=== PATIENT | female | born 2005 | race Caucasian/White ===

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

== ENCOUNTER → 2023-01-04 | Outpatient (CLI) | payer OTHER, SELFPAY | END | disposition home or self-care (01) | LOC: LAB 16:28 | PROVIDERS: Referring Provider Nurse Practitioner Women's Health; Visit Provider Nurse Practitioner Women's Health | DX: R10.2 Pelvic and perineal pain (principal) | CPT/HCPCS: 87070; 87077; 87086; 87088; 87205 ==

== ENCOUNTER → 2023-07-08 | Outpatient (CLI) | payer OTHER, SELFPAY ==
[2023-07-12 21:06] LABS: Chlamydia By Nucleic Acid AMP Negative (Negative); Gonococcus By Nucleic Acid AMP Negative (Negative)
== END | disposition home or self-care (01) ==
LOC: LABSPEC 11:17
PROVIDERS: Referring Provider Registered Nurse; Visit Provider Registered Nurse
DX: Z34.90 Encounter for supervision of normal pregnancy, unspecified, unspecified trimester (principal)
CPT/HCPCS: 87086; 87088; 87491; 87591

== ENCOUNTER 2023-07-19 08:00 | Outpatient (RCR) | payer OTHER, SELFPAY ==
--- NOTE | 2023-07-19 09:00 | BH.COMM_ITS ---
Communication Note Communication with Client Communication Note: Met with pt to complete paperwork. Completed [facility] which noted low risk. Consulted Dr. Goodman with plan to admits to [facility] level of care with dx. F33.2
--- NOTE | 2023-07-19 09:02 | BH.SGPN.GN ---
Behaviors/Verbalizations/Mental Status: [] Pt alert and oriented, casually dressed and groomed. Eye contact good. Motor activity appropriate. Speech within normal limits. Affect congruent, mood depressed and anxious. Thoughts linear, logical, no signs of hallucinations or delusions. Reviewed pt?s symptom tracker, no risk for suicidal ideation, plan, or intent 07/19/23 Client Response/Progress/Benefit: []Pt first day in IOP tx, she responded well to session, participating in processing with group and providing supportive feedback throughout. Pt reports feeling hopeful this morning, as she is optimistic the IOP program will help in better managing her mental health sx. Pt reports struggling with a healthy work-life balance, especially since her daughter was born about 6-7 months ago. Pt reports that she and her fiance have been struggling for the past year and that pt specifically struggles with managing irritability when around him. Reports this has resulted in them deciding to continue to live together but take a break romantically. Pt reports that work is the only place I feel like myself and that she was recently given a promotion which is stressful but exciting for her. Pt shared wanting to work on emotion regulation, conflict resolution, and healthy boundaries while in IOP tx. Pt appeared to benefit from group support. Pt will continue IOP tx to promote mood stability, increase distress tolerance skills, and improve daily functioning. Narrative Note: []
--- NOTE | 2023-07-19 10:10 | BH.SGPN.GN ---
Behaviors/Verbalizations/Mental Status: []Pt alert and oriented, casually dressed and groomed. Eye contact good. Motor activity appropriate. Speech within normal limits. Affect congruent, mood euthymic and anxious. Thoughts linear, logical, no signs of hallucinations or delusions. Client Response/Progress/Benefit: []Pt was an active participant in activity and taking notes during group discussion. Attentive during psychoeducation on coping skills, why people use unhealthy coping skills, and how to replace unhealthy coping skills. Group came up with list of negative coping skills including not asking for help, avoidance, isolating, and sleeping. Group discussed the effects of how negative coping skills can impact mental health in a negative way. Benefited from increased understanding of unhealthy coping skills and the need for developing healthy internal and external coping skills. Pt will continue IOP tx to promote use of healthy coping skills, challenge distorted thoughts, and prevent decompensation.
--- NOTE | 2023-07-19 11:10 | BH.SGPN.GN ---
Behaviors/Verbalizations/Mental Status: []Pt alert and oriented, casually dressed and groomed. Eye contact good. Motor activity appropriate. Speech within normal limits. Affect congruent, mood euthymic and positive. Thoughts linear, logical, no signs of hallucinations or delusions Client Response/Progress/Benefit: []Pt responded well to session, taking notes and contributing. Group discussed the different categories of coping skills which included distraction, emotional release, grounding, self-love, and thought challenging.? Pt participated in creating a coping skills ?menu? from the five categories of coping skills. Pt's coping skill menu included: reading, writing, deep breathing, wins journal, and opposite action. Appeared to benefit from increasing repertoire of healthy coping skills. Will continue IOP tx to continue use of healthy coping skills, challenge distortions, and prevent decompensation.
--- NOTE | 2023-07-20 09:10 | BH.NA ---
Physical Data Vital Signs Pulse Rate: 77 Blood Pressure: 116/69 Height/Weight Height: 1.65 m Weight:: 87.543 kg Weight in Pounds: 193.0 lbs Current Medication Compliance Medication Compliance Do you take your medication as prescribed?: No (client states she is forgetful about taking iron and vitamin) Nutritional History Appetite Nutritional Instructions: Describe your appetite:: Good Additional nutritional information:: Client states she is 7 months PP and hasn't really lost any weight since the end of her . Client states her appetite is good, and denies decreased intake due to morning sickness with this . Functional Assessment Sleep Pattern Describe any problems with sleeping: Client states her sleep varies, sometimes 4 hours per night but usually more. Client does have a 7 month old baby. Sensory/Communication Assess Communication Problems Do you have difficulty understanding what people are saying?: No Medical Problems/History Cardiac Conditions Cardiovascular: Other (See comments) (client states she had some heart palpitations during her first with some tachycardia. Client states she did have a holter monitor test and was supposed to get an echocardiogram but did not. Client denies palpitations now.) Respiratory Conditions Respiratory: Asthma Metabolic Conditions Metabolic: Other (See comments) (history of gestational diabetes with first and was on insulin. States she will be getting a glucose tolerance test early this (currently 12 weeks )) Pain Assessment Do you have acute or chronic pain?: No Family History Family History Grandmother Cervical cancer, Onset Age: 40 maternal Family history of recurrent miscarriage maternal- 2 miscarriages Grandfather Myocardial infarction Father Heart disease Mother Family history of recurrent miscarriage 2 miscarriages Aunt Family history of recurrent miscarriage Maternal- 2 miscarriages Additional History Additional comments:: depression and anxiety after of first child Surgical History Surgical History Have you had any surgeries? If so, list type and date:: No Substance Abuse Substance Abuse Please describe substance abuse in the last 30 days:: Client denies alcohol use. Client states she did vape nicotine some in high school, but denies use now. Client denies substance use. Client states she occasionally has coffee, but has minimal caffeine use while . Mental Status Summary Mental Status Significant Findings/Observations on Appearance and Mood:: Client is alert and oriented x 4. Client is casually groomed. Client is cooperative with assessment. Client makes good eye contact. Client's voice has normal rate and volume. Client has appropriate affect. Client makes logical associations and has normal processing. Client denies delusions/hallucinations. Client denies SI. Suicide Assessment Suicidal Ideation Are you currently or have you been suicidal in the past?: No Suicidal Intentional Rating Scale (SIRS): No suicidal thoughts (past or present) Physician Notification Past Psychiatric History MH Treatment Hx Past Psychiatric Medications:: Zoloft (off and on since age 13), Lexapro Age of first mental health symptoms: Client states she was first on medication for depression symptoms at age 13. Describe (age, circumstance, etc) any past hospitalizations: None. Current providers for mental health treatment (counselor, psychiatrist, pillowcase folder, etc.): [facility] for counseling. Fall Risk Assessment Age Age: Less than 60 Mental Status Mental Status: Willing & able to ask for assistance when needed Physical Status Physical Status: No problems Impairments Impairments: None Elimination Elimination: Continent AND independent Gait or Balance Gait or Balance: Walks independently Hx of Falls History of falls in the past 6 months: No known history Medications/Substances Medications/substances used within the past 24 hours or ordered to administer: None of the medications/substances list above Total Score Total Points:: 0 RN Summary of Impressions Impressions Recommendations Impressions: Psychiatric Issues: 1. Bipolar 2 disorder 2. Generalized anxiety disorder 3. Panic disorder 4. History of PTSD Level of Care How do the client's current symptoms and functional deficits support need for this level of care?: Client comes to IOP at this time stating she wants to work on coping skills. Client states her biggest stressors are issues with her relationship with her significant other and erratic moods and mood swings. Client has a 7 month old baby and is 12 weeks . Client reports some guilt, stating she fears she is not a good mother. Client reports feeling depressed the last several months, but denies SI. IOP will promote gains and prevent further decompensation while providing social support and skills training.
[2023-07-20 09:38] VITALS: BP 116/69; PULSE 77
--- NOTE | 2023-07-20 10:05 | BH.SGPN.GN ---
Behaviors/Verbalizations/Mental Status: []Pt alert and oriented, casually dressed and groomed. Eye contact good. Motor activity appropriate. Speech within normal limits. Affect congruent, mood calm. Thoughts linear, logical, no signs of hallucinations or delusions. Client Response/Progress/Benefit: []Pt was an active participant during interactive group discussions. Attentive during psychoeducation on the six types of boundaries. Pt along with peers contributed to interactive discussion on defining what a boundary is and group identified challenges to setting boundaries. Pt discussed personal barriers of not wanting to hurt people?s feelings and fear of losing relationships. Group reviewed the 6 types of boundaries. Pt stated she does well with physical and sexual boundaries, but feels she needs to improve upon emotional, intellectual, material, and time. Pt benefited from increased awareness and insight on the importance/benefit to setting healthy boundaries. Will continue IOP tx to increase distress tolerance skills, improve daily functioning, and reduce interpersonal conflict. Narrative Note: []
--- NOTE | 2023-07-20 11:15 | BH.SGPN.GN ---
Behaviors/Verbalizations/Mental Status: []Pt alert and oriented, casually dressed and groomed. Eye contact good. Motor activity appropriate. Speech within normal limits. Affect congruent, mood dysthymic, agitated. Thoughts linear, logical, no signs of hallucinations or delusions. Client Response/Progress/Benefit: []Pt responded well to session AEB listening attentively to peers and providing input throughout. Pt attentive during psychoeducation on the different boundary styles. Pt identified she was previously rigid with her partner and feels she is now porous, noting both styles have created much conflict within the relationship. Pt was given a handout on strategies for healthy boundary setting. Identified wanting to practice self-reflection and reducing use of over-apologizing to improve her own boundaries. Appeared to benefit from increasing insight to boundary setting and the impacts on mental health. Seemed to benefit from increased awareness of boundary styles and strategies to improve setting boundaries. Will continue IOP tx to improve emotion regulation, promote use of healthy coping skills, and prevent decompensation. Narrative Note: []
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
--- NOTE | 2023-07-20 12:38 | BH.DR.ITP ---
Initial Treatment Plan Patient Information Visit Information: ADMISSION DATE: EXPECTED LOS: 4-6 weeks Problems/Symptoms Problem #1:: Mood instability Symptom:: Depression, sadness, irritability, anger outburst, anhedonia, hopelessness, worthlessness, biological disruption of sleep, low energy, guilt. Problem #2:: Worry, rumination, panic attacks, avoidance
--- NOTE | 2023-07-22 09:01 | BH.SGPN.GN ---
Behaviors/Verbalizations/Mental Status: [] Pt alert and oriented, Casually dressed and groomed. Eye contact good. Motor activity appropriate. Speech within normal limits. Affect congruent, mood anxious. Thoughts linear, logical, no signs of hallucinations or delusions. Reviewed pt?s symptom tracker, no risk for suicidal ideation, plan, or intent. Client Response/Progress/Benefit: []Client responded well to session as evidenced by listening attentively to others and sharing with others. Per symptom tracker client reported a 1/5, with 5 being severe, for depressed mood and a 1/5 for anxiety. Client reported mental health positive was getting up early this morning to do her makeup and get ready before IOP. Client stated a stressor was lashing out this morning at her fiance, but she noted improvement with being able to recover quicker and apologize. Client stated additional mental health positive as starting to have increased self-awareness of when she is getting upset so she can take a break before reacting negatively. Seemed to benefit from support from peers. Client to continue IOP to improve distress tolerance, increase healthy coping skills, and prevent decompensation.
--- NOTE | 2023-07-22 10:10 | BH.SGPN.GN ---
Behaviors/Verbalizations/Mental Status: [] Client alert and oriented, casually dressed and groomed. Eye contact good. Motor activity appropriate. Speech within normal limits. Affect congruent, mood anxious. Thoughts linear, logical, no signs of hallucinations or delusions. Client Response/Progress/Benefit: [] Client was an active participant, AEB taking notes and providing input in group discussions and activities. Attentive during psychoeducation. Client engaged during interactive discussion in which the group defined self-care and discussed its benefits. Group discussed barriers to engaging in self-care as well as benefits which included; decreased irritability, decreased stress/anxiety, improved physical health, increased productivity, etc. Client participated in small group where they worked to identify common self-care ?myths? (self-care is selfish, self-care is self-indulgent, self-care is just personal hygiene, self-care should be fun, self-care is too time consuming, I don?t deserve it, self-care means I?m not being productive).Benefited from increased awareness of self-care, its benefits, and the consequences of not utilizing self-care strategies. Will continue IOP tx to prevent decompensation, increase healthy coping skills, and to improve functioning. Narrative Note: []
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
--- NOTE | 2023-07-22 15:02 | BH.MTP_ITS ---
Master Treatment Plan Patient Information Program Physician:: Dr. Goodman Primary Therapist:: Antoinette Hamilton [facility] Psychiatric Diagnoses Psychiatric Diagnoses:: Diagnosis #1:: Bipolar 2 disorder Diagnosis #2:: Generalized anxiety disorder Diagnosis #3:: Panic disorder Diagnosis #4:: History of PTSD Diagnosis Code(s):: F31.81 Estimated LOS Estimated LOS (in weeks):: 6 Problem/Goal #1 Problem/Goal #1 Stated Goal:: Client will decrease mood instability, depressive symptoms, and agitation due to Bipolar II through Intensive Outpatient Program. Description of Barriers: Potential barriers to treatment is negative self-talk, interpersonal relationship stress, anxious thoughts, agitation, and low motivation. Functional Impact: The patient is a 18-year-old engaged female with a long history of depression with recent depression, anxiety and erratic mood who is 7 months and currently 12 weeks with a second . She was referred by a friend. She complains of erratic mood and irritability. She endorses being irritable and having anger outburst at times that her fianc?. She endorses sadness, hopelessness, worthlessness, guilt and anhedonia which is lessening lately. Objectives Objective #1: Stated Objective: Client will learn and utilize 2-3 healthy coping strategies to manage depressive symptoms. Interventions: Therapist and group therapy will utilize CBT techniques to assist client with understanding the connection between thoughts, feelings and behaviors. Education will be provided on behavioral activation. Therapist will assist client in learning internal coping strategies to manage depressive symptoms, along with helping client identify triggers. Target Date: 08/30/23 Review Date: 08/16/23 Objective #2: Stated Objective: Client will identify 5 physical warning signs of anger and 5 ways to calm and manage anger. Interventions: Through individual therapy and group work will help client explore warning signs to anger and ager management strategies. Discharge Criteria: Client will have met this goal after being able to identify anger triggers, warning signs, and effective ways to cope or manage anger. Target Date: 08/30/23 Review Date: 08/16/23 Problem/Goal #2 Problem/Goal #2 Stated Goal:: Stabilize anxiety level while increasing ability to function and decreasing ruminative thoughts on a daily basis through Intensive Outpatient Program. Description of Barriers: Potential barriers to treatment is negative self-talk, interpersonal relationship stress, anxious thoughts, agitation, and low motivation. Functional Impact: The patient is a 18-year-old engaged female with a long history of depression with recent depression, anxiety and erratic mood who is 7 months and currently 12 weeks with a second . She was referred by a friend. She complains of erratic mood and irritability. She endorses being irritable and having anger outburst at times that her fianc?. She endorses sadness, hopelessness, worthlessness, guilt and anhedonia which is lessening lately. Objectives Objective #1: Stated Objective: Client will learn and implement 2-3 calming skills to reduce overall anxiety and manage anxiety symptoms. Interventions: Therapist and group sessions will help client identify physiological warning signs of anxiety, increase awareness of thoughts that increase anxiety, and identify behaviors that reinforce anxious symptoms. Group and individual counseling will teach client calming skills to help manage anxious symptoms. Discharge Criteria: Client will have achieved this goal when can verbalize at least 2 calming skills and reports skills successfully help reduce anxious symptoms. Target Date: 08/30/23 Review Date: 08/16/23 Objective #2: Stated Objective: Pt will decrease anxious symptoms AEB pt?s score on the DSM 5 cross-cutting measure improve pt?s daily functioning. Interventions: Through groups and individual therapy, pt will be provided education about anxiety?s impact on body and common physiological reaction to anxiety. Therapist will teach pt appropriate breathing techniques and build healthy coping skills to manage daily anxieties. Discharge Criteria: Pt will have met this goal when pt?s score on the DSM 5 cross cutting measure for anxiety has been decreased and per pt?s report daily functioning has improved. Target Date: 08/30/23 Review Date: 08/16/23
--- NOTE | 2023-07-22 16:02 | BH.MDN_ITS ---
Multi-Disciplinary Note Note 30-min Individual: Time Started:: 12:10 Date: 07/22/23 Purpose of session/treatment goals addressed:: Purpose of session was to assess current symptoms and stressors, gather background information, and prevent decompensation. Eye Contact:: Good Motor Activity:: Restless Appearance:: Casual Speech:: Appropriate Mood:: Anxious and Depressed Affect:: Constricted Thoughts:: Linear, Logical and No evidence of hallucinations/delusions noted Staff Interventions:: CBT techniques, rapport building, strengths perspective and treatment planning Client Response:: Client reported she is seeking treatment due to erratic mood and irritability. Client is 7 months post and is currently 12 weeks . Her symptoms worsened after her 0-ydgfn-xmmb-old daughter was born although she was also depressed during the . She feels guilt that she is not a good enough mother often. She endorses being irritable and having anger outburst at times towards her fianc?. She endorses sadness, hopelessness, worthlessness, guilt and anhedonia. She states that about every other month she feels she gets in moods where she is happy, talks fast, thinks fast, and engages in impulsive spending. She stated this has not happened in the past 3 months but before she said she used to get it about every other month. She is a worrier by nature and had panic attacks but none since 4 months ago. Client reported she has daily conflict and arguments with her fianc?. 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 Client stated their relationship status changes and currently they are living together, but not together. Client reported she has been newly diagnosed as having Bipolar II. Client stated when manic she is constantly irritable , has short bursts of anger, racing thoughts, sleeps for 3 hours and has plenty of energy. She stated this state lasts 1-5 days. Client reported while in IOP she wants to learn how to manage her anger, improve coping skills, increase independence, and stabilize moods. Risks/Concerns:: Denies suicidal/homicidal ideation, plan, or intention to date. future oriented. Progress Toward Goals/Plan:: No progress observed given first day in program. Client is struggling with daily irritability that impacts personal relationships. Client struggles with low motivation which impacts ability to get things done around the house. Client recently diagnosed with Bipolar 2 disorder and is struggling with erratic moods. Client wants to learn how to better manage her anger, irritability, and gain healthy coping skills. Client is to continue IOP to improve mood stability, increase healthy coping, improve daily functioning, and prevent decompensation. Time Stopped:: 13:40
--- NOTE | 2023-07-27 09:05 | BH.SGPN.GN ---
Behaviors/Verbalizations/Mental Status: [] Eye contact is good. Motor activity is appropriate. Appearance is casual. Speech is Appropriate. Mood is anxious. Affect is congruent. Thoughts are linear and logical. No evidence of psychosis. Reviewed daily check in sheet and no reports of suicidal ideations or intent. Client Response/Progress/Benefit: [] Pt participated at times during the group discussion. Attentive. Daily symptom tracker notes 5 for anxiety and 2/5 for depression/anxiety. Mental health wins was I started a win journal . Shared the structure of the journal which includes writing daily wins and goals for the week. She completes this prior to bed and has found it very helpful in improving her mood before bed as well as when she wakes up in the AM. She has also scheduled upcoming self-care and times away from her young child. Elaborated on how this will be beneficial for her mental health. Progress noted per pt report. Benefited from group support, encouragment, and feedback. Will continue in IOP to prevent decompensation, stabilize mood, and increase healthy coping. Narrative Note: []
--- NOTE | 2023-07-27 10:10 | BH.SGPN.GN ---
Behaviors/Verbalizations/Mental Status: [] Client alert and oriented, casually dressed and groomed. Eye contact good. Motor activity appropriate. Speech within normal limits. Affect congruent, mood euthymic. Thoughts linear, logical, no signs of hallucinations or delusions. Client Response/Progress/Benefit: [] Client responded well to session AEB sharing and listening attentively to others. Group provided examples of benefits of having social support, including: feeling like you matter, security, and motivation. Client shared personal benefit of ability to fully express emotions. Client also participated in group discussion regarding the barriers to accessing support including personal examples like: not reaching out, lack of communication, and over using certain supports. Client participated in experiential activity illustrating the impact communication, boundaries, and patience play in creating healthy support systems. Client appeared to benefit from increased knowledge of the benefits of social support and greater self-awareness. Will continue IOP tx to prevent decompensation, increase self worth, and improve overall functioning. Narrative Note: []
--- NOTE | 2023-07-27 11:10 | BH.SGPN.GN ---
Behaviors/Verbalizations/Mental Status: [] Client alert and oriented, casually dressed and groomed. Eye contact good. Motor activity appropriate. Speech within normal limits. Affect congruent, mood euthymic. Thoughts linear, logical, no signs of hallucinations or delusions. Client Response/Progress/Benefit: [] Client was an active participant throughout AEB contributing to discussion, providing personal examples, and taking notes. Client processed emotions felt in the activity and how they coped in the moment. Client provided input during discussion on the types of support our supports can provide. Client able to identify current support system and barriers that get in the way of using supports by drawing out their own support net. Client reported after identifying what type of supports they receive; they gained awareness that they could benefit from more emotional supports. Client identified steps to achieve this by joining new groups, getting therapy, and use new skills to find relationships. Client shared increasing this support will help them by feeling more validated. Client seemed to benefit from identifying the type of support client needs to work on improving. Client recommended to continue IOP tx to prevent decompensation, challenge thinking patters, and increase emotional regulation skills. Narrative Note: []
--- NOTE | 2023-08-03 09:05 | BH.SGPN.GN ---
Behaviors/Verbalizations/Mental Status: [Patient was alert and oriented, appropriately dressed and groomed. Eye contact was good, motor activity normal, speech within normal limits. Affect congruent, mood content. Thoughts linear, logical, no signs of hallucinations or delusions. Reviewed Patients symptom tracker and the patient reports moderate/severe in anxiety/panic attacks, moderate in agitation/irritability/anger, and low/moderate in depressed mood. Patient does not report symptoms in self-harm urges or thoughts/risk of suicide. ] Client Response/Progress/Benefit: [Patient was engaged and open to the discussion. Patient reported her mood to be ?hurt?. Patients first and second win was that she and her daughter have been very sick but she managed to get 6 loads of laundry and some other chores done and also has been able to comfort her daughter although she is not doing well. Patients stressor is that her in-laws have some terminal illnesses and having to support her fianc? as well as help take care of them has been hard on her mental health. Patient was interactive and respectful with other group members about their mental wins and stressors. Patient benefited from the discussion by listening to feedback and giving input on her peer?s stressors and mental health wins. Patient will continue with IOP treatment to help develop healthy skills, promote mood stability, and improve distress tolerance. ] Narrative Note: []
--- NOTE | 2023-08-03 11:15 | BH.SGPN.GN ---
Behaviors/Verbalizations/Mental Status: []Pt alert and oriented, casually dressed and groomed. Eye contact good. Motor activity appropriate. Speech within normal limits. Affect congruent, mood tired. Thoughts linear, logical, no signs of hallucinations or delusions. Client Response/Progress/Benefit: [] Pt responded well to session AEB taking notes and contributing to discussion throughout. Pt engaged as group continued discussion on acceptance and the mental health benefits of practicing acceptance. Pt and peers identified what makes acceptance challenging and pt completed a self-reflection exercise on what is hard to accept in pt's life. Pt identified struggling to accept being a young mother?. Group identified strategies to increase acceptance and pt shared wanting to focus on continuing to move forward with difficult transitions and giving herself compassion. Pt appeared to benefit from gaining insight and learning strategies to increase acceptance. Pt will continue IOP tx to reduce negative thinking patterns, increase self-care practices, and improve emotional regulation skills. Narrative Note: []
--- NOTE | 2023-08-03 12:08 | PCM.BH.PN_ITS ---
Progress Note Progress Note: History of Present Illness/Interim History: The patient is a 18-year-old female with a long history of depression with recent depression, anxiety and erratic moods resulting in a diagnosis of bipolar 2 disorder. I last saw the patient 2 weeks ago and she is seen in follow-up today at the [facility] behavioral health IOP. The patient had started Latuda 2 weeks ago and she feels that she may be slightly improved in the past few days with her irritability. She denies any side effects on Latuda but she states that recently she had the flu for 2 days and missed her dose and did notice that she was more irritable and angry during the days off Latuda and then when she was taking it. She is making progress according to the staff and is engaged in the program when she attends. The patient states that she has had less anger outbursts in the past week while taking Latuda and less sadness. She has much less hopelessness now than before but still endorses guilt and mild anhedonia. She is sleeping okay now overall but sometimes she has to get up with her 7-month-old daughter who sometimes has sleep issues. She has somewhat low energy but is about 14 weeks . She denies passive thoughts of , suicidal ideation, homicidal ideation, plan for suicide, hallucinations or delusions. She described a history of what sounded like occasional hypomanic episodes at the initial visit. Current Psychiatric Medications: [] Latuda 20 mg p.o. daily with food (x 2 weeks) Mental Status Examination: [] The patient is a 18-year-old female who appears normal for stated age and is casually dressed and groomed with good hygiene. She has no psychomotor agitation or retardation and is ambulatory with a normal gait. She is cooperative and pleasant during the interview. Speech is normal rate and rhythm and fluent with no pressure and eye contact is good. Mood is somewhat irritable and down still. Affect is full and normal. Thought process is goal-directed and organized. Thought content: There is evidence still of some irritability and 1 anger outburst. There is no evidence of passive thoughts of , suicidal ideation, homicidal ideation, plan for suicide, hallucinations, delusions or symptoms of marilou. Reality testing is intact. Intelligence is above average. Judgment is intact. Insight improving and fair. Impulsivity moderate. Diagnoses: [] 1. Bipolar 2 disorder 2. Generalized anxiety disorder 3. Panic disorder 4. History of PTSD 5. 14-week intrauterine 6. Primary support issues Plan: [] The patient will continue the IOP in behavioral health at [facility] as the structure, support, education and group therapy will hopefully prevent worsening of the patient's symptoms which could require hospitalization. She felt safe during the interview and if it anytime she does not feel safe she will let us know or go to the emergency room. The risk, options, possible complications and side effects of the medications were discussed with the patient again and she understands and accepts these. She agrees to increase her Latuda to 40 mg daily with food in 2 days. Prescription is sent in for this. She understands she has to take it with food or it will not be absorbed. She will continue to follow-up with her outpatient providers medical and psychiatric and I will see the patient in follow-up in 2 weeks.
--- NOTE | 2023-08-04 09:05 | BH.SGPN.GN ---
Behaviors/Verbalizations/Mental Status: [] Eye contact is good. Motor activity is appropriate. Appearance is casual. Speech is Appropriate. Mood is depressed. Affect is congruent. Thoughts are linear and logical. No evidence of psychosis. Reviewed daily check in sheet and no reports of suicidal ideations or intent. Client Response/Progress/Benefit: [] Pt was an active participant in group discussion. Attentive. Daily symptom tracker notes 4/5 for depression and 3/5 for anxiety/irritability. Shared that she had been struggling since over the weekend. Trigger was getting sick which led to missed 2 days of psych medications. Increased anxiety, stress, and depression related to psychosocial stressors. She used the group to vent frustrations and triggers to anxiety. Group was able to refeame thoughts, provide support, and offer feedback which was helpful. Able to identify mental health wins which included helping out support and managing through a very stressful and overwhelming event which increase her confidence in her ability to manage her emotions as well as use skills. Limited progress noted. Has been medication compliant. Will continue in IOP to prevent decompensation, stablize mood, increase healthy coping, and improve functioning. Narrative Note: []
--- NOTE | 2023-08-04 10:15 | BH.SGPN.GN ---
Behaviors/Verbalizations/Mental Status: []Client alert and oriented, casually dressed and groomed. Eye contact good. Motor activity appropriate. Speech within normal limits. Affect congruent, mood depressed. Thoughts linear, logical, no signs of hallucinations or delusions. Client Response/Progress/Benefit: []Pt engaged in session AEB listening attentively to others and providing insight to group discussion. Pt engaged in activity, able to connect how it can be uncomfortable and difficult to accept when things are out of one?s own control. Pt worked with group to identify what things in life can be hard to accept. Group identified things hard to accept as: , body image, loss of relationship, mental health diagnosis, other?s behaviors, and past decisions. Pt worked on identifying what personal things are hard to accept for themself, sharing her parent's health, caregiving responsibilities, current , and finances are some things pt struggles with accepting. Pt seemed to benefit from increased awareness of importance of acceptance. Pt to continue IOP to improve mood stability, increase application of distress tolerance and behavior activation skills, and prevent decompensation. Narrative Note: []
--- NOTE | 2023-08-04 10:20 | BH.SGPN.GN ---
Behaviors/Verbalizations/Mental Status: []Pt alert and oriented, casually dressed and groomed. Eye contact good. Motor activity appropriate. Speech within normal limits. Affect congruent, mood tired but engaged. Thoughts linear, logical, no signs of hallucinations or delusions. Client Response/Progress/Benefit: [] Client connected with topic of Anxiety and participated throughout, providing input and taking notes. Participated throughout interactive discussion defining anxiety and identifying cognitive and physiological symptoms of anxiety. Group discussed how anxiety can prevent them from trying new things. Common physical and cognitive symptoms identified by group included: ?what if thoughts?, ?fear of failure?, negative self-talk, increased heart rate, restlessness, and getting sick more frequently. Client identified avoidance and reassurance seeking as their safety behaviors. Benefited from increased awareness and insight on anxiety and its impact. Pt will continue IOP tx to promote mood stability, increase self-compassion, and reduce irritability. ? Narrative Note: []
--- NOTE | 2023-08-04 11:15 | BH.SGPN.GN ---
Behaviors/Verbalizations/Mental Status: []Pt alert and oriented, causal appearance. Eye contact good. Motor activity appropriate. Speech within normal limits. Affect congruent, mood euthymic. Thoughts linear, logical, no signs of hallucinations or delusions. Client Response/Progress/Benefit: [] Pt was an active participant AEB pt providing input and listening attentively to peers. Attentive during psychoeducation on mindfulness coping skills and their impact on reducing anxiety and improving overall mental health wellness. Group was able to identify self-soothing and mind-based coping skills which included: 5-senses, meditation, deep breathing, journaling, and progressive muscle relaxation. Pt also participated with peers in practicing mindfulness skills in session. Pt would like to work on belly breathing, progressive muscle relaxation, and stretching. Appeared to benefit from increasing repertoire of anxiety reduction skills. Pt will continue in IOP tx to increase healthy coping skills, challenge distortions, and prevent decompensation.
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
--- NOTE | 2023-08-09 09:05 | BH.SGPN.GN ---
Behaviors/Verbalizations/Mental Status: [] Eye contact is good. Motor activity is appropriate. Appearance is casual. Speech is Appropriate. Mood is depressed. Affect is congruent. Thoughts are linear and logical. No evidence of psychosis. Reviewed daily check in sheet and no reports of suicidal ideations or intent. Client Response/Progress/Benefit: [] Pt was an active participant in group discussion. Attentive. Daily symptom tracker notes 2/5 for depression, anxiety, and irritability. Able to identify mental health wins which include getting back on my skincare routine , purchasing educational books on Bipolar, and utilizing opposite action. Emotion for today is unmotivated . Share an incident at work where she felt she has to choose between work and her child which resulted in conflict and frustration. Elaborated on how this impacted her mental health. Continue to report struggles with low energy, motivation, and depression which impacts her functioning. I just have a couple things to do but its a struggle . Benefited from group support, encouragement, and feedback. Progress noted per pt report. Will continue in IOP to prevent decompensation, stabilize mood, and increase healthy coping. Narrative Note: []
--- NOTE | 2023-08-09 10:15 | BH.SGPN.GN ---
Behaviors/Verbalizations/Mental Status: []Eye contact is good. Motor activity is appropriate. Appearance is casual. Speech is Appropriate. Mood is euthymic. Affect is congruent. Thoughts are linear and logical. No evidence of psychosis. Client Response/Progress/Benefit: [] Pt was an active participant in group discussions. Attentive during psychoeducation on the communication styles and the obstacles to effective communication. Contributed during interactive discussion on the benefits of communicating effectively which included; having one's needs met, decreases stress and uncertainty, improves relationships, increases trust, and increases understanding of others. Worked well in small group in which pt and peers identified the benefits and disadvantages to the different communication styles. Benefited from increased understanding of communication styles and how these can impact effective communication. Pt reports identifying most with passive-aggressive and aggressive communication. Pt states this impacts her relationship with her fianc?. Will continue in IOP to promote mood stability, increase distress tolerance, and improve self-compassion. ? Narrative Note: []
--- NOTE | 2023-08-09 11:15 | BH.SGPN.GN ---
Behaviors/Verbalizations/Mental Status: []Pt alert and oriented, causally dressed and groomed. Eye contact good. Motor activity appropriate. Speech within normal limits. Affect congruent, mood euthymic. Thoughts linear, logical, no signs of hallucinations or delusions. Client Response/Progress/Benefit: [] Pt responded well to session AEB Pt listening attentively to others and providing input during group discussion on the pay offs and costs of the different communication styles. Pt able to connect how current communication style impacts mental health. Connected with peers comments about importance of using assertive communication. Pt reported she wants to work on being more direct and learning to say no to others so she doesn't overwhelm herself. Pt seemed to benefit from increasing awareness of healthy strategies to improve communication. Will continue IOP tx to continue use of healthy coping skills, build confidence, and prevent decompensation.
--- NOTE | 2023-08-10 10:15 | BH.SGPN.GN ---
Behaviors/Verbalizations/Mental Status: []Patient was alert and oriented, casually dressed and groomed. Eye contact was good, motor activity normal, speech within normal limits. Affect congruent, mood content. Thoughts linear, logical, no signs of hallucinations or delusion Client Response/Progress/Benefit: [] Pt was an active participant in the group discussions AEB providing input and taking notes. Attentive during psychoeducation Goal Setting. Participated during the discussion on common barriers lack of motivation, making excuses, not feeling good enough, and lack of support. Group also identified benefits sense of purpose, improved self-confidence, more motivation for other goals, and improved mental health. Pt reports struggling specifically with barriers of making excuses and lack of motivation. Benefited from increased awareness of mental health benefits of goals as well as psychoeducation on SMART goal criteria. Will continue in IOP to promote mood stability, increase daily functioning, and further improve emotional regulation skills. Narrative Note: []
--- NOTE | 2023-08-10 11:15 | BH.SGPN.GN ---
Behaviors/Verbalizations/Mental Status: []Pt alert and oriented, neatly dressed and groomed. Eye contact good. Motor activity appropriate. Speech within normal limits. Affect congruent, mood euthymic. Thoughts linear, logical, no signs of hallucinations or delusions Client Response/Progress/Benefit: [] Pt was engaged during discussion and willing to complete the worksheet challenging them to develop a personal SMART goal. Pt chose the goal of finishing cleaning and putting away the box of clothes she has left to unpack. Pt stated this will ?take a weight off my shoulders? if pt can accomplish this goal. Pt identified making excuses, lack of motivation, and time management barriers. Identified solutions such as creating brain breaks, asking for support, and using opposite action. Pt receptive to identifying solutions for these barriers and willing to begin working on this goal. Benefited from this group by developing a short-term SMART goal related to mental health. Will continue IOP tx to promote mood stability, reduce negative thinking patterns, and increase emotional regulation skills. Narrative Note: []
--- NOTE | 2023-08-10 14:44 | BH.TPR ---
Treatment Plan Review Demographics Date of Admission:: 07/19/23 Date of Treatment Plan Review:: 08/10/23 Admitting Diagnoses:: 1. Bipolar 2 disorder F31.81 2. Generalized anxiety disorder 3. Panic disorder 4. History of PTSD Current Diagnoses:: 1. Bipolar 2 disorder F31.81 2. Generalized anxiety disorder 3. Panic disorder 4. 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 When pt attends she appears engaged AEB taking notes and providing input at times during group discussions. Pt does an overall good job of applying skills/strategies discussed in individual counseling to her daily life. Status of Current Problems and Symptoms: Ongoing problems. Pt is continuing to report moderate anxiety and depressed symptoms. Pt stated when her child is sick her anxiety and agitation tend to increase significantly. Pt reported when her agitation is higher it often leads to large blow ups between her and her fianc?. Pt reports variable motivation levels, low energy, anxious thoughts, and mild to moderate anxiety. Per pt's DSM 5 cross cutting measure at review her overall mental health symptoms have decreased by 43%. Progress Problem #1: Problem Name:: Mood Instability Status of Goals:: Obj 1 - met, ongoing work encouraged. Pt is able to identify healthy coping skills like opposite action, taking a break, exercise, and thought challenge. Client does struggle with consistent use of skills at times. Obj 2 -not met. Pt is able to identify triggers to anger and strategies that can help her in the moment calm down. However, pt reports continued struggle with managing her emotions when having an argument with her fiance. Per pt's DSM 5 cross cutting measure her anger/agitation has decreased by 50%. Team Recommendations:: Team recommends pt continue current goals and objectives to reinforce consistent use of healthy coping skills, and help build calming skills for agitation and anxiety. Problem #2: Problem Name:: Anxiety Status of Goals:: Obj 1 - not met. Pt is able to identify calming skills like belly breathing, grounding, and mindfulness. Patient is starting to utilize the skills but struggles with consistency. Objective 2 - not met. Per DSM-V cross-cutting measures at review anxiety has reduced by 12%. Team Recommendations:: Team recommends pt continue current goals and objectives to reinforce consistent use of healthy coping skills, and help build calming skills for agitation and anxiety.
--- NOTE | 2023-08-11 09:05 | BH.SGPN.GN ---
Behaviors/Verbalizations/Mental Status: []Eye contact is good. Motor activity is appropriate. Appearance is casual. Speech is Appropriate. Mood is euthymic. Affect is congruent. Thoughts are linear and logical. No evidence of psychosis. Reviewed daily check in sheet and no reports of suicidal ideations or intent. Client Response/Progress/Benefit: []Pt responded well to session, attentive and providing input to peers. Pt reports feeling joyful this morning as pt feels she is utilizing healthy coping skills and it is working out well for pt. Pt shared that she has been working on conflict resolution skills by using a code word with her fiance when things get too heated and they were able to de-escalate a big argument last night using this technique. Pt stated that because she is managing her emotions better, she is less emotional reactive to other stressors like this morning when her baby had a blow out right when I was walking out the door. Pt also gave herself credit for getting up early today and practicing some self-care by putting on makeup. Pt's stressor today is her job and feeling like she is burnout. Pt receptive to feedback from group of writing a pros and cons list of leaving or staying at her job. Pt appeared to benefit from reflecting on her application of healthy coping skills. Pt will continue IOP tx to promote mood stability, reinforce healthy coping skills, and improve daily functioning. Narrative Note: []
--- NOTE | 2023-08-11 10:15 | BH.SGPN.GN ---
Behaviors/Verbalizations/Mental Status: []Pt alert and oriented, casually dressed and groomed. Eye contact good. Motor activity appropriate. Speech within normal limits. Affect congruent, mood euthymic. Thoughts linear, logical, no signs of hallucinations or delusions. Client Response/Progress/Benefit: []Pt was an active participant in group discussion and activity. Attentive during psychoeducation. Along with peers, pt was able to identify barriers to taking action in their life. Identified several symptoms and stressors that she feels are holding her back from progress such as negative self-talk, self-doubt, low motivation, and codependency. Stated these things have kept pt from making healthy changes, stepping out of her comfort zone, setting and maintaining healthy boundaries, and reinforced self-sabotage. Pt shared that she wants to begin addressing the impact negative perspective and relying on other's opinions has had on her ability to take action. Benefited from increased self-awareness of obstacles. Will continue IOP tx to improve mood management, promote consistent skill application, and further promote healthy conflict resolution and communication. Narrative Note: []
== END 2023-08-17 23:59 ==
LOC: BHIOP 08:00
PROVIDERS: Referring Provider Psychiatry & Neurology Psychiatry; Visit Provider Psychiatry & Neurology Psychiatry
DX: O99.341 Other mental disorders complicating pregnancy, first trimester (principal); F31.81 Bipolar II disorder; F41.1 Generalized anxiety disorder; F41.0 Panic disorder [episodic paroxysmal anxiety]; Z3A.12 12 weeks gestation of pregnancy
CPT/HCPCS: S9480; 90832; 90834; 90853

== ENCOUNTER → 2023-08-04 | Outpatient (CLI) | payer OTHER, SELFPAY ==
[2023-08-04 13:36] LABS: Basophil# 0.02 X10^3/uL; Basophil% 0.3 % (0-1); Eosinophil# 0.13 X10^3/uL; Eosinophils% 1.7 % (0-5); Hematocrit 38.9 % (37-47); Hemoglobin 13.5 g/dL (12.0-15.0); Lymphocyte % 25.2 % (19-41); Mean Corp Hgb Conc 34.7 g/dL (32-36); Mean Corpuscular Volume 86.4 fL (81-99); Mean Platelet Vol. 10.8 fl (6.2-12.0); Monocyte# 0.46 X10^3/uL; Monocyte% 6.1 % (0-10); NRBC Flagged by Analyzer 0 % (0-5); Neutrophil # 4.99 X10^3/uL (2.7-7.7); Neutrophil % 66.3 % (47-70); Platelet Count 274 K/mm3 (150-450); RBC Distribution Width SD 41.1 fl (35.1-43.9); White Blood Count 7.5 K/mm3 (4.4-11.0)
--- OUTSIDE RECORDS SUMMARY | 2023-08-04 13:36 | XMS RPT_ITS | CCD ---
Author Name Unknown Address [address] [place] [address] Organization [facility] Care Team Providers Care Long Term Care Administrator Name Role Phone Playl Aden YOUNGER Primary Care Provider Aamir Mckeon DO Primary Care Provider [phone] AAMIR MCKEON Primary Care Unavailable Medications Current Medications Medication Drug Class(es) Dates Sig (Normalized) Sig (Original) amoxicillin 875 mg / clavulanate 125 mg oral tablet (1 source) Penicillin-class Antibacterial Start: 05-25-2023 End: 06-01-2023 take 1 tablet by mouth twice daily amoxicillin-clav ulanate potassium (AUGMENTIN) 875-125 mg per tablet Take 1 tablet by mouth two times a day for 7 days. 14 tablet 0 05/25/2023 06/01/2023 Active Completed/Discontinued Medications Medication Drug Class(es) Dates Sig (Normalized) Sig (Original) [id number] 200 actuat albuterol 0.09 mg/actuat metered dose inhaler (3 sources) beta2-Adrenergic Agonist Start: 08-27-2021 take 2 puff(s) by inhalation every six hours as needed for wheezing albuterol HFA (PROVENTIL HFA, VENTOLIN HFA) 90 mcg/actuation inhaler Inhale 2 Puffs as instructed every 6 hours as needed for wheezing/shortnes s of breath. Administer using a spacer. 1 Inhaler 2 08/27/2021 Active Problems Active Problems Problem Classification Problem Date Documented Date Episodic/Chronic Anxiety disorders (3 sources) Generalized anxiety disorder; Translations: [Generalized anxiety disorder] Onset: 08-04-2021 08-04-2021 Chronic Asthma (3 sources) Uncomplicated mild persistent asthma; Translations: [Mild persistent asthma, uncomplicated] Onset: 09-27-2016 08-27-2021 Chronic Mood disorders (3 sources) Depressive disorder; Translations: [Depression] Onset: 08-04-2021 08-04-2021 Chronic Other connective tissue disease (1 source) Swelling of hand; Translations: [Other specified soft tissue disorders] Episodic Other upper respiratory infections (1 source) Bacterial sinusitis; Translations: [Chronic sinusitis, unspecified] 05-25-2023 Chronic Past or Other Problems Problem Classification Problem Date Documented Da te Episodic/Chronic Acquired foot deformities (3 sources) Talipes planus; Translations: [Flat foot [pes planus] (acquired), unspecified foot] Onset: 07-20-2017 07-20-2017 Episodic Other skin disorders (3 sources) Acne vulgaris; Translations: [Acne vulgaris] Onset: 08-18-2015 08-18-2015 Episodic Residual codes; unclassified (3 sources) Influenza vaccination declined; Translations: [Immunization not carried out because of patient refusal] Onset: 07-20-2017 07-20-2017 Episodic Results Test Name Value Interpretation Reference Range Facil ity Vital Signs Date Time Vital Sign Value Performing Clinician Mary [email or web address] 05-25-2023 10:28-0500 Body temperature 98.01 [degF] Becca Athy PA-C Work Phone: [facility] 05-25-2023 10:28-0500 Body weight 89.9 kg Becca Athy PA-C Work Phone: [facility] 05-25-2023 10:28-0500 Diastolic blood pressure 72 mm[Hg] Becca Athy PA-C Work Phone: [facility] 05-25-2023 10:28-0500 Heart rate 90 /min Becca Athy PA-C Work Phone: [facility] 05-25-2023 10:28-0500 Respiratory rate 18 /min Becca Athy PA-C Work Phone: [facility] 05-25-2023 10:28-0500 SaO2% (BldA) [Mass fraction] 98 % Becca Athy PA-C Work Phone: [facility] 05-25-2023 10:28-0500 Systolic blood pressure 110 mm[Hg] Becca Athy PA-C Work Phone: [facility] 11-05-2021 12:07-0400 Body temperature 98.1 [degF] Becca Sty PA-C Work Phone: [facility] 11-05-2021 12:07-0400 Body weight 77.66 kg Becca Sty PA-C Work Phone: [facility] 11-05-2021 12:07-0400 Diastolic blood pressure 72 mm[Hg] Becca Sty PA-C Work Phone: [facility] 11-05-2021 12:07-0400 Heart rate 66 /min Becca Sty PA-C Work Phone: [facility] 11-05-2021 12:07-0400 Respiratory rate 16 /min Becca Sty PA-C Work Phone: [facility] 11-05-2021 12:07-0400 SaO2% (BldA) [Mass fraction] 100 % Becca Stearns PA-C Work Phone: [facility] 11-05-2021 12:07-0400 Systolic blood pressure 124 mm[Hg] Becca Sty PA-C Work Phone: [facility] Encounters Encounter Date Encounter Type Care Provider Facility Start: 05-25-2023 End: 05-25-2023 ambulatory AAMIR MCKEON Facility:[facility] Start: 05-25-2023 End: 05-25-2023 Patient encounter procedure Beccaangelito Stearns PA-C Work Phone: [facility] Procedures Date Procedure Procedure Detail Performing Clinician Start: 08-27-2021 Adult depression screening assessment Becca Stearns PA-C Work Phone: Plan of Treatment Date Care Activity Detail Author Start: 11-03-2032 Urine microalbumin profile DTa P,Tdap,Td Vaccine (8 - Td or Tdap) [facility] Start: 02-05-2026 Urine microalbumin profile DTA P,TDAP,TD (7 - Td or Tdap) [facility] Start: 08-27-2023 ASTHMA ACTION PLAN ASTHMA ACTION JADYN N [facility] Start: 03-18-2023 Influenza vaccination Influenza Vacc ine (#1) [facility] Start: 11-16-2022 CHLAMYDIA SCREENING (18-24) CHLAMYDIA SCREENING (18-24) [facility] Start: 11-16-2022 GC (GONORRHEA) SCREE SHEYLA (18-24) GC (GONORRHEA) SCREENING (18-24) [facility] Start: 08-27-2022 Adult depression scr eening assessment DEPRESSION SCREENING [facility] Start: 08-27-2022 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 GONZALO DISEASE VISIT ANNUAL PCP TEAM CHRONIC DISEASE VISIT [facility] Start: 08-27-2022 ASTHMA CONTROL TEST ASTHMA CONTROL T EST [facility] Start: 03-18-2022 Influenza vaccination INFLUENZA (Sea son Ended) [facility] Start: 2021 CHLAMYDIA SCREENING (18-24) CHLAMYDIA SCREENING (18-24) [facility] Start: 2021 GC (GONORRHEA) SCREE SHEYLA (18-24) GC (GONORRHEA) SCREENING (18-24) [facility] Start: 2021 HEPATITIS C SCREENING HEPATITIS C SC REENING [facility] Start: 2021 HIV SCREENING HIV SCREENING [facility] Start: 2021 SPIROMETRY SPIROMETRY [facility] Start: 2019 Meningococcal B Vacc ine: Consider Based On Risk (1 of 2 - Patient Seeks Protection) Meningococcal B Vaccine: Consider Based On Risk (1 of 2 - Patient Seeks Protection) [facility] Start: 2019 MENINGOCOCCAL CONJUG ATE (2 - 2-dose series) MENINGOCOCCAL CONJUGATE (2 - 2-dose series) [facility] Start: 2017 PEDS TO ADULT TRANSI TION ANNUAL ASSESSMENT PEDS TO ADULT TRANSITION ANNUAL ASSESSMENT [facility] Start: 2015 PEDS TO ADULT TRANSI TION INITIAL DISCUSSION PEDS TO ADULT TRANSITION INITIAL DISCUSSION [facility] Start: 2013 MENINGOCOCCAL B: Con fur glazer based on risk (1 of 2 - Risk Bexsero 2-dose series) MENINGOCOCCAL B: Consider based on risk (1 of 2 - Risk Bexsero 2-dose series) [facility] Start: 2009 Pneumococcal vaccination Pneum ococcal Vaccine (1 - PCV) [facility] Start: 2008 COVID-19 VACCINE (1) COVID-19 VACCIN E (1) [facility] Start: 2003 Covid-19 Vaccine (#1) Cov[facility] Vacci ne [facility] Immun[facility] Immunization Date Immunization Notes Care Provider Fa florencia 07-20-2017 Human Papillomavirus 9-valent vaccine Becca Stearns PA-C Work Phone: [facility] Work Phone: 07-20-2017 influenza virus vacc ine, unspecified formulation Becca RODRIGUEZMobile[employer] Work Phone: [facility] 02-06-2016 Human Papillomavirus 9-valent vaccine Becca MARINAOddcast Work Phone: [facility] Work Phone: 02-06-2016 meningococcal polysaccharide (groups A, C, Y and W-135) diphtheria toxoid conjugate vaccine (MCV4P) Becca [employer]RIGUE[employer]Mobile[employer] Work Phone: [facility] Work Phone: 02-06-2016 tetanus toxoid, redu joesph diphtheria toxoid, and acellular pertussis vaccine, adsorbed Becca [employer] Work Phone: [facility] Work Phone: 02-06-2016 varicella virus vaccine Becca Stearns PA-C Work Phone: [facility] Work Phone: 05-12-2009 influenza virus vacc ine, live, attenuated, for intranasal use Becca [employer] Work Phone: [facility] Work Phone: 02-11-2009 diphtheria, tetanus toxoids and acellular pertussis vaccine Becca Stearns PA-C Work Phone: [facility] Work Phone: 02-11-2009 measles, mumps and rubella virus vaccine Becca Stearns PA-C Work Phone: [facility] Work Phone: 02-11-2009 poliovirus vaccine, inactivated Becca Athy PA-C Work Phone: [facility] Work Phone: 01-05-2005 diphtheria, tetanus toxoids and acellular pertussis vaccine Becca Athy PA-C Work Phone: [facility] 01-05-2005 haemophilus influenz ae type b vaccine, HbOC conjugate Becca Athy PA-C Work Phone: [facility] 01-05-2005 pneumococcal conjuga te vaccine, 7 valent Becca Athy PA-C Work Phone: [facility] 09-02-2004 measles, mumps and rubella virus vaccine Becca Athy PA-C Work Phone: [facility] 09-02-2004 varicella virus vaccine Becca Athy PA-C Work Phone: [facility] 04-22-2004 pneumococcal conjuga te vaccine, 7 valent Becca Athy PA-C Work Phone: [facility] 01-22-2004 diphtheria, tetanus toxoids and acellular pertussis vaccine Becca Athy PA-C Work Phone: [facility] 01-22-2004 haemophilus influenz ae type b vaccine, HbOC conjugate Becca Athy PA-C Work Phone: [facility] 01-22-2004 hepatitis B vaccine, pediatric or pediatric/adolescent dosage Becca Athy PA-C Work Phone: [facility] 01-22-2004 poliovirus vaccine, inactivated Becca Athy PA-C Work Phone: [facility] 2003 diphtheria, tetanus toxoids and acellular pertussis vaccine Becca Athy PA-C Work Phone: [facility] 2003 haemophilus influenz ae type b vaccine, HbOC conjugate Becca Athy PA-C Work Phone: [facility] 2003 pneumococcal conjuga te vaccine, 7 valent Becca Athy PA-C Work Phone: [facility] 2003 poliovirus vaccine, inactivated Becca Athy VENTURA Work Phone: [facility] 2003 diphtheria, tetanus toxoids and acellular pertussis vaccine Becca Stearns JENNIFER-Angeline Work Phone: [facility] 2003 haemophilus influenz ae type b vaccine, HbOC conjugate Becca Stmalaika RODRIGUEZ-C Work Phone: [facility] 2003 pneumococcal conjuga te vaccine, 7 valent Beccaangelito Stmalaika RODRIGUEZ-C Work Phone: [facility] 2003 poliovirus vaccine, inactivated Becca Stmalaika RODRIGUEZ-C Work Phone: [facility] 2003 hepatitis B vaccine, pediatric or pediatric/adolescent dosage Becca Stmalaika RODRIGUEZ-Angeline Work Phone: [facility] 2003 hepatitis B vaccine, pediatric or pediatric/adolescent dosage Becca Stmalaika RODRIGUEZ-C Work Phone: [facility] Payers Date Payer Category Payer Private Health Insurance [employer] A ETNA CHOICE POS II [id number] 2011-Present [phone] [address] [place] [address] POS [id number] Social History Date Type Detail Facility Start: 05-25-2023 Tobacco smoking stat [facility] Never smoked tobacco [facility] Start: 11-05-2021 End: 05-25-2023 Alcohol intake Lifetime non-drinker (finding) [facility] Start: 11-05-2021 History SDOH Alcohol Frequency 1 [facility] Start: 2003 Sex Assigned At Not on file [facility] Start: 10-26-2021 End: 11-16-2021 Exposure to SARS-CoV-2 (event) Not sure [facility] Start: 05-25-2023 Tobacco use and exposure Smoke less tobacco non-user [facility] Start: 11-23-2022 End: 05-25-2023 History of Social function [facility] Start: 11-23-2022 End: 05-25-2023 Tobacco use panel [facility] National Score (1-10 0), lower number is lower risk 90 [facility] Progress note 05-25-2023 Note Date & Type Note Facility 05-25-2023 Note HNO ID: [id number] Author: Becca Stearns PA-C Service: ? Author Type: Physician Rn Night Type: Progress Notes Filed: 05/25/2023 11:27 AM Note Text: This note was created using AppSheetriter. Subjective Shawanda Staley is a 17 year old female. HPI Patient presents with the chief complaint of sinus pressure and congestion for 2 weeks. She has also had a cough. She denies a fever. No vomiting or diarrhea. Her daughter had been sick with bronchiolitis recently. She is not currently breast-feeding but does think she is . Last menstrual cycle was April 23 and she took 2 home test which were positive. No OTC meds used. Review of Systems Constitutional: Negative. HENT: Positive for congestion, rhinorrhea, sinus pressure and sinus pain. Negative for ear pain. Respiratory: Positive for cough. Negative for shortness of breath and wheezing. Cardiovascular: Negative. Gastrointestinal: Negative. Genitourinary: Negative. Musculoskeletal: Negative. All other systems reviewed and are negative. PAST MEDICAL HISTORY Diagnosis Date Acne vulgaris 08/18/2015 Cough variant asthma 09/27/2016 PMH - PAST MEDICAL HISTORY OF vascular rose left ankle Current Outpatient Medications Medication Sig Dispense Refill amoxicillin-clavulanate potassium (AUGMENTIN) 875-125 mg per tablet Take 1 tablet by mouth two times a day for 7 days. 14 tablet 0 sertraline (ZOLOFT) 50 mg tablet Take 1 tablet by mouth once daily. (Patient not taking: Reported on 05/25/2023) 30 tablet 1 albuterol HFA (PROVENTIL HFA, VENTOLIN HFA) 90 mcg/actuation inhaler Inhale 2 Puffs as instructed every 6 hours as needed for wheezing/shortness of breath. Administer using a spacer. (Patient not taking: Reported on 11/05/2021 ) 1 Inhaler 2 fluticasone (FLOVENT HFA) 110 mcg/actuation inhaler Inhale 2 Puffs as instructed twice daily. (Patient not taking: Reported on 05/25/2023) 1 Inhaler 5 GIANVI, 28, 3-0.02 mg per tablet (Patient not taking: Reported on 05/25/2023) No current facility-administered medications for this visit. PAST SURGICAL HISTORY Procedure Laterality Date NONE FAMILY HISTORY Problem Relation Age of Onset Cancer Other PATERNAL AND MATERNAL SIDES Diabetes Other PATERNAL AND MATERNAL SIDES other (CLOTTING DISORDER) Other PATERNAL SIDE - FACTOR 5 DISORDER Paternal great aunt other (AL) Maternal Grandfather 49 Social History Tobacco Use Smoking status: Never Smokeless tobacco: Never Substance Use Topics Alcohol use: Never Drug use: Never Objective BP 110/72 Pulse 90 Temp 36.7 ?C (98 ?F) (Tympanic) Resp 18 Wt 89.9 kg (198 lb 3.2 oz) LMP 11/04/2021 SpO2 98% Physical Exam Vitals reviewed. Constitutional: Appearance: Normal appearance. HENT: Head: Normocephalic and atraumatic. Right Ear: Tympanic membrane, ear canal and external ear normal. Left Ear: Tympanic membrane, ear canal and external ear normal. Nose: Congestion present. Right Sinus: Maxillary sinus tenderness present. Left Sinus: Maxillary sinus tenderness present. Mouth/Throat: Mouth: Mucous membranes are moist. Pharynx: Oropharynx is clear. Cardiovascular: Rate and Rhythm: Normal rate and regular rhythm. Heart sounds: Normal heart sounds. Pulmonary: Effort: Pulmonary effort is normal. Breath sounds: Normal breath sounds. Musculoskeletal: Cervical back: Neck supple. Skin: General: Skin is warm and dry. Neurological: Mental Status: She is alert. Assessment and Plan ASSESSMENT/PLAN: 1. Bacterial sinusitis - ICD9: 473.9, 041.9, ICD10: J32.9, B96.89 - Will begin treatment with Augmentin 875 mg PO BID for 7 days - Supportive care with plenty of fluids, rest, and analgesia prn. - Follow up in 3-5 days if symptoms persist or worsen. Becca Stearns PA-C [facility] History of Present illness Narrative 05-25-2023 Becca Stearns PA-C - 05/25/2023 11:23 AM EST Note Date & Type Note Facility 05-25-2023 History of Presen t illness Narrative This note was created using NoteWriter. Subjective Shawanda Staley is a 17 year old female. HPI Patient presents with the chief complaint of sinus pressure and congestion for 2 weeks. She has also had a cough. She denies a fever. No vomiting or diarrhea. Her daughter had been sick with bronchiolitis recently. She is not currently breast-feeding but does think she is . Last menstrual cycle was April 23 and she took 2 home test which were positive. No OTC meds used. Review of Systems Constitutional: Negative. HENT: Positive for congestion, rhinorrhea, sinus pressure and sinus pain. Negative for ear pain. Respiratory: Positive for cough. Negative for shortness of breath and wheezing. Cardiovascular: Negative. Gastrointestinal: Negative. Genitourinary: Negative. Musculoskeletal: Negative. All other systems reviewed and are negative. PAST MEDICAL HISTORY Diagnosis Date Acne vulgaris 08/18/2015 Cough variant asthma 09/27/2016 PMH - PAST MEDICAL HISTORY OF vascular rose left ankle Current Outpatient Medications Medication Sig Dispense Refill amoxicillin-clavulanate potassium (AUGMENTIN) 875-125 mg per tablet Take 1 tablet by mouth two times a day for 7 days. 14 tablet 0 sertraline (ZOLOFT) 50 mg tablet Take 1 tablet by mouth once daily. (Patient not taking: Reported on 05/25/2023) 30 tablet 1 albuterol HFA (PROVENTIL HFA, VENTOLIN HFA) 90 mcg/actuation inhaler Inhale 2 Puffs as instructed every 6 hours as needed for wheezing/shortness of breath. Administer using a spacer. (Patient not taking: Reported on 11/05/2021 ) 1 Inhaler 2 fluticasone (FLOVENT HFA) 110 mcg/actuation inhaler Inhale 2 Puffs as instructed twice daily. (Patient not taking: Reported on 05/25/2023) 1 Inhaler 5 GIANVI, 28, 3-0.02 mg per tablet (Patient not taking: Reported on 05/25/2023) No current facility-administered medications for this visit. PAST SURGICAL HISTORY Procedure Laterality Date NONE FAMILY HISTORY Problem Relation Age of Onset Cancer Other PATERNAL & MATERNAL SIDES Diabetes Other PATERNAL & MATERNAL SIDES other (CLOTTING DISORDER) Other PATERNAL SIDE - FACTOR 5 DISORDER Paternal great aunt other (AL) Maternal Grandfather 49 Social History Tobacco Use Smoking status: Never Smokeless tobacco: Never Substance Use Topics Alcohol use: Never Drug use: Never Objective BP 110/72 Pulse 90 Temp 36.7 C (98 F) (Tympanic) Resp 18 Wt 89.9 kg (198 lb 3.2 oz) LMP 11/04/2021 SpO2 98% Physical Exam Vitals reviewed. Constitutional: Appearance: Normal appearance. HENT: Head: Normocephalic and atraumatic. Right Ear: Tympanic membrane, ear canal and external ear normal. Left Ear: Tympanic membrane, ear canal and external ear normal. Nose: Congestion present. Right Sinus: Maxillary sinus tenderness present. Left Sinus: Maxillary sinus tenderness present. Mouth/Throat: Mouth: Mucous membranes are moist. Pharynx: Oropharynx is clear. Cardiovascular: Rate and Rhythm: Normal rate and regular rhythm. Heart sounds: Normal heart sounds. Pulmonary: Effort: Pulmonary effort is normal. Breath sounds: Normal breath sounds. Musculoskeletal: Cervical back: Neck supple. Skin: General: Skin is warm and dry. Neurological: Mental Status: She is alert. Assessment and Plan ASSESSMENT/PLAN: 1. Bacterial sinusitis - ICD9: 473.9, 041.9, ICD10: J32.9, B96.89 - Will begin treatment with Augmentin 875 mg PO BID for 7 days - Supportive care with plenty of fluids, rest, and analgesia prn. - Follow up in 3-5 days if symptoms persist or worsen. Becca Stearns PA-C documented in this encounter [facility] Note 11-17-2021 Telephone Encounter - Divya Echols APRN.SUSANA - 11/17/2021 8:08 AM EDT Note Date & Type Note Facility 11-17-2021 Miscellaneous Notes Attempted to call patient left message to return call. Patient is positive for BV prescribed flagyl bid for 7 days. Negative for GC, chlamydia, yeast, and trich. If patient calls back tell her about antibiotics prescribed and to follow up if the symptoms do not get better with treatment or anything changes. Thank you. talked with patient okay with this care plan. documented in this encounter [facility] History of Present illness Narrative 11-05-2021 Becca Stearns PA-C - 11/05/2021 12:58 PM EDT Note Date & Type Note Facility 11-05-2021 History of Presen t illness Narrative This note was created using AppSheetriter. Subjective Shawanda Staley is a 16 year old female. HPI Presents with a swollen left hand. She had donated plasma yesterday and gradually throughout the day noticed her hand was a little more swollen than on the right. She did have an IV in the left AC. Denies any pain in her AC area. No fever or chills. She has not donated blood previously. No chest pain or shortness of breath. Review of Systems Musculoskeletal: Left hand swelling All other systems reviewed and are negative. PAST MEDICAL HISTORY Diagnosis Date Acne vulgaris 08/18/2015 Cough variant asthma 09/27/2016 PMH - PAST MEDICAL HISTORY OF vascular rose left ankle Current Outpatient Medications Medication Sig Dispense Refill sertraline (ZOLOFT) 50 mg tablet Take 1 tablet by mouth once daily. 30 tablet 1 fluticasone (FLOVENT HFA) 110 mcg/actuation inhaler Inhale 2 Puffs as instructed twice daily. 1 Inhaler 5 GIANVI, 28, 3-0.02 mg per tablet albuterol HFA (PROVENTIL HFA, VENTOLIN HFA) 90 mcg/actuation inhaler Inhale 2 Puffs as instructed every 6 hours as needed for wheezing/shortness of breath. Administer using a spacer. (Patient not taking: Reported on 11/05/2021 ) 1 Inhaler 2 No current facility-administered medications for this visit. PAST SURGICAL HISTORY Procedure Laterality Date NONE FAMILY HISTORY Problem Relation Age of Onset Cancer Other PATERNAL & MATERNAL SIDES Diabetes Other PATERNAL & MATERNAL SIDES other (CLOTTING DISORDER) Other PATERNAL SIDE - FACTOR 5 DISORDER Paternal great aunt other (AL) Maternal Grandfather 49 Social History Tobacco Use Smoking status: Never Smoker Smokeless tobacco: Never Used Substance Use Topics Alcohol use: Never Drug use: Never Objective BP 124/72 Pulse 66 Temp 36.7 C (98.1 F) Resp 16 Wt 77.7 kg (171 lb 3.2 oz) LMP 11/04/2021 SpO2 100% Physical Exam Vitals reviewed. Constitutional: Appearance: Normal appearance. HENT: Head: Normocephalic and atraumatic. Musculoskeletal: Comments: Patient has mild swelling in her fingers of the left hand. Cap refill brisk less than 2 seconds. Radial pulse 2+. Normal distal sensation. The IV site in the left AC shows a small puncture wound with no redness around it. No palpable cord or sign of phlebitis. Skin: General: Skin is warm and dry. Neurological: Mental Status: She is alert. Assessment and Plan ASSESSMENT/PLAN: 1. Swelling of left hand - ICD9: 729.81, ICD10: M79.89 Likely related to recent venipuncture and dependent edema from holding her arm down. No sign of phlebitis. Recommended elevating the hand. Follow up with pcp for worsening or new complaints. Becca Stearns PA-C documented in this encounter [facility] Instructions 11-05-2021 Patient Instructions Note Date & Type Note Facility 11-05-2021 Instructions Becca Stearns PA-C - 11/05/2021 12:26 PM EDT Keep hand elevated, the swelling should resolve in the next few days. If getting significantly worse, or you develop other symptoms be seen again. documented in this encounter [facility] Evaluation note Note Date & Type Note Facility documented in this encounter [facility] Evaluation note Note Date & Type Note Facility documented in this encounter [facility] Summary Purpose Family History No Family History Records Found Advance Directives No Advanced Directives Records Found Additional Source Comments Source Comments (unrecognize d section and content) In the event this informatio n is protected by the Federal Confidentiality of Alcohol and Drug Abuse Patient Records regulations: The Federal rules restrict any use of the information to criminally investigate or prosecute any alcohol or drug abuse patient[facility] the event this information is protected by the Federal Confidentiality of Alcohol and Drug Abuse Patient Records regulations: The Federal rules restrict any use of the information to criminally investigate or prosecute any alcohol or drug abuse patient.[facility] HospitalIn the event this information is protected by the Federal Confidentiality of Alcohol and Drug Abuse Patient Records regulations: The Federal rules restrict any use of the information to criminally investigate or prosecute any alcohol or drug abuse patient.[facility] Reason for Visit (unrecogniz ed section and content) Reason Comments Results Reason Comments sinus and congestion Sinus and congestio n, left ear feels clogged x 2 weeks Care Teams (unrecognized sec tion and content) Long Term Care Administrator Relationship Specialty Start Date End Date Aden Dallas MD [address] [place], [place] [id number] PCP - General Pediatrics 05/08/10 Long Term Care Administrator Relationship Specialty Start Date End Date Aamir Mckeon DO [address] [place], [place] [id number] PCP - General Family Medicine 05/25/23 INFORMATION SOURCE (unrecogn ized section and content) FOR RECORDS PERTAINING TO PATIENTS WHO ARE OR HAVE BEEN ENROLLED IN A CHEMICAL DEPENDENCY/SUBSTANCEABUSE PROGRAM, SOME INFORMATION MAY BE OMITTED. This clinical summary was aggregated from multiple sources. Caution should be exercised in using it in the provision of clinical care. This summary normalizes information from multiple sources, and as a consequence, information in this document may materially change the coding, format and clinical context of patient data. In addition, data may be omitted in some cases. CLINICAL DECISIONS SHOULD BE BASED ON THE PRIMARY CLINICAL RECORDS. [facility] Keep [employer] Certified [facility]. provides no warranty or guarantee of the accuracy or completeness of information in this document.
[2023-08-04 14:34] LABS: HIV - WCH Non-Reactive (Nonreactive); Hepatitis B Surface Antigen Non-Reactive (Nonreactive); Hepatitis C Antibody Non-Reactive (Nonreactive); Rubella IgG Reactive (Nonreactive); Syphilis Antibodies Non-reactive
== END | disposition home or self-care (01) ==
LOC: LAB 13:09
PROVIDERS: Advanced Practice Midwife; Referring Provider Registered Nurse; Visit Provider Registered Nurse
DX: Z34.90 Encounter for supervision of normal pregnancy, unspecified, unspecified trimester (principal)
CPT/HCPCS: 36415; 83036; 85025; 86703; 86762; 86780; 86803; 86850; 86900; 86901; 87340

== ENCOUNTER 2023-08-18 07:49 | Outpatient (RCR) | payer OTHER, SELFPAY ==
[2023-08-18 00:32] VITALS: BP 116/69; PULSE 77
--- NOTE | 2023-08-23 09:05 | BH.SGPN.GN ---
Behaviors/Verbalizations/Mental Status: [] Eye contact is good. Motor activity is appropriate. Appearance is casual. Speech is Appropriate. Mood is anxious. Affect is congruent. Thoughts are linear and logical. No evidence of psychosis. Reviewed daily check in sheet and no reports of suicidal ideations or intent. Client Response/Progress/Benefit: [] Pt was an active participant in group discussion. Attentive. Shared with the group that she missed last week due to illness however is feeling better. Pt reports that her fiance also was ill so they spent a great deal of time together. Overall this proved to be beneficial and they worked on assertive communication and their relationship overall. Communicating more effectively and getting along better . Utilized positive reinforcement. Overall her mood has improved which has also helped her relationship. Reports that her medication has been effective for her erratic mood however her anxiety has increased. She gave example of obsessive thoughts and hermelinda related to belief that she left a window open. Fearful someone was going to break-in however too scared to go downstairs to lock the window. She requests to speak with psychiatry tomorrow. Progress noted per pt report. Will continue in IOP to prevent decompensation, stabilize mood, and improve functioning. Narrative Note: []
--- NOTE | 2023-08-23 11:10 | BH.SGPN.GN ---
Behaviors/Verbalizations/Mental Status: []Pt alert and oriented, neatly dressed and groomed. Eye contact good. Motor activity appropriate. Speech within normal limits. Affect congruent, mood euthymic. Thoughts linear, logical, no signs of hallucinations or delusions. Client Response/Progress/Benefit: [] Pt responded well to session, contributing to discussion, and engaged during the activity. Attentive during discussion on the quote. Group identified the benefits of change and worked with the group to identify barriers. Pt?s barriers to change included: fear of failure and fear of repercussions. Pt participated along with group in activity where they identified and discussed the emotions related to change. Pt provided examples of how pt has benefitted from change even though pt is not fond of change. Benefited from increased awareness and understanding of emotions, benefits, and barriers related to change. Pt will continue IOP tx to promote mood stability, increase emotional regulation skills, and improve self-compassion. Narrative Note: []
--- NOTE | 2023-08-23 11:15 | BH.SGPN.GN ---
Behaviors/Verbalizations/Mental Status: [] Eye contact is good. Motor activity is disheveled. Appearance is casual. Speech is Appropriate. Mood is anxious. Affect is congruent. Thoughts are linear and logical. No evidence of psychosis. Client Response/Progress/Benefit: [] Pt responded well to session, attentive. Did well to engage in and process activity. Pt worked with group to relate the strategies used to overcome barriers in the activity to managing change in own life. Pt identified wanting to work on having more motivation to get stuff down . Pt identified that she is currently between preparation and action phase. Benefited from increased awareness of changes desired and current stage of change. Will continue in IOP to prevent decompensation, stablize mood, and increase healthy coping skills. Narrative Note: []
--- NOTE | 2023-08-24 09:05 | BH.SGPN.GN ---
Behaviors/Verbalizations/Mental Status: [Patient was alert and oriented, appropriately dressed and groomed. Eye contact was good, motor activity normal, speech within normal limits. Affect congruent, mood content. Thoughts linear, logical, no signs of hallucinations or delusions. Reviewed Patients symptom tracker and the patient reports depressed mood, anxiety/panic attacks, agitation/irritability/anger, self-harm urges, and thoughts/risk of suicide within normal limits.] Client Response/Progress/Benefit: [Patient was engaged and open to the discussion. Patient reported her mood to be ?Cheerful?. Patients first win is that her feabbw-jw-apw called her this morning and told her that her fianc? was talking positively about the changes the patient has made to her and wanted to let the patient know. Patient stated that her second win and stressor are related to each other. 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 Patient is excited for the opportunity but is nervous of how well she?ll do. Patient was interactive and respectful with other group members about their mental wins and stressors. Patient benefited from the discussion by listening to feedback and giving input on her peer?s stressors and mental health wins. Patient will continue with IOP treatment to help develop healthy skills, promote mood stability, and improve distress tolerance. ] Narrative Note: []
--- NOTE | 2023-08-24 10:10 | BH.SGPN.GN ---
Behaviors/Verbalizations/Mental Status: []Pt alert and oriented, neatly dressed and groomed. Eye contact good. Motor activity appropriate. Speech within normal limits. Affect congruent, mood euthymic. Thoughts linear, logical, no signs of hallucinations or delusions. Client Response/Progress/Benefit: [] Pt was an active?participant in small group discussion. Pt?s group worked together to identify benefits of healthy relationships which included insight, accountability, and guidance. Group identified factors that lead to unhealthy relationships. Pt?s personal factors included trauma, lack of resources, and not seeing healthy relationships in her upbringing. Actively participated in group experiential activity and expressed ideas to group. Benefited from increased insight and awareness of benefits of healthy relationships and factors that contribute to unhealthy relationships. Will continue IOP tx to promote mood stability, increase self-compassion, and further improve emotional regulation skills. ?? Narrative Note: []
--- NOTE | 2023-08-24 12:06 | PCM.BH.PN ---
Progress Note Progress Note: History of Present Illness/Interim History: The patient is a 18-year-old female who is seen in follow-up at the [facility] behavioral health IOP. She has a history of depression, anxiety and was last seen 3 weeks ago and at that time her Latuda was increased. The patient feels that the increased dose is working well for her and she is tolerating the medication well. She noticed that she has much less anger and irritability now and less symptoms of hypomania. She feels however that she wrist remains significantly anxious. She feels she is learning valuable skills in the IOP and is trying to learn to use them in her daily life. She is now sleeping 8 hours a night. She has some low energy but believes that she is more motivated now since increasing the dose of the medication. She remains tired during the day. She had COVID-19 last week but has pretty much recovered from this now. Current Psychiatric Medications: [] Latuda 40 mg p.o. daily with food Mental Status Examination: [] Patient is a 18-year-old female who appears normal for stated age and is casually dressed and groomed with good hygiene. She has no psychomotor agitation or retardation. Eye contact is good and speech is normal rate and rhythm and fluent with no pressure. Mood is anxious. Affect is full and normal. Thought process is goal-directed and organized. Thought content: There is no evidence of passive thoughts of , suicidal ideation, homicidal ideation, plan for suicide, hallucinations or delusions. Reality testing is intact. Judgment is intact. Insight is fair but improving. Impulsivity is moderate. Diagnoses: [] 1. Bipolar 2 disorder 2. Generalized anxiety disorder 3. Panic disorder 4. History of PTSD 5. Primary support issues Plan: [] The patient will continue the IOP in behavioral health at [facility] as the structure, support, education and group therapy will hopefully prevent worsening of the patient's symptoms which could require hospitalization. She felt safe during the interview and if it anytime she does not feel safe she will let us know or go to the emergency room. Prescription is sent in for the Latuda 60 mg p.o. daily with food. The patient will continue to follow-up with her outpatient providers and I will see the patient in follow-up in 2 weeks.
--- NOTE | 2023-08-24 15:20 | BH.MDN_ITS ---
Multi-Disciplinary Note Note 45-min Individual: Time Started:: 11:05 Date: 08/24/23 Purpose of session/treatment goals addressed:: Purpose of session was to address goals 1 and 2 from MTP. Eye Contact:: Good Motor Activity:: Appropriate Appearance:: Neat Speech:: Appropriate Affect:: Full Thoughts:: Linear, Logical and No evidence of hallucinations/delusions noted Staff Interventions:: CBT techniques, mindfulness skills (grounding), strengths perspective, goal setting, taught coping skills (affirmations) and other (maintenance) Client Response:: Client reported the last 2 weeks have been very good because she has noticed improved mood and improved relationship. Client shared she had difficult conversations with her fianc? about her expectations and understanding his expectations better. Client verbalized the expectation of him being more helpful around the house instead of her being responsible for everything plus working. Client stated her fianc? was receptive to making changes and being more helpful. Client stated she has been doing better with getting chores done during the weekdays and he is starting to be more helpful over the weekends. Client stated she thinks being home the last 2 weeks because of having COVID has been in a way helpful for her and her fianc?. Client reported in the last 2-1/2 weeks her and her fianc?e have not had any big blowups together which is the first time in a long time. Client stated typically in the past they were able to get along for 2 to 3 days before blow up and this has been the longest they have gone in a while without fighting. Client reported she did express her concerns about him becoming aggressive towards objects during their fights and does not want to expose their daughter to that. Client stated they have their safe word that they can use when one of them gets escalated during an argument but as of today they have not had to use it yet. Client shared having a break from intensifying has shown her how and significantly their conflict can impact her stress level because she she realizes currently her stress is very mild compared to when they are having constant conflict that gets escalated and intense. Client worked with therapist to identify strategies that she can utilize to help maintain the current progress she is noticing which includes breaking down tasks throughout the week around the house, not napping every time her daughter naps so that she can get more done, and taking time each week to sit down and communicate with her fianc? about expectations for the week. Client stated she would like to work on improving her ability to be independent. Client explains she feels like it is a challenge to go to the grocery stores or other places in public without having somebody with her due to her anxiety. Client states she also has a hard time going to the grocery store or other places when she has her daughter because she has a lot of intrusive thoughts and has a constant need to [place] due to her anxiety. Therapist provided psychoeducation about anxiety reduction skills in the moment and the importance of not avoiding doing the anxious thing. Client agreeable in the next week to take her daughter to the grocery store with her and while she is there utilize her breathing techniques to help her get through the wave of anxiety. Risks/Concerns:: Denies suicidal ideation, plan, or intention. Future oriented. Progress Toward Goals/Plan:: Progress noted with client reporting improved mood and decreased conflict with her fianc? in the last 2 weeks. Client is doing a good job with applying the skills discussed in individual and group sessions like talking to her fianc? about expectations around the house and setting boundaries with him. Client does report improved mood and improved f unctioning with getting things done around the house the last 2 weeks. Client does note her anxiety is hindering her ability to function when she goes to grocery stores due to her severe anxiety about worry somebody is going to hurt her daughter. Plan is for client to start to slowly work on exposing self to anxiety provoking situations while using calming skills in the moment. Client to continue IOP to promote use of healthy coping skills, challenge distortions, and prevent decompensation. Time Stopped:: 11:45
--- NOTE | 2023-08-25 09:05 | BH.SGPN.GN ---
Behaviors/Verbalizations/Mental Status: [] Eye contact is good. Motor activity is appropriate. Appearance is disheveled. Speech is Appropriate. Mood is anxious. Affect is congruent. Thoughts are linear and logical. No evidence of psychosis. Reviewed daily check in sheet and no reports of suicidal ideations or intent. Client Response/Progress/Benefit: [] Pt was an active participant in group discussion. Attentive. Daily symptom tracker notes 08/22 for anxiety. Mental health win was I got everything done yesterday . Increased anxiety in the past week which resulted in panic attack and intrusive thoughts yesterday. Its not fun my anxiety got a hold of me . Reports distress however did utilize skills which helped minimize the impact of the anxiety. I realized that I can do it Emotion for today is hopeful . Benefited from group support, encouragement, and feedback. Will continue in IOP to prevent decompensation, increase healthy skills, and stabilize mood. Narrative Note: []
--- NOTE | 2023-08-25 11:15 | BH.SGPN.GN ---
Behaviors/Verbalizations/Mental Status: []Pt alert and oriented, casually dressed and groomed. Eye contact good. Motor activity appropriate. Speech within normal limits. Affect congruent, mood anxious and euthymic. Thoughts linear, logical, no signs of hallucinations or delusions. Client Response/Progress/Benefit: [] Pt receptive to session AEB contributing to small group discussion, as well as listening attentively to others, and taking notes. Worked with group to brainstorm the positive and negative aspects of stress on physical and mental health. Group did well to identify the benefits of stress as well as the impact of distress on performance, relationships, and mental health. Pt identified their personal top stressors as: finances/debt, cleaning and keeping up with her housework, and her relationship with her fianc?. Pt seemed to benefit from increased awareness of current stressors and impact stress has on mental health. Recommended to continue IOP tx to promote use of healthy coping skills, improve daily functioning, and increase distress tolerance skills. Narrative Note: []
--- NOTE | 2023-08-26 11:10 | BH.SGPN.GN ---
Behaviors/Verbalizations/Mental Status: []Eye contact is fair. Motor activity is appropriate. Appearance is casual. Speech is Appropriate. Mood is euthymic. Affect is congruent. Thoughts are linear and logical. No evidence of psychosis. Client Response/Progress/Benefit: []Pt was an engaged articipant in group discussions and experiential activity. Attentive during psychoeducation on the 4 A's (Avoid, adapt, alter, accept) of coping with stress. Shared that she would benefit most from working on altering her daily routine and altering her response. Was able to identify the connection between the experiential activity and utilization of stress management skills. Benefited from increased awareness of stress management strategies. Will continue in IOP to continue working on distress tolerance, continue working on boundaries, and prevent decompensation.
--- NOTE | 2023-08-30 10:10 | BH.SGPN.GN ---
Behaviors/Verbalizations/Mental Status: []Pt alert and oriented, neatly dressed and groomed. Eye contact good. Motor activity appropriate. Speech within normal limits. Affect congruent, mood content. Thoughts linear, logical, no signs of hallucinations or delusions. Client Response/Progress/Benefit: [] Pt active participant AEB pt providing input throughout group discussion. Pt attentive during psychoeducation about defense mechanisms. Showed engagement during small group discussions and helped group identify which defense mechanisms were maladaptive, adaptive, or ?somewhere in the gabriel.? Pt started to work with group on identifying how each defense mechanism can impact mental health and gave examples. Pt gave personal example of using rationalization and projection recently and how this can keep pt stuck. Seemed to benefit from gaining awareness about the different defense mechanisms. Pt to continue IOP tx to promote mood stability, increase emotional regulation skills, and further improve daily functioning. Narrative Note: []
--- NOTE | 2023-08-30 10:10 | BH.SGPN.GN ---
Behaviors/Verbalizations/Mental Status: []Pt alert and oriented, neatly dressed and groomed. Eye contact good. Motor activity appropriate. Speech within normal limits. Affect congruent, mood euthymic. Thoughts linear, logical, no signs of hallucinations or delusions. Client Response/Progress/Benefit: [] Pt active participant AEB pt providing input throughout group discussion. Pt attentive during psychoeducation about defense mechanisms. Showed engagement during small group discussions and helped group identify which defense mechanisms were maladaptive, adaptive, or ?somewhere in the gabriel.? Pt started to work with group on identifying how each defense mechanism can impact mental health and gave examples. Pt gave personal examples of how using projection and rationalization can keep pt stuck in unhealthy cycles. ?Seemed to benefit from gaining awareness about the different defense mechanisms. Pt to continue IOP tx to improve mood stability, increase emotional regulation skills, and further improve daily functioning. ? Narrative Note: []
--- NOTE | 2023-08-30 10:29 | BH.MDN ---
Multi-Disciplinary Note Note 30-min Individual: Time Started:: 09:14 Date: 08/30/23 Purpose of session/treatment goals addressed:: Purpose of session was to address goals 1 and 2 from MTP. Eye Contact:: Good Motor Activity:: Appropriate Appearance:: Casual Speech:: Appropriate Mood:: Euthymic and Other (Tired) Affect:: Congruent Thoughts:: Linear, Logical and No evidence of hallucinations/delusions noted Staff Interventions:: CBT techniques, mindfulness skills, strengths perspective, goal setting and taught coping skills Client Response:: Client stated she has been very busy over the last week which she stated has been okay but she has not had a lot of time to focus on herself. Client reported her and her fianc? still are doing better with communication and they have not had a blow out conflict in 3 weeks. Client stated her biggest struggle right now is feeling low energy and tired even when she gets good sleep. Client stated she is trying to give herself some compassion because she recognizes being can impact her energy level. Client stated she just is being observant about her mood because last during this trimester she experiences severe depressed episode. Client stated at that time though she was lying in bed for 16 hours and could not get anything accomplished where currently she is feeling low energy but is able to do more around the house and be more productive. Client stated her mood is continuing to improve with decreased agitation and not feeling depressed. Client stated her anxiety is still there but she is noticing the last week ability to move on from her anxious thoughts quicker than she could previously. Client stated she did go to the grocery store last week with her daughter and found herself to be less stressed when she used her breathing techniques. Client stated she still feels a sense of urgency to get in and out of stores quickly because she will have intrusive thoughts like what if somebody cannot process . Therapist encouraged client next time she has an intrusive thought to use the technique if that is a thought not affect. Therapist also encouraged client next grocery store to go on a day in which she does not have anything to do afterwards so that she can purposely make her self take her time by using breathing and mindfulness tools in the moment. Client stated her motivation level is okay stated having low energy has slightly impacted her ability to feel motivated. Therapist and client discussed strategies to help decrease some the stressors that she is experiencing like putting too much on her plate for 1 day and discussed strategies on how to make grocery shopping and meal planning easier throughout her week. Risks/Concerns:: Denies suicide ideation, intention, and plan. Future oriented. Progress Toward Goals/Plan:: Progress noted with client continuing to report improved mood, decreased conflict with her fianc?, and improved communication with supports. Client continues to note anxious symptoms that impacts her when she has to go grocery shopping. Client starting to work on exposing herself to some anxiety provoking situations to help her decrease avoidance. Client was provided with referral to individual counseling provider in the area and her homework is to contact and schedule this week. Client has scheduled an appointment with Dr. Rausch for psychiatry with her appointment being in October. Client has contacted [facility] to get established with primary care doctor. Plan is for client to continue IOP to complete discharge and aftercare plans, decrease avoidance of anxious symptoms, and prevent decompensation. Time Stopped:: 09:50
--- NOTE | 2023-08-30 11:10 | BH.SGPN.GN ---
Behaviors/Verbalizations/Mental Status: []Pt alert and oriented, casually dressed and groomed. Eye contact good. Motor activity appropriate. Speech within normal limits. Affect congruent, mood content. Thoughts linear, logical, no signs of hallucinations or delusions. Client Response/Progress/Benefit: [] Pt responded well to session, participating in activity and small group discussion. Group reviewed the rest of the defense mechanisms and discussed how these are adaptive, maladaptive, or somewhere in the gabriel. Pt participated in the experiential activity which encouraged pts to draw a castle that portrayed their different defense mechanisms. Pt's defense mechanisms included self-discipline, suppression, rationalization, humor, and projection. Pt shared she has reduced her use of humor as a defense mechanism as this has caused a lot more issues in pt?s life. Pt reports wanting to work on reducing how much she rationalizes. Pt appeared to benefit from gaining insight to the different defense mechanisms and learning coping skills. Pt will continue IOP tx to promote mood stability, increase use of emotional regulation skills, and improve self-compassion. Narrative Note: []
--- NOTE | 2023-09-01 09:05 | BH.SGPN.GN ---
Behaviors/Verbalizations/Mental Status: [] Eye contact is good. Motor activity is appropriate. Appearance is casual. Speech is Appropriate. Mood is anxious. Affect is congruent. Thoughts are linear and logical. No evidence of psychosis. Reviewed daily check in sheet and no reports of suicidal ideations or intent. Client Response/Progress/Benefit: [] Pt was an active participant in group discussions. Attentive. Provided appropriate feedback. Daily symptom tracker notes 07/22 for anxiety. Emotion for today is confident . Continues to struggle with anxiety mainly related to the health and safety of her child. Notes ups and downs as certain triggers can exacerbate her anxiety and lead to panic. Insight that she is improving her skills which has decreased the impact anxiety has had on her daily functioning. Vented recent stressors and their impact on her mental health. Overall progress noted per pt report. Believes her anxiety has decreased from last week and that her medications have been effective. She shared her struggles with Bipolar and mood swings in the recent past and overall feeling more optimistic about her future. Progress noted. Benefited from group support, encouragement, and feedback. Will continue in IOP to maintain gains, prevent decompensation, increase healthy coping, and stabilize mood. Narrative Note: []
--- NOTE | 2023-09-01 10:05 | BH.SGPN.GN ---
Behaviors/Verbalizations/Mental Status: []Pt alert and oriented, neatly dressed and groomed. Eye contact good. Motor activity appropriate. Speech within normal limits. Affect congruent, mood euthymic. Thoughts linear, logical, no signs of hallucinations or delusions. Client Response/Progress/Benefit: [] Pt was engaged and open to the discussion and appeared to respond well to the group. Pt used active listening and gave feedback during group discussion. Group discussed what contributes to a person?s perspective and how perspective can positively or negative impact mental health treatment. Pt shared their perspective today is hopeful and realistic which pt shared is giving her motivation to accomplish things at home and be more focused. Pt appeared to benefit from increasing awareness of different perspectives and how they can affect mental health. Pt will continue IOP treatment to promote mood stability, increase self-care, and further improve emotional regulation skills. ??? Narrative Note: []
--- NOTE | 2023-09-01 11:15 | BH.SGPN.GN ---
Behaviors/Verbalizations/Mental Status: []Pt alert and oriented, casually dressed and groomed. Eye contact good. Motor activity appropriate. Speech within normal limits. Affect congruent, mood euthymic. Thoughts linear, logical, no signs of hallucinations or delusions. Client Response/Progress/Benefit: []Pt was attentive and contributed to group discussion. Pt worked with group to identify strategies that can help with challenging negative perspective. Pt completed strengths exploration worksheet, identifying curiosity, love, humor, adventurousness, and empathy as personal strengths. Pt able to acknowledge how these strengths are helping pt and can continue to help pt in mental health journey. Pt identified wanting to work on reminding herself that A thought is a thought, not a fact as a means of perspective challenging. Benefited from identifying personal strengths and strategies for enhancing use of identified strengths. Pt will continue IOP tx to promote mood stability, increase consistent application of healthy coping skills, and prevent decompensation. Narrative Note: []
--- NOTE | 2023-09-06 09:00 | BH.SGPN.GN ---
Behaviors/Verbalizations/Mental Status: [] Pt alert and oriented, neatly dressed and groomed. Eye contact good. Motor activity appropriate. Speech within normal limits. Affect congruent, mood euthymic. Thoughts linear, logical, no signs of hallucinations or delusions. Reviewed pt?s symptom tracker, no risk for suicidal ideation, plan, or intent 09/06/23 Client Response/Progress/Benefit: []Pt responded well to session, attentive and engaged. Pt reports feeling pleasant this morning as it is pt's last week and pt acknowledged that she has made a lot of progress. Pt shared she now looks forward to work instead of dreading work, she is consistently using opposite action, and she has been much better with regulating her anger and other emotions. Pt's stressor today is that there is a house check by her landlord this week, but pt is trying to use positive self-talk to combat anxious thinking. Pt appeared to benefit from gaining group support and processing her stressors. Pt will continue IOP tx to promote gains, establish aftercare, and further increase self-confidence. Narrative Note: []
--- NOTE | 2023-09-07 09:05 | BH.SGPN.GN ---
Behaviors/Verbalizations/Mental Status: [Patient was alert and oriented, appropriately dressed and groomed. Eye contact was good, motor activity normal, speech within normal limits. Affect congruent, mood content. Thoughts linear, logical, no signs of hallucinations or delusions. Reviewed Patients symptom tracker and the patient reports depressed mood, anxiety/panic attacks, agitation/irritability/anger, self-harm urges, and thoughts/risk of suicide within normal limits.] Client Response/Progress/Benefit: [ Patient was engaged and open to the discussion. Patient reported her mood to be ?Blissful?. Patient first win is that she has gotten her entire house clean because she stated that every year her landlords inspect the houses. She stated that she went as far as getting on her hands and knees and scrubbing the corners. Patients second win is that she believes her motivation is better and she is using her skills. She shared that using opposite action has been the most helpful. Patients stressor is money and that the landlords are coming because she stated they are very picky and ?clean freaks?. Patient was interactive and respectful with other group members about their mental wins and stressors. Patient benefited from the discussion by listening to feedback and giving input on her peer?s stressors and mental health wins. Patient will continue with IOP treatment to help develop healthy skills, promote mood stability, and improve distress tolerance. ] Narrative Note: []
--- NOTE | 2023-09-07 11:10 | BH.SGPN.GN ---
Behaviors/Verbalizations/Mental Status: []Pt alert and oriented, neatly dressed and groomed. Eye contact good. Motor activity appropriate. Speech within normal limits. Affect congruent, mood euthymic. Thoughts linear, logical, no signs of hallucinations or delusions. Client Response/Progress/Benefit: [] ?Pt responded well to session, engaged in the experiential activity and attentive throughout group processing. Pt reported fear of failure has kept Pt from standing up for herself and being the mom she wants to be. Pt completed fear of failure worksheet and was able to identify thoughts and behaviors that reinforce personal fear of failure including self-doubt, past failures, and negative/distorted thought patterns. Pt participated in group discussion regarding strategies to overcome fear of failure. Identified wanting to work on engaging in exposure therapy ?at my own pace.? Appeared to benefit from increased knowledge of strategies to combat fear of failure and gaining self-awareness. Pt will continue IOP tx to promote mood stability, establish aftercare, and improve self-compassion. Narrative Note: []
--- NOTE | 2023-09-07 11:28 | PCM.BH.PN ---
Progress Note Progress Note: History of Present Illness/Interim History: The patient is a 18-year-old female with a history of bipolar 2 disorder, anxiety and panic attacks who is seen in follow-up at the [facility]. I last saw the patient 2 weeks ago and at that time her Latuda was increased to 60 mg p.o. daily. The patient states that she never increased the dose because she started feeling better and she was afraid she would get side effects for few days after increasing the dose like she did the first time she increased her dose. She states that she is doing well overall and feels she is much better. She has been keeping better regular sleep-wake hours and this has improved her sleep and feeling of restfulness the next day. She has much less anger and irritability now and denies any depression or hypomanic symptoms. She still has some anxiety but is much less than before. She feels she is learning valuable skills in the IOP. Her motivation is improving but at times she still has trouble motivating herself. She is looking forward to going back to work and feels doing the IOP has also helped her relationship with her fianc?. She denies any passive thoughts of , suicidal ideation, plan for suicide, thoughts of self-harm, homicidal ideation, hallucinations, delusions. Current Psychiatric Medications: [] Latuda 40 mg p.o. daily with food Mental Status Examination: [] The patient is a 18-year-old female who appears normal for stated age and is casually dressed and groomed with good hygiene. She is ambulatory with a normal gait and has no psychomotor agitation or retardation. She is cooperative and pleasant during the interview. Eye contact is good and speech is normal rate and rhythm and fluent with no pressure. Mood is euthymic. Affect is full and normal. Thought process is goal-directed and organized. Thought content: Patient is looking forward to returning to work. There is no evidence of passive thoughts of , suicidal ideation, homicidal ideation, hallucinations or delusions. Reality testing is intact. Judgment is intact. Insight is good. Impulsivity is low. Diagnoses: [] 1. Bipolar 2 disorder 2. Generalized anxiety disorder 3. Panic disorder 4. History of PTSD 5. Primary support issues Plan: [] The patient will discharge soon from the IOP program as she has vastly improved. She felt safe during the interview and if it anytime she does not feel safe she will let us know or go to the emergency room. No medication changes were made today and a refill was sent in for her Latuda 40 mg p.o. daily with food; #30 with 1 refill. She will continue to follow-up with her outpatient providers and I will see her in follow-up while she is in the IOP.
--- NOTE | 2023-09-09 09:00 | BH.SGPN.GN ---
Behaviors/Verbalizations/Mental Status: [Patient was alert and oriented, appropriately dressed and groomed. Eye contact was good, motor activity normal, speech within normal limits. Affect congruent, mood content. Thoughts linear, logical, no signs of hallucinations or delusions. Reviewed Patients symptom tracker and the patient reports depressed mood, anxiety/panic attacks, agitation/irritability/anger, self-harm urges, and thoughts/risk of suicide within normal limits.] Client Response/Progress/Benefit: [ Patient was engaged and open to the discussion. Patient reported her mood to be ?excited and nervous?. Patients last day in the program is today and stated this could be considered a win for her. Patient shared that she is feeling confident but is still a little nervous about it. Patient was interactive and respectful with other group members about their mental wins and stressors. Patient benefited from the discussion by listening to feedback and giving input on her peer?s stressors and mental health wins. Patient will graduate IOP treatment because she has successfully built on developing healthy skills, increased mood stability, and improved distress tolerance.] Narrative Note: []
--- NOTE | 2023-09-09 10:10 | BH.SGPN.GN ---
Behaviors/Verbalizations/Mental Status: []Client alert and oriented, casually dressed and groomed. Eye contact good. Motor activity appropriate. Speech within normal limits. Affect congruent, mood euthymic. Thoughts linear, logical, no signs of hallucinations or delusions. Client Response/Progress/Benefit: []Client receptive to session AEB providing input throughout, listening attentively to others, and taking notes. Attentive throughout psychoeducation on the cognitive triangle and maintenance cycles. Engaged in group discussion reviewing the impact of daily activities and behaviors in either reinforcing unhealthy maintenance cycles and depression or assisting in reducing symptoms (?down? vs ?up? activities). Client identified common ?down? activities they engage in as: laying on the couch, napping, and listening to sad music. Common ?Up? activities client identified included: dancing with daughter, reading, and doing makeup/hair. Appeared to benefit from increased awareness of current behaviors and impact these have on mental health. Recommended to continue IOP tx to increase heatlhy coping, challenge distortions, and prevent decompensation.
--- NOTE | 2023-09-09 11:15 | BH.SGPN.GN ---
Behaviors/Verbalizations/Mental Status: [] Eye contact is good. Motor activity is appropriate. Appearance is casual. Speech is Appropriate. Mood is euthymic. Affect is congruent. Thoughts are linear and logical. No evidence of psychosis. Client Response/Progress/Benefit: [] Pt responded well to session, attentive and engaged in group discussions and activity. Group discussed values and the benefits that knowing one's values can have on one's mental health. Pt explored own values and identified personal top values. Pt stated a personally important value is family relationships. Client set a goal to improve engagement in this value. Goal identified as scheduling regular quality time together throughout the week. Pt appeared to benefit from exploring values and creating a weekly goal. Will continue in IOP to reinforce healthy coping skills, improve confidence, and prevent decompensation. Narrative Note: []
--- NOTE | 2023-09-09 14:00 | BH.DS ---
Discharge Summary Demographics Date of Admission:: 07/19/23 Discharge Date: 09/09/23 Presenting Problems at Admission:: The patient is a 18-year-old engaged female with a long history of depression with recent depression, anxiety and erratic mood who is 7 months and currently 12 weeks with a second . She was referred by a friend. She complains of erratic mood and irritability. She endorses being irritable and having anger outburst at times that her fianc?. She endorses sadness, hopelessness, worthlessness, guilt and anhedonia which is lessening lately. Discharge Diagnoses:: 1. Bipolar 2 disorder F31.81 2. Generalized anxiety disorder 3. Panic disorder 4. History of PTSD Reason for Discharge:: Pt has made significant treatment progress since starting IOP, reports improved daily functioning, and no longer meets criteria for IOP level of care. Treatment Progress During Treatment & Response: Progress noted AEB DSM 5 cross-cutting measure Discharge Handout
== END 2023-09-09 12:00 | disposition home or self-care (01) ==
LOC: BHIOP 07:49
PROVIDERS: Referring Provider Psychiatry & Neurology Psychiatry; Visit Provider Psychiatry & Neurology Psychiatry
DX: F31.81 Bipolar II disorder (principal); F41.1 Generalized anxiety disorder; F41.0 Panic disorder [episodic paroxysmal anxiety]; F43.10 Post-traumatic stress disorder, unspecified; Z79.899 Other long term (current) drug therapy
CPT/HCPCS: S9480; 90832; 90834; 90853

== ENCOUNTER → 2023-11-07 | Outpatient (CLI) | payer OTHER, SELFPAY ==
[2023-11-07 16:26] LABS: Absolute Lymphocyte Count 1.46 X10^3/uL (0.83-4.51); Absolute Neutrophil Count 6.9 X10^3/uL (2.0-7.7); Basophil# 0.04 X10^3/uL; Basophil% 0.4 % (0-1); Eosinophils% 1.1 % (0-5); Hematocrit 33.9 % (37-47); Hemoglobin 10.9 g/dL (12.0-15.0); Lymphocyte # 1.46 X10^3/ul (0.83-4.51); Lymphocyte % 16.3 % (19-41); Mean Corp Hgb Conc 32.2 g/dL (32-36); Mean Corpuscular Hgb 27.9 pg (27.0-32.0); Mean Corpuscular Volume 86.7 fL (81-99); Mean Platelet Vol. 10.8 fl (6.2-12.0); Monocyte# 0.43 X10^3/uL; Monocyte% 4.8 % (0-10); NRBC Flagged by Analyzer 0 % (0-5); Neutrophil # 6.85 X10^3/uL (2.7-7.7); Neutrophil % 76.6 % (47-70); Platelet Count 234 K/mm3 (150-450); RBC Distribution Width CV 13.9 % (11.6-14.6); RBC Distribution Width SD 43.8 fl (35.1-43.9); Red Blood Count 3.91 M/mm3 (4.2-5.4)
[2023-11-07 16:51] LABS: Glucose Challenge Gest 1H 50g 155 mg/dL (70-140)
[2023-11-07 18:49] LABS: HIV - WCH Non-Reactive (Nonreactive); Syphilis Antibodies Non-reactive
== END | disposition home or self-care (01) ==
LOC: LAB 16:10
PROVIDERS: Referring Provider Registered Nurse; Visit Provider Registered Nurse
DX: Z34.90 Encounter for supervision of normal pregnancy, unspecified, unspecified trimester (principal)
CPT/HCPCS: 36415; 82950; 85025; 86703; 86780; 86850; 86900; 86901

== ENCOUNTER → 2023-11-23 | Outpatient (CLI) | payer OTHER, SELFPAY ==
[2023-11-23 11:20] LABS: Glucose GTT-Gestation. Fasting 84 mg/dL (<105)
[2023-11-23 12:37] LABS: Glucose GTT-Gestational 1 Hr 154 mg/dL (<190)
[2023-11-23 13:49] LABS: Glucose GTT-Gestational 2 Hr 133 mg/dL (<165)
[2023-11-23 13:59] LABS: Glucose GTT-Gestational 3 Hr 116 L (<145)
== END | disposition home or self-care (01) ==
LOC: LAB 09:45
PROVIDERS: Referring Provider Nurse Practitioner Women's Health; Visit Provider Nurse Practitioner Women's Health
DX: Z13.1 Encounter for screening for diabetes mellitus (principal)
CPT/HCPCS: 36415; 82951; 82952

== ENCOUNTER → 2023-12-20 | Outpatient (CLI) | payer OTHER, SELFPAY | END | disposition home or self-care (01) | LOC: LABSPEC 16:55 | PROVIDERS: Referring Provider Nurse Practitioner Women's Health; Visit Provider Nurse Practitioner Women's Health | DX: N89.8 Other specified noninflammatory disorders of vagina (principal) | CPT/HCPCS: 87070; 87205 ==

== ENCOUNTER → 2024-01-05 | Outpatient (CLI) | payer OTHER, SELFPAY | END | disposition home or self-care (01) | LOC: LABSPEC 17:02 | PROVIDERS: Referring Provider Obstetrics & Gynecology; Visit Provider Obstetrics & Gynecology | DX: O09.93 Supervision of high risk pregnancy, unspecified, third trimester (principal); Z3A.00 Weeks of gestation of pregnancy not specified | CPT/HCPCS: 87081 ==

== ENCOUNTER 2024-01-18 22:50 | Outpatient (CLI) | payer OTHER, SELFPAY ==
[2024-01-18 22:58] VITALS: BMI 38.5
[2024-01-18 23:42] LABS: Hematocrit 34.4 % (37-47); Hemoglobin 11.1 g/dL (12.0-15.0); Mean Corp Hgb Conc 32.3 g/dL (32-36); Mean Corpuscular Hgb 26.9 pg (27.0-32.0); Mean Corpuscular Volume 83.3 fL (81-99); Mean Platelet Vol. 12.1 fl (6.2-12.0); Platelet Count 177 K/mm3 (150-450); RBC Distribution Width CV 14.7 % (11.6-14.6); RBC Distribution Width SD 44.4 fl (35.1-43.9); Red Blood Count 4.13 M/mm3 (4.2-5.4); White Blood Count 8.5 K/mm3 (4.4-11.0)
[2024-01-18 23:45] VITALS: BP 137/83; PULSE 86; O2SAT 98
[2024-01-18 23:50] VITALS: PULSE 91; O2SAT 98
[2024-01-18 23:55] VITALS: PULSE 93; RESP 18; TEMP 37.3; O2SAT 99
[2024-01-18 23:55] LABS: AST(SGOT) 13 U/L (15-37); Alanine Aminotransfer ALT/SGPT 13 U/L (13-56); Creatinine, Serum 0.78 mg/dL (0.55-1.02); EST Glomerular Filtration Rate 99 mL/min (>60); Est Glom Filt Rate - Afr Amer 120 mL/min (>60); Estimated Creatinine Clearance 138.47 ml/min; Uric Acid 3.6 mg/dL (2.6-6.0)
[2024-01-19] VITALS (13 sets, daily range): BP systolic 129–146; BP diastolic 73–92; PULSE 66–93; O2SAT 97–99
[2024-01-19 00:07] LABS: Protein, Urine (Random) 25.8 mg/dL (<11.9); Protein:Creat Ratio 143 mg/g CRE (0-200)
[2024-01-19] MEDS: 0.9% Saline Lock 10 ML Syringe IV (00:58)
--- NOTE | 2024-01-19 01:35 | OB.TRI.PN_ITS ---
Progress Notes Date of Service: 01/18/24 Progress Note: Patient presents for triage evaluation secondary to elevated bp and headache at home FHT: 135 Moderate variability reactive no decelerations category I tracing [place]: irregular Contractions Assessment and plan: Vaginal exam unchanged from office exam, bedside US to confirm position,pre e labs, normal Reactive NST, reassuring maternal and status patient discharged to home to follow-up in office. Labor precautions given See problem list details for additional plan information. Laboratory Studies: Laboratory Tests 01/18/24 01/18/24 Range/Units 23:45 23:15 WBC 8.5 (4.4-11.0) K/mm3 RBC 4.13 L (4.2-5.4) M/mm3 Hgb 11.1 L (12.0-15.0) g/dL Hct 34.4 L (37-47) % MCV 83.3 (81-99) fL MCH 26.9 L (27.0-32.0) pg MCHC 32.3 (32-36) g/dL RDW Std Deviation 44.4 H (35.1-43.9) fl RDW Coeff of Symone 14.7 H (11.6-14.6) % Plt Count 177 (150-450) K/mm3 MPV 12.1 H (6.2-12.0) fl Creatinine 0.78 (0.55-1.02) mg/dL Estim Creat Clear Calc 138.47 ml/min Est GFR (MDRD) Af Amer 120 (>60) mL/min Est GFR (MDRD) Non-Af 99 (>60) mL/min Uric Acid 3.6 (2.6-6.0) mg/dL AST 13 L (15-37) U/L ALT 13 (13-56) U/L U Random Total Protein 25.8 H (<11.9) mg/dL Urine Creatinine 181.00 (NO RANGE EST.) mg/dL Protein/Creatinin Ratio 143 (0-200) mg/g CRE Charges/Coding Multi Select Codes Visit Charges Office Visit/Consults: 25896 OV L2 Est 10min Urinary/Genital Urinary/Genital CPT Codes: 97829-99 non-stress test Interp Assessment & Plan (1) Abnormal glucose affecting : COMMENT: Normal 3hr GTT (2) Anemia affecting : QUALIFIERS: Trimester: third trimester Qualified Code(s): O99.013 - Anemia complicating , third trimester COMMENT: start FE. Rpt labs 4 weeks (3) Short interval between pregnancies affecting , antepartum: (4) Former smoker: COMMENT: quit vaping 03/2022 (5) Anxiety: COMMENT: stable (6) Hx of gestational diabetes in prior , currently : COMMENT: A1C with NOB nl (7) Supervision of high-risk : QUALIFIERS: Trimester: third trimester Qualified Code(s): O09.93 - Supervision of high risk , unspecified, third trimester COMMENT: [id number], JOSEPH 01/28/24, Yaritza Kay (8) : QUALIFIERS: Weeks of gestation: 38 weeks Qualified Code(s): Z3 A.38 - 38 weeks gestation of COMMENT: gbs neg. normal anatomy, discussed genetic & carrier testing (9) Depression: QUALIFIERS: Depression Type: unspecified Qualified Code(s): F32.A - Depression, unspecified COMMENT: did not tolerate zoloft or lexapro. d/c'd. currently on latuda, limited human safety in . stable (10) Asthma: COMMENT: controlled no regular inhaler use (11) Headache in , antepartum: COMMENT: normal bps and pre e labs
== END 2024-01-19 01:44 | disposition home or self-care (01) ==
LOC: WPOUT 22:54 → WP 22:55
PROVIDERS: Visit Provider Advanced Practice Midwife
DX: O99.891 Other specified diseases and conditions complicating pregnancy (principal); R03.0 Elevated blood-pressure reading, without diagnosis of hypertension; R51.9 Headache, unspecified; O99.013 Anemia complicating pregnancy, third trimester; Z87.891 Personal history of nicotine dependence; O99.343 Other mental disorders complicating pregnancy, third trimester; F32.A Depression, unspecified; Z79.899 Other long term (current) drug therapy; O99.513 Diseases of the respiratory system complicating pregnancy, third trimester; J45.909 Unspecified asthma, uncomplicated; O09.93 Supervision of high risk pregnancy, unspecified, third trimester; Z3A.38 38 weeks gestation of pregnancy; D64.9 Anemia, unspecified
CPT/HCPCS: 36415; 59025; 59050; 76815; 82565; 82570; 84156; 84450; 84460; 84550; 85027; 99221; A4216; G0378

== ENCOUNTER 2024-01-30 00:52 | Inpatient (IN) | payer OTHER, SELFPAY ==
[2024-01-30] VITALS (60 sets, daily range): BP systolic 118–175; BP diastolic 71–109; PULSE 88–173; RESP 16–18; TEMP 36.5–37.2; O2SAT 80–99; BMI 39.6
[2024-01-30] MEDS: Lactated Ringers 1,000 ML 999 ML IV (01:00)
--- NOTE | 2024-01-30 01:24 | HP.PCM.OB_ITS ---
HPI - General General Date of Admission: 01/30/24 Date of Service: 01/30/24 HPI Narrative SISSY BRINK, is a 18 F 40.2 who presents to unit in active labor. Admission orders given Maternal Data Information JOSEPH Calculator Estimated Delivery Date Method Current WG Current Estimate 01/28/24 LMP (Certain) 40w 2d Final JOSEPH: 01/28/24 Final JOSEPH Source: US >20 weeks Gestational age: 40.2 PFSH PFSH Medical History Panic disorder Generalized anxiety disorder Bipolar 2 disorder Seasonal allergies Contraception management Vaginal delivery Anemia due to blood loss, acute hemorrhage macrosomia GBS (group B Streptococcus carrier), +RV culture, currently Gestational diabetes Anxiety Palpitations Supervision of high risk , antepartum Asthma Depression Allergy/AdvReac Type Severity Reaction Status Date / Time No Known Allergies Allergy Verified 01/30/24 01:08 Family History Grandmother Cervical cancer, Onset Age: 40 maternal Family history of recurrent miscarriage maternal- 2 miscarriages Grandfather Myocardial infarction Father Heart disease Mother Family history of recurrent miscarriage 2 miscarriages Aunt Family history of recurrent miscarriage Maternal- 2 miscarriages Social History adopted: No household members: significant other and children housing: house number of children: 1 current occupational status: employed current occupation: Will be starting at [employer] current occupational exposures/hazards: No pets and animals: No (not managing litterbox while ) history of recent travel: No ([place]) sexually active: Yes Smoking Status: Former smoker how long ago did patient quit smoking: Quit 04/08 alcohol intake: never substance use type: does not use well-balanced diet: daily or most days caffeine: No (ocassional) eating out: 1-3 times/week during the past year weight has: increased > 10 lbs what type of physical activity do you participate in: none jose/latter day: Amish seatbelt use: always do you feel safe at home: Yes additional social history: [employer] History 2 Elective abortions Hx Para 1 Spontaneous abortions Hx # Term Pregnancies Ectopic pregnancies Hx # Pregnancies Multiple births # of living children 1 Past Pregnancies Del. Date Name GA/Weeks Outcome Route Bth Weight Gen Labor Lgth Anesthesia Del Locatn Provider FOB 12/15/22 Oksana 39 live - full term vacuum 8lbs 8oz Female [facility] Dr. Mendes Joseph Delivery Date: 12/15/22 Last Updated by: Jany Calderon Gestational diabetes Visit Details Expected Delivery Route/Plan Labor Preferences- CB/BF classes: no labor support person: Joseph labor intervention preferences: [] pain management options preferred: epidural cut cord/dad catch: yes : yes PP control planned: discussed discussed possible routes of delivery and associated risks: [] special requests: [] Plans Covid status: [] Flu vaccine: [] Tdap vaccine: [] Rhogam: NA LARC form signed: yes Problem list reviewed and updated with the most current plan of care details and appropriate orders placed. Relevant counseling for the gestational age provided. Continue routine care and follow up unless otherwise noted in visit notes/problem list details OB Flowsheet Initial Weight: Not Recorded Date -?-?-?-?-?-?-?-?-?-?-?-?- EGA Weight BP Urine Prot -?-?-?-?-?-?-?-?-?-?-?-?- Glucose FHR FuHt Pres Dilation -?-?-?-?-?-?-?-?-?-?-?-?- Effaced St Visit Note 07/08/23 -?-?-?-?-?-?-?-?-?-?-?-?- 10w 6d 193 lb 6 oz 122/79 -?-?-?-?-?-?-?-?-?-?-?-?- 157 -?-?-?-?-?-?-?-?-?-?-?-?- KW-CRL cons with dates. doing well today. discussed NIPT and will consider. 08/05/23 -?-?-?-?-?-?-?-?-?-?-?-?- 14w 6d 194 lb 2 oz 117/76 Nega tive -?-?-?-?-?-?-?-?-?-?-?-?- Negative 155 -?-?-?-?-?-?-?-?-?-?-?-?- JV- no cramping or bleeding. no complaints today. on latuda. limited human data.declines nipt 09/16/23 -?-?-?-?-?-?-?-?-?-?-?-?- 20w 6d 200 lb 122/75 Negative -?-?-?-?-?-?-?-?-?-?-?--?- Negative 145 -?-?-?-?-?-?-?-?-?-?-?-?- JV- anatomy scan scheduled for 09/21. no cramping or spotting. 10/10/23 -?-?-?-?-?-?-?-?-?-?-?-?- 24w 2d 208 lb 8 oz 105/64 Nega tive -?-?-?-?-?-?-?-?-?-?-?-?- Negative 148 -?-?-?-?-?-?-?-?-?-?-?-?- LC- no vb/crampi ng. normal anatomy scan. 28 week labs ordered. LC- no vb/cramping. normal a natomy scan. 28 week labs ordered. larc signed. 11/08/23 -?-?-?-?-?-?-?-?-?-?-?-?- 28w 3d 213 lb 8 oz 116/72 Nega tive -?-?-?-?-?-?-?-?-?-?-?-?- Negative 137 -?-?-?-?-?-?-?-?-?-?-?-?- MH-No VB, LOF. G ood FM. Denies concerns MH-No VB, LOF. Good FM. Shadi es concerns. Start OTC FE daily for anemia. 3hr GTT ordered. 11/24/23 -?-?-?-?-?-?-?-?-?-?-?-?- 30w 5d 218 lb 129/85 Negative -?-?-?-?-?-?-?-?-?-?-?-?- Negative 140 31 -?-?-?-?-?-?-?-?-?-?-?-?- SM- no vb lof go od fm nor egular ctx 12/06/23 -?-?-?-?-?-?-?-?-?-?-?-?- 32w 3d 217 lb 104/68 -?-?-?-?-?-?-?-?-?-?-?-?- 145 32 -?-?-?-?-?-?-?-?-?-?-?-?- KW- no vb/lof/ct x. good fm. passed 3 hour gct 12/20/23 -?-?-?-?-?-?-?-?-?-?-?-?- 34w 3d 220 lb 6 oz 118/70 Nega tive -?-?-?-?-?-?-?-?-?-?-?-?- Negative 158 34 0 -?-?-?-?-?-?-?-?-?-?-?-?- MH-No VB but hav ing more increased yellow discharge. Good FM. No itching. Some irritation. Comp Vag culture collected. Good FM. 01/05/24 -?-?-?-?-?-?-?-?-?-?-?-?- 36w 5d 223 lb 8 oz 111/74 Nega tive -?-?-?-?-?-?-?-?-?-?-?-?- Negative 156 37 Cephalic 1 -?-?-?-?-?-?-?-?-?-?-?-?- 50 -3 JV- GBS co llected, no lof, vaginal bleeding, or dec fm. 01/11/24 -?-?-?-?-?-?-?-?-?-?-?-?- 37w 4d 226 lb 113/80 -?-?-?-?-?-?-?-?-?-?-?-?- 155 37 Cephalic 1 -?-?-?-?-?-?-?-?-?-?-?-?- SM- no vb lof go od fm no regular ctx 01/18/24 -?-?-?-?-?-?-?-?-?-?-?-?- 38w 4d 229 lb 139/86 Negative -?-?-?-?-?-?-?-?-?-?-?-?- Negative 135 38 Cephalic 4 -?-?-?-?-?-?-?-?-?-?-?-?- 70 -3 KW- no vb/ lof/reg ctx. good fm. labor precautions. would like membrane sweep next week 01/25/24 -?-?-?-?-?-?-?-?-?-?-?-?- 39w 4d 226 lb 8 oz 120/74 Nega tive -?-?-?-?-?-?-?-?-?-?-?-?- Negative 151 40 Cephalic -?-?-?-?-?-?-?-?-?-?-?-?- MH-NO VB, LOF or reg CTX. Declines pelvic exam today. US confirms cephalic. NST FHR Rate Baby A Baseline: 145 Variability:: Moderate Accelerations:: 15 x 15 Decelerations:: None NST Reactive:: Yes FHR Category:: Category I Uterine Activity:: 4-5 minutes ROS Constitutional Constitutional: Denies change in weight, fatigue, fever(s), headache(s), poor appetite or weakness Eyes Eyes: Denies blurry vision, change in vision, floaters, seeing flashes or spots in vision ENT HEENT: Denies dizziness, headache(s), loss taste/smell or sore throat Cardiovascular Cardiovascular: Denies chest pain, dizziness, dyspnea, irregular heart rhythm, lightheadedness, palpitations or rapid heart rate Respiratory/Chest Respiratory/Chest: Denies change in mental status, chest tightness, cough, dyspnea or breast pain Gastrointestinal Gastrointestinal: Denies anorexia, chewing difficulty, constipation, diarrhea or weight changes Genitourinary Genitourinary: Denies difficulty urinating, dysuria, flank pain, genital pain, urinary frequency or urinary urgency Musculoskeletal Musculoskeletal: Denies back pain, difficulty walking, extremity pain, joint pain, muscle cramps or muscle weakness Integumentary Integumentary: Denies lesions or unusual bruising Neurologic Neurologic: Denies abnormal movements, abnormal speech, dizziness, numbness, seizure-like activity, syncope or weakness Psychiatric Psychiatric: Denies behavioral changes, change in appetite, confusion, depression, homicidal ideation, suicidal ideation or suicidal thoughts Endocrine Endocrinology: Denies excessive sweating, polydipsia or polyuria Hematologic/Lymphatic Hematologic/Lymphatic: Denies anemia Allergic/Immunologic Allergic/Immunologic: Denies itchy eyes, lip swelling, throat swelling, tongue swelling or wheezing Vital Signs Vital Signs Vital Signs: 01/30/24 00:57 01/30/24 00:57 01/30/24 01:20 Pulse Rate 95 Blood Pressure 175/109 H 159/105 H BP Systolic 175 159 BP Diastolic 109 105 01/30/24 01:20 Pulse Rate 88 Blood Pressure BP Systolic BP Diastolic Weight Weight: 231 lb Body Mass Index (BMI) 39.6 Physical Exam Const alert, oriented x3 and no apparent distress General Appearance: cooperative Orientation / Consciousness: awake HEENT normocephalic Neck full ROM Lymph Lymphatic: no lymphadenopathy noted Chest inspection of chest normal Resp normal respiratory effort and normal air movement Effort and Inspection: able to speak in complete sentences and symmetric chest movement GI soft to palpation and non-tender Inspection: gravid Palpation: soft; Negative for tender external exam normal Back/Spine normal to inspection Extremity normal to inspection and full ROM Skin no rashes or lesions noted Psych mental status grossly normal Appearance: grossly normal Speech: normal speech Labs Labs Labs: Blood Type O POSITIVE Antibody Screen NEGATIVE Hct 34.4 % (37-47) L Hgb 11.1 g/dL (12.0-15.0) L Obstetrics Ultrasound Syphilis Total Ab Non-reactive Rubella IgG Antibody Reactive (Nonreactive) Hep Bs Antigen Non-Reactive (Nonreactive) Hepatitis C Antibody Non-Reactive (Nonreactive) Chlamydia DNA (REYNALDO) Negative (Negative) N.gonorrhoeae DNA (REYNALDO) Negative (Negative) HIV 1&2 Antibody Non-Reactive (Nonreactive) Glucose 1 Hr 50 gm 155 mg/dL (70-140) H Gest Glucose Tolerance MG/DL Assessment & Plan (1) Headache in , antepartum: COMMENT: normal bps and pre e labs; resolved (2) Anemia affecting : QUALIFIERS: Trimester: third trimester Qualified Code(s): O99.013 - Anemia complicating , third trimester COMMENT: start FE. Rpt labs 4 weeks (3) Short interval between pregnancies affecting , antepartum: (4) Former smoker: COMMENT: quit vaping 03/2022 (5) Anxiety: COMMENT: stable (6) Hx of gestational diabetes in prior , currently : COMMENT: A1C with NOB nl (7) Supervision of high-risk : QUALIFIERS: Trimester: third trimester Qualified Code(s): O09.93 - Supervision of high risk , unspecified, third trimester COMMENT: [id number], JOSEPH 01/28/24, Yaritza Kay (8) : QUALIFIERS: Weeks of gestation: 39 weeks Qualified Code(s): Z3A.39 - 39 weeks gestation of COMMENT: gbs neg. normal anatomy, discussed genetic & carrier testing (9) Depression: QUALIFIERS: Depression Type: unspecified Qualified Code(s): F32.A - Depression, unspecified COMMENT: did not tolerate zoloft or lexapro. d/c'd. currently on latuda, limited human safety in . stable (10) Asthma: COMMENT: controlled no regular inhaler use (11) Active labor: PLAN: Patient presents IAL, plan expectant management for , pitocin/AROM PRN if needed. Pain management: plans epidural. GBS negative. Management of any complications: none I have reviewed the [facility] and made any clinically relevant updates. Dr Banuelos aware of assessment, plan and admission and agrees with above. Charges/Coding Multi Select Codes Urinary/Genital Urinary/Genital CPT Codes: No Charge
[2024-01-30 01:50] LABS: Absolute Lymphocyte Count 1.86 X10^3/uL (0.83-4.51); Basophil# 0.04 X10^3/uL; Basophil% 0.4 % (0-1); Eosinophil# 0.06 X10^3/uL; Eosinophils% 0.6 % (0-5); Hemoglobin 11.4 g/dL (12.0-15.0); Lymphocyte # 1.86 X10^3/ul (0.83-4.51); Lymphocyte % 17.3 % (19-41); Mean Corp Hgb Conc 31.7 g/dL (32-36); Mean Corpuscular Hgb 26.1 pg (27.0-32.0); Mean Corpuscular Volume 82.6 fL (81-99); Monocyte# 0.72 X10^3/uL; Monocyte% 6.7 % (0-10); NRBC Flagged by Analyzer 0 % (0-5); Neutrophil # 8.02 X10^3/uL (2.7-7.7); Neutrophil % 74.4 % (47-70); Platelet Count 188 K/mm3 (150-450); RBC Distribution Width CV 15.4 % (11.6-14.6); RBC Distribution Width SD 45.9 fl (35.1-43.9); Red Blood Count 4.36 M/mm3 (4.2-5.4); White Blood Count 10.8 K/mm3 (4.4-11.0)
[2024-01-30] MEDS: Lactated Ringers 1,000 ML 50 ML IV (02:05)
[2024-01-30] MEDS: fentaNYL-bupivacaine (epidural) 100 ML BAG EPIDURAL (02:11)
--- NOTE | 2024-01-30 02:33 | PCM.PN.BLA ---
Progress Note comfortable with epidural current tracing: FHT: 140 Moderate variability reactive no decelerations category I tracing [place]: 3-4 minute Contractions Membranes:ruptured meconium SVE:7/90/-2 A/P: Continue with position changes Titrate pitocin per protocol Epidural per anesthesia GBS neg Anticipate Dr Banuelos aware of above assessment and agrees with plan of care Assessment & Plan Assessment/Plan (1) Active labor: (2) Headache in , antepartum: (3) Anemia affecting : QUALIFIERS: Trimester: third trimester Qualified Code(s): O99.013 - Anemia complicating , third trimester (4) Short interval between pregnancies affecting , antepartum: (5) Former smoker: (6) Anxiety: (7) Hx of gestational diabetes in prior , currently : (8) Supervision of high-risk : QUALIFIERS: Trimester: third trimester Qualified Code(s): O09.93 - Supervision of high risk , unspecified, third trimester (9) : QUALIFIERS: Weeks of gestation: 39 weeks Qualified Code(s): Z3A.39 - 39 weeks gestation of (10) Depression: QUALIFIERS: Depression Type: unspecified Qualified Code(s): F32.A - Depression, unspecified (11) Asthma: Multi Select Codes Urinary/Genital Urinary/Genital CPT Codes: No Charge
[2024-01-30 02:35] LABS: Syphilis Antibodies Non-reactive
[2024-01-30] MEDS: Oxytocin 15 Units/NS 250ml 15 UNITS/250 ML IV.SOLN 334 UNITS IV (06:35)
[2024-01-30] MEDS: Oxytocin 10 UNITS/ML Vial IM (06:41)
--- NOTE | 2024-01-30 06:58 | EX.PCM.OBRPT ---
Assessment & Plan (1) Vaginal delivery: COMMENT: SALLY DENNISON boy 40.2 Maternal Data Information JOSEPH Calculator Estimated Delivery Date Method Current WG Current Estimate 01/28/24 LMP (Certain) 40w 2d Final JOSEPH: 01/28/24 Final JOSEPH Source: US >20 weeks Gestational age: 40.2 Vaginal Delivery Maternal Presentation Maternal Presentation: Active Labor Maternal Presentation: Progressed well to 10cm dilated and made steady progress with effective maternal pushing. Delivered the head in OSCAR presentation. The head was delivered atraumatically and no nuchal cord was identified. The anterior and posterior shoulders delivered without complication followed by the rest of the infant and the infant was placed on the maternal abdomen. Delayed cord clamping was employed for approximately 3 minutes. Cord was clamped and cut and gentle traction was applied to the cord and the placenta delivered spontaneously. Immediately following, it was noted to be intact with a 3 vessel cord. Moderate amount of bleeding noted, hx of PPH with last infant. IM pitocin and IV pitocin given. Internal sweep of uterus done and 2 clots removed. Bleeding stable. The perineum and vagina were inspected and noted to have a first degree laceration which was repaired with 3-0 Vicryl in the usual fashion. EBL was 600cc. Patient and infant tolerated delivery well. Apgars 8/9. Dr Becker notified of vaginal delivery and orders reviewed. Physician agrees with current plan of care. 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: Lu Mcclain Type of Anesthesia: Epidural Estimated Blood Loss: 600 Time of Delivery: 06:23 Findings Presentation: Vertex Amniotic Membrane Rupture Type: Artificial Amniotic Fluid Description: Lightly stained meconium Placental Delivery Description: Spontaneous Placenta Disposition: [facility] Cord Vessel Description: 3 Vessels Cord Entanglement: None A Gender: Male (1 minute): 8 (5 minute): 9 Delayed Cord Clamping: Yes Post Vaginal Delivery Medications Given After Delivery: IV Pitocin and IM Pitocin Episiotomy Description: None Laceration: 1st degree Complication Complications: None Multi Select Codes Urinary/Genital Urinary/Genital CPT Codes: 28121 Vaginal Delivery [facility]
--- NOTE | 2024-01-30 07:03 | DCINST_ITS ---
Discharge Instructions Diet Discharge Diet: No restrictions Activity Discharge Activity: Return to Normal Activity May resume sexual activity in: 6-8 weeks Dressing / Incision Call your doctor if you observe: Fever of 101 or Higher, Coldness, Increased Pain, Numbness or Tingling, Change in Color, Inability to urinate, Inability to have a bowel movement, Using more than 1 pad per hour, Shortness of breath, Dizziness, Fainting spells, Swelling in the ankles, Chest pain, Increased palpitations (irregular heartbeat), Calf discomfort and Uncontrolled pain Follow Up Care Please Follow Up With: Lu Mcclain CNM When: Please call the office to schedule your follow up appointment in 6 weeks. If you had high blood pressure please call to schedule an appointment in 2 weeks. Test Results: Test results from this visit will be discussed in further detail at your follow- up appointment, if applicable. Discharge Plan Admission Admit Date/Time: 01/30/24 00:52 Attending Provider: Lu Mcclain Primary Care Provider: Care Physician,No Primary Discharge Orders/Prescriptions Referrals / Follow Up: Care Physician,No Primary [Primary Care Provider] -
[2024-01-30] MEDS: Oxytocin 15 Units/NS 250ml 15 UNITS/250 ML IV.SOLN 83 UNITS IV (07:10)
[2024-01-30] MEDS: Ibuprofen 600 MG Tablet PO ×3 (09:05→22:21)
[2024-01-30] MEDS: 0.9% Saline Lock 10 ML Syringe IV (16:35)
[2024-01-30] MEDS: Acetaminophen 500 MG Tablet 1000 MG PO (20:13)
[2024-01-30] MEDS: Benzocaine/Lanolin/Aloe Vera 1 SPRAY EACH TOPICAL (22:16)
[2024-01-31 00:10] VITALS: BP 106/66; PULSE 104; RESP 14; TEMP 36.5; O2SAT 98
[2024-01-31 04:45] VITALS: BP 123/91; PULSE 78; RESP 18; TEMP 36.4; O2SAT 98
[2024-01-31 05:14] LABS: Absolute Lymphocyte Count 1.89 X10^3/uL (0.83-4.51); Absolute Neutrophil Count 7.3 X10^3/uL (2.0-7.7); Basophil# 0.03 X10^3/uL; Basophil% 0.3 % (0-1); Eosinophil# 0.15 X10^3/uL; Eosinophils% 1.5 % (0-5); Hematocrit 30.7 % (37-47); Hemoglobin 9.3 g/dL (12.0-15.0); Lymphocyte # 1.89 X10^3/ul (0.83-4.51); Lymphocyte % 18.9 % (19-41); Mean Corp Hgb Conc 30.3 g/dL (32-36); Mean Corpuscular Hgb 26.5 pg (27.0-32.0); Mean Corpuscular Volume 87.5 fL (81-99); Mean Platelet Vol. 11.8 fl (6.2-12.0); NRBC Flagged by Analyzer 0 % (0-5); Neutrophil # 7.33 X10^3/uL (2.7-7.7); Neutrophil % 73.5 % (47-70); Platelet Count 130 K/mm3 (150-450); RBC Distribution Width CV 15.8 % (11.6-14.6); RBC Distribution Width SD 49.5 fl (35.1-43.9); Red Blood Count 3.51 M/mm3 (4.2-5.4)
[2024-01-31 07:30] VITALS: BP 127/76; PULSE 67; RESP 16; TEMP 36.7; O2SAT 99
[2024-01-31] MEDS: Ibuprofen 600 MG Tablet PO (07:36)
--- NOTE | 2024-01-31 08:01 | PCM.PN.OB ---
Subjective Subjective Patient doing well without complaints. Tolerating PO. Ambulating and voiding without difficulty. Feeding well. Denies chest pain, shortness of breath, calf pain/swelling, fevers, chills, lightheadedness. Objective Data Objective Data Vital Signs: Vital Signs Temp Pulse Resp BP Pulse Ox O2 Del Method 97.5 F L 78 18 123/91 H 98 Room Air 01/31/24 04:45 01/31/24 04:45 01/31/24 04:45 01/31/24 04:45 01/31/24 04:45 01/31/24 04:45 Oxygen Delivery Method Room Air Weight: 231 lb Body Mass Index (BMI) 39.6 Intake & Output: Intake and Output for Last 24 Hours 01/29/24 01/30/24 01/31/24 23:59 23:59 23:59 Intake Total 2532.33 / 2532.33 Output Total 1680 / 1680 Balance 852.33 / 852.33 Lab / Micro Data 01/31/24 05:00 Labs: Laboratory Results - last 24 hr 01/31/24 05:00: WBC 10.0, RBC 3.51 L, Hgb 9.3 L, Hct 30.7 L, MCV 87.5 D, MCH 26.5 L, MCHC 30.3 L, RDW Std Deviation 49.5 H, RDW Coeff of Symone 15.8 H, Plt Count 130 L, MPV 11.8, Immature Gran % (Auto) 0.800, Neut % (Auto) 73.5 H, Lymph % (Auto) 18.9 L, [place] % (Auto) 5.0, Eos % (Auto) 1.5, Baso % (Auto) 0.3, Absolute Neuts (auto) 7.3, Absolute Lymphs (auto) 1.89, Nucleated RBC % 0 Physical Exam Const alert and oriented x3 HEENT normocephalic Eyes PERRL Neck full ROM Resp normal respiratory effort GI soft to palpation GI Narrative: FF below U Assessment & Plan (1) Vaginal delivery: COMMENT: KW IAL boy Joseph III. 40.2 PLAN: Plan s/p PPD # 1 1. routine post delivery care 2. breast feeding- support given 3. rh positive 4. rubella immune 5. home today
--- NOTE | 2024-01-31 12:16 | CASEMGMT ---
Social Work Assessment Labor and Delivery Unit Patient Address: [address] [place] [address] Phone number: [phone] Date of Referral: 01/30/24 Time of Referral:? 805 Referred By: Lu Mcclain Date of Intervention: ??01/31/24 Time of Intervention:? 929 Reason for Referral:? hx of bipolar, anxiety, depression and depression Sw completed chart review and acknowledges social work consult due to maternal mental health history. Sw presented to bedside and introduced self to mother of baby (MOB- Shawanda) and father of baby (FOB- Joseph). Sw explained reason for sw involvement and completed psychosocial assessment. History obtained from: medical records, MOB and FOB Household composition: Currently residing in the home is JOSE MIGUEL, CATHY, their older daughter- Oksana (12/15/22), and baby when ready for discharge. Parents deny any issues or concerns with current housing. Patient's parent/guardian status:?Parents report that they have been together for 2 years after being introduced to each other by a mutual friend. MOB met with MOB privately towards end of assessment, and at that time MOB denies any issues or concerns of domestic violence or intimate partner violence. ? Medical History: ?JOSE MIGUEL is 18 year old female who is 2, para 1- now 2 following labor and delivery. JOSE MIGUEL received routine care during with [facility]. JOSE MIGUEL presented to hospital and delivered baby at 40 weeks gestation via vaginal delivery on 01/30/24. Baby boy, named Joseph Patricia, was born weighing 9lb 5oz with apgars of 8 and 9 at one and five minutes of life, respectfully. JOSE MIGUEL is breast feeding and states that baby will be followed by Dr. Martin for pediatrics. Educational Status:? Both parents graduated from high school, JOSE MIGUEL states that she is currently taking time off of nursing school due to having a baby. No issues with reading, learning or comprehension. 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 Supplies:?? Parents report that they have obtained all necessary baby supplies, including: car seat, safe sleep space, clothes, diapers and wipes. Childcare/Caregiver(s):? MOB will be the primary caregiver to baby along with CATHY when he is not at work. When both parents are working CATHY's sister will help provide childcare. Transportation:?? Both parents have their drivers license and reliable means of transportation, no barriers at this time. Programs/Agencies Involved: ???JOSE MIGUEL is connected to [facility], but denies any linkage to any other community resources at this time. Children Services/Legal Issues:???No history of children services involvement, no issues or concerns warranting referral to be made at this time. Behavioral Health Issues: ??Mental Health History:??FOB states that he has been diagnosed with ADHD. JOSE MIGUEL states that she has been diagnosed with depression, bipolar, anxiety and a panic disorder. JOSE MIGUEL was previously prescribed lorazedone to help manage her mental health symptoms, but she discontinued use during . JOSE MIGUEL states that she is going to be talking to her OBGYN to restart her medication to assist her during this period. JOSE MIGUEL completed [place] Depression Scale, her score was a 10. Sw provided education and support. Sw encouraged JOSE MIGUEL to get connected to a mental health professional to help her manager restaurant her mental health during this period. ?JOSE MIGUEL states that she did experience depression following her last delivery in 2022. JOSE MIGUEL states that she did not recognize that she was struggling until it was pointed out to her from FOB and her other family members. FOB reports that JOSE MIGUEL started to not respond to baby crying and was inactive and did not want to do anything. JOSE MIGUEL reports that at this time she feels more prepared to parent and what to expect with her mental health during this period. JOSE MIGUEL was previously connected to [facility] for mental health services and states that she is open to seeing her counselor regularly during this time. JOSE MIGUEL states that although her medication was discontinued during her she will be talking to her OBGYN to start it again which she feels will also help her. Substance Use History: JOSE MIGUEL denies any substance use prior to and during .?? Family History:?Both parents report family history of substance use, outside of their parents. MOB and FOB state that they know how to utilize healthy coping skills opposed to comfort from drugs or alcohol.? Drug Screens: ??No urine screen observed in chart review, screen done in 2021 was negative for all substances. Family/Social Stressors:? Parents deny any issues or concerns at this time. Support Systems: Parents report that maternal grandparents and paternal aunt are their greatest supports at this time. Depression/Shaken Baby/Safe Sleeping:?Tawanna educated parents on signs and symptoms of baby blues and mood and anxiety disorders to be on the lookout for during this period. Both parents acknowledge that they are aware of what to be on the lookout for. MOB states that she is open to getting connected to a mental health professional to help her manage her symptoms during this time. FOB states that he is aware of changes that MOB presents when she is struggling, and he knows how to help and support her. Sw educated parents on shaken baby prevention and ABCs of safe sleep. Parents express understanding. ASSESSMENT:? MOB and baby are admitted following labor and delivery. MOB with mental health history positive for: anxiety, depression, bipolar and panic disorder. JOSE MIGUEL has sought mental health support and services in the past and states at this time that she is receptive to getting reconnected at this time. JOSE MIGUEL was previously seeing a counselor at [facility]. JOSE MIGUEL has obtained all necessary baby supplies, and has natural supports in place. PLAN:? MOB and baby to be discharged when medically ready. ?No other services requested or indicated. Meliza Nesbitt, MATERIALS COORDINATOR, ASSISTANT TEACHING PROFESSOR
[2024-01-31] MEDS: Acetaminophen 500 MG Tablet 1000 MG PO (13:40)
[2024-01-31 15:00] VITALS: BP 135/93; PULSE 82; RESP 16; TEMP 36.6; O2SAT 99
== END 2024-01-31 15:35 | disposition home or self-care (01) | DRG 806 ==
LOC: WPOUT 00:58 → WP 00:58
PROVIDERS: Admitting Provider Advanced Practice Midwife; Visit Provider Advanced Practice Midwife
DX: O99.344 Other mental disorders complicating childbirth (principal); Z37.0 Single live birth; O72.1 Other immediate postpartum hemorrhage; F32.A Depression, unspecified; O70.0 First degree perineal laceration during delivery; O77.0 Labor and delivery complicated by meconium in amniotic fluid; O99.02 Anemia complicating childbirth; Z3A.39 39 weeks gestation of pregnancy; Z87.891 Personal history of nicotine dependence; Z86.32 Personal history of gestational diabetes
CPT/HCPCS: 59025; 59050; 85025; 86780; 86850; 86900; 86901; 99221; J7120; A4216; G0378

== ENCOUNTER 2024-02-07 09:33 | Emergency (ER) | payer OTHER, SELFPAY ==
[2024-02-07] VITALS (9 sets, daily range): BP systolic 122–139; BP diastolic 74–91; PULSE 66–77; RESP 13–21; TEMP 36.7; O2SAT 97–100; BMI 35.8
--- NOTE | 2024-02-07 09:42 | EKG12_ITS ---
Test Reason : DIZZY Blood Pressure : / mmHG Vent. Rate : 085 BPM Atrial Rate : 085 BPM P-R Int : 130 ms QRS Dur : 076 ms QT Int : 382 ms P-R-T Axes : 050 025 038 degrees QTc Int : 454 ms Normal sinus rhythm with sinus arrhythmia Normal ECG Confirmed by ROGER YOUNGER, ISAAC ([id number]), material expeditor PEDRO DURHAM ([id number]) on 02/08/2024 10:17:45 AM Referred By: Confirmed By:ISAAC DURAN MD
--- NOTE | 2024-02-07 09:42 | EDS_ITS ---
HPI History of Present Illness Chief Complaint: Dizziness Detail of Chief Complaint: Near syncope today. Informant: patient Onset/Context/Timing Onset: Today and Hours Context: Gradual Onset Timing: Continuous Current Severity: Mild Maximum Severity: Mild Narrative Narrative: 18-year-old female who gave on January 29. Vaginal delivery no complications. She has a history of anemia. Today she had a near syncopal episode. Prior history of similar events but she is never actually passed out and she did not pass out today. This occurred about 2 hours ago. She denies any recent illness. She denies any leg pain or swelling. No chest pain or shortness of breath. States she has been eating and drinking well. No fever. She still having vaginal bleeding but no pelvic pain or fever. No discharge. No dysuria. Prior similar symptoms: Yes Recent Illness/Hospitalization: No PFSH PFS Medical History Former smoker Hx of gestational diabetes in prior , currently Vaginal delivery hemorrhage depression Gestational diabetes Panic disorder Generalized anxiety disorder Bipolar 2 disorder Seasonal allergies Contraception management Anemia due to blood loss, acute hemorrhage macrosomia GBS (group B Streptococcus carrier), +RV culture, currently Gestational diabetes Anxiety Palpitations Supervision of high risk , antepartum Asthma Depression Home Medications ?Medication ?Instructions ?Recorded ?Last Taken ?Type citalopram 20 mg tablet 20 mg PO DAILY #30 tabs 02/06/24 Unknown Rx Allergy/AdvReac Type Severity Reaction Status Date / Time No Known Allergies Allergy Verified 02/07/24 09:33 Family History Grandmother Cervical cancer, Onset Age: 40 maternal Family history of recurrent miscarriage maternal- 2 miscarriages Grandfather Myocardial infarction Father Heart disease Mother Family history of recurrent miscarriage 2 miscarriages Aunt Family history of recurrent miscarriage Maternal- 2 miscarriages Social History adopted: No household members: significant other and children housing: house number of children: 1 current occupational status: employed current occupation: Will be starting at [employer] current occupational exposures/hazards: No pets and animals: No (not managing litterbox while ) history of recent travel: No ([place]) sexually active: Yes Smoking Status: Former smoker how long ago did patient quit smoking: Quit 04/08 alcohol intake: never substance use type: does not use well-balanced diet: daily or most days caffeine: No (ocassional) eating out: 1-3 times/week during the past year weight has: increased > 10 lbs what type of physical activity do you participate in: none jose/lutheran: Mormon seatbelt use: always do you feel safe at home: Yes additional social history: Aura Valderr[employer] ROS ROS ED ROS Narrative Denies recent illness. Review of Systems ROS Unobtainable: Denies due to encephalopathy Constitutional Constitutional ED: Denies chills or fever(s) Eyes Eyes: Denies blurry vision ENT ENT ED: Denies ear pain Cardiovascular Cardiovascular: Denies chest pain Respiratory/Chest Respiratory/Chest: Denies cough or dyspnea Gastrointestinal Gastrointestinal: Denies abdominal pain, diarrhea, nausea or vomiting Genitourinary Genitourinary ED: Denies dysuria or hematuria Musculoskeletal Musculoskeletal: Denies arthralgias Integumentary Denies abscess Neurologic Neurologic: Denies paresthesias or weakness Psychiatric Psychiatric: Denies anxiety Endocrine Endocrinology: Denies cold intolerance Hematologic/Lymphatic Hematologic/Lymphatic: Reports anemia Allergic/Immunologic Allergic/Immunologic ED: Denies mouth swelling, tongue swelling or urticaria EXAM Physical Exam Narrative Exam Narrative: Well-appearing 18-year-old female. Vital signs are stable afebrile. She does not look septic toxic or in distress. Pulse ox 100% on room air no hypoxia. H EENT exam unremarkable. Pupils round reactive light. Moist weeks membranes. Neck nontender. Lungs clear to auscultation bilaterally. Heart regular rate and rhythm rate about 70 no murmur. Chest wall and ribs nontender. Abdomen soft nontender. No suprapubic tenderness. Moving all 4 extremities. 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 Dorsi plantarflexion intact. Normal range of motion. Nontender. No edema or cords. Neurologically she is awake and alert no focal motor deficits. Answering questions and following commands. Very benign normal exam. Const Vital Signs: 02/07/24 09:33 02/07/24 09:36 02/07/24 09:42 Temperature 98.1 F Temperature Source Oral Pulse Rate 73 Respiratory Rate 15 Respiratory Effort Normal Non-Labored Blood Pressure 139/91 H Blood Pressure Mean 107 Pulse Ox 100 Oxygen Delivery Method Room Air Room Air 02/07/24 10:37 02/07/24 11:00 Temperature Temperature Source Pulse Rate 66 67 Respiratory Rate 21 H 18 Respiratory Effort Blood Pressure 123/87 H 133/86 H Blood Pressure Mean 99 101 Pulse Ox 97 97 Oxygen Delivery Method Room Air Room Air Positive well nourished and well developed; Negative for cachectic, contractures or unkempt General Appearance ED: well developed and NAD; Negative for unkempt, cachectic, contractures, cyanotic, diaphoretic or pallor Nutritional Appearance: Negative for cachectic HEENT Reports moist mucous membranes; Denies dry mucous membranes Negative for trauma or tenderness Mouth ED: No dry mucous membranes Mouth: No dry mucous membranes Eyes PERRL and EOMs intact bilaterally General Eye ED: Negative for pale conjunctiva or scleral icterus Neck no lymphadenopathy, supple and no JVD General: Negative for tenderness Lymph Lymphatic: Negative for other Chest Wall inspection of chest normal and palpation of chest normal Chest: Negative for other Resp normal respiratory effort and clear to auscultation bilaterally Effort and Inspection: Negative for retractions Auscultation: Negative for rales, rhonchi, wheezes or diminished lung sounds Cardio regular rate, regular rhythm, S1 normal heart sound, S2 normal heart sound and no murmurs Palpation: Negative for palpable S3 or palpable S4 Rate: Negative for bradycardia or tachycardic Rhythm: Negative for abnormal rhythm GI normal to inspection, nondistended, normoactive bowel sounds, non-tender, non- distended and no masses Inspection: Negative for abdominal distention Auscultation: normoactive bowel sounds Palpation: soft; Negative for tender, guarding or rebound tenderness present Back/Spine no CVA tenderness General Back: Negative for CVA tenderness Cervical Spine: Negative for cervical spine tenderness Thoracic Spine / Upper Back: Negative for thoracic spinal tenderness or paraspinal muscle tenderness Lumbar Spine / Lower Back: Negative for lumbar spinal tenderness Extremity normal to inspection General Extremety ED: Negative for edema or tenderness General Extremity: Negative for edema Neuro oriented x3 and CN's II-XII intact bilaterally Sensorium / Orientation: alert; Negative for orientation impaired, lethargic or stuporous Motor Exam: strength 5/5 throughout; Negative for general weakness or strength abnormal Psych mental status grossly normal Appearance: Negative for unkempt Attitude: No agitated Mood & Affect: Negative for depressed, anxious or tearful Skin no rashes or lesions noted, no wounds and skin turgor normal General Skin Exam: elasticity normal; Negative for jaundice or pallor Lesions: No lesion noted Rashes: No rashes noted Trauma: Negative for abrasion Wounds: Negative for wounds noted MDM MDM MDM Narrative Medical decision making narrative: 18-year-old female near syncopal episode. History of anemia. Exam benign. Screening labs and EKG have been obtained. Repeat exam patient is doing well and 11:33 AM. She will be discharged to home. Exam is normal and unchanged. I do not have a specific cause for her near syncope. Her exam and all of her labs and tests are unremarkable. History & Record Review Discussion w/independent historian: Patient Lab Data Attestation: I reviewed the patient's lab results. Lab results narrative: CBC normal. White count 7. H&H 12 and 38. Platelets 375. Electrolytes unremarkable gap 8. Normal BUN and creatinine. Glucose 94. Labs: Laboratory Results - last 24 hr 02/07/24 10:07 WBC 7.4 RBC 4.54 Hgb 12.1 Hct 38.1 MCV 83.9 MCH 26.7 L MCHC 31.8 L RDW Std Deviation 46.2 H RDW Coeff of Symone 15.2 H Plt Count 375 MPV 9.8 Immature Gran % (Auto) 0.500 Neut % (Auto) 71.4 H Lymph % (Auto) 18.0 L [place] % (Auto) 4.6 Eos % (Auto) 5.0 Baso % (Auto) 0.5 Absolute Neuts (auto) 5.3 Absolute Lymphs (auto) 1.34 Nucleated RBC % 0 Sodium 138 Potassium 4.0 Chloride 106 Carbon Dioxide 24.0 Anion Gap 8 BUN 11 Creatinine 0.98 Estim Creat Clear Calc 102.52 Est GFR (MDRD) Af Amer 93 Est GFR (MDRD) Non-Af 77 BUN/Creatinine Ratio 11.2 Glucose 94 Calcium 9.2 Discharge Plan Triage Chief Complaint: Dizziness Other Complaint: Palpitations ED Provider: Miguelangel Joshua Dx/Rx/DC Orders Prescriptions: No Action citalopram 20 mg tablet 20 mg PO DAILY Qty: 30 1RF Primary Care Provider: Care Physician,No Primary Referrals: Care Physician,No Primary [Primary Care Provider] - Print Language: Slovak
[2024-02-07 10:19] LABS: Absolute Lymphocyte Count 1.34 X10^3/uL (0.83-4.51); Absolute Neutrophil Count 5.3 X10^3/uL (2.0-7.7); Basophil# 0.04 X10^3/uL; Basophil% 0.5 % (0-1); Eosinophil# 0.37 X10^3/uL; Hematocrit 38.1 % (37-47); Hemoglobin 12.1 g/dL (12.0-15.0); Lymphocyte # 1.34 X10^3/ul (0.83-4.51); Mean Corp Hgb Conc 31.8 g/dL (32-36); Mean Corpuscular Hgb 26.7 pg (27.0-32.0); Mean Corpuscular Volume 83.9 fL (81-99); Mean Platelet Vol. 9.8 fl (6.2-12.0); Monocyte# 0.34 X10^3/uL; Monocyte% 4.6 % (0-10); NRBC Flagged by Analyzer 0 % (0-5); Neutrophil % 71.4 % (47-70); Platelet Count 375 K/mm3 (150-450); RBC Distribution Width CV 15.2 % (11.6-14.6); RBC Distribution Width SD 46.2 fl (35.1-43.9); Red Blood Count 4.54 M/mm3 (4.2-5.4); White Blood Count 7.4 K/mm3 (4.4-11.0)
[2024-02-07 10:30] LABS: Anion Gap 8 (5-15); BUN 11 mg/dL (7-18); BUN/Creat Ratio 11.2 RATIO (10-20); Calcium,Total 9.2 mg/dL (8.5-10.1); Chloride 106 mmol/L (98-107); Creatinine, Serum 0.98 mg/dL (0.55-1.02); EST Glomerular Filtration Rate 77 mL/min (>60); Est Glom Filt Rate - Afr Amer 93 mL/min (>60); Estimated Creatinine Clearance 102.52 ml/min; Glucose 94 mg/dL (74-106); Sodium Level 138 mmol/L (136-145)
== END 2024-02-07 12:03 | disposition home or self-care (01) ==
PROVIDERS: Emergency Provider Emergency Medicine; Visit Provider Emergency Medicine
DX: R55 Syncope and collapse (principal); Z87.891 Personal history of nicotine dependence
CPT/HCPCS: 80048; 85025; 93005; 99285; A4216

== ENCOUNTER → 2024-11-09 | Outpatient (CLI) | payer OTHER, SELFPAY | END | disposition home or self-care (01) | LOC: LABSPEC 16:30 | PROVIDERS: PCP Nurse Practitioner Primary Care; Referring Provider Advanced Practice Midwife; Visit Provider Advanced Practice Midwife | DX: R10.2 Pelvic and perineal pain (principal) | CPT/HCPCS: 87070; 87205 ==

== ENCOUNTER 2025-02-08 13:27 | Emergency (ER) | payer OTHER, SELFPAY ==
[2025-02-08 13:27] VITALS: BP 133/96; PULSE 90; RESP 18; TEMP 37; O2SAT 99; BMI 28.3
[2025-02-08 14:27] VITALS: BP 128/90; PULSE 80; RESP 16; O2SAT 98
[2025-02-08 15:27] VITALS: BP 129/93; PULSE 81; RESP 16; O2SAT 98
[2025-02-08 15:50] VITALS: BP 127/86; BP 129/92; BP 137/98; PULSE 100; PULSE 104; PULSE 82
[2025-02-08 15:54] LABS: Hematocrit 40.9 % (37-47); Hemoglobin 14.0 g/dL (12.0-15.0); Immature Granulocytes Count 0.020 X10^3/uL (0.0-0.0); Mean Corp Hgb Conc 34.2 g/dL (32-36); Mean Corpuscular Volume 84.5 fL (81-99); Mean Platelet Vol. 10.7 fl (6.2-12.0); NRBC Flagged by Analyzer 0 % (0-5); Platelet Count 216 K/mm3 (150-450); RBC Distribution Width CV 12.2 % (11.6-14.6); RBC Distribution Width SD 36.9 fl (35.1-43.9); Red Blood Count 4.84 M/mm3 (4.2-5.4); White Blood Count 9.2 K/mm3 (4.4-11.0)
--- NOTE | 2025-02-08 15:57 | EDS_ITS ---
HPI History of Present Illness Chief Complaint: Dizziness Informant: patient Narrative Narrative: 19-year-old female states she been having episodes of dizziness for maybe a month or more. Tends to occur when she stands but also when she changes positions in some ways especially bending over and standing back up. Feels like movement a feeling of off balance, some fuzziness in her head. Yesterday she had an earache and went to urgent care was told she had a lot of cerumen in her ear, they flushed out looked at her eardrum which was red so they put her on an antibiotic she has had 2 doses so far. Her ears improved after all of that yesterday. She has had some minor headaches but nothing major. No fevers or chills. She is describing having a significant episode this morning that felt like lightheadedness, she agrees that she felt like she might pass out but also it felt like movement and she got little nauseated. She denies any focal neurologic symptoms other than those. [facility] Medical History Former smoker Hx of gestational diabetes in prior , currently Vaginal delivery hemorrhage depression Gestational diabetes Panic disorder Generalized anxiety disorder Bipolar 2 disorder Seasonal allergies Contraception management Anemia due to blood loss, acute hemorrhage macrosomia GBS (group B Streptococcus carrier), +RV culture, currently Gestational diabetes Anxiety Palpitations Supervision of high risk , antepartum Asthma Depression Home Medications Medication Instructions Recorded Last Taken Type amitriptyline 10 mg tablet 10 mg PO QHS 02/08/25 Unkno wn History amoxicillin 875 mg-potassium 1 tab PO BID 02/08/25 Unk nown History clavulanate 125 mg tablet fluticasone propionate 50 1 spray intranasal BID #16 g anyi 02/08/25 Unknown Rx mcg/actuation nasal spray,suspension meclizine 25 mg tablet 25 mg PO TID PRN dizziness # 20 tabs 02/08/25 Unknown Rx Allergy/AdvReac Type Severity Reaction Status Date / Time No Known Allergies Allergy Verified 02/08/25 13:29 Family History Grandmother Cervical cancer, Onset Age: 40 maternal Family history of recurrent miscarriage maternal- 2 miscarriages Grandfather Myocardial infarction Father Heart disease Mother Family history of recurrent miscarriage 2 miscarriages Aunt Family history of recurrent miscarriage Maternal- 2 miscarriages Social History adopted: No household members: significant other and children housing: house number of children: 1 current occupational status: employed current occupation: Will be starting at [employer] current occupational exposures/hazards: No pets and animals: No (not managing litterbox while ) history of recent travel: [place] ([place]) sexually active: Yes Smoking Status: Former smoker how long ago did patient quit smoking: Quit 04/08 alcohol intake: never substance use type: does not use well-balanced diet: daily or most days caffeine: No (ocassional) eating out: 1-3 times/week during the past year weight has: increased > 10 lbs what type of physical activity do you participate in: none jose/voodoo: [employer] seatbelt use: always do you feel safe at home: Yes additional social history: [employer] ROS ROS ED Constitutional Constitutional ED: Denies chills or fever(s) Eyes Eyes: Denies blurry vision, change in vision or diplopia ENT ENT ED: Reports as per HPI, disequillibrium, dizziness and ear pain right (Better now/today); Denies rhinorrhea or sore throat Cardiovascular Cardiovascular: Denies chest pain or palpitations Respiratory/Chest Respiratory/Chest: Denies cough or dyspnea Gastrointestinal Gastrointestinal: Reports nausea; Denies abdominal pain, diarrhea or vomiting Genitourinary Genitourinary ED: Denies dysuria or hematuria Musculoskeletal Musculoskeletal: Denies back pain or neck pain Integumentary Denies abscess or rash Neurologic Neurologic: Reports headache(s); Denies paresthesias or weakness Psychiatric Psychiatric: Denies suicidal thoughts EXAM Physical Exam Const Vital Signs: 02/08/25 13:27 02/08/25 14:06 02/08/25 14:27 Temperature 98.6 F Temperature Source Oral Pulse Rate 90 80 Pulse Rate [Lying] Pulse Rate [Sitting (for 1 minute prior to obtaining)] Pulse Rate [Standing (for 1 minute prior to obtaining)] Respiratory Rate 18 16 Respiratory Pattern Normal Blood Pressure 133/96 H 128/90 H Blood Pressure [Lying] Blood Pressure [Sitting (for 1 minute prior to obtaining)] Blood Pressure [Standing (for 1 minute prior to obtaining)] Blood Pressure Mean 108 102 Blood Pressure Mean [Lying] Blood Pressure Mean [Sitting (for 1 minute prior to obtaining)] Blood Pressure Mean [Standing (for 1 minute prior to obtaining)] Pulse Ox 99 98 Oxygen Delivery Method Room Air 02/08/25 15:27 02/08/25 15:50 02/08/25 16:00 Temperature 99.7 F H Temperature Source Temporal Pulse Rate 81 106 H Pulse Rate [Lying] 82 Pulse Rate [Sitting (for 1 minute prior to obtaining)] 100 Pulse Rate [Standing (for 1 minute prior to obtaining)] 104 H Respiratory Rate 16 16 Respiratory Pattern Blood Pressure 129/93 H 117/85 H Blood Pressure [Lying] 127/86 H Blood Pressure [Sitting (for 1 minute prior to obtaining)] 137/98 H Blood Pressure [Standing (for 1 minute prior to obtaining)] 129/92 H Blood Pressure Mean 105 95 Blood Pressure Mean [Lying] 99 Blood Pressure Mean [Sitting (for 1 minute prior to obtaining)] 111 Blood Pressure Mean [Standing (for 1 minute prior to obtaining)] 104 Pulse Ox 98 98 Oxygen Delivery Method Room Air Room Air Positive well nourished and well developed General Appearance ED: well developed and NAD HEENT Reports TM's clear and moist mucous membranes normocephalic and atraumatic Tympanic Membrane ED: Yes TM's clear Eyes PERRL and EOMs intact bilaterally Eyes Narrative: No pathologic nystagmus. No vertical rotatory nystagmus or direction changing horizontal nystagmus. Skew test is negative. Jolt test is negative but patient although she agreed she had dizziness at the time, stated that it was very mild. Neck full ROM, no lymphadenopathy and supple Resp normal respiratory effort and clear to auscultation bilaterally Cardio regular rate, regular rhythm and no murmurs GI non-tender and non-distended Auscultation: normoactive bowel sounds Palpation: soft Back/Spine no CVA tenderness General Back: other FROM Extremity normal to inspection General Extremety ED: Negative for edema, pulses abnormal or tenderness General Extremity: Negative for edema or pulses abnormal Neuro oriented x3, CN's II-XII intact bilaterally and no sensory deficits noted Neuro Narrative: No dysmetria. Normal hwiqva-by-naxa and uike-sl-honw. Sensorium / Orientation: awake and alert Motor Exam: strength 5/5 throughout Psych mental status grossly normal Skin no rashes or lesions noted and no wounds MDM MDM MDM Narrative Medical decision making narrative: Labs were obtained and unremarkable, I had the patient undergo orthostatics. They are negative but when the patient change position turning her head, she had recurrent dizziness despite this, and I think this is all vertiginous rather than presyncope. Her ears are normal-appearing now, leading me to suspect that she did not actually have an otitis media, that her eardrum was erythematous due to the irritation from the cerumen, the irrigation, or both at the time because I do not think 2 doses of antibiotics would have fixed an otitis media overnight. She states that she had an MRI maybe 2 weeks ago of her head and it was normal. She states that she was told on 1 or other of these outpatient imaging which I do not have access to that she was told she has some small amount of fluid/opacification of her mastoid air cells. Given all of this and the fact she is on an antibiotic, I would recommend adding Flonase, as we did discuss that she is having some postnasal drip symptoms and some seasonal allergic rhinitis symptoms, meclizine as needed which I gave her here in addition some Tylenol at her request, and follow-up with ENT as an outpatient. Do not think this is central vertigo. Lab Data Attestation: I reviewed the patient's lab results. Labs: Laboratory Results - last 24 hr 02/08/25 15:46 WBC 9.2 RBC 4.84 Hgb 14.0 Hct 40.9 MCV 84.5 MCH 28.9 MCHC 34.2 RDW Std Deviation 36.9 RDW Coeff of Symone 12.2 Plt Count 216 MPV 10.7 Immature Gran % (Auto) 0.200 Neut % (Auto) 87.4 H Lymph % (Auto) 7.2 L [place] % (Auto) 4.5 Eos % (Auto) 0.5 Baso % (Auto) 0.2 Absolute Neuts (auto) 8.0 H Absolute Lymphs (auto) 0.66 L Nucleated RBC % 0 Sodium 136 Potassium 4.0 Chloride 101 Carbon Dioxide 21.7 Anion Gap 13 BUN 10 Creatinine 0.71 Estim Creat Clear Calc 124.18 Est GFR (MDRD) Non-Af 123 BUN/Creatinine Ratio 13.5 Glucose 115 H Calcium 9.8 Discharge Plan Triage Chief Complaint: Dizziness ED Provider: Yaneth,Av Dx/Rx/DC Orders Clinical Impression: Episodic peripheral vertigo, Dizziness, Allergic rhinitis Instructions: ED Vertigo, Unspecified Prescriptions: New meclizine 25 mg tablet 25 mg PO TID PRN (Reason: dizziness) Qty: 20 0RF fluticasone propionate 50 mcg/actuation spray,suspension 1 spray intranasal BID Qty: 16 0RF Rx Instructions: administer 1 spray into each nostril No Action amitriptyline 10 mg tablet 10 mg PO QHS amoxicillin-pot clavulanate 875-125 mg tablet 1 tab PO BID Primary Care Provider: Veronica Muse NP Referrals: Bharat Vicente MD [Med Staff - Active Staff] - Print Language: Portuguese Disposition Disposition: Home, Self Care
[2025-02-08 16:00] VITALS: BP 117/85; PULSE 106; RESP 16; TEMP 37.6; O2SAT 98
[2025-02-08 16:20] LABS: Anion Gap 13 (5-15); BUN 10 mg/dL (4-19); BUN/Creat Ratio 13.5 RATIO (10-20); Calcium,Total 9.8 mg/dL (7.6-11.0); Carbon Dioxide 21.7 mmol/L (21.0-32.0); Chloride 101 mmol/L (98-108); Estimated Creatinine Clearance 124.18 ml/min (50-250); Glucose 115 mg/dL (70-99); Potassium 4.0 mmol/L (3.3-5.1)
[2025-02-08 17:08] VITALS: BP 126/83; PULSE 103; RESP 16; TEMP 37.6; O2SAT 98
== END 2025-02-08 17:16 | disposition home or self-care (01) ==
PROVIDERS: Emergency Provider Emergency Medicine; PCP Nurse Practitioner Primary Care; Visit Provider Emergency Medicine
DX: H81.399 Other peripheral vertigo, unspecified ear (principal); J30.9 Allergic rhinitis, unspecified; Z87.891 Personal history of nicotine dependence
CPT/HCPCS: 80048; 85025; 99284

== ENCOUNTER → 2025-03-21 | Outpatient (CLI) | payer OTHER, SELFPAY | END | disposition home or self-care (01) | LOC: LABSPEC 15:06 | PROVIDERS: PCP Nurse Practitioner Primary Care; Visit Provider Advanced Practice Midwife | DX: Z12.4 Encounter for screening for malignant neoplasm of cervix (principal) | CPT/HCPCS: 88175; G0145 ==

== ENCOUNTER 2025-03-28 11:09 | Emergency (ER) | payer OTHER, SELFPAY ==
[2025-03-28 11:10] VITALS: BP 128/97; PULSE 79; RESP 15; TEMP 36.8; O2SAT 100; BMI 27.3
--- NOTE | 2025-03-28 11:56 | EDS_ITS ---
HPI History of Present Illness Chief Complaint: Shortness of Breath Informant: patient Onset/Context/Timing Onset: Days (5) Context: gradual Timing: Continuous Worsened by: - (Eating) Relieved by: Nothing Associated Symptoms cough, rhinorrhea, post nasal drip, ear pain, subjective and chills; Negative for fever, sore throat, sweats, clear sputum, white sputum, yellow sputum or green sputum Narrative Narrative: Patient presents with shortness of breath that has been getting worse over the l ast 5 days. Patient states she also has some dizziness where she feels like everything is spinning. Patient also noted some pain and swelling behind her right knee. Patient states she went to the urgent care and then was referred to the emergency department. Patient denies any fevers but admits to some subjective chills. Patient admits to cough but denies any sputum production. Patient admits to bilateral ear pain and pressure. Patient admits to rhinorrhea and postnasal drainage. [facility] Medical History Former smoker Hx of gestational diabetes in prior , currently Vaginal delivery hemorrhage depression Gestational diabetes Panic disorder Generalized anxiety disorder Bipolar 2 disorder Seasonal allergies Contraception management Anemia due to blood loss, acute hemorrhage macrosomia GBS (group B Streptococcus carrier), +RV culture, currently Gestational diabetes Anxiety Palpitations Supervision of high risk , antepartum Asthma Depression Home Medications ?Medication ?Instructions ?Recorded ?Last Taken ?Type amitriptyline 10 mg tablet 10 mg PO QHS 02/08/25 Unkno wn History fluticasone propionate 50 1 spray intranasal BID #16 g anyi 02/08/25 Unknown Rx mcg/actuation nasal spray,suspension meclizine 25 mg tablet 25 mg PO TID PRN dizziness # 20 tabs 02/08/25 Unknown Rx Allergy/AdvReac Type Severity Reaction Status Date / Time No Known Allergies Allergy Verified 03/28/25 11:13 Family History Grandmother Cervical cancer, Onset Age: 40 maternal Family history of recurrent miscarriage maternal- 2 miscarriages Grandfather Myocardial infarction Father Heart disease Mother Family history of recurrent miscarriage 2 miscarriages Aunt Family history of recurrent miscarriage Maternal- 2 miscarriages Social History (Updated 03/28/25 @ 11:[address] John Schwiger, DO) adopted: No household members: significant other and children housing: house number of children: 1 current occupational status: employed current occupation: Will be starting at [employer] current occupational exposures/hazards: No pets and animals: No (not managing litterbox while ) history of recent travel: No ([place]) sexually active: Yes Smoking Status: Former smoker Electronic Cigarette Use: with nicotine how long ago did patient quit smoking: Quit 04/08 alcohol intake: never substance use type: does not use well-balanced diet: daily or most days caffeine: No (ocassional) eating out: 1-3 times/week during the past year weight has: increased > 10 lbs what type of physical activity do you participate in: none jose/advent: Protestant seatbelt use: always do you feel safe at home: Yes additional social history: [employer]ura [employer]ra[employer] ROS ROS ED Constitutional Constitutional ED: Reports chills; Denies fever(s) Eyes Eyes: Denies blurry vision or change in vision ENT ENT ED: Reports ear pain and rhinorrhea; Denies sore throat Cardiovascular Cardiovascular: Reports chest pain; Denies palpitations Respiratory/Chest Respiratory/Chest: Reports cough and dyspnea Gastrointestinal Gastrointestinal: Denies nausea or vomiting Genitourinary Genitourinary ED: Denies dysuria or hematuria Musculoskeletal Musculoskeletal: Reports neck pain; Denies back pain Integumentary Denies abscess or rash Neurologic Neurologic: Denies headache(s) or weakness Allergic/Immunologic Allergic/Immunologic ED: Denies mouth swelling or urticaria EXAM Physical Exam Const Vital Signs: 03/28/25 11:10 03/28/25 11:30 03/28/25 12:18 Temperature 98.2 F Temperature Source Oral Pulse Rate 79 79 Respiratory Rate 15 16 Respiratory Effort Short of Breath Respiratory Depth Normal Respiratory Pattern Normal Blood Pressure 128/97 H Blood Pressure Mean 107 Pulse Ox 100 Oxygen Delivery Method Room Air Room Air 03/28/25 13:00 Temperature Temperature Source Pulse Rate 89 Respiratory Rate 16 Respiratory Effort Respiratory Depth Respiratory Pattern Blood Pressure 114/81 H Blood Pressure Mean 92 Pulse Ox 94 Oxygen Delivery Method Room Air Positive well nourished and well developed Constitutional Narrative: BMI is 27.4. General Appearance ED: well developed and NAD HEENT Reports moist mucous membranes atraumatic Neck supple and no JVD Resp normal respiratory effort and clear to auscultation bilaterally Cardio regular rate and regular rhythm GI non-tender and non-distended Palpation: soft Extremity Extremity Narrative: There is mild tenderness over the posterior aspect of the right knee near the popliteal fossa. There is no erythema or warmth noted. There are no palpable cords noted. Neuro oriented x3, CN's II-XII intact bilaterally and no sensory deficits noted Sensorium / Orientation: alert Speech: speech normal Motor Exam: strength 5/5 throughout Psych mental status grossly normal MDM MDM MDM Narrative Medical decision making narrative: Differential diagnosis includes DVT, pneumonia, bronchitis, electrolyte abnormality, viral upper respiratory infection, vertigo, and anxiety. Venous duplex of the right lower extremity will be obtained to assess for DVT. Chest x-ray will be obtained to assess for pneumonia and bronchitis. COVID-19, influenza, and RSV PCR will be obtained to assess for viral illness. CBC will be obtained to assess for leukocytosis and anemia. Basic metabolic profile will be obtained to assess for electrolyte abnormality renal function. Lab Data Attestation: I reviewed the patient's lab results. Lab results narrative: CBC was reviewed and was within normal limits. Basic metabolic profile was reviewed and was within normal limits. COVID-19 PCR was reviewed and was negative. Influenza PCR was reviewed and was negative for influenza A and influenza B. RSV PCR was reviewed and was negative. Labs: Laboratory Results - last 24 hr 03/28/25 12:14 WBC 4.4 RBC 4.83 Hgb 14.3 Hct 41.9 MCV 86.7 MCH 29.6 MCHC 34.1 RDW Std Deviation 40.1 RDW Coeff of Symone 12.7 Plt Count 215 MPV 10.4 Immature Gran % (Auto) 0.200 Neut % (Auto) 68.8 Lymph % (Auto) 20.3 Jay % (Auto) 7.7 Eos % (Auto) 2.5 Baso % (Auto) 0.5 Absolute Neuts (auto) 3.0 Absolute Lymphs (auto) 0.89 Nucleated RBC % 0 Sodium 141 Potassium 3.9 Chloride 105 Carbon Dioxide 24.4 Anion Gap 11 BUN 13 Creatinine 0.78 Estim Creat Clear Calc 111.30 Est GFR (MDRD) Non-Af 110 BUN/Creatinine Ratio 16.1 Glucose 89 Calcium 9.6 Radiography Chest X-Ray - ED: 2 View, Read by ED Physician, Read by Radiologist and No Acute Disease Diagnostic Testing: Clinical Impression(s) from Imaging Studies Chest X-Ray 03/28/25 12:35 IMPRESSION: Lungs appear clear throughout. No pleural effusion or pneumothorax is seen. The cardiomediastinal silhouette is within the normal range. No significant osseous abnormality is seen. Negative examination. Reading Location: [place] [id number] [place] and lateral chest x-ray was obtained. There are 2 views. On my independent interpretation, lung josé are clear. There is normal cardiac silhouette. Bony thorax is normal. There is no acute process noted. Radiologist also interpreted the x-ray and agrees. Venous duplex of the right lower extremity was obtained. There is no evidence of DVT. Treatment and Re-Evaluation :: Patient was given a DuoNeb aerosol here. Patient was feeling better on reevaluation. Patient was advised of her findings. Patient was instructed to drink plenty of fluids. Patient was instructed to take Tylenol or ibuprofen as needed for any pain or fevers. Patient was instructed to follow-up with her primary care physician in 5 to 7 days. Patient understood and was agreeable with the plan. All questions were answered. Discharge Plan Triage Chief Complaint: Shortness of Breath ED Provider: John Dash Dx/Rx/DC Orders Clinical Impression: Viral upper respiratory tract infection, Nicotine vapor product user, Right calf pain Instructions: ED URI, Viral, No Abx (Adult) Prescriptions: No Action meclizine 25 mg tablet 25 mg PO TID PRN (Reason: dizziness) Qty: 20 0RF fluticasone propionate 50 mcg/actuation spray,suspension 1 spray intranasal BID Qty: 16 0RF Rx Instructions: administer 1 spray into each nostril amitriptyline 10 mg tablet 10 mg PO QHS Primary Care Provider: Veronica Muse NP Referrals: Veronica Muse NP, CLIENT PROGRAM MANAGER-C [Primary Care Provider] - Print Language: Kinyarwanda
--- NOTE | 2025-03-28 12:01 | VDLE_ITS ---
Reason For Study Reason For Study: Pain RIGHT LEFT GSV is normal. CFV is compressible, spontaneous, phasic, competent, CFV is compressible, spontaneous, phasic, competent and demonstrates normal augmentation. and demonstrates normal augmentation. FV is compressible, spontaneous, phasic, competent and demonstrates normal augmentation. POP V is compressible, spontaneous, phasic, competent and demonstrates normal augmentation. T/P Trunk is compressible. PTV is compressible. RT PerV is compressible. Procedure This is a venous duplex using B-mode, color flow and spectral Doppler. Exam performed portable in ED. A preliminary report was called and/or faxed to AMANDA Medina RN. VL/Venous Duplex US, Unilateral Interpretation Summary Deep veins of the right lower extremity are patent and compressible segmentally . There is no evidence of right lower extremity deep vein thrombosis. The right great saphenous vein appears patent a nd compressible segmentally. Ordering Physician: John Dash Referring Physician: Veronica Muse NP Performed By: Jenni Navarrete RVT
[2025-03-28 12:18] VITALS: PULSE 79; RESP 16
[2025-03-28 12:24] LABS: Hematocrit 41.9 % (37-47); Hemoglobin 14.3 g/dL (12.0-15.0); Immature Granulocytes Count 0.010 X10^3/uL (0.0-0.0); Mean Corp Hgb Conc 34.1 g/dL (32-36); Mean Corpuscular Volume 86.7 fL (81-99); Mean Platelet Vol. 10.4 fl (6.2-12.0); NRBC Flagged by Analyzer 0 % (0-5); Platelet Count 215 K/mm3 (150-450); RBC Distribution Width CV 12.7 % (11.6-14.6); RBC Distribution Width SD 40.1 fl (35.1-43.9); Red Blood Count 4.83 M/mm3 (4.2-5.4); White Blood Count 4.4 K/mm3 (4.4-11.0)
--- NOTE | 2025-03-28 12:35 | RAD_ITS ---
PROCEDURE: CHEST PA AND LATERAL 03/28/2025 REASON FOR EXAM: COUGH TECHNIQUE: Procedure Code: RADCXR Modality: DX Procedure: CHEST PA AND LATERAL COMPARISON: None. RAD/Chest PA and Lateral IMPRESSION: Lungs appear clear throughout. No pleural effusion or pneumothorax is seen. The cardiomediastinal silhouette is within the normal range. No significant osseous abnormality is seen. Negative examination. Reading Location: [place] [id number]
[2025-03-28 12:46] LABS: Anion Gap 11 (5-15); BUN 13 mg/dL (4-19); BUN/Creat Ratio 16.1 RATIO (10-20); Calcium,Total 9.6 mg/dL (7.6-11.0); Carbon Dioxide 24.4 mmol/L (21.0-32.0); Chloride 105 mmol/L (98-108); Estimated Creatinine Clearance 111.30 ml/min (50-250); Glucose 89 mg/dL (70-99); Potassium 3.9 mmol/L (3.3-5.1)
[2025-03-28 13:00] VITALS: BP 114/81; PULSE 89; RESP 16; O2SAT 94
[2025-03-28 13:57] VITALS: BP 122/77; PULSE 82; RESP 16; TEMP 36.8; O2SAT 100
== END 2025-03-28 14:03 | disposition home or self-care (01) ==
PROVIDERS: Emergency Provider Emergency Medicine; PCP Nurse Practitioner Primary Care; Visit Provider Emergency Medicine
DX: J06.9 Acute upper respiratory infection, unspecified (principal); F31.81 Bipolar II disorder; M79.661 Pain in right lower leg; F41.1 Generalized anxiety disorder; J45.909 Unspecified asthma, uncomplicated; Z79.51 Long term (current) use of inhaled steroids; Z79.899 Other long term (current) drug therapy; F17.290 Nicotine dependence, other tobacco product, uncomplicated
CPT/HCPCS: 71046; 80048; 85025; 87631; 93971; 94640; 99283; A4216

== ENCOUNTER 2025-04-05 17:36 | Emergency (ER) | payer OTHER, SELFPAY ==
[2025-04-05 17:37] VITALS: BP 138/105; PULSE 133; RESP 16; TEMP 36.9; O2SAT 100; BMI 27.6
--- NOTE | 2025-04-05 17:54 | EKG12_ITS ---
Test Reason : PALP Blood Pressure : */* mmHG Vent. Rate : 82 BPM Atrial Rate : 82 BPM P-R Int : 128 ms QRS Dur : 78 ms QT Int : 362 ms P-R-T Axes : 59 33 49 degrees QTcB Int : 422 ms Normal sinus rhythm with sinus arrhythmia Normal ECG Confirmed by ROGER YOUNGER, ISAAC ([id number]), makeup editor PEDRO DURHAM ([id number]) on 04/08/2025 8:12:44 AM Referred By: CG/ER Confirmed By: ISAAC DURAN MD
[2025-04-05 18:02] LABS: Hematocrit 40.1 % (37-47); Hemoglobin 14.0 g/dL (12.0-15.0); Immature Granulocytes Count 0.020 X10^3/uL (0.0-0.0); Mean Corp Hgb Conc 34.9 g/dL (32-36); Mean Corpuscular Volume 85.0 fL (81-99); Mean Platelet Vol. 10.1 fl (6.2-12.0); NRBC Flagged by Analyzer 0 % (0-5); POSITIVE MORPHOLOGY YES; Platelet Count 213 K/mm3 (150-450); RBC Distribution Width CV 13.0 % (11.6-14.6); RBC Distribution Width SD 40.4 fl (35.1-43.9); Red Blood Count 4.72 M/mm3 (4.2-5.4); White Blood Count 6.7 K/mm3 (4.4-11.0)
[2025-04-05 18:07] LABS: Differential Indicated SCAN CRITERIA MET
[2025-04-05 18:56] LABS: Differential Comment SCANNED
[2025-04-05 19:26] VITALS: BP 143/93; PULSE 81; RESP 15; O2SAT 100
--- NOTE | 2025-04-05 19:30 | RAD_ITS ---
EXAM: XR Chest, 1 View CLINICAL INDICATION: PALPITATIONS TECHNIQUE: Frontal view of the chest. COMPARISON: No relevant prior studies available. FINDINGS: LUNGS AND PLEURAL SPACES: Unremarkable. No consolidation. No pneumothorax. HEART: Unremarkable. No cardiomegaly. MEDIASTINUM: Unremarkable. Normal mediastinal contour. BONES/JOINTS: Unremarkable. No acute fracture. RAD/Chest PA and Lateral IMPRESSION: No acute cardiopulmonary process. Reading Location: [id number]
[2025-04-05 19:34] LABS: Anion Gap 15 (5-15); BUN 9 mg/dL (4-19); BUN/Creat Ratio 13.2 RATIO (10-20); Calcium,Total 9.6 mg/dL (7.6-11.0); Carbon Dioxide 22.1 mmol/L (21.0-32.0); Chloride 101 mmol/L (98-108); Estimated Creatinine Clearance 126.30 ml/min (50-250); Glucose 95 mg/dL (70-99); Potassium 3.9 mmol/L (3.3-5.1)
[2025-04-05 19:46] LABS: D-Dimer Quantitative (DVT/PE) 0.46 FEU/ug/m (0.27-0.49)
[2025-04-05 20:00] VITALS: BP 137/92; PULSE 72; RESP 16; O2SAT 100
[2025-04-05 20:03] LABS: Magnesium 2.4 mg/dL (1.5-2.2)
--- OUTSIDE RECORDS SUMMARY | 2025-04-05 20:08 | XMS RPT_ITS | CCD ---
Author Organization [facility] Care Team Providers Care Sample Tester Grinder Name Role Phone Playl Aden YOUNGER Primary Care Provider Dr. Dennis Recinos Primary Care Provider Dr. Dennis Recinos Referring Provider Dr. Toshia Mendes Attending Provider [phone] Dr. Dennis Recinos Primary Care Provider Dr. Dennis Recinos Referring Provider Dr. Toshia Mendes Attending Provider Dr. Deborah Ochoa Attending Provider Chuy SANDING MACHINE BUFFER, SANDING MACHINE BUFFER-C Monisha Attending Provider [phone] Care Physician, No Primary Primary Care Provider Unavailable Care Physician, No Primary Referring Provider Un available Dr. Dennis Recinos Primary Care Provider Dr. Dennis Recinos Referring Provider Dr. Deborah Ochoa Attending Provider Chuy SANDING MACHINE BUFFER, SANDING MACHINE BUFFER-C Monisha Attending Provider Care Physician, No Primary Primary Care Provider Unavailable Care Physician, No Primary Referring Provider Un available Dr. Leslie Serrano Attending Provider Chuy SANDING MACHINE BUFFER, SANDING MACHINE BUFFER-C Monisha Referring Provider Dr. Dennis Recinos Referring Provider Dr. Deborah Ochoa Attending Provider Lu Dubois Attending Provider Unavailable Dr. Jordan Medellin Attending Provider Dr. Toshia Mendes Attending Provider Care Physician, No Primary Primary Care Provider Unavailable Care Physician, No Primary Referring Provider Un available Chuy SANDING MACHINE BUFFER, SANDING MACHINE BUFFER-Angeline Bearden Attending Provider [phone] Dr. Toshia Mendes Referring Provider [phone] Dr. Toshia Mendes Other Provider TIFFANIE Mcclain Attending Provider Dr. Alfredo Soler Attending Provider TIFFANIE Guy Attending Provider TIFFANIE Guy Admit Provider TIFFANIE Guy Other Provider Dr. Toshia Mendes Admit Provider Tulio MEJIA, JACKIE-Angeline Dela Cruz Attending Provider Aamir Mckeon DO Primary Care Provider Care Physician, No Primary Primary Care Provider Unavailable Care Physician, No Primary Referring Provider Un available TIFFANIE Guy Attending Provider [phone] TIFFANIE Mcclain Attending Provider [phone] NO PRIMARY CARE, MD Primary Care Unavailable TOSHIA SCOTT Referring Unavailab JENNIFER Arroyo Attending Unavailable Unavailable Primary Care Provider UnavailIssac Melgar MD Primary Care Provider Podlogar CERTIFIED DIETARY MANAGER.Veronica MEZA Unavailable [place] CERTIFIED DIETARY MANAGER.Marychuy MEZA Unavailable TRISHA TAN PA-C Attending Unavailable TRISHA TAN PA-C Primary Care Unavailable TRISHA TAN PA-C Primary Care Unavailable CAROL CERTIFIED DIETARY MANAGER-MARIELLE MEZA Attending Unavaila ble [place] CERTIFIED DIETARY MANAGER.Marychuy MEZA Unavailable [place] CERTIFIED DIETARY MANAGER.Marychuy MEZA Unavailable [place] CERTIFIED DIETARY MANAGER.Marychuy MEZA Unavailable ISSAC FERNÁNDEZ Primary Care Unavailab BHARAT Gomez Attending Unavailable ISSAC FERNÁNDEZ Referring Unavailab ISSAC Lock Primary Care Unavailab ISSAC Lock Referring Unavailab ISSAC Lock Primary Care Unavailab ISSAC Lock Primary Care Unavailab ROHAN Antunez Attending Unavailable ISSAC FERNÁNDEZ Referring Unavailab ISSAC Lock Primary Care Unavailab ICTLALI Alcantar Attending Unavailable ISSAC FERNÁNDEZ Primary Care Unavailab TOSHIA Gilliam Attending Unavailable ISSAC FERNÁNDEZ Primary Care Unavailab JAMAL Cain Attending Unavailable ISSAC FERNÁNDEZ Primary Care Unavailab ISSAC Lock Primary Care Unavailab JAMAL Cain Referring Unavailable ISSAC FERNÁNDEZ Primary Care Unavailab MAXINE Jones Attending Unavailable MAXINE ELLIS Referring Unavailable MAXINE ELLIS Referring Unavailable ISSAC FERNÁNDEZ Primary Care Unavailab MAXINE Jones Attending Unavailable ISSAC FERNÁNDEZ Primary Care Unavailab JAMAL Cain Attending Unavailable ISSAC FERNÁNDEZ Attending Unavailab ISSAC Lock Primary Care Unavailab le VERONICA MUSE Referring Unavailable ISSAC FERNÁNDEZ Primary Care Unavailab ISSAC Lock Referring Unavailab ISSAC Lock Primary Care Unavailab CITLALI Alcantar Attending Unavailable MAXINE ELLIS Referring Unavailable MAXINE ELLIS Attending Unavailable ISSAC FERNÁNDEZ Primary Care Unavailab ISSAC Lock Primary Care Unavailab ISSAC Lock Primary Care Unavailab SIERRA Weber Attending Unavailable VERONICA MUSE Referring Unavailable ISSAC FERNÁNDEZ Primary Care Unavailab ISSAC Lock Primary Care Unavailab ROHAN Antunez Attending Unavailable VERONICA MUSE Attending Unavailable ISSAC FERNÁNDEZ Primary Care Unavailab ISSAC Lock Referring Unavailab ISSAC Lock Primary Care Unavailab ISSAC Lock Primary Care Unavailab CITLALI Alcantar Referring Unavailable ISSAC FERNÁNDEZ Attending Unavailab ISSAC Lock Primary Care Unavailab ISSAC Lock Attending Unavailab ISSAC Lock Primary Care Unavailab ISSAC Lock Primary Care Unavailab cristina SANTOS SOLER Referring Unavailable ISSAC FERNÁNDEZ Primary Care Unavailab MAXINE Jones Attending Unavailable ISSAC FERNÁNDEZ Primary Care Unavailab MAXINE Jones Attending Unavailable MAXINE ELLIS Referring Unavailable ISSAC FERNÁNDEZ Primary Care Unavailab le CALEB, MAXINE Yung Referring Unavailable MAXINE ELLIS Attending Unavailable PODVERONICA DOTSON Attending Unavailable ISSAC FERNÁNDEZ Primary Care Unavailab Lu Milligan Attending Unavailable Podlogar SANDING MACHINE BUFFER, Veronica Primary Care Unavailable Lu Mcclain Attending Unavailable Lu Mcclain Referring Unavailable Podlogar SANDING MACHINE BUFFER, Veronica Primary Care Unavailable Av Wolfe Attending Unavailable Podlogar SANDING MACHINE BUFFER, Veronica Primary Care Unavailable Podlogar SANDING MACHINE BUFFER, Veronica Primary Care Unavailable John Dash Attending Unavailable Lu Mcclain Attending Unavailable Lu Mcclain Referring Unavailable Podlogar SANDING MACHINE BUFFER, Veronica Primary Care Unavailable Tulio SANDING MACHINE BUFFER, Lanie Attending Unavailable Care Physician, No Primary Referring Unava ilable Care Physician, No Primary Primary Care Unava ilable Lu Mcclain Attending Unavailable Care Physician, No Primary Primary Care Unava ilable Care Physician, No Primary Referring Unava ilable [place] SANDING MACHINE BUFFER, Lanie Attending Unavailable Care Physician, No Primary Referring Unava ilable Care Physician, No Primary Primary Care Unava ilable Podlogar SANDING MACHINE BUFFER, Veronica Referring Unavailable Podlogar SANDING MACHINE BUFFER, Veronica Primary Care Unavailable Chriss Dumont Attending Unavailable Lu Mcclain Attending Unavailable Care Physician, No Primary Referring Unava ilable Podlogar SANDING MACHINE BUFFER, Veronica Primary Care Unavailable Lu Mcclain Attending Unavailable Care Physician, No Primary Referring Unava ilable Care Physician, No Primary Primary Care Unava ilable Podlogar SANDING MACHINE BUFFER, Veronica Primary Care Unavailable John Zepeda Attending Unavailable Tulio SANDING MACHINE BUFFER, Lanie Attending Unavailable Care Physician, No Primary Referring Unava ilable Care Physician, No Primary Primary Care Unava ilable Podlogar SANDING MACHINE BUFFER, Veronica Primary Care Unavailable Lu Mcclain Referring Unavailable Lu Mcclain Attending Unavailable Allergies Allergy Classification Reported Allergen(s) Allergy Type Date of Onset Reaction(s) Facility (20 sources) Citalopram; Translations: [CITALOPRAM] Drug Allergy 4 Other: See Comments [facility] (20 sources) Escitalopram; Translations: [ESCITALOPRAM] Drug Allergy 4 Rash [facility] (1 source) Citalopram Drug Allergy 5 [facility] (1 source) Escitalopram Drug Allergy 5 [facility] Medications Current Medications Medication Drug Class(es) Dates Sig (Normalized) Sig (Original) amitriptyline hydrochloride 25 mg oral tablet (20 sources) Tricyclic Antidepressant Start: 03-21-2025 End: 05-20-2025 take 1 tablet by mouth once daily at bedtime amitriptyline (ELAVIL) 25 mg tablet Take 1 tablet by mouth daily at bedtime. 30 tablet 1 03/21/2025 05/20/2025 Active Start: 01-25-2025 End: 04-25-2025 take 1 tablet by mouth once daily at bedtime amitriptyline (ELAVIL) 10 mg tablet Take 1 tablet by mouth daily at bedtime. 30 tablet 2 01/25/2025 03/21/2025 Discontinued amoxicillin 500 mg oral capsule (5 sources) Penicillin-class Antibacterial Start: 02-10-2025 End: 02-20-2025 take 1 capsule by mouth twice daily amoxicillin (AMOXIL) 500 mg capsule Take 1 capsule by mouth two times a day for 10 days. 20 capsule 02/10/2025 02/20/2025 Active drospirenone / Ethinyl Estradiol (4 sources) Progestin, Estrogen Start: 06-25-2019 End: 01-21-2024 GIANVI, 28, 3-0.02 mg per tablet Start: 06-25-2019 GIANVI, 28, 3- 0.02 mg per tablet eletriptan 20 mg oral tablet (9 sources) Serotonin-1b and Serotonin-1d Receptor Agonist Start: 03-14-2025 eletriptan (RELPAX) 20 mg tablet Take 1 tablet by mouth as needed. at the onset of migraine headache. 10 tablet 2 03/14/2025 Active fluticasone propionate 0.05 mg/actuat metered dose nasal spray (20 sources) Corticosteroid Start: 02-08-2025 fluticasone (FLONASE) 50 mcg/actuation nasal spray 02/08/2025 Active Start: 08-27-2021 End: 01-21-2024 take 2 puff(s) by inhalation twice daily fluticasone (FLOVENT HFA) 110 mcg/actuation inhaler Inhale 2 Puffs as instructed twice daily. 1 Inhaler 5 08/27/2021 01/21/2024 Discontinued Comment on above: Inhale 2 Puffs as in structed twice daily. hydrOXYzine pamoate 50 mg oral capsule (6 sources) Antihistamine Start: 2 take 1 capsule by mouth twice daily Hydroxyzine Pamoate (Vistaril) 50 mg capsule Active 50 MG PO TWICE A DAY 60 May 13, 2022 12:00am Multivit 90-Olcm-Hllkqa 1-Dha (Pnv-Dha) 27 mg iron-1 mg -300 mg capsule (10 sources) Start: 2 take 1 capsule by mouth once daily Multivit 40-Anzh-Drpiky 1-Dha (Pnv-Dha) 27 mg iron-1 mg -300 mg capsule Active 1 CAP PO DAILY May 11, 2022 12:00am Start: 05-11-2022 take 1 capsule by mo [facility] once daily Multivit 15-Rteu-Ikddmc 1-Dha (Pnv-Dha) 27 mg iron-1 mg -300 mg capsule Active 1 CAP PO DAILY May 10, 2022 11:00pm Start: 05-11-2022 Multivit 47-Ir on-Folate 1-Dha (Pnv-Dha) 27 mg iron-1 mg -300 mg capsule Active CAP PO May 11, 2022 12:00am pantoprazole 20 mg delayed release oral tablet (14 sources) Proton Pump Inhibitor Start: 03-03-2025 End: 04-02-2025 take 1 tablet by mouth once daily pantoprazole DR (PROTONIX) 20 mg tablet Take 1 tablet by mouth once daily. 30 tablet 03/03/2025 Active polymyxin b [id number] unt/ml / trimethoprim 1 mg/ml ophthalmic solution (2 sources) Dihydrofolate Reductase Inhibitor Antibacterial, Polymyxin-class Antibacterial Start: 01-21-2024 End: 01-28-2024 take 2 drop(s) into the eye(s) every six hours trimethoprim-polymyx in (POLYTRIM) 10,000 unit- 1 mg/mL ophthalmic solution Indications: Acute conjunctivitis of both eyes, unspecified acute conjunctivitis type Use 2 Drops in both eyes every 6 hours for 7 days. 10 mL 0 01/21/2024 01/28/2024 Active sertraline 100 mg oral tablet (20 sources) Serotonin Reuptake Inhibitor Start: 08-14-2024 End: 10-13-2024 take 1 tablet by mouth once daily sertraline (ZOLOFT) 100 mg tablet Take 1 tablet by mouth once daily. 30 tablet 1 08/14/2024 10/13/2024 Active Start: 05-17-2024 End: 09-24-2024 take 1 tablet by mouth once daily sertraline (ZOLOFT) 50 mg tablet Take 1 tablet by mouth once daily. 30 tablet 1 07/26/2024 08/14/2024 Discontinued Start: 08-27-2021 End: 01-21-2024 take 1 tablet by mouth once daily sertraline (ZOLOFT) 50 mg tablet Take 1 tablet by mouth once daily. 30 tablet 1 08/27/2021 01/21/2024 Discontinued Comment on above: Take 1 tablet by celso once daily. Completed/Discontinued Medications Medication Drug Class(es) Dates Sig (Normalized) Sig (Original) [id number] 200 actuat albuterol 0.09 mg/actuat metered dose inhaler (20 sources) beta2-Adrenergic Agonist Start: 08-27-2021 End: 05-17-2024 take 2 puff(s) by inhalation every six hours as needed for wheezing albuterol HFA (PROVENTIL HFA, VENTOLIN HFA) 90 mcg/actuation inhaler Inhale 2 Puffs as instructed every 6 hours as needed for wheezing/shortness of breath. Administer using a spacer. 1 Inhaler 2 08/27/2021 05/17/2024 Discontinued (Discontinued by Patient) Start: 11-02-2017 Albuterol Sulf ate (Ventolin Hfa (Sp)) 1 INHALER inhaler Active 1 - 2 PUFF INHALATION EVERY 6 HOURS NEEDED November 01, 2017 11:00pm Start: 11-02-2017 Albuterol Sulf ate (Ventolin Hfa (Sp)) 1 INHALER inhaler Active 1 - 2 PUFF INHALATION EVERY 6 HOURS NEEDED November 02, 2017 12:00am Comment on above: Inhale 2 Puffs as in structed every 6 hours as needed for wheezing/shortness of breath. Administer using a spacer. amoxicillin 875 mg / clavulanate 125 mg oral tablet (5 sources) Penicillin-class Antibacterial Start: End: take 1 tablet by mouth twice daily amoxicillin-clavulana te potassium (AUGMENTIN) 875-125 mg per tablet Indications: Rhinosinusitis Take 1 tablet by mouth two times a day for 7 days. 14 tablet 02/07/2025 02/10/2025 Discontinued (Changing Therapy/Dosage Form) Start: 05-14-2024 End: 05-21-2024 take 1 tablet by mouth twice daily amoxicillin-clavulanate potassium (AUGMENTIN) 875-125 mg per tablet Indications: Sinobronchitis Take 1 tablet by mouth two times a day for 7 days. 14 tablet 05/14/2024 05/21/2024 Start: 05-25-2023 End: 06-01-2023 take 1 tablet by mouth twice daily amoxicillin-clavulanate potassium (AUGMENTIN) 875-125 mg per tablet Take 1 tablet by mouth two times a day for 7 days. 14 tablet 0 05/25/2023 06/01/2023 Active Comment on above: Take 1 tablet by celso th two times a day for 7 days. Blood-Glucose Meter (True Metrix Air Glucose Meter) [facility] [place] (10 sources) Start: 11-03-2022 End: 01-04-2023 Blood-Glucose Meter (True Metrix Air Glucose Meter) [facility] [place] Discontinued 0 .ROUTE .MEDSUPPLY November 03, 2022 9:46am January 04, 2023 2:31pm As directed- fasting and 2 hr post meals Start: 11-03-2022 End: 01-04-2023 Blood-Glucose Meter (True Me trix Air Glucose Meter) [facility] [place] Discontinued 0 .ROUTE .MEDSUPPLY November 03, 2022 10:46am January 04, 2023 3:31pm As directed- fasting and 2 hr post meals Start: 11-03-2022 Blood-Glucose Meter (True Metrix Air Glucose Meter) [facility] [place] Active 0 .ROUTE .MEDSUPPLY 1 November 03, 2022 10:46am As directed- fasting and 2 hr post meals Start: 11-03-2022 End: 11-03-2022 Blood-Glucose Meter (True Me trix Air Glucose Meter) [facility] [place] Discontinued 0 .ROUTE .MEDSUPPLY 1 November 02, 2022 11:00pm November 03, 2022 9:47am As directed Start: 11-03-2022 End: 11-03-2022 Blood-Glucose Meter (True Me trix Air Glucose Meter) [facility] [place] Discontinued 0 .ROUTE .MEDSUPPLY November 03, 2022 12:00am November 03, 2022 10:47am As directed escitalopram 10 mg oral tablet (2 sources) Serotonin Reuptake Inhibitor Start: 03-01-2023 End: 04-01-2023 take 1 tablet by mouth once daily Escitalopram Oxalate (Lexapro) 10 mg tablet Discontinued 10 MG PO DAILY March 01, 2023 10:13am April 01, 2023 2:22pm Start: 01-28-2023 End: 02-23-2023 take 1 tablet by mouth once daily Escitalopram Oxalate (Lexapro) 10 mg tablet Discontinued 10 MG PO DAILY January 27, 2023 11:00pm February 23, 2023 8:59am 21 day ethinyl estradiol 0.269137 mg/hr / etonogestrel 0.005 mg/hr vaginal system (1 source) Progestin, Estrogen Start: 02-23-2023 End: 04-01-2023 Etonogestrel-Ethinyl Estradiol (Nuvaring) 0.12-0.015 mg/24 hr ring Discontinued 1 VAG RING VAGINAL every 4 weeks February 22, 2023 11:00pm April 01, 2023 2:22pm leave in place for 3 weeks of a 4-week cycle Norethindrone Ac-Eth Estradiol (1 source) Estrogen Start: 03-23-2023 End: 04-01-2023 take 0.05 ug by mouth once daily Norethindrone Ac-Eth Estradiol (June08/06 (21)) 1-20 mg-mcg tablet Discontinued 1 TABLET PO DAILY March 22, 2023 11:00pm April 01, 2023 2:22pm ferrous sulfate 325 mg oral tablet (4 sources) Start: 01-28-2023 End: 03-21-2024 ferrous sulfate 325 mg (65 mg iron) tablet Take by mouth. 01/28/2023 03/21/2024 Discontinued (Course of therapy completed) FLUoxetine 20 mg oral capsule (20 sources) Serotonin Reuptake Inhibitor Start: 10-18-2024 End: 05-04-2025 take 1 capsule by mouth once daily FLUoxetine (PROZAC) 20 mg capsule Take 1 capsule by mouth once daily. 30 capsule 1 03/05/2025 03/21/2025 Discontinued (Discontinued by Patient) 3 ml insulin degludec 200 unt/ml pen injector (4 sources) Insulin Analog Start: 11-16-2022 End: 01-04-2023 Insulin Degludec (Tresiba Flextouch U-200) 200 unit/mL (3 mL) insulin pen Discontinued 40 UNIT SC DAILY November 15, 2022 11:00pm January 04, 2023 2:31pm meclizine hydrochloride 25 mg oral tablet (8 sources) Antiemetic Start: 02-08-2025 End: 03-05-2025 meclizine (ANTIVERT) 25 mg tab 02/08/2025 03/05/2025 Discontinued (Course of therapy completed) 1 ml medroxyPROGESTERone acetate 150 mg/ml injection (1 source) Progestin Start: 01-28-2023 End: 02-23-2023 inject 150 mg by intramuscular injection every three months Medroxyprogesterone (Depo-Provera) 150 mg/mL suspension Discontinued 150 MG IM every 3 months January 27, 2023 11:00pm February 23, 2023 8:59am metroNIDAZOLE 500 mg oral tablet (4 sources) Nitroimidazole Antimicrobial Start: 01-06-2023 End: 01-21-2023 take 500 mg by mouth twice daily Metronidazole Discontinued 500 MG PO TWICE A DAY 14 January 13, 2023 11:00pm January 20, 2023 11:03pm Start: 11-17-2021 End: 11-24-2021 take 1 tablet by mouth twice daily metroNIDAZOLE (FLAGYL) 500 mg tablet Take 1 tablet by mouth twice daily for 7 days. 14 tablet 0 11/17/2021 11/24/2021 Active Comment on above: Take 1 tablet by celso th twice daily for 7 days. nitrofurantoin, macrocrystals 25 mg / nitrofurantoin, monohydrate 75 mg oral capsule (2 sources) Nitrofuran Antibacterial Start: 2022 End: 2022 take 1 capsule by mouth twice daily at mealtime Nitrofurantoin Monohyd/M-Cryst (Macrobid) 100 mg capsule Discontinued 100 MG PO TWICE A DAY 14 7 January 03, 2023 11:00pm January 06, 2023 2:44pm must administer with a meal/food ondansetron 4 mg disintegrating oral tablet (16 sources) Serotonin-3 Receptor Antagonist Start: 2021 End: 2022 take 4 mg by mouth every eight hours Ondansetron Discontinued 4 MG PO Q8H October 19, 2022 2:13pm January 28, 2023 12:17pm prochlorperazine 10 mg oral tablet (9 sources) Phenothiazine Start: 2021 End: 2022 take 1 tablet by mouth every eight hours Prochlorperazine Maleate (Compazine) 10 mg tablet Discontinued 10 MG PO Q8H June 14, 2022 12:00am October 08, 2022 1:40pm propranolol hydrochloride 40 mg oral tablet (5 sources) beta-Adrenergic Nicole Start: 2024 End: 2024 take 1 tablet by mouth twice daily propranolol (INDERAL) 40 mg tablet Indications: Migraine with aura, intractable, without status migrainosus Take 1 tablet by mouth two times a day. 180 tablet 12/27/2024 01/25/2025 Discontinued (Course of therapy completed) SUMAtriptan 50 mg oral tablet (20 sources) Serotonin-1b and Serotonin-1d Receptor Agonist Start: 2024 End: 2024 take 1 tablet by mouth every two hours as needed for headache SUMAtriptan (IMITREX) 50 mg tablet Take 1 tablet by mouth as needed for migraine headache (see administration instructions). May repeat dose after 2 hours if needed. Maximum daily dose is 200 mg per day. 9 tablet 3 11/30/2024 03/14/2025 Discontinued zinc gluconate 100 mg oral tablet (10 sources) Start: 2022 End: 2023 Zinc Gluconate 100 mg tab Take by mouth. 01/28/2023 05/17/2024 Discontinued (Discontinued by Patient) Problems Active Problems Problem Classification Problem Date Documented Date Episodic/Chronic Acute posthemorrhagic anemia (5 sources) Acute posthemorrhagic anemia; Translations: [Acute posthemorrhagic anemia] 12-17-2022 Episodic Administrative/social admission (1 source) Stress; Translations: [Other specified problems related to psychosocial circumstances] 10-19-2024 Episodic Anxiety disorders (20 sources) Generalized anxiety disorder; Translations: [Generalized anxiety disorder] Onset: 08-04-2021 08-04-2021 Chronic Asthma (20 sources) Uncomplicated mild persistent asthma; Translations: [Mild persistent asthma, uncomplicated] Onset: 09-27-2016 08-27-2021 Chronic Blindness and vision defects (2 sources) Blurring of visual image; Translations: [Other visual disturbances] Onset: 01-25-2025 01-25-2025 Episodic Conditions associated with dizziness or vertigo (8 sources) Dizziness and giddiness; Translations: [Dizziness and giddiness] Onset: 10-08-2024 01-25-2025 Episodic Contraceptive and procreative management (3 sources) Patient encounter status; Translations: [Encounter for contraceptive management, unspecified] 06-17-2023 Episodic Diabetes or abnormal glucose tolerance complicating ; childbirth; or the puerperium (20 sources) Gestational diabetes mellitus; Translations: [Gestational diabetes mellitus in , unspecified control] Onset: 03-20-2025 11-03-2022 Episodic Esophageal disorders (2 sources) Gastroesophageal reflux disease; Translations: [Gastro-esophageal reflux disease without esophagitis] Onset: 03-05-2025 03-05-2025 Chronic Headache; including migraine (20 sources) Migraine with aura; Translations: [Migraine with aura, not intractable, without status migrainosus] Onset: 12-27-2024 11-13-2022 Chronic Hemorrhage during ; abruptio placenta; placenta previa (12 sources) Antepartum hemorrhage; Translations: [Hemorrhage in early , unspecified] 07-20-2022 Episodic Immunizations and screening for infectious disease (4 sources) Vaccination needed; Translations: [Encounter for immunization] Onset: 11-01-2024 10-24-2024 Episodic Inflammation; infection of eye (except that caused by tuberculosis or sexually transmitteddisease) (2 sources) Acute conjunctivitis of bilateral eyes; Translations: [Unspecified acute conjunctivitis, bilateral] 01-21-2024 Episodic Mood disorders (20 sources) Depressive disorder; Translations: [Depression] Onset: 08-04-2021 08-04-2021 Chronic Nonmalignant breast conditions (1 source) Mastodynia; Translations: [Mastodynia] Onset: 04-03-2025 Episodic Other aftercare (3 sources) Long-term current use of drug therapy; Translations: [Other sales stock associate (current) drug therapy] 08-14-2024 Episodic Other aftercare (1 source) Other sales stock associate (current) drug therapy; Translations: [Encounter for long-term (current) use of medications] Onset: 03-21-2025 Episodic Other circulatory disease (1 source) Low blood pressure; Translations: [Hypotension, unspecified] 03-22-2025 Episodic Other circulatory disease (1 source) Hypotension, unspecified; Translations: [Hypotension, unspecified hypotension type] Onset: 03-22-2025 Episodic Other complications of ; puerperium affecting management of mother (3 sources) hemorrhage; Translations: [Other immediate hemorrhage] 12-16-2022 Episodic Other complications of ; puerperium affecting management of mother (2 sources) Other immediate hemorrhage; Translations: [Other immediate hemorrhage, unspecified as to episode of care or not applicable] 12-17-2022 Episodic Other complications of ; puerperium affecting management of mother (1 source) Other disorders of ; Translations: [Engorgement of breasts associated with childbirth, condition or complication] 12-19-2022 Episodic Other complications of (11 sources) High risk ; Translations: [Supervision of high risk , unspecified, unspecified trimester] 07-20-2022 Episodic Other complications of (20 sources) Supervision of high risk , unspecified, unspecified trimester; Translations: [Supervision of unspecified high-risk ] Episodic Other complications of (4 sources) Group B Streptococcus carrier; Translations: [Streptococcus B carrier state complicating ] 12-06-2022 Episodic Other complications of (9 sources) Streptococcus B carrier state complicating ; Translations: [Supervision of other high-risk ] 12-07-2022 Episodic Other complications of (1 source) History of gestational diabetes mellitus; Translations: [Supervision of with other poor reproductive or obstetric history, unspecified trimester] 07-08-2023 Episodic Other complications of (1 source) Finding of pattern of ; Translations: [Supervision of other high risk pregnancies, unspecified trimester] 07-08-2023 Episodic Other complications of (1 source) Supervision of with other poor reproductive or obstetric history, unspecified trimester; Translations: [ with other poor obstetric history] 07-08-2023 Episodic Other complications of (1 source) Supervision of other high risk pregnancies, unspecified trimester; Translations: [Supervision of other high-risk ] 07-08-2023 Episodic Other complications of (5 sources) Other mental disorders complicating the puerperium; Translations: [Mental disorders of mother, condition or complication] Onset: 05-17-2024 05-23-2024 Episodic Other connective tissue disease (1 source) Swelling of hand; Translations: [Other specified soft tissue disorders] Episodic Other connective tissue disease (1 source) Pain in right lower limb; Translations: [Pain in right leg] 03-28-2025 Episodic Other connective tissue disease (1 source) Pain in right leg; Translations: [Right leg pain] Onset: 03-28-2025 Episodic Other ear and sense organ disorders (1 source) Impacted cerumen in right ear; Translations: [Impacted cerumen, right ear] 02-07-2025 Episodic Other ear and sense organ disorders (1 source) Impacted cerumen, right ear; Translations: [Impacted cerumen of right ear] Onset: 02-07-2025 Episodic Other female genital disorders (1 source) Other specified noninflammatory disorders of vagina; Translations: [Leukorrhea, not specified as infective] 01-04-2023 Episodic Other lower respiratory disease (1 source) Cough; Translations: [Acute cough] 05-14-2024 Episodic Other lower respiratory disease (1 source) Dyspnea; Translations: [Shortness of breath] 03-28-2025 Episodic Other lower respiratory disease (2 sources) Shortness of breath; Translations: [SOB (shortness of breath)] Onset: 03-28-2025 Episodic Other nervous system disorders (5 sources) Demyelinating disease of central nervous system; Translations: [Demyelinating disease of central nervous system, unspecified] 01-25-2025 Chronic Other nervous system disorders (1 source) Demyelinating disease of central nervous system, unspecified; Translations: [Demyelinating disease of central nervous system (HCC)] Onset: 01-31-2025 Chronic Other nervous system disorders (5 sources) Unsteady when standing; Translations: [Unsteadiness on feet] 01-25-2025 Episodic Other nervous system disorders (5 sources) Numbness and tingling sensation of skin; Translations: [Anesthesia of skin] 01-25-2025 Episodic Other nervous system disorders (1 source) Unsteadiness on feet; Translations: [Unsteadiness on feet] Onset: 01-31-2025 Episodic Other nervous system disorders (1 source) Anesthesia of skin; Translations: [Numbness and tingling] Onset: 01-31-2025 Episodic Other nervous system disorders (1 source) Paresthesia of skin; Translations: [Numbness and tingling] Onset: 01-31-2025 Episodic Other screening for suspected conditions (not mental disorders or infectious disease) (3 sources) Encounter for test, result unknown; Translations: [Encounter for screening for malignant neoplasm of cervix] Onset: 12-27-2024 Episodic Other upper respiratory disease (1 source) Nasal congestion; Translations: [Nasal congestion] 03-28-2025 Episodic Other upper respiratory disease (1 source) Nasal congestion; Translations: [Nasal congestion] Onset: 03-28-2025 Episodic Other upper respiratory infections (4 sources) Bacterial sinusitis; Translations: [Chronic sinusitis, unspecified] Onset: 02-07-2025 05-25-2023 Chronic Other upper respiratory infections (9 sources) Sore throat symptom; Translations: [Acute pharyngitis, unspecified] Onset: 02-10-2025 01-27-2024 Episodic Residual codes; unclassified (1 source) FH: Thyroid disorder; Translations: [Family history of other endocrine, nutritional and metabolic diseases] 02-18-2025 Episodic Residual codes; unclassified (1 source) Family history of other endocrine, nutritional and metabolic diseases; Translations: [Family history of thyroid disease] Onset: 02-18-2025 Episodic Screening and history of mental health and substance abuse codes (2 sources) Ex-smoker; Translations: [Personal history of nicotine dependence] 06-17-2023 Episodic Unclassified (3 sources) NO SHOW 06-28-2024 Unclassified (1 source) Long-term current use of drug therapy 03-25-2025 Varicose veins of lower extremity (2 sources) Varicose veins of lower extremity; Translations: [Asymptomatic varicose veins of right lower extremity] Onset: 03-22-2025 03-22-2025 Episodic Viral infection (1 source) Viral disease; Translations: [Viral infection, unspecified] 02-14-2025 Episodic Past or Other Problems Problem Classification Problem Date Documented Da te Episodic/Chronic Abdominal pain (2 sources) Pelvic and perineal pain; Translations: [Pelvic and perineal pain] Onset: 11-12-2024 Episodic Acquired foot deformities (20 sources) Talipes planus; Translations: [Flat foot [pes planus] (acquired), unspecified foot] Onset: 07-20-2017 07-20-2017 Episodic Cardiac dysrhythmias (20 sources) Palpitations; Translations: [Palpitations] Onset: 12-28-2024 09-22-2022 Episodic Genitourinary symptoms and ill-defined conditions (5 sources) Dysuria; Translations: [Dysuria] Onset: 11-06-2024 01-04-2023 Episodic Other and delivery including normal (20 sources) ; Translations: [Encounter for supervision of normal , unspecified, unspecified trimester] Onset: 11-30-2024 Episodic Other skin disorders (20 sources) Acne vulgaris; Translations: [Acne vulgaris] Onset: 08-18-2015 08-18-2015 Episodic Residual codes; unclassified (20 sources) Influenza vaccination declined; Translations: [Immunization not carried out because of patient refusal] Onset: 07-20-2017 07-20-2017 Episodic Spondylosis; intervertebral disc disorders; other back problems (2 sources) Lumbago with sciatica; Translations: [Lumbago with sciatica, unspecified side] Onset: 11-06-2024 11-06-2024 Episodic Results Test Name Value Interpretation Reference Range Facility Urgent Care Visit Reporton 0 04-03-2025 Urgent Care Visit Report [facility] [address], [address] [place] [address] OFFICE VISIT Date of Service: 04/03/25 MR#: [id number] Acct: [id number] Name: SHAWANDA BRINK Rep #: [id number] : 2005 Provider: JENNIFER Boateng Age/Sex: 19/F Location[place] [facility] Status: Signed Intake Vital Signs 03/28/25 11:10 04/03/25 10:15 Height 5 ft 4 in 5 ft 4 in Weight: 159 lb BMI 27.3 BP 110/66 Position Sitting Pulse 82 Temp 98.3 F Temp Source Oral Pulse Oximetry (%) 99 Oxygen Delivery Method room air Intake Visit Reasons: CONCERN FOR BELLY BUTTON INFECTION Chief Complaint: bellu button infection Accompanied by: Self Allergies citalopram (From Celexa) Allergy (Verified 04/03/25 10:12) Other escitalopram (From Lexapro) Allergy (Verified 04/03/25 10:12) Other Medications ???Medication ???Instructions ???Recorded ???Confirmed ???Type amitriptyline 10 mg tablet 10 mg PO QHS 02/08/25 04/03/25 His tory fluticasone propionate 50 1 spray intranasal BID #16 grams 0 02/08/25 03/21/25 Rx mcg/actuation nasal spray,suspension meclizine 25 mg tablet 25 mg PO TID PRN dizziness #20 tab s 02/08/25 03/28/25 Rx loratadine 10 mg tablet (Claritin) 10 mg PO QDAY 04/03/25 04/03/25 History magnesium gluconate 12.5 mg 240 mg PO ONCE 04/03/25 04/03/25 H istory magnesium (250 mg) tablet mecobalamin (vitamin B12) 1,000 1,000 mcg PO QDAY 04/03/25 5 History mcg chewable tablet mupirocin 2 % topical ointment 1 applic topical BID #22 grams 04/03/25 Rx riboflavin (vitamin B2) 400 mg 400 mg PO QDAY 04/03/25 04/03/25 H istory tablet Nurse's Note: Patient has concerned for belly infection. Patient states this has been going on since Aug. Patient states she has tried anti-fungal cream and she has kept it dry. Patient states that she had greenish wax come out of it. Patient also states that she has pus coming out of it and a bad odor and its sore when she touches it. Patient states she did have a lump on her belly button a couple of months ago but it has gone away. [facility] Medical History (Updated 04/03/25 @ 10:29 by Chriss Alston PA, PA) Navel cellulitis Former smoker Hx of gestational diabetes in prior , currently Vaginal delivery hemorrhage depression Gestational diabetes Panic disorder Generalized anxiety disorder Bipolar 2 disorder Seasonal allergies Contraception management Anemia due to blood loss, acute hemorrhage macrosomia GBS (group B Streptococcus carrier), +RV culture, currently Gestational diabetes Anxiety Palpitations Supervision of high risk , antepartum Asthma Depression Family History Grandmother Cervical cancer, Onset Age: 40 maternal Family history of recurrent miscarriage maternal- 2 miscarriages Grandfather Myocardial infarction Father Heart disease Mother Family history of recurrent miscarriage 2 miscarriages Aunt Family history of recurrent miscarriage Maternal- 2 miscarriages Social History (Updated 03/28/25 @ 11:[address] John Dash, DO) adopted: No household members: significant other and children housing: house number of children: 1 current occupational status: employed current occupation: Will be starting at [employer] current occupational exposures/hazards: No pets and animals: No (not managing litterbox while ) history of recent travel: No ([place]) sexually active: Yes Smoking Status: Former smoker Electronic Cigarette Use: with nicotine how long ago did patient quit smoking: Quit 04/08 alcohol intake: never substance use type: does not use well-balanced diet: daily or most days caffeine: No (ocassional) eating out: 1-3 times/week during the past year weight has: increased > 10 lbs what type of physical activity do you participate in: none jenni/rastafari: Ep[employer]opalian seatbelt use: always do you feel safe at home: Yes additional social history: [employer] HPI HPI Chief Complaint: bellu button infection Details: SHAWANDA BRINK, is a 19 F who presents to the office today for initial evaluation at the [facility] clinic for persistent erythema, swelling, tenderness to the umbilicus of unknown etiology for approximately 5 months, noting she has used antifungal cream topically twice a day for 6 weeks without improvement. No localized discharge from the same. PMH NC. No [id number]-ocd-[id number] oral medications taken to assist. No other associated symptoms and no other alleviating/aggravating factors. ROS Const Constitutional: No other (As above) Exam Const General: cooperative, healthy appearing and no acute distress Nutritional Appear (more content not included)... Normal [facility] CNOVon 04-02-2025 CNOV Office Visit (PSWSTR ) SHAWANDA BRINK ([id number]) 1 F Date Time Provider Department 04/02/25 8:00 AM MAXINE ELLIS PSWSTR During your visit today, we recorded the following information about you: Maxine Ellis, CERTIFIED DIETARY MANAGER.[facility] 04/02/2025 8:29 AM Signed Patient did not come in for her follow up appointment with the provider. Referring Provider: MAXINE ELLIS [[id number]] Allergies As of Date: 04/02/2025 Noted Allergy Reaction CELEXA (CITALOPRAM) 03/21/2024 14 - Other: See Comments Comments: Tunnel vision LEXAPRO (ESCITALOPRAM) 03/21/2024 2 - Rash Date Reviewed: 03/28/2025 Reviewed by: Jacqueline Michele MA - Fully Assessed Reason for Visit: No Show [1558] Primary Visit Diagnosis:NO SHOW Prescriptions as of 04/02/2025 - amitriptyline (ELAVIL) 25 mg tablet Take 1 tablet by mouth daily at bedtime. - eletriptan (RELPAX) 20 mg tablet Take 1 tablet by mouth as needed. at the onset of migraine headache. - pantoprazole DR (PROTONIX) 20 mg tablet Take 1 tablet by mouth once daily. - fluticasone (FLONASE) 50 mcg/actuation nasal spray Problem List As Of Date 04/02/2025 Noted Resolved Acne vulgaris [L70.0] 08/18/2015 Mild persistent asthma without complication [J4*09/27/2016 Flat foot [M21.40] 07/20/2017 Influenza vaccine refused [Z28.21] 07/20/2017 Depression [F32.A] 08/04/2021 Generalized anxiety disorder [F41.1] 08/04/2021 Encounter Status:Closed by MAXINE ELLIS on 04/02/25 Normal [facility] Basic Metabolic Profile (BMP )on 03-28-2025 BUN/CRE 16.1 RATIO Normal 10-20 [facility] Comment on above: Performed By: #### L 100.0100, L500.2500 #### [facility] [address] [place], [address] Calcium [Mass/Vol] 9.6 mg/dL Normal 7.6-11.0 [facility] Comment on above: Performed By: #### L 100.0100, L500.2500 #### [facility] [address] [place], [address] Chloride [Moles/Vol] 105 mmol/L Normal 98-108 [facility] Comment on above: Performed By: #### L 100.0100, L500.2500 #### [facility] [address] [place], [address] CO2 [Moles/Vol] 24.4 mmol/L Normal 21.0-32.0 [facility] Comment on above: Performed By: #### L 100.0100, L500.2500 #### [facility] [address] [place], [address] Creatinine [Mass/Vol] 0.78 mg/dL Normal 0.70-1.20 [facility] Comment on above: Performed By: #### L 100.0100, L500.2500 #### [facility] [address] [place], [address] ECRCL 111.30 ml/min Normal 50-250 [facility] Comment on above: Performed By: #### L 100.0100, L500.2500 #### [facility] [address] [place], [address] GAP 11 Normal 5-15 [facility] Comment on above: Performed By: #### L 100.0100, L500.2500 #### [facility] [address] [place], [address] GFR/1.73 sq M.predicted among non-blacks MDRD (S/P/Bld) [Vol rate/Area] 110 mL/min/{1.73_m2} Normal >60 [facility] Comment on above: Result Comment: mL/m in/1.73m2 CKD-EPI Creatinine Equation (2020) Performed By: #### L 100.0100, L500.2500 #### [facility] [address] [place], [address] Glucose [Mass/Vol] 89 mg/dL Normal 70-99 [facility] Comment on above: Performed By: #### L 100.0100, L500.2500 #### [facility] [address] [place], [address] Potassium [Moles/Vol] 3.9 mmol/L Normal 3.3-5.1 [facility] Comment on above: Performed By: #### L 100.0100, L500.2500 #### [facility] [address] [place], [address] Sodium [Moles/Vol] 141 mmol/L Normal 133-145 [facility] Comment on above: Performed By: #### L 100.0100, L500.2500 #### [facility] [address] [place], [address] Urea nitrogen [Mass/Vol] 13 mg/dL Normal 4-19 [facility] Comment on above: Performed By: #### L 100.0100, L500.2500 #### [facility] [address] [place], [address] CBC W/Diff, Automatedon 03-18-2024 Absolute Lymph 0.89 X10 3/uL Normal 0.83-4.51 [facility] Comment on above: Performed By: #### L 100.0100, L500.2500 #### [facility] [address] [place], [address] Absolute Neut 3.0 X10 3/uL Normal 2.0-7.7 [facility] Comment on above: Performed By: #### L 100.0100, L500.2500 #### [facility] [address] [place], [address] Basophils/100 WBC (Bld) 0.5 % Normal 0-1 [facility] Comment on above: Performed By: #### L 100.0100, L500.2500 #### [facility] [address] [place], [address] Eosinophils/100 WBC (Bld) 2.5 % Normal 0-5 [facility] Comment on above: Performed By: #### L 100.0100, L500.2500 #### [facility] [address] [place], [address] Erythrocyte distribution width (RBC) [Ratio] 12.7 % Normal 11.6-14.6 [facility] Comment on above: Performed By: #### L 100.0100, L500.2500 #### [facility] [address] [place], [address] Hematocrit (Bld) [Volume fraction] 41.9 % Normal 37-47 [facility] Comment on above: Performed By: #### L 100.0100, L500.2500 #### [facility] [address] [place], [address] Hemoglobin (Bld) [Mass/Vol] 14.3 g/dL Normal 12.0-15.0 [facility] Comment on above: Performed By: #### L 100.0100, L500.2500 #### [facility] [address] [place], [address] IG% 0.200 Normal 0.0-0.9 [facility] Comment on above: Result Comment: IG% - Immature Granulocytes (promyelocytes, myelocytes and metamyelocytes) > 1% indicates that a LEFT SHIFT is Present. Performed By: #### L 100.0100, L500.2500 #### [facility] [address] [place], [address] Lymphocytes/100 WBC (Bld) 20.3 % Normal 19-41 [facility] Comment on above: Performed By: #### L 100.0100, L500.2500 #### [facility] [address] [place], [address] MCH (RBC) [Entitic mass] 29.6 pg Normal 27.0-32.0 [facility] Comment on above: Performed By: #### L 100.0100, L500.2500 #### [facility] [address] [place], [address] MCHC (RBC) [Mass/Vol] 34.1 g/dL Normal 32-36 [facility] Comment on above: Performed By: #### L 100.0100, L500.2500 #### [facility] [address] [place], [address] MCV (RBC) [Entitic vol] 86.7 fL Normal 81-99 [facility] Comment on above: Performed By: #### L 100.0100, L500.2500 #### [facility] [address] [place], [address] Monocytes/100 WBC (Bld) 7.7 % Normal 0-10 [facility] Comment on above: Performed By: #### L 100.0100, L500.2500 #### [facility] [address] [place], [address] Neutrophils/100 WBC (Bld) 68.8 % Normal 47-70 [facility] Comment on above: Performed By: #### L 100.0100, L500.2500 #### [facility] [address] [place], [address] Nucleated RBC (Bld) [#/Vol] 0 10*3/uL Normal 0-5 [facility] Comment on above: Performed By: #### L 100.0100, L500.2500 #### [facility] [address] [place], [address] Platelet mean volume (Bld) [Entitic vol] 10.4 fL Normal 6.2-12.0 [facility] Comment on above: Performed By: #### L 100.0100, L500.2500 #### [facility] [address] [place], [address] Platelets (Bld) [#/Vol] 215 10*3/uL Normal 150-450 [facility] Comment on above: Performed By: #### L 100.0100, L500.2500 #### [facility] [address] [place], [address] RBC (Bld) [#/Vol] 4.83 10*6/uL Normal 4.2-5.4 [facility] Comment on above: Performed By: #### L 100.0100, L500.2500 #### [facility] [address] [place], [address] RDW SD 40.1 fl Normal 35.1-43.9 [facility] Comment on above: Performed By: #### L 100.0100, L500.2500 #### [facility] [address] [place], [place], [address] WBC (Bld) [#/Vol] 4.4 10*3/uL Normal 4.4-11.0 [facility] Comment on above: Performed By: #### L 100.0100, L500.2500 #### [facility] [address] [place], [address] CNOVon 03-28-2025 CNOV Office Visit (WOPRAVIN) SHAWANDA BRINK ([id number]) 1 F Date Time Provider Department 03/28/25 10:45 AM BHARAT MOSHER During your visit today, we recorded the following information about you: Temperature Pulse Respiration Blood pressure 98 degrees 75/minute 18/minute 122/96 Weight 72.4 kg Bharat Mosher MD 03/28/2025 11:10 AM Signed [facility] [place] is a 19 year old female. Patient presents with: Dizziness: Sob, nasal congestion, green mucus, sinus pressure x 5 days Patient presents to the urgent care primarily with concern for dizziness. He has been dealing with multiple symptoms for over a month including dizziness, shortness of breath, and right leg tightness. The last 5 days she has had significant worsening of all of her symptoms. She also has new onset of nasal congestion, rhinorrhea, sinus pressure, right ear pain, and scratchy throat. She has mild chest tightness or pressure. She has a mild dry cough. She had a headache 3 days ago. Denies vision change, numbness, weakness, fever, vomiting, diarrhea. She describes the dizziness as a combination of her prior near syncope and heart racing only worse as well as new continuous swaying feeling when she is sitting still; swaying is exacerbated by moving her head. Shortness of breath is increased the last 5 days; she feels dyspneic with conversations. She feels a lump in the back of her right leg which was felt to be a varicose vein when seen by her PCP last week. Her children have bjoe-oshs-thk-mouth disease. 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 She has taken Advil sinus for symptoms as well as routine Claritin. She has been prescribed amitriptyline but has not started it yet. No medication changes. Dizziness Associated symptoms include dizziness. Review of Systems Neurological: Positive for dizziness. Objective BP 122/96 Pulse 75 Temp 36.7 ?C (98 ?F) Resp 18 Wt 72.4 kg (159 lb 9.8 oz) LMP (LMP Unknown) SpO2 99% Yes BMI 27.45 kg/m? Physical Exam Constitutional: General: She is not in acute distress. HENT: Right Ear: Tympanic membrane and ear canal normal. Left Ear: Tympanic membrane and ear canal normal. Nose: Congestion present. Right Sinus: Frontal sinus tenderness present. No maxillary sinus tenderness. Left Sinus: Frontal sinus tenderness present. No maxillary sinus tenderness. Mouth/Throat: Mouth: Mucous membranes are moist. Pharynx: Posterior oropharyngeal erythema present. No oropharyngeal exudate. Eyes: Extraocular Movements: Extraocular movements intact. Conjunctiva/sclera: Conjunctivae normal. Pupils: Pupils are equal, round, and reactive to light. Cardiovascular: Rate and Rhythm: Normal rate and regular rhythm. Heart sounds: No murmur heard. Pulmonary: Effort: No respiratory distress. Breath sounds: No wheezing, rhonchi or rales. Musculoskeletal: Cervical back: Neck supple. Comments: No right popliteal erythema or edema. Medial posterior knee lump not palpable. Lymphadenopathy: Cervical: No cervical adenopathy. Neurological: Mental Status: She is alert. Cranial Nerves: Cranial nerves 2-12 are intact. Motor: No weakness or tremor. Coordination: Coordination normal. Gait: Gait normal. Deep Tendon Reflexes: Reflexes are normal and symmetric. Psychiatric: Mood and Affect: Mood normal. {ASSESSMENT/PLAN: 1. Dizziness - ICD9: 780.4, ICD10: R42 (primary diagnosis) 2. SOB (shortness of breath) - ICD9: 786.05, ICD10: R06.02 3. Nasal congestion - ICD9: 478.19, ICD10: R09.81 4. Right leg pain - ICD9: 729.5, ICD10: M79.604 Suspect 5 days of viral URI. She has had exacerbation and change in concerning symptoms of dizziness, shortness of breath, chest tightness. Considering presence of right leg pain she will go to the ER to have pulmonary embolism ruled out. Bharat Mosher MD Differential Diagnoses - viral URI - Rule out DVT/PE - autonomic dysfunction is more likely for the following reason(s): hypotensive episodes Disposition The patient was other (comment) (referred to [facility] ED). Procedures Allergies As of Date: 03/28/2025 Noted Allergy Reaction CELEXA (CITALOPRAM) 03/21/2024 14 - Other: See Comments Comments: Tunnel vision LEXAPRO (ESCITALOPRAM) 03/21/2024 2 - Rash Date Reviewed: 03/28/2025 Reviewed by: Jacqueline Michele MA - Fully Assessed Reason for Visit: Dizziness [36] Cmt: Sob, nasal congestion, green mucus, sinus pressure x 5 days Primary Visit Diagnosis:Dizziness [R42] Other Visit Diagnoses:SOB (shortness of breath) [R06.02] Nasal congestion [R09.81] Right leg pain [M79.604] Prescriptions as of 03/28/2025 - amitriptyline (ELAVIL) 25 mg tablet Take 1 tablet by mouth daily at bedtime. - eletriptan (RELPAX) 20 mg tablet Take 1 tablet by mouth as needed. at th (more content not included)... Normal [facility] Chest PA and Lateralon 03-28 Chest PA and Lateral [facility] Imaging Services [address] [place], [place] [id number] Chest PA and Lateral MR#: [id number] Acct: [id number] Name: SHAWANDA BRINK Rep #: [id number] : 2005 F 19 From: Kael Gibbs PCP: Veronica Muse, [employer] Status: REG ER Study: Chest PA and Lateral Date of Exam: 03/28/25 Exam# [id number] Ordering Dr: John Dash DO PROCEDURE: CHEST PA AND LATERAL 03/28/2025 REASON FOR EXAM: COUGH TECHNIQUE: Procedure Code: RADCXR Modality: DX Procedure: CHEST PA AND LATERAL COMPARISON: None. RAD/Chest PA and Lateral IMPRESSION: Lungs appear clear throughout. No pleural effusion or pneumothorax is seen. The cardiomediastinal silhouette is within the normal range. No significant osseous abnormality is seen. Negative examination. Reading Location: [place] [address] CC: SANDING MACHINE BUFFER-C Veronica Muse; Dr. John Dash DO Lifter/Driver: Signed Normal [facility] Emergency Department Summary on 03-28-2025 Emergency Department Summary [facility] Medical Records Department [address] [place] [address] Emergency Department Summary 03/28/25 MR#: [id number] Acct: [id number] Name: SHAWANDA BRINK Rep #: [id number] : 2005 19 From: John Dash DO PCP: ZOFIA Farr Status:DEP ER Location: ED HPI History of Present Illness Chief Complaint: Shortness of Breath Informant: patient Onset/Context/Timing Onset: Days (5) Context: gradual Timing: Continuous Worsened by: - (Eating) Relieved by: Nothing Associated Symptoms cough, rhinorrhea, post nasal drip, ear pain, subjective and chills; Negative for fever, sore throat, sweats, clear sputum, white sputum, yellow sputum or green sputum Narrative Narrative: Patient presents with shortness of breath that has been getting worse over the last 5 days. Patient states she also has some dizziness where she feels like everything is spinning. Patient also noted some pain and swelling behind her right knee. Patient states she went to the urgent care and then was referred to the emergency department. Patient denies any fevers but admits to some subjective chills. Patient admits to cough but denies any sputum production. Patient admits to bilateral ear pain and pressure. Patient admits to rhinorrhea and postnasal drainage. [facility] Medical History Former smoker Hx of gestational diabetes in prior , currently Vaginal delivery hemorrhage depression Gestational diabetes Panic disorder Generalized anxiety disorder Bipolar 2 disorder Seasonal allergies Contraception management Anemia due to blood loss, acute hemorrhage macrosomia GBS (group B Streptococcus carrier), +RV culture, currently Gestational diabetes Anxiety Palpitations Supervision of high risk , antepartum Asthma Depression Home Medications ???Medication ???Instructions ???Recorded ???Last Taken ???Type amitriptyline 10 mg tablet 10 mg PO QHS 02/08/25 Unknown Hist ory fluticasone propionate 50 1 spray intranasal BID #16 grams 0 02/08/25 Unknown Rx mcg/actuation nasal spray,suspension meclizine 25 mg tablet 25 mg PO TID PRN dizziness #20 tab s 02/08/25 Unknown Rx Allergy/AdvReac Type Severity Reaction Status Date / Time No Known Allergies Allergy Verified 03/28/25 11:13 Family History Grandmother Cervical cancer, Onset Age: 40 maternal Family history of recurrent miscarriage maternal- 2 miscarriages Grandfather Myocardial infarction Father Heart disease Mother Family history of recurrent miscarriage 2 miscarriages Aunt Family history of recurrent miscarriage Maternal- 2 miscarriages Social History (Updated 03/28/25 @ 11:[address] John Dash, DO) adopted: No household members: significant other and children housing: house number of children: 1 current occupational status: employed current occupation: Will be starting at [employer] current occupational exposures/hazards: No pets and animals: No (not managing litterbox while ) history of recent travel: No ([place]) sexually active: Yes Smoking Status: Former smoker Electronic Cigarette Use: with nicotine how long ago did patient quit smoking: Quit 04/08 alcohol intake: never substance use type: does not use well-balanced diet: daily or most days caffeine: No (ocassional) eating out: 1-3 times/week during the past year weight has: increased > 10 lbs what type of physical activity do you participate in: none jenni/rastafari: Episcopalian seatbelt use: always do you feel safe at home: Yes additional social history: Aura Valderrama Jr[employer] ROS ROS ED Constitutional Constitutional ED: Reports chills; Denies fever(s) Eyes Eyes: Denies blurry vision or change in vision ENT ENT ED: Reports ear pain and rhinorrhea; Denies sore throat Cardiovascular Cardiovascular: Reports chest pain; Denies palpitations Respiratory/Chest Respiratory/Chest: Reports cough and dyspnea Gastrointestinal Gastrointestinal: Denies nausea or vomiting Genitourinary Genitourinary ED: Denies dysuria or hematuria Musculoskeletal Musculoskeletal: Reports neck pain; Denies back pain Integumentary Denies abscess or rash Neurologic Neurologic: Denies headache(s) or weakness Allergic/Immunologic Allergic/Immunologic ED: Denies mouth swelling or urticaria EXAM Physical Exam Const Vital Signs: 03/28/25 11:10 03/28/25 11:30 03/28/25 12:18 Temperature 98.2 F Temperature Source Oral Pulse Rate 79 79 Respiratory Rate 15 16 Respiratory Effort Short of Breath Respiratory Depth Normal Respiratory Pattern Normal Blood Pressure 128 (more content not included)... Normal [facility] Folate SerPl-mCncon 03-28-20 25 Folate [Mass/Vol] ng/mL Normal >4.7 [facility] Comment on above: Order Comment: Speci men Type: BLOOD SPECIMENOrdering Facility: [facility] Address: [address] [place] [address] Result Comment: A re sult of > 20 ng/mL is not necessarily indicative of a pathologic or treatable condition: it reflects a limitation of the test methodology. Assay reference range: 4.8 to 24.2 ng/mL. Suitable for detection of folate deficiency. Reference: Folate III (Folate III) [package insert V 1.0 Maltese]. [facility], [place], [place]: May 2015. Performed By: #### 2 284-8, 3016-3, 2132-9 ####[facility] [id number] [place] [address] [place] M100.678on 03-28-2025 M100.678 COVID ERROR FLUA ERROR FLUB ERROR RSV ERROR SARS-CoV-2 (COVID 19) Negative INFLUENZA A Negative INFLUENZA B Negative RSV PCR Negative Normal [facility] Comment on above: Performed By: #### M 100.678 #### [facility] [address] [place], [place], [id number] TSH SerPl-aCncon 03-28-2025 TSH Qn 0.624 m[IU]/L Normal 0.270-4.200 [facility] Comment on above: Order Comment: Speci men Type: BLOOD SPECIMENOrdering Facility: [facility] Address: [address] [place] [address] Result Comment: If t he patient is , TSH reference range varies by gestational period: First Trimester (weeks 9-12): 0.180-2.990 mIU/L Second Trimester: 0.110-3.980 mIU/L Third Trimester: 0.480-4.710 mIU/L Khoa Hernandez et al. A Practical Approach for the Verifications and Determination of Site- and Trimester-Specific Reference Intervals for Thyroid Function tests in . Thyroid, 2019:29:3:412-420. Macario Choe, et al. 2017 Guidelines of the [place] Thy[employer] for the Diagnosis and Management of Thyroid Disease during and the . Thyroid, 2017:27:3:315-389. Performed By: #### 2 284-8, 3016-3, 2132-9 ####[facility] [id number] [place] [address] [place] Venous Duplex US, Unilateral on 03-28-2025 Venous Duplex US, Unilateral [facility] [address] [facility] [place] [address] Venous Duplex US, Unilateral 03/28/25 1244 MR#: [id number] Acct: [id number] Name: SHAWANDA BRINK Rep #: [id number] : 2005 19 From: John Zepeda MD Attending Dr: Status: DEP ER Ordering Dr: John Dash DO Date: 03/28/25 Location: ED Sex: F C Admitted: Reason For Study Reason For Study: Pain RIGHT LEFT GSV is normal. CFV is compressible, spontaneous, phasic, competent, CFV is compressible, spontaneous, phasic, competent and demonstrates normal augmentation. and demonstrates normal augmentation. FV is compressible, spontaneous, phasic, competent and demonstrates normal augmentation. POP V is compressible, spontaneous, phasic, competent and demonstrates normal augmentation. T/P Trunk is compressible. PTV is compressible. RT PerV is compressible. Procedure This is a venous duplex using B-mode, color flow and spectral Doppler. Exam performed portable in ED. A preliminary report was called and/or faxed to AMANDA Medina RN. VL/Venous Duplex US, Unilateral Interpretation Summary Deep veins of the right lower extremity are patent and compressible segmentally. There is no evidence of right lower extremity deep vein thrombosis. The right great saphenous vein appears patent and compressible segmentally. Ordering Physician: John Dash Referring Physician: Veronica Muse NP Performed By: Jenni Navarrete, YUNG 03/28/25 1453 Date John Zepeda MD CC: ZOFIA Muse; Dr. John Dash, Date Dictated: 03/28/25 1244 Date Transcribed: 03/28/25 145 Lifter/Driver: Signed Normal [facility] Vit B12 [facility] 025 Cobalamin (Vitamin B12) [Mass/Vol] 475 pg/mL Normal 232-1245 [facility] Comment on above: Order Comment: Speci men Type: BLOOD SPECIMENOrdering Facility: [facility] Address: [address] [place] [address] Performed By: #### 2 284-8, 3016-3, 2132-9 ####[facility] [id number] [place] [address] [place] CNPNon 03-27-2025 CNPN Telephone (PSYLME) SHAWANDA BRINK ([id number]) 1 F Date Time Provider Department 03/27/25 TOSHIA HESS During your visit today, we recorded the following information about you: Toshia Hess LPCC 03/27/2025 2:29 PM Signed Behavioral Health Social Work Progress Note Patient identified for [facility] from: PCP [facility] encounter type: Telephone Encounter Attempts to Outreach: 4 attempts Referral made: Psychology - Internal Psychology-Internal referral type: Therapy Final Disposition: Care established with Patient Discharged?: No therapist returned patient's call, left [facility] for patient to return call to scheduled therapy appointment. Toshia Hess LPC-S March 27, 2025 Allergies As of Date: 03/27/2025 Noted Allergy Reaction CELEXA (CITALOPRAM) 03/21/2024 14 - Other: See Comments Comments: Tunnel vision LEXAPRO (ESCITALOPRAM) 03/21/2024 2 - Rash Date Reviewed: 03/22/2025 Reviewed by: Nasima Martin MA - Fully Assessed Reason for Visit: consult [Other] Prescriptions as of 03/27/2025 - amitriptyline (ELAVIL) 25 mg tablet Take 1 tablet by mouth daily at bedtime. - eletriptan (RELPAX) 20 mg tablet Take 1 tablet by mouth as needed. at the onset of migraine headache. - pantoprazole DR (PROTONIX) 20 mg tablet Take 1 tablet by mouth once daily. - fluticasone (FLONASE) 50 mcg/actuation nasal spray Problem List As Of Date 03/27/2025 Noted Resolved Acne vulgaris [L70.0] 08/18/2015 Mild persistent asthma without complication [J4*09/27/2016 Flat foot [M21.40] 07/20/2017 Influenza vaccine refused [Z28.21] 07/20/2017 Depression [F32.A] 08/04/2021 Generalized anxiety disorder [F41.1] 08/04/2021 Encounter Status:Closed by KARINTOSHIA PEREZ on 03/27/25 Normal [facility] PAP I-G w/rfx hrHPV-Aptimaon 03-27-2025 ADEQ Comment Normal . [facility] Comment on above: Order Comment: Speci men Comment: [id number] Specimen Comment: No. of containers..01 ThinPrep Vial Result Comment: Sati sfactory for evaluation. Endocervical and/or squamous metaplastic cells (endocervical component) are present. Performed By: #### L 7400.0353 #### [facility] [address] [place], [place], [id number] COMM . Normal . [facility] Comment on above: Order Comment: Speci men Comment: [id number] Specimen Comment: No. of containers..01 ThinPrep Vial Performed By: #### L 7400.0353 #### [facility] [address] [place], [address] COMMENT Comment Normal . [facility] Comment on above: Order Comment: Speci men Comment: [id number] Specimen Comment: No. of containers..01 ThinPrep Vial Result Comment: This liquid based ThinPrep(R) pap test was screened with the use of an image guided system. Performed By: #### L 7400.0353 #### [facility] [address] [place], [address] DIAG Comment Normal . [facility] Comment on above: Order Comment: Speci men Comment: [id number] Specimen Comment: No. of containers..01 ThinPrep Vial Result Comment: NEGA TIVE FOR INTRAEPITHELIAL LESION OR MALIGNANCY. THIS SPECIMEN WAS RESCREENED PART OF OUR X RAY DEVELOPER PROGRAM. Performed By: #### L 7400.0353 #### [facility] [address] [place], [address] HPV RFLX Comment Normal . [facility] Comment on above: Order Comment: Speci men Comment: [id number] Specimen Comment: No. of containers..01 ThinPrep Vial Result Comment: The HPV DNA reflex criteria were not met with this specimen result therefore, no HPV testing was performed. Performed at: [address] [place] [id number] Underground Utility Locator: Ashley Barton MD, Phone: [phone] Performed By: #### L 7400.0353 #### [facility] [address] [place], [place], [address] PAPSMR Comment Normal . [facility] Comment on above: Order Comment: Speci men Comment: [id number] Specimen Comment: No. of containers..01 ThinPrep Vial Result Comment: The Pap smear is a screening test designed to aid in the detection of premalignant and malignant conditions of the uterine cervix. It is not a diagnostic procedure and should not be used as the sole means of detecting cervical cancer. Both false-positive and false-negative reports do occur. Performed By: #### L 7400.0353 #### [facility] [address] [place], [place], [id number] PERFORM Comment Normal . [facility] Comment on above: Order Comment: Speci men Comment: [id number] Specimen Comment: No. of containers..01 ThinPrep Vial Result Comment: Madelaine Luevano, Supervisory Yarn Sorter (ASCP) Performed By: #### L 7400.0353 #### [facility] [address] [place], [address] QC REV Comment Normal . [facility] Comment on above: Order Comment: Speci men Comment: [id number] Specimen Comment: No. of containers..01 ThinPrep Vial Result Comment: Naomi Dunn, Yarn Sorter (ASCP) Performed By: #### L 7400.0353 #### [facility] [address] [place], [address] [facility] 03-22-2025 [facility] Office Visit (FAMPWS ) SHAWANDA BRINK ([id number]) 1 F Date Time Provider Department 03/22/25 9:00 AM [facility] During your visit today, we recorded the following information about you: Pulse Blood pressure Weight Height 84/minute 116/84 71.2 kg 1.624 m Issac Fernández MD 03/22/2025 9:35 AM Signed Chief Complaint Patient presents with: Lump: Noticed lump on inner left backside of right knee X 2-3 ago. It's elongated in shape and has gotten bigger since first noticing. Denies pain, redness or warmth to touch. Complains of tightness around her right alcantara. Refers to feeling like someone is squeezing her leg. Shortness of Breath: Ongoing. Blood Pressure: Admits to low blood pressure. Was told to follow up after echo results. Recording using HALFPOPS software for draft documentation of the visit was discussed with the patient/authorized billing customer service representative; all questions welcomed and answered. Patient/authorized billing customer service representative agreed to proceed HPI Shawanda Brink is a 19 year old female who presents here today for Above Complaints. Lump on Knee: - Shawanda Brink noticed a lump on the knee 2-3 weeks ago. - Describes it as feeling like a rope or line rather than a circular lump. - Reports the lump is growing in size. - No associated redness, swelling, or pain. - Lump changes position when standing. - Occasionally feels weirdly cold after manipulation. - Shawanda has experienced tightness in the ankle area, initially thought to be related to migraine attacks by a neurologist. Hypotension: - Shawanda reports episodes of hypotension with readings as low as 94/65 mmHg and 81/60 mmHg. - Noted hypotension while walking around at work, about an hour after lunch. - Experiences dizziness and lightheadedness during these episodes. - Recent echocardiogram and Holter monitor were normal. - Tilt table test ordered by Citlali Tejada. Weight Loss: - Significant weight loss since January 25, dropping from 169 lbs to 157 lbs. - Recent history of strep infection. - Currently . - Recent thyroid function tests were normal. Past medical history, appointments, medications, allergies reviewed. Previous Medical History PAST MEDICAL HISTORY Diagnosis Date Acne vulgaris 08/18/2015 Anxiety Bipolar 2 disorder (HCC) Cough variant asthma (HCC) 09/27/2016 Depression Migraines PMH - PAST MEDICAL HISTORY OF vascular rose left ankle Previous Surgical History PAST SURGICAL HISTORY Procedure Laterality Date NONE Family History FAMILY HISTORY Problem Relation Age of Onset Ange Disease Mother other (pulmnary embolism) Father other (mass on liver) Father other (depression and anxiety) Maternal Grandmother Cervical Cancer Maternal Grandmother other ([place]) Maternal Grandfather 49 other (depression and anxiety) Paternal Grandmother Bipolar disorder Paternal Grandmother Anxiety disorder Paternal Grandfather Cancer Other PATERNAL AND MATERNAL SIDES Diabetes Other PATERNAL AND MATERNAL SIDES other (CLOTTING DISORDER) Other PATERNAL SIDE - FACTOR 5 DISORDER Paternal great aunt Patient Allergies ALLERGIES Allergen Reactions Celexa [Citalopram] Other: See Comments Tunnel vision Lexapro [Escitalopr* Rash Current Medications Current Outpatient Medications on File Prior to Visit Medication Sig amitriptyline (ELAVIL) 25 mg tablet Take 1 tablet by mouth daily at bedtime. eletriptan (RELPAX) 20 mg tablet Take 1 tablet by mouth as needed. at the onset of migraine headache. pantoprazole DR (PROTONIX) 20 mg tablet Take 1 tablet by mouth once daily. fluticasone (FLONASE) 50 mcg/actuation nasal spray No current facility-administered medications on file prior to visit. Social History SOCIAL HISTORY[1] Review of Symptoms REVIEW OF SYSTEMS See HPI EXAM: BP 116/84 Pulse 84 Ht 162.4 cm (5' 3.94) Wt 71.2 kg (157 lb) LMP (LMP Unknown) SpO2 99% BMI 27.00 kg/m? General Appearance: Well appearing, alert, in no acute distress, well-hydrated, well nourished.. Skin: Skin color, texture, turgor normal, no suspicious rashes or lesions. Lungs: Lungs clear to auscultation. No wheezing, rhonchi, rales.. Heart: RRR without murmur, gallop, or rubs. No ectopy. Extremities: 2-3 cm varicose vein behind right knee on medial aspect without TTP, erythema, induration. No edema or LE swelling noted. Health Maintenance List Meningococcal B Vaccine(1 of 2 - Standard) Never done Hepatitis C Screening Never done HIV Screening Never done GC (Gonorrhea) Screening (18-24) due on 11/16/2022 Chlamydia Screening (18-24) due on 11/16/2022 Cervical Cancer Screening Never done Influenza Vaccine(1) due on 03/18/2025 Annual PCP Team Chronic Disease Visit due on 03/22/2026 DTaP,Tdap,Td Vaccine(8 - Td or Tdap) due on 11/03/2032 Hepatitis (more content not included)... 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) Chief Complaint: Annual Color Blender Required: No Is patient in pain?: No Allergies No Known Allergies Allergy (Verified 03/21/25 13:37) Medications ???Medication ???Instructions ???Recorded ???Confirmed ???Type amitriptyline 10 mg tablet 10 mg PO QHS 02/08/25 03/21/25 His tory fluticasone propionate 50 1 spray intranasal BID #16 grams 0 02/08/25 03/21/25 Rx mcg/actuation nasal spray,suspension meclizine 25 mg tablet 25 mg PO TID PRN dizziness #20 tab s 02/08/25 03/21/25 Rx Is last menstrual period known: No Post menopausal: No Patient : No : Yes Control Method: NFP [facility] Medical History Former smoker Hx of gestational diabetes in prior , currently Vaginal delivery hemorrhage depression Gestational diabetes Panic disorder Generalized anxiety disorder Bipolar 2 disorder Seasonal allergies Contraception management Anemia due to blood loss, acute hemorrhage macrosomia GBS (group B Streptococcus carrier), +RV culture, currently Gestational diabetes Anxiety Palpitations Supervision of high risk , antepartum Asthma Depression Family History Grandmother Cervical cancer, Onset Age: 40 maternal Family history of recurrent miscarriage maternal- 2 miscarriages Grandfather Myocardial infarction Father Heart disease Mother Family history of recurrent miscarriage 2 miscarriages Aunt Family history of recurrent miscarriage Maternal- 2 miscarriages Social History adopted: No household members: significant other and children housing: house number of children: 1 current occupational status: employed current occupation: Will be starting at [employer] current occupational exposures/hazards: No pets and animals: No (not managing litterbox while ) history of recent travel: No ([place]) sexually active: Yes Smoking Status: Former smoker how long ago did patient quit smoking: Quit 04/08 alcohol intake: never substance use type: does not use well-balanced diet: daily or most days caffeine: No (ocassional) eating out: 1-3 times/week during the past year weight has: increased > 10 lbs what type of physical activity do you participate in: none jenni/rastafari: Episcopalian seatbelt use: always do you feel safe at home: Yes additional social history: Aura Valderrama [employer] History 2 Elective abortions Hx Para 1 Spontaneous abortions Hx # Term Pregnancies 2 Ectopic pregnancies Hx # Pregnancies Multiple births # of living children 2 Past Pregnancies Del. Date Name GA/Weeks Outcome Route Bth Weight Gen Labor Lgth Anesthesia Del Locatn Provider FOB 12/15/22 Oksana 39 live - full term vacuum 8lbs 8oz Female [facility] Dr Quynh Marie 01/30/24 Charlie 40 live - full term Male [facility] KW Delivery Date: 12/15/22 Last Updated by: Jany Calderon Gestational diabetes Delivery Date: 01/30/24 Last Updated by: Yohana Su [facility] Encounter for routine gynecological examination Details: SHAWANDA BRINK is a 19 year old who presents for annual exam. still and not having menses. does occasionally have left breast pain not associated with . Last PAP: Not done, due today History of abnormal PAP: [] Last mammogram: Due at 38yrs History of abnormal mammogram: [] Colon cancer screening: Due at 43yrs Other preventative health care screenings: PCP - Veronica Oliveros Constitutional: Reports system reviewed and no additional complaints, except as documented Cardio Card: Reports system reviewed and no additional complaints, except as documented Resp Resp: Reports system reviewed and no additional complaints, except as documented GI GI: Reports system reviewed and no additional complaints, except as documented : Reports system reviewed and no additional complaints, except as documented; Denies difficulty voiding, dysuria or urinary frequency Skin Skin/Breast: Reports system reviewed and no additional complaints, except as docu (more content not included)... Normal [facility] HbA1c (Bld)on 03-20-2025 Average glucose Estimated from glycated hemoglobin (Bld) [Mass/Vol] 100 mg/dL Normal [facility] Comment on above: Order Comment: Isaiah velasquez Type: BLOOD SPECIMENOrdering Facility: [facility] Address: [address] [place] [address] Result Comment: eAG: (Estimated average glucose) is a calculated value from HgbA1c and is billing customer service representative of the average blood glucose level in the last 2-3 month period. Performed By: #### 5 5454-3 ####[facility] [id number] [place] [address] [place] HbA1c (Bld) [Mass fraction] 5.1 % Normal 4.3-5.6 [facility] Comment on above: Order Comment: Isaiah velasquez Type: BLOOD SPECIMENOrdering Facility: [facility] Address: [address] [place] [address] Result Comment: [place] Diabetes Association guidelines indicate that patients with HgbA1c in the range 5.7-6.4% are at increased risk for development of diabetes, and intervention by lifestyle modification may be beneficial. HgbA1c greater or equal to 6.5% is considered diagnostic of diabetes. Performed By: #### [id number] ####[facility] LABCLIA [id number] [address] STATES OF [facility] ECHOon 03-19-2025 Echocardiography Echocardiography Report: Transthoracic Echo [facility] Date of service: 03/19/2025 3:32:13 PM Ordering physician: ISSAC FERNÁNDEZ Exam indication: Palpitations Technologist: Antoinette Vicente [facility] Interpreting physician: Priyank Curiel MD PATIENT: Name: MISS SHAWANDA BRINK : 2005 Age: 19 years Gender: F Primary rhythm: sinus. Height: 162.40 cm BSA: 1.82 m Weight: 73.15 kg BMI: 27.7 kg/m Heart rate 74 bpm Color Doppler was utilized to interrogate the cardiac valves assessed and spectral Doppler was utilized to determine the flow velocities and pressure gradients reported in this exam. Myocardial strain analysis was performed in this exam to aid in the assessment of cardiac function. MEASUREMENTS: Value Indexed Normal Max aortic dimension 2.8 cm Ao < 3.8 Left atrial volume 36 ml (biplane A-L) 20 ml/m Harpreet <= 34 LV ID (diastole) 4.8 cm (2D) 2.66 cm/m LV ID (systole) 3.0 cm (2D) 1.65 cm/m IVS, leaflet tips 0.7 cm (2D) Posterior wall thickness 0.7 cm (2D) Left ventricular mass 107 g (2D) 59 g/m Global peak long strain -17.7 % LV stroke volume 56 ml (2D biplane) LV end diastolic volume 96 ml (2D biplane) 52.7 ml/m 29<=EDVi<62 LV end systolic volume 40 ml (2D biplane) 22.0 ml/m Ejection Fraction 58 % (2D biplane) EF > 54 FINDINGS: LEFT VENTRICLE The left ventricle is normal in size. Left ventricular systolic function is normal. Global LV myocardial strain is normal. Normal left ventricular diastolic function. Mitral annular lateral E/e': 5.5. Mitral annular septal E/e': 9.4. Wall Motion: All scored segments are normal. RIGHT VENTRICLE The right ventricle is normal in size. Right ventricular systolic function is normal. RV systolic tissue Doppler velocity is 13.0 cm/s. Tricuspid annular displacement is 1.9 cm. Estimated right atrial pressure is 3 mmHg based on IVC assessment. LEFT ATRIUM The left atrial cavity is normal in size. Pulmonary Veins: The pulmonary venous pattern showed blunted systolic flow. RIGHT ATRIUM The right atrial cavity is normal in size (RA area = 10.1 cm ). Inferior Vena Cava: The inferior vena cava appears normal measuring 1.40 cm. The vessel decreases greater than 50 percent with inspiration. MITRAL VALVE The mitral valve leaflets are structurally normal. There is no mitral valve regurgitation. The pressure half time is 39 msec. The peak mitral E/A ratio is 1.50. The average mitral E/e' ratio is 7.5. The mitral flow deceleration time is 136 msec. TRICUSPID VALVE The tricuspid valve leaflets are structurally normal. There is no tricuspid valve regurgitation. AORTIC VALVE The aortic valve cusps are structurally normal. There is no aortic valve stenosis. There is no aortic valve regurgitation. Tricuspid aortic valve. The peak gradient is 6 mmHg (peak velocity = 125.9 cm/s). PULMONIC VALVE The pulmonic valve cusps are structurally normal. There is no pulmonic valve regurgitation. AORTA The visualized aorta is normal in size. Measurements - Mid ascending aorta 2.8 cm. INTERATRIAL SEPTUM There is no evidence of intracardiac shunting as detected by Doppler. PERICARDIUM There is no pericardial effusion. CONCLUSIONS: - Exam indication: Palpitations - The left ventricle is normal in size. Left ventricular systolic function is normal. EF = 58 5% (2D biplane). Normal left ventricular diastolic function. - The right ventricle is normal in size. Right ventricular systolic function is normal. - There are no significant valvular abnormalities. - The patient has not had a prior CC echocardiographic exam for comparison. * * * Final * * * [facility] [employer] Image : [id number] ISUID [facility] CNPNon 03-16-2025 [facility] CUBASHAWANDA Savannah ([id number]) 1 F Date Time Provider Department 03/16/25 ISSAC FERNÁNDEZ [facility] During your visit today, we recorded the following information about you: Bela Martinez RN 03/16/2025 10:41 AM Signed Patient Update: Pt calling in as advised to discuss her 03/15/25 message in more detail. Patient has no concerning symptoms at this time. Reports she continues with intermittent episodes of headaches and dizziness, along with palpitations and tachycardia at times. which PCP and specialists are aware of. Ongoing for just over a year. States she was told there may be a neurological component and pt saw Neurology on 03/14/25. Per Neuro note: tilt table test ordered, pt to take Replax for abortive migraine therapy and pt to start amitriptyline. Pt to follow up with Neuro in 3 months. -Pt to have telehealth visit with Psychiatry 03/21 due to experiencing side effects from prozac and was told to stop it. -Pt to have Echocardiogram 03/22. -Pt to have stress test 04/19. -Pt to see Dr. Fernández 04/29. Pt offered appt with PCP team, and pt feels this is not needed at this time. States she will plan to attend upcoming appts as scheduled and will call PCP office for any worsening sx's or questions. Pt reminded again to call 911 or proceed to ER for any red flag sx's as dicussed during call. SHERLY QuezadalogVeronica berger APRN.SUSANA 03/19/2025 7:14 AM Signed Reviewed. Veronica Muse APRN.MILL RECORDER Allergies As of Date: 03/16/2025 Noted Allergy Reaction CELEXA (CITALOPRAM) 03/21/2024 14 - Other: See Comments Comments: Tunnel vision LEXAPRO (ESCITALOPRAM) 03/21/2024 2 - Rash Date Reviewed: 03/14/2025 Reviewed by: Citlali Ceja PA-C - Fully Assessed Reason for Visit: Patient Update [1234] Prescriptions as of 03/19/2025 - eletriptan (RELPAX) 20 mg tablet Take 1 tablet by mouth as needed. at the onset of migraine headache. - FLUoxetine (PROZAC) 20 mg capsule Take 1 capsule by mouth once daily. - pantoprazole DR (PROTONIX) 20 mg tablet Take 1 tablet by mouth once daily. - fluticasone (FLONASE) 50 mcg/actuation nasal spray - amitriptyline (ELAVIL) 10 mg tablet Take 1 tablet by mouth daily at bedtime. Problem List As Of Date 03/16/2025 Noted Resolved Acne vulgaris [L70.0] 08/18/2015 Mild persistent asthma without complication [J4*09/27/2016 Flat foot [M21.40] 07/20/2017 Influenza vaccine refused [Z28.21] 07/20/2017 Depression [F32.A] 08/04/2021 Generalized anxiety disorder [F41.1] 08/04/2021 Encounter Status:Closed by BELA MARTINEZ on 03/19/25 [facility] ) SHAWANDA BRINK ([id number]) 1 F Date Time Provider Department 03/14/25 8:00 AM CITLALI CEJA [facility] During your visit today, we recorded the following information about you: Weight Height 73.1 kg 1.624 m Citlali Ceja PA-C 03/14/2025 9:13 AM Signed [facility] Outpatient [facility] Date: March 14, 2025 Patient Name: Shawanda Brink Referring physician: Issac Fernández [address] [facility] [id number] Consult requested for headache by Dr. Fernández. Recommendations will be communicated via shared medical record or US mail. Primary physician: Issac Fernández [address] [place] [address] Reason for Evaluation: Headaches Subjective HPI Shawanda Brink is a 19 year old female who presents for evaluation of headache. Dr. Fernández is the referring physician. Dr. Issac Fernández MD is the PCP. Chart review: Saw PCP on 01/25/25 for migraine. Headaches: - Onset in August, initially 1-2 times/week, increased to 3-5 times/week, now occurring almost daily. - Described as mild, strained headaches, located behind the eyes. - Alleviated by ibuprofen or Tylenol, but recur after 6-8 hours. - Denies current migraine headaches; previously experienced 8-10 severe headaches per month, lasting 3-5 days each. Having some dizziness and paresthesias as well. On imitrex, propranolol and prozac. Having bradycardia stopped BB, started elavil. Ordered MRI brain and was normal. Per patient: Patient presents for evaluation of headaches and dizziness. Ongoing for just over a year since she has had her son over a year ago, January 2024. Notes that she is getting palpitations and tachycardia especially when standing. Occasionally will happen when she is sitting. States that she gets very lightheaded when this happens. Worsens when she gets migraines and aura, notes that she is only gotten 4-5 auras in the last year but has never had aura before. With this she does get very lightheaded and feels as if she is going to pass out, no episodes of syncope. No viral illness that she is aware of around time of onset. Notes that she did have history of migraines before but not dizziness. Prior to having her son she was getting maybe 1 migraine a month, now she is getting 4-5 lasting up to 3 days each. Was given Imitrex but states that she had significant side effects with it so she did not take it. Was prescribed amitriptyline but states she did not start due to the side effects of previous antidepressants in the past. Regarding the dizziness, notes that it is never fully gone away but again worsens with certain position changes. Does get better when she lays down. Of note, has had anisocoria her whole life. Current Headache treatment Preventative: elavil and prozac Abortive: imitrex Medications effective? no # of doses of abortive medications per month: 0 Previous imaging: MRI brain 01/31/25 IMPRESSION: No evidence of an intracranial acute process. Unremarkable appearance of the cerebral white matter. Previous Medications: Propranolol Prozac Imitrex Elavil Headache Description Onset: 2023 Total headache days per month: 10 per month Total headache attacks per month: 4 per month Headache free days: Yes Duration of attacks: multiple days Severity of headaches? Onset to Peak: gradual Location: Right sided. Aura: 5-6 times Prodrome:fmp4vmb, kaleidsecope lasting 30-45 minuhtes . Accompanying symptoms: R eye weakness . Quality:throbbing. Worse with activity: Yes Cough/sneeze/valsalva as trigger: None Positional changes: No Risk Factors Tobacco Use: Yes, vaping Alcohol Use: No Other substances: No Fibromyalgia: No History of Motor Vehicle Accident: No History of Traumatic Brain Injury and/or Concussion: No History of severe infection: No History of Syncope: No Obesity: No, Body mass index is 27 - no Eye doc- just checked two months Family History Migraine or other headaches in the family: grandma and aunt with migraines ROS Review of Systems CONSTITUTIONAL: No reported fevers, chills, night sweats, or significant unintentional weight loss. EYES: No visual changes indicated. No eye pain or orbital swelling reported. HEENT: No hearing changes or vertiginous symptoms indicated. No history of nose bleeds reported. RESPIRATORY: No reported cough, wheezing and dyspnea. CARDIOVASCULAR: Negative for significant chest pain , and palpitations per report. GI: Negative for significant abdominal discomfort , blood in stools or black stools reported. No recent reported change in bowel habits. : No reported history of incontinence. No dark/cola colored urine reported. MUSCLOSKELETAL: No history of significant joint pain or swelling, or myalgias (more content not included)... Normal [facility] 03-08-2025 CNPN Telephone (FAMPWS) SHAWANDA BRINK ([id number]) 1 F Date Time Provider Department 03/08/25 VERONICA MUSE During your visit today, we recorded the following information about you: Mark Fan RN 03/08/2025 3:09 PM Signed Patient calls to ask if provider would order a HGBA1C as she was going to ask at appointment earlier today and forgot. She had gestational diabetes and would like to have it checked. She saw endocrinology previously but reports they would need an appointment before ordering blood work. Please review and advise, Mark Fan RN PodlogVeronica berger APRN.SUSANA 03/11/2025 7:50 AM Signed Orders for A1c placed. Please let patient know she can come and complete at her convenience. Veronica Muse APRN.Mark Mayen RN 03/11/2025 11:18 AM Signed Call placed to patient and notified of below with verbalized understanding. Mark Fan RN Allergies As of Date: 03/08/2025 Noted Allergy Reaction CELEXA (CITALOPRAM) 03/21/2024 14 - Other: See Comments Comments: Tunnel vision LEXAPRO (ESCITALOPRAM) 03/21/2024 2 - Rash Date Reviewed: 03/05/2025 Reviewed by: Yohana Bird LPN - Fully Assessed Reason for Visit: Patient Question [1477] Primary Visit Diagnosis:Hx of gestational diabetes mellitus, not currently [Z86.32] Order(s):HEMOGLOBIN A1C [RRSDP0N] Order #: [id number] FUTURE Prescriptions as of 03/11/2025 - FLUoxetine (PROZAC) 20 mg capsule Take 1 capsule by mouth once daily. - pantoprazole DR (PROTONIX) 20 mg tablet Take 1 tablet by mouth once daily. - fluticasone (FLONASE) 50 mcg/actuation nasal spray - amitriptyline (ELAVIL) 10 mg tablet Take 1 tablet by mouth daily at bedtime. - SUMAtriptan (IMITREX) 50 mg tablet Take 1 tablet by mouth as needed for migraine headache (see administration instructions). May repeat dose after 2 hours if needed. Maximum daily dose is 200 mg per day. Problem List As Of Date 03/08/2025 Noted Resolved Acne vulgaris [L70.0] 08/18/2015 Mild persistent asthma without complication [J4*09/27/2016 Flat foot [M21.40] 07/20/2017 Influenza vaccine refused [Z28.21] 07/20/2017 Depression [F32.A] 08/04/2021 Generalized anxiety disorder [F41.1] 08/04/2021 Encounter Status:Closed by MARK FAN on 03/11/25 [facility] SHAWANDA BRINK ([id number]) 1 F Date Time Provider Department 03/08/25 ISSAC FERNÁNDEZ [facility] During your visit today, we recorded the following information about you: Bela Martinez RN 03/08/2025 9:34 AM Signed Patient calling to give Maxine Ellis CNP an update and ask for advise. Pt had Teleheath visit with Maxine on 10/18/2024. Pt was on Zoloft at that time and not tolerating it well. Pt was in agreement to start Prozac instead, to address mood and anxiety sx's. Due to reasons, pt states she did not start the Prozac then. Pt decided to start the Prozac about 4 days ago. Takes it in the mornings. Reports yesterday, after her 3rd dose, she experienced more anxiety and last night she felt like I was crawling out of my skin. Did not sleep well last night. Pt states she has tried several other similar medications in past and have experienced similar side effects with those as well. Denies any rashes, breathing changes, N/V, SI/HI or any other sx's. No severe sx's. Pt has not taken this morning's dose. Will await provider's advise. SHERLY Quezada Nishi J, LAVELL.MILL RECORDER 03/08/2025 10:17 AM Signed Please tell the patient to stop taking the Prozac due the side effect. Schedule her for a sooner appointment with this provider. You can offer her a virtual visit on 03/21 at 11 am as she is a women's health patient. Queta Mccarty LPN 03/08/2025 10:54 AM Signed Call placed to pt, provider instructions given, pt voices understanding. Queta Mccarty LPN Allergies As of Date: 03/08/2025 Noted Allergy Reaction CELEXA (CITALOPRAM) 03/21/2024 14 - Other: See Comments Comments: Tunnel vision LEXAPRO (ESCITALOPRAM) 03/21/2024 2 - Rash Date Reviewed: 03/05/2025 Reviewed by: Yohana Bird LPN - Fully Assessed Reason for Visit: Patient Update [1234] Prescriptions as of 03/08/2025 - FLUoxetine (PROZAC) 20 mg capsule Take 1 capsule by mouth once daily. - pantoprazole DR (PROTONIX) 20 mg tablet Take 1 tablet by mouth once daily. - fluticasone (FLONASE) 50 mcg/actuation nasal spray - amitriptyline (ELAVIL) 10 mg tablet Take 1 tablet by mouth daily at bedtime. - SUMAtriptan (IMITREX) 50 mg tablet Take 1 tablet by mouth as needed for migraine headache (see administration instructions). May repeat dose after 2 hours if needed. Maximum daily dose is 200 mg per day. Problem List As Of Date 03/08/2025 Noted Resolved Acne vulgaris [L70.0] 08/18/2015 Mild persistent asthma without complication [J4*09/27/2016 Flat foot [M21.40] 07/20/2017 Influenza vaccine refused [Z28.21] 07/20/2017 Depression [F32.A] 08/04/2021 Generalized anxiety disorder [F41.1] 08/04/2021 Encounter Status:Closed by QUETA MCCARTY on 03/08/25 [facility] CNOVon 03-05-2025 CNOV Office Visit (FAMPWS ) SHAWANDA BRINK ([id number]) 1 F Date Time Provider Department 03/05/25 11:00 AM VERONICA MUSE During your visit today, we recorded the following information about you: Pulse Respiration Blood pressure Weight 82/minute 18/minute 106/74 74.4 kg Height 1.624 m Veronica Muse APRN.MILL RECORDER 03/05/2025 11:27 AM Signed 03/05/2025 Patient presents with: Physical Recording using HALFPOPS software for draft documentation of the visit was discussed with the patient/authorized billing customer service representative; all questions welcomed and answered. Patient/authorized billing customer service representative agreed to proceed SUBJECTIVE: This is a 19 year old that is here today for Above Complaints.. : - Currently ; attempting to stop. Anxiety: - Has not started prescribed Prozac; expresses nervousness about taking SSRIs. - Believes anxiety may contribute to symptoms. Migraines: - Taking sumatriptan PRN. - Recent MRI showed fluid in left mastoid air cell. - Referred to ENT for evaluation. Asthma: - History of sports-induced asthma; no inhaler use since high school. GERD: - Recently started on pantoprazole. - Reports worsening symptoms post-strep throat. PAST MEDICAL HISTORY Diagnosis Date Acne vulgaris 08/18/2015 Anxiety Bipolar 2 disorder (HCC) Cough variant asthma (HCC) 09/27/2016 Depression Migraines PMH - PAST MEDICAL HISTORY OF vascular rose left ankle ALLERGIES Celexa [Citalopram] and Lexapro [Escitalopram] MEDICATIONS Current Outpatient Medications Medication Sig pantoprazole DR (PROTONIX) 20 mg tablet Take 1 tablet by mouth once daily. fluticasone (FLONASE) 50 mcg/actuation nasal spray amitriptyline (ELAVIL) 10 mg tablet Take 1 tablet by mouth daily at bedtime. SUMAtriptan (IMITREX) 50 mg tablet Take 1 tablet by mouth as needed for migraine headache (see administration instructions). May repeat dose after 2 hours if needed. Maximum daily dose is 200 mg per day. FLUoxetine (PROZAC) 20 mg capsule Take 1 capsule by mouth once daily. (Patient not taking: Reported on 03/03/2025) No current facility-administered medications for this visit. Medications and allergies reviewed by this provider. SOCIAL HISTORY SOCIAL HISTORY[1] REVIEW OF SYSTEMS GENERAL: No weight loss, malaise or fevers HEENT: No changes in hearing or vision, no nose bleeds or other nasal problems NECK: Negative for lumps, goiter, and significant neck swelling RESPIRATORY: Negative for cough, hemoptysis, wheezing, COPD, dyspnea or shortness of breath CARDIOVASCULAR: Negative for chest pain, leg swelling, hypertension, CHF or palpitations GI: No nausea, vomiting, or diarrhea : No history of dysuria, frequency or incontinence CORPORATE PILOT: Negative for abnormal vaginal bleeding, abnormal vaginal discharge MUSCULOSKELETAL: Negative for joint pain or swelling, back pain or muscle pain SKIN: Negative for lesions, rash, and itching PSYCH: Negative for sleep disturbance, and recent psychosocial stressors, HEMATOLOGY/LYMPHOLOGY: Negative for prolonged bleeding, bruising easily or swollen nodes ENDOCRINE: Negative for cold or heat intolerance, polyuria, polydipsia and goiter NEURO: No history of syncope, paralysis, seizures or tremors All other reviewed and negative other than HPI. OBJECTIVE: BP 106/74 Pulse 82 Resp 18 Ht 162.4 cm (5' 3.94) Wt 74.4 kg (164 lb) LMP 11/04/2021 (Exact Date) SpO2 98% BMI 28.21 kg/m? . Vital signs reviewed by this provider. GENERAL: NAD, alert and oriented SKIN: unremarkable, no rash or skin lesions to exposed skin EYES: conjunctiva clear EARS: external ears normal, canals clear, TM's normal. NOSE/SINUSES: Nares normal. Septum midline. OROPHARYNX: lips, mucosa, and tongue normal, good dentition. No oral lesions noted. NECK: Supple, no lymphadenopathy, normal thyroid, no carotid bruits. LUNGS: Clear to auscultation bilaterally, no wheezes/rhonchi/rales. HEART: Regular rate and rhythm, no murmurs. No ectopy. EXTREMITIES: Normal, No deformities, No skin discoloration, No edema. NEURO: Awake, alert and oriented x3, cranial nerves II-XII grossly intact, normal gait, no involuntary motions FROM in all joints Latest Ref Rng 02/14/2025 02/18/2025 WBC 3.70 - 11.00 k/uL 5.98 RBC 3.90 - 5.20 m/uL 4.89 Hemoglobin 11.5 - 15.5 g/dL 14.3 Hematocrit 36.0 - 46.0 % 41.4 MCV 80.0 - 100.0 fL 84.7 MCH 26.0 - 34.0 pg 29.2 MCHC 30.5 - 36.0 g/dL 34.5 RDW-CV 11.5 - 15.0 % 12.0 Platelet Count 150 - 400 k/uL 304 MPV 9.0 - 12.7 fL 10.5 Neut% % 52.8 Abs Neut (ANC) 1.45 - 7.50 k/uL 3.15 Lymph% % 41.3 Abs Lymph 1.00 - 4.00 k/uL 2.47 Ingham% % 3.8 Abs Ingham <0.87 k/uL 0.23 Eosin% % 1.3 Abs Eosin <0.46 k/uL 0.08 Baso% % 0.5 Abs Baso <0.11 k/uL 0.03 Immature Gran % % 0.3 IMMATURE GRANS (ABS) <0.10 k/uL <0.03 NRBC /100 WBC 0.0 Absolut (more content not included)... Normal [facility] CNOVon 03-03-2025 CNOV Office Visit ([facility]) SHAWANDA BRINK ([id number]) 1 F Date Time Provider Department 03/03/25 2:30 PM ROHAN VILLALBA During your visit today, we recorded the following information about you: Temperature Pulse Respiration Blood pressure 97.6 degrees 76/minute 20/minute 120/78 Weight Last Period 74 kg 11/04/21 Rohan Villalba APRN.MILL RECORDER 03/03/2025 3:08 PM Signed [facility] Subjective Shawanda Brink is a 19 year old female. Patient presents with: Throat Problem: Pt states she has lump feeling in throat, aching hoarseness, x 3 weeks HPI Throat Discomfort and Hoarseness: - Sensation of a lump in the throat, x4 days prior to strep diagnosis. - Intermittent hoarseness. - No odynophagia. - Occasional aching and throbbing sensation when inhaling. - Symptoms are variable, with some days being worse than others. - History of acid reflux during ; denies current . Recent Strep Throat: - Diagnosed with strep throat on the . - Prescribed amoxicillin 500 mg; missed two doses. - Improvement in sore throat and dizziness, though mild dizziness persists. - Changed toothbrush, toothpaste, mouthwash, and chapsticks post-treatment. - Reports a weird taste in the mouth. - Initial symptoms included a stiff neck, which has worsened. Review of Systems Neck: (+) neck stiffness Ears/Nose/Mouth/Throat: (+) foreign body sensation in throat, (+) hoarseness, (+) throat pain with inspiration, (+) dysgeusia, (-) odynophagia Neurological: (+) dizziness Objective BP 120/78 Pulse 76 Temp 36.4 ?C (97.6 ?F) Resp 20 Wt 74 kg (163 lb 2.3 oz) LMP 11/04/2021 (Exact Date) SpO2 100% Yes BMI 27.28 kg/m? Physical Exam General: No acute distress. HEENT: Pharynx erythematous, no abscesses noted; tympanic membranes normal bilaterally. Resp: Lungs clear to auscultation bilaterally. { 1. Sore throat (J02.9) - Recent history of strep pharyngitis diagnosed on the ; treated with amoxicillin 500 mg, but course was not completed as prescribed. - Persistent symptoms include globus sensation, hoarseness, and intermittent throat discomfort; strep test today was negative. - Possible etiology of symptoms is acid reflux. - Start Protonix once daily. - ENT referral for further evaluation. - Patient agreeable to care plan. and Recording using HALFPOPS software for draft documentation of the visit was discussed with the patient/authorized billing customer service representative; all questions welcomed and answered. Patient/authorized billing customer service representative agreed to proceed MDM Procedures Allergies As of Date: 03/03/2025 Noted Allergy Reaction CELEXA (CITALOPRAM) 03/21/2024 14 - Other: See Comments Comments: Tunnel vision LEXAPRO (ESCITALOPRAM) 03/21/2024 2 - Rash Date Reviewed: 03/03/2025 Reviewed by: Jayne Cleveland LPN - Fully Assessed Reason for Visit: Throat Problem [109] Cmt: Pt states she has lump feeling in throat, aching hoarseness, x 3 weeks Primary Visit Diagnosis:Sore throat [J02.9] Order(s):STREP A MOLECULAR (POC) [1708253] Order #: [id number]. #:[id number] CONSULT TO ENT [9008] Order #: [id number]: [address] (PROTONIX) 20 mg tabletTake 1 tablet by mouth once daily.Disp: 30 tabletRfl: 0 Prescriptions as of 03/03/2025 - pantoprazole DR (PROTONIX) 20 mg tablet Take 1 tablet by mouth once daily. - meclizine (ANTIVERT) 25 mg tab - fluticasone (FLONASE) 50 mcg/actuation nasal spray - amitriptyline (ELAVIL) 10 mg tablet Take 1 tablet by mouth daily at bedtime. - SUMAtriptan (IMITREX) 50 mg tablet Take 1 tablet by mouth as needed for migraine headache (see administration instructions). May repeat dose after 2 hours if needed. Maximum daily dose is 200 mg per day. - FLUoxetine (PROZAC) 20 mg capsule Take 1 capsule by mouth once daily. Problem List As Of Date 03/03/2025 Noted Resolved Acne vulgaris [L70.0] 08/18/2015 Mild persistent asthma without complication [J4*09/27/2016 Flat foot [M21.40] 07/20/2017 Influenza vaccine refused [Z28.21] 07/20/2017 Depression [F32.A] 08/04/2021 Generalized anxiety disorder [F41.1] 08/04/2021 Prescriptions ordered this encounter Disp Refills Start End PANTOPRAZOLE 20 MG TABLET,DELAYED RE* 30 t* 0 03/03/2025 04/02/2025 Route: PO Sig: Take 1 tablet by mouth once daily. Encounter Status:Closed by ROHAN VILLALBA on 03/03/25 Normal [facility] STREP A MOLECULAR (POC)on Procedural Control Valid [facility] Strep A (POCT) Negative Negative [facility] CNPNon 02-22-2025 CNPN Telephone (NEMOWS) SHAWANDA BRINK ([id number]) 1 F Date Time Provider Department 02/22/25 CITLALI CEJA During your visit today, we recorded the following information about you: Tessy Chow LPN 02/22/2025 1:21 PM Signed Patient was unaware when they scheduled her appointment it was [place]. Patient was in [place] [facility] waiting area after being checked in for appointment by PSS. Assisted rescheduling patient for [place]. Tessy Chow LPN Allergies As of Date: 02/22/2025 Noted Allergy Reaction CELEXA (CITALOPRAM) 03/21/2024 14 - Other: See Comments Comments: Tunnel vision LEXAPRO (ESCITALOPRAM) 03/21/2024 2 - Rash Date Reviewed: 02/14/2025 Reviewed by: Jamal Cortez APRN.MILL RECORDER - Fully Assessed Reason for Visit: Appointment [186] Prescriptions as of 03/04/2025 - pantoprazole DR (PROTONIX) 20 mg tablet Take 1 tablet by mouth once daily. - meclizine (ANTIVERT) 25 mg tab - fluticasone (FLONASE) 50 mcg/actuation nasal spray - amitriptyline (ELAVIL) 10 mg tablet Take 1 tablet by mouth daily at bedtime. - SUMAtriptan (IMITREX) 50 mg tablet Take 1 tablet by mouth as needed for migraine headache (see administration instructions). May repeat dose after 2 hours if needed. Maximum daily dose is 200 mg per day. - FLUoxetine (PROZAC) 20 mg capsule Take 1 capsule by mouth once daily. Problem List As Of Date 02/22/2025 Noted Resolved Acne vulgaris [L70.0] 08/18/2015 Mild persistent asthma without complication [J4*09/27/2016 Flat foot [M21.40] 07/20/2017 Influenza vaccine refused [Z28.21] 07/20/2017 Depression [F32.A] 08/04/2021 Generalized anxiety disorder [F41.1] 08/04/2021 Encounter Status:Closed by TESSY CHOW on 03/04/25 [facility] 02-18-2025 [facility] Telephone (FAMWS) SHAWANDA BRINK ([id number]) 1 F Date Time Provider Department 02/18/25 [facility] During your visit today, we recorded the following information about you: Keli Myers RN 02/18/2025 10:58 AM Signed Nadz with [employer] called wanting the billing codes for the lab work Pt was getting done today. I gave her the diagnosis code Z83.49, and the lab names Thyroid Peroxidase Antibody, T4 Free/Free Thyroxine, and T3. Since I didn't know the billing code. Keli Myers RN Allergies As of Date: 02/18/2025 Noted Allergy Reaction CELEXA (CITALOPRAM) 03/21/2024 14 - Other: See Comments Comments: Tunnel vision LEXAPRO (ESCITALOPRAM) 03/21/2024 2 - Rash Date Reviewed: 02/14/2025 Reviewed by: Jamal Cortez APRN.MILL RECORDER - Fully Assessed Reason for Visit: Billing Codes for Lab Work [Other] Prescriptions as of 02/18/2025 - meclizine (ANTIVERT) 25 mg tab - fluticasone (FLONASE) 50 mcg/actuation nasal spray - amoxicillin (AMOXIL) 500 mg capsule Take 1 capsule by mouth two times a day for 10 days. - amitriptyline (ELAVIL) 10 mg tablet Take 1 tablet by mouth daily at bedtime. - SUMAtriptan (IMITREX) 50 mg tablet Take 1 tablet by mouth as needed for migraine headache (see administration instructions). May repeat dose after 2 hours if needed. Maximum daily dose is 200 mg per day. - FLUoxetine (PROZAC) 20 mg capsule Take 1 capsule by mouth once daily. Problem List As Of Date 02/18/2025 Noted Resolved Acne vulgaris [L70.0] 08/18/2015 Mild persistent asthma without complication [J4*09/27/2016 Flat foot [M21.40] 07/20/2017 Influenza vaccine refused [Z28.21] 07/20/2017 Depression [F32.A] 08/04/2021 Generalized anxiety disorder [F41.1] 08/04/2021 Encounter Status:Closed by KELI MYERS on 02/18/25 Normal [facility] T3 SerPl-mCncon 02-18-2025 T3 [Mass/Vol] 109 ng/dL Normal 79-165 [facility] Comment on above: Order Comment: Speci men Type: BLOOD SPECIMENOrdering Facility: [facility] Address: [address] [place] [address] Performed By: #### 3 053-6, 3024-7 ####[facility] LABCLIA [id number] [place] [address] [place] T4 Free SerPl-mCncon 025 Free T4 [Mass/Vol] 1.3 ng/dL Normal 0.9-1.7 [facility] Comment on above: Order Comment: Speci men Type: BLOOD SPECIMENOrdering Facility: [facility] Address: [address] [place] [address] Performed By: #### 3 053-6, 3024-7 ####[facility] LABCLIA [id number] [address] OF [facility] THYROID PEROXIDASE ANTIBODYo n 02-18-2025 TPO Ab Qn [IU]/mL Normal <5.6 [facility] Comment on above: Order Comment: Speci men Type: BLOOD SPECIMENOrdering Facility: [facility] Address: [address] [place] [address] Result Comment: Thyr oid Peroxidase Antibody test is used as an aid in diagnosis of autoimmune thyroid disease. Clinical correlation is required. Performed By: #### M ICRO ####[facility] LABCLIA [id number] [address] [place] CBC W Auto Differential pane l (Bld)on 02-14-2025 Basophils (Bld) [#/Vol] 0.03 10*3/uL [facility] Basophils/100 WBC (Bld) 0.5 % [facility] Differential cell count method Nom (Bld) Auto [facility] Eosinophils (Bld) [#/Vol] 0.08 10*3/uL [facility] Eosinophils/100 WBC (Bld) 1.3 % [facility] Erythrocyte distribution width (RBC) [Ratio] 12 % 11.5 - 15.0 % [facility] Hematocrit (Bld) [Volume fraction] 41.4 % 36.0 - 46.0 % [facility] Hemoglobin (Bld) [Mass/Vol] 14.3 g/dL 11.5 - 15.5 g/dL [facility] Immature granulocytes (Bld) [#/Vol] [facility] Immature granulocytes/100 WBC (Bld) 0.3 % [facility] Lymphocytes (Bld) [#/Vol] 2.47 10*3/uL [facility] Lymphocytes/100 WBC (Bld) 41.3 % [facility] MCH (RBC) [Entitic mass] 29.2 pg 26.0 - 34.0 pg [facility] MCHC (RBC) [Mass/Vol] 34.5 g/dL 30.5 - 36.0 g/dL [facility] MCV (RBC) [Entitic vol] 84.7 fL 80.0 - 100.0 fL [facility] Monocytes (Bld) [#/Vol] 0.23 10*3/uL [facility] Monocytes/100 WBC (Bld) 3.8 % [facility] Neutrophils (Bld) [#/Vol] 3.15 10*3/uL [facility] Neutrophils/100 WBC (Bld) 52.8 % [facility] Nucleated RBC (Bld) [#/Vol] NINF [facility] Nucleated RBC/100 WBC (Bld) [Ratio] 0 % /100 WBC [facility] Platelet mean volume (Bld) [Entitic vol] 10.5 fL 9.0 - 12.7 fL [facility] Platelets (Bld) [#/Vol] 304 10*3/uL [facility] RBC (Bld) [#/Vol] 4.89 10*6/uL 3.90 - 5.2 0 m/uL [facility] WBC (Bld) [#/Vol] 5.98 10*3/uL [facility] Basophils (Bld) [#/Vol] 0.03 10*3/uL Normal <0.11 [facility] Comment on above: Order Comment: Speci men Type: BLOOD SPECIMENOrdering Facility: [facility] Address: [address] [place] [address] Performed By: #### 5 7021-8 ####[facility] LABIA [id number] [place] [address] [place] Basophils/100 WBC (Bld) 0.5 % Normal [facility] Comment on above: Order Comment: Speci men Type: BLOOD SPECIMENOrdering Facility: [facility] Address: [address] [place] [address] Performed By: #### 5 7021-8 ####[facility] LABIA [id number] [place] [address] [place] Differential cell count method Nom (Bld) Auto Normal [facility] Comment on above: Order Comment: Speci men Type: BLOOD SPECIMENOrdering Facility: [facility] Address: [address] [place] [address] Performed By: #### 5 7021-8 ####[facility] LABCLIA [id number] [address], [place] [address] [place] Eosinophils (Bld) [#/Vol] 0.08 10*3/uL Normal <0.46 [facility] Comment on above: Order Comment: Speci men Type: BLOOD SPECIMENOrdering Facility: [facility] Address: [address] [place] [address] Performed By: #### 5 7021-8 ####[facility] LABCLIA [id number] [address], [place] [address] [place] Eosinophils/100 WBC (Bld) 1.3 % Normal [facility] Comment on above: Order Comment: Speci men Type: BLOOD SPECIMENOrdering Facility: [facility] Address: [address] [place] [address] Performed By: #### 5 7021-8 ####[facility] LABCLIA [id number] [address], [facility] [place] Erythrocyte distribution width (RBC) [Ratio] 12.0 % Normal 11.5-15.0 [facility] Comment on above: Order Comment: Speci men Type: BLOOD SPECIMENOrdering Facility: [facility] Address: [address] [place] [address] Performed By: #### 5 7021-8 ####[facility] LABCLIA [id number] [address] [place] [address] [place] Hematocrit (Bld) [Volume fraction] 41.4 % Normal 36.0-46.0 [facility] Comment on above: Order Comment: Speci men Type: BLOOD SPECIMENOrdering Facility: [facility] Address: [address] [place] [address] Performed By: #### 5 7021-8 ####[facility] LABCLIA [id number] [address] [place] [address] [place] Hemoglobin (Bld) [Mass/Vol] 14.3 g/dL Normal 11.5-15.5 [facility] Comment on above: Order Comment: Speci men Type: BLOOD SPECIMENOrdering Facility: [facility] Address: [address] [place] [address] Performed By: #### 5 7021-8 ####[facility] LABCLIA [id number] [facility] [place] [address] [place] Immature granulocytes (Bld) [#/Vol] 10*3/uL Normal <0.10 [facility] Comment on above: Order Comment: Speci men Type: BLOOD SPECIMENOrdering Facility: [facility] Address: [address] [place] [address] Performed By: #### 5 7021-8 ####[facility] LABCLIA [id number] [place] [address] [place] Immature granulocytes/100 WBC (Bld) 0.3 % Normal [facility] Comment on above: Order Comment: Speci men Type: BLOOD SPECIMENOrdering Facility: [facility] Address: [address] [place] [address] Performed By: #### 5 7021-8 ####[facility] LABCLIA [id number] [place] [address] [place] Lymphocytes (Bld) [#/Vol] 2.47 10*3/uL Normal 1.00-4.00 [facility] Comment on above: Order Comment: Speci men Type: BLOOD SPECIMENOrdering Facility: [facility] Address: [address] [place] [address] Performed By: #### 5 7021-8 ####[facility] LABCLIA [id number] [place] [address] [place] Lymphocytes/100 WBC (Bld) 41.3 % Normal [facility] Comment on above: Order Comment: Speci men Type: BLOOD SPECIMENOrdering Facility: [facility] Address: [address] [place] [address] Performed By: #### 5 7021-8 ####[facility] LABIA [id number] [place] [address] [place] MCH (RBC) [Entitic mass] 29.2 pg Normal 26.0-34.0 [facility] Comment on above: Order Comment: Speci men Type: BLOOD SPECIMENOrdering Facility: [facility] Address: [address] [place] [address] Performed By: #### 5 7021-8 ####[facility] LABIA [id number] [place] [address] [place] MCHC (RBC) [Mass/Vol] 34.5 g/dL Normal 30.5-36.0 [facility] Comment on above: Order Comment: Speci men Type: BLOOD SPECIMENOrdering Facility: [facility] Address: [address] [place] [address] Performed By: #### 5 7021-8 ####[facility] LABIA [id number] [place] [address] [place] MCV (RBC) [Entitic vol] 84.7 fL Normal 80.0-100.0 C [facility] Comment on above: Order Comment: Speci men Type: BLOOD SPECIMENOrdering Facility: [facility] Address: [address] [place] [address] Performed By: #### 5 7021-8 ####[facility] LABIA [id number] [place] [address] [place] Monocytes (Bld) [#/Vol] 0.23 10*3/uL Normal <0.87 [facility] Comment on above: Order Comment: Speci men Type: BLOOD SPECIMENOrdering Facility: [facility] Address: [address] [place] [address] Performed By: #### 5 7021-8 ####[facility] LABCLIA [id number] [place] [id number] [place] Monocytes/100 WBC (Bld) 3.8 % Normal [facility] Comment on above: Order Comment: Speci men Type: BLOOD SPECIMENOrdering Facility: [facility] Address: [address] [place] [address] Performed By: #### 5 7021-8 ####[facility] LABCLIA [id number] [place] [address] [place] Neutrophils (Bld) [#/Vol] 3.15 10*3/uL Normal 1.45-7.50 [facility] Comment on above: Order Comment: Speci men Type: BLOOD SPECIMENOrdering Facility: [facility] Address: [address] [place] [address] Performed By: #### 5 7021-8 ####[facility] LABIA [id number] [place] [address] [place] Neutrophils/100 WBC (Bld) 52.8 % Normal [facility] Comment on above: Order Comment: Speci men Type: BLOOD SPECIMENOrdering Facility: [facility] Address: [address] [place] [address] Performed By: #### 5 7021-8 ####[facility] LABIA [id number] [place] [address] [place] Nucleated RBC (Bld) [#/Vol] 10*3/uL Normal <0.01 [facility] Comment on above: Order Comment: Speci men Type: BLOOD SPECIMENOrdering Facility: [facility] Address: [address] [place] [address] Performed By: #### 5 7021-8 ####[facility] LABCLIA [id number] [place] [address] [place] Nucleated RBC/100 WBC (Bld) [Ratio] 0.0 /100 WBC Normal [facility] Comment on above: Order Comment: Speci men Type: BLOOD SPECIMENOrdering Facility: [facility] Address: [address] [place] [address] Performed By: #### 5 7021-8 ####[facility] LABIA [id number] [place] [address] [place] Platelet mean volume (Bld) [Entitic vol] 10.5 fL Normal 9.0-12.7 [facility] Comment on above: Order Comment: Speci men Type: BLOOD SPECIMENOrdering Facility: [facility] Address: [address] [place] [address] Performed By: #### 5 7021-8 ####[facility] LABIA [id number] [place] [address] [place] Platelets (Bld) [#/Vol] 304 10*3/uL Normal 150-400 [facility] Comment on above: Order Comment: Speci men Type: BLOOD SPECIMENOrdering Facility: [facility] Address: [address] [place] [address] Performed By: #### 5 7021-8 ####[facility] LABIA [id number] [place] [address] [place] RBC (Bld) [#/Vol] 4.89 10*6/uL Normal 3.90-5.[address] [facility] Comment on above: Order Comment: Speci men Type: BLOOD SPECIMENOrdering Facility: [facility] Address: [address] [place] [address] Performed By: #### 5 7021-8 ####[facility] LABIA [id number] [place] [address] [place] WBC (Bld) [#/Vol] 5.98 10*3/uL Normal 3.70-11.[address] [facility] Comment on above: Order Comment: Speci men Type: BLOOD SPECIMENOrdering Facility: [facility] Address: [address] [place] [address] Performed By: #### 5 7021-8 ####[facility] TALITA [id number] [address] STATES OF [facility] CNOVon 02-14-2025 CNOV Office Visit (WOU[facility]) SHAWANDA BRINK ([id number]) 1 F Date Time Provider Department 02/14/25 4:30 PM JAMAL CORTEZ During your visit today, we recorded the following information about you: Temperature Pulse Respiration Blood pressure 97.3 degrees 87/minute 18/minute 135/85 Weight 75.6 kg Jamal Cortez APRN.MILL RECORDER 02/14/2025 7:09 PM Signed [facility] Subjective Shawanda Savnanah Brink is a 19 year old female. Patient presents with: Sore Throat: Fever, AKERS, neck pain, pressure in ears and dizziness x8 days HPI Nontoxic-appearing female presents urgent care chief complaint not feeling well. States has had intermittent headaches neck pain ear pressure sore throat and fever. Was seen at urgent care initially and diagnosed with otitis media. Placed on Augmentin. Did take that for 2 days. Was seen in the ED the following day. Was told she did not have ear infection and can discontinue antibiotic. 2 days later she followed up at this urgent care. Diagnosed with strep throat. Had a fever 102 at that point. This is day 5 of amoxicillin. States she still has a sore throat and is not feeling well. Has some intermittent dizziness. States dizziness is not new for her has had this for quite some time is being evaluated by PCP for dizziness. Denies any chest pain shortness of breath productive cough pleuritic pain nausea vomiting abdominal pain. Denies chance of . Is currently breast-feeding 1-year-old. Denies any difficulty swallowing handle secretions decreased range of motion of neck or trismus. Past medical history prescription medications allergies reviewed Review of Systems Constitutional: Positive for fatigue and fever. Negative for chills and diaphoresis. HENT: Positive for sore throat. Negative for congestion, drooling, ear discharge, ear pain, rhinorrhea, sinus pressure, sinus pain, sneezing, trouble swallowing and voice change. Eyes: Negative for pain, discharge, redness, itching and visual disturbance. Respiratory: Negative for cough, chest tightness, shortness of breath and wheezing. Cardiovascular: Negative for chest pain. Gastrointestinal: Negative for abdominal distention, abdominal pain, blood in stool, constipation, diarrhea, nausea and vomiting. Genitourinary: Negative for difficulty urinating and dysuria. Musculoskeletal: Negative for arthralgias, joint swelling, neck pain and neck stiffness. Skin: Negative for rash. Neurological: Positive for dizziness and headaches. Negative for weakness and numbness. Objective BP 135/85 Pulse 87 Temp 36.3 ?C (97.3 ?F) Resp 18 Wt 75.6 kg (166 lb 10.7 oz) LMP 11/04/2021 SpO2 98% BMI 27.87 kg/m? Physical Exam Constitutional: Appearance: Normal appearance. HENT: Head: Normocephalic. Jaw: No trismus, tenderness, swelling or pain on movement. Right Ear: Tympanic membrane, ear canal and external ear normal. Left Ear: Tympanic membrane, ear canal and external ear normal. Nose: No congestion. Mouth/Throat: Mouth: Mucous membranes are moist. Pharynx: Oropharynx is clear. Uvula midline. No oropharyngeal exudate or posterior oropharyngeal erythema. Eyes: Conjunctiva/sclera: Conjunctivae normal. Cardiovascular: Rate and Rhythm: Normal rate. Pulmonary: Effort: Pulmonary effort is normal. Breath sounds: Normal breath sounds. No wheezing, rhonchi or rales. Abdominal: Palpations: Abdomen is soft. Tenderness: There is no abdominal tenderness. There is no guarding or rebound. Musculoskeletal: General: Normal range of motion. Cervical back: Normal range of motion and neck supple. No edema, erythema or rigidity. No pain with movement. Normal range of motion. Lymphadenopathy: Cervical: Cervical adenopathy present. Skin: General: Skin is warm. Findings: No rash. Neurological: General: No focal deficit present. Mental Status: She is alert and oriented to person, place, and time. Mental status is at baseline. {ASSESSMENT/PLAN: 1. Pharyngitis, unspecified etiology - ICD9: 462, ICD10: J02.9 (primary diagnosis) - MONOTEST, INFECTIOUS MONO - COMPLETE BLOOD COUNT AND DIFFERENTIAL - COMPREHENSIVE METABOLIC PANEL 2. Viral illness - ICD9: 079.99, ICD10: B34.9 Diagnosis pharyngitis. Will test for mono due to persistent sore throat and fevers. CBC and CMP was ordered as well due to persistent illness. New viral illness versus prolonged bacterial infection. At this time suspicious for new viral illness. Patient was encouraged to follow-up with PCP 2 to 3 days for reevaluation. Patient was educated on supportive therapies. Patient will follow up with primary care provider as needed. Patient was instructed to immediately proceed to emergency room for any new, worsening, or symptoms lasting longer than anticipated. The patient's clinical presentation is otherwise unremarkable at (more content not included)... Normal [facility] 02-14-2025 CNPN Telephone (Appboy) SHAWANDA BRINK ([id number]) 1 F Date Time Provider Department 02/14/25 [facility] During your visit today, we recorded the following information about you: Bela Martinez RN 02/14/2025 12:40 PM Signed Patient calling in. Reports continued sx's of low grade fever, sore throat, sores present on upper throat and tonsils, myalgias, neck discomfort. Initially was treated with a 7-day course of Augmentin; took 3 doses before stopping on advice from an ER doctor. Was seen in on 02/10 and ordered amoxicillin. Currently on day 4 of this and very little improvement, if at all. Voices concern. Appt advised. No appts available within time frame pt prefers. Pt states she will go to today for further evaluation. Bela Martinez RN Allergies As of Date: 02/14/2025 Noted Allergy Reaction CELEXA (CITALOPRAM) 03/21/2024 14 - Other: See Comments Comments: Tunnel vision LEXAPRO (ESCITALOPRAM) 03/21/2024 2 - Rash Date Reviewed: 02/10/2025 Reviewed by: Janett Pino MA - Fully Assessed Reason for Visit: Patient Update [1234] Prescriptions as of 02/14/2025 - meclizine (ANTIVERT) 25 mg tab - fluticasone (FLONASE) 50 mcg/actuation nasal spray - amoxicillin (AMOXIL) 500 mg capsule Take 1 capsule by mouth two times a day for 10 days. - amitriptyline (ELAVIL) 10 mg tablet Take 1 tablet by mouth daily at bedtime. - SUMAtriptan (IMITREX) 50 mg tablet Take 1 tablet by mouth as needed for migraine headache (see administration instructions). May repeat dose after 2 hours if needed. Maximum daily dose is 200 mg per day. - FLUoxetine (PROZAC) 20 mg capsule Take 1 capsule by mouth once daily. Problem List As Of Date 02/14/2025 Noted Resolved Acne vulgaris [L70.0] 08/18/2015 Mild persistent asthma without complication [J4*09/27/2016 Flat foot [M21.40] 07/20/2017 Influenza vaccine refused [Z28.21] 07/20/2017 Depression [F32.A] 08/04/2021 Generalized anxiety disorder [F41.1] 08/04/2021 Encounter Status:Closed by BELA MARTINEZ on 02/14/25 Normal [facility] Comprehensive metabolic 2000 panelon 02-14-2025 Albumin [Mass/Vol] 4.5 g/dL Normal 3.9-4.9 [facility] Comment on above: Order Comment: Speci men Type: BLOOD SPECIMENOrdering Facility: [facility] Address: [address] [place] [address] Performed By: #### 2 4323-8 ####[facility]CLIA [id number] [place] [address] [place] ALP [Catalytic activity/Vol] 90 U/L Normal 34-123 [facility] Comment on above: Order Comment: Speci men Type: BLOOD SPECIMENOrdering Facility: [facility] Address: [address] [id number] Performed By: #### 2 4323-8 ####[facility]CL[facility] [id number] [address] [address] [place] ALT [Catalytic activity/Vol] 14 U/L Normal 7-38 [facility] Comment on above: Order Comment: Speci men Type: BLOOD SPECIMENOrdering Facility: [facility] Address: [address] [place] [address] Performed By: #### 2 4323-8 ####[facility]CL[facility] [id number] [place] [id number] [place] Anion gap [Moles/Vol] 13 mmol/L Normal 8-15 [facility] Comment on above: Order Comment: Speci men Type: BLOOD SPECIMENOrdering Facility: [facility] Address: [address] [place] [address] Performed By: #### 2 4323-8 ####[facility]CL[facility] [id number] [place] [address] [place] AST [Catalytic activity/Vol] 15 U/L Normal 13-35 [facility] Comment on above: Order Comment: Speci men Type: BLOOD SPECIMENOrdering Facility: [facility] Address: [address] [place], [place] [id number] Performed By: #### 2 4323-8 ####[facility] [id number] [address] [address] [place] Bilirubin [Mass/Vol] 0.3 mg/dL Normal 0.2-1.3 [facility] Comment on above: Order Comment: Speci men Type: BLOOD SPECIMENOrdering Facility: [facility] Address: [address] [place], [place] [id number] Performed By: #### 2 4323-8 ####[facility] [id number] [address] [address] [place] Calcium [Mass/Vol] 9.6 mg/dL Normal 8.5-10.2 [facility] Comment on above: Order Comment: Speci men Type: BLOOD SPECIMENOrdering Facility: [facility] Address: [address] [place] [address] Performed By: #### 2 4323-8 ####[facility]CL[facility] [id number] [place] [id number] [place] Chloride [Moles/Vol] 101 mmol/L Normal 98-107 [facility] Comment on above: Order Comment: Speci men Type: BLOOD SPECIMENOrdering Facility: [facility] Address: [address] [place] [address] Performed By: #### 2 4323-8 ####[facility] [id number] [place] [address] [place] CO2 [Moles/Vol] 25 mmol/L Normal 22-30 [facility] Comment on above: Order Comment: Speci men Type: BLOOD SPECIMENOrdering Facility: [facility] Address: [address] [place] [address] Performed By: #### 2 4323-8 ####[facility] [id number] [place] [id number] [place] Creatinine [Mass/Vol] 0.71 mg/dL Normal 0.58-0.96 [facility] Comment on above: Order Comment: Speci men Type: BLOOD SPECIMENOrdering Facility: [facility] Address: [address] [place], [place] [id number] Performed By: #### 2 4323-8 ####[facility] [id number] [place] [id number] [place] eGFRcr SerPlBld CKD-EPI 2020 124 mL/min/1.73m??? Normal >=60 [facility] Comment on above: Order Comment: Speci men Type: BLOOD SPECIMENOrdering Facility: [facility] Address: [address] [place] [address] Result Comment: Lizzy mated Glomerular Filtration Rate (eGFR) is calculated using the 2020 CKD-EPI creatinine equation. This equation utilizes serum creatinine, sex, and age as parameters. The creatinine assay has traceable calibration to isotope dilution-mass spectrometry. Refer to KDIGO guidelines for clinical interpretation. In patients with unstable renal function, e.g. those with acute kidney injury, the eGFR may not accurately reflect actual GFR. Performed By: #### 2 4323-8 ####[facility]CLIA [id number] [place] [address] [place] Glucose [Mass/Vol] 72 mg/dL Low 74-99 [facility] Comment on above: Order Comment: Isaiah velasquez Type: BLOOD SPECIMENOrdering Facility: [facility] Address: [address] [place] [address] Result Comment: The [place] [employer] (ADA) provides guidance for cutoff values for fasting glucose and random glucose. The ADA defines fasting as no caloric intake for at least 8 hours. Fasting plasma glucose results between 100 to 125 mg/dL indicate increased risk for diabetes (prediabetes). Fasting plasma glucose results greater than or equal to 126 mg/dL meet the criteria for diagnosis of diabetes. In the absence of unequivocal hyperglycemia, results should be confirmed by repeat testing. In a patient with classic symptoms of hyperglycemia or hyperglycemic crisis, random plasma glucose results greater than or equal to 200 mg/dL meet the criteria for diagnosis of diabetes. Reference: Standards of Medical Care in Diabetes 2016, [place] [employer]. Diabetes Care. 2016.39(Suppl 1). Performed By: #### 2 4323-8 ####[facility] [id number] [place] [id number] [place] Potassium [Moles/Vol] 4.1 mmol/L Normal 3.7-5.1 [facility] Comment on above: Order Comment: Isaiah velasquez Type: BLOOD SPECIMENOrdering Facility: [facility] Address: [address] [place] [address] Performed By: #### 2 4323-8 ####[facility] LABIA [id number] [place] [address] [place] Protein [Mass/Vol] 7.5 g/dL Normal 6.3-8.0 [facility] Comment on above: Order Comment: Speci men Type: BLOOD SPECIMENOrdering Facility: [facility] Address: [address] [place] [address] Performed By: #### 2 4323-8 ####[facility] LABIA [id number] [place] [address] [place] Sodium [Moles/Vol] 139 mmol/L Normal 136-144 [facility] Comment on above: Order Comment: Speci men Type: BLOOD SPECIMENOrdering Facility: [facility] Address: [address] [place] [address] Performed By: #### 2 4323-8 ####[facility] LABIA [id number] [place] [address] [place] Urea nitrogen [Mass/Vol] 11 mg/dL Normal 7-21 [facility] Comment on above: Order Comment: Speci men Type: BLOOD SPECIMENOrdering Facility: [facility] Address: [address] [place] [address] Performed By: #### 2 4323-8 ####[facility] LABIA [id number] [place] [address] [place] Heteroph Ab Ser Ql LAon 07-3 Heterophile Ab LA Ql (S) Negative Normal Negative [facility] Comment on above: Order Comment: Speci men Type: BLOOD SPECIMENOrdering Facility: [facility] Address: [address] [place] [address] Result Comment: Infe ctious Mononucleosis rapid test is used as an aid in diagnosis of acute infection with Autumn-Almanzar virus (EBV). The antibody levels may occasionally remain elevated up to several months after a primary EBV infection. Final interpretation should be done in conjunction with EBV-specific serology and clinical correlation. False positive results may occasionally be seen with other infectious agents such as Cytomegalovirus, Toxoplasma, and HIV among others as well as non-infectious conditions such as lymphoma. Clinical correlation is required. Performed By: #### 5 213-4 ####[facility] LABCLIA [id number] [place] [address] [place] Heterophile Ab LA Ql (S)Orde red By: Yue Lemus on 02-14-2025 Interpretation and review of laboratory results Normal [facility] MONOTEST, INFECTIOUS MONOOrd ered By: Yue Lemus on 02-14-2025 Heterophile Ab LA Ql (S) Negative Negative [facility] Comment on above: Infectious Mononucle osis rapid test is used as an aid in diagnosis of acute infection with Autumn-Almanzar virus (EBV). The antibody levels may occasionally remain elevated up to several months after a primary EBV infection. Final interpretation should be done in conjunction with EBV-specific serology and clinical correlation. False positive results may occasionally be seen with other infectious agents such as Cytomegalovirus, Toxoplasma, and HIV among others as well as non-infectious conditions such as lymphoma. Clinical correlation is required. LEANDROOVon 02-10-2025 CNOV Office Visit ([facility]) SHAWANDA BRINK ([id number]) 1 F Date Time Provider Department 02/10/25 1:00 PM SIERRA ALTAMIRANO During your visit today, we recorded the following information about you: Temperature Pulse Respiration Blood pressure 98.2 degrees 89/minute 18/minute 121/87 Weight 75.7 kg Sierra Altamirano APRN.MILL RECORDER 02/10/2025 1:20 PM Signed Make sure to finish all of the antibiotic as prescribed. Do not stop early even if you are feeling better as the infection may not fully resolve and bacteria may start to grow again. Rest as much as possible, eat nutritiously and drink plenty of non caffeinated fluids. Change your toothbrush in 3 days after beginning the antibiotic. Tylenol or Motrin as needed for pain. Salt water gargles, Cepacol lozenges or Chloraseptic spray may also be helpful for pain. Sierra Altamirano APRN.MILL RECORDER 02/10/2025 2:31 PM Signed Subjective Shawanda Brink is a 19 year old female. The history is provided by the patient. No statue maker was used. HPI Shawanda Brink is a 19 year old female who presents today for CC of headache, sore throat and fever that started Endy evening and is worsening. She was seen Sore Throat: - Symptoms include sore throat, fever, headache, body aches, and a dry cough. - Reports nausea. - Initially prescribed a 7-day course of Augmentin; took 3 doses before stopping on advice from an ER doctor. - Son, 1 year old, also sick with cough and congestion, had a fever the first day now gone Review of Systems Constitutional: Positive for chills, fatigue and fever. HENT: Positive for sore throat. Negative for congestion, rhinorrhea, sinus pain and sneezing. Respiratory: Negative for cough, shortness of breath and wheezing. Cardiovascular: Negative for chest pain. Musculoskeletal: Positive for myalgias. Negative for arthralgias. Skin: Negative for color change and rash. Neurological: Negative for headaches. Objective BP 121/87 Pulse 89 Temp 36.8 ?C (98.2 ?F) Resp 18 Wt 75.7 kg (166 lb 14.2 oz) LMP 11/04/2021 SpO2 99% BMI 27.91 kg/m? Physical Exam Vitals and nursing note reviewed. Constitutional: General: She is not in acute distress. Appearance: She is not diaphoretic. HENT: Head: Normocephalic and atraumatic. Right Ear: Tympanic membrane, ear canal and external ear normal. No middle ear effusion. Tympanic membrane is not injected, erythematous, retracted or bulging. Left Ear: Tympanic membrane, ear canal and external ear normal. No middle ear effusion. Tympanic membrane is not injected, erythematous, retracted or bulging. Nose: Nose normal. Right Sinus: No maxillary sinus tenderness or frontal sinus tenderness. Left Sinus: No maxillary sinus tenderness or frontal sinus tenderness. Mouth/Throat: Pharynx: Uvula midline. Pharyngeal swelling (mild) and posterior oropharyngeal erythema present. Eyes: Conjunctiva/sclera: Conjunctivae normal. Pupils: Pupils are equal, round, and reactive to light. Cardiovascular: Rate and Rhythm: Normal rate and regular rhythm. Heart sounds: Normal heart sounds. Pulmonary: Effort: Pulmonary effort is normal. No respiratory distress. Breath sounds: Normal breath sounds. No wheezing or rales. Musculoskeletal: Cervical back: Normal range of motion and neck supple. Lymphadenopathy: Head: Right side of head: No submental, submandibular, tonsillar, preauricular or posterior auricular adenopathy. Left side of head: No submental, submandibular, tonsillar, preauricular or posterior auricular adenopathy. Skin: General: Skin is dry. Neurological: Mental Status: She is alert and oriented to person, place, and time. History and Record Review External record(s) reviewed: prior inpatient record. Findings from review of inpatient records[facility] Systemic symptoms present included: fever Differential Diagnoses - strep is more likely for the following reason(s): consistent with laboratory studies - viral pharyngitis is less likely for the following reason(s): laboratory studies not suggestive ASSESSMENT/PLAN: 1. Strep pharyngitis - ICD9: 034.0, ICD10: J02.0 (primary diagnosis) - suspect strep - Group A strep molecular testing positive - Amoxicillin for 10 days. - Discussed supportive care treatment with fluids, rest and analgesia. - The patient may also use warm salt water gargles, throat lozenges and/or OTC throat spray as needed. - Contagious dz precautions discussed- including considered contagious until on antibiotics for 24 hours - The patient should follow up in one week if symptoms persist or worsen - Call back if drooling, increased temperature, symptoms of dehydration and/or still sick in one week 2. Sore throat - ICD9: 462, ICD10: J02.9 - STREP A MOLECULAR (POC) Diagnosis and treatment plan were discussed and (more content not included)... Normal [facility] STREP A MOLECULAR (POC)on Interpretation and review of laboratory results Abnormal [facility] Procedural Control Valid [facility] Strep A (POCT) Positive Abnormal Negative [facility] Basic Metabolic Profile (BMP )on 02-08-2025 BUN/CRE 13.5 RATIO Normal 10-20 [facility] Comment on above: Performed By: #### L 500.2500, L100.0100 #### [facility] [address] [place], [address] Calcium [Mass/Vol] 9.8 mg/dL Normal 7.6-11.0 [facility] Comment on above: Performed By: #### L 500.2500, L100.0100 #### [facility] [address] [place], [address] Chloride [Moles/Vol] 101 mmol/L Normal 98-108 [facility] Comment on above: Performed By: #### L 500.2500, L100.0100 #### [facility] [address] [place], [address] CO2 [Moles/Vol] 21.7 mmol/L Normal 21.0-32.0 [facility] Comment on above: Performed By: #### L 500.2500, L100.0100 #### [facility] [address] [place], [address] Creatinine [Mass/Vol] 0.71 mg/dL Normal 0.70-1.20 [facility] Comment on above: Performed By: #### L 500.2500, L100.0100 #### [facility] [address] [place], [address] ECRCL 124.18 ml/min Normal 50-250 [facility] Comment on above: Performed By: #### L 500.2500, L100.0100 #### [facility] [address] [place], [address] GAP 13 Normal 5-15 [facility] Comment on above: Performed By: #### L 500.2500, L100.0100 #### [facility] [address] [place], [address] GFR/1.73 sq M.predicted among non-blacks MDRD (S/P/Bld) [Vol rate/Area] 123 mL/min/{1.73_m2} Normal >60 [facility] Comment on above: Result Comment: mL/m in/1.73m2 CKD-EPI Creatinine Equation (2020) Performed By: #### L 500.2500, L100.0100 #### [facility] [address] [place], [address] Glucose [Mass/Vol] 115 mg/dL High 70-99 [facility] Comment on above: Performed By: #### L 500.2500, L100.0100 #### [facility] [address] [place], [address] Potassium [Moles/Vol] 4.0 mmol/L Normal 3.3-5.1 [facility] Comment on above: Performed By: #### L 500.2500, L100.0100 #### [facility] [address] [place], [address] Sodium [Moles/Vol] 136 mmol/L Normal 133-145 [facility] Comment on above: Performed By: #### L 500.2500, L100.0100 #### [facility] [address] [place], [address] Urea nitrogen [Mass/Vol] 10 mg/dL Normal 4-19 [facility] Comment on above: Performed By: #### L 500.2500, L100.0100 #### [facility] [address] [place], [address] CBC W/Diff, Automatedon 07-2 Absolute Lymph 0.66 X10 3/uL Low 0.83-4.51 [facility] Comment on above: Performed By: #### L 500.2500, L100.0100 #### [facility] [address] [place], [address] Absolute Neut 8.0 X10 3/uL High 2.0-7.7 [facility] Comment on above: Performed By: #### L 500.2500, L100.0100 #### [facility] [address] [place], [address] Basophils/100 WBC (Bld) 0.2 % Normal 0-1 [facility] Comment on above: Performed By: #### L 500.2500, L100.0100 #### [facility] [address] [place], [address] Eosinophils/100 WBC (Bld) 0.5 % Normal 0-5 [facility] Comment on above: Performed By: #### L 500.2500, L100.0100 #### [facility] [address] [place], [address] Erythrocyte distribution width (RBC) [Ratio] 12.2 % Normal 11.6-14.6 [facility] Comment on above: Performed By: #### L 500.2500, L100.0100 #### [facility] [address] [place], [address] Hematocrit (Bld) [Volume fraction] 40.9 % Normal 37-47 [facility] Comment on above: Performed By: #### L 500.2500, L100.0100 #### [facility] [address] [place], [address] Hemoglobin (Bld) [Mass/Vol] 14.0 g/dL Normal 12.0-15.0 [facility] Comment on above: Performed By: #### L 500.2500, L100.0100 #### [facility] [address] [place], [address] IG% 0.200 Normal 0.0-0.9 [facility] Comment on above: Result Comment: IG% - Immature Granulocytes (promyelocytes, myelocytes and metamyelocytes) > 1% indicates that a LEFT SHIFT is Present. Performed By: #### L 500.2500, L100.0100 #### [facility] [address] [place], [address] Lymphocytes/100 WBC (Bld) 7.2 % Low 19-41 [facility] Comment on above: Performed By: #### L 500.2500, L100.0100 #### [facility] [address] [place], [address] MCH (RBC) [Entitic mass] 28.9 pg Normal 27.0-32.0 [facility] Comment on above: Performed By: #### L 500.2500, L100.0100 #### [facility] [address] [place], [address] MCHC (RBC) [Mass/Vol] 34.2 g/dL Normal 32-36 [facility] Comment on above: Performed By: #### L 500.2500, L100.0100 #### [facility] [address] [place], [address] MCV (RBC) [Entitic vol] 84.5 fL Normal 81-99 [facility] Comment on above: Performed By: #### L 500.2500, L100.0100 #### [facility] [address] [place], [address] Monocytes/100 WBC (Bld) 4.5 % Normal 0-10 [facility] Comment on above: Performed By: #### L 500.2500, L100.0100 #### [facility] [address] [place], [address] Neutrophils/100 WBC (Bld) 87.4 % High 47-70 [facility] Comment on above: Performed By: #### L 500.2500, L100.0100 #### [facility] [address] [place], [address] Nucleated RBC (Bld) [#/Vol] 0 10*3/uL Normal 0-5 [facility] Comment on above: Performed By: #### L 500.2500, L100.0100 #### [facility] [address] [place], [address] Platelet mean volume (Bld) [Entitic vol] 10.7 fL Normal 6.2-12.0 [facility] Comment on above: Performed By: #### L 500.2500, L100.0100 #### [facility] [address] [place], [address] Platelets (Bld) [#/Vol] 216 10*3/uL Normal 150-450 [facility] Comment on above: Performed By: #### L 500.2500, L100.0100 #### [facility] [address] [place], [address] RBC (Bld) [#/Vol] 4.84 10*6/uL Normal 4.2-5.4 [facility] Comment on above: Performed By: #### L 500.2500, L100.0100 #### [facility] [address] [place], [address] RDW SD 36.9 fl Normal 35.1-43.9 [facility] Comment on above: Performed By: #### L 500.2500, L100.0100 #### [facility] [address] [place], [address] WBC (Bld) [#/Vol] 9.2 10*3/uL Normal 4.4-11.0 [facility] Comment on above: Performed By: #### L 500.2500, L100.0100 #### [facility] [address] 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 Tends to occur when she stands but also when she changes positions in some ways especially bending over and standing back up. Feels like movement a feeling of off balance, some fuzziness in her head. Yesterday she had an earache and went to urgent care was told she had a lot of cerumen in her ear, they flushed out looked at her eardrum which was red so they put her on an antibiotic she has had 2 doses so far. Her ears improved after all of that yesterday. She has had some minor headaches but nothing major. No fevers or chills. She is describing having a significant episode this morning that felt like lightheadedness, she agrees that she felt like she might pass out but also it felt like movement and she got little nauseated. She denies any focal neurologic symptoms other than those. [facility] Medical History Former smoker Hx of gestational diabetes in prior , currently Vaginal delivery hemorrhage depression Gestational diabetes Panic disorder Generalized anxiety disorder Bipolar 2 disorder Seasonal allergies Contraception management Anemia due to blood loss, acute hemorrhage macrosomia GBS (group B Streptococcus carrier), +RV culture, currently Gestational diabetes Anxiety Palpitations Supervision of high risk , antepartum Asthma Depression Home Medications ???Medication ???Instructions ???Recorded ???Last Taken ???Type amitriptyline 10 mg tablet 10 mg PO QHS 02/08/25 Unknown Hist ory amoxicillin 875 mg-potassium 1 tab PO BID 02/08/25 Unknown Hist ory clavulanate 125 mg tablet fluticasone propionate 50 1 spray intranasal BID #16 grams 0 02/08/25 Unknown Rx mcg/actuation nasal spray,suspension meclizine 25 mg tablet 25 mg PO TID PRN dizziness #20 tab s 02/08/25 Unknown Rx Allergy/AdvReac Type Severity Reaction Status Date / Time No Known Allergies Allergy Verified 02/08/25 13:29 Family History Grandmother Cervical cancer, Onset Age: 40 maternal Family history of recurrent miscarriage maternal- 2 miscarriages Grandfather Myocardial infarction Father Heart disease Mother Family history of recurrent miscarriage 2 miscarriages Aunt Family history of recurrent miscarriage Maternal- 2 miscarriages Social History adopted: No household members: significant other and children housing: house number of children: 1 current occupational status: employed current occupation: Will be starting at [employer] current occupational exposures/hazards: No pets and animals: No (not managing litterbox while ) history of recent travel: No ([place]) sexually active: Yes Smoking Status: Former smoker how long ago did patient quit smoking: Quit 04/08 alcohol intake: never substance use type: does not use well-balanced diet: daily or most days caffeine: No (ocassional) eating out: 1-3 times/week during the past year weight has: increased > 10 lbs what type of physical activity do you participate in: none jenni/rastafari: [employer] seatbelt use: always do you feel safe at home: Yes additional social history: [employer]ura Valderr[employer] ROS ROS ED Constitutional Constitutional ED: Denies chills or fever(s) Eyes Eyes: Denies blurry vision, change in vision or diplopia ENT ENT ED: Reports as per HPI, disequillibrium, dizziness and ear pain right (Better now/today); Denies rhinorrhea or sore throat Cardiovascular Cardiovascular: Denies chest pain or palpitations Respiratory/Chest Respiratory/Chest: Denies cough or dyspnea Gastrointestinal Gastrointestinal: Reports nausea; Denies abdominal pain, diarrhea or vomiting Genitourinary Genitourinary ED: Denies dysuria or hematuria Musculoskeletal Musculoskeletal: Denies back pain or neck pain Integumentary Denies abscess or rash Neurologic Neurologic: Reports headache(s); Denies paresthesias or weakness Psychiatric Psychiatric: Denies suicidal thoughts EXAM Physical Exam Const Vital Signs: 02/08/25 13:27 02/08/25 14:06 02/08/25 14:27 Temperature 98.6 F Temperature Source Oral Pulse Rate 90 80 (more content not included)... Normal [facility] 02-07-2025 [facility] Office Visit (WOUCA) SHAWANDA BRINK ([id number]) 1 F Date Time Provider Department 02/07/25 10:30 AM ROHAN VILLALBA During your visit today, we recorded the following information about you: Temperature Pulse Respiration Blood pressure 97.7 degrees 81/minute 18/minute 126/83 Weight 77 kg Rohan Villalba APRN.[facility] 02/07/2025 11:42 AM Signed Subjective Patient ID: Shawanda is a 19 year old female who presents for Ear Problem (Bilateral ear pressure x4 days, head pressure x1 month). The history is provided by the patient. No statue maker was used. Patient presents to from home via personal vehicle with bilateral ear pain since Tuesday +no injury +pressure like pain No OTC meds PMH: migraines, asthma, depression, anxiety No daily meds PSH: none Allergic to lexapro and celexa LMP: x2y ago, +, No bc Former vape use, no ETOH and street drugs PAST MEDICAL HISTORY Diagnosis Date Acne vulgaris 08/18/2015 Anxiety Bipolar 2 disorder (HCC) Cough variant asthma (HCC) 09/27/2016 Depression Migraines PMH - PAST MEDICAL HISTORY OF vascular rose left ankle PAST SURGICAL HISTORY Procedure Laterality Date NONE ALLERGIES Celexa [Citalopram] and Lexapro [Escitalopram] MEDICATIONS amitriptyline (ELAVIL) 10 mg tablet Take 1 tablet by mouth daily at bedtime. SUMAtriptan (IMITREX) 50 mg tablet Take 1 tablet by mouth as needed for migraine headache (see administration instructions). May repeat dose after 2 hours if needed. Maximum daily dose is 200 mg per day. FLUoxetine (PROZAC) 20 mg capsule Take 1 capsule by mouth once daily. FAMILY HISTORY Problem Relation Age of Onset Ange Disease Mother other (pulmnary embolism) Father other (mass on liver) Father other (depression and anxiety) Maternal Grandmother Cervical Cancer Maternal Grandmother other ([place]) Maternal Grandfather 49 other (depression and anxiety) Paternal Grandmother Bipolar disorder Paternal Grandmother Anxiety disorder Paternal Grandfather Cancer Other PATERNAL AND MATERNAL SIDES Diabetes Other PATERNAL AND MATERNAL SIDES other (CLOTTING DISORDER) Other PATERNAL SIDE - FACTOR 5 DISORDER Paternal great aunt Social History Tobacco Use Smoking status: Never Smokeless tobacco: Never Vaping Use Vaping status: Never Used Substance Use Topics Alcohol use: Never Drug use: Never Objective BP 126/83 Pulse 81 Temp 36.5 ?C (97.7 ?F) Resp 18 Wt 77 kg (169 lb 12.1 oz) LMP 11/04/2021 SpO2 100% BMI 28.39 kg/m? Physical Exam Vitals and nursing note reviewed. Constitutional: General: She is awake. Appearance: Normal appearance. She is well-groomed. HENT: Head: Normocephalic. Right Ear: Tenderness present. There is impacted cerumen. Left Ear: Hearing, tympanic membrane and external ear normal. No tenderness. There is impacted cerumen. Nose: Right Sinus: Maxillary sinus tenderness and frontal sinus tenderness present. Left Sinus: Maxillary sinus tenderness and frontal sinus tenderness present. Mouth/Throat: Lips: [place]. No lesions. Mouth: Mucous membranes are moist. Dentition: No gum lesions. Pharynx: Oropharynx is clear. Tonsils: 1+ on the right. 1+ on the left. Eyes: General: Lids are normal. Extraocular Movements: Extraocular movements intact. Pupils: Pupils are equal, round, and reactive to light. Neck: Trachea: Trachea normal. Cardiovascular: Rate and Rhythm: Normal rate. Pulses: Normal pulses. Radial pulses are 2+ on the right side and 2+ on the left side. Heart sounds: Normal heart sounds. Pulmonary: Effort: Pulmonary effort is normal. Breath sounds: Normal breath sounds and air entry. Abdominal: General: Bowel sounds are normal. Palpations: Abdomen is soft. Tenderness: There is no abdominal tenderness. Musculoskeletal: General: Normal range of motion. Cervical back: Full passive range of motion without pain and normal range of motion. Lymphadenopathy: Cervical: No cervical adenopathy. Skin: General: Skin is warm and dry. Capillary Refill: Capillary refill takes less than 2 seconds. Neurological: General: No focal deficit present. Mental Status: She is alert and oriented to person, place, and time. GCS: GCS eye subscore is 4. GCS verbal subscore is 5. GCS motor subscore is 6. Gait: Gait is intact. Psychiatric: Mood and Affect: Mood normal. Behavior: Behavior normal. Behavior is cooperative. Thought Content: Thought content normal. Judgment: Judgment normal. Assessment AND Plan ASSESSMENT/PLAN: 1. Impacted cerumen of right ear - ICD9: 380.4, ICD10: H61.21 - REMOVAL OF IMPACTED CERUMEN - INSTRUMENTATION - ear lavage performed, patient tolerated well with significant amount of earwax removed 2. Rhinosinusitis - ICD9: 473.9, ICD10: J32.9 - AMOXICILLIN 875 MG-POTASSIUM CLAVULANATE (more content not included)... Normal [facility] MR Brain WO contraston 01-31 IMPRESSION: No evidence of an intracranial acute process. Unremarkable appearance of the cerebral white matter. Lifter/Driver: [facility] Transcribe Date/Time: Jan 31 2025 8:48A Dictated by : ISSAC GEIGER MD This examination was interpreted and the report reviewed and electronically signed by: ISSAC GEIGER MD on Jan 31 2025 8:52AM [facility] DIVISION OF RADIOLOGY * * *Final Report* * * DATE OF EXAM: Jan 31 2025 8:30AM [facility] 0294 - MRI BRAIN WO IVCON / PROCEDURE REASON: multiple diagnoses * * * * Physician Interpretation * * * * EXAMINATION: MRI BRAIN WO IVCON CLINICAL HISTORY: Migraine without status migrainosus, not intractable, unspecified migraine type . Unsteadiness on feet. Numbness and tingling TECHNIQUE: Routine noncontrast MRI protocol including diffusion images. MQ: MRBWO_2 COMPARISON: None. RESULT: Acute Change: There is no evidence of restricted diffusion to suggest an acute infarct. Hemorrhage: No evidence of prior parenchymal hemorrhage on the susceptibility weighted images. Mass Lesion/ Mass Effect: No evidence of an intracranial mass or extra-axial fluid collection. No significant mass effect. White matter: The white matter is within normal limits of signal intensity for age. Parenchyma: No significant volume loss for age. The brain parenchyma is otherwise within normal limits of signal intensity and morphology. Ventricles: Normal caliber and morphology. Skull Base: Hypothalamic and pituitary region are grossly normal. Craniocervical junction is normal. No significant marrow replacement process. Vasculature: Major intracranial arterial structures, and dural venous sinuses show typical flow void, suggesting patency by spin echo criteria. Other: Minimal paranasal sinus mucosal thickening. Trace fluid in the left mastoid air cells. The orbits and extracranial soft tissues are unremarkable. DIVISION OF RADIOLOGY Provider, [facility] - 01/31/2025 * * *Final Report* * * DATE OF EXAM: Jan 31 2025 8:30AM [facility] 0294 - MRI BRAIN WO IVCON / PROCEDURE REASON: multiple diagnoses * * * * Physician Interpretation * * * * EXAMINATION: MRI BRAIN WO IVCON CLINICAL HISTORY: Migraine without status migrainosus, not intractable, unspecified migraine type . Unsteadiness on feet. Numbness and tingling TECHNIQUE: Routine noncontrast MRI protocol including diffusion images. MQ: MRBWO_2 COMPARISON: None. RESULT: Acute Change: There is no evidence of restricted diffusion to suggest an acute infarct. Hemorrhage: No evidence of prior parenchymal hemorrhage on the susceptibility weighted images. Mass Lesion/ Mass Effect: No evidence of an intracranial mass or extra-axial fluid collection. No significant mass effect. White matter: The white matter is within normal limits of signal intensity for age. Parenchyma: No significant volume loss for age. The brain parenchyma is otherwise within normal limits of signal intensity and morphology. Ventricles: Normal caliber and morphology. Skull Base: Hypothalamic and pituitary region are grossly normal. Craniocervical junction is normal. No significant marrow replacement process. Vasculature: Major intracranial arterial structures, and dural venous sinuses show typical flow void, suggesting patency by spin echo criteria. Other: Minimal paranasal sinus mucosal thickening. Trace fluid in the left mastoid air cells. The orbits and extracranial soft tissues are unremarkable. IMPRESSION IMPRESSION: No evidence of an intracranial acute process. Unremarkable appearance of the cerebral white matter. Lifter/Driver: [facility] Transcribe Date/Time: Jan 31 2025 8:48A Dictated by : ISSAC GEIGER MD This examination was interpreted and the report reviewed and electronically signed by: ISSAC GEIGER MD on Jan 31 2025 8:52AM EST [facility] Radiology Study [facility] (narrative) [facility] Brain WO contrastOrdered By: [facility] Provider on 01-31-2025 [facility] MRI BRAIN WO IVCONon 025 MRI BRAIN WO IVCON * * *Final Report* * * DATE OF EXAM: Jan 31 2025 8:30AM [facility] 0294 - MRI BRAIN WO IVCON / PROCEDURE REASON: multiple diagnoses * * * * Physician Interpretation * * * * EXAMINATION: MRI BRAIN WO IVCON CLINICAL HISTORY: Migraine without status migrainosus, not intractable, unspecified migraine type . Unsteadiness on feet. Numbness and tingling TECHNIQUE: Routine noncontrast MRI protocol including diffusion images. MQ: MRBWO_2 COMPARISON: None. RESULT: Acute Change: There is no evidence of restricted diffusion to suggest an acute infarct. Hemorrhage: No evidence of prior parenchymal hemorrhage on the susceptibility weighted images. Mass Lesion/ Mass Effect: No evidence of an intracranial mass or extra-axial fluid collection. No significant mass effect. White matter: The white matter is within normal limits of signal intensity for age. Parenchyma: No significant volume loss for age. The brain parenchyma is otherwise within normal limits of signal intensity and morphology. Ventricles: Normal caliber and morphology. Skull Base: Hypothalamic and pituitary region are grossly normal. Craniocervical junction is normal. No significant marrow replacement process. Vasculature: Major intracranial arterial structures, and dural venous sinuses show typical flow void, suggesting patency by spin echo criteria. Other: Minimal paranasal sinus mucosal thickening. Trace fluid in the left mastoid air cells. The orbits and extracranial soft tissues are unremarkable. IMPRESSION: No evidence of an intracranial acute process. Unremarkable appearance of the cerebral white matter. Lifter/Driver: [facility] Transcribe Date/Time: Jan 31 2025 8:48A Dictated by : ISSAC GEIGER MD This examination was interpreted and the report reviewed and electronically signed by: ISSAC GEIGER MD on Jan 31 2025 8:52AM EST [id number] Normal [facility] CNOVon 01-25-2025 CNOV Office Visit (FAMPWS ) SHAWANDA BRINK ([id number]) 1 F Date Time Provider Department 01/25/25 10:00 AM ISSAC FERNÁNDEZ During your visit today, we recorded the following information about you: Pulse Blood pressure Weight Height 72/minute 120/86 76.8 kg 1.647 m Issac Fernández MD 01/25/2025 10:46 AM Signed Chief Complaint Patient presents with: Follow Up Recording using HAL[employer] software for draft documentation of the visit was discussed with the patient/authorized billing customer service representative; all questions welcomed and answered. Patient/authorized billing customer service representative agreed to proceed HPI Shawanda Brink is a 19 year old female who presents here today for multiple complaints. Palpitations: - Onset a few months ago. - Holter monitor for 2 weeks was normal. - Stopped taking propranolol 40 mg BID two days ago due to concerns about low heart rate (42-43 bpm at rest). Headaches: - Onset in August, initially 1-2 times/week, increased to 3-5 times/week, now occurring almost daily. - Described as mild, strained headaches, located behind the eyes. - Alleviated by ibuprofen or Tylenol, but recur after 6-8 hours. - Denies current migraine headaches; previously experienced 8-10 severe headaches per month, lasting 3-5 days each. Dizziness: - Onset in August, initially intermittent, now constant with only 2 hours/day without dizziness. - Described as feeling unsteady and foggy, not associated with room spinning or lightheadedness. - Worse when standing up or sitting down. Vision Changes: - Onset in August, described as off vision, progressively worsening. - Reports blurry vision, floaters, and flashing lights in peripheral vision. - No eye pain, redness, or drainage. - Denies black spots in vision. - Scheduled to see an eye doctor on February 09. Paresthesias: - Onset in 2022, initially in the left shoulder blade, now spreading to the left side of the spine and lower legs. - Described as pins and needles sensation, occurring randomly without a known trigger. - Denies slurred speech or facial droop. Muscle Weakness: - Describes limbs as feeling heavy and cemented, making it difficult to walk and perform daily activities. - Not severe enough to prevent lifting limbs. 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 Past medical history, appointments, medications, allergies reviewed. Previous Medical History PAST MEDICAL HISTORY Diagnosis Date Acne vulgaris 08/18/2015 Anxiety Bipolar 2 disorder (HCC) Cough variant asthma (HCC) 09/27/2016 Depression Migraines PMH - PAST MEDICAL HISTORY OF vascular rose left ankle Previous Surgical History PAST SURGICAL HISTORY Procedure Laterality Date NONE Family History FAMILY HISTORY Problem Relation Age of Onset Ange Disease Mother other (pulmnary embolism) Father other (mass on liver) Father other (depression and anxiety) Maternal Grandmother Cervical Cancer Maternal Grandmother other ([place]) Maternal Grandfather 49 other (depression and anxiety) Paternal Grandmother Bipolar disorder Paternal Grandmother Anxiety disorder Paternal Grandfather Cancer Other PATERNAL AND MATERNAL SIDES Diabetes Other PATERNAL AND MATERNAL SIDES other (CLOTTING DISORDER) Other PATERNAL SIDE - FACTOR 5 DISORDER Paternal great aunt Patient Allergies ALLERGIES Allergen Reactions Celexa [Citalopram] Other: See Comments Tunnel vision Lexapro [Escitalopr* Rash Current Medications Current Outpatient Medications on File Prior to Visit Medication Sig SUMAtriptan (IMITREX) 50 mg tablet Take 1 tablet by mouth as needed for migraine headache (see administration instructions). May repeat dose after 2 hours if needed. Maximum daily dose is 200 mg per day. propranolol (INDERAL) 40 mg tablet Take 1 tablet by mouth two times a day. (Patient not taking: Reported on 01/25/2025) FLUoxetine (PROZAC) 20 mg capsule Take 1 capsule by mouth once daily. No current facility-administered medications on file prior to visit. Social History Social History Tobacco Use Smoking status: Never Smokeless tobacco: Never Vaping Use Vaping status: Never Used Substance Use Topics Alcohol use: Never Drug use: Never Review of Symptoms REVIEW OF SYSTEMS See HPI EXAM: BP 120/86 Pulse 72 Ht 164.7 cm (5' 4.84) Wt 76.8 kg (169 lb 6.4 oz) LMP 11/04/2021 SpO2 98% Yes BMI 28.33 kg/m? VISION SCREEN: OD 20/30 OS 20/40 OU 20/30 General Appearance: Well appearing, alert, in no acute distress, well-hydrated, well nourished.. Skin: Skin color, texture, turgor normal, no suspicious rashes or lesions. Eyes: Anicteric sclera. Pupils are equally round and reactive to light. Extraocular movements are intact. Funduscopic exam normal without dila (more content not included)... Normal [facility] SHAWANDA BRINK ([id number]) 1 F Date Time Provider Department 01/11/25 ISSAC FERNÁNDEZ [facility] During your visit today, we recorded the following information about you: Keli Myers RN 01/11/2025 8:40 AM Signed Pt called in and reports she has an ECHO scheduled today at 330. She has the 14 day Holter monitor on and has only had it on 10 days. She wants to know if she should take that off early, or reschedule her ECHO. Please call and advise. SHERLY Gold Amanda, RN 01/11/2025 10:12 AM Signed Per provider Veronica Muse SANDING MACHINE BUFFER, See if they can reschedule the ECHO for next week. If it going to be weeks or months I guess I'd have her remove it early.. Called and let Pt know. Pt was put through to scheduling. Keli Myers RN Allergies As of Date: 01/11/2025 Noted Allergy Reaction CELEXA (CITALOPRAM) 03/21/2024 14 - Other: See Comments Comments: Tunnel vision LEXAPRO (ESCITALOPRAM) 03/21/2024 2 - Rash Date Reviewed: 12/27/2024 Reviewed by: Nasima Martin MA - Fully Assessed Reason for Visit: Patient Question [4757] Prescriptions as of 01/11/2025 - propranolol (INDERAL) 40 mg tablet Take 1 tablet by mouth two times a day. - SUMAtriptan (IMITREX) 50 mg tablet Take 1 tablet by mouth as needed for migraine headache (see administration instructions). May repeat dose after 2 hours if needed. Maximum daily dose is 200 mg per day. - FLUoxetine (PROZAC) 20 mg capsule Take 1 capsule by mouth once daily. Problem List As Of Date 01/11/2025 Noted Resolved Acne vulgaris [L70.0] 08/18/2015 Mild persistent asthma without complication [J4*09/27/2016 Flat foot [M21.40] 07/20/2017 Influenza vaccine refused [Z28.21] 07/20/2017 Depression [F32.A] 08/04/2021 Generalized anxiety disorder [F41.1] 08/04/2021 Encounter Status:Closed by KELI MYERS on 01/11/25 Normal [facility] CBC W Auto Differential pane l (Bld)on 12-28-2024 Basophils (Bld) [#/Vol] 0.04 10*3/uL Normal <0.11 [facility] Comment on above: Order Comment: Speci men Type: BLOOD SPECIMENOrdering Facility: [facility] Address: [address] [place] [address] Performed By: #### 5 7021-8 ####[facility] LABIA [id number] [place] [address] [place] Basophils/100 WBC (Bld) 0.5 % Normal [facility] Comment on above: Order Comment: Speci men Type: BLOOD SPECIMENOrdering Facility: [facility] Address: [address] [place] [address] Performed By: #### 5 7021-8 ####[facility] [id number] [place] [address] [place] Differential cell count method Nom (Bld) Auto Normal [facility] Comment on above: Order Comment: Speci men Type: BLOOD SPECIMENOrdering Facility: [facility] Address: [address] [place] [address] Performed By: #### 5 7021-8 ####[facility] LABCLIA [id number] [facility] [address], [place] [address] [place] Eosinophils (Bld) [#/Vol] 0.24 10*3/uL Normal <0.46 [facility] Comment on above: Order Comment: Speci men Type: BLOOD SPECIMENOrdering Facility: [facility] Address: [address] [place] [address] Performed By: #### 5 7021-8 ####[facility] LABCLIA [id number] [facility] [address], [place] [address] [place] Eosinophils/100 WBC (Bld) 3.1 % Normal [facility] Comment on above: Order Comment: Speci men Type: BLOOD SPECIMENOrdering Facility: [facility] Address: [address] [place] [address] Performed By: #### 5 7021-8 ####[facility] LABCLIA [id number] [address], [place] [address] [place] Erythrocyte distribution width (RBC) [Ratio] 12.8 % Normal 11.5-15.0 [facility] Comment on above: Order Comment: Speci men Type: BLOOD SPECIMENOrdering Facility: [facility] Address: [address] [place] [address] Performed By: #### 5 7021-8 ####[facility] LABCLIA [id number] [address], [place] [address] [place] Hematocrit (Bld) [Volume fraction] 42.9 % Normal 36.0-46.0 [facility] Comment on above: Order Comment: Speci men Type: BLOOD SPECIMENOrdering Facility: [facility] Address: [address] [place] [address] Performed By: #### 5 7021-8 ####[facility] LABCLIA [id number] [address], [facility] [place] Hemoglobin (Bld) [Mass/Vol] 14.0 g/dL Normal 11.5-15.5 [facility] Comment on above: Order Comment: Speci men Type: BLOOD SPECIMENOrdering Facility: [facility] Address: [address] [place] [address] Performed By: #### 5 7021-8 ####[facility] LABCLIA [id number] [facility] [address] [place] Immature granulocytes (Bld) [#/Vol] 10*3/uL Normal <0.10 [facility] Comment on above: Order Comment: Speci men Type: BLOOD SPECIMENOrdering Facility: [facility] Address: [address] [place] [address] Performed By: #### 5 7021-8 ####[facility] LABCLIA [id number] [place] [address] [place] Immature granulocytes/100 WBC (Bld) 0.3 % Normal [facility] Comment on above: Order Comment: Speci men Type: BLOOD SPECIMENOrdering Facility: [facility] Address: [address] [place] [address] Performed By: #### 5 7021-8 ####[facility] LABCLIA [id number] [place] [address] [place] Lymphocytes (Bld) [#/Vol] 2.32 10*3/uL Normal 1.00-4.00 [facility] Comment on above: Order Comment: Speci men Type: BLOOD SPECIMENOrdering Facility: [facility] Address: [address] [place] [address] Performed By: #### 5 7021-8 ####[facility] LABCLIA [id number] [facility] [place] [address] [place] Lymphocytes/100 WBC (Bld) 29.8 % Normal [facility] Comment on above: Order Comment: Speci men Type: BLOOD SPECIMENOrdering Facility: [facility] Address: [address] [place] [address] Performed By: #### 5 7021-8 ####[facility] [id number] [place] [address] [place] MCH (RBC) [Entitic mass] 29.1 pg Normal 26.0-34.0 [facility] Comment on above: Order Comment: Speci men Type: BLOOD SPECIMENOrdering Facility: [facility] Address: [address] [place] [address] Performed By: #### 5 7021-8 ####[facility] [id number] [place] [address] [place] MCHC (RBC) [Mass/Vol] 32.6 g/dL Normal 30.5-36.0 [facility] Comment on above: Order Comment: Speci men Type: BLOOD SPECIMENOrdering Facility: [facility] Address: [address] [place] [address] Performed By: #### 5 7021-8 ####[facility] [id number] [place] [address] [place] MCV (RBC) [Entitic vol] 89.2 fL Normal 80.0-100.0 C [facility] Comment on above: Order Comment: Speci men Type: BLOOD SPECIMENOrdering Facility: [facility] Address: [address] [place] [address] Performed By: #### 5 7021-8 ####[facility] [id number] [place] [address] [place] Monocytes (Bld) [#/Vol] 0.42 10*3/uL Normal <0.87 [facility] Comment on above: Order Comment: Speci men Type: BLOOD SPECIMENOrdering Facility: [facility] Address: [address] [place] [address] Performed By: #### 5 7021-8 ####[facility] [id number] [place] [id number] [place] Monocytes/100 WBC (Bld) 5.4 % Normal [facility] Comment on above: Order Comment: Speci men Type: BLOOD SPECIMENOrdering Facility: [facility] Address: [address] [place] [address] Performed By: #### 5 7021-8 ####[facility] LABCLIA [id number] [place] [address] [place] Neutrophils (Bld) [#/Vol] 4.75 10*3/uL Normal 1.45-7.50 [facility] Comment on above: Order Comment: Speci men Type: BLOOD SPECIMENOrdering Facility: [facility] Address: [address] [place] [address] Performed By: #### 5 7021-8 ####[facility] LABCLIA [id number] [place] [address] [place] Neutrophils/100 WBC (Bld) 60.9 % Normal [facility] Comment on above: Order Comment: Speci men Type: BLOOD SPECIMENOrdering Facility: [facility] Address: [address] [place] [address] Performed By: #### 5 7021-8 ####[facility] LABCLIA [id number] [place] [address] [place] Nucleated RBC (Bld) [#/Vol] 10*3/uL Normal <0.01 [facility] Comment on above: Order Comment: Speci men Type: BLOOD SPECIMENOrdering Facility: [facility] Address: [address] [place] [address] Performed By: #### 5 7021-8 ####[facility] LABCL[facility] [id number] [place] [address] [place] Nucleated RBC/100 WBC (Bld) [Ratio] 0.0 /100 WBC Normal [facility] Comment on above: Order Comment: Speci men Type: BLOOD SPECIMENOrdering Facility: [facility] Address: [address] [place] [address] Performed By: #### 5 7021-8 ####[facility] LABCL[facility] [id number] [place] [id number] [place] Platelet mean volume (Bld) [Entitic vol] 11.1 fL Normal 9.0-12.7 [facility] Comment on above: Order Comment: Speci men Type: BLOOD SPECIMENOrdering Facility: [facility] Address: [address] [place] [address] Performed By: #### 5 7021-8 ####[facility] LABCL[facility] [id number] [place] [address] [place] Platelets (Bld) [#/Vol] 341 10*3/uL Normal 150-400 [facility] Comment on above: Order Comment: Speci men Type: BLOOD SPECIMENOrdering Facility: [facility] Address: [address] [place] [address] Performed By: #### 5 7021-8 ####[facility] LABCLIA [id number] [place] [address] [place] RBC (Bld) [#/Vol] 4.81 10*6/uL Normal 3.90-5.[address] [facility] Comment on above: Order Comment: Speci men Type: BLOOD SPECIMENOrdering Facility: [facility] Address: [address] [place] [address] Performed By: #### 5 7021-8 ####[facility] LABCL[facility] [id number] [address] [address] [place] WBC (Bld) [#/Vol] 7.79 10*3/uL Normal 3.70-11.[address] [facility] Comment on above: Order Comment: Speci men Type: BLOOD SPECIMENOrdering Facility: [facility] Address: [address] [place] [address] Performed By: #### 5 7021-8 ####[facility] LABCLIA [id number] [address] [place] [address] [place] Comprehensive metabolic 2000 panelon 12-28-2024 Albumin [Mass/Vol] 4.3 g/dL Normal 3.9-4.9 [facility] Comment on above: Order Comment: Speci men Type: BLOOD SPECIMENOrdering Facility: [facility] Address: [address] [place] [address] Performed By: #### 3 016-3, , ####[facility] LABCL[facility] [id number] [address] [place] [address] [place] ALP [Catalytic activity/Vol] 108 U/L Normal 34-123 [facility] Comment on above: Order Comment: Speci men Type: BLOOD SPECIMENOrdering Facility: [facility] Address: [address] [place] [address] Performed By: #### 3 016-3, , ####[facility] [id number] [address] [address] [place] ALT [Catalytic activity/Vol] 13 U/L Normal 7-38 [facility] Comment on above: Order Comment: Speci men Type: BLOOD SPECIMENOrdering Facility: [facility] Address: [address] [place] [address] Performed By: #### 3 016-3, , ####[facility]CL[facility] [id number] [address] [place] [address] [place] Anion gap [Moles/Vol] 11 mmol/L Normal 8-15 [facility] Comment on above: Order Comment: Speci men Type: BLOOD SPECIMENOrdering Facility: [facility] Address: [address] [place] [address] Performed By: #### 3 016-3, , ####[facility] LABCL[facility] [id number] [place] [address] [place] AST [Catalytic activity/Vol] 13 U/L Normal 13-35 [facility] Comment on above: Order Comment: Speci men Type: BLOOD SPECIMENOrdering Facility: [facility] Address: [address] [place] [address] Performed By: #### 3 016-3, , ####[facility] LABCL[facility] [id number] [place] [address] [place] Bilirubin [Mass/Vol] 0.3 mg/dL Normal 0.2-1.3 [facility] Comment on above: Order Comment: Speci men Type: BLOOD SPECIMENOrdering Facility: [facility] Address: [address] [place] [address] Performed By: #### 3 016-3, , ####[facility] LABCL[facility] [id number] [place] [address] [place] Calcium [Mass/Vol] 9.7 mg/dL Normal 8.5-10.2 [facility] Comment on above: Order Comment: Speci men Type: BLOOD SPECIMENOrdering Facility: [facility] Address: [address] [place] [address] Performed By: #### 3 016-3, , ####[facility] LABCL[facility] [id number] [place] [address] [place] Chloride [Moles/Vol] 104 mmol/L Normal 98-107 [facility] Comment on above: Order Comment: Speci men Type: BLOOD SPECIMENOrdering Facility: [facility] Address: [address] [place] [address] Performed By: #### 3 016-3, , ####[facility]CL[facility] [id number] [place] [id number] [place] CO2 [Moles/Vol] 25 mmol/L Normal 22-30 [facility] Comment on above: Order Comment: Speci men Type: BLOOD SPECIMENOrdering Facility: [facility] Address: [address] [place] [address] Performed By: #### 3 016-3, , ####[facility]CL[facility] [id number] [place] [id number] [place] Creatinine [Mass/Vol] 0.70 mg/dL Normal 0.58-0.96 [facility] Comment on above: Order Comment: Speci men Type: BLOOD SPECIMENOrdering Facility: [facility] Address: [address] [place] [address] Performed By: #### 3 016-3, , ####[facility]CL[facility] [id number] [place] [address] [place] Creatinine and Glomerular filtration rate.predicted panel (S/P/Bld) 126 mL/min/1.73m??? Normal >=60 [facility] Comment on above: Order Comment: Speci men Type: BLOOD SPECIMENOrdering Facility: [facility] Address: [address] [place] [address] Result Comment: Lizzy mated Glomerular Filtration Rate (eGFR) is calculated using the 2020 CKD-EPI creatinine equation. This equation utilizes serum creatinine, sex, and age as parameters. The creatinine assay has traceable calibration to isotope dilution-mass spectrometry. Refer to KDIGO guidelines for clinical interpretation. In patients with unstable renal function, e.g. those with acute kidney injury, the eGFR may not accurately reflect actual GFR. Performed By: #### 3 016-3, , ####[facility]CL[facility] [id number] [place] [id number] [place] Glucose [Mass/Vol] 80 mg/dL Normal 74-99 [facility] Comment on above: Order Comment: Speci men Type: BLOOD SPECIMENOrdering Facility: [facility] Address: [address] [place], [place] [id number] Result Comment: The [place] [employer] (ADA) provides guidance for cutoff values for fasting glucose and random glucose. The ADA defines fasting as no caloric intake for at least 8 hours. Fasting plasma glucose results between 100 to 125 mg/dL indicate increased risk for diabetes (prediabetes). Fasting plasma glucose results greater than or equal to 126 mg/dL meet the criteria for diagnosis of diabetes. In the absence of unequivocal hyperglycemia, results should be confirmed by repeat testing. In a patient with classic symptoms of hyperglycemia or hyperglycemic crisis, random plasma glucose results greater than or equal to 200 mg/dL meet the criteria for diagnosis of diabetes. Reference: Standards of Medical Care in Diabetes 2016, [place] [employer]. Diabetes Care. 2016.39(Suppl 1). Performed By: #### 3 016-3, , ####[facility]CL[facility] [id number] [place] [address] [place] Potassium [Moles/Vol] 3.9 mmol/L Normal 3.7-5.1 [facility] Comment on above: Order Comment: Speci men Type: BLOOD SPECIMENOrdering Facility: [facility] Address: [address] [place], [place] [address] Performed By: #### 3 016-3, , ####[facility] [id number] [place] [address] [place] Protein [Mass/Vol] 7.5 g/dL Normal 6.3-8.0 [facility] Comment on above: Order Comment: Speci men Type: BLOOD SPECIMENOrdering Facility: [facility] Address: [address] [place] [id number] Performed By: #### 3 016-3, , ####[facility]CL[facility] [id number] [place] [id number] [place] Sodium [Moles/Vol] 140 mmol/L Normal 136-144 [facility] Comment on above: Order Comment: Speci men Type: BLOOD SPECIMENOrdering Facility: [facility] Address: [address] [place] [address] Performed By: #### 3 016-3, , ####[facility] [id number] [place] [id number] [place] Urea nitrogen [Mass/Vol] 14 mg/dL Normal 7-21 [facility] Comment on above: Order Comment: Speci men Type: BLOOD SPECIMENOrdering Facility: [facility] Address: [address] [place] [address] Performed By: #### 3 016-3, 30921-2, 12392-2 ####[facility] [id number] [place] [id number] [place] Magnesium SerPl-mCncon 12-28 Magnesium [Mass/Vol] 2.1 mg/dL Normal 1.7-2.3 [facility] Comment on above: Order Comment: Speci men Type: BLOOD SPECIMENOrdering Facility: [facility] Address: [address] [place] [address] Performed By: #### 3 016-3, , ####[facility] [id number] [place] [address] [place] TSH SerPl-aCncon 12-28-2024 TSH Qn 1.190 m[IU]/L Normal 0.270-4.200 [facility] Comment on above: Order Comment: Speci men Type: BLOOD SPECIMENOrdering Facility: [facility] Address: [address] [place] [address] Result Comment: If t he patient is , TSH reference range varies by gestational period: First Trimester (weeks 9-12): 0.180-2.990 mIU/L Second Trimester: 0.110-3.980 mIU/L Third Trimester: 0.480-4.710 mIU/L Khoa Hernandez et al. A Practical Approach for the Verifications and Determination of Site- and Trimester-Specific Reference Intervals for Thyroid Function tests in . Thyroid, 2019:29:3:412-420. Macario E, et al. 2017 Guidelines of the [place] Thy[employer] for the Diagnosis and Management of Thyroid Disease during and the . Thyroid, 2017:27:3:315-389. Performed By: #### 3 016-3, 72005-9, 25913-7 ####[facility] LABCL[facility] [id number] [address] OF [facility] CNOVon 12-27-2024 CNOV Office Visit (FAMPWS ) MANDO BRINKCIDaija Nuñez ([id number]) 1 F Date Time Provider Department 12/27/24 12:20 PM [facility] During your visit today, we recorded the following information about you: Pulse Blood pressure Weight Height 80/minute 104/84 78 kg 1.647 m Isasc Fernández MD 12/27/2024 1:15 PM Signed Chief Complaint Patient presents with: Migraine Tachycardia Recording using HALFPOPS software for draft documentation of the visit was discussed with the patient/authorized billing customer service representative; all questions welcomed and answered. Patient/authorized billing customer service representative agreed to proceed HPI Shawanda Brink is a 19 year old female who presents here today for Above Complaints. Migraines: - Chronic migraines worsening in frequency and severity. - Currently experiencing migraines 5 days per week. - Previously seen on 11/30 for migraines occurring 8-10 days per month since August, lasting 3-5 days each. - Associated symptoms: dizziness, nausea, feeling not herself. - Visual auras: flashing lights, underwater vision, loss of peripheral vision lasting a few minutes. - Sharp pain behind the eyes, initially on the right side, now also on the left side. - Prescribed Imitrex for acute attacks; reports it helps with headaches but causes jaw pain and nausea. - Attempted to identify triggers; noted stress at work as a potential trigger but also experiences migraines randomly. - OB suggested hormonal panel due to , but no labs ordered by their office. Tachycardia: - Episodes of tachycardia and lightheadedness since . - Heart rate recorded at 140 bpm while standing in the shower. - Episodes occur every other day, with heart rates between 120-140 bpm. - Symptoms include feeling like the wind's knocked out of me and difficulty breathing. - No recent episodes of syncope; one episode in 2023 required hospitalization. - Denies recent nausea, emesis, or diarrhea. - Resting heart rate usually in the 60s. - Monitoring heart rate with Apple Watch and pulse oximeter. - Denies current ; last period not yet resumed due to . - History of gestational diabetes. - Previous evaluation by [facility] in September or October 2022; no echo performed, only noted low potassium levels. Past medical history, appointments, medications, allergies reviewed. Previous Medical History PAST MEDICAL HISTORY Diagnosis Date Acne vulgaris 08/18/2015 Anxiety Bipolar 2 disorder (HCC) Cough variant asthma (HCC) 09/27/2016 Depression Migraines PMH - PAST MEDICAL HISTORY OF vascular rose left ankle Previous Surgical History PAST SURGICAL HISTORY Procedure Laterality Date NONE Family History FAMILY HISTORY Problem Relation Age of Onset Ange Disease Mother other (pulmnary embolism) Father other (mass on liver) Father other (depression and anxiety) Maternal Grandmother Cervical Cancer Maternal Grandmother other ([place]) Maternal Grandfather 49 other (depression and anxiety) Paternal Grandmother Bipolar disorder Paternal Grandmother Anxiety disorder Paternal Grandfather Cancer Other PATERNAL AND MATERNAL SIDES Diabetes Other PATERNAL AND MATERNAL SIDES other (CLOTTING DISORDER) Other PATERNAL SIDE - FACTOR 5 DISORDER Paternal great aunt Patient Allergies ALLERGIES Allergen Reactions Celexa [Citalopram] Other: See Comments Tunnel vision Lexapro [Escitalopr* Rash Current Medications Current Outpatient Medications on File Prior to Visit Medication Sig SUMAtriptan (IMITREX) 50 mg tablet Take 1 tablet by mouth as needed for migraine headache (see administration instructions). May repeat dose after 2 hours if needed. Maximum daily dose is 200 mg per day. FLUoxetine (PROZAC) 20 mg capsule Take 1 capsule by mouth once daily. No current facility-administered medications on file prior to visit. Social History Social History Tobacco Use Smoking status: Never Smokeless tobacco: Never Vaping Use Vaping status: Never Used Substance Use Topics Alcohol use: Never Drug use: Never Review of Symptoms REVIEW OF SYSTEMS See HPI EXAM: BP 104/84 Pulse 80 Ht 164.7 cm (5' 4.84) Wt 78 kg (171 lb 15.3 oz) LMP 11/04/2021 SpO2 98% BMI 28.76 kg/m? BP w/Orthostatic Vitals Date and Time Orthostatic BP Orthostatic Pulse BP Pulse BP Position BP Site BP Cuff Size 12/27/24 1251 125/91 92 -- -- Standing -- -- 12/27/24 1250 117/77 67 -- -- Supine -- -- 12/27/24 1200 -- -- 104/84 80 -- -- -- General Appearance: Well appearing, alert, in no acute distress, well-hydrated, well nourished.. Skin: Skin color, texture, turgor normal, no suspicious rashes or lesions. Lungs: Lungs clear to auscultation. No wheezing, rhonchi, rales.. Heart: RRR without murmur, gallop, or rubs. No ectopy. Abdomen: Normal (more content not included)... Normal [facility] ECG COMPLETEon 12-27-2024 ECG COMPLETE Ventricular Rate : 7 3 BPM Atrial Rate : 73 BPM P-R Interval : 136 ms QRS Duration : 82 ms Q-T Interval : 394 ms QTC Calculation(Bazett) : 434 ms Calculated P Scuddy : 41 degrees Calculated R Scuddy : 7 degrees Calculated T Scuddy : 34 degrees NORMAL SINUS RHYTHM WITH SINUS ARRHYTHMIA NORMAL ECG Confirmed by MD MCCALL QARAB ([id number]) on 12/31/2024 11:01:42 AM NAME : SHAWANDA BRINK PID : [id number] : 2005 Gender : Female Race : ORD : [id number] Procedure Date : Dec 27 2024 12:37:06 Edit Date : Dec 31 2024 11:01:47 Diagnosis: NORMAL SINUS RHYTHM WITH SINUS ARRHYTHMIA NORMAL ECG Confirmed by MD MCCALL QARAB ([id number]) on 12/31/2024 11:01:42 AM Test Reason : R00.2 Palpitations Location : 136 : [place] Overread By : MD MCCALL QARAB Edited By : MD MCCALL QARAB Referred By : , Acquired by : Geovanna CHRISTIANSON [facility] UA DIP,URINE HCG (POC)on Beta HCG ( test) Ql (U) Negative Negative [facility] Comment on above: Location:[facility], [address], [place], [address] Combination Operator (POCT) Internal QC [place] [facility] Location:[facility], [address], [place], [address] [facility] POINT OF CARE [facility] CNOVon 11-30-2024 CNOV Office Visit (FAMPWS ) SHAWANDA BRINK ([id number]) 1 F Date Time Provider Department 11/30/24 10:20 AM VERONICA MUSE During your visit today, we recorded the following information about you: Pulse Respiration Blood pressure Weight 66/minute 16/minute 108/86 78.2 kg Veronica Muse APRN.CNP 11/30/2024 10:59 AM Signed 11/30/2024 Patient presents with: Headache: Another that started this AM. Has been having one x8 days Recording using HALFPOPS software for draft documentation of the visit was discussed with the patient/authorized billing customer service representative; all questions welcomed and answered. Patient/authorized billing customer service representative agreed to proceed SUBJECTIVE: This is a 19 year old that is here today for Above Complaints.. Migraines: - Initial onset during teenage years; increased frequency during with daughter 2-3 years ago. - Significant worsening after the of her son, who is currently 10 months old. - Currently experiencing migraines 8-10 days per month since August. - Migraines typically last 3-5 days, with associated dizziness, nausea, and feeling not like myself. - Current episode began on and is ongoing. - Migraines often preceded by visual aura, including flashing lights, underwater vision, and loss of peripheral vision lasting 15-20 minutes. - Pain is usually sharp, progressing to aching, predominantly on the right side behind the eyes, occasionally on the left. - Associated photophobia, phonophobia, and nausea; denies emesis. - Pain described as severe, affecting speech. - Current treatment includes Tylenol, ibuprofen, and essential oils with minimal relief. - No previous prescription medication for migraines. - Currently ; plans to continue for 2 more months. PAST MEDICAL HISTORY Diagnosis Date Acne vulgaris 08/18/2015 Anxiety Bipolar 2 disorder ([facility]) Cough variant asthma ([facility]) 09/27/2016 Depression Migraines PMH - PAST MEDICAL HISTORY OF vascular rose left ankle ALLERGIES Celexa [Citalopram] and Lexapro [Escitalopram] MEDICATIONS Current Outpatient Medications Medication Sig SUMAtriptan (IMITREX) 50 mg tablet Take 1 tablet by mouth as needed for migraine headache (see administration instructions). May repeat dose after 2 hours if needed. Maximum daily dose is 200 mg per day. FLUoxetine (PROZAC) 20 mg capsule Take 1 capsule by mouth once daily. No current facility-administered medications for this visit. Medications and allergies reviewed by this provider. SOCIAL HISTORY Social History Tobacco Use Smoking status: Never Smokeless tobacco: Never Vaping Use Vaping status: Never Used Substance Use Topics Alcohol use: Never Drug use: Never REVIEW OF SYSTEMS All other reviewed and negative other than HPI. OBJECTIVE: BP 108/86 Pulse 66 Resp 16 Wt 78.2 kg (172 lb 6.4 oz) LMP 11/04/2021 SpO2 98% BMI 28.83 kg/m? . Vital signs reviewed by this provider. GENERAL: NAD, alert and oriented SKIN: unremarkable, no rash or skin lesions to exposed skin HEAD: normocephalic EYES: PERRLA, EOMI, conjunctiva clear EARS: external ears normal, canals clear, TM's normal. NOSE/SINUSES: Nares normal. Septum midline. OROPHARYNX: lips, mucosa, and tongue normal, good dentition. No oral lesions noted. NECK: Supple, no lymphadenopathy, normal thyroid, no carotid bruits. LUNGS: Clear to auscultation bilaterally, no wheezes/rhonchi/rales. HEART: Regular rate and rhythm, no murmurs. No ectopy. EXTREMITIES: Normal, No deformities, No skin discoloration, No edema. Neuro: Awake, alert and oriented x 3, Cranial nerves II-XII grossly intact, Reflexes symmetrical, Normal gait, No involuntary motions., and negative findings: speech normal, mental status intact, cranial nerves 2-12 intact, gait, including heel, toe, and tandem walking normal, Romberg negative, muscle tone normal, muscle strength normal, rapid alternating movements normal, finger to nose normal, reflexes normal and symmetric, plantar response downgoing bilaterally Meningococcal B Vaccine(1 of 2 - Standard) Never done Hepatitis C Screening Never done HIV Screening Never done Asthma Control Test due on 08/27/2022 GC (Gonorrhea) Screening (18-24) due on 11/16/2022 Chlamydia Screening (18-24) due on 11/16/2022 Asthma Action Plan due on 08/27/2023 Covid-19 Vaccine( season) Never done Cervical Cancer Screening Never done Influenza Vaccine(Season Ended) due on 03/18/2025 Annual PCP Team Chronic Disease Visit due on 11/30/2025 DTaP,Tdap,Td Vaccine(8 - Td or Tdap) due on 11/03/2032 Hepatitis B Vaccine Completed HPV Vaccine Completed ASSESSMENT/PLAN: 1. Migraine with aura, intractable, without status migrainosus - ICD9: 346.01, ICD10: G43.119 - no red flag symptoms or exam findings - red flag symptoms discussed, verbalizes un (more content not included)... Normal [facility] Gram Stainon 11-09-2024 Reason for Exam: Pel chandrika pain Gram Stain 4+ Gram positive rods No Gram negative diplococci Score = 0 Interpretation: 0-3 Normal, 4-6 Intermediate, 7-10 Positive BV Normal [facility] Comment on above: Performed By: #### M 100.1999 #### [facility] [address] [place], [address] Order Checker Office Visit Reporton 11-09-2024 Order Checker Office Visit Report [facility] [address], [address] [place] [address] OFFICE VISIT Date of Service: 11/09/24 MR#: [id number] Acct: [id number] Name: SHAWANDA BRINK Rep #: [id number] : 2005 Provider: TIFFANIE Topete ams Age/Sex: 19/F [place] [facility] [place] Status: Signed Intake Vital Signs 05/04/24 06:42 11/09/24 11:43 Height 5 ft 4.17 in 5 ft 4.17 in Weight: 174 lb 8 oz BMI 29.7 BP 128/86 H Intake Visit Reasons: Pelvic lower back pain (9mo pp) Chief Complaint: Pelvic and Lower back pain Color Blender Required: No Is patient in pain?: Yes (Pelvic and low back) Pain scale (1-10): 3 Allergies No Known Allergies Allergy (Verified 11/09/24 11:49) Medications ???Medication ???Instructions ???Recorded ???Confirmed ???Type NK 11/09/24 11/09/24 History Is last menstrual period known: No Post menopausal: No : Yes PFSH Medical History Former smoker Hx of gestational diabetes in prior , currently Vaginal delivery hemorrhage depression Gestational diabetes Panic disorder Generalized anxiety disorder Bipolar 2 disorder Seasonal allergies Contraception management Anemia due to blood loss, acute hemorrhage macrosomia GBS (group B Streptococcus carrier), +RV culture, currently Gestational diabetes Anxiety Palpitations Supervision of high risk , antepartum Asthma Depression Family History Grandmother Cervical cancer, Onset Age: 40 maternal Family history of recurrent miscarriage maternal- 2 miscarriages Grandfather Myocardial infarction Father Heart disease Mother Family history of recurrent miscarriage 2 miscarriages Aunt Family history of recurrent miscarriage Maternal- 2 miscarriages Social History adopted: No household members: significant other and children housing: house number of children: 1 current occupational status: employed current occupation: Will be starting at [employer] current occupational exposures/hazards: No pets and animals: No (not managing litterbox while ) history of recent travel: No ([place]) sexually active: Yes Smoking Status: Former smoker how long ago did patient quit smoking: Quit 04/08 alcohol intake: never substance use type: does not use well-balanced diet: daily or most days caffeine: No (ocassional) eating out: 1-3 times/week during the past year weight has: increased > 10 lbs what type of physical activity do you participate in: none jenni/rastafari: Episcopalian seatbelt use: always do you feel safe at home: Yes additional social history: Aura Valderr[employer] HPI Pelvic lower back pain (9mo pp) Details: SHAWANDA BRINK is a 19 year old who presents for pelvic pain. onset x 2 weeks ago that comes and goes. was seen in urgent care and test and urine dip negative. no menses yet because she is still . History 2 Elective abortions Hx Para 1 Spontaneous abortions Hx # Term Pregnancies 2 Ectopic pregnancies Hx # Pregnancies Multiple births # of living children 2 Past Pregnancies Del. Date Name GA/Weeks Outcome Route Bth Weight Infant Gen Labor Lgth Anesthesia Del Locatn Provider FOB 12/15/22 Lakelyn 39 live - full term vacuum 8lbs 8oz Female [facility] Dr Quynh Marie 01/30/24 Charlie 40 live - full term Male [facility] KW Delivery Date: 12/15/22 Last Updated by: Jany Calderon Gestational diabetes Delivery Date: 01/30/24 Last Updated by: Yohana Su IOL ROS Const Constitutional: Reports system reviewed and no additional complaints, except as documented Cardio Card: Reports system reviewed and no additional complaints, except as documented Resp Resp: Reports system reviewed and no additional complaints, except as documented GI GI: Reports system reviewed and no additional complaints, except as documented : Reports system reviewed and no additional complaints, except as documented; Denies difficulty voiding, dysuria or urinary frequency Skin Skin/Breast: Reports system reviewed and no additional complaints, except as documented Neuro Neuro: Reports system reviewed and no additional complaints, except as documented Psych Psych: Reports system reviewed and no additional complaints, except as documented; Denies anhedonia, anxiety or depression Exam Const General: cooperative, healthy appearing, comfortable and no acute distress Orientation: alert, awake and oriented x3 Resp Effort Inspection: normal respiratory effort, able to speak in complete senten (more content not included)... Normal [facility] BACTERIAL CULTURE, URINEOrde red By: Marie Becerra on 11-07-2024 Bacteria identified Cx Nom (U) 10,000 -<50,000 CFU/ml Normal urogenital johnathan [facility] Bacteria identified Cx Nom ( U)Ordered By: Marie Becerra on 11-07-2024 [facility] BACTERIAL VAGINOSIS NAATon 0 4-22-2025 Interpretation and review of laboratory results Normal [facility] Lactobacillus crispatus+gasseri+jense ed + Gardnerella vaginalis + Atopobium vaginae rRNA REYNALDO+probe Ql (Vag fld) Not detected Not detected [facility] Lactobacillus crispatus+gasseri+jense ed + Gardnerella vaginalis + Atopobium vaginae rRNA REYNALDO+probe Ql (Vag fld) Not detected Normal Not detected [facility] Comment on above: Order Comment: Speci men Type: SWABOrdering Facility: [facility] Address: [address] [place] [address] Performed By: #### B VAMP CVTV ####[facility] [id number] [place] [address] [place] Bacteria Ur Culton Bacteria identified Cx Nom (U) ORGANISM ID: 1 10,000 -<50,000 CFU/ml Normal urogenital johnathan Normal [facility] Comment on above: Performed By: #### 6 30-4 ####[facility] [id number] [place] [address] [place] CRISTEL/TRICHOMONAS NAATon 0 11-06-2024 C. glabrata RNA REYNALDO+probe Ql (Vag fld) Not detected Not detected [facility] Cristel sp DNA REYNALDO+probe Ql (Vag fld) Not detected Not detected [facility] Comment on above: The Cristel species group target includes C. albicans, C. tropicalis, C. parapsilosis, and C. dubliniensis. Interpretation and review of laboratory results Normal [facility] T. vaginalis DNA REYNALDO+probe Ql (Unsp spec) Not detected Not detected [facility] C. glabrata RNA REYNALDO+probe Ql (Vag fld) Not detected Normal Not detected [facility] Comment on above: Order Comment: Speci men Type: SWABOrdering Facility: [facility] Address: [address] [place] [address] Performed By: #### B VAMP, CVTV ####[facility] [id number] [place] [address] [place] Cristel sp DNA REYNALDO+probe Ql (Vag fld) Not detected Normal Not detected [facility] Comment on above: Order Comment: Speci men Type: SWABOrdering Facility: [facility] Address: [address] [place] [address] Result Comment: The Crsitel species group target includes C. albicans, C. tropicalis, C. parapsilosis, and C. dubliniensis. Performed By: #### B VAMP, CVTV ####[facility] [id number] [address] OF [place] T. vaginalis DNA REYNALDO+probe Ql (Unsp spec) Not detected Normal Not detected [facility] Comment on above: Order Comment: Speci men Type: SWABOrdering Facility: [facility] Address: [address] [place] [address] Performed By: #### B VAMP, CVTV ####[facility] [id number] [address] [place] CNOVon 11-06-2024 CNOV Office Visit (UCWSTR ) SHAWANDA BRINK ([id number]) 1 F Date Time Provider Department 11/06/24 8:45 AM JAMAL CORTEZ [facility] During your visit today, we recorded the following information about you: Temperature Pulse Respiration Blood pressure 98.1 degrees 72/minute 16/minute 120/76 Weight 79.2 kg Jamal Cortez APRN.MILL RECORDER 11/06/2024 9:31 AM Signed Subjective HPI Nontoxic-appearing 19-year-old female presents urgent care chief complaint of urinary frequency back pain dyspareunia. Duration of symptoms 1 week. Associated symptoms listed above. States has right sided flank pain that radiates down the back of her leg. Describes it as sharp. No relieving or exacerbating factors. OTC medications none. Denies any fever body aches chills nausea vomiting. No vaginal discharge itching. No concerns for STDs. Currently breast-feeding. .Patient presents with: Urinary Frequency: urgency and low back pain, requesting hcg- PAST MEDICAL HISTORY Diagnosis Date Acne vulgaris 08/18/2015 Anxiety Bipolar 2 disorder (HCC) Cough variant asthma (HCC) 09/27/2016 Depression PMH - PAST MEDICAL HISTORY OF vascular rose left ankle PAST SURGICAL HISTORY Procedure Laterality Date NONE ALLERGIES Celexa [Citalopram] and Lexapro [Escitalopram] MEDICATIONS FLUoxetine (PROZAC) 20 mg capsule Take 1 capsule by mouth once daily. FAMILY HISTORY Problem Relation Age of Onset Ange Disease Mother other (pulmnary embolism) Father other (mass on liver) Father other (depression and anxiety) Maternal Grandmother Cervical Cancer Maternal Grandmother other ([place]) Maternal Grandfather 49 other (depression and anxiety) Paternal Grandmother Bipolar disorder Paternal Grandmother Anxiety disorder Paternal Grandfather Cancer Other PATERNAL AND MATERNAL SIDES Diabetes Other PATERNAL AND MATERNAL SIDES other (CLOTTING DISORDER) Other PATERNAL SIDE - FACTOR 5 DISORDER Paternal great aunt Social History Tobacco Use Smoking status: Never Smokeless tobacco: Never Vaping Use Vaping status: Never Used Substance Use Topics Alcohol use: Never Drug use: Never BP 120/76 Pulse 72 Temp 36.7 ?C (98.1 ?F) Resp 16 Wt 79.2 kg (174 lb 9.7 oz) LMP 11/04/2021 SpO2 97% BMI 29.20 kg/m? Review of Systems Constitutional: Negative for chills, fever and malaise/fatigue. Cardiovascular: Negative for chest pain. Gastrointestinal: Negative for abdominal pain, constipation, diarrhea, nausea and vomiting. Genitourinary: Positive for flank pain and frequency. Negative for dysuria, hematuria and urgency. Musculoskeletal: Positive for back pain. Negative for myalgias. Objective Physical Exam Vitals and nursing note reviewed. Constitutional: General: She is not in acute distress. Appearance: She is not diaphoretic. HENT: Head: Jaw: No trismus. Right Ear: Hearing normal. No decreased hearing noted. No drainage, swelling or tenderness. Tympanic membrane is not perforated, erythematous or bulging. Left Ear: Hearing normal. No decreased hearing noted. No drainage, swelling or tenderness. Tympanic membrane is not perforated, erythematous or bulging. Mouth/Throat: Pharynx: Uvula midline. No uvula swelling. Tonsils: No tonsillar abscesses. Cardiovascular: Rate and Rhythm: Normal rate and regular rhythm. Pulses: Normal pulses. Pulmonary: Effort: Pulmonary effort is normal. No respiratory distress. Breath sounds: Normal breath sounds. Chest: Chest wall: No tenderness. Abdominal: General: Bowel sounds are normal. There is no distension. Palpations: Abdomen is soft. Abdomen is not rigid. Tenderness: There is abdominal tenderness in the suprapubic area. There is no right CVA tenderness, left CVA tenderness, guarding or rebound. Negative signs include Lopez's sign and McBurney's sign. Comments: mild Musculoskeletal: General: No tenderness. Back: Comments: Tenderness to palpation highlighted area. No spinal tenderness. Lymphadenopathy: Head: Right side of head: No submental, submandibular, tonsillar, preauricular, posterior auricular or occipital adenopathy. Left side of head: No submental, submandibular, tonsillar, preauricular, posterior auricular or occipital adenopathy. Cervical: Right cervical: No superficial or posterior cervical adenopathy. Left cervical: No superficial or posterior cervical adenopathy. Skin: General: Skin is warm and dry. Findings: No rash. Neurological: Mental Status: She is alert and oriented to person, place, and time. ASSESSMENT/PLAN: 1. Urinary frequency - ICD9: 788.41, ICD10: R35.0 (primary diagnosis) - UA DIP, URINE (POC) - HCG QUAL UR B/O - BACTERIAL CULTURE, URINE 2. Low back pain with sciatica, sciatica laterality unspecified, unspecified back pain laterality, unspecified chronicity - ICD9: 724.3, I (more content not included)... Normal [facility] UA DIP, URINE (POC)on 2024 BILIRUBIN UA (POCT) Negative Negative [facility] CLARITY UA (POCT) Clear [facility] COLOR UA (POCT) Yellow [facility] GLUCOSE UA (POCT) Negative Negative mg/dL [facility] Hemoglobin Ql (U) Negative Negative [facility] KETONE UA (POCT) Negative Negative mg/dL [facility] LEUKOCYTES UA (POCT) Negative [facility] NITRITE UA (POCT) Negative Negative [facility] PH UA (POCT) 6 4.5 - 8.0 [facility] Protein Ql (U) Negative Negative mg/dL [facility] SPECIFIC GRAVITY UA (POCT) 1.025 1.005 - 1.030 [facility] UROBILINOGEN UA (POCT) 0.2 Karin l E.U./dL [facility] Location:[address], [place], [place], [id number] [place] [address] POINT OF CARE [facility] UA DIP,URINE HCG (POC)on Beta HCG ( test) Ql (U) Negative Negative [facility] Comment on above: Location:[address], [place], [address] Combination Operator (POCT) Internal QC OK [facility] Location:[address] POINT OF CARE [facility] CNNURSEon 11-01-2024 [facility] Nurse Visit (FAMPWS) SHAWANDA BRINK ([id number]) 1 F Date Time Provider Department 11/01/24 8:45 AM [place] NURSE FAMPWS During your visit today, we recorded the following information about you: MEENAKSHI SPANGLER 11/01/2024 9:05 AM Signed Patient presents for Hepatitis B vaccine. Denies any problems at this time. Tolerated injection well. Meenakshi Spangler LPN Allergies As of Date: 11/01/2024 Noted Allergy Reaction CELEXA (CITALOPRAM) 03/21/2024 14 - Other: See Comments Comments: Tunnel vision LEXAPRO (ESCITALOPRAM) 03/21/2024 2 - Rash Date Reviewed: 09/12/2024 Reviewed by: Allyson Peters MA - Fully Assessed Reason for Visit: Imm/Inj [58] Primary Visit Diagnosis:Encounter for immunization [Z23] Prescriptions as of 11/01/2024 - FLUoxetine (PROZAC) 20 mg capsule Take 1 capsule by mouth once daily. Problem List As Of Date 11/01/2024 Noted Resolved Acne vulgaris [L70.0] 08/18/2015 Mild persistent asthma without complication [J4*09/27/2016 Flat foot [M21.40] 07/20/2017 Influenza vaccine refused [Z28.21] 07/20/2017 Depression [F32.A] 08/04/2021 Generalized anxiety disorder [F41.1] 08/04/2021 Encounter Status:Closed by MEENAKSHI SPANGLER on 11/01/24 [facility] 10-29-2024 [facility] Telephone (PSWSTR) SHAWANDA BRINK ([id number]) 1 F Date Time Provider Department 10/29/24 MAXINE ELLIS PSWSTR During your visit today, we recorded the following information about you: Queta Mccarty LPN 10/29/2024 2:19 PM Signed Labs scanned to chart for you to review. SHIRA Diaz Nishi J, CERTIFIED DIETARY MANAGER.[facility] 10/29/2024 4:07 PM Signed Reviewed lab results. No concerns noted at this time. Allergies As of Date: 10/29/2024 Noted Allergy Reaction CELEXA (CITALOPRAM) 03/21/2024 14 - Other: See Comments Comments: Tunnel vision LEXAPRO (ESCITALOPRAM) 03/21/2024 2 - Rash Date Reviewed: 09/12/2024 Reviewed by: Allyson Peters MA - Fully Assessed Prescriptions as of 10/30/2024 - FLUoxetine (PROZAC) 20 mg capsule Take 1 capsule by mouth once daily. Problem List As Of Date 10/29/2024 Noted Resolved Acne vulgaris [L70.0] 08/18/2015 Mild persistent asthma without complication [J4*09/27/2016 Flat foot [M21.40] 07/20/2017 Influenza vaccine refused [Z28.21] 07/20/2017 Depression [F32.A] 08/04/2021 Generalized anxiety disorder [F41.1] 08/04/2021 Encounter Status:Closed by QUETA MCCARTY on 10/30/24 [facility] 10[facility]23-20[facility] SHAWANDA BRINK ([id number]) 1 F Date Time Provider Department 10/23/24 [facility] During your visit today, we recorded the following information about you: Antoinette Burgess RN 10/23/2024 12:12 PM Signed Patient calls and states that she had Hepatitis B titers done at [facility]. Patient reports that titers showed that she is not immune to Hepatis B. Patient asking if she needs to come in and get vaccines done? Patient will have lab results faxed to office. Please review and advise, SHERLY Schulte Christopher B, MD 10/23/2024 12:22 PM Signed Can we get records so I can review before placing orders for vaccines? Yohana Bird LPN 10/24/2024 1:11 PM Signed Received. Placed on providers desk for review. SHIRA Garcia Christopher B, MD 10/24/2024 1:30 PM Signed Confirmed labs show no immunity. Orders approved for Hepatitis B series. Please schedule for [place]. MEENAKSHI SPANGLER 10/24/2024 2:32 PM Signed Left message for return call. SHIRA Posadas Beth, LPN 10/24/2024 2:43 PM Signed Patient returned call and went over results, notes from Dr Fernández with understanding. Scheduled nurse visit for Hep B vaccine injection number 1 for 11/01/2024 with Nurse. Allergies As of Date: 10/23/2024 Noted Allergy Reaction CELEXA (CITALOPRAM) 03/21/2024 14 - Other: See Comments Comments: Tunnel vision LEXAPRO (ESCITALOPRAM) 03/21/2024 2 - Rash Date Reviewed: 09/12/2024 Reviewed by: Allyson Peters MA - Fully Assessed Reason for Visit: Patient Question [1477] Primary Visit Diagnosis:Need for vaccination [Z23] Order(s):HEP B VACCINE, 3-DOSE, AGE 20+ YR (ENGERIX-B, RECOMBIVAX HB) [[id number]] Order #: [id number] HEP B VACCINE, 3-DOSE, AGE 20+ YR (ENGERIX-B, RECOMBIVAX HB) [[id number]] Order #: [id number] FUTURE HEP B VACCINE, 3-DOSE, AGE 20+ YR (ENGERIX-B, RECOMBIVAX HB) [[id number]] Order #: [id number] FUTURE Prescriptions as of 10/24/2024 - FLUoxetine (PROZAC) 20 mg capsule Take 1 capsule by mouth once daily. Problem List As Of Date 10/23/2024 Noted Resolved Acne vulgaris [L70.0] 08/18/2015 Mild persistent asthma without complication [J4*09/27/2016 Flat foot [M21.40] 07/20/2017 Influenza vaccine refused [Z28.21] 07/20/2017 Depression [F32.A] 08/04/2021 Generalized anxiety disorder [F41.1] 08/04/2021 Encounter Status:Closed by PAMELA KATZ on 10/24/24 Normal [facility] .Auto Diffon 10-09-2024 Basophil, Absolute 0.1 10 3/mcL Normal 0.0-0.3 [facility] Comment on above: Performed By: #### L IPID, CBC, ANEU, GFR, ADIFF, CMP, HCV1 #### [address] [address] Basophils/100 WBC (Bld) 0.8 % Normal 0.0-2.5 [facility] Comment on above: Performed By: #### L IPID, CBC, ANEU, GFR, ADIFF, CMP, HCV1 #### [address] [address] Eosinophil, Absolute 0.2 10 3/mcL Normal 0.0-0.7 [facility] Comment on above: Performed By: #### L IPID, CBC, ANEU, GFR, ADIFF, CMP, HCV1 #### [address] [address] Eosinophils/100 WBC (Bld) 3.1 % Normal 0.0-6.0 [facility] Comment on above: Performed By: #### L IPID, CBC, ANEU, GFR, ADIFF, CMP, HCV1 #### [address] [address] Lymphocyte, Absolute 1.3 10 3/mcL Normal 0.9-4.3 [facility] Comment on above: Performed By: #### L IPID, CBC, ANEU, GFR, ADIFF, CMP, HCV1 #### [address] [address] Lymphocytes/100 WBC (Bld) 19.9 % Low 20.0-40.0 [facility] Comment on above: Performed By: #### L IPID, CBC, ANEU, GFR, ADIFF, CMP, HCV1 #### [address] [address] Monocyte, Absolute 0.4 10 3/mcL Normal 0.1-1.4 [facility] Comment on above: Performed By: #### L IPID, CBC, ANEU, GFR, ADIFF, CMP, HCV1 #### [address] [address] Monocytes/100 WBC (Bld) 5.8 % Normal 2.0-13.0 [facility] Comment on above: Performed By: #### L IPID, CBC, ANEU, GFR, ADIFF, CMP, HCV1 #### [address] [address] Neutrophils/100 WBC (Bld) 70.4 % Normal 50.0-75.0 [facility] Comment on above: Performed By: #### L IPID, CBC, ANEU, GFR, ADIFF, CMP, HCV1 #### [address] [address] .GFRon 10-09-2024 GFR/1.73 sq M.predicted among non-blacks MDRD (S/P/Bld) [Vol rate/Area] mL/min/{1.73_m2} Normal [facility] Comment on above: Result Comment: Stages of Chronic Kidney Disease (CKD) Stage Description eGFR(ml/min/1.73 sq.m.) CKD 1 Normal kidney function or >=90 normal kindney function with possible kidney damage (ex. Proteinuria) CKD 2 Kidney damage with mild loss 60-89 of kidney function CKD 3a Mild to moderate loss of kidney 45-59 function CKD 3b Moderate to severe loss of 30-44 of kindey function CKD 4 Severe loss of kidney function 15-29 CKD 5 Kidney failure <15 Note: (go live 2024) the eGFR calculation was updated to the 2020 CKD-EPI creatinine equation without a race factor to calculate the eGFR results. Performed By: #### L IPID, CBC, ANEU, GFR, ADIFF, CMP, HCV1 #### [address] [address] .NEUABSon 10-09-2024 Neutrophil, Absolute 4.7 10 3/mcL Normal 2.3-8.1 [facility] Comment on above: Performed By: #### L IPID, CBC, ANEU, GFR, ADIFF, CMP, HCV1 #### [address] [address] CBCon 10-09-2024 Erythrocyte distribution width (RBC) [Ratio] 13.1 % Normal 11.5-15.5 [facility] Comment on above: Performed By: #### L IPID, CBC, ANEU, GFR, ADIFF, CMP, HCV1 #### [place] [address] Hematocrit (Bld) [Volume fraction] 42.3 % Normal 34.0-46.0 [facility] Comment on above: Performed By: #### L IPID, CBC, ANEU, GFR, ADIFF, CMP, HCV1 #### [place] [address] Hgb 14.2 G/dL Normal 12.0-16.0 [facility] Comment on above: Performed By: #### L IPID, CBC, ANEU, GFR, ADIFF, CMP, HCV1 #### [place] [address] MCH (RBC) [Entitic mass] 29.2 pg Normal 27.0-33.0 [facility] Comment on above: Performed By: #### L IPID, CBC, ANEU, GFR, ADIFF, CMP, HCV1 #### [place] [address] MCHC 33.6 G/dL Normal 32.0-36.0 [facility] Comment on above: Performed By: #### L IPID, CBC, ANEU, GFR, ADIFF, CMP, HCV1 #### [place] [address] MCV (RBC) [Entitic vol] 86.9 fL Normal 80.0-99.0 [facility] Comment on above: Performed By: #### L IPID, CBC, ANEU, GFR, ADIFF, CMP, HCV1 #### [place] [address] Platelet 297 10 3/mcL Normal 150-450 [facility] Comment on above: Performed By: #### L IPID, CBC, ANEU, GFR, ADIFF, CMP, HCV1 #### [place] [address] Platelet mean volume (Bld) [Entitic vol] 9.2 fL Normal 6.6-10.5 [facility] Comment on above: Performed By: #### L IPID, CBC, ANEU, GFR, ADIFF, CMP, HCV1 #### [place] [address] RBC 4.87 10 6/mcL Normal 4.10-5.30 [facility] Comment on above: Performed By: #### L IPID, CBC, ANEU, GFR, ADIFF, CMP, HCV1 #### [address] [address] WBC 6.7 10 3/mcL Normal 4.5-10.8 [facility] Comment on above: Performed By: #### L IPID, CBC, ANEU, GFR, ADIFF, CMP, HCV1 #### [address] [address] CMPon 10-09-2024 Albumin Level 4.2 G/dL Normal 3.2-4.8 [facility] Comment on above: Performed By: #### L IPID, CBC, ANEU, GFR, ADIFF, CMP, HCV1 #### [place] [address] Albumin/Globulin [Mass ratio] 1.0 {ratio} Normal 0.9-1.6 [facility] Comment on above: Performed By: #### L IPID, CBC, ANEU, GFR, ADIFF, CMP, HCV1 #### [place] [address] ALP [Catalytic activity/Vol] 111 U/L Normal 38-126 [facility] Comment on above: Performed By: #### L IPID, CBC, ANEU, GFR, ADIFF, CMP, HCV1 #### [address] [address] ALT [Catalytic activity/Vol] 12 U/L Normal 10-49 [facility] Comment on above: Performed By: #### L IPID, CBC, ANEU, GFR, ADIFF, CMP, HCV1 #### [address] [address] AST [Catalytic activity/Vol] 11 U/L Normal 8-34 [facility] Comment on above: Performed By: #### L IPID, CBC, ANEU, GFR, ADIFF, CMP, HCV1 #### [place] [address] Bili Total 0.50 mg/dL Normal 0.20-1.20 [facility] Comment on above: Result Comment: Use of this assay is not recommended for patients undergoing treatment with eltrombopag due to the potential for falsely elevated results. Performed By: #### L IPID, CBC, ANEU, GFR, ADIFF, CMP, HCV1 #### [place] [id number] BUN/Creatinine Ratio 12.9 ratio Normal 10.0-22.0 [facility] Comment on above: Performed By: #### L IPID, CBC, ANEU, GFR, ADIFF, CMP, HCV1 #### [place] [id number] Calcium [Mass/Vol] 9.8 mg/dL Normal 8.7-10.4 [facility] Comment on above: Performed By: #### L IPID, CBC, ANEU, GFR, ADIFF, CMP, HCV1 #### [place] [id number] Chloride [Moles/Vol] 106 mmol/L Normal 98-110 [facility] Comment on above: Performed By: #### L IPID, CBC, ANEU, GFR, ADIFF, CMP, HCV1 #### [place] [id number] CO2 [Moles/Vol] 30 mmol/L Normal 22-32 [facility] Comment on above: Performed By: #### L IPID, CBC, ANEU, GFR, ADIFF, CMP, HCV1 #### [place] [id number] Creatinine [Mass/Vol] 0.70 mg/dL Normal 0.50-1.20 [facility] Comment on above: Result Comment: Test ing performed on Location analyzer using enzymatic creatinine methodology. Performed By: #### L IPID, CBC, ANEU, GFR, ADIFF, CMP, HCV1 #### [place] [id number] Electrolyte Balance 5.0 mEq/L Normal 4.0-15.0 [facility] Comment on above: Performed By: #### L IPID, CBC, ANEU, GFR, ADIFF, CMP, HCV1 #### [place] [id number] Globulin 4.0 G/dL High 1.5-3.8 [facility] Comment on above: Performed By: #### L IPID, CBC, ANEU, GFR, ADIFF, CMP, HCV1 #### [place] [id number] Glucose [Mass/Vol] 92 mg/dL Normal 70-110 [facility] Comment on above: Performed By: #### L IPID, CBC, ANEU, GFR, ADIFF, CMP, HCV1 #### [place] [id number] Potassium [Moles/Vol] 4.3 mmol/L Normal 3.5-5.0 [facility] Comment on above: Performed By: #### L IPID, CBC, ANEU, GFR, ADIFF, CMP, HCV1 #### [place] [id number] Sodium [Moles/Vol] 141 mmol/L Normal 136-145 [facility] Comment on above: Performed By: #### L IPID, CBC, ANEU, GFR, ADIFF, CMP, HCV1 #### [place] [address] Total Protein 8.2 G/dL Normal 5.7-8.2 [facility] Comment on above: Performed By: #### L IPID, CBC, ANEU, GFR, ADIFF, CMP, HCV1 #### [place] [id number] Urea nitrogen [Mass/Vol] 9.0 mg/dL Normal 8.0-22.0 [facility] Comment on above: Performed By: #### L IPID, CBC, ANEU, GFR, ADIFF, CMP, HCV1 #### [place] [id number] HCVon 10-09-2024 Hep C Ab Non-Reactive Normal Non-Reactive [facility] Comment on above: Performed By: #### L IPID, CBC, ANEU, GFR, ADIFF, CMP, HCV1 #### [place] [id number] Hep C Ab Int Normal [facility] Comment on above: Result Comment: Nonr eactive: Samples with a value < 0.80 are considered nonreactive (negative) for antibodies to HCV. A negative test result does not exclude the possibility of exposure to or infection with HCV. HCV antibodies may be undetectable in some stages of the infection and in some clinical conditions. See Interp Performed By: #### L IPID, CBC, ANEU, GFR, ADIFF, CMP, HCV1 #### [address] [address] LIPIDon 10-09-2024 Cholesterol [Mass/Vol] 112 mg/dL Normal 50-199 [facility] Comment on above: Result Comment: Chol esterol Reference Interval: Less than 200 Desirable 200-239 Borderline high risk 240 and above High risk Performed By: #### L IPID, CBC, ANEU, GFR, ADIFF, CMP, HCV1 #### [address] [address] Cholesterol in HDL [Mass/Vol] 38 mg/dL Low 40-59 [facility] Comment on above: Performed By: #### L IPID, CBC, ANEU, GFR, ADIFF, CMP, HCV1 #### [address] [address] Cholesterol in LDL [Mass/Vol] 58 mg/dL Normal 0-129 [facility] Comment on above: Performed By: #### L IPID, CBC, ANEU, GFR, ADIFF, CMP, HCV1 #### [address] [address] Triglyceride [Mass/Vol] 78 mg/dL Normal 3-149 [facility] Comment on above: Performed By: #### L IPID, CBC, ANEU, GFR, ADIFF, CMP, HCV1 #### [address] [address] OCC (LAB)on 10-09-2024 Occult Blood Fecal Negative Normal Negative [facility] Comment on above: Result Comment: This test utilizes the guaiac fecal blood method, which detects peroxidase activity (heme) indicating bleeding from stomach, small intestine, or large intestine. If bleeding from either upper or lower gastrointestinal tract is a clinical consideration, the [facility] recommends the use of both the guaiac fecal blood test and the Immunochemical fecal blood test. Performed By: #### O CC #### [address] [address] LEANDROOVvioleta 09-12-2024 CN Office Visit (UCWSTR ) SHAWANDA BRINK ([id number]) 1 F Date Time Provider Department 09/12/24 4:45 PM BHARAT MOSHER [facility] During your visit today, we recorded the following information about you: Temperature Pulse Respiration Blood pressure 98.4 degrees 86/minute 16/minute 120/70 Weight 83.6 kg Bharat Mosher MD 09/12/2024 4:33 PM Signed Patient presents with: Nasal Congestion: drainage, cough, upset stomach x 2 days HPI: Feeling sick for 48 hours Positive symptoms: Cough, Nasal Congestion, Rhinorrhea, sinus pressure, stomach cramps and backache, improved Sore throat, Chills, Negative symptoms: Shortness of breath, Vomiting, Diarrhea, OTC: Sinus, Afrin nose spray Currently breast-feeding. MEDICATIONS: Current Outpatient Medications Medication Sig sertraline (ZOLOFT) 100 mg tablet Take 1 tablet by mouth once daily. No current facility-administered medications for this visit. ALLERGIES: ALLERGIES Allergen Reactions Celexa [Citalopram] Other: See Comments Tunnel vision Lexapro [Escitalopr* Rash VITALS: BP 120/70 Pulse 86 Temp 36.9 ?C (98.4 ?F) Resp 16 Wt 83.6 kg (184 lb 4.9 oz) LMP 11/04/2021 SpO2 99% BMI 30.82 kg/m? PHYSICAL EXAM: GEN: mildly ill appearing HEENT: PERRL, EOMI, conjunctiva clear Ears: Right canal occluded by cerumen. LTM without erythema, bulge, or effusion Sinuses: non-tender frontal sinus, non-tender maxillary sinuses Throat: moist mucous membranes, mild erythema, no exudate Neck: supple, no thyromegaly, no lymphadenopathy HEART: regular rate, regular rhythm, no murmurs LUNGS: clear to auscultation, no wheezes or crackles, no increased WOB ASSESSMENT/PLAN: 1. URI, acute - ICD9: 465.9, ICD10: J06.9 - suspect viral URI, differential includes influenza and COVID-19. - Discussed supportive care treatment with home isolation (fever free for 24 hours and improving symptoms), rest, cold medicine, and analgesia. - Red flags to seek further treatment include chest pain, shortness of breath, and lethargy; in the ER if severe. 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 Bharat Mosher MD Allergies As of Date: 09/12/2024 Noted Allergy Reaction CELEXA (CITALOPRAM) 03/21/2024 14 - Other: See Comments Comments: Tunnel vision LEXAPRO (ESCITALOPRAM) 03/21/2024 2 - Rash Date Reviewed: 09/12/2024 Reviewed by: Allyson Peters MA - Fully Assessed Reason for Visit: Nasal Congestion [235] Cmt: drainage, cough, upset stomach x 2 days Primary Visit Diagnosis:URI, acute [J06.9] Order(s):COVID AND INFLUENZA A/B AND RSV PCR, ROUTINE [SQCVFLRS] Order #: [id number] #:[id number] Prescriptions as of 09/12/2024 - sertraline (ZOLOFT) 100 mg tablet Take 1 tablet by mouth once daily. Problem List As Of Date 09/12/2024 Noted Resolved Acne vulgaris [L70.0] 08/18/2015 Mild persistent asthma without complication [J4*09/27/2016 Flat foot [M21.40] 07/20/2017 Influenza vaccine refused [Z28.21] 07/20/2017 Depression [F32.A] 08/04/2021 Generalized anxiety disorder [F41.1] 08/04/2021 Level of Service: OFFICE/OUTPATIENT ESTABLISHED LOW MDM 20 MIN [87864] Letter Text Encounter Status:Closed by BHARAT MOSHER on 09/12/24 Normal [facility] HBSABon 08-10-2024 Hep B Surf Ab <3.1 Low >=10.0 [facility] Comment on above: Result Comment: 0 to < 10.0 mIU/mL Nonreactive Patient is considered not to have protective immunity to HBV infection >/= 10.0 mIU/mL Reactive Patient is considered to have protective immunity to HBV infection. This assay is traceable to the World Health Organization (WHO) Hepatitis B Immunoglobulin 1st International Reference Preparation (1976). The accepted criteria for immunity to HBV is anti-HBs activity >/= 10.0 mIU/mL, as defined by the WHO International Reference Preparation. Performed By: #### H BSAB #### [place] [address] Chio 07-26-2024 MARS Telephone (PSWSTR) SHAWANDA BRINK ([id number]) 1 F Date Time Provider Department 07/26/24 [facility] During your visit today, we recorded the following information about you: Queta Mccarty LPN 07/26/2024 2:16 PM Signed Call placed to scheduled VV for patient so refills can be sent to [facility] for Zoloft. VV on 08/14/2024 @ 8:30 Zoloft 50 mg 1 tab PO every day SHIRA Diaz Nishi J, CERTIFIED DIETARY MANAGER.MILL RECORDER 07/26/2024 2:21 PM Signed Noted scheduled follow up. Refills sent to the pharmacy. Allergies As of Date: 07/26/2024 Noted Allergy Reaction CELEXA (CITALOPRAM) 03/21/2024 14 - Other: See Comments Comments: Tunnel vision LEXAPRO (ESCITALOPRAM) 03/21/2024 2 - Rash Date Reviewed: 05/14/2024 Reviewed by: Jes Acosta LPN - Fully Assessed Reason for Visit: Appointment [186] Order(s):sertraline (ZOLOFT) 50 mg tabletTake 1 tablet by mouth once daily.Disp: 30 tabletRfl: 1 Prescriptions as of 07/26/2024 - sertraline (ZOLOFT) 50 mg tablet Take 1 tablet by mouth once daily. Problem List As Of Date 07/26/2024 Noted Resolved Acne vulgaris [L70.0] 08/18/2015 Mild persistent asthma without complication [J4*09/27/2016 Flat foot [M21.40] 07/20/2017 Influenza vaccine refused [Z28.21] 07/20/2017 Depression [F32.A] 08/04/2021 Generalized anxiety disorder [F41.1] 08/04/2021 Prescriptions ordered this encounter Disp Refills Start End SERTRALINE 50 MG TABLET 30 t* 1 07/26/2024 09/24/2024 Route: ORAL Sig: Take 1 tablet by mouth once daily. Medications Discontinued During This Encounter Prescriptions - sertraline (ZOLOFT) 50 mg tablet (Discontinued) Take 1 tablet by mouth once daily. Encounter Status:Closed by MAXINE ELLIS on 07/26/24 [facility] 06-05-2024 [facility] SHAWANDA BRINK ([id number]) 1 F Date Time Provider Department 06/05/24 ISSAC FERNÁNDEZ [facility] During your visit today, we recorded the following information about you: Tessy Prabhakar LPN 06/05/2024 4:02 PM Signed Pt states her breast is tender, swollen AND painful, she is beginning to develop a rash. She has not checked her temp. Pt is concerned that she has mastitis. Pt is breast feeding. She has tried to contact her [employer] but they have not returned her call. No openings avail in primary care the rest of today. Pt asked if she could be seen in . Pt is going to be seen in [facility] today. Tessy Prabhakra LPN Allergies As of Date: 06/05/2024 Noted Allergy Reaction CELEXA (CITALOPRAM) 03/21/2024 14 - Other: See Comments Comments: Tunnel vision LEXAPRO (ESCITALOPRAM) 03/21/2024 2 - Rash Date Reviewed: 05/14/2024 Reviewed by: Jes Acosta LPN - Fully Assessed Reason for Visit: Breast Problem [16] Prescriptions as of 06/05/2024 - sertraline (ZOLOFT) 50 mg tablet Take 1 tablet by mouth once daily. Problem List As Of Date 06/05/2024 Noted Resolved Acne vulgaris [L70.0] 08/18/2015 Mild persistent asthma without complication [J4*09/27/2016 Flat foot [M21.40] 07/20/2017 Influenza vaccine refused [Z28.21] 07/20/2017 Depression [F32.A] 08/04/2021 Generalized anxiety disorder [F41.1] 08/04/2021 Encounter Status:Closed by TESSY PRABHAKAR on 06/05/24 [facility] CNOVon 05-14-2024 CNOV Office Visit (WSTR ) SHAWANDA BRINK ([id number]) 1 F Date Time Provider Department 05/14/24 11:15 AM SANTOS SOLER [facility] During your visit today, we recorded the following information about you: Temperature Pulse Respiration Blood pressure 97.9 degrees 97/minute 18/minute 110/78 Weight 83.8 kg Santos Soler APRN.MILL RECORDER 05/14/2024 12:33 PM Signed Subjective HPI HPI Shawandadaija Brink is a 18 year old female who presents today for CC of cough, sinus pressure, h/a, fever. This started 8 days ago. Has tried otc medication for relief. Symptoms are worsened by nothing. Risk factors sick exposures. Nonsmoker. . Denies possibility of being . .Patient presents with: Cough: Cough, congestion, fever, AKERS and sinus x 8 days PAST MEDICAL HISTORY Diagnosis Date Acne vulgaris 08/18/2015 Anxiety Bipolar 2 disorder (HCC) Cough variant asthma 09/27/2016 Depression PMH - PAST MEDICAL HISTORY OF vascular rose left ankle PAST SURGICAL HISTORY Procedure Laterality Date NONE ALLERGIES Celexa [Citalopram] and Lexapro [Escitalopram] MEDICATIONS Zinc Gluconate 100 mg tab Take by mouth. albuterol HFA (PROVENTIL HFA, VENTOLIN HFA) 90 mcg/actuation inhaler Inhale 2 Puffs as instructed every 6 hours as needed for wheezing/shortness of breath. Administer using a spacer. (Patient not taking: Reported on 11/05/2021 ) FAMILY HISTORY Problem Relation Age of Onset Ange Disease Mother other (pulmnary embolism) Father other (mass on liver) Father other (depression and anxiety) Maternal Grandmother Cervical Cancer Maternal Grandmother other ([place]) Maternal Grandfather 49 other (depression and anxiety) Paternal Grandmother Bipolar disorder Paternal Grandmother Anxiety disorder Paternal Grandfather Cancer Other PATERNAL AND MATERNAL SIDES Diabetes Other PATERNAL AND MATERNAL SIDES other (CLOTTING DISORDER) Other PATERNAL SIDE - FACTOR 5 DISORDER Paternal great aunt Social History Tobacco Use Smoking status: Never Smokeless tobacco: Never Vaping Use Vaping status: Never Used Substance Use Topics Alcohol use: Never Drug use: Never Review of Systems Constitutional: Negative for fever. HENT: Positive for congestion, sinus pain and sore throat. Negative for ear pain and nosebleeds. Respiratory: Positive for cough, hemoptysis, sputum production and shortness of breath. Negative for wheezing. Cardiovascular: Negative for chest pain. Musculoskeletal: Negative for neck pain. Skin: Negative for itching and rash. Neurological: Positive for headaches. Objective Blood pressure 110/78, pulse 97, temperature 36.6 ?C (97.9 ?F), temperature source Tympanic, resp. rate 18, weight 83.8 kg (184 lb 11.9 oz), last menstrual period 11/04/2021, SpO2 99%. Physical Exam Constitutional: General: She is not in acute distress. Appearance: She is not toxic-appearing or diaphoretic. HENT: Head: Normocephalic and atraumatic. Cardiovascular: Rate and Rhythm: Normal rate and regular rhythm. Heart sounds: Normal heart sounds, S1 normal and S2 normal. Pulmonary: Effort: Pulmonary effort is normal. Breath sounds: Rhonchi (scattered bilat) present. No decreased breath sounds, wheezing or rales. Neurological: Mental Status: She is alert and oriented to person, place, and time. Gait: Gait is intact. ASSESSMENT/PLAN: 1. Sinobronchitis - ICD9: 473.9, 490, ICD10: J32.9, J40 (primary diagnosis) - Will begin treatment with as per antibiotic as written, see orders - Supportive care with plenty of fluids, rest, and analgesia prn. - Follow up in 3-5 days if symptoms persist or worsen. - AMOXICILLIN 875 MG-POTASSIUM CLAVULANATE 125 MG TABLET 2. Acute cough - ICD9: 786.2, ICD10: R05.1 - XR CHEST 2V FRONTAL/LAT IMPRESSION: No acute radiographic abnormality. Dictated by : MD Santos BURGOS APRN.MILL RECORDER Allergies As of Date: 05/14/2024 Noted Allergy Reaction CELEXA (CITALOPRAM) 03/21/2024 14 - Other: See Comments Comments: Tunnel vision LEXAPRO (ESCITALOPRAM) 03/21/2024 2 - Rash Date Reviewed: 05/14/2024 Reviewed by: Jes Acosta LPN - Fully Assessed Reason for Visit: Cough [28] Cmt: Cough, congestion, fever, AKERS and sinus x 8 days Primary Visit Diagnosis:Sinobronchiti s [J32.9, J40] Other Visit Diagnosis:Acute cough [R05.1] Order(s):XR CHEST 2V FRONTAL/LAT [[id number]] Order #: [id number] #:[id number] amoxicillin-clavulanate potassium (AUGMENTIN) 875-125 mg per tabletTake 1 tablet by mouth two times a day for 7 days.Disp: 14 tabletRfl: 0 Prescriptions as of 05/14/2024 - amoxicillin-clavulanate potassium (AUGMENTIN) 875-125 mg per tablet Take 1 tablet by mouth two times a day for 7 days. - Zinc Gluconate 100 mg tab Take by mouth. - albuterol HFA (PROVENTIL HFA, VENTOLIN HFA) 90 mcg/actuation inhaler Inha (more content not included)... Normal [facility] XR CHEST 2V FRONTAL/LATon XR CHEST 2V FRONTAL/LAT * * *Final Repor t* * * DATE OF EXAM: May 14 2024 11:56AM WOX [id number] - XR CHEST 2V FRONTAL/LAT / PROCEDURE REASON: Acute cough * * * * Physician Interpretation * * * * EXAMINATION: CHEST RADIOGRAPH (2 VIEW FRONTAL and LATERAL) CLINICAL HISTORY: Acute cough MQ: XC2_6 EXAM DATE/TIME: 05/14/2024 11:56 AM COMPARISON: Chest x-ray dated 07/21/2016 RESULT: Lines, tubes, and devices: None. Lungs and pleura: No consolidation. No lung mass. No pleural effusion. No pneumothorax. Cardiomediastinal silhouette: Normal cardiomediastinal silhouette. Bones and soft tissues: Unremarkable. IMPRESSION: No acute radiographic abnormality. Lifter/Driver: [facility] Transcribe Date/Time: May 14 2024 12:07P Dictated by : ALEX CASTRO MD This examination was interpreted and the report reviewed and electronically signed by: ALEX CASTRO MD on May 14 2024 12:07PM EST [id number] Normal [facility] XR Chest PA and Lateralon IMPRESSION: No acute radiographic abnormality. Lifter/Driver: [facility] Transcribe Date/Time: May 14 2024 12:07P Dictated by : ALEX CASTRO MD This examination was interpreted and the report reviewed and electronically signed by: ALEX CASTRO MD on May 14 2024 12:07PM EST DIVISION OF RADIOLOGY * * *Final Report* * * DATE OF EXAM: May 14 2024 11:56AM WOX [id number] - XR CHEST 2V FRONTAL/LAT / PROCEDURE REASON: Acute cough * * * * Physician Interpretation * * * * EXAMINATION: CHEST RADIOGRAPH (2 VIEW FRONTAL & LATERAL) CLINICAL HISTORY: Acute cough MQ: XC2_6 EXAM DATE/TIME: 05/14/2024 11:56 AM COMPARISON: Chest x-ray dated 07/21/2016 RESULT: Lines, tubes, and devices: None. Lungs and pleura: No consolidation. No lung mass. No pleural effusion. No pneumothorax. Cardiomediastinal silhouette: Normal cardiomediastinal silhouette. Bones and soft tissues: Unremarkable. DIVISION OF RADIOLOGY Provider, Jacqueline Rosales - 05/14/2024 * * *Final Report* * * DATE OF EXAM: May 14 2024 11:56AM WOX [id number] - XR CHEST 2V FRONTAL/LAT / PROCEDURE REASON: Acute cough * * * * Physician Interpretation * * * * EXAMINATION: CHEST RADIOGRAPH (2 VIEW FRONTAL & LATERAL) CLINICAL HISTORY: Acute cough MQ: XC2_6 EXAM DATE/TIME: 05/14/2024 11:56 AM COMPARISON: Chest x-ray dated 07/21/2016 RESULT: Lines, tubes, and devices: None. Lungs and pleura: No consolidation. No lung mass. No pleural effusion. No pneumothorax. Cardiomediastinal silhouette: Normal cardiomediastinal silhouette. Bones and soft tissues: Unremarkable. IMPRESSION IMPRESSION: No acute radiographic abnormality. Lifter/Driver: [facility] Transcribe Date/Time: May 14 2024 12:07P Dictated by : ALEX CASTRO MD This examination was interpreted and the report reviewed and electronically signed by: ALEX CASTRO MD on May 14 2024 12:07PM [facility] Radiology Study observation (narrative) Danya Parker XR Chest PA and LateralOrder ed By: Ccf Provider on 05-14-2024 [facility] MR/BMS.Rojas 05-03-2024 MR/BMS.[address] [address] OFFICE VISIT Date of Service: 05/03/24 MR#: [id number] Acct: [id number] Name: SHAWANDA BRINK Rep #: [id number] : 2005 Provider: Lanie Antunez NP Age/Sex: 18/F [place] [facility] [place]: Signed Intake Vital Signs 03/15/24 15:59 05/04/24 06:42 Height 5 ft 4.17 in 5 ft 4.17 in Intake Visit 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 Complaint: pumping assessment Allergies No Known Allergies Allergy (Verified 03/15/24 15:59) : Yes [facility] Medical History (Updated 04/12/24 @ 16:42 by Yohana Su) Former smoker Hx of gestational diabetes in prior , currently Vaginal delivery hemorrhage depression Gestational diabetes Panic disorder Generalized anxiety disorder Bipolar 2 disorder Seasonal allergies Contraception management Anemia due to blood loss, acute hemorrhage macrosomia GBS (group B Streptococcus carrier), +RV culture, currently Gestational diabetes Anxiety Palpitations Supervision of high risk , antepartum Asthma Depression Family History Grandmother Cervical cancer, Onset Age: 40 maternal Family history of recurrent miscarriage maternal- 2 miscarriages Grandfather Myocardial infarction Father Heart disease Mother Family history of recurrent miscarriage 2 miscarriages Aunt Family history of recurrent miscarriage Maternal- 2 miscarriages Social History adopted: No household members: significant other and children housing: house number of children: 1 current occupational status: employed current occupation: Will be starting at [employer] current occupational exposures/hazards: No pets and animals: No (not managing litterbox while ) history of recent travel: No ([place]) sexually active: Yes Smoking Status: Former smoker how long ago did patient quit smoking: Quit 04/08 alcohol intake: never substance use type: does not use well-balanced diet: daily or most days caffeine: No (ocassional) eating out: 1-3 times/week during the past year weight has: increased > 10 lbs what type of physical activity do you participate in: none jenni/rastafari: [employer] seatbelt use: always do you feel safe at home: Yes additional social history: [employer] History 2 Elective abortions Hx Para 1 Spontaneous abortions Hx # Term Pregnancies 2 Ectopic pregnancies Hx # Pregnancies Multiple births # of living children 2 Past Pregnancies Del. Date Name GA/Weeks Outcome Route Bth Weight Gen Labor Lgth Anesthesia Del Locatn Provider FOB 12/15/22 Oksana 39 live - full term vacuum 8lbs 8oz Female [facility] Dr Quynh Marie 01/30/24 Charlie 40 live - full term Male [facility] KW Delivery Date: 12/15/22 Last Updated by: Jany Calderon Gestational diabetes Delivery Date: 01/30/24 Last Updated by: Yohana Su IOL HPI HPI HPI: SHAWANDA BRINK, is a 18 F who presents to the office today for pumping and milk supply assessment. History provided by the patient. ROS ROS Const Constitutional: Denies fever(s) or lethargy : Denies nipple discharge Skin Skin/Breast: Denies breast pain, breast skin changes or nipple discharge Details: on demand q2 hours during the day and q4 hours at night, baby will usually nurse on one side about 10 minutes but sometimes will do that other side, goal to get 9 feeds per day per baby's PCP, patient concerned d/t pumping volumes at work- works every other weekend (12 hour shifts) baby was taking 13-15 oz when she was at work and currently she is pumping about 10 oz, does have some milk stored up, using MomCozy and Zomee pump Exam Maternal Assessment Breast Assessment Bilateral Breasts: Full (slight fullness ) Nipple Assessment Bilateral Nipples: Everted Areolar Tissue Areolar Tissue: Pliable Assessment Baby Feeding History Is your baby latching onto the breast: Yes Number of Breast Feedings in 24 hours: 9 Minutes per breast: First Breast: 10 Minutes per breast: Second Breast: 0-10 Supplements Supplement Type:: None Breast Pumping Type of Breast Pump: MomCozy, Zomee Frequency: q 3 hours when at work Amount: 10 oz Goals Breast Feeding Goals: Exclusive Exam Const General: comfortable and no acute distress Orientation: alert and oriented x3 Chest Breast inspection: normal inspection of the breasts Breast palpation: normal palpation of the breasts Resp Effort Inspection: normal r (more content not included)... Normal [facility] UA DIP, URINE (POC)on 2023 BILIRUBIN UA (POCT) Negative Negative [facility] CLARITY [facility]POCT[facility] ([facility]) Dark yellow [facility] GLUCOSE UA (POCT) Negative Negative mg/dL [facility] Hemoglobin Ql (U) Negative Negative [facility] Interpretation and review of laboratory results Abnormal [facility] KETONE UA (POCT) Negative Negative mg/dL [facility] LEUKOCYTES UA (POCT) Negative Negative [facility] NITRITE UA (POCT) Negative Negative [facility] PH UA (POCT) 6.0 4.5 - 8.0 [facility] Protein Ql (U) Trace Abnormal Negative mg/dL [facility] SPECIFIC GRAVITY UA (POCT) >=1.030 1.005 - 1.030 [facility] UROBILINOGEN UA (POCT) 0.2 Karin l E.U./dL [facility] Location:[facility], [address] [place] [address], [place], [place], [address] [place] [address] POINT OF CARE [facility] STREP A MOLECULAR (POC)on Procedural Control Valid [facility] Strep A (POCT) Negative Negative [facility] Chlamydia trachomatis rRNA d etection by probe and target amplification methodOrdered By: Kate Guy on 07-08-2023 C. trachomatis rRNA REYNALDO+probe Ql (Unsp spec) Negative Negative [facility] Culture, urineOrdered By: Estela Guy on 07-08-2023 Bacteria identified Cx Nom (U) Positive [facility] Laboratory - Microbiology an d Antimicrobial susceptibilityOrdered By: Kate Guy on 07-08-2023 N. gonorrhoeae DNA REYNALDO+probe Ql (Unsp spec) Negative Negative [facility] Comment on above: Performed at: =[address] [id number] Director: Ashley Barton MD, Phone: [phone] Thin prep Papanicolaou smear with manual screeningOrdered By: Monisha Vera on 01-07-2023 Genital Culture Gardnerella vaginalis [facility] Culture, urineOrdered By: Leonardo Vera on 01-06-2023 Bacteria identified Cx Nom (U) Positive [facility] Gram stain for investigation of transfusion reactionOrdered By: Monisha Vera on 01-05-2023 Microscopic observation Gram stain Nom (Unsp spec) [facility] Laboratory - Chemistry and C hemistry - challengeon 01-04-2023 Bilirubin Ql (U) Negative [facility] Glucose Ql (U) Negative [facility] Ketones Ql (U) Negative [facility] pH (U) 5.0 [pH] [facility] Specific gravity (U) [Rel density] 1.010 [facility] Urobilinogen (U) [Mass/Vol] Negative [facility] Laboratory - Hematology and Cell countson 01-04-2023 Hemoglobin Ql (U) Negative [facility] Laboratory - Specimen inform ationon 01-04-2023 Clarity (U) Clear [facility] Color (U) YELLOW [facility] Laboratory - Urinalysison Nitrite Ql (U) Negative [facility] Protein Ql (U) Negative [facility] No Panel Informationon 01-04 Urine Leukocytes Positive [facility] Urine Non-Hemolyzed Blood [facility] Absolute lymphocyte countOrd ered By: Dr. Ochoa on 12-16-2022 Lymphocytes Auto (Unsp spec) [#/Vol] 1.00 10*3/uL 0.83-4.51 [facility] Basophil percentageOrdered B y: Dr. Ochoa on 12-16-2022 Basophils/100 WBC (Bld) 0.2 % 0-1 [facility] Eosinophils/100 WBC (Bld) 0.6 % 0-5 [facility] Neutrophils (Bld) [#/Vol] 10.1 10*3/uL 2.0-7.7 [facility] Neutrophils/100 WBC (Bld) 84.7 % 47-70 [facility] WBC (Bld) [#/Vol] 11.9 10*3/uL 4.4-11.0 [facility] Blood erythrocytes count (nu mber/volume)Ordered By: Dr. Ochoa on 12-16-2022 RBC (Bld) [#/Vol] 2.85 10*6/uL 4.2-5.4 [facility] Blood hemoglobin measurement (mass/volume)Ordered By: Dr. Ochoa on 12-16-2022 Hemoglobin (Bld) [Mass/Vol] 8.1 g/dL 12.0-15.0 [facility] Blood lymphocytes/100 leukoc ytesOrdered By: Dr. Ochoa on 12-16-2022 Lymphocytes/100 WBC (Bld) 8.4 % 19-41 [facility] Blood monocytes/100 leukocyt esOrdered By: Dr. Ochoa on 12-16-2022 Monocytes/100 WBC (Bld) 5.5 % 0-10 [facility] Blood platelet mean volumeOr dered By: Dr. Ochoa on 12-16-2022 Platelet mean volume (Bld) [Entitic vol] 10.3 fL 6.2-12.0 [facility] Determination of erythrocyte mean corpuscular volume (MCV)Ordered By: Dr. Ochoa on 12-16-2022 MCV (RBC) [Entitic vol] 89.5 fL 81-99 [facility] Glucose Glucometer (BldC) [M ass/Vol]Ordered By: Dr. Cameron on 12-16-2022 Glucose [Mass/Vol] 66 mg/dL 74-106 [facility] Comment on above: MANAGEMENT OF PATIEN T CARE PER NURSING PROTOCOL Hematocrit Auto (Bld) [Volum e fraction]Ordered By: Dr. Ochoa on 12-16-2022 Hematocrit (Bld) [Volume fraction] 25.5 % 37-47 [facility] Laboratory - Hematology and Cell countsOrdered By: Dr. Ochoa on 12-16-2022 Erythrocyte distribution width (RBC) [Entitic vol] 45.6 fL 35.1-43.9 [facility] Erythrocyte distribution width (RBC) [Ratio] 14.1 % 11.6-14.6 [facility] Immature granulocytes/100 WBC (Bld) 0.600 % 0.0-0.9 [facility] Comment on above: IG% - Immature Granu locytes (promyelocytes, myelocytes and metamyelocytes) > 1% indicates that a LEFT SHIFT is Present. MCH (RBC) [Entitic mass] 28.4 pg 27.0-32.0 [facility] Nucleated RBC/100 WBC (Bld) [Ratio] 0 % 0-5 [facility] MCHC Auto (RBC) [Mass/Vol]Or dered By: Dr. Ochoa on 12-16-2022 MCHC (RBC) [Mass/Vol] 31.8 g/dL 32-36 [facility] Platelets bldOrdered By: Dr. Ochoa on 12-16-2022 Platelets (Bld) [#/Vol] 156 10*3/uL 150-450 [facility] Absolute lymphocyte countOrd ered By: Dr. Cameron on 12-15-2022 Lymphocytes Auto (Unsp spec) [#/Vol] 0.60 10*3/uL 0.83-4.51 [facility] Basophil percentageOrdered B y: Dr. Cameron on 12-15-2022 Basophils/100 WBC (Bld) 0.3 % 0-1 [facility] Eosinophils/100 WBC (Bld) 0.1 % 0-5 [facility] Neutrophils (Bld) [#/Vol] 17.3 10*3/uL 2.0-7.7 [facility] Neutrophils/100 WBC (Bld) 91.2 % 47-70 [facility] WBC (Bld) [#/Vol] 19.0 10*3/uL 4.4-11.0 [facility] Blood erythrocytes count (nu mber/volume)Ordered By: Dr. Cameron on 12-15-2022 RBC (Bld) [#/Vol] 3.63 10*6/uL 4.2-5.4 [facility] Blood hemoglobin measurement (mass/volume)Ordered By: Dr. Cameron on 12-15-2022 Hemoglobin (Bld) [Mass/Vol] 10.5 g/dL 12.0-15.0 [facility] Blood lymphocytes/100 leukoc ytesOrdered By: Dr. Cameron on 12-15-2022 Lymphocytes/100 WBC (Bld) 3.2 % 19-41 [facility] Blood manual differential co mment interpretation (narrative result)Ordered By: Dr. Cameron on 12-15-2022 Manual differential comment Toyn (Bld) [Interp] SCANNED [facility] Blood monocytes/100 leukocyt esOrdered By: Dr. Cameron on 12-15-2022 Monocytes/100 WBC (Bld) 4.7 % 0-10 [facility] Blood platelet mean volumeOr dered By: Dr. Cameron on 12-15-2022 Platelet mean volume (Bld) [Entitic vol] 11.0 fL 6.2-12.0 [facility] Determination of erythrocyte mean corpuscular volume (MCV)Ordered By: Dr. Cameron on 12-15-2022 MCV (RBC) [Entitic vol] 87.6 fL 81-99 [facility] Glucose Glucometer (BldC) [M ass/Vol]Ordered By: Dr. Cameron on 12-15-2022 Glucose [Mass/Vol] 89 mg/dL 74-106 [facility] Comment on above: MANAGEMENT OF PATIEN T CARE PER NURSING PROTOCOL Hematocrit Auto (Bld) [Volum e fraction]Ordered By: Dr. Cameron on 12-15-2022 Hematocrit (Bld) [Volume fraction] 31.8 % 37-47 [facility] Laboratory - Hematology and Cell countsOrdered By: Dr. Cameron on 12-15-2022 Erythrocyte distribution width (RBC) [Entitic vol] 43.9 fL 35.1-43.9 [facility] Erythrocyte distribution width (RBC) [Ratio] 13.8 % 11.6-14.6 [facility] Immature granulocytes/100 WBC (Bld) 0.500 % 0.0-0.9 [facility] Comment on above: IG% - Immature Granu locytes (promyelocytes, myelocytes and metamyelocytes) > 1% indicates that a LEFT SHIFT is Present. MCH (RBC) [Entitic mass] 28.9 pg 27.0-32.0 [facility] Nucleated RBC/100 WBC (Bld) [Ratio] 0 % 0-5 [facility] MCHC Auto (RBC) [Mass/Vol]Or dered By: Dr. Cameron on 12-15-2022 MCHC (RBC) [Mass/Vol] 33.0 g/dL 32-36 [facility] Platelets bldOrdered By: Dr. Cameron on 12-15-2022 Platelets (Bld) [#/Vol] 179 10*3/uL 150-450 [facility] Serum Treponema species anti body detectionOrdered By: Kate Guy on 12-13-2022 Treponema sp Ab Ql (S) Non-Reactive [facility] Laboratory - Chemistry and C hemistry - challengeon 12-10-2022 Glucose Ql (U) Negative [facility] Laboratory - Urinalysison Protein Ql (U) Negative [facility] Laboratory - Chemistry and C hemistry - challengeon 12-07-2022 Glucose Ql (U) Negative [facility] Laboratory - Urinalysison Protein Ql (U) Negative [facility] No Panel InformationOrdered By: Dr. Ochoa on 12-04-2022 Group B Streptococcus Culture Streptococcus agalactiae (B) [facility] Laboratory - Chemistry and C hemistry - challengeon 11-29-2022 Glucose Ql (U) Negative [facility] Laboratory - Urinalysison Protein Ql (U) Negative [facility] Laboratory - Chemistry and C hemistry - challengeon 11-23-2022 Glucose Ql (U) Negative [facility] Laboratory - Urinalysison Protein Ql (U) Negative [facility] Laboratory - Chemistry and C hemistry - challengeon 11-16-2022 Glucose Ql (U) Negative [facility] Laboratory - Hematology and Cell countson 11-16-2022 HbA1c (Bld) [Mass fraction] 5.7 % 4.2-6.3 [facility] Laboratory - Urinalysison Protein Ql (U) Negative [facility] Laboratory - Chemistry and C hemistry - challengeon 11-11-2022 Glucose Ql (U) Negative [facility] Laboratory - Urinalysison Protein Ql (U) Negative [facility] Basophil percentageOrdered B y: Dr. Cameron on 11-10-2022 Basophil percentage 0 SEEN /hpf 0-5 [facility] WBC (Bld) [#/Vol] 11.9 10*3/uL 4.4-11.0 [facility] Bilirubin Test strip Ql (U)O rdered By: Dr. Cameron on 11-10-2022 Bilirubin Ql (U) Negative Negative [facility] Blood erythrocytes count (nu mber/volume)Ordered By: Dr. Cameron on 11-10-2022 RBC (Bld) [#/Vol] 3.93 10*6/uL 4.2-5.4 [facility] Blood hemoglobin measurement (mass/volume)Ordered By: Dr. Cameron on 11-10-2022 Hemoglobin (Bld) [Mass/Vol] 11.8 g/dL 12.0-15.0 [facility] Blood platelet mean volumeOr dered By: Dr. Cameron on 11-10-2022 Platelet mean volume (Bld) [Entitic vol] 10.6 fL 6.2-12.0 [facility] Determination of erythrocyte mean corpuscular volume (MCV)Ordered By: Dr. Cameron on 11-10-2022 MCV (RBC) [Entitic vol] 90.3 fL 81-99 [facility] Hematocrit Auto (Bld) [Volum e fraction]Ordered By: Dr. Cameron on 11-10-2022 Hematocrit (Bld) [Volume fraction] 35.5 % 37-47 [facility] Ketones Test strip Ql (U)Ord ered By: Dr. Cameron on 11-10-2022 Ketones Ql (U) Negative Negative [facility] Laboratory - Chemistry and C hemistry - challengeOrdered By: Dr. Cameron on 11-10-2022 ALT [Catalytic activity/Vol] 19 U/L 13-56 [facility] Laboratory - Hematology and Cell countsOrdered By: Dr. Cameron on 11-10-2022 Erythrocyte distribution width (RBC) [Entitic vol] 42.9 fL 35.1-43.9 [facility] Erythrocyte distribution width (RBC) [Ratio] 13.0 % 11.6-14.6 [facility] MCH (RBC) [Entitic mass] 30.0 pg 27.0-32.0 [facility] MCHC Auto (RBC) [Mass/Vol]Or dered By: Dr. Cameron on 11-10-2022 MCHC (RBC) [Mass/Vol] 33.2 g/dL 32-36 [facility] Mucus LM Ql (Urine sed)Order ed By: Dr. Cameron on 11-10-2022 Mucus Ql (Urine sed) 0 SEEN /hpf [facility] Nitrite Test strip Ql (U)Ord ered By: Dr. Cameron on 11-10-2022 Nitrite Ql (U) Negative Negative [facility] No Panel InformationOrdered By: Dr. Cameron on 11-10-2022 Estimated Creatinine Clearance Calc 100.18 ml/min [facility] Estimated GFR (MDRD) Amer 122 mL/min >60 [facility] Comment on above: GFR Calc Estimated GFR (MDRD) Non-Af Amer 101 mL/min >60 [facility] Comment on above: Non- GFR Calc Platelets bldOrdered By: Dr. Cameron on 11-10-2022 Platelets (Bld) [#/Vol] 238 10*3/uL 150-450 [facility] Protein Test strip Ql (U)Ord ered By: Dr. Cameron on 11-10-2022 Protein Ql (U) Negative Negative [facility] Serum or plasma creatinine m easurement (mass/volume)Ordered By: Dr. Cameron on 11-10-2022 Creatinine [Mass/Vol] 0.78 mg/dL 0.55-1.02 [facility] Comment on above: The validity of the calculated GFR & GFRAA in patients over 70 years has not been determined. Clinical correlation is essential. Serum or plasma uric acid me asurement (mass/volume)Ordered By: Dr. Cameron on 11-10-2022 Urate [Mass/Vol] 2.1 mg/dL 2.6-6.0 [facility] Comment on above: The drugs N-Acetylcy steine and Metamizole may falsely depress this assay. Squamous epithelial cells de tection in urine sediment by light microscopyOrdered By: Dr. Cameron on 11-10-2022 Epithelial cells.squamous LM Ql (Urine sed) 0-5 SEEN /hpf 5-10 [facility] Thin prep Papanicolaou smear with manual screeningOrdered By: Dr. Cameron on 11-10-2022 Thin prep Papanicolaou smear with manual screening 10 U/L 15-37 [facility] Urine blood detectionOrdered By: Dr. Cameron on 11-10-2022 RBC Ql (U) Negative Negative [facility] RBC Ql (U) 0 SEEN /hpf 0-5 [facility] Urine clarityOrdered By: Dr. Cameron on 11-10-2022 Clarity (U) Clear Clear [facility] Urine color determinationOrd ered By: Dr. Cameron on 11-10-2022 Color (U) Yellow Yellow [facility] Urine creatinine measurement (mass/volume)Ordered By: Dr. Cameron on 11-10-2022 Creatinine (U) [Mass/Vol] 53.10 mg/dL NO RANGE EST. [facility] Urine glucose detectionOrder ed By: Dr. Cameron on 11-10-2022 Glucose Ql (U) 100 mg/dl Normal [facility] Urine leukocyte esterase det ection by dipstickOrdered By: Dr. Cameron on 11-10-2022 Leukocyte esterase Test strip Ql (U) 25 /ul Negative [facility] Urine pHOrdered By: Dr. Micah choe on 11-10-2022 pH (U) 7.0 [pH] 5.0 - 8.0 [facility] Urine protein measurement (m ass/volume)Ordered By: Dr. Cameron on 11-10-2022 Protein (U) [Mass/Vol] 10.6 mg/dL 0.0-11.8 [facility] Urine protein/creatinine mas s ratioOrdered By: Dr. Cameron on 11-10-2022 Protein/Creatinine (U) [Mass ratio] 200 mg/g CRE 0-200 [facility] Urine sediment bacteria coun t by microscopy (number/high power field)Ordered By: Dr. Cameron on 11-10-2022 Bacteria LM.HPF (Urine sed) [#/Area] 0 /[HPF] None Seen [facility] Urine specific gravity measu rementOrdered By: Dr. Cameron on 11-10-2022 Specific gravity (U) [Rel density] 1.015 1.002-1.030 [facility] Urobilinogen Auto test strip Ql (U)Ordered By: Dr. Cameron on 11-10-2022 Urobilinogen Ql (U) Normal mg/dl Normal [facility] Laboratory - Chemistry and C hemistry - challengeon 11-03-2022 Glucose Ql (U) Negative [facility] Laboratory - Urinalysison Protein Ql (U) Negative [facility] Gestational diabetes screen 1-hour screen with 50g oral glucose loadOrdered By: Monisha Vera on 11-02-2022 Glucose 1 Hr post 50 g glucose PO [Mass/Vol] 201 mg/dL 70-140 [facility] Absolute lymphocyte countOrd ered By: Dr. Cameron on 10-19-2022 Lymphocytes Auto (Unsp spec) [#/Vol] 1.73 10*3/uL 0.83-4.51 [facility] Basophil percentageOrdered B y: Dr. Cameron on 10-19-2022 Basophils/100 WBC (Bld) 0.4 % 0-1 [facility] Eosinophils/100 WBC (Bld) 1.0 % 0-5 [facility] Neutrophils (Bld) [#/Vol] 10.3 10*3/uL 2.0-7.7 [facility] Neutrophils/100 WBC (Bld) 76.9 % 47-70 [facility] WBC (Bld) [#/Vol] 13.4 10*3/uL 4.4-11.0 [facility] Blood erythrocytes count (nu mber/volume)Ordered By: Dr. Cameron on 10-19-2022 RBC (Bld) [#/Vol] 3.92 10*6/uL 4.2-5.4 [facility] Blood hemoglobin measurement (mass/volume)Ordered By: Dr. Cameron on 10-19-2022 Hemoglobin (Bld) [Mass/Vol] 12.0 g/dL 12.0-15.0 [facility] Blood lymphocytes/100 leukoc ytesOrdered By: Dr. Cameron on 10-19-2022 Lymphocytes/100 WBC (Bld) 12.9 % 19-41 [facility] Blood monocytes/100 leukocyt esOrdered By: Dr. Cameron on 10-19-2022 Monocytes/100 WBC (Bld) 6.3 % 0-10 [facility] Blood platelet mean volumeOr dered By: Dr. Cameron on 10-19-2022 Platelet mean volume (Bld) [Entitic vol] 10.6 fL 6.2-12.0 [facility] Determination of erythrocyte mean corpuscular volume (MCV)Ordered By: Dr. Cameron on 10-19-2022 MCV (RBC) [Entitic vol] 91.1 fL 81-99 [facility] HIV 1 and HIV-2 antibody ass ay with HIV-1 p24 antigen detectionOrdered By: Dr. Cameron on 10-19-2022 HIV 1+2 Ab+HIV1 p24 Ag IA Ql Non-Reactive Nonreactive [facility] Hematocrit Auto (Bld) [Volum e fraction]Ordered By: Dr. Cameron on 10-19-2022 Hematocrit (Bld) [Volume fraction] 35.7 % 37-47 [facility] Laboratory - Chemistry and C hemistry - challengeon 10-19-2022 Glucose Ql (U) Negative [facility] Laboratory - Hematology and Cell countsOrdered By: Dr. Cameron on 10-19-2022 Erythrocyte distribution width (RBC) [Entitic vol] 42.9 fL 35.1-43.9 [facility] Erythrocyte distribution width (RBC) [Ratio] 13.1 % 11.6-14.6 [facility] Immature granulocytes/100 WBC (Bld) 2.500 % 0.0-0.9 [facility] Comment on above: IG% - Immature Granu locytes (promyelocytes, myelocytes and metamyelocytes) > 1% indicates that a LEFT SHIFT is Present. MCH (RBC) [Entitic mass] 30.6 pg 27.0-32.0 [facility] Nucleated RBC/100 WBC (Bld) [Ratio] 0 % 0-5 [facility] Laboratory - Urinalysison Protein Ql (U) Negative [facility] MCHC Auto (RBC) [Mass/Vol]Or dered By: Dr. Cameron on 10-19-2022 MCHC (RBC) [Mass/Vol] 33.6 g/dL 32-36 [facility] No Panel InformationOrdered By: Dr. Cameron on 10-19-2022 Hepatitis B Surface Antigen Non-Reactive Nonreactive [facility] Hepatitis C Antibody Non-Reactive Nonreactive [facility] Comment on above: Non Reactive: < 0.8 Equivocal: >/= 0.8 to < 1.0 Reactive: >/= 1.0The CDC recommends that a reactive/equivocal HCV antibody result be followed up by the HCV Nucleic Acid Amplificationtest (118384) Rubella IgG Antibody Reactive Nonreactive [facility] Comment on above: Antibody Results Int erpretation of Immune Status Non Reactive Presumed Non-Immune Equivocal Equivocal Reactive Presumed Immune Platelets bldOrdered By: Dr. Cameron on 10-19-2022 Platelets (Bld) [#/Vol] 269 10*3/uL 150-450 [facility] Serum Treponema species anti body detectionOrdered By: Dr. Cameron on 10-19-2022 Treponema sp Ab Ql (S) Non-Reactive [facility] Laboratory - Chemistry and C hemistry - challengeon 10-04-2022 Glucose Ql (U) Negative [facility] Laboratory - Urinalysison Protein Ql (U) Negative [facility] Laboratory - Chemistry and C hemistry - challengeon 09-22-2022 Glucose Ql (U) Negative [facility] Laboratory - Urinalysison Protein Ql (U) Negative [facility] Laboratory - Chemistry and C hemistry - challengeon 08-17-2022 Glucose Ql (U) Negative [facility] Laboratory - Urinalysison Protein Ql (U) Negative [facility] Laboratory - Chemistry and C hemistry - challengeon 07-20-2022 Glucose Ql (U) Negative [facility] Laboratory - Urinalysison Protein Ql (U) Negative [facility] Absolute lymphocyte countOrd ered By: Dr. Lundy on 07-13-2022 Lymphocytes Auto (Unsp spec) [#/Vol] 1.88 10*3/uL 0.83-4.51 [facility] Basophil percentageOrdered B y: Dr. Lundy on 07-13-2022 Basophil percentage 0-5 SEEN /hpf 0-5 [facility] Basophils/100 WBC (Bld) 0.2 % 0-1 [facility] Chloride [Moles/Vol] 106 mmol/L 98-107 [facility] Eosinophils/100 WBC (Bld) 1.4 % 0-5 [facility] Glucose [Mass/Vol] 77 mg/dL 74-106 [facility] Neutrophils (Bld) [#/Vol] 8.4 10*3/uL 2.0-7.7 [facility] Neutrophils/100 WBC (Bld) 76.2 % 47-70 [facility] Potassium [Moles/Vol] 3.4 mmol/L 3.5-5.1 [facility] Sodium [Moles/Vol] 137 mmol/L 136-145 [facility] WBC (Bld) [#/Vol] 11.1 10*3/uL 4.4-11.0 [facility] Bilirubin Test strip Ql (U)O rdered By: Dr. Lundy on 07-13-2022 Bilirubin Ql (U) Negative Negative [facility] Blood erythrocytes count (nu mber/volume)Ordered By: Dr. Lundy on 07-13-2022 RBC (Bld) [#/Vol] 4.16 10*6/uL 4.2-5.4 [facility] Blood hemoglobin measurement (mass/volume)Ordered By: Dr. Lundy on 07-13-2022 Hemoglobin (Bld) [Mass/Vol] 12.7 g/dL 12.0-15.0 [facility] Blood lymphocytes/100 leukoc ytesOrdered By: Dr. Lundy on 07-13-2022 Lymphocytes/100 WBC (Bld) 17.0 % 19-41 [facility] Blood monocytes/100 leukocyt esOrdered By: Dr. Lundy on 07-13-2022 Monocytes/100 WBC (Bld) 4.9 % 0-10 [facility] Blood platelet mean volumeOr dered By: Dr. Lundy on 07-13-2022 Platelet mean volume (Bld) [Entitic vol] 10.6 fL 6.2-12.0 [facility] Determination of erythrocyte mean corpuscular volume (MCV)Ordered By: Dr. Lundy on 07-13-2022 MCV (RBC) [Entitic vol] 90.9 fL 81-99 [facility] Hematocrit Auto (Bld) [Volum e fraction]Ordered By: Dr. Lundy on 07-13-2022 Hematocrit (Bld) [Volume fraction] 37.8 % 37-47 [facility] Ketones Test strip Ql (U)Ord ered By: Dr. Lundy on 07-13-2022 Ketones Ql (U) Negative Negative [facility] Laboratory - Chemistry and C hemistry - challengeOrdered By: Dr. Lundy on 07-13-2022 CO2 [Moles/Vol] 25.0 mmol/L 21.0-32.0 [facility] Urea nitrogen/Creatinine [Mass ratio] 9.6 mg/mg 10-20 [facility] Laboratory - Hematology and Cell countsOrdered By: Dr. Lundy on 07-13-2022 Erythrocyte distribution width (RBC) [Entitic vol] 40.8 fL 35.1-43.9 [facility] Erythrocyte distribution width (RBC) [Ratio] 12.5 % 11.6-14.6 [facility] Immature granulocytes/100 WBC (Bld) 0.300 % 0.0-0.9 [facility] Comment on above: IG% - Immature Granu locytes (promyelocytes, myelocytes and metamyelocytes) > 1% indicates that a LEFT SHIFT is Present. MCH (RBC) [Entitic mass] 30.5 pg 27.0-32.0 [facility] Nucleated RBC/100 WBC (Bld) [Ratio] 0 % 0-5 [facility] MCHC Auto (RBC) [Mass/Vol]Or dered By: Dr. Lundy on 07-13-2022 MCHC (RBC) [Mass/Vol] 33.6 g/dL 32-36 [facility] Mucus LM Ql (Urine sed)Order ed By: Dr. Lundy on 07-13-2022 Mucus Ql (Urine sed) 0 SEEN /hpf [facility] Nitrite Test strip Ql (U)Ord ered By: Dr. Lundy on 07-13-2022 Nitrite Ql (U) Negative Negative [facility] No Panel InformationOrdered By: Dr. Lundy on 07-13-2022 Estimated Creatinine Clearance Calc 124.03 ml/min [facility] Estimated GFR (MDRD) Amer 158 mL/min >60 [facility] Comment on above: GFR Calc Estimated GFR (MDRD) Non-Af Amer 130 mL/min >60 [facility] Comment on above: Non- GFR Calc Platelets bldOrdered By: Dr. Lundy on 07-13-2022 Platelets (Bld) [#/Vol] 290 10*3/uL 150-450 [facility] Protein Test strip Ql (U)Ord ered By: Dr. Lundy on 07-13-2022 Protein Ql (U) Negative Negative [facility] Serum or plasma calcium marian urement (mass/volume)Ordered By: Dr. Lundy on 07-13-2022 Calcium [Mass/Vol] 8.8 mg/dL 8.5-10.1 [facility] Serum or plasma choriogonado tropin detectionOrdered By: Dr. Lundy on 07-13-2022 HCG ( test) Ql [address] mIU/mL <4 [facility] Comment on above: hCG levels with Gest ational AgeGestational Age hCG mIU/mL (IU/L)0.2 - 1 week 5 - 501-2 weeks 50 - 5002-3 weeks 100 - 67186-5 weeks 500 - 382768-3 weeks 1000 - 374352-8 weeks 95780 - 100,0006-8 weeks 49223 - 200,0002-3 months 97694 - 100,000 Serum or plasma creatinine m easurement (mass/volume)Ordered By: Dr. Lundy on 07-13-2022 Creatinine [Mass/Vol] 0.63 mg/dL 0.55-1.02 [facility] Comment on above: The validity of the calculated GFR & GFRAA in patients over 70 years has not been determined. Clinical correlation is essential. Serum or plasma urea nitroge n measurement (mass/volume)Ordered By: Dr. Lundy on 07-13-2022 Urea nitrogen [Mass/Vol] 6 mg/dL 7-18 [facility] Squamous epithelial cells de tection in urine sediment by light microscopyOrdered By: Dr. Lundy on 07-13-2022 Epithelial cells.squamous LM Ql (Urine sed) 0-5 SEEN /hpf 5-10 [facility] Thin prep Papanicolaou smear with manual screeningOrdered By: Dr. Lundy on 07-13-2022 Thin prep Papanicolaou smear with manual screening 6 5-15 [facility] Urine blood detectionOrdered By: Dr. Lundy on 07-13-2022 RBC Ql (U) Negative Negative [facility] RBC Ql (U) 0 SEEN /hpf 0-5 [facility] Urine clarityOrdered By: Dr. Lundy on 07-13-2022 Clarity (U) Clear Clear [facility] Urine color determinationOrd ered By: Dr. Lundy on 07-13-2022 Color (U) Straw Yellow [facility] Urine glucose detectionOrder ed By: Dr. Lundy on 07-13-2022 Glucose Ql (U) Normal mg/dl Normal [facility] Urine leukocyte esterase det ection by dipstickOrdered By: Dr. Lundy on 07-13-2022 Leukocyte esterase Test strip Ql (U) 25 /ul Negative [facility] Urine pHOrdered By: Dr. William barron on 07-13-2022 pH (U) 7.0 [pH] 5.0 - 8.0 [facility] Urine sediment bacteria coun t by microscopy (number/high power field)Ordered By: Dr. Lundy on 07-13-2022 Bacteria LM.HPF (Urine sed) [#/Area] 0 /[HPF] None Seen [facility] Urine specific gravity measu rementOrdered By: Dr. Lundy on 07-13-2022 Specific gravity (U) [Rel density] 1.010 1.002-1.030 [facility] Urobilinogen Auto test strip Ql (U)Ordered By: Dr. Lundy on 07-13-2022 Urobilinogen Ql (U) Normal mg/dl Normal [facility] Culture, urineOrdered By: Dr Quynh Cameron on 05-15-2022 Bacteria identified Cx Nom (U) Positive [facility] Chlamydia trachomatis rRNA d etection by probe and target amplification methodOrdered By: Dr. Cameron on 05-13-2022 C. trachomatis rRNA REYNALDO+probe Ql (Unsp spec) Negative Negative [facility] Laboratory - Drug toxicology Ordered By: Dr. Cameron on 05-13-2022 Amphetamines Ql (U) Negative <1000 ng/mL [facility] Benzodiazepines Ql (U) Negative < 200 ng/mL [facility] Cannabinoids Screen Ql (U) Negative < 50 ng/mL [facility] Cocaine Ql (U) Negative < 300 ng/mL [facility] Opiates Ql (U) Negative < 300 ng/mL [facility] Laboratory - Microbiology an d Antimicrobial susceptibilityOrdered By: Dr. Cameron on 05-13-2022 N. gonorrhoeae DNA REYNALDO+probe Ql (Unsp spec) Negative Negative [facility] Comment on above: Performed at: =[address] [id number] Director: Ashley Barton MD, Phone: [phone] No Panel InformationOrdered By: Dr. Cameron on 05-13-2022 MDMA (Ecstasy) Screen Negative < 500 ng/mL [facility] Urine Barbiturates Screen Negative < 200 ng/mL [facility] Urine Drug Screen Comment [facility] Comment on above: CONFIRMATORY TESTING FOR ALL POSITIVE URINE DRUG SCREENRESULTS WILL ONLY BE SENT OUT UPON PHYSICIAN ORDER. VISTA Urine Drug Screen methods provide only preliminaryanalytical test results. A more specific alternate chemicalmethod must be used in order to obtain a confirmedanalytical result. Gas chromatography/mass spectrometery(GC/MS) is the preferred confirmatory method. Clinicalconsideration and professional judgement should be appliedto any drug of abuse test result, particularly whenpreliminary positive results are used. URINE TCA TESTING MUST BE ORDERED SEPARATELY. USE TESTMNEMONIC: [facility] Urine Methadone Screen Negative < 300 ng/mL [facility] Urine phencyclidine (PCP) de tectionOrdered By: Dr. Cameron on 05-13-2022 Phencyclidine Ql (U) Negative < 25 ng/mL [facility] Absolute lymphocyte countOrd ered By: ED PROVIDER on 04-29-2022 Lymphocytes Auto (Unsp spec) [#/Vol] 2.66 10*3/uL 0.83-4.51 [facility] Basophil percentageOrdered B y: ED PROVIDER on 04-29-2022 Basophils/100 WBC (Bld) 0.3 % 0-1 [facility] Chloride [Moles/Vol] 107 mmol/L 98-107 [facility] Eosinophils/100 WBC (Bld) 2.6 % 0-3 [facility] Glucose [Mass/Vol] 84 mg/dL 74-106 [facility] Neutrophils (Bld) [#/Vol] 5.9 10*3/uL 2.0-7.7 [facility] Neutrophils/100 WBC (Bld) 62.6 % 34-64 [facility] Potassium [Moles/Vol] 3.6 mmol/L 3.5-5.1 [facility] Sodium [Moles/Vol] 139 mmol/L 136-145 [facility] WBC (Bld) [#/Vol] 9.5 10*3/uL 4.5-13.0 [facility] Blood erythrocytes count (nu mber/volume)Ordered By: ED PROVIDER on 04-29-2022 RBC (Bld) [#/Vol] 4.70 10*6/uL 4.1-4.8 [facility] Blood hemoglobin measurement (mass/volume)Ordered By: ED PROVIDER on 04-29-2022 Hemoglobin (Bld) [Mass/Vol] 14.2 g/dL 12.0-15.0 [facility] Blood lymphocytes/100 leukoc ytesOrdered By: ED PROVIDER on 04-29-2022 Lymphocytes/100 WBC (Bld) 28.1 % 25-45 [facility] Blood monocytes/100 leukocyt esOrdered By: ED PROVIDER on 04-29-2022 Monocytes/100 WBC (Bld) 6.0 % 3-6 [facility] Blood platelet mean volumeOr dered By: ED PROVIDER on 04-29-2022 Platelet mean volume (Bld) [Entitic vol] 10.3 fL 6.2-12.0 [facility] Determination of erythrocyte mean corpuscular volume (MCV)Ordered By: ED PROVIDER on 04-29-2022 MCV (RBC) [Entitic vol] 90.9 fL 78-96 [facility] Hematocrit Auto (Bld) [Volum e fraction]Ordered By: ED PROVIDER on 04-29-2022 Hematocrit (Bld) [Volume fraction] 42.7 % 37-46 [facility] Laboratory - Chemistry and C hemistry - challengeOrdered By: ED PROVIDER on 04-29-2022 CO2 [Moles/Vol] 26.0 mmol/L 21.0-32.0 [facility] Urea nitrogen/Creatinine [Mass ratio] 8.5 mg/mg 10-20 [facility] Laboratory - Hematology and Cell countsOrdered By: ED PROVIDER on 04-29-2022 Erythrocyte distribution width (RBC) [Entitic vol] 41.7 fL 35.1-43.9 [facility] Erythrocyte distribution width (RBC) [Ratio] 12.6 % 11.6-14.6 [facility] Immature granulocytes/100 WBC (Bld) 0.400 % 0.0-0.9 [facility] Comment on above: IG% - Immature Granu locytes (promyelocytes, myelocytes and metamyelocytes) > 1% indicates that a LEFT SHIFT is Present. MCH (RBC) [Entitic mass] 30.2 pg 25.0-35.0 [facility] Nucleated RBC/100 WBC (Bld) [Ratio] 0 % 0-5 [facility] MCHC Auto (RBC) [Mass/Vol]Or dered By: ED PROVIDER on 04-29-2022 MCHC (RBC) [Mass/Vol] 33.3 g/dL 32-36 [facility] No Panel InformationOrdered By: ED PROVIDER on 04-29-2022 Estimated Creatinine Clearance Calc 117.28 ml/min [facility] Estimated GFR (MDRD) Amer 138 mL/min >60 [facility] Comment on above: GFR Calc Estimated GFR (MDRD) Non-Af Amer 114 mL/min >60 [facility] Comment on above: Non- GFR Calc Platelets bldOrdered By: ED PROVIDER on 04-29-2022 Platelets (Bld) [#/Vol] 359 10*3/uL 150-450 [facility] Serum or plasma calcium marian urement (mass/volume)Ordered By: ED PROVIDER on 04-29-2022 Calcium [Mass/Vol] 9.1 mg/dL 8.5-10.1 [facility] Serum or plasma choriogonado tropin detectionOrdered By: ED PROVIDER on 04-29-2022 HCG ( test) Ql 4556 mIU/mL <4 [facility] Comment on above: hCG levels with Gest ational AgeGestational Age hCG mIU/mL (IU/L)0.2 - 1 week 5 - 501-2 weeks 50 - 5002-3 weeks 100 - 64523-1 weeks 500 - 427243-0 weeks 1000 - 527214-6 weeks 39322 - 100,0006-8 weeks 51040 - 200,0002-3 months 90925 - 100,000 Serum or plasma creatinine m easurement (mass/volume)Ordered By: ED PROVIDER on 04-29-2022 Creatinine [Mass/Vol] 0.70 mg/dL 0.55-1.02 [facility] Comment on above: The validity of the calculated GFR & GFRAA in patients over 70 years has not been determined. Clinical correlation is essential. Serum or plasma urea nitroge n measurement (mass/volume)Ordered By: ED PROVIDER on 04-29-2022 Urea nitrogen [Mass/Vol] 6 mg/dL 7-18 [facility] Thin prep Papanicolaou smear with manual screeningOrdered By: ED PROVIDER on 04-29-2022 Thin prep Papanicolaou smear with manual screening 6 5-15 [facility] Culture, urine Bacteria identified Cx Nom (U) Positive [facility] Work Phone: Vital Signs Date Time Vital Sign Value Performing Clinician Mary mcgill 03-28-2025 10:39-0400 Body mass index (BMI) [Ratio] 27.45 kg/m2 Bharat Mosher MD Work Phone: [facility] 03-28-2025 10:39-0400 Body temperature 98.01 [degF] Bharat Mosher MD Work Phone: [facility] 03-28-2025 10:39-0400 Body weight 72.4 kg Bharat Mosher MD Work Phone: [facility] 03-28-2025 10:39-0400 Diastolic blood pressure 96 mm[Hg] Bharat Mosher MD Work Phone: [facility] 03-28-2025 10:39-0400 Heart rate 75 /min Bharat Mosher MD Work Phone: [facility] 03-28-2025 10:39-0400 Respiratory rate 18 /min Bharat Mosher MD Work Phone: [facility] 03-28-2025 10:39-0400 SaO2% (BldA) [Mass fraction] 99 % Bharat Mosher MD Work Phone: [facility] 03-28-2025 10:39-0400 Systolic blood pressure 122 mm[Hg] Bharat Mosher MD Work Phone: [facility] 03-22-2025 09:11-0400 Body height 162.4 cm Issac Fernández MD Work Phone: [facility] 03-22-2025 09:11-0400 Body mass index (BMI) [Ratio] 27 kg/m2 Issac Fernández MD Work Phone: [facility] 03-22-2025 09:11-0400 Body weight 71.22 kg Issac Fernández MD Work Phone: [facility] 03-22-2025 09:11-0400 Diastolic blood pressure 84 mm[Hg] Issac Fernández MD Work Phone: [facility] 03-22-2025 09:11-0400 Heart rate 84 /min Issac Fernández MD Work Phone: [facility] 03-22-2025 09:11-0400 SaO2% (BldA) [Mass fraction] 99 % Issac Fernández MD Work Phone: [facility] 03-22-2025 09:11-0400 Systolic blood pressure 116 mm[Hg] Issac Fernández MD Work Phone: [facility] 03-14-2025 08:11-0400 Body height 162.4 cm Citlali amanda PA-C Work Phone: [facility] 03-14-2025 08:11-0400 Body mass index (BMI) [Ratio] 27.73 kg/m2 Citlali Ceja PA-C Work Phone: [facility] 03-14-2025 08:11-0400 Body weight 73.15 kg Citlali Ceja PA-C Work Phone: [facility] 03-05-2025 10:48-0400 Body height 162.4 cm Veronica Podlogar CERTIFIED DIETARY MANAGER.[employer] Work Phone: [facility] 03-05-2025 10:48-0400 Body mass index (BMI) [Ratio] 28.21 kg/m2 Veronica Podlogar CERTIFIED DIETARY MANAGER.[employer] Work Phone: [facility] 03-05-2025 10:48-0400 Body weight 74.39 kg Veronica Podlogar CERTIFIED DIETARY MANAGER.[employer] Work Phone: [facility] 03-05-2025 10:48-0400 Diastolic blood pressure 74 mm[Hg] Veronica Podlogar CERTIFIED DIETARY MANAGER.[employer] Work Phone: [facility] 03-05-2025 10:48-0400 Heart rate 82 /min Veronica Podlogar CERTIFIED DIETARY MANAGER.[employer] Work Phone: [facility] 03-05-2025 10:48-0400 Respiratory rate 18 /min Veronica Podlogar CERTIFIED DIETARY MANAGER.[employer] Work Phone: [facility] 03-05-2025 10:48-0400 SaO2% (BldA) [Mass fraction] 98 % Veronica Podlogar CERTIFIED DIETARY MANAGER.[employer] Work Phone: [facility] 03-05-2025 10:48-0400 Systolic blood pressure 106 mm[Hg] Veronica Muse APRN.[employer] Work Phone: [facility] 03-03-2025 14:43-0400 Body mass index (BMI) [Ratio] 27.28 kg/m2 Rohan Villalba APRN.[employer] Work Phone: [facility] 03-03-2025 14:43-0400 Body temperature 97.59 [degF] Rohan Villalba APRN.[employer] Work Phone: [facility] 03-03-2025 14:43-0400 Body weight 74 kg Rohan Villalba APRN.[employer] Work Phone: [facility] 03-03-2025 14:43-0400 Diastolic blood pressure 78 mm[Hg] Rohan Villalba APRN.[employer] Work Phone: [facility] 03-03-2025 14:43-0400 Heart rate 76 /min Rohan Villalba APRN.[employer] Work Phone: [facility] 03-03-2025 14:43-0400 Respiratory rate 20 /min Rohan Villalba APRN.[employer] Work Phone: [facility] 03-03-2025 14:43-0400 SaO2% (BldA) [Mass fraction] 100 % Rohan Villalba APRN.[employer] Work Phone: [facility] 03-03-2025 14:43-0400 Systolic blood pressure 120 mm[Hg] Rohan Villalba APRN.[employer] Work Phone: [facility] 02-14-2025 16:14-0400 Body mass index (BMI) [Ratio] 27.87 kg/m2 Jamal Cortez APRN.[employer] Work Phone: [facility] 02-14-2025 16:14-0400 Body temperature 97.3 [degF] Jamal Cortez APRN.[employer] Work Phone: [facility] 02-14-2025 16:14-0400 Body weight 75.6 kg Jamal Cortez APRN.[employer] Work Phone: [facility] 02-14-2025 16:14-0400 Diastolic blood pressure 85 mm[Hg] Jamal Dana CERTIFIED DIETARY MANAGER.[employer] Work Phone: [facility] 02-14-2025 16:14-0400 Heart rate 87 /min Jamal Ambrociomakeda CERTIFIED DIETARY MANAGER.[employer] Work Phone: [facility] 02-14-2025 16:14-0400 Respiratory rate 18 /min Jamal Cortez CERTIFIED DIETARY MANAGER.[employer] Work Phone: [facility] 02-14-2025 16:14-0400 SaO2% (BldA) [Mass fraction] 98 % Jamal Ambrociomakeda CERTIFIED DIETARY MANAGER.[employer]LL [employer] Work Phone: [facility] 02-14-2025 16:14-0400 Systolic blood pressure 135 mm[Hg] Jamal Ambrociomakeda CERTIFIED DIETARY MANAGER.[employer] Work Phone: [facility] 02-10-2025 13:03-0400 Body mass index (BMI) [Ratio] 27.91 kg/m2 Sierrageoffrey Bangk CERTIFIED DIETARY MANAGER.[employer] Work Phone: [facility] 02-10-2025 13:03-0400 Body temperature 98.2 [degF] Sierrageoffrey Altamirano CERTIFIED DIETARY MANAGER.[employer] Work Phone: [facility] 02-10-2025 13:03-0400 Body weight 75.7 kg Sierra Altamirano CERTIFIED DIETARY MANAGER.[employer] Work Phone: [facility] 02-10-2025 13:03-0400 Diastolic blood pressure 87 mm[Hg] Sierra Altamirano CERTIFIED DIETARY MANAGER.[employer] Work Phone: [facility] 02-10-2025 13:03-0400 Heart rate 89 /min Sierra Altamirano CERTIFIED DIETARY MANAGER.[employer] Work Phone: [facility] 02-10-2025 13:03-0400 Respiratory rate 18 /min Sierra Altamirano CERTIFIED DIETARY MANAGER.[employer] Work Phone: [facility] 02-10-2025 13:03-0400 SaO2% (BldA) [Mass fraction] 99 % Sierra Altamirano APRN.MILL RECORDER Work Phone: [facility] 02-10-2025 13:03-0400 Systolic blood pressure 121 mm[Hg] Sierra Altamirano APRN.MILL [employer] Work Phone: [facility] 02-07-2025 10:20-0400 Body mass index (BMI) [Ratio] 28.39 kg/m2 Rohan Villalba APRN.[employer] Work Phone: [facility] 02-07-2025 10:20-0400 Body temperature 97.7 [degF] Rohan Villalba APRN.[employer] Work Phone: [facility] 02-07-2025 10:20-0400 Body weight 77 kg Rohan Villalba APRN.MI[employer] Work Phone: [facility] 02-07-2025 10:20-0400 Diastolic blood pressure 83 mm[Hg] Rohan Villalba APRN.MILL [employer]ORDER Work Phone: [facility] 02-07-2025 10:20-0400 Heart rate 81 /min Rohan Villalba APRN.MI[employer] Work Phone: [facility] 02-07-2025 10:20-0400 Respiratory rate 18 /min Rohan Villalba APRN.MI[employer] Work Phone: [facility] 02-07-2025 10:20-0400 SaO2% (BldA) [Mass fraction] 100 % Rohan Villalba APRN.MILL [employer]ORDER Work Phone: [facility] 02-07-2025 10:20-0400 Systolic blood pressure 126 mm[Hg] Rohan Villalba APRN.MI[employer]ORDER Work Phone: [facility] 01-25-2025 10:32-0400 Diastolic blood pressure 86 mm[Hg] Issac Fernández MD Work Phone: [facility] 01-25-2025 10:32-0400 Systolic blood pressure 120 mm[Hg] Issac Fernández MD Work Phone: [facility] 01-25-2025 10:01-0400 Body height 164.7 cm Issac Fernández MD Work Phone: [facility] 01-25-2025 10:01-0400 Body mass index (BMI) [Ratio] 28.33 kg/m2 Issac Fernández MD Work Phone: [facility] 01-25-2025 10:01-0400 Body weight 76.84 kg Issac Fernández MD Work Phone: [facility] 01-25-2025 10:01-0400 Heart rate 72 /min Issac Fernández MD Work Phone: [facility] 01-25-2025 10:01-0400 SaO2% (BldA) [Mass fraction] 98 % Issac Fernández MD Work Phone: [facility] 12-27-2024 12:00-0400 Body height 164.7 cm Issac Fernández MD Work Phone: [facility] 12-27-2024 12:00-0400 Body mass index (BMI) [Ratio] 28.76 kg/m2 Issac Fernández MD Work Phone: [facility] 12-27-2024 12:00-0400 Body weight 78 kg Issac Fernández MD Work Phone: [facility] 12-27-2024 12:00-0400 Diastolic blood pressure 84 mm[Hg] Issac Fernández MD Work Phone: [facility] 12-27-2024 12:00-0400 Heart rate 80 /min Issac Fernández MD Work Phone: [facility] 12-27-2024 12:00-0400 SaO2% (BldA) [Mass fraction] 98 % Issac Fernández MD Work Phone: [facility] 12-27-2024 12:00-0400 Systolic blood pressure 104 mm[Hg] Issac Fernández MD Work Phone: [facility] 11-30-2024 10:06-0400 Body mass index (BMI) [Ratio] 28.83 kg/m2 Veronica Podlogar CERTIFIED DIETARY MANAGER.[employer] Work Phone: [facility] 11-30-2024 10:06-0400 Body weight 78.2 kg Veronica Podlogar CERTIFIED DIETARY MANAGER.[employer] Work Phone: [facility] 11-30-2024 10:06-0400 Diastolic blood pressure 86 mm[Hg] Veronica Podlogar CERTIFIED DIETARY MANAGER.MI[employer] Work Phone: [facility] 11-30-2024 10:06-0400 Heart rate 66 /min Veronica Podlogar CERTIFIED DIETARY MANAGER.MI[employer] Work Phone: [facility] 11-30-2024 10:06-0400 Respiratory rate 16 /min Veronica Podlogar CERTIFIED DIETARY MANAGER.MILL [employer]ORDER Work Phone: [facility] 11-30-2024 10:06-0400 SaO2% (BldA) [Mass fraction] 98 % Veronica Podlogar CERTIFIED DIETARY MANAGER.MILL [employer]ORDER Work Phone: [facility] 11-30-2024 10:06-0400 Systolic blood pressure 108 mm[Hg] Veronica Podlogar CERTIFIED DIETARY MANAGER.MILL [employer] Work Phone: [facility] 11-06-2024 09:02-0400 Body mass index (BMI) [Ratio] 29.2 kg/m2 Jamal Dana CERTIFIED DIETARY MANAGER.[employer]ORDER Work Phone: [facility] 11-06-2024 09:02-0400 Body temperature 98.1 [degF] Jamal Muñozmakeda CERTIFIED DIETARY MANAGER.[employer] Work Phone: [facility] 11-06-2024 09:02-0400 Body weight 79.2 kg Jamal Cortez CERTIFIED DIETARY MANAGER.[employer] Work Phone: [facility] 11-06-2024 09:02-0400 Diastolic blood pressure 76 mm[Hg] Jamal Cortez CERTIFIED DIETARY MANAGER.MI[employer]ORDER Work Phone: [facility] 11-06-2024 09:02-0400 Heart rate 72 /min Jamal Cortez CERTIFIED DIETARY MANAGER.MI[employer]ORDER Work Phone: [facility] 11-06-2024 09:02-0400 Respiratory rate 16 /min Jamal Cortez CERTIFIED DIETARY MANAGER.MILL RECORDER Work Phone: [facility] 11-06-2024 09:02-0400 SaO2% (BldA) [Mass fraction] 97 % Jamal Cortez CERTIFIED DIETARY MANAGER.MILL RECORDER Work Phone: [facility] 11-06-2024 09:02-0400 Systolic blood pressure 120 mm[Hg] Jamal Cortez CERTIFIED DIETARY MANAGER.MILL [employer]ORDER Work Phone: [facility] 09-12-2024 16:21-0500 Body mass index (BMI) [Ratio] 30.82 kg/m2 Bharat Mosher MD Work Phone: [facility] 09-12-2024 16:21-0500 Body temperature 98.4 [degF] Bharat Mosher MD Work Phone: [facility] 09-12-2024 16:21-0500 Body weight 83.6 kg Bharat Mosher MD Work Phone: [facility] 09-12-2024 16:21-0500 Diastolic blood pressure 70 mm[Hg] Bharat Mosher MD Work Phone: [facility] 09-12-2024 16:21-0500 Heart rate 86 /min Bharat Mosher MD Work Phone: [facility] 09-12-2024 16:21-0500 Respiratory rate 16 /min Bharat Mosher MD Work Phone: [facility] 09-12-2024 16:21-0500 SaO2% (BldA) [Mass fraction] 99 % Bharat Mosher MD Work Phone: [facility] 09-12-2024 16:21-0500 Systolic blood pressure 120 mm[Hg] Bharat Mosher MD Work Phone: [facility] 05-14-2024 11:12-0400 Body mass index (BMI) [Ratio] 30.89 kg/m2 Santos Soler CERTIFIED DIETARY MANAGER.[employer] Work Phone: [facility] 05-14-2024 11:12-0400 Body temperature 97.9 [degF] Santos Soler CERTIFIED DIETARY MANAGER.MILL RECORDER Work Phone: [facility] 05-14-2024 11:12-0400 Body weight 83.8 kg Santos Soler CERTIFIED DIETARY MANAGER.MILL [employer]ORDER Work Phone: [facility] 05-14-2024 11:12-0400 Diastolic blood pressure 78 mm[Hg] Santos Soler CERTIFIED DIETARY MANAGER.MILL RECORDER Work Phone: [facility] 05-14-2024 11:12-0400 Heart rate 97 /min Santos Soler CERTIFIED DIETARY MANAGER.MILL RECORDER Work Phone: [facility] 05-14-2024 11:12-0400 Respiratory rate 18 /min Santos Soler CERTIFIED DIETARY MANAGER.MILL RECORDER Work Phone: [facility] 05-14-2024 11:12-0400 SaO2% (BldA) [Mass fraction] 99 % Santos Soler CERTIFIED DIETARY MANAGER.MILL RECORDER Work Phone: [facility] 05-14-2024 11:12-0400 Systolic blood pressure 110 mm[Hg] Santos Soler CERTIFIED DIETARY MANAGER.MILL [employer]ORDER Work Phone: [facility] 03-21-2024 09:30-0400 Body height 164.7 cm Veronica Podlogar CERTIFIED DIETARY MANAGER.MI[employer]ORDER Work Phone: [facility] 03-21-2024 09:30-0400 Body mass index (BMI) [Ratio] 32.94 kg/m2 Veronica Podlogar CERTIFIED DIETARY MANAGER.MILL [employer] Work Phone: [facility] 03-21-2024 09:30-0400 Body weight 89.36 kg Veronica Podlogar CERTIFIED DIETARY MANAGER.MILL [employer]ORDER Work Phone: [facility] 03-21-2024 09:30-0400 Diastolic blood pressure 82 mm[Hg] Veronica Podlogar CERTIFIED DIETARY MANAGER.MILL RECORDER Work Phone: [facility] 03-21-2024 09:30-0400 Heart rate 89 /min Veronica Podlogar CERTIFIED DIETARY MANAGER.MILL [employer]ORDER Work Phone: [facility] 03-21-2024 09:30-0400 Respiratory rate 18 /min Veronica Guerralogceline CERTIFIED DIETARY MANAGER.MILL [employer]ORDER Work Phone: [facility] 03-21-2024 09:30-0400 SaO2% (BldA) [Mass fraction] 98 % Veronica Guerralogceline CERTIFIED DIETARY MANAGER.MILL RECORDER Work Phone: [facility] 03-21-2024 09:30-0400 Systolic blood pressure 122 mm[Hg] Veronica Guerralogar CERTIFIED DIETARY MANAGER.MILL [employer]ORDER Work Phone: [facility] 01-27-2024 17:41-0400 Body temperature 97.9 [degF] Marychuy Calvin CERTIFIED DIETARY MANAGER.MILL [employer]ORDER Work Phone: [facility] 01-27-2024 17:41-0400 Body weight 104 kg Marychuy Calvin CERTIFIED DIETARY MANAGER.MILL RECORDER Work Phone: [facility] 01-27-2024 17:41-0400 Diastolic blood pressure 72 mm[Hg] Marychuy Calvin CERTIFIED DIETARY MANAGER.MILL RECORDER Work Phone: [facility] 01-27-2024 17:41-0400 Heart rate 113 /min Marychuy Calvin CERTIFIED DIETARY MANAGER.MILL RECORDER Work Phone: [facility] 01-27-2024 17:41-0400 Respiratory rate 18 /min Marychuy Calvin CERTIFIED DIETARY MANAGER.MILL RECORDER Work Phone: [facility] 01-27-2024 17:41-0400 SaO2% (BldA) [Mass fraction] 98 % Marychuy Calvin CERTIFIED DIETARY MANAGER.MILL RECORDER Work Phone: [facility] 01-27-2024 17:41-0400 Systolic blood pressure 152 mm[Hg] Marychuy Calvin CERTIFIED DIETARY MANAGER.MILL RECORDER Work Phone: [facility] 01-21-2024 09:00-0400 Body temperature 98.71 [degF] Bharat Mosher MD Work Phone: [facility] 01-21-2024 09:00-0400 Body weight 103.9 kg Bharat Mosher MD Work Phone: [facility] 01-21-2024 09:00-0400 Diastolic blood pressure 92 mm[Hg] Bharat Mosher MD Work Phone: [facility] 01-21-2024 09:00-0400 Heart rate 79 /min Bharat Mosher MD Work Phone: [facility] 01-21-2024 09:00-0400 Respiratory rate 18 /min Bharat Mosher MD Work Phone: [facility] 01-21-2024 09:00-0400 SaO2% (BldA) [Mass fraction] 97 % Bharat Mosher MD Work Phone: [facility] 01-21-2024 09:00-0400 Systolic blood pressure 139 mm[Hg] Bharat Mosher MD Work Phone: [facility] 07-08-2023 08:25-0500 Body height 162.56 cm No Primary Care Physician [facility] 07-08-2023 08:24-0500 Body mass index (BMI) [Ratio] 33.2 kg/m2 No Primary Care Physician [facility] 07-08-2023 08:24-0500 Body weight 87.71 kg No Primary Care Physician [facility] 07-08-2023 08:24-0500 Diastolic blood pressure 79 mm[Hg] No Primary Care Physician [facility] 07-08-2023 08:24-0500 Systolic blood pressure 122 mm[Hg] No Primary Care Physician [facility] 05-25-2023 10:28-0500 Body temperature 98.01 [degF] Becca Athy PA-C Work Phone: [facility] 05-25-2023 10:28-0500 Body weight 89.9 kg Becca Athy PA-C Work Phone: [facility] 05-25-2023 10:28-0500 Diastolic blood pressure 72 mm[Hg] Becca Athy PA-C Work Phone: [facility] 05-25-2023 10:28-0500 Heart rate 90 /min Becca Athy PA-C Work Phone: [facility] 05-25-2023 10:28-0500 Respiratory rate 18 /min Becca Stearns PA-C Work Phone: [facility] 05-25-2023 10:28-0500 SaO2% (BldA) [Mass fraction] 98 % Becca Stearns PA-C Work Phone: [facility] 05-25-2023 10:28-0500 Systolic blood pressure 110 mm[Hg] Becca Stearns PA-C Work Phone: [facility] 04-01-2023 15:21-0400 Body mass index (BMI) [Percentile] Per age and sex 96.2 % No Primary Care Physician [facility] 04-01-2023 15:21-0400 Body mass index (BMI) [Ratio] 33.2 kg/m2 No Primary Care Physician [facility] 04-01-2023 15:21-0400 Body weight 87.71 kg No Primary Care Physician [facility] 04-01-2023 15:21-0400 Diastolic blood pressure 77 mm[Hg] No Primary Care Physician [facility] 04-01-2023 15:21-0400 Systolic blood pressure 112 mm[Hg] No Primary Care Physician [facility] 01-04-2023 15:32-0400 Body height 162.56 cm No Primary Care Physician [facility] 01-04-2023 15:32-0400 Body mass index (BMI) [Percentile] Per age and sex 97 % No Primary Care Physician [facility] 01-04-2023 15:32-0400 Body mass index (BMI) [Ratio] 34.5 kg/m2 No Primary Care Physician [facility] 01-04-2023 15:32-0400 Body weight 91.39 kg No Primary Care Physician [facility] 01-04-2023 15:32-0400 Diastolic blood pressure 80 mm[Hg] No Primary Care Physician [facility] 01-04-2023 15:32-0400 Systolic blood pressure 122 mm[Hg] No Primary Care Physician [facility] 12-17-2022 08:45-0400 Heart rate 86 /min No Primary Care Physician [facility] 12-17-2022 08:45-0400 SaO2% (BldA) [Mass fraction] 98 % No Primary Care Physician [facility] 12-17-2022 08:44-0400 Body temperature 97.2 [degF] No Primary Care Physician [facility] 12-17-2022 08:44-0400 Diastolic blood pressure 59 mm[Hg] No Primary Care Physician [facility] 12-17-2022 08:44-0400 Systolic blood pressure 107 mm[Hg] No Primary Care Physician [facility] 12-17-2022 08:43-0400 Respiratory rate 16 /min No Primary Care Physician [facility] 12-15-2022 23:37-0400 Diastolic blood pressure 51 mm[Hg] No Primary Care Physician [facility] 12-15-2022 23:37-0400 Heart rate 80 /min No Primary Care Physician [facility] 12-15-2022 23:37-0400 Systolic blood pressure 93 mm[Hg] No Primary Care Physician [facility] 12-15-2022 23:36-0400 Body temperature 97.9 [degF] No Primary Care Physician [facility] 12-15-2022 23:30-0400 Respiratory rate 15 /min No Primary Care Physician [facility] 12-15-2022 23:30-0400 SaO2% (BldA) [Mass fraction] 100 % No Primary Care Physician [facility] 12-13-2022 19:15-0400 Body weight 105.9 kg No Primary Care Physician [facility] 12-10-2022 15:10-0400 Body height 162.56 cm No Primary Care Physician [facility] 12-10-2022 15:09-0400 Body mass index (BMI) [Percentile] Per age and sex 98.4 % No Primary Care Physician [facility] 12-10-2022 15:09-0400 Body mass index (BMI) [Ratio] 39.9 kg/m2 No Primary Care Physician [facility] 12-10-2022 15:09-0400 Body weight 105.34 kg No Primary Care Physician [facility] 12-10-2022 15:09-0400 Diastolic blood pressure 81 mm[Hg] No Primary Care Physician [facility] 12-10-2022 15:09-0400 Systolic blood pressure 122 mm[Hg] No Primary Care Physician [facility] 12-08-2022 11:37-0400 Body weight 105.68 kg No Primary Care Physician [facility] 12-07-2022 09:05-0400 Diastolic blood pressure 72 mm[Hg] No Primary Care Physician [facility] 12-07-2022 09:05-0400 Systolic blood pressure 109 mm[Hg] No Primary Care Physician [facility] 12-07-2022 08:25-0400 Body mass index (BMI) [Percentile] Per age and sex 98.4 % No Primary Care Physician [facility] 12-07-2022 08:25-0400 Body mass index (BMI) [Ratio] 39.9 kg/m2 No Primary Care Physician [facility] 12-07-2022 08:25-0400 Body weight 105.68 kg No Primary Care Physician [facility] 12-02-2022 08:30-0400 Body mass index (BMI) [Percentile] Per age and sex 98.4 % No Primary Care Physician [facility] 12-02-2022 08:30-0400 Body mass index (BMI) [Ratio] 39.4 kg/m2 No Primary Care Physician [facility] 12-02-2022 08:30-0400 Body weight 104.32 kg No Primary Care Physician [facility] 12-02-2022 08:30-0400 Diastolic blood pressure 74 mm[Hg] No Primary Care Physician [facility] 12-02-2022 08:30-0400 Systolic blood pressure 120 mm[Hg] No Primary Care Physician [facility] 12-01-2022 13:12-0400 Diastolic blood pressure 78 mm[Hg] No Primary Care Physician [facility] 12-01-2022 13:12-0400 Systolic blood pressure 120 mm[Hg] No Primary Care Physician [facility] 11-29-2022 15:26-0400 Body mass index (BMI) [Percentile] Per age and sex 98.5 % No Primary Care Physician [facility] 11-29-2022 15:26-0400 Body mass index (BMI) [Ratio] 39.9 kg/m2 No Primary Care Physician [facility] 11-29-2022 15:26-0400 Body weight 105.34 kg No Primary Care Physician [facility] 11-29-2022 15:26-0400 Diastolic blood pressure 79 mm[Hg] No Primary Care Physician [facility] 11-29-2022 15:26-0400 Systolic blood pressure 120 mm[Hg] No Primary Care Physician [facility] 11-26-2022 09:43-0400 Body mass index (BMI) [Percentile] Per age and sex 98.4 % No Primary Care Physician [facility] 11-26-2022 09:43-0400 Body mass index (BMI) [Ratio] 39.3 kg/m2 No Primary Care Physician [facility] 11-26-2022 09:43-0400 Body weight 104.04 kg No Primary Care Physician [facility] 11-23-2022 08:30-0400 Body mass index (BMI) [Percentile] Per age and sex 98.4 % No Primary Care Physician [facility] 11-23-2022 08:30-0400 Body mass index (BMI) [Ratio] 39.8 kg/m2 No Primary Care Physician [facility] 11-23-2022 08:30-0400 Body weight 105.29 kg No Primary Care Physician [facility] 11-19-2022 15:01-0400 Body mass index (BMI) [Percentile] Per age and sex 98.4 % No Primary Care Physician [facility] 11-19-2022 15:01-0400 Body mass index (BMI) [Ratio] 39.5 kg/m2 No Primary Care Physician [facility] 11-19-2022 15:01-0400 Body weight 104.55 kg No Primary Care Physician [facility] 11-19-2022 15:01-0400 Diastolic blood pressure 80 mm[Hg] No Primary Care Physician [facility] 11-19-2022 15:01-0400 Systolic blood pressure 117 mm[Hg] No Primary Care Physician [facility] 11-16-2022 10:54-0400 Body mass index (BMI) [Percentile] Per age and sex 98.4 % No Primary Care Physician [facility] 11-16-2022 10:54-0400 Body mass index (BMI) [Ratio] 39.5 kg/m2 No Primary Care Physician [facility] 11-16-2022 10:54-0400 Body temperature 98.4 [degF] No Primary Care Physician [facility] 11-16-2022 10:54-0400 Body weight 104.43 kg No Primary Care Physician [facility] 11-16-2022 10:54-0400 Diastolic blood pressure 78 mm[Hg] No Primary Care Physician [facility] 11-16-2022 10:54-0400 Heart rate 107 /min No Primary Care Physician [facility] 11-16-2022 10:54-0400 Respiratory rate 16 /min No Primary Care Physician [facility] 11-16-2022 10:54-0400 SaO2% (BldA) [Mass fraction] 95 % No Primary Care Physician [facility] 11-16-2022 10:54-0400 Systolic blood pressure 109 mm[Hg] No Primary Care Physician [facility] 11-16-2022 08:54-0400 Diastolic blood pressure 69 mm[Hg] No Primary Care Physician [facility] 11-16-2022 08:54-0400 Systolic blood pressure 101 mm[Hg] No Primary Care Physician [facility] 11-16-2022 08:35-0400 Body mass index (BMI) [Percentile] Per age and sex 98.4 % No Primary Care Physician [facility] 11-16-2022 08:35-0400 Body mass index (BMI) [Ratio] 39.3 kg/m2 No Primary Care Physician [facility] 11-16-2022 08:35-0400 Body weight 104.04 kg No Primary Care Physician [facility] 11-11-2022 09:53-0400 Body mass index (BMI) [Percentile] Per age and sex 98.4 % No Primary Care Physician [facility] 11-11-2022 09:53-0400 Body mass index (BMI) [Ratio] 39.8 kg/m2 No Primary Care Physician [facility] 11-11-2022 09:53-0400 Body weight 105.23 kg No Primary Care Physician [facility] 11-11-2022 09:53-0400 Diastolic blood pressure 82 mm[Hg] No Primary Care Physician [facility] 11-11-2022 09:53-0400 Systolic blood pressure 121 mm[Hg] No Primary Care Physician [facility] 11-10-2022 17:56-0400 Heart rate 89 /min No Primary Care Physician [facility] 11-10-2022 17:56-0400 SaO2% (BldA) [Mass fraction] 99 % No Primary Care Physician [facility] 11-10-2022 17:55-0400 Diastolic blood pressure 69 mm[Hg] No Primary Care Physician [facility] 11-10-2022 17:55-0400 Systolic blood pressure 117 mm[Hg] No Primary Care Physician [facility] 11-10-2022 16:24-0400 Body mass index (BMI) [Percentile] Per age and sex 98.4 % No Primary Care Physician [facility] 11-10-2022 16:24-0400 Body mass index (BMI) [Ratio] 39.8 kg/m2 No Primary Care Physician [facility] 11-10-2022 16:24-0400 Body weight 105.3 kg No Primary Care Physician [facility] 11-10-2022 16:15-0400 Body temperature 98.2 [degF] No Primary Care Physician [facility] 11-03-2022 15:52-0400 Body height 162.[address] Dennis Recinos Work Phone: [facility] 11-03-2022 15:51-0400 Body mass index (BMI) [Percentile] Per age and sex 98.4 % Dr. Dennis Recinos Work Phone: [facility] 11-03-2022 15:51-0400 Body mass index (BMI) [Ratio] 39.2 kg/m2 Dr. Dennis Recinos Work Phone: [facility] 11-03-2022 15:51-0400 Body weight 103.[address] Dennis Recinos Work Phone: [facility] 11-03-2022 15:51-0400 Diastolic blood pressure 89 mm[Hg] Dr. Dennis Recinos Work Phone: [facility] 11-03-2022 15:51-0400 Systolic blood pressure 126 mm[Hg] Dr. Dennis Recinos Work Phone: [facility] 10-19-2022 15:08-0400 Body height 162.[address] Dennis Recinos Work Phone: [facility] 10-19-2022 15:03-0400 Body mass index (BMI) [Percentile] Per age and sex 98.3 % Dr. Dennis Recinos Work Phone: [facility] 10-19-2022 15:03-0400 Body mass index (BMI) [Ratio] 38.6 kg/m2 Dr. Dennis Recinos Work Phone: [facility] 10-19-2022 15:03-0400 Body weight 102.[address] Dennis Recinos Work Phone: [facility] 10-19-2022 15:03-0400 Diastolic blood pressure 72 mm[Hg] Dr. Dennis Recinos Work Phone: [facility] 10-19-2022 15:03-0400 Systolic blood pressure 112 mm[Hg] Dr. Dennis Recinos Work Phone: [facility] 10-08-2022 14:39-0400 Body mass index (BMI) [Percentile] Per age and sex 98.1 % Dr. Dennis Recinos Work Phone: [facility] 10-08-2022 14:39-0400 Body mass index (BMI) [Ratio] 37.9 kg/m2 Dr. Dennis Recinos Work Phone: [facility] 10-08-2022 14:39-0400 Body weight 100.[address] Dennis Recinos Work Phone: [facility] 10-08-2022 14:39-0400 Diastolic blood pressure 69 mm[Hg] Dr. Dennis Recinos Work Phone: [facility] 10-08-2022 14:39-0400 Heart rate 104 /min Dr. Dennis Recinos Work Phone: [facility] 10-08-2022 14:39-0400 Respiratory rate 18 /min Dr. Dennis Recinos Work Phone: [facility] 10-08-2022 14:39-0400 Systolic blood pressure 112 mm[Hg] Dr. Dennis Recinos Work Phone: [facility] 10-04-2022 16:32-0400 Body weight 99.[address] Dennis Recinos Work Phone: [facility] 10-04-2022 16:32-0400 Diastolic blood pressure 74 mm[Hg] Dr. Dennis Recinos Work Phone: [facility] 10-04-2022 16:32-0400 Systolic blood pressure 114 mm[Hg] Dr. Dennis Recinos Work Phone: [facility] 09-22-2022 09:50-0500 Body height 162.[address] Dennis Recinos Work Phone: [facility] 09-22-2022 09:50-0500 Body mass index (BMI) [Percentile] Per age and sex 97.8 % Dr. Dennis Recinos Work Phone: [facility] 09-22-2022 09:50-0500 Body mass index (BMI) [Ratio] 36.4 kg/m2 Dr. Dennis Recinos Work Phone: [facility] 09-22-2022 09:50-0500 Body weight 96.[address] Dennis Recinos Work Phone: [facility] 09-22-2022 09:50-0500 Diastolic blood pressure 72 mm[Hg] Dr. Dennis Recinos Work Phone: [facility] 09-22-2022 09:50-0500 Systolic blood pressure 118 mm[Hg] Dr. Dennis Recinos Work Phone: [facility] 08-17-2022 13:26-0500 Body height 162.[address] Dennis Recinos Work Phone: [facility] 08-17-2022 13:26-0500 Body mass index (BMI) [Percentile] Per age and sex 96.8 % Dr. Dennis Recinos Work Phone: [facility] 08-17-2022 13:26-0500 Body mass index (BMI) [Ratio] 33.7 kg/m2 Dr. Dennis Recinos Work Phone: [facility] 08-17-2022 13:26-0500 Body weight 89.[address] Dennis Recinos Work Phone: [facility] 08-17-2022 13:26-0500 Diastolic blood pressure 80 mm[Hg] Dr. Dennis Recinos Work Phone: [facility] 08-17-2022 13:26-0500 Systolic blood pressure 124 mm[Hg] Dr. Dennis Recinos Work Phone: [facility] 07-20-2022 10:43-0500 Body mass index (BMI) [Percentile] Per age and sex 95.6 % Dr. Dennis Recinos Work Phone: [facility] 07-20-2022 10:43-0500 Body mass index (BMI) [Ratio] 31.8 kg/m2 Dr. Dennis Recinos Work Phone: [facility] 07-20-2022 10:43-0500 Body weight 84.[address] Dennis Recinos Work Phone: [facility] 07-20-2022 10:43-0500 Diastolic blood pressure 82 mm[Hg] Dr. Dennis Recinos Work Phone: [facility] 07-20-2022 10:43-0500 Systolic blood pressure 124 mm[Hg] Dr. Dennis Recinos Work Phone: [facility] 07-14-2022 00:03-0500 Respiratory rate 18 /min Dr. Dennis Recinos Work Phone: [facility] 07-13-2022 20:47-0500 Body height 162.[address] Dennis Recinos Work Phone: [facility] Work Phone: 07-13-2022 20:47-0500 Body mass index (BMI) [Percentile] Per age and sex 95.5 % Dr. Dennis Recinos Work Phone: [facility] 07-13-2022 20:47-0500 Body mass index (BMI) [Ratio] 31.6 kg/m2 Dr. Dennis Recinos Work Phone: [facility] 07-13-2022 20:47-0500 Body temperature 97.8 [degF] Dr. Dennis Recinos Work Phone: 5(886)[phone] [place] [address] 07-13-2022 20:47-0500 Body weight 83.[address] Dennis Recinos Work Phone: 2(599)[phone] [place] [address] 07-13-2022 20:47-0500 Diastolic blood pressure 85 mm[Hg] Dr. Dennis Recinos Work Phone: 4(930)[phone] [place] [address] 07-13-2022 20:47-0500 Heart rate 112 /min Dr. Dennis Recinos Work Phone: 2(472)[phone] [place] [address] 07-13-2022 20:47-0500 SaO2% (BldA) [Mass fraction] 98 % Dr. Dennis Recinos Work Phone: [facility] 07-13-2022 20:47-0500 Systolic blood pressure 138 mm[Hg] Dr. Dennis Recinos Work Phone: [facility] 06-14-2022 14:20-0500 Body mass index (BMI) [Percentile] Per age and sex 94 % Dr. Dennis Recinos Work Phone: [facility] 06-14-2022 14:20-0500 Body mass index (BMI) [Ratio] 30.1 kg/m2 Dr. Dennis Recinos Work Phone: [facility] 06-14-2022 14:20-0500 Body weight 82.[address] Dennis Recinos Work Phone: [facility] 06-14-2022 14:20-0500 Diastolic blood pressure 77 mm[Hg] Dr. Dennis Recinos Work Phone: [facility] 06-14-2022 14:20-0500 Systolic blood pressure 121 mm[Hg] Dr. Dennis Recinos Work Phone: [facility] 05-13-2022 13:14-0400 Body height 165.[address] Dennis Recinos Work Phone: [facility] Work Phone: 05-13-2022 13:12-0400 Body mass index (BMI) [Percentile] Per age and sex 94.9 % Dr. Dennis Recinos Work Phone: [facility] 05-13-2022 13:12-0400 Body mass index (BMI) [Ratio] 30.8 kg/m2 Dr. Dennis Recinos Work Phone: [facility] 05-13-2022 13:12-0400 Body weight 84.[address] Dennis Recinos Work Phone: [facility] 05-13-2022 13:12-0400 Diastolic blood pressure 67 mm[Hg] Dr. Dennis Recinos Work Phone: [facility] 05-13-2022 13:12-0400 Systolic blood pressure 108 mm[Hg] Dr. Dennis Recinos Work Phone: [facility] 04-29-2022 17:28-0400 Body height 165.1 cm [facility] Work Phone: 04-29-2022 17:28-0400 Body mass index (BMI) [Percentile] Per age and sex 94.5 % [facility] 04-29-2022 17:28-0400 Body mass index (BMI) [Ratio] 30.4 kg/m2 [facility] 04-29-2022 17:28-0400 Body temperature 98.2 [degF] [facility] 04-29-2022 17:28-0400 Body weight 82.9 kg [facility] 04-29-2022 17:28-0400 Diastolic blood pressure 89 mm[Hg] [facility] 04-29-2022 17:28-0400 Heart rate 87 /min [facility] 04-29-2022 17:28-0400 Respiratory rate 16 /min [facility] 04-29-2022 17:28-0400 SaO2% (BldA) [Mass fraction] 98 % [facility] 04-29-2022 17:28-0400 Systolic blood pressure 137 mm[Hg] [facility] 11-05-2021 12:07-0400 Body temperature 98.1 [degF] Becca Athy PA-C Work Phone: [facility] 11-05-2021 12:07-0400 Body weight 77.66 kg Becca Athy PA-C Work Phone: [facility] 11-05-2021 12:07-0400 Diastolic blood pressure 72 mm[Hg] Becca Athy PA-C Work Phone: [facility] 11-05-2021 12:07-0400 Heart rate 66 /min Becca Athy PA-C Work Phone: [facility] 11-05-2021 12:07-0400 Respiratory rate 16 /min Becca Athy PA-C Work Phone: [facility] 11-05-2021 12:07-0400 SaO2% (BldA) [Mass fraction] 100 % Becca Athy PA-C Work Phone: [facility] 11-05-2021 12:07-0400 Systolic blood pressure 124 mm[Hg] Becca Athy PA-C Work Phone: [facility] Encounters Encounter Date Encounter Type Care Provider Facility Start: 04-03-2025 End: 04-03-2025 ambulatory Veronica Muse [place] [place]: 04-03-2025 ambulatory Lu Mcclain Facility :[facility] Start: 04-02-2025 End: 04-02-2025 Patient encounter procedure Maxine Ellis APRN.CNP Work Phone: Psychiatry Comment on above: NO SHOW (Primary Dx) Start: 03-29-2025 End: 04-02-2025 Follow-up encounter Citlali RODRIGUEZ-C Work Phone: Neurology Start: 03-28-2025 End: 03-28-2025 ambulatory ISSAC FERNÁNDEZ Facility:[facility] Start: 03-28-2025 ambulatory Veronica Muse [employer] Facil ity:[facility] Start: 03-28-2025 End: 03-28-2025 Emergency department patient visit Veronica Muse NP Facility:[facility] Start: 03-28-2025 End: 03-28-2025 Patient encounter procedure Bharat Mosher MD Work Phone: [facility] Comment on above: Dizziness (Primary D x); SOB (shortness of breath); Nasal congestion; Right leg pain Start: 03-28-2025 End: 03-28-2025 ambulatory ISSAC FERNÁNDEZ Facility:[facility] Start: 03-27-2025 End: 03-27-2025 Telephone encounter Toshia Hess [facility] Work Phone: Psychology Comment on above: bh consult Start: 03-22-2025 End: 03-22-2025 Patient encounter procedure Issac Fernández MD Work Phone: [facility] [place] Comment on above: Asymptomatic varicos e veins of right lower extremity (Primary Dx); Hypotension, unspecified hypotension type Start: 03-22-2025 End: 03-22-2025 ambulatory ISSAC FERNÁNDEZ Facility:[facility] Start: 03-21-2025 End: 03-21-2025 ambulatory Nurse Intm/Famp Triage [facility] Work Phone: Nurse Phone Triage Comment on above: right knee lump; rig ht leg and right arm tingling Start: 03-21-2025 End: 03-21-2025 [facility] Maxine Ellis CERTIFIED DIETARY MANAGER.MILL RECORDER Work Phone: Psychiatry Comment on above: Mixed obsessional th oughts and acts (Primary Dx); Moderate episode of recurrent major depressive disorder (HCC); Encounter for long-term (current) use of medications; anxiety (HCC) Start: 03-21-2025 End: 03-21-2025 ambulatory MAXINE ELLIS Facility:[facility] Start: 03-20-2025 End: 03-20-2025 ambulatory VERONICA PODLOGAR Facility:[facility] Start: 03-19-2025 End: 03-19-2025 ambulatory ISSAC FERNÁNDEZ Facility:[facility] Start: 03-16-2025 End: 03-19-2025 Telephone encounter Issac Fernández MD Work Phone: [facility] [place] Comment on above: Patient Update Start: 03-14-2025 End: 03-14-2025 ambulatory ISSAC FERNÁNDEZ Facility:[facility] Start: 03-14-2025 End: 03-14-2025 Patient encounter procedure Citlali Ceja PA-C Work Phone: Neurology Comment on above: Intractable migraine with aura without status migrainosus (Primary Dx); Positional lightheadedness Start: 03-08-2025 End: 03-11-2025 Telephone encounter Issac Fernández MD Work Phone: [facility] [place] Comment on above: Patient Update Patient Question Start: 03-05-2025 End: 03-05-2025 ambulatory VERONICA PODLOGAR Facility:[facility] Start: 03-05-2025 End: 03-05-2025 Patient encounter procedure Veronica Muse APRN.MILL RECORDER Work Phone: [facility] [place] Comment on above: Annual physical exam (Primary Dx); Screening-pulmonary TB; Gastroesophageal reflux disease, unspecified whether esophagitis present; Migraine without aura, not intractable, without status migrainosus; Anxiety disorder, unspecified type Refill Request Start: 03-03-2025 End: 03-03-2025 ambulatory ISSAC FERNÁNDEZ Facility:[facility] Start: 03-03-2025 End: 03-03-2025 Patient encounter procedure Rohan Villalba APRN.MILL RECORDER Work Phone: [facility] [place] Comment on above: Sore throat (Primary Dx) Start: 02-22-2025 End: 03-04-2025 Telephone encounter Citlali Ceja PA-C Work Phone: Neurology Comment on above: Appointment Start: 02-22-2025 ambulatory ISSAC FERNÁNDEZ Facility:[facility] Start: 02-18-2025 End: 02-18-2025 ambulatory VERONICA GUERRALOGCELINE Facility:[facility] Start: 02-18-2025 End: 02-18-2025 Telephone encounter Issac Fernández MD Work Phone: [facility] [place] Comment on above: Billing Codes for La b Work Start: 02-15-2025 End: 02-18-2025 ambulatory Veronica Podlogar CERTIFIED DIETARY MANAGER.MILL RECORDER Work Phone: [facility] [place] Comment on above: Blood work thyroid Start: 02-14-2025 End: 02-14-2025 Office outpatient visit 15 minutes Jamal Cortez CERTIFIED DIETARY MANAGER.MILL RECORDER Work Phone: [facility] [place] Comment on above: Pharyngitis, unspeci fied etiology (Primary Dx); Viral illness Start: 02-14-2025 End: 02-14-2025 ambulatory ISSAC FERNÁNDEZ Facility:[facility] Start: 02-14-2025 End: 02-14-2025 Telephone encounter Issac Fernández MD Work Phone: [facility] [place] Comment on above: Patient Update Start: 02-10-2025 End: 02-10-2025 Patient encounter procedure Sierra Altamirano CERTIFIED DIETARY MANAGER.MILL RECORDER Work Phone: [facility] [place] Comment on above: Strep pharyngitis (P rimary Dx); Sore throat Start: 02-10-2025 End: 02-10-2025 ambulatory ISSAC FERNÁNDEZ Facility:[facility] Start: 02-08-2025 End: 02-08-2025 Emergency department patient visit [address] [facility] Facility:[facility] Start: 02-07-2025 End: 02-07-2025 Patient encounter procedure Rohan Villalba CERTIFIED DIETARY MANAGER.MILL RECORDER Work Phone: [facility] [place] Comment on above: Impacted cerumen of right ear (Primary Dx); Rhinosinusitis Start: 02-07-2025 End: 02-07-2025 ambulatory ISSAC FERNÁNDEZ Facility:[facility] Start: 02-05-2025 End: 02-07-2025 ambulatory Issac Fernández MD Work Phone: [facility] [place] Comment on above: Blood work Start: 01-31-2025 End: 01-31-2025 Follow-up encounter Issac Fernández MD Work Phone: [facility] [place] Start: 01-31-2025 ambulatory ISSAC FERNÁNDEZ Facility:[facility] Start: 01-31-2025 End: 01-31-2025 Subsequent hospital visit by physician [facility] (I-Stat/1.5t) Work Phone: Radiology Comment on above: Migraine without sta tus migrainosus, not intractable, unspecified migraine type [G43.909] Start: 01-25-2025 End: 01-25-2025 Patient encounter procedure Issac Fernández MD Work Phone: Family [facility] [place] Comment on above: Migraine without sta tus migrainosus, not intractable, unspecified migraine type (Primary Dx); Unsteadiness on feet; Numbness and tingling; Demyelinating disease of central nervous system (HCC); Blurred vision; Dizziness and giddiness Start: 01-25-2025 End: 01-25-2025 ambulatory ISSAC FERNÁNDEZ Facility:[facility] Start: 01-20-2025 End: 01-21-2025 ambulatory Issac Fernández MD Work Phone: Family [facility] [place] Comment on above: Symptoms Start: 01-11-2025 End: 01-11-2025 Telephone encounter Issac Fernández MD Work Phone: [facility] [place] Comment on above: Patient Question Start: 12-31-2024 End: 12-31-2024 Follow-up encounter Issac Fernández MD Work Phone: [facility] [place] Start: 12-28-2024 End: 12-28-2024 ambulatory ISSAC FERNÁNDEZ Facility:[facility] Start: 12-27-2024 End: 12-27-2024 Patient encounter procedure Issac Fernández MD Work Phone: Family [facility] Comment on above: Migraine with aura, intractable, without status migrainosus (Primary Dx); Palpitations; Tachycardia; Encounter for test, result unknown Start: 12-27-2024 End: 12-27-2024 ambulatory ISSAC FERNÁNDEZ Facility:[facility] Start: 12-26-2024 End: 12-26-2024 ambulatory Issac Fernández MD Work Phone: Family [facility] Comment on above: Headache Start: 11-30-2024 End: 11-30-2024 Patient encounter procedure Veronica Guerralogceline CERTIFIED DIETARY MANAGER.MILL RECORDER Work Phone: Family [facility] Comment on above: Migraine with aura, intractable, without status migrainosus; Mother currently breast-feeding (HCC) Start: 11-30-2024 End: 11-30-2024 ambulatory VERONICA PODLOGCELINE Facility:[facility] Start: 11-22-2024 End: 11-22-2024 ambulatory Maxine Ellis APRN.MILL RECORDER Work Phone: Psychiatry Comment on above: NO SHOW (Primary Dx) Start: 11-22-2024 End: 11-22-2024 Telemedicine consultation with patient Maxine Ellis APRN.MILL RECORDER Work Phone: Psychiatry Start: 11-16-2024 ambulatory Veronica Guerralogar SANDING MACHINE BUFFER Facil ity:[facility] Start: 11-09-2024 End: 11-09-2024 ambulatory Lu [place] [facility] Start: 11-09-2024 End: 11-09-2024 ambulatory [facility] Facility:[facility] Start: 11-07-2024 End: 01-07-2025 Follow-up encounter Garcia Be APRN.MILL RECORDER Work Phone: [facility] Start: 11-06-2024 End: 11-06-2024 ambulatory JAMAL CORTEZ Facility:[facility] Start: 11-06-2024 End: 11-06-2024 Office outpatient visit 15 minutes Jamal Cortez CERTIFIED DIETARY MANAGER.MILL RECORDER Work Phone: [facility] Comment on above: Urinary frequency (P rimary Dx); Low back pain with sciatica, sciatica laterality unspecified, unspecified back pain laterality, unspecified chronicity Start: 11-01-2024 End: 11-01-2024 Nursing evaluation of patient and report Mi Nurse Work Phone: [facility] [place] Comment on above: Encounter for immuni zation (Primary Dx) Start: 11-01-2024 End: 11-01-2024 ambulatory ISSAC FERNÁNDEZ Facility:[facility] Start: 10-29-2024 End: 10-30-2024 Telephone encounter Maxine Ellis APRN.MILL RECORDER Work Phone: Psychiatry Start: 10-23-2024 End: 10-24-2024 Telephone encounter Issac Fernández MD Work Phone: [facility] [place] Comment on above: Patient Question Start: 10-18-2024 End: 10-18-2024 ambulatory MAXINE ELLIS Facility:[facility] Start: 10-18-2024 End: 10-18-2024 [facility] Maxine Ellis APRN.MILL RECORDER Work Phone: Psychiatry Comment on above: MARK (generalized anx iety disorder) (Primary Dx); Moderate episode of recurrent major depressive disorder (HCC); Social anxiety disorder; Encounter for long-term (current) use of medications; Psychosocial stressors Start: 10-09-2024 End: 10-09-2024 ambulatory TRISHA TAN PA-C Facility:[facility] Start: 10-08-2024 End: 10-08-2024 ambulatory TRISHA TAN PA-C Facility:[facility] Start: 09-13-2024 End: 11-13-2024 Follow-up encounter Nilesh RODRIGUEZ Work Phone: [facility] Start: 09-12-2024 End: 09-12-2024 Office outpatient visit 15 minutes Bharat Mosher MD Work Phone: [facility] Comment on above: URI, acute (Primary Dx) Start: 09-12-2024 End: 09-12-2024 ambulatory ISSAC FERNÁNDEZ Facility:[facility] Start: 08-14-2024 End: 08-14-2024 ambulatory ISSAC FERNÁNDEZ Facility:[facility] Start: 08-14-2024 End: 08-14-2024 [facility] Maxine Ellis APRN.MILL RECORDER Work Phone: Psychiatry Comment on above: anxiety ( Primary Dx); Moderate episode of recurrent major depressive disorder (HCC); MARK (generalized anxiety disorder); Social anxiety disorder; Encounter for long-term (current) use of medications Start: 07-26-2024 End: 07-26-2024 Telephone encounter Maxine Ellis APRN.CNP Work Phone: Psychiatry Comment on above: Appointment Start: 06-28-2024 End: 06-28-2024 ambulatory Maxine Ellis APRN.CNP Work Phone: Psychiatry Comment on above: NO SHOW (Primary Dx) Start: 06-28-2024 End: 06-28-2024 Telemedicine consultation with patient Maxine Ellis APRN.CNP Work Phone: Psychiatry Start: 06-07-2024 ambulatory Lanie Antuenz SANDING MACHINE BUFFER Faci lity:[facility] Start: 06-05-2024 End: 06-05-2024 Telephone encounter Issac Fernández MD Work Phone: [facility] [place] Comment on above: Breast Problem Start: 05-17-2024 End: 05-17-2024 [facility] Maxine Ellis APRN.MILL RECORDER Work Phone: Psychiatry Comment on above: MARK (generalized anx iety disorder) (Primary Dx); anxiety; Social anxiety disorder; Moderate episode of recurrent major depressive disorder (HCC) Start: 05-14-2024 End: 05-14-2024 Subsequent hospital visit by physician Xr [facility] [place] Work Phone: Radiology Comment on above: Acute cough [R05.1] Start: 05-14-2024 End: 05-14-2024 ambulatory ISSAC FERNÁNDEZ Facility:[facility] Start: 05-14-2024 End: 05-14-2024 Patient encounter procedure Santos Soler APRN.MILL RECORDER Work Phone: [facility] Comment on above: Sinobronchitis (Prim ambika Dx); Acute cough Start: 05-03-2024 End: 05-03-2024 ambulatory Lanie Antunez NP [place] Start: 04-16-2024 ambulatory Lu Mcclain Facility :[facility] Start: 04-13-2024 End: 04-13-2024 [facility] Toshia Hess [facility] Work Phone: Psychology Comment on above: Major depressive dis order, recurrent episode, moderate (HCC) (Primary Dx); Generalized anxiety disorder Start: 03-21-2024 End: 03-21-2024 Telephone encounter Toshia Hess [facility] Work Phone: Psychology Comment on above: bh consult Start: 03-21-2024 End: 03-21-2024 Patient encounter procedure Veronica Muse APRN.MILL RECORDER Work Phone: [facility] Comment on above: Encounter for medica l examination to establish care (Primary Dx); Bipolar II disorder (HCC); Urinary frequency; Anxiety and depression Start: 03-21-2024 End: 03-21-2024 Patient encounter status Veronica Muse APRN.MILL RECORDER Work Phone: [facility] Work Phone: Start: 01-27-2024 End: 01-27-2024 Patient encounter procedure Marychuy Calvin APRN.MILL RECORDER Work Phone: [facility] Comment on above: Sore throat (Primary Dx) Start: 01-21-2024 End: 01-21-2024 Office outpatient visit 25 minutes Bharat Mosher MD Work Phone: [facility] Comment on above: Acute conjunctivitis of both eyes, unspecified acute conjunctivitis type (Primary Dx); Hordeolum externum right upper eyelid Start: 09-22-2023 End: 09-22-2023 ambulatory MD NO PRIMARY CARE [facility] Start: 07-08-2023 End: 07-08-2023 ambulatory No Primary Care Physician [facility] Work Phone: Start: 07-08-2023 End: 07-08-2023 Patient encounter procedure No Primary Care Physician [facility] Specimen Work Phone: Start: 07-08-2023 End: 07-08-2023 Patient encounter procedure No Primary Care Physician [facility] Work Phone: Start: 05-25-2023 End: 05-25-2023 Patient encounter procedure Becca Stearns PA-C Work Phone: [facility] Comment on above: Bacterial sinusitis (Primary Dx) Start: 04-01-2023 End: 04-01-2023 Patient encounter procedure No Primary Care Physician [facility] Work Phone: Start: 01-04-2023 End: 01-04-2023 ambulatory No Primary Care Physician [facility] Work Phone: Start: 01-04-2023 End: 01-04-2023 Patient encounter procedure No Primary Care Physician [facility] Start: 01-04-2023 End: 01-04-2023 Patient encounter procedure No Primary Care Physician [facility] Start: 12-19-2022 End: 12-19-2022 Patient encounter procedure No Primary Care Physician [facility] Start: 12-17-2022 Non-patient / Non-visit No Catherine neil Care Physician [facility] Start: 12-16-2022 Non-patient / Non-visit No Catherine trejo Care Physician [facility] Start: 12-15-2022 Non-patient / Non-visit No Catherine neil Care Physician [facility] Start: 12-14-2022 Non-patient / Non-visit No Catherine neil Care Physician [facility] Start: 12-13-2022 Non-patient / Non-visit No Cahterine neil Care Physician [facility] Start: 12-13-2022 End: 12-17-2022 Evaluation and management of inpatient No Primary Care Phys[facility] Start: 12-10-2022 End: 12-10-2022 Patient encounter procedure No Primary Care Physician [facility] Start: 12-08-2022 End: 12-15-2022 ambulatory No Primary Care Physician [facility] Work Phone: Start: 12-08-2022 End: 12-15-2022 Discharged Recurring No Primary Care Physician [facility] Start: 12-07-2022 End: 12-07-2022 Patient encounter procedure No Primary Care Physician [facility] Start: 12-02-2022 End: 12-02-2022 Patient encounter procedure No Primary Care Physician [facility] Start: 11-29-2022 End: 11-29-2022 Patient encounter procedure No Primary Care Physician [facility] Specimen Start: 11-29-2022 End: 11-29-2022 Patient encounter procedure No Primary Care Physician [facility] Start: 11-26-2022 End: 11-26-2022 Patient encounter procedure No Primary Care Physician [facility] Start: 11-26-2022 End: 11-26-2022 Patient encounter procedure No Primary Care Physician [facility] Start: 11-23-2022 End: 11-23-2022 Patient encounter procedure No Primary Care Physician [facility] Start: 11-19-2022 End: 11-19-2022 Patient encounter procedure No Primary Care Physician [facility] Start: 11-16-2022 End: 11-16-2022 Patient encounter procedure No Primary Care Physician [facility] Endocrinology Start: 11-16-2022 End: 11-16-2022 Patient encounter procedure No Primary Care Physician [facility] Start: 11-13-2022 Non-patient / Non-visit No Catherine neil Care Physician [facility] Start: 11-11-2022 End: 11-11-2022 Patient encounter procedure No Primary Care Physician [facility] Start: 11-10-2022 End: 11-10-2022 Patient encounter procedure No Primary Care Physician [facility] Start: 11-03-2022 End: 11-03-[address] Dennis Recinos Work Phone: [facility] Start: 11-02-2022 End: 11-02-[address] Dennis Recinos Work Phone: [facility] Work Phone: Start: 11-02-2022 End: 11-02-[address] Dennis Recinos Work Phone: [facility] Start: 10-19-2022 End: 10-19-[address] Dennis Recinos Work Phone: [facility] Work Phone: Start: 10-19-2022 End: 10-19-[address] Dennis Recinos Work Phone: [facility] Start: 10-11-2022 End: 10-11-[address] Dennis Recinos Work Phone: [facility]/Neurology Start: 10-08-2022 End: 10-08-[address] Dennis Recinos Work Phone: [facility] Start: 10-08-2022 Non-patient / Non-visit Dr. Mynor Recinos Work Phone: [facility] Start: 10-04-2022 End: 10-04-[address] Dennis Recinos Work Phone: [facility] Start: 09-23-2022 End: 09-23-2022 Non-patient / Non-visit Dr. Dennis Recinos Work Phone: [facility] Start: 09-23-2022 End: 09-23-[address] Dennis Recinos Work Phone: [facility] Work Phone: Start: 09-23-2022 End: 09-23-[address] Dennis Recinos Work Phone: [facility]Ne[facility] Start: 09-22-2022 End: 09-22-[address] Dennis Recinos Work Phone: [facility] Start: 08-17-2022 End: 08-17-[address] Dennis Recinos Work Phone: [facility] Start: 08-10-2022 End: 08-10-[address] Dennis Recinos Work Phone: [facility] Work Phone: Start: 08-10-2022 End: 08-10-[address] Dennis Recinos Work Phone: [facility] Ul[facility] Start: 07-20-2022 End: 07-20-[address] Dennis Recinos Work Phone: [facility] Start: 07-13-2022 End: 07-14-2022 Emergency department patient visit Dr. Dennis Recinos Work Phone: [facility] Start: 06-14-2022 End: 06-14-[address] Dennis Recinos Work Phone: [facility] Start: 05-13-2022 End: 05-13-[address] Dennis Recinos Work Phone: [facility] Work Phone: Start: 05-13-2022 End: 05-13-[address] Dennis Recinos Work Phone: [facility], Specimen Start: 05-13-2022 End: 05-13-[address] Dennis Recinos Work Phone: [facility] Start: 04-29-2022 End: 04-29-2022 Emergency department patient visit [facility] Start: 11-17-2021 Telephone encounter Rohan Villalba APRN.MILL RECORDER Work Phone: [facility] Comment on above: Results Start: 11-05-2021 End: 11-05-2021 Patient encounter procedure Becca Stearns PA-C Work Phone: [facility] Comment on above: Swelling of left higuera d (Primary Dx) Procedures Date Procedure Procedure Detail Performing Clinician Start: 03-03-2025 Iadna streptococcus group a amplified probe tq Rohan Villalba CERTIFIED DIETARY MANAGER.MILL RECORDER Work Phone: Start: 02-10-2025 Iadna streptococcus group a amplified probe tq Sierra Altamirano CERTIFIED DIETARY MANAGER.MILL RECORDER Work Phone: Start: 01-31-2025 Mri brain brain stem w/o contrast material Issac Fernández MD Work Phone: Start: 12-27-2024 UA DIP,URINE HCG (POC) Issac Fernández MD Work Phone: Start: 12-27-2024 Ecg routine ecg w/le ast 12 lds i&r only Issac Fernández MD Work Phone: Start: 11-06-2024 BACTERIAL VAGINOSIS NAAT Jamal Cortez CERTIFIED DIETARY MANAGER.MILL RECORDER Work Phone: Start: 11-06-2024 Culture bacterial quanttative colony count urine Jamal Cortez CERTIFIED DIETARY MANAGER.MILL RECORDER Work Phone: Start: 11-06-2024 UA DIP,URINE HCG (POC) [facility] Provider Start: 11-06-2024 Urnls dip stick/tabl et rgnt auto w/o microscopy Trisha Tovar CERTIFIED DIETARY MANAGER.MILL RECORDER Work Phone: Start: 05-14-2024 Radiologic exam ches t 2 views Santos Soler CERTIFIED DIETARY MANAGER.MILL RECORDER Work Phone: Start: 03-21-2024 Urnls dip stick/tabl et rgnt auto w/o microscopy Veronica Muse APRN.MILL RECORDER Work Phone: Start: 01-27-2024 STREP A MOLECULAR (POC) Marychuy Calvin APRN.MILL RECORDER Work Phone: Start: 07-08-2023 Urine culture No Primar y Care Physician Start: 11-26-2022 Ultrasound scan for growth No Primary Care Physician Start: 08-10-2022 End: 08-10-[address] Dennis Recinos Work Phone: Start: 07-13-2022 Ultrasound scan for growth Dr. Dennis Recinos Work Phone: Start: 08-27-2021 Adult depression scr eening assessment Becca Stearns PA-C Work Phone: Cytopathology proced ure, preparation of smear, genital source No Primary Care Physician Group B Streptococcu s Culture No Primary Care Physician Investigation of transfusion reaction No Primary Care Physician Urine culture Dr. Dennis french Work Phone: Urine culture Dr. Dennis french Work Phone: Urine culture No Primary Car e Physician Plan of Treatment Date Care Activity Detail Author Start: 2078 RSV Vaccine (1 - 1-dose 75+ series) RSV Vaccine (1 - 1-dose 75+ series) [facility] Start: 11-03-2032 Urine microalbumin profile DTaP,Tdap,Td Vaccine (8 - Td or Tdap) [facility] Start: 03-22-2026 Annual PCP Team Chronic Disease Visit Annual PCP Team Chronic Disease Visit [facility] Start: 03-05-2026 Annual PCP Team Chronic Disease Visit Annual PCP Team Chronic Disease Visit [facility] Start: 02-05-2026 Urine microalbumin profile DTAP,TDAP,TD (7 - Td or Tdap) [facility] Start: 01-25-2026 Annual PCP Team Chronic Disease Visit Annual PCP Team Chronic Disease Visit [facility] Start: 12-27-2025 Annual PCP Team Chronic Disease Visit Annual PCP Team Chronic Disease Visit [facility] Start: 11-30-2025 Annual PCP Team Chronic Disease Visit Annual PCP Team Chronic Disease Visit [facility] Start: 05-02-2025 End: 05-02-2025 Nursing evaluation of patient and report 05/02/2025 9:15 AM EDT Nurse Visit [facility] [place] [address] [facility] [place] [id number] Nurse, [place] [address] [facility] [place], [place] [id number] [facility]: [facility] #3 Start: 04-29-2025 End: 04-29-2025 Patient encounter procedure 04/29/2025 11:00 AM EDT Office Visit [facility] [address] [facility] [place] [id number] Issac Fernández MD [address] [facility] [place], [place] [id number] 3 month follow up [facility] Comment on above: 3 month follow up Start: 04-22-2025 Hepb vaccine adult 3 dose schedule for im use HEP B VACCINE, 3-DOSE, AGE 20+ YR (ENGERIX-B, RECOMBIVAX HB) Immunization/Injection Routine Need for vaccination Expected: 04/22/2025 (Approximate) [facility] Comment on above: Expected: 04/22/2025 (Approximate) Start: 04-19-2025 End: 04-19-2025 Patient encounter procedure 04/19/2025 1:30 PM EDT Appointment [facility] Card[facility] [address] [place] [address] Positional lightheadedness [R42] [facility] Comment on above: Positional lightheadedness [R42] Start: 04-19-2025 End: 04-19-2025 Patient encounter procedure 04/19/2025 10:55 AM EDT Office Visit Otolaryngology [address] [place] [address] Efrain Keenan PA-C [address] [place] [address] Sore throat [J02.9] Otolaryngology Comment on above: Sore throat [J02.9] Start: 04-19-2025 End: 04-19-2025 ambulatory 04/19/2025 8:00 AM EDT [facility] Psychiatry [address] [place] [address] Maxine Ellis, CERTIFIED DIETARY MANAGER.MILL RECORDER [address] [place] [address] Psychiatry Start: 04-02-2025 End: 04-02-2025 Patient encounter procedure 04/02/2025 8:00 AM EDT Office Visit Psychiatry [address] [place] [address] Maxine Ellis, CERTIFIED DIETARY MANAGER.MILL RECORDER [address] [place] [address] med check Psychiatry Comment on above: med check Start: 03-22-2025 End: 03-22-2025 Patient encounter procedure Cardiology Comment on above: Palpitations [R00.2] soft lump to right k nee area Start: 03-21-2025 Annual PCP Team Chronic Disease Visit Annual PCP Team Chronic Disease Visit [facility] Start: 03-21-2025 End: 03-21-2025 ambulatory 03/21/2025 11:00 AM EDT [facility] Psychiatry [address] [place] [address] Maxine Ellis, CERTIFIED DIETARY MANAGER.MILL RECORDER [address] [place] [address] side effects to medication Psychiatry Comment on above: side effects to medication Start: 03-18-2025 Influenza vaccination [facility] Start: 03-14-2025 End: 03-14-2025 Patient encounter procedure 03/14/2025 8:00 AM EDT Office Visit Neurology [address] [place] [address] [place] [id number] Citlali Ceja PA-C [address] [place] [address] Migraine without status migrainosus, not intractable, unspecified migraine type ... Neurology Comment on above: Migraine without status migrainosus, not intractable, unspecified migraine type ... Start: 03-11-2025 End: 06-10-2025 Hemoglobin A1c in Blood HEMOGLOBIN A1C Lab Routine Hx of gestational diabetes mellitus, not currently Expected: 03/11/2025, Expires: 06/10/2025 [facility] Work Phone: Comment on above: Expected: 03/11/2025, Expires: Start: 03-05-2025 End: 06-04-2025 BLOOD TB SCREEN BLOOD TB SCREEN Lab Routine Screening-pulmonary TB Expected: 03/05/2025, Expires: 06/04/2025 [facility] Work Phone: Comment on above: Expected: 03/05/2025, Expires: Start: 03-05-2025 End: 03-05-2025 Patient encounter procedure 03/05/2025 11:00 AM EDT Office Visit Family [facility] [place] [address] [place] [address] PodVeronica dotson APRN.MILL RECORDER [address] [place], [place] [id number] physical-needs paperwork filled out for [facility] [place] Comment on above: physical-needs paperwork filled out for [facility] Start: 02-22-2025 End: 02-22-2025 Patient encounter procedure 02/22/2025 1:00 PM EDT Office Visit Neurology [address] [place] [address] [place] [id number] Citlali Ceja PA-C [address] [place], [place] [address] Migraine without status migrainosus. Neurology Comment on above: Migraine without status migrainosus. Start: 02-18-2025 End: 05-20-2025 THYROID PEROXIDASE ANTIBODY [facility] Comment on above: Expected: 02/18/2025, Expires: Start: 02-18-2025 End: 05-20-2025 Thyroxine (T4) free [Mass/volume] in Serum or Plasma [facility] Comment on above: Expected: 02/18/2025, Expires: Start: 02-18-2025 End: 05-20-2025 Triiodothyronine (T3) [Mass/volume] in Serum or Plasma [facility] Work Phone: Comment on above: Expected: 02/18/2025, Expires: Start: 02-14-2025 End: 05-16-2025 Comprehensive metabolic 2000 panel - Serum or Plasma [facility] Work Phone: Comment on above: Expected: 02/14/2025, Expires: Start: 02-13-2025 End: 02-13-2025 Patient encounter procedure 02/13/2025 7:30 AM EDT Office Visit Neurology [address] [place] [address] Citlali Ceja PA-C [address] [place], [place] [phone] Dx: Migraine without status migrainosus, not intractable, unspecified migraine type [G43.909]; Unsteadiness on feet [R26.81]; Numbness and tingling [R20.0, R20.2]; Demyelinating disease of central nervous system (HCC) [G37.9] Neurology Comment on above: Dx: Migraine without status migrainosus, not intractable, unspecified migraine type [G43.909]; Unsteadiness on feet [R26.81]; Numbness and tingling [R20.0, R20.2]; Demyelinating disease of central nervous system (HCC) [G37.9] Start: 01-31-2025 End: 01-31-2025 Patient encounter procedure 01/31/2025 8:00 AM EDT Appointment Radiology [address] [place], [place] [id number] Dx: Migraine without status migrainosus, not intractable, unspecified migraine type [G43.909]; Unsteadiness on feet [R26.81]; Numbness and tingling [R20.0, R20.2]; Demyelinating disease of central nervous system (HCC) [G37.9] Radiology Comment on above: Dx: Migraine without status migrainosus, not intractable, unspecified migraine type [G43.909]; Unsteadiness on feet [R26.81]; Numbness and tingling [R20.0, R20.2]; Demyelinating disease of central nervous system (HCC) [G37.9] Start: 01-28-2025 End: 01-28-2025 Patient encounter procedure 01/28/2025 2:40 PM EDT Office Visit Cardiology [address] [place] [address] Dx: Palpitations [R00.2]; Tachycardia [R00.0] Cardiology Comment on above: Dx: Palpitations [R00.2]; Tachycardia [R 00.0] Start: 01-25-2025 End: 01-25-2025 Patient encounter procedure 01/25/2025 10:00 AM EDT Office Visit [facility] Medicine [place] [address] [place] [address] Issac Fernández MD [address] [place] [address] Follow up palpitations and new symptoms [facility] Comment on above: Follow up palpitations and new symptoms Start: 01-11-2025 End: 01-11-2025 Patient encounter procedure 01/11/2025 3:30 PM EDT Office Visit Cardiology [address] [place], [place] [id number] Dx: Palpitations [R00.2]; Tachycardia [R00.0] Cardiology Comment on above: Dx: Palpitations [R00.2]; Tachycardia [R 00.0] Start: 12-27-2024 End: 03-28-2025 CBC W Auto Differential panel - Blood COMPLETE BLOOD COUNT AND DIFFERENTIAL Lab Routine Palpitations Tachycardia Expected: 12/27/2024, Expires: 03/28/2025 [facility] Work Phone: Comment on above: Expected: 12/27/2024, Expires: Start: 12-27-2024 End: 03-28-2025 Comprehensive metabolic 2000 panel - Serum or Plasma COMPREHENSIVE METABOLIC PANEL Lab Routine Palpitations Tachycardia Expected: 12/27/2024, Expires: 03/28/2025 [facility] Comment on above: Expected: 12/27/2024, Expires: Start: 12-27-2024 End: 03-28-2025 Magnesium [Mass/volume] in Serum or Plasma MAGNESIUM Lab Routine Palpitations Tachycardia Expected: 12/27/2024, Expires: 03/28/2025 [facility] Comment on above: Expected: 12/27/2024, Expires: Start: 12-27-2024 End: 03-28-2025 Thyrotropin [Units/volume] in Serum or Plasma THYROID STIMULATING HORMONE Lab Routine Palpitations Tachycardia Expected: 12/27/2024, Expires: 03/28/2025 [facility] Comment on above: Expected: 12/27/2024, Expires: Start: 12-27-2024 End: 12-27-2024 Patient encounter procedure 12/27/2024 12:20 PM EDT Office Visit [facility] [place] [address] [place] [id number] Issac Fernández MD [address] [place], [place] [id number] Migraines. Random Elevated HR. See triage. [facility] Comment on above: Migraines. Random Elevated HR. See bryson javier Start: 12-03-2024 End: 12-03-2024 Nursing evaluation of patient and report 12/03/2024 9:15 AM EDT Nurse Visit [facility] [place] [address] [place] [id number] [place] [address] [place] [phone] Hep B #2 [facility] [place] Comment on above: Hep B #2 Start: 11-23-2024 Hepb vaccine adult 3 dose schedule for im use HEP B VACCINE, 3-DOSE, AGE 20+ YR (ENGERIX-B, RECOMBIVAX HB) Immunization/Injection Routine Need for vaccination Expected: 11/23/2024 (Approximate) [facility] Comment on above: Expected: 11/23/2024 (Approximate) Start: 11-23-2024 End: 11-23-2024 Orders Only 11/23/2024 Orders Only [facility] [place] [address] [place] [address] Issac Fernández MD [address] [facility] [address] Need for vaccination [facility] Comment on above: Need for vaccination Start: 11-22-2024 End: 11-22-2024 Follow-up encounter 11/22/2024 8:00 AM EDT [facility] Psychiatry [address] [facility] [address] Maxine Ellis, CERTIFIED DIETARY MANAGER.MILL RECORDER [address] [facility] [place] [address] 4-6 week follow up Psychiatry Comment on above: 4-6 week follow up Start: 11-01-2024 End: 11-01-2024 Nursing evaluation of patient and report 11/01/2024 8:30 AM EDT [facility] [address] [facility] [place] [address] Nurse, [place] [address] [facility] [address] Hep B vaccine series (injection 1) [facility] Comment on above: Hep B vaccine series (injection 1) Start: 09-25-2024 End: 09-25-2024 Follow-up encounter 09/25/2024 8:30 AM EDT [facility] Psychiatry [address] [facility] [place] [address] Maxine Ellis, CERTIFIED DIETARY MANAGER.MILL RECORDER [address] [facility] [place] [place] [address] 6 week follow up Psychiatry Comment on above: 6 week follow up Start: 08-14-2024 End: 11-13-2024 Comprehensive metabolic 2000 panel - Serum or Plasma COMPREHENSIVE METABOLIC PANEL Lab Routine Encounter for long-term (current) use of medications Expected: 08/14/2024, Expires: 11/13/2024 [facility] Work Phone: Comment on above: Expected: 08/14/2024, Expires: Start: 08-14-2024 End: 08-14-2024 [facility] 08/14/2024 8:30 AM EST [facility] Psychiatry [address] [place] [address] Maxine Ellis, CERTIFIED DIETARY MANAGER.MILL RECORDER [address] [place] [address] Provider Ordered Follow Up Psychiatry Comment on above: Provider Ordered Follow Up Start: 06-28-2024 End: 06-28-2024 Follow-up encounter Psychiatry Comment on above: follow up Start: 2024 Screening for malignant neoplasm of cervix Cervical Cancer Screening [facility] Start: 05-17-2024 End: 05-17-2024 Patient encounter procedure 05/17/2024 10:00 AM EDT [facility] Psychiatry [address] [place] [address] Maxine Ellis, CERTIFIED DIETARY MANAGER.MILL RECORDER [address] [facility] [place] [place] [address] New consult, Bipolar II Psychiatry Comment on above: New consult, Bipolar II Start: 04-23-2024 End: 04-23-2024 ambulatory 04/23/2024 1:00 PM EDT [facility] Psychology [address] [phone] Toshia Hess [facility] [address] [place], [place] [phone] Return in about 2 weeks (around 04/27/2024). Psychology Comment on above: Return in about 2 weeks (around 04/27/20 24). Start: 03-21-2024 End: 06-20-2024 CBC W Auto Differential panel - Blood COMPLETE BLOOD COUNT AND DIFFERENTIAL Lab Routine Encounter for medical examination to establish care Expected: 03/21/2024, Expires: 06/20/2024 [facility] Work Phone: Comment on above: Expected: 03/21/2024, Expires: Start: 03-21-2024 End: 06-20-2024 Comprehensive metabolic 2000 panel - Serum or Plasma COMPREHENSIVE METABOLIC PANEL Lab Routine Encounter for medical examination to establish care Expected: 03/21/2024, Expires: 06/20/2024 [facility] Comment on above: Expected: 03/21/2024, Expires: Start: 03-21-2024 End: 06-20-2024 Thyrotropin [Units/volume] in Serum or Plasma THYROID STIMULATING HORMONE Lab Routine Anxiety and depression Expected: 03/21/2024, Expires: 06/20/2024 [facility] Comment on above: Expected: 03/21/2024, Expires: Start: 03-18-2024 Covid-19 Vaccine ( season) Covid-19 Vaccine ( season) [facility] Start: 03-18-2024 Covid-19 Vaccine ( season) Covid-19 Vaccine ( season) [facility] Start: 03-18-2024 Influenza vaccination Influenza Vaccine (#1) [facility] Start: 08-27-2023 ASTHMA ACTION PLAN ASTHMA ACTION PLAN [facility] Start: 03-18-2023 Covid-19 Vaccine ( season) Covid-19 Vaccine ( season) [facility] Start: 03-18-2023 Influenza vaccination Influenza Vaccine (#1) [facility] Start: 12-17-2022 Patient discharge [facility] Start: 12-15-2022 Administration of medication [facility] Start: 12-15-2022 Application of ice collar, cap or bag [facility] Start: 12-15-2022 Catheterization of vein [facility] Start: 12-15-2022 Introduction of urinary catheter [facility] Start: 12-15-2022 Measuring intake and output [facility] Start: 12-15-2022 Notification of physician [facility] Start: 12-15-2022 Procedure discontinued [facility] Start: 12-15-2022 Provision of activity privileges [facility] Start: 12-15-2022 Vital signs measurements [facility] Start: 12-15-2022 [facility] Start: 12-13-2022 Admission procedure [facility] Start: 12-13-2022 Verification routine [facility] Start: 11-16-2022 CHLAMYDIA SCREENING (18-24) CHLAMYDIA SCREENING (18-24) [facility] Start: 11-16-2022 GC (GONORRHEA) SCREENING (18-24) GC (GONORRHEA) SCREENING (18-24) [facility] Start: 11-16-2022 Screening for Chlamydia trachomatis Chlamydia Screening (18-) [facility] Start: 11-11-2022 Patient referral [facility] Work Phone: Start: 11-10-2022 Nonstress test [facility] Start: 11-10-2022 Obstetric monitoring [facility] Start: 11-10-2022 Vital signs measurements [facility] Start: 11-10-2022 [facility] Start: 11-10-2022 Iv infusion therapy/prophylaxis /dx 1st to 1 hr THER/PROPH/DIAG IV INF INIT [facility] Start: 11-10-2022 Patient discharge [facility] Start: 09-22-2022 Patient referral [facility] Work Phone: Start: 08-27-2022 Adult depression screening assessment DEPRESSION SCREENING [facility] Start: 08-27-2022 ANNUAL PCP TEAM CHRONIC DISEASE VISIT ANNUAL PCP TEAM CHRONIC DISEASE VISIT [facility] Start: 08-27-2022 ASTHMA CONTROL TEST ASTHMA CONTROL TEST [facility] Start: 05-13-2022 Chlamydia deoxyribonucleic acid detection [facility] Work Phone: Start: 03-18-2022 Influenza vaccination INFLUENZA (Season Ended) [facility] Start: 2021 CHLAMYDIA SCREENING (18-24) CHLAMYDIA SCREENING (18-24) [facility] Start: 2021 GC (GONORRHEA) SCREENING (18-24) GC (GONORRHEA) SCREENING (18-24) [facility] Start: 2021 HEPATITIS C SCREENING HEPATITIS C SCREENING [facility] Start: 2021 Hepatitis C screening Hepatitis C Screening [facility] Start: 2021 HIV SCREENING HIV SCREENING [facility] Start: 2021 HIV screening HIV Screening [facility] Start: 2021 SPIROMETRY SPIROMETRY [facility] Start: 2019 Meningococcal B Vaccine (1 of 2 - Standard) Meningococcal B Vaccine (1 of 2 - Standard) [facility] Start: 2019 Meningococcal B Vaccine: Consider Based On Risk (1 of 2 - Patient Seeks Protection) Meningococcal B Vaccine: Consider Based On Risk (1 of 2 - Patient Seeks Protection) [facility] Start: 2019 MENINGOCOCCAL CONJUGATE (2 - 2-dose series) MENINGOCOCCAL CONJUGATE (2 - 2-dose series) [facility] Start: 2017 PEDS TO ADULT TRANSITION ANNUAL ASSESSMENT PEDS TO ADULT TRANSITION ANNUAL ASSESSMENT [facility] Start: 2015 PEDS TO ADULT TRANSITION INITIAL DISCUSSION PEDS TO ADULT TRANSITION INITIAL DISCUSSION [facility] Start: 2013 MENINGOCOCCAL B: Consider based on risk (1 of 2 - Risk Bexsero 2-dose series) MENINGOCOCCAL B: Consider based on risk (1 of 2 - Risk Bexsero 2-dose series) [facility] Start: 2009 Pneumococcal vaccination Pneumococcal Vaccine (1 - PCV) [facility] Start: 2008 COVID-19 VACCINE (1) [facility] Start: 2003 Covid-19 Vaccine (#1) Covid-19 Vaccine (#1) [facility] Cardiovascular funct ion eval w/tilt table w/mntr TILT TABLE EVALUATION Cardiology Routine Positional lightheadedness Ordered: 03/14/2025 [facility] Work Phone: Comment on above: Ordered: 03/14/2025 CBC W Auto Different ial panel - Blood [facility] Work Phone: CBC W Auto Different ial panel - Blood [facility] CBC W Auto Different ial panel - Blood [facility] COVID & INFLUENZA A/ B & RSV PCR, ROUTINE COVID & INFLUENZA A/B & RSV PCR, ROUTINE Microbiology Routine URI, acute Ordered: 09/12/2024 [facility] Work Phone: Comment on above: Ordered: 09/12/2024 ECG COMPLETE ECG COMPLETE ECG Routine Palpitations Tachycardia 12/27/2024 12:37 PM EDT [facility] End: 12-27-2025 Echocardiography ECHO Cardiology LEIGH ANN Palpitations Tachycardia 1 Occurrences starting 12/27/2024 until 12/27/2025 [facility] Comment on above: 1 Occurrences starting 12/27/2024 until 12/27/2025 Glucose [Mass/volume ] in Serum or Plasma --1 hour post 50 g glucose PO [facility] Hematocrit [Volume Fraction] of Blood [facility] Hemoglobin [Mass/vol ume] in Blood [facility] Hemoglobin A1c/Hemoglobin.total in Blood [facility] Hepatitis B surface antigen measurement [facility] Work Phone: Hepatitis B surface antigen measurement [facility] Hepatitis B surface antigen measurement [facility] Hepatitis C antibody measurement [facility] Work Phone: Hepatitis C antibody measurement [facility] Hepatitis C antibody measurement [facility] Hepb vaccine adult 3 dose schedule for im use HEP B VACCINE, 3-DOSE, AGE 20+ YR (ENGERIX-B, RECOMBIVAX HB) Immunization/Injection Routine Need for vaccination Ordered: 10/24/2024 [facility] Work Phone: Comment on above: Ordered: 10/24/2024 HIV 1+2 Ab+HIV1 p24 Ag [Presence] in Serum or Plasma by Immunoassay [facility] Work Phone: HIV 1+2 Ab+HIV1 p24 Ag [Presence] in Serum or Plasma by Immunoassay [facility] HIV 1+2 Ab+HIV1 p24 Ag [Presence] in Serum or Plasma by Immunoassay [facility] Leukocytes [#/volume ] in Blood [facility] Mean corpuscular hemoglobin concentration determination [facility] Mean corpuscular hemoglobin determination [facility] End: 02-24-2026 MR Brain WO contrast MRI BRAIN WO IVCON Radiology LE[facility] Migraine without status migrainosus, not intractable, unspecified migraine type Unsteadiness on feet Numbness and tingling Demyelinating disease of central nervous system (HCC) 1 Occurrences starting 01/25/2025 until 02/24/2026 [facility] Work Phone: Comment on above: 1 Occurrences starting 01/25/2025 until 02/24/2026 Neisseria gonorrhoea e rRNA [Presence] in Unspecified specimen by REYNALDO with probe detection [facility] Work Phone: Neutrophil count [facility] Neutrophil percent differential count [facility] OUTSIDE VENDOR CARDI AC OUTPATIENT EXTENDED RHYTHM RECORDING (WITHOUT TELEMETRY) OUTSIDE VENDOR CARDIAC OUTPATIENT EXTENDED RHYTHM RECORDING (WITHOUT TELEMETRY) Holter Routine Palpitations Tachycardia Ordered: 12/27/2024 [facility] Comment on above: Ordered: 12/27/[address] [facility] Work Phone: Patient referral [facility] Work Phone: PCR test for Chlamyd ia trachomatis [facility] Work Phone: Platelets [#/volume] in Blood [facility] Red blood cell count [facility] Red cell distributio n width determination [facility] Removal impacted cer umen instrumentation unilat REMOVAL OF IMPACTED CERUMEN - INSTRUMENTATION Procedures Routine Impacted cerumen of right ear Ordered: 02/07/2025 [facility] Work Phone: Comment on above: Ordered: 02/07/2025 Rubella IgG measurement [facility] Work Phone: Rubella IgG measurement [facility] Rubella IgG measurement [facility] Treponema sp Ab [Presence] in Serum [facility] Work Phone: Treponema sp Ab [Presence] in Serum [facility] Treponema sp Ab [Presence] in Serum [facility] Ultrasound scan for growth [facility] Urine test visual color cmprsn meths HCG QUAL UR B/O Lab Routine Urinary frequency Ordered: 11/06/2024 [facility] Work Phone: Comment on above: Ordered: 11/06/2024 Urine test visual color cmprsn meths HCG QUAL UR B/O Lab Routine Encounter for test, result unknown Ordered: 12/27/2024 [facility] Comment on above: Ordered: 12/27/2024 [facility] Immunizations Immunization Date Immunization Notes Care Provider Jessie don 11-01-2024 hepatitis B vaccine, adult dosage Mi Nurse Work Phone: [facility] 11-03-2022 tetanus toxoid, redu joesph diphtheria toxoid, and acellular pertussis vaccine, adsorbed Dr. Dennis Recinos Work Phone: [facility] 07-20-2017 Human Papillomavirus 9-valent vaccine Becca Stearns PA-C Work Phone: [facility] Work Phone: 07-20-2017 influenza virus vacc ine, unspecified formulation Becca Stearns PA-C Work Phone: [facility] 02-06-2016 Human Papillomavirus 9-valent vaccine Becca Stearns PA-C Work Phone: [facility] Work Phone: 02-06-2016 meningococcal polysaccharide (groups A, C, Y and W-135) diphtheria toxoid conjugate vaccine (MCV4P) Becca Stearns PA-C Work Phone: [facility] Work Phone: 02-06-2016 tetanus toxoid, redu joesph diphtheria toxoid, and acellular pertussis vaccine, adsorbed Becca Stearns PA-C Work Phone: [facility] Work Phone: 02-06-2016 varicella virus vaccine Becca Stearns PA-C Work Phone: [facility] Work Phone: 05-12-2009 influenza virus vacc ine, live, attenuated, for intranasal use Becca Stearns PA-C Work Phone: [facility] Work Phone: 02-11-2009 diphtheria, tetanus toxoids and acellular pertussis vaccine Becca Athy PA-C Work Phone: [facility] Work Phone: 02-11-2009 measles, mumps and rubella virus vaccine Becca Athy PA-C Work Phone: [facility] Work Phone: 02-11-2009 poliovirus vaccine, inactivated Becca Athy PA-C Work Phone: [facility] Work Phone: 01-05-2005 diphtheria, tetanus toxoids and acellular pertussis vaccine Becca Athy PA-C Work Phone: [facility] 01-05-2005 haemophilus influenz ae type b vaccine, HbOC conjugate Becca Athy PA-C Work Phone: [facility] 01-05-2005 pneumococcal conjuga te vaccine, 7 valent Becca Athy PA-C Work Phone: [facility] 09-02-2004 measles, mumps and rubella virus vaccine Becca Athy PA-C Work Phone: [facility] 09-02-2004 varicella virus vaccine Becca Athy PA-C Work Phone: [facility] 04-22-2004 pneumococcal conjuga te vaccine, 7 valent Becca Athy PA-C Work Phone: [facility] 01-22-2004 diphtheria, tetanus toxoids and acellular pertussis vaccine Becca Athy PA-C Work Phone: [facility] 01-22-2004 haemophilus influenz ae type b vaccine, HbOC conjugate Becca Athy PA-C Work Phone: [facility] 01-22-2004 hepatitis B vaccine, pediatric or pediatric/adolescent dosage Becca Athy PA-C Work Phone: [facility] 01-22-2004 poliovirus vaccine, inactivated Becca Athy PA-C Work Phone: [facility] 2003 diphtheria, tetanus toxoids and acellular pertussis vaccine Becca Athy PA-C Work Phone: [facility] 2003 haemophilus influenz ae type b vaccine, HbOC conjugate Becca Athy PA-C Work Phone: [facility] 2003 pneumococcal conjuga te vaccine, 7 valent Becca Athy PA-C Work Phone: [facility] 2003 poliovirus vaccine, inactivated Becca Athy PA-C Work Phone: [facility] 2003 diphtheria, tetanus toxoids and acellular pertussis vaccine Becca Athy PA-C Work Phone: [facility] 2003 haemophilus influenz ae type b vaccine, HbOC conjugate Becca Athy PA-C Work Phone: [facility] 2003 pneumococcal conjuga te vaccine, 7 valent Becca Athy PA-C Work Phone: [facility] 2003 poliovirus vaccine, inactivated Becca Athy PA-C Work Phone: [facility] 2003 hepatitis B vaccine, pediatric or pediatric/adolescent dosage Becca Athy PA-C Work Phone: [facility] 2003 hepatitis B vaccine, pediatric or pediatric/adolescent dosage Becca Athy PA-C Work Phone: [facility] Payers Date Payer Category Payer Private Health Insurance [id number] 2024 Self-pay [id number] 2023 Private Health Insurance [id number] 2020 Private Health Insurance [id number] 2011 Private Health Insurance [employer] CHOICE POS II [id number] 2011-Present [phone] [address] [place] [address] POS [id number] 2003 Unknown [id number] 2003 Unknown [id number] 2003 Unknown [id number] Private Health Insurance [employer] [id number] Unknown [employer] [id number] Unknown [id number] Unknown [id number] Unknown [facility] [place] [id number] Unknown [id number] 62 Unknown [id number] 62 Unknown [id number] 62 Unknown [id number] 62 Unknown [id number] [id number] 62 Unknown [id number] [id number] 62 Unknown [id number] [id number] 62 Unknown [id number] [id number] 62 Unknown [id number] [id number] 62 Unknown [id number] [id number] 62 Unknown [id number] [id number] 62 Unknown [id number] [id number] 62 Unknown [id number] [id number] 62 Unknown [id number] 62 Social History Date Type Detail Facility Start: 05-25-2023 Tobacco smoking stat us NHIS Never smoked tobacco [facility] Start: 11-05-2021 End: 03-28-2025 Alcohol intake Lifetime non-drinker (finding) [facility] Start: 11-05-2021 History SDOH Alcohol Frequency 1 [facility] Start: 2003 Sex Assigned At Not on file [facility] Start: 10-26-2021 End: 11-16-2021 Exposure to SARS-CoV-2 (event) Not sure [facility] Start: 11-02-2017 End: 07-08-2023 Tobacco smoking status NHIS Unknown if ever smoked [facility] Start: 2003 Sex Assigned At Female [facility] Start: 05-07-2023 [facility] Start: 05-25-2023 Tobacco use and exposure Smoke less tobacco non-user [facility] Start: 05-25-2023 End: 03-20-2024 History of Social function [facility] Start: 05-25-2023 End: 03-20-2024 Tobacco use panel [facility] Start: 06-18-2012 National Score (1-10 0), lower number is lower risk 90 [facility] Do you belong to any clubs or organizations such as scientologist groups, unions, fraternal or athletic groups, or school groups? No [facility] Are you now , , , , never or living with a partner? Living with partner [facility] How often to you hav e a drink containing alcohol? Never [facility] How hard is it for y ou to pay for the very basics like food, housing, medical care, and heating Not very hard [facility] Do you feel stress - tense, restless, nervous, or anxious, or unable to sleep at night because your mind is troubled all the time - these days [OSQ] Rather much [facility] (I/We) worried wheth er (my/our) food would run out before (I/we) got money to buy more. Never true [facility] Medical Equipment Procedure Code Equipment Code Equipment Origin al Text Equipment Identifier Dates Blood Sugar Diagnostic (True Metrix Glucose Test Strip) strip Start: 11-03-2022 Lancets Start: 11-03-2022 Blood Sugar Diagnostic (True Metrix Glucose Test Strip) strip Start: 11-03-2022 End: 11-03-2022 Blood Sugar Diagnostic (Onetouch Verio Test Strips) strip Start: 11-16-2022 Blood Sugar Diagnostic (True Metrix Glucose Test Strip) strip Start: 11-03-2022 Lancets Start: 11-03-2022 Lancets (Onetouc h Delica Plus Lancet) 33 gauge misc Start: 11-16-2022 Pen Needle, Diab etic (Bd Ultra-Fine Domonique Pen Needle) 32 gauge x 5/32 needle Start: 11-16-2022 Blood Sugar Diagnostic (True Metrix Glucose Test Strip) strip Start: 11-03-2022 End: 11-03-2022 Blood Sugar Diagnostic (Onetouch Verio Test Strips) strip Start: 11-16-2022 Blood Sugar Diagnostic (True Metrix Glucose Test Strip) strip Start: 11-03-2022 Lancets Start: 11-03-2022 Lancets (Onetouc h Delica Plus Lancet) 33 gauge misc Start: 11-16-2022 Pen Needle, Diab etic (Bd Ultra-Fine Domonique Pen Needle) 32 gauge x 5/32 needle Start: 11-16-2022 Blood Sugar Diagnostic (True Metrix Glucose Test Strip) strip Start: 11-03-2022 End: 11-03-2022 Blood Sugar Diagnostic (Onetouch Verio Test Strips) strip Start: 11-16-2022 End: 01-04-2023 Blood Sugar Diagnostic (True Metrix Glucose Test Strip) strip Start: 11-03-2022 End: 11-03-2022 Blood Sugar Diagnostic (True Metrix Glucose Test Strip) strip Start: 11-03-2022 End: 01-04-2023 Lancets Start: 11-03-2022 End: 01-04-2023 Lancets (Onetouc h Delica Plus Lancet) 33 gauge misc Start: 11-16-2022 End: 01-04-2023 Pen Needle, Diab etic (Bd Ultra-Fine Domonique Pen Needle) 32 gauge x 5/32 needle Start: 11-16-2022 End: 01-04-2023 Blood Sugar Diagnostic (Onetouch Verio Test Strips) strip Start: 11-16-2022 End: 01-04-2023 Blood Sugar Diagnostic (True Metrix Glucose Test Strip) strip Start: 11-03-2022 End: 11-03-2022 Blood Sugar Diagnostic (True Metrix Glucose Test Strip) strip Start: 11-03-2022 End: 01-04-2023 Lancets Start: 11-03-2022 End: 01-04-2023 Lancets (Onetouc h Delica Plus Lancet) 33 gauge misc Start: 11-16-2022 End: 01-04-2023 Pen Needle, Diab etic (Bd Ultra-Fine Domonique Pen Needle) 32 gauge x 5/32 needle Start: 11-16-2022 End: 01-04-2023 Goals Date Patient Goal Desired Activity /State Functional Status Date Assessment Result Facility 10-23-2014 Are you deaf, or do you have serious difficulty hearing No 10/23/2014 9:03 AM Allyson Burk MA No [facility] 10-23-2014 Are you blind, or do you have serious difficulty seeing, even when wearing glasses No 10/23/2014 9:03 AM Allyson Burk MA No [facility] 10-23-2014 Do you have serious difficulty walking or climbing stairs No 10/23/2014 9:03 AM Allyson Burk MA No [facility] 10-23-2014 Do you have difficul ty dressing or bathing No 10/23/2014 9:03 AM Allyson Burk MA No [facility] Mental Status Date Assessment Result Facility 10-23-2014 Because of a physica l, mental, or emotional condition, do you have serious difficulty concentrating, remembering, or making decisions No 10/23/2014 9:03 AM EDT Allyson Peters MA No [facility] Clinical Notes 11-05-2021 to 04-02-2025 Maxine Ellis APRN.CNP - 04/02/2025 8:29 AM EDTTelephone Encounter - Antoinette Burgess RN - 04/01/2025 1:33 PM EDTTelephone Encounter - Antoinette Burgess RN - 04/01/2025 1:33 PM EDT Note Date & Type Note Facility 04-02-2025 Note HNO ID: [id number] Author: MAXINE ELLIS APRN.CNP Service: ? Author Type: Nurse Practitioner Type: Progress Notes Filed: 04/02/2025 08:29 Note Text: Patient did not come in for her follow up appointment with the provider. [facility] 04-02-2025 History of Presen t illness Narrative Patient did not come in for her follow up appointment with the provider. documented in this encounter [facility] 04-01-2025 Telephone encounter Note Patient calls and states that she has had a lot of head pressure since Tuesday. Patient states that she gets like this when she has something viral going on. Patient asking provider what she should be doing for this? Patient was seen ER for this on 03/28/2025. Antoinette Burgess RN [facility] 04-01-2025 Miscellaneous Notes Patient calls and states that she has had a lot of head pressure since Tuesday. Patient states that she gets like this when she has something viral going on. Patient asking provider what she should be doing for this? Patient was seen ER for this on 03/28/2025. Antoinette Burgess RN documented in this encounter [facility] 03-28-2025 Note HNO ID: [id number] Author: BHARAT MOSHER MD Service: ? Author Type: Physician Type: Progress Notes Filed: 03/28/2025 11:10 Note Text: [facility] Brink is a 19 year old female. Patient presents with: Dizziness: Sob, nasal congestion, green mucus, sinus pressure x 5 days Patient presents to the urgent care primarily with concern for dizziness. He has been dealing with multiple symptoms for over a month including dizziness, shortness of breath, and right leg tightness. The last 5 days she has had significant worsening of all of her symptoms. She also has new onset of nasal congestion, rhinorrhea, sinus pressure, right ear pain, and scratchy throat. She has mild chest tightness or pressure. She has a mild dry cough. She had a headache 3 days ago. Denies vision change, numbness, weakness, fever, vomiting, diarrhea. She describes the dizziness as a combination of her prior near syncope and heart racing only worse as well as new continuous swaying feeling when she is sitting still; swaying is exacerbated by moving her head. Shortness of breath is increased the last 5 days; she feels dyspneic with conversations. She feels a lump in the back of her right leg which was felt to be a varicose vein when seen by her PCP last week. Her children have rync-aawx-ipx-mouth disease. 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 She has taken Advil sinus for symptoms as well as routine Claritin. She has been prescribed amitriptyline but has not started it yet. No medication changes. Dizziness Associated symptoms include dizziness. Review of Systems Neurological: Positive for dizziness. Objective BP 122/96 Pulse 75 Temp 36.7 ?C (98 ?F) Resp 18 Wt 72.4 kg (159 lb 9.8 oz) LMP (LMP Unknown) SpO2 99% Yes BMI 27.45 kg/m? Physical Exam Constitutional: General: She is not in acute distress. HENT: Right Ear: Tympanic membrane and ear canal normal. Left Ear: Tympanic membrane and ear canal normal. Nose: Congestion present. Right Sinus: Frontal sinus tenderness present. No maxillary sinus tenderness. Left Sinus: Frontal sinus tenderness present. No maxillary sinus tenderness. Mouth/Throat: Mouth: Mucous membranes are moist. Pharynx: Posterior oropharyngeal erythema present. No oropharyngeal exudate. Eyes: Extraocular Movements: Extraocular movements intact. Conjunctiva/sclera: Conjunctivae normal. Pupils: Pupils are equal, round, and reactive to light. Cardiovascular: Rate and Rhythm: Normal rate and regular rhythm. Heart sounds: No murmur heard. Pulmonary: Effort: No respiratory distress. Breath sounds: No wheezing, rhonchi or rales. Musculoskeletal: Cervical back: Neck supple. Comments: No right popliteal erythema or edema. Medial posterior knee lump not palpable. Lymphadenopathy: Cervical: No cervical adenopathy. Neurological: Mental Status: She is alert. Cranial Nerves: Cranial nerves 2-12 are intact. Motor: No weakness or tremor. Coordination: Coordination normal. Gait: Gait normal. Deep Tendon Reflexes: Reflexes are normal and symmetric. Psychiatric: Mood and Affect: Mood normal. {ASSESSMENT/PLAN: 1. Dizziness - ICD9: 780.4, ICD10: R42 (primary diagnosis) 2. SOB (shortness of breath) - ICD9: 786.05, ICD10: R06.02 3. Nasal congestion - ICD9: 478.19, ICD10: R09.81 4. Right leg pain - ICD9: 729.5, ICD10: M79.604 Suspect 5 days of viral URI. She has had exacerbation and change in concerning symptoms of dizziness, shortness of breath, chest tightness. Considering presence of right leg pain she will go to the ER to have pulmonary embolism ruled out. Bharat Mosher MD Differential Diagnoses - viral URI - Rule out DVT/PE - autonomic dysfunction is more likely for the following reason(s): hypotensive episodes Disposition The patient was other (comment) (referred to [facility] ED). Procedures [facility] 03-28-2025 History of Presen t illness Narrative [facility] Ayse Brink is a 19 year old female. Patient presents with: Dizziness: Sob, nasal congestion, green mucus, sinus pressure x 5 days Patient presents to the urgent care primarily with concern for dizziness. He has been dealing with multiple symptoms for over a month including dizziness, shortness of breath, and right leg tightness. The last 5 days she has had significant worsening of all of her symptoms. She also has new onset of nasal congestion, rhinorrhea, sinus pressure, right ear pain, and scratchy throat. She has mild chest tightness or pressure. She has a mild dry cough. She had a headache 3 days ago. Denies vision change, numbness, weakness, fever, vomiting, diarrhea. She describes the dizziness as a combination of her prior near syncope and heart racing only worse as well as new continuous swaying feeling when she is sitting still; swaying is exacerbated by moving her head. Shortness of breath is increased the last 5 days; she feels dyspneic with conversations. She feels a lump in the back of her right leg which was felt to be a varicose vein when seen by her PCP last week. Her children have tqyb-kymq-rau-mouth disease. 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 She has taken Advil sinus for symptoms as well as routine Claritin. She has been prescribed amitriptyline but has not started it yet. No medication changes. Dizziness Associated symptoms include dizziness. Review of Systems Neurological: Positive for dizziness. Objective BP 122/96 Pulse 75 Temp 36.7 C (98 F) Resp 18 Wt 72.4 kg (159 lb 9.8 oz) LMP (LMP Unknown) SpO2 99% Yes BMI 27.45 kg/m Physical Exam Constitutional: General: She is not in acute distress. HENT: Right Ear: Tympanic membrane and ear canal normal. Left Ear: Tympanic membrane and ear canal normal. Nose: Congestion present. Right Sinus: Frontal sinus tenderness present. No maxillary sinus tenderness. Left Sinus: Frontal sinus tenderness present. No maxillary sinus tenderness. Mouth/Throat: Mouth: Mucous membranes are moist. Pharynx: Posterior oropharyngeal erythema present. No oropharyngeal exudate. Eyes: Extraocular Movements: Extraocular movements intact. Conjunctiva/sclera: Conjunctivae normal. Pupils: Pupils are equal, round, and reactive to light. Cardiovascular: Rate and Rhythm: Normal rate and regular rhythm. Heart sounds: No murmur heard. Pulmonary: Effort: No respiratory distress. Breath sounds: No wheezing, rhonchi or rales. Musculoskeletal: Cervical back: Neck supple. Comments: No right popliteal erythema or edema. Medial posterior knee lump not palpable. Lymphadenopathy: Cervical: No cervical adenopathy. Neurological: Mental Status: She is alert. Cranial Nerves: Cranial nerves 2-12 are intact. Motor: No weakness or tremor. Coordination: Coordination normal. Gait: Gait normal. Deep Tendon Reflexes: Reflexes are normal and symmetric. Psychiatric: Mood and Affect: Mood normal. {ASSESSMENT/PLAN: 1. Dizziness - ICD9: 780.4, ICD10: R42 (primary diagnosis) 2. SOB (shortness of breath) - ICD9: 786.05, ICD10: R06.02 3. Nasal congestion - ICD9: 478.19, ICD10: R09.81 4. Right leg pain - ICD9: 729.5, ICD10: M79.604 Suspect 5 days of viral URI. She has had exacerbation and change in concerning symptoms of dizziness, shortness of breath, chest tightness. Considering presence of right leg pain she will go to the ER to have pulmonary embolism ruled out. Bharat Mosher MD Differential Diagnoses - viral URI - Rule out DVT/PE - autonomic dysfunction is more likely for the following reason(s): hypotensive episodes Disposition The patient was other (comment) (referred to [facility] ED). Procedures documented in this encounter [facility] 03-27-2025 Telephone encounter Note Behavioral Health Social Work Progress Note Patient identified for [facility] from: PCP [facility] encounter type: Telephone Encounter Attempts to Outreach: 4 attempts Referral made: Psychology - Internal Psychology-Internal referral type: Therapy Final Disposition: Care established with Patient Discharged?: No therapist returned patient's call, left vmm for patient to return call to scheduled therapy appointment. MARGARETTE Henderson-Hailey March 27, 2025 [facility] Work Phone: 03-27-2025 Miscellaneous Notes Behavioral Health Social Work Progress Note Patient identified for [facility] from: PCP [facility] encounter type: Telephone Encounter Attempts to Outreach: 4 attempts Referral made: Psychology - Internal Psychology-Internal referral type: Therapy Final Disposition: Care established with Patient Discharged?: No therapist returned patient's call, left vmm for patient to return call to scheduled therapy appointment. MARGARETTE Henderson-S March 27, 2025 documented in this encounter [facility] 03-25-2025 Instructions Maxine Ellis APRN.MILL RECORDER - 03/25/2025 8:50 PM EDT - Take amitriptyline (Elavil) exactly as prescribed: 10 mg at bedtime for 1 week, then 20 mg at bedtime for 1 week, then switch to the 25 mg tablet at bedtime for 4 weeks. The prescription (30 tablets, 2 refills) has been sent to [facility] in [place]. - Take amitriptyline with food to help prevent stomach upset; expect some sedation at night, which can aid sleep. - Restart your magnesium supplement for migraine and anxiety support. - Begin a daily multivitamin to support overall health and needs. - Start an omega-3 (fish oil) supplement 1,000-1,200 mg daily; if well tolerated after 2 weeks, you may increase to 2,000-2,400 mg. - When an intrusive what if thought arises, visualize a red stop sign to interrupt it without engaging. - If the stop-sign technique is hard to use, write intrusive thoughts on paper, cross out those you can t control or that feel irrational, and focus on the few you can act on. - Avoid reassurance-seeking behaviors: delete or password-protect [employer], and health apps; block websites or turn off Wi-Fi when needed. - Ask your fianc to set pravin and website blocks on your phone and remind you to stop checking; when you re worried, have him help you decide if the worry is rational. - At work, arrange for a trusted colleague to keep vital-sign equipment (blood pressure cuff, pulse ox) out of reach to prevent compulsive checking. - Monitor for sedation or any new stomach upset; if you notice other concerning side effects, contact me. - Attend your virtual follow-up appointment on April 19 at 8:00 AM. - For any questions about your medication or side effects, reach out to me instead of searching online. For those experiencing a suicidal crisis: --call the National Suicide Prevention Lifeline at 988 (346-615-5414) --text the Crisis Text Line (text HOME to 074978) --call 911 and let them know you are having a mental health crisis or go to your nearest Emergency Room for stabilization. --You can also call Mobile Crisis at [phone]. -- You may call the department appointment line at [phone] to schedule your appointment. -- Please call my nurse at [phone] or send me a message in Ent[employer] with any questions or concerns between appointments. documented in this encounter [facility] 03-22-2025 Instructions Issac Fernández MD - 03/22/2025 9:35 AM EDT - Monitor the varicose vein behind your right knee; no ultrasound or blood tests are needed at this time. Contact the office if it becomes painful, rock-hard, red, or tender. - Drink at least 5-6 bottles of water each day and eat three meals daily to support healthy blood pressure. - Report any new chest pain, heart palpitations, or worsening dizziness promptly. - Proceed with the tilt table test ordered by Citlali Ceja and schedule a follow-up visit to review the results. - Maintain a balanced diet and regular exercise; your recent weight loss is expected with . - Access your after-visit summary and paperwork in [employer] at your convenience. - Keep your routine follow-up appointment in April as scheduled. documented in this encounter [facility] 03-22-2025 Note HNO ID: [id number] Author: ISSAC FERNÁNDEZ MD Service: ? Author Type: Physician Type: Progress Notes Filed: 03/22/2025 09:35 Note Text: Chief Complaint Patient presents with: Lump: Noticed lump on inner left backside of right knee X 2-3 ago. It's elongated in shape and has gotten bigger since first noticing. Denies pain, redness or warmth to touch. Complains of tightness around her right alcantara. Refers to feeling like someone is squeezing her leg. Shortness of Breath: Ongoing. Blood Pressure: Admits to low blood pressure. Was told to follow up after echo results. Recording using [employer] software for draft documentation of the visit was discussed with the patient/authorized billing customer service representative; all questions welcomed and answered. Patient/authorized billing customer service representative agreed to proceed HPI Shawanda Brink is a 19 year old female who presents here today for Above Complaints. Lump on Knee: - Shawanda Brink noticed a lump on the knee 2-3 weeks ago. - Describes it as feeling like a rope or line rather than a circular lump. - Reports the lump is growing in size. - No associated redness, swelling, or pain. - Lump changes position when standing. - Occasionally feels weirdly cold after manipulation. - Shawanda has experienced tightness in the ankle area, initially thought to be related to migraine attacks by a neurologist. Hypotension: - Shawanda reports episodes of hypotension with readings as low as 94/65 mmHg and 81/60 mmHg. - Noted hypotension while walking around at work, about an hour after lunch. - Experiences dizziness and lightheadedness during these episodes. - Recent echocardiogram and Holter monitor were normal. - Tilt table test ordered by Citlali Tejada. Weight Loss: - Significant weight loss since January 25, dropping from 169 lbs to 157 lbs. - Recent history of strep infection. - Currently . - Recent thyroid function tests were normal. Past medical history, appointments, medications, allergies reviewed. Previous Medical History PAST MEDICAL HISTORY Diagnosis Date Acne vulgaris 08/18/2015 Anxiety Bipolar 2 disorder (HCC) Cough variant asthma (HCC) 09/27/2016 Depression Migraines PMH - PAST MEDICAL HISTORY OF vascular rose left ankle Previous Surgical History PAST SURGICAL HISTORY Procedure Laterality Date NONE Family History FAMILY HISTORY Problem Relation Age of Onset Ange Disease Mother other (pulmnary embolism) Father other (mass on liver) Father other (depression and anxiety) Maternal Grandmother Cervical Cancer Maternal Grandmother other ([place]) Maternal Grandfather 49 other (depression and anxiety) Paternal Grandmother Bipolar disorder Paternal Grandmother Anxiety disorder Paternal Grandfather Cancer Other PATERNAL AND MATERNAL SIDES Diabetes Other PATERNAL AND MATERNAL SIDES other (CLOTTING DISORDER) Other PATERNAL SIDE - FACTOR 5 DISORDER Paternal great aunt Patient Allergies ALLERGIES Allergen Reactions Celexa [Citalopram] Other: See Comments Tunnel vision Lexapro [Escitalopr* Rash Current Medications Current Outpatient Medications on File Prior to Visit Medication Sig amitriptyline (ELAVIL) 25 mg tablet Take 1 tablet by mouth daily at bedtime. eletriptan (RELPAX) 20 mg tablet Take 1 tablet by mouth as needed. at the onset of migraine headache. pantoprazole DR (PROTONIX) 20 mg tablet Take 1 tablet by mouth once daily. fluticasone (FLONASE) 50 mcg/actuation nasal spray No current facility-administered medications on file prior to visit. Social History SOCIAL HISTORY[1] Review of Symptoms REVIEW OF SYSTEMS See HPI EXAM: BP 116/84 Pulse 84 Ht 162.4 cm (5' 3.94) Wt 71.2 kg (157 lb) LMP (LMP Unknown) SpO2 99% BMI 27.00 kg/m? General Appearance: Well appearing, alert, in no acute distress, well-hydrated, well nourished.. Skin: Skin color, texture, turgor normal, no suspicious rashes or lesions. Lungs: Lungs clear to auscultation. No wheezing, rhonchi, rales.. Heart: RRR without murmur, gallop, or rubs. No ectopy. Extremities: 2-3 cm varicose vein behind right knee on medial aspect without TTP, erythema, induration. No edema or LE swelling noted. Health Maintenance List Meningococcal B Vaccine(1 of 2 - Standard) Never done Hepatitis C Screening Never done HIV Screening Never done GC (Gonorrhea) Screening (18-24) due on 11/16/2022 Chlamydia Screening (18-24) due on 11/16/2022 Cervical Cancer Screening Never done Influenza Vaccine(1) due on 03/18/2025 Annual PCP Team Chronic Disease Visit due on 03/22/2026 DTaP,Tdap,Td Vaccine(8 - Td or Tdap) due on 11/03/2032 Hepatitis B Vaccine Completed HPV Vaccine Completed Asthma Control Test Discontinued Asthma Action Plan Discontinued 1. Asymptomatic varicose veins of right lower extremity (I83.91) - Small, non-tender, non-erythematous varicose vein behind right knee; no evidence of (more content not included)... [facility] 03-22-2025 History of Presen t illness Narrative Chief Complaint Patient presents with: Lump: Noticed lump on inner left backside of right knee X 2-3 ago. It's elongated in shape and has gotten bigger since first noticing. Denies pain, redness or warmth to touch. Complains of tightness around her right alcantara. Refers to feeling like someone is squeezing her leg. Shortness of Breath: Ongoing. Blood Pressure: Admits to low blood pressure. Was told to follow up after echo results. Recording using HALFP[employer] software for draft documentation of the visit was discussed with the patient/authorized billing customer service representative; all questions welcomed and answered. Patient/authorized billing customer service representative agreed to proceed HPI Shawanda Brink is a 19 year old female who presents here today for Above Complaints. Lump on Knee: - Shawanda Brink noticed a lump on the knee 2-3 weeks ago. - Describes it as feeling like a rope or line rather than a circular lump. - Reports the lump is growing in size. - No associated redness, swelling, or pain. - Lump changes position when standing. - Occasionally feels weirdly cold after manipulation. - Shawanda has experienced tightness in the ankle area, initially thought to be related to migraine attacks by a neurologist. Hypotension: - Shawanda reports episodes of hypotension with readings as low as 94/65 mmHg and 81/60 mmHg. - Noted hypotension while walking around at work, about an hour after lunch. - Experiences dizziness and lightheadedness during these episodes. - Recent echocardiogram and Holter monitor were normal. - Tilt table test ordered by Citlali Tejada. Weight Loss: - Significant weight loss since January 25, dropping from 169 lbs to 157 lbs. - Recent history of strep infection. - Currently . - Recent thyroid function tests were normal. Past medical history, appointments, medications, allergies reviewed. Previous Medical History PAST MEDICAL HISTORY Diagnosis Date Acne vulgaris 08/18/2015 Anxiety Bipolar 2 disorder (HCC) Cough variant asthma (HCC) 09/27/2016 Depression Migraines PMH - PAST MEDICAL HISTORY OF vascular rose left ankle Previous Surgical History PAST SURGICAL HISTORY Procedure Laterality Date NONE Family History FAMILY HISTORY Problem Relation Age of Onset Ange Disease Mother other (pulmnary embolism) Father other (mass on liver) Father other (depression and anxiety) Maternal Grandmother Cervical Cancer Maternal Grandmother other ([place]) Maternal Grandfather 49 other (depression and anxiety) Paternal Grandmother Bipolar disorder Paternal Grandmother Anxiety disorder Paternal Grandfather Cancer Other PATERNAL & MATERNAL SIDES Diabetes Other PATERNAL & MATERNAL SIDES other (CLOTTING DISORDER) Other PATERNAL SIDE - FACTOR 5 DISORDER Paternal great aunt Patient Allergies ALLERGIES Allergen Reactions Celexa [Citalopram] Other: See Comments Tunnel vision Lexapro [Escitalopr* Rash Current Medications Current Outpatient Medications on File Prior to Visit Medication Sig amitriptyline (ELAVIL) 25 mg tablet Take 1 tablet by mouth daily at bedtime. eletriptan (RELPAX) 20 mg tablet Take 1 tablet by mouth as needed. at the onset of migraine headache. pantoprazole DR (PROTONIX) 20 mg tablet Take 1 tablet by mouth once daily. fluticasone (FLONASE) 50 mcg/actuation nasal spray No current facility-administered medications on file prior to visit. Social History SOCIAL HISTORY[1] Review of Symptoms REVIEW OF SYSTEMS See HPI EXAM: BP 116/84 Pulse 84 Ht 162.4 cm (5' 3.94) Wt 71.2 kg (157 lb) LMP (LMP Unknown) SpO2 99% BMI 27.00 kg/m General Appearance: Well appearing, alert, in no acute distress, well-hydrated, well nourished.. Skin: Skin color, texture, turgor normal, no suspicious rashes or lesions. Lungs: Lungs clear to auscultation. No wheezing, rhonchi, rales.. Heart: RRR without murmur, gallop, or rubs. No ectopy. Extremities: 2-3 cm varicose vein behind right knee on medial aspect without TTP, erythema, induration. No edema or LE swelling noted. Health Maintenance List Meningococcal B Vaccine(1 of 2 - Standard) Never done Hepatitis C Screening Never done HIV Screening Never done GC (Gonorrhea) Screening (18-24) due on 11/16/2022 Chlamydia Screening (18-24) due on 11/16/2022 Cervical Cancer Screening Never done Influenza Vaccine(1) due on 03/18/2025 Annual PCP Team Chronic Disease Visit due on 03/22/2026 DTaP,Tdap,Td Vaccine(8 - Td or Tdap) due on 11/03/2032 Hepatitis B Vaccine Completed HPV Vaccine Completed Asthma Control Test Discontinued Asthma Action Plan Discontinued 1. Asymptomatic varicose veins of right lower extremity (I83.91) - Small, non-tender, non-erythematous varicose vein behind right knee; no evidence of thrombosis or additional varicosities. - No intervention indicated at this time. - Educated patient on typical development of varicose veins and signs of complications (pain, induration, erythema, tenderness); advised to monitor and report any changes. 2. Hypotension, unspecified hypotension type (I95.9) - Occasional low BP readings (as low as 96/84 mmHg) with associated lightheadedness and dizziness, typically postprandial; in-office BPs consistently within normal range. - Recent echocardiogram and Holter monitor normal; tilt table test ordered by Citlali Ceja which is pending. - Advised patient to maintain adequate hydration (at least 5-6 bottles of water daily, more if active) and consume three meals per day. - Instructed to report any increase in frequency or severity of symptoms, or new symptoms such as chest pain or palpitations. - Follow-up after tilt table test results. Issac Fernández MD [1] Social History Tobacco Use Smoking status: Never Smokeless tobacco: Never Vaping Use Vaping status: Never Used Substance Use Topics Alcohol use: Never Drug use: Never documented in this encounter [facility] 03-21-2025 Telephone encounter Note Patient telephoned and notified of providers recommendations below. Voices understanding. Yohana Bird LPN [facility] 03-21-2025 Miscellaneous Notes Patient telephoned and notified of providers recommendations below. Voices understanding. Yohana Bird LPN If lump is increasing in size, becomes tender, arm to touch or she has a fever would recommend either [facility] eval or ER eval if after hours. If develops arm/leg weakness, visual changes, dizziness, lightheadedness, slurred speech, facial drooping or confusion go to ER. Veronica Muse APRN.MILL RECORDER Triage Protocol recommends pt to be seen in next 3 days. Pt agreeable to appt tomorrow morning with Dr. Fernández. Appt made. Will defer to Dr. Fernández for advise. Please call patient if other advise is recommended. Reason for Conversation right knee lump and right leg and right arm tingling Reason for Disposition [1] Small swelling or lump AND [2] unexplained AND [3] present > 1 week Patient calling with initial concern of a soft lump to her inner right knee area, toward the back, about the size of a nickel. She noticed this about 2 weeks ago. She feels it is getting larger over time. Denies injury to knee. Reports lump moves as her knee bends. Reports she has purple vein areas to both of these knee areas, but right knee area has this lump. -reports right alcantara feels tight but no visible swelling -reports right leg and right arm have a weird tingling sensation to it, but she does get these paraesthesias at times, per record, has seen Neuro regarding this -no right leg swelling -no right leg pain -no changes in right leg color or temperature 1. APPEARANCE of SWELLING: as above 2. SIZE: see above 3. LOCATION: as above 4. ONSET: see above 5. COLOR: no change in color 6. PAIN: none 7. ITCH:denies 8. CAUSE: Pt not certain 9 OTHER SYMPTOMS:as above No Additional Information on file. Protocols Used Skin Lump or Localized [id number] -NO Shortness of Breath, chest pain. documented in this encounter [facility] 03-21-2025 Telephone encounter Note If lump is increasing in size, becomes tender, arm to touch or she has a fever would recommend either [facility] eval or ER eval if after hours. If develops arm/leg weakness, visual changes, dizziness, lightheadedness, slurred speech, facial drooping or confusion go to ER. Veronica Muse APRN.SUSANA [facility] 03-21-2025 Telephone encounter Note Triage Protocol recommends pt to be seen in next 3 days. Pt agreeable to appt tomorrow morning with Dr. Fernández. Appt made. Will defer to Dr. Fernández for advise. Please call patient if other advise is recommended. Reason for Conversation right knee lump and right leg and right arm tingling Reason for Disposition [1] Small swelling or lump AND [2] unexplained AND [3] present > 1 week Patient calling with initial concern of a soft lump to her inner right knee area, toward the back, about the size of a nickel. She noticed this about 2 weeks ago. She feels it is getting larger over time. Denies injury to knee. Reports lump moves as her knee bends. Reports she has purple vein areas to both of these knee areas, but right knee area has this lump. -reports right alcantara feels tight but no visible swelling -reports right leg and right arm have a weird tingling sensation to it, but she does get these paraesthesias at times, per record, has seen Neuro regarding this -no right leg swelling -no right leg pain -no changes in right leg color or temperature 1. APPEARANCE of SWELLING: as above 2. SIZE: see above 3. LOCATION: as above 4. ONSET: see above 5. COLOR: no change in color 6. PAIN: none 7. ITCH:denies 8. CAUSE: Pt not certain 9 OTHER SYMPTOMS:as above No Additional Information on file. Protocols Used Skin Lump or Localized [id number] -NO Shortness of Breath, chest pain. [facility] 03-21-2025 Note HNO ID: [id number] Author: MAXINE ELLIS APRN.[facility] Service: ? Author Type: Nurse Practitioner Type: Progress Notes Filed: 03/25/2025 20:50 Note Text: FOLLOW UP - PSYCHIATRIC PROGRESS NOTE Visit Type:Virtual Visit utilizing two-way audio and video for at least a portion of the visit. Consent for virtual visit obtained verbally. Confidentiality limitations with virtual visits reviewed with the patient and guardian, if present, who have accepted the risk verbally prior to proceeding with encounter. I have communicated my name and active licensure. The patient's identity and physical location were verified at the time of this visit. Either the patient or their legal billing customer service representative has been informed of the risks and benefits of -- and alternatives to -- treatment through a remote evaluation and consents to proceed with the evaluation remotely. Recording using HALFP[employer] software for draft documentation of the visit was discussed with the patient/authorized billing customer service representative; all questions welcomed and answered. Patient/authorized billing customer service representative agreed to proceed CC: Outpatient follow-up and safety monitoring of previously prescribed psychiatric medication, psychotherapy or other treatment HPI: Shawanda Brink is a 19-year-old female with a history of anxiety and OCD, presenting for follow-up on medication management. Shawanda reports discontinuing Prozac after five days due to severe side effects, including increased anxiety and a sensation of crawling on my skin, with burning in her arms, legs, ankles, and feet. These symptoms began three days after starting the medication. She has not yet started amitriptyline, as advised by her neurologist to discuss it with her psychiatric provider first. She describes her anxiety as health anxiety, characterized by intrusive thoughts and fears of having various medical conditions, such as a pulmonary embolism, POTS, brain tumor, or stroke. These thoughts are accompanied by a sense of doom and have intensified since August. She frequently uses [employer] and [employer] to research symptoms, which exacerbates her anxiety. She also seeks reassurance from doctors, leading to frequent visits. Shawanda reports somatic symptoms, including a weird heavy tight feeling on the right side of her body and a lump behind her knee. She experiences shortness of breath and has had an echo showing blunted pulmonary flow. She describes her mood as low, feeling irritable and angry, and states that she doesn't even feel like myself anymore. She has a history of OCD symptoms since high school, including repetitive behaviors such as scraping her thumb on her teeth when encountering certain textures. These symptoms have worsened . She also worries about harm coming to her family members, though these thoughts are less frequent than her health-related fears. She is currently at night and is in the process of weaning. 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 She reports that her symptoms often intensify at work and while driving. She has stopped taking magnesium and riboflavin for migraines but is considering restarting them. She occasionally takes a vitamin. She has two young children, ages 1 and 2. Risks and benefits of the medication, including any black box warnings, were discussed with the patient. Interval Progress: Worse PATIENT DATA: Generalized Anxiety Disorder Scale (MARK-7) 10/18/2024 03/05/2025 03/20/2025 MARK - 7 SCORES Score 18 5 19 (0-4) minimal anxiety, (5-9) mild anxiety, (10-14) moderate anxiety, (15-21) severe anxiety Patient Health Questionnaire (PHQ-9) 08/14/2024 10/18/2024 03/05/2025 PHQ-9 Score 12 8 6 (0-4) minimal depression, (5-9) mild depression, (10-14) moderate depression, (15-19) moderately severe depression, (20-27) severe depression PROMIS Global Health 03/20/2024 08/14/2024 03/05/2025 PROMIS Global Health - (T-Scores - the mean of general population = 50. Five points is a clinically meaningful difference.) Physical T-Score 42.3 47.7 50.8 Mental T-Score 36.3 45.8 50.8 PAST MEDICAL HISTORY Diagnosis Date Acne vulgaris 08/18/2015 Anxiety Bipolar 2 disorder (HCC) Cough variant asthma (HCC) 09/27/2016 Depression Migraines PMH - PAST MEDICAL HISTORY OF vascular rose left ankle PAST SURGICAL HISTORY Procedure Laterality Date NONE Current Outpatient Medications Medication Sig Dispense Refill amitriptyline (ELAVIL) 25 mg tablet Take 1 tablet by mouth daily at bedtime. 30 tablet 1 eletriptan (RELPAX) 20 mg tablet Take 1 tablet by mouth as needed. at the onset of migraine headache. [address] (PROTONIX) 20 mg tablet Take 1 tablet by mouth once daily. 30 tablet 0 fluticasone (FLONASE) 50 mcg/actuation nasal spray No current facility-administered medications for this visit. ROS: See HPI PFSH: See HPI VITAL SIGNS: There (more content not included)... [facility] 03-21-2025 History of Presen t illness Narrative Images from the original note were not included. FOLLOW UP - PSYCHIATRIC PROGRESS NOTE Visit Type:Virtual Visit utilizing two-way audio and video for at least a portion of the visit. Consent for virtual visit obtained verbally. Confidentiality limitations with virtual visits reviewed with the patient and guardian, if present, who have accepted the risk verbally prior to proceeding with encounter. I have communicated my name and active licensure. The patient's identity and physical location were verified at the time of this visit. Either the patient or their legal billing customer service representative has been informed of the risks and benefits of -- and alternatives to -- treatment through a remote evaluation and consents to proceed with the evaluation remotely. Recording using HALFP[employer] software for draft documentation of the visit was discussed with the patient/authorized billing customer service representative; all questions welcomed and answered. Patient/authorized billing customer service representative agreed to proceed CC: Outpatient follow-up and safety monitoring of previously prescribed psychiatric medication, psychotherapy or other treatment HPI: Shawanda Brink is a 19-year-old female with a history of anxiety and OCD, presenting for follow-up on medication management. Shawanda reports discontinuing Prozac after five days due to severe side effects, including increased anxiety and a sensation of crawling on my skin, with burning in her arms, legs, ankles, and feet. These symptoms began three days after starting the medication. She has not yet started amitriptyline, as advised by her neurologist to discuss it with her psychiatric provider first. She describes her anxiety as health anxiety, characterized by intrusive thoughts and fears of having various medical conditions, such as a pulmonary embolism, POTS, brain tumor, or stroke. These thoughts are accompanied by a sense of doom and have intensified since August. She frequently uses [employer] and [employer] to research symptoms, which exacerbates her anxiety. She also seeks reassurance from doctors, leading to frequent visits. Shawanda reports somatic symptoms, including a weird heavy tight feeling on the right side of her body and a lump behind her knee. She experiences shortness of breath and has had an echo showing blunted pulmonary flow. She describes her mood as low, feeling irritable and angry, and states that she doesn't even feel like myself anymore. She has a history of OCD symptoms since high school, including repetitive behaviors such as scraping her thumb on her teeth when encountering certain textures. These symptoms have worsened . She also worries about harm coming to her family members, though these thoughts are less frequent than her health-related fears. She is currently at night and is in the process of weaning. 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 She reports that her symptoms often intensify at work and while driving. She has stopped taking magnesium and riboflavin for migraines but is considering restarting them. She occasionally takes a vitamin. She has two young children, ages 1 and 2. Risks and benefits of the medication, including any black box warnings, were discussed with the patient. Interval Progress: Worse PATIENT DATA: Generalized Anxiety Disorder Scale (MARK-7) 10/18/2024 03/05/2025 03/20/2025 MARK - 7 SCORES Score 18 5 19 (0-4) minimal anxiety, (5-9) mild anxiety, (10-14) moderate anxiety, (15-21) severe anxiety Patient Health Questionnaire (PHQ-9) 08/14/2024 10/18/2024 03/05/2025 PHQ-9 Score 12 8 6 (0-4) minimal depression, (5-9) mild depression, (10-14) moderate depression, (15-19) moderately severe depression, (20-27) severe depression PROMIS Global Health 03/20/2024 08/14/2024 03/05/2025 PROMIS Global Health - (T-Scores - the mean of general population = 50. Five points is a clinically meaningful difference.) Physical T-Score 42.3 47.7 50.8 Mental T-Score 36.3 45.8 50.8 PAST MEDICAL HISTORY Diagnosis Date Acne vulgaris 08/18/2015 Anxiety Bipolar 2 disorder (HCC) Cough variant asthma (HCC) 09/27/2016 Depression Migraines PMH - PAST MEDICAL HISTORY OF vascular rose left ankle PAST SURGICAL HISTORY Procedure Laterality Date NONE Current Outpatient Medications Medication Sig Dispense Refill amitriptyline (ELAVIL) 25 mg tablet Take 1 tablet by mouth daily at bedtime. 30 tablet 1 eletriptan (RELPAX) 20 mg tablet Take 1 tablet by mouth as needed. at the onset of migraine headache. [address] (PROTONIX) 20 mg tablet Take 1 tablet by mouth once daily. 30 tablet 0 fluticasone (FLONASE) 50 mcg/actuation nasal spray No current facility-administered medications for this visit. ROS: See HPI PFSH: See HPI VITAL SIGNS: There were no vitals filed for this visit. MENTAL STATUS EXAM: Mental Status Exam General/Sensorium: Alert Orientation: AAOx3 Appearance: Appears stated age and casually dressed Eye contact: Appropriate Demeanor: Appropriately interactive Motor activity: Calm Speech: Articulate with appropriate rhythm and volume Mood: Anxious Affect: Congruent with mood Thought process: Linear, logical, and goal-directed Associations: Normal Thought content: Discussing stressors, future goals or plans and focused on history, symptoms, and management Suicidal ideation: SI: no Plan: no Intent: no Homicidal ideation: HI: no Plan: no Intent: no Abnormal/psychotic thoughts: Absent Perceptions: She does not appear internally stimulated. Attention: Intact Memory: Short-term: Intact Long-term: Intact Language: Intact Fund of knowledge: Appropriate Insight: Improving Judgment: Improving DATA REVIEWED: Imaging - Echocardiogram: Blunted pulmonary flow - MRI Brain: Performed for migraine evaluation Psychiatric scales, Labs, and Electronic medical record ASSESSMENT & PLAN: 1. 1. Mixed obsessional thoughts and acts (F42.2) 2. Moderate episode of recurrent major depressive disorder (HCC) (F33.1) 3. anxiety (HCC) (O99.345) - Significant worsening of health anxiety, intrusive thoughts, and compulsive reassurance-seeking behaviors; history of OCD symptoms since adolescence, exacerbated . - Unable to tolerate multiple SSRIs (Zoloft, Prozac, Lexapro, citalopram) due to side effects. - Start amitriptyline: 10 mg PO at bedtime for 1 week, then increase to 20 mg at bedtime for 1 week; if well-tolerated, increase to 25 mg at bedtime for 4 weeks; discussed potential side effects (sedation, GI upset) and rationale for slow titration. - Advised to avoid compulsive health-related behaviors (Googling symptoms, frequent vitals checks, unnecessary medical appointments); recommended use of external accountability (fianc , trusted colleagues) to support behavioral changes. - Provided education on cognitive techniques to manage intrusive thoughts (visual stop sign, thought journaling). - Encouraged initiation of talk therapy for additional support. - Restart magnesium supplementation for migraine and anxiety support; recommended daily multivitamin and omega-3 fatty acids (1,000-1,200 mg daily, increasing to 2,000-2,400 mg as tolerated). - Follow-up on April 19 at 8:00 AM; instructed to contact sooner with any concerns or side effects. 4. Encounter for long-term (current) use of medications (Z79.899) - Monitor correction side effects related to Amitriptyline. Increase dose as tolerated. - Order monitoring lab work once patient is on a stable dose. Medical Decision Making: Problems: High: Chronic illness with severe change Data: Unique test result(s) reviewed: 3+ Risk: Moderate: Moderate risk from testing/treatment and Drug management Medical Decision Making Level: 4 - Moderate ADD ON PSYCHOTHERAPY CODE : No SIGNATURE: Maxine Ellis APRN.CNP PATIENT NAME: Shawanda Brink DATE: March 21, 2025 TIME: 11:07 AM documented in this encounter [facility] 03-19-2025 Telephone encounter Note Reviewed. Veronica Muse APRN.CNP [facility] 03-19-2025 Miscellaneous Notes Reviewed. Veronica Muse APRN.CNP Patient Update: Pt calling in as advised to discuss her 03/15/25 message in more detail. Patient has no concerning symptoms at this time. Reports she continues with intermittent episodes of headaches and dizziness, along with palpitations and tachycardia at times. which PCP and specialists are aware of. Ongoing for just over a year. States she was told there may be a neurological component and pt saw Neurology on 03/14/25. Per Neuro note: tilt table test ordered, pt to take Replax for abortive migraine therapy and pt to start amitriptyline. Pt to follow up with Neuro in 3 months. -Pt to have telehealth visit with Psychiatry 03/21 due to experiencing side effects from prozac and was told to stop it. -Pt to have Echocardiogram 03/22. -Pt to have stress test 04/19. -Pt to see Dr. Fernández 04/29. Pt offered appt with PCP team, and pt feels this is not needed at this time. States she will plan to attend upcoming appts as scheduled and will call PCP office for any worsening sx's or questions. Pt reminded again to call 911 or proceed to ER for any red flag sx's as dicussed during call. Bela Martinez RN documented in this encounter [facility] 03-16-2025 Telephone encounter Note Patient Update: Pt calling in as advised to discuss her 03/15/25 message in more detail. Patient has no concerning symptoms at this time. Reports she continues with intermittent episodes of headaches and dizziness, along with palpitations and tachycardia at times. which PCP and specialists are aware of. Ongoing for just over a year. States she was told there may be a neurological component and pt saw Neurology on 03/14/25. Per Neuro note: tilt table test ordered, pt to take Replax for abortive migraine therapy and pt to start amitriptyline. Pt to follow up with Neuro in 3 months. -Pt to have telehealth visit with Psychiatry 03/21 due to experiencing side effects from prozac and was told to stop it. -Pt to have Echocardiogram 03/22. -Pt to have stress test 04/19. -Pt to see Dr. Fernández 04/29. Pt offered appt with PCP team, and pt feels this is not needed at this time. States she will plan to attend upcoming appts as scheduled and will call PCP office for any worsening sx's or questions. Pt reminded again to call 911 or proceed to ER for any red flag sx's as dicussed during call. Bela Martinez RN [facility] 03-14-2025 Instructions Citlali Ceja PA-C - 03/14/2025 8:49 AM EDT Start elavil daily for prevention of migraine Take eletriptan 20mg Tilt table and info for pots below Follow up in 3 months POTS Conservative Measures Increased water intake (2-2.5 liters of water daily) Increased salt intake (3-5 grams daily) Compression stockings Cardiac Rehab/ increased Exercise Shared medical appointment with Dr. Duran POTS Manual: Read the POTS manual online. This will help you understand your POTS diagnosis, work with your medical team, and includes detailed instructions and tips for improved daily living with POTS. [email or web address] ots Orthostatic Workout There are videos /playlist/podcast to viewed and helped for exercises and wellness for POTS and Orthostatics Instructions:https://www.Alere [employer] [email or web address]/[email or web address]/[email or web address] fUhDA In your search bar in the internet go type YOU TUBE 2. Search in the YOU TUBE search bar Roger Orthostatic Exercises 3. Select Beginner Introduction Beginner Orthostatic Workout . This is for starting out . 4. As you advance the Beginner Orthostatic Workout may be next step or integrated into the Beginner work out 5. There is a video for breathing exercise to calm the adrenaline and heart rate that you can do independent and often Tips you can watch the video as often you want Subscribe to the video channel for updates Can integrate into the videos into your other fitness regimen May share along this YOU TUBE channel to other POTS patients, family and support people Also follow us along on [employer] account POTSWILSON Also besides the exercise are some nneka mediation videos . Click and watch. Utilize when your adrenaline is active. May even play music to go along. Play the video as often you want to help as an additional tool to reset the adrenaline https://www.Njini.com/watch?v= lPBg3nDrPS6 https://www.youtube.com/watch?v= g5bYpqZ-2lC&feature=youtu.be https://www.youShanda Gamesube.com/watch?v= I1zK2dSrH52 Headache Preventive Treatment: Please keep in mind that it takes 4-6 weeks for the medication to start working well and 2-3 months at the appropriate dose before deciding if it will be useful or not. If it is not helping at all by this time, then we will discuss other medications to try. Supplements may take 3-6 months until you see full effect. Natural supplements: Magnesium Oxide 500 mg at bed Coenzyme Q10 300 mg in AM Vitamin B2- 200 mg twice a day Feverfew 50 mg twice a day Vitamins and herbs that show potential Magnesium: Magnesium (250 mg twice a day or 500 mg at bed) has a relaxant effect on smooth muscles such as blood vessels. Individuals suffering from frequent or daily headache usually have low magnesium levels which can be increase with daily supplementation of 400-750 mg. Three trials found 40-90% average headache reduction when used as a preventative. Magnesium also demonstrated the benefit in menstrually related migraine. Magnesium is part of the messenger system in the serotonin cascade and it is a good muscle relaxant. It is also useful for constipation which can be a side effect of other medications used to treat migraine. Good sources include nuts, whole grains, and tomatoes. Magnesium comes in many different forms: Magnesium glycinate is a good choice for those with a sensitive stomach who have gastrointestinal side effects such as diarrhea with other forms of magnesium. It is anecdotally also helpful with anxiety and sleep. Magnesium threonate also has low risk of gastrointestinal side effects and anecdotally helpful with cognitive function and brain fog symptoms. Magnesium malate has low gastrointestinal side effects and is reportedly more energizing and anecdotally often helpful in fibromyalgia and chronic fatigue syndrome. Magnesium citrate is one of the most studied, popular, and well-absorbed forms of magnesium. It can also be mixed easily with liquids if you can't take pills. However, it comes with a higher risk of diarrhea and gastrointestinal side effects, although this could be helpful for those with constipation. Magnesium oxide is also well studied, cheap, and often used for heartburn and indigestion. However, it is not well absorbed and can have some laxative side effects as well, so can also be helpful for constipation. Riboflavin (vitamin B 2) 200 mg twice a day. This vitamin assists nerve cells in the production of ATP a principal energy storing molecule. It is necessary for many chemical reactions in the body. There have been at least 3 clinical trials of riboflavin using 400 mg per day all of which suggested that migraine frequency can be decreased. All 3 trials showed significant improvement in over half of migraine sufferers. The supplement is found in bread, cereal, milk, meat, and poultry. Most Americans get more riboflavin than the recommended daily allowance, however riboflavin deficiency is not necessary for the supplements to help prevent headache. Feverfew: Feverfew is a common garden herb [place] to [place] and popular in [place] as a treatment for disorders typically controlled by aspirin. The mechanism of action is unknown but is believed to be related to a chemical called parthenolide which helps the body use serotonin more effectively. Serotonin helps prevent migraine and assists with resolution when it occurs. Parthenolide also inhibits the release of histamine which is linked to pain and inflammation. Consistency of active ingredients in different products can be a problem. Some formulations don't have the active ingredient (parthenolide) that prevents migraine. A parthenolide content of 0.2% is generally recommended. Typical dosage is one capsule 3 times a day. Coenzyme Q10: This is present in almost all cells in the body and is critical component for the conversion of energy. Recent studies have shown that a nutritional supplement of CoQ10 can reduce the frequency of migraine attacks by improving the energy production of cells as with riboflavin. Doses of 150 mg twice a day have been shown to be effective. Melatonin: Increasing evidence shows correlation between melatonin secretion and headache conditions. Melatonin supplementation has decreased headache intensity and duration. It is widely used as a sleep aid. Sleep is natures way of dealing with migraine. A dose of 3 mg is recommended to start for headaches including cluster headache. Higher doses up to 15 mg has been reviewed for use in Cluster headache and have been used. The rationale behind using melatonin for cluster is that many theories regarding the cause of Cluster headache center around the disruption of the normal circadian rhythm in the brain. This helps restore the normal circadian rhythm. Vicenta: Vicenta has a small amount of antihistamine and anti-inflammatory action which may help headache. It is primarily used for nausea and may aid in the absorption of other medications. HEADACHE DIET: Foods and beverages which may trigger migraine Note that only 20% of headache patients are food sensitive. You will know if you are food sensitive if you get a headache consistently 20 minutes to 2 hours after eating a certain food. Only cut out a food if it causes headaches, otherwise you might remove foods you enjoy! What matters most for diet is to eat a well balanced healthy diet full of vegetables and low fat protein, and to not miss meals. Chocolate, other sweets ALL cheeses except cottage and cream cheese Dairy products, yogurt, sour cream, ice cream Liver Meat extracts (Bovril, Marmite, meat tenderizers) Meats or fish which have undergone aging, fermenting, pickling or smoking. These include: Hotdogs,salami,Lox,sausage, mortadellas,smoked salmon, pepperoni, Pickled villanueva Pods of broad chacon (Maltese beans, Macedonian pea pods, Thai (sohail) beans, dubois and navy beans Ripe avocado, ripe banana Yeast extracts or active yeast preparations such as Rios's or Barbara's (commercial bakes goods are permitted) Tomato based foods, pizza (lasagna, etc.) MSG (monosodium glutamate) is disguised as many things; look for these common aliases: Monopotassium glutamate Autolysed yeast Hydrolysed protein Sodium caseinate flavorings all natural preservatives Nutrasweet Avoid all other foods that convincingly provoke headaches. Headache Prevention Strategies: 1. Maintain a headache diary; learn to identify and avoid triggers. Common triggers include: Emotional triggers: Emotional/Upset family or friends Emotional/Upset occupation Business reversal/success Anticipation anxiety Crisis-serious Post-crisis periodNew job/position Physical triggers: Vacation Day Weekend Strenuous Exercise High Altitude Location New Move Menstrual Day Physical Illness Oversleep/Not enough sleep Weather changes Light: Photophobia or light sesnitivity treatment involves a balance between desensitization and reduction in overly strong input. Use dark polarized glasses outside, but not inside. Avoid bright or fluorescent light, but do not dim environment to the point that going into a normally lit room hurts. Consider FL-41 tint lenses, which reduce the most irritating wavelengths without blocking too much light. These can be obtained at [employer] or [employer] Foods: see list above. 2. Limit use of acute treatments (ggav-sjh-yxtrpwq medications, triptans, etc.) to no more than 2 days per week or 10 days per month to prevent medication overuse headache (rebound headache). 3. Follow a regular schedule (including weekends and holidays): Don't skip meals. Eat a balanced diet. 8 hours of sleep nightly. Minimize stress. Exercise 30 minutes per day. Being overweight is associated with a 5 times increased risk of chronic migraine. Keep well hydrated and drink 6-8 glasses of water per day. 4. Initiate non-pharmacologic measures at the earliest onset of your headache. Rest and quiet environment. Relax and reduce stress. [id number] is a free pravin that can instruct you on some simple relaxtion and breathing techniques. Http://INPHI is a free website that provides teaching videos on relaxation. Also, there are many apps that can be downloaded for mindful relaxation. An pravin called YOGA NIDRA will help walk you through mindfulness. Cold compresses. 5. Don't wait!! Take the maximum allowable dosage of prescribed medication at the first sign of migraine. 6. Compliance: Take prescribed medication regularly as directed and at the first sign of a migraine. 7. Communicate: Call your physician when problems arise, especially if your headaches change, increase in frequency/severity, or become associated with neurological symptoms (weakness, numbness, slurred speech, etc.). 8. Headache/pain management therapies: Consider various complementary methods, including medication, behavioral therapy, psychological counselling, biofeedback, massage therapy, acupuncture, dry needling, and other modalities. Such measures may reduce the need for medications. Counseling for pain management, where patients learn to function and ignore/minimize their pain, seems to work very well. 9. Recommend changing family's attention and focus away from patient's headaches. Instead, emphasize daily activities. If first question of day is 'How are your headaches/Do you have a headache today?', then patient will constantly think about headaches, thus making them worse. Goal is to re-direct attention away from headaches, toward daily activities and other distractions. 10. Helpful Websites: www.AmericanHeadacheSociety.org www.migrainetrust.org www.headaches.org www.migraine.org.uk www.achenet.org 11. HEADACHE EXPECTATIONS: There are many types of headaches, and only a rare few in which complete relief can be expected. In general, there is no cure for headache, especially migraine based headaches. There is nothing available that completely prevents headaches from occurring, breaking through, or having periodic flare-ups and fluctuations. Regardless of what you are using on a daily basis for prevention, episodic headaches should still be expected, and periods where frequency may escalate and fluctuate are unavoidable. There is no quick fix for most headaches. Furthermore, the longer you have had high frequency headaches (such as chronic daily headache), the longer it will likely take to expect any improvement. In fact, some people will never improve, regardless of how many medications or other treatments we try. Our treatment strategy is to evaluate for possible causes of your headache, although testing is usually always normal, even in cases of daily continuous headaches for years. Most types of headache such as migraine are electrical brain disorders (similar to how epilepsy is an electrical brain disorders). Therefore, there is no testing that will reveal this dysfunctional electrical circuitry such on MRI, or other testing. We try to find a medication that may help lessen the frequency and/or severity of your headaches. The goal is not to completely stop them from happening, although if that happens, great! Different people respond to different medications, and some people just don't respond to anything, so it's usually a matter of trying different options. We can not predict if or when exactly you will respond to a treatment that we provide. Preventive headache medications take 4-6 weeks to start working, and 2-3 months to see full effect, assuming you reach an effective dose. Therefore, calling or messaging frequently because you have a headache flare prior to the 3 month rose is unlikely to change anything, and unfortunately there is nothing available that will expedite this, so please try to avoid this. Our recommendation will generally be to give it adequate time first. If you are unable to wait it out for medications to work, we can also try IV infusions for some temporary relief. O In general, the best that preventive medications or other treatments (including Botox) are able to offer in migraine management (variable in other headache types) is a 50% improvement in frequency and/or severity of headache. That is our goal, and any additional benefit is considered a bonus. Some people do significantly better than this, others do not get close to this. Therefore, if your headaches are not improving by at least 3 months on your preventive strategy, contact us and we can discuss further adjustments. Keep in mind that complete headache cure is not a realistic expectation. Our Team: The nursing staff, and medical assistants are a major part of YOUR TREATMENT TEAM and will be handling your phone calls, [employer] Messages and inquiries, if any. Unless explicitly told otherwise at the time of your office visit, your study results and ensuing treatment plans will be released via [employer] and discussed during your follow-up appointment. MyChart: Please ask the schedulers to give you an activation code. The main way of communication is by [employer] rather than phone lines, so if you have not signed up, please do so. [employer] is also the way that you can review your labs and testing. We are not able to contact everyone to tell them results are normal. If you do not hear back from us regarding testing you have had, it should be considered normal or within normal range. If you have any questions about the results, you are free to message us. [employer] is meant for simple questions regarding medications, possible side effects, or other simple straight forward questions in limited sentences, rather than multiple paragraphs of discussion. [employer] is not meant for, or efficient for these complex questions, extensive questions, extensive medication adjustments, complex new symptoms or concerns. These issues beyond simple questions require a follow up visit with myself, one of our physician assistants, nurse practitioners, or a Virtual Visit via computer or smart phone, as detailed further down. Refills: Please pay attention to when your refills will need to be renewed. Due to the volume of phone calls daily, this could potentially take a few days, although we certainly try to honor your refill requests as soon as we can. You should call at least 1 week in advance of needing a refill to ensure you do not run out of medication. Keep in mind that refill requests on Fridays may not be filled until the following week. In regards to blood work, testing, and radiology reports these are released automatically to the patients. We do not comment on most testing on [email or web address] in a message or commentary unless there is a concern. You will not receive a message from me of the result unless there is a specific concern of the result I need you to address further in care with us or your primary medical team. Make sure to check your my chart email or pravin. As an international referral center for syncope, autonomic dysfunction, general neurology, headache care, neuromuscular disease, and other related conditions, seeing patients from across the world, we do not have the resource of time or staffing to address inquiries for accommodations. As such, we do not provide or complete requests for work accommodations, FMLA, disability, or other such forms. We recommend seeking guidance through your primary care provider for these requests. We are happy to provide our office notes from your visits and other tests or evaluations performed through our clinic, which can be made available upon request to assist you with this process. documented in this encounter [facility] 03-14-2025 Note HNO ID: [id number] Author: CITLALI CEJA PA-C Service: ? Author Type: Physician Belt Loop Maker Type: Progress Notes Filed: 03/14/2025 09:13 Note Text: Neurology Outpatient Clinic Date: March 14, 2025 Patient Name: Shawanda Brink Referring physician: Issac Fernández [address] [facility] [id number] Consult requested for headache by Dr. Fernández. Recommendations will be communicated via shared medical record or US mail. Primary physician: Issac Fernández [address] [place] [address] Reason for Evaluation: Headaches Subjective HPI Shawanda Brink is a 19 year old female who presents for evaluation of headache. Dr. Fernández is the referring physician. Dr. Issac Fernández MD is the PCP. Chart review: Saw PCP on 01/25/25 for migraine. Headaches: - Onset in August, initially 1-2 times/week, increased to 3-5 times/week, now occurring almost daily. - Described as mild, strained headaches, located behind the eyes. - Alleviated by ibuprofen or Tylenol, but recur after 6-8 hours. - Denies current migraine headaches; previously experienced 8-10 severe headaches per month, lasting 3-5 days each. Having some dizziness and paresthesias as well. On imitrex, propranolol and prozac. Having bradycardia stopped BB, started elavil. Ordered MRI brain and was normal. Per patient: Patient presents for evaluation of headaches and dizziness. Ongoing for just over a year since she has had her son over a year ago, January 2024. Notes that she is getting palpitations and tachycardia especially when standing. Occasionally will happen when she is sitting. States that she gets very lightheaded when this happens. Worsens when she gets migraines and aura, notes that she is only gotten 4-5 auras in the last year but has never had aura before. With this she does get very lightheaded and feels as if she is going to pass out, no episodes of syncope. No viral illness that she is aware of around time of onset. Notes that she did have history of migraines before but not dizziness. Prior to having her son she was getting maybe 1 migraine a month, now she is getting 4-5 lasting up to 3 days each. Was given Imitrex but states that she had significant side effects with it so she did not take it. Was prescribed amitriptyline but states she did not start due to the side effects of previous antidepressants in the past. Regarding the dizziness, notes that it isnever fully gone away but again worsens with certain position changes. Does get better when she lays down. Of note, has had anisocoria her whole life. Current Headache treatment Preventative: elavil and prozac Abortive: imitrex Medications effective? no # of doses of abortive medications per month: 0 Previous imaging: MRI brain 01/31/25 IMPRESSION: No evidence of an intracranial acute process. Unremarkable appearance of the cerebral white matter. Previous Medications: Propranolol Prozac Imitrex Elavil Headache Description Onset: 2023 Total headache days per month: 10 per month Total headache attacks per month: 4 per month Headache free days: Yes Duration of attacks: multiple days Severity of headaches? Onset to Peak: gradual Location: Right sided. Aura: 5-6 times Prodrome:urd9qtm, kaleidsecope lasting 30-45 minuhtes . Accompanying symptoms: R eye weakness . Quality:throbbing. Worse with activity: Yes Cough/sneeze/valsalva as trigger: None Positional changes: No Risk Factors Tobacco Use: Yes, vaping Alcohol Use: No Other substances: No Fibromyalgia: No History of Motor Vehicle Accident: No History of Traumatic Brain Injury and/or Concussion: No History of severe infection: No History of Syncope: No Obesity: No, Body mass index is 27 - no Eye doc- just checked two months Family History Migraine or other headaches in the family: grandma and aunt with migraines ROS Review of Systems CONSTITUTIONAL: No reported fevers, chills, night sweats, or significant unintentional weight loss. EYES: No visual changes indicated. No eye pain or orbital swelling reported. HEENT: No hearing changes or vertiginous symptoms indicated. No history of nose bleeds reported. RESPIRATORY: No reported cough, wheezing and dyspnea. CARDIOVASCULAR: Negative for significant chest pain , and palpitations per report. GI: Negative for significant abdominal discomfort , blood in stools or black stools reported. No recent reported change in bowel habits. : No reported history of incontinence. No dark/cola colored urine reported. MUSCLOSKELETAL: No history of significant joint pain or swelling, or myalgias reported. SKIN: Negative for pertinent lesions, rash, and itching per report. HEMATOLOGY/ONCOLOGY: Negative for reported prolonged bleeding, bruising easily, and swollen nodes. ENDOCRINE: Negative for reported (more content not included)... [facility] 03-14-2025 History of Presen t illness Narrative Images from the original note were not included. Neurology Outpatient Clinic Date: March 14, 2025 Patient Name: Shawanda Brink Referring physician: Issac Fernández [address] [phone] Consult requested for headache by Dr. Fernández. Recommendations will be communicated via shared medical record or US mail. Primary physician: [place] [address] Reason for Evaluation: Headaches Subjective HPI Shawanda Brink is a 19 year old female who presents for evaluation of headache. Dr. Fernández is the referring physician. Dr. Issac Fernández MD is the PCP. Chart review: Saw PCP on 01/25/25 for migraine. Headaches: - Onset in August, initially 1-2 times/week, increased to 3-5 times/week, now occurring almost daily. - Described as mild, strained headaches, located behind the eyes. - Alleviated by ibuprofen or Tylenol, but recur after 6-8 hours. - Denies current migraine headaches; previously experienced 8-10 severe headaches per month, lasting 3-5 days each. Having some dizziness and paresthesias as well. On imitrex, propranolol and prozac. Having bradycardia stopped BB, started elavil. Ordered MRI brain and was normal. Per patient: Patient presents for evaluation of headaches and dizziness. Ongoing for just over a year since she has had her son over a year ago, January 2024. Notes that she is getting palpitations and tachycardia especially when standing. Occasionally will happen when she is sitting. States that she gets very lightheaded when this happens. Worsens when she gets migraines and aura, notes that she is only gotten 4-5 auras in the last year but has never had aura before. With this she does get very lightheaded and feels as if she is going to pass out, no episodes of syncope. No viral illness that she is aware of around time of onset. Notes that she did have history of migraines before but not dizziness. Prior to having her son she was getting maybe 1 migraine a month, now she is getting 4-5 lasting up to 3 days each. Was given Imitrex but states that she had significant side effects with it so she did not take it. Was prescribed amitriptyline but states she did not start due to the side effects of previous antidepressants in the past. Regarding the dizziness, notes that it is never fully gone away but again worsens with certain position changes. Does get better when she lays down. Of note, has had anisocoria her whole life. Current Headache treatment Preventative: elavil and prozac Abortive: imitrex Medications effective? no # of doses of abortive medications per month: 0 Previous imaging: MRI brain 01/31/25 IMPRESSION: No evidence of an intracranial acute process. Unremarkable appearance of the cerebral white matter. Previous Medications: Propranolol Prozac Imitrex Elavil Headache Description Onset: 2023 Total headache days per month: 10 per month Total headache attacks per month: 4 per month Headache free days: Yes Duration of attacks: multiple days Severity of headaches? Onset to Peak: gradual Location: Right sided. Aura: 5-6 times Prodrome:[id number], kaleidsecope lasting 30-45 minuhtes . Accompanying symptoms: R eye weakness . Quality:throbbing. Worse with activity: Yes Cough/sneeze/valsalva as trigger: None Positional changes: No Risk Factors Tobacco Use: Yes, vaping Alcohol Use: No Other substances: No Fibromyalgia: No History of Motor Vehicle Accident: No History of Traumatic Brain Injury and/or Concussion: No History of severe infection: No History of Syncope: No Obesity: No, Body mass index is 27 - no Eye doc- just checked two months Family History Migraine or other headaches in the family: grandma and aunt with migraines ROS Review of Systems CONSTITUTIONAL: No reported fevers, chills, night sweats, or significant unintentional weight loss. EYES: No visual changes indicated. No eye pain or orbital swelling reported. HEENT: No hearing changes or vertiginous symptoms indicated. No history of nose bleeds reported. RESPIRATORY: No reported cough, wheezing and dyspnea. CARDIOVASCULAR: Negative for significant chest pain , and palpitations per report. GI: Negative for significant abdominal discomfort , blood in stools or black stools reported. No recent reported change in bowel habits. : No reported history of incontinence. No dark/cola colored urine reported. MUSCLOSKELETAL: No history of significant joint pain or swelling, or myalgias reported. SKIN: Negative for pertinent lesions, rash, and itching per report. HEMATOLOGY/ONCOLOGY: Negative for reported prolonged bleeding, bruising easily, and swollen nodes. ENDOCRINE: Negative for reported significant cold or heat intolerance, no reported goitrous neck swelling or polydipsia PSYCH: No reported depression or anxiety symptoms . No reported SI or HI. NEURO: Per HPI above. Medications: Current Outpatient Medications Medication Sig Dispense Refill FLUoxetine (PROZAC) 20 mg capsule Take 1 capsule by mouth once daily. [address] (PROTONIX) 20 mg tablet Take 1 tablet by mouth once daily. 30 tablet 0 fluticasone (FLONASE) 50 mcg/actuation nasal spray eletriptan (RELPAX) 20 mg tablet Take 1 tablet by mouth as needed. at the onset of migraine headache. 10 tablet 2 amitriptyline (ELAVIL) 10 mg tablet Take 1 tablet by mouth daily at bedtime. 30 tablet 2 No current facility-administered medications for this visit. ROS: Her ROS was positive for that mentioned in the HPI. Otherwise a 10-point ROS was completed and was negative. ALLERGIES Allergen Reactions Celexa [Citalopram] Other: See Comments Tunnel vision Lexapro [Escitalopr* Rash Past Medical History: PAST MEDICAL HISTORY Diagnosis Date Acne vulgaris 08/18/2015 Anxiety Bipolar 2 disorder (HCC) Cough variant asthma (HCC) 09/27/2016 Depression Migraines PMH - PAST MEDICAL HISTORY OF vascular rose left ankle Family History: FAMILY HISTORY Problem Relation Age of Onset Ange Disease Mother other (pulmnary embolism) Father other (mass on liver) Father other (depression and anxiety) Maternal Grandmother Cervical Cancer Maternal Grandmother other ([place]) Maternal Grandfather 49 other (depression and anxiety) Paternal Grandmother Bipolar disorder Paternal Grandmother Anxiety disorder Paternal Grandfather Cancer Other PATERNAL & MATERNAL SIDES Diabetes Other PATERNAL & MATERNAL SIDES other (CLOTTING DISORDER) Other PATERNAL SIDE - FACTOR 5 DISORDER Paternal great aunt Also includes: . Social History:SOCIAL HISTORY[1] Works in [employer]. Objective 03/14/25 0811 03/14/25 0820 03/14/25 0821 Orthostatic BP: 121/83 124/88 122/87 BP Site: Right Arm Right Arm Right Arm BP Position: Supine Sitting Standing BP Cuff Size: Regular Adult Regular Adult Regular Adult Orthostatic Pulse: 67 79 86 Weight: 73.1 kg (161 lb 4.3 oz) Height: 162.4 cm (5' 3.94) Physical Examination General Appearance: Well appearing, alert, in no acute distress, well-hydrated, well nourished. Head: Normocephalic Pulm: Breathing comfortably Neck: Supple Psych: Cooperative, appropriate affect Neurological Examination: Mental Status: Alert and Oriented to Place, Person, Time and Situation and Patient follows commands.. Language: Is intact to Comprehension, Fluency and Repetition Cranial Nerves: CNII: Visual acuity normal, visual josé full to confrontation CNIII, IV, : Pupils round and reactive to light, full extraoccular movements, without nystagmus. Slight anisocoria with right pupil larger than left minimally. CN V: Facial sensation intact bilaterally to fine touch CN VII: Facial muscles symmetric and strong CN VIII: Hears finger rub well bilaterally CN IX: Gag Reflex not examined CN X: Palate elevates symmetrically CN XI: Full strength shoulder shrug bilaterally CN XII: Tongue protrusion full and midline Motor Exam: Tone - Normal Tone noted in all extremities Bulk - Normal bulk noted in all muscles tested. Inspection - Normal, no fasciculations or tremors noted. Power: MUSCLES Upper Extremity RIGHT LEFT Deltoid 5/5 5/5 Biceps 5/5 5/5 Triceps 5/5 5/5 Wrist Extension 5/5 5/5 Wrist Flexion 5/5 5/5 Finger Flexion 5/5 5/5 Finger Extension 5/5 5/5 Finger Abd 5/5 5/5 Finger Add 5/5 5/5 MUSCLES Lower Extremity RIGHT LEFT Hip Flexion 5/5 5/5 Hip Extension 5/5 5/5 BiFem (Knee Flex) 5/5 5/5 Quads (Knee Ext) 5/ 5/5 Gastroc (Plantflx) 5/ 5/5 TibAnt (Dorsiflx) 5/ 5/5 FlxHLong (Toe Flex) 5/ 5/5 ExtHLong (Toe Ext) 5/ 5/5 Sensory Examination Sensation is intact to light touch. Reflexes Right Left Bicep 2/4 2/4 BrRad 2/4 2/4 Knee 2/4 2/4 Ankle 2/4 2/4 Dent Response Negative Negative Coordination: finger-to- nose-finger intact bilaterally and [id number] intact bilaterally. Gait: Patient's gait is normal DATA REVIEWED Actual films/image/tracing reviewed and summarized as follows: MRI brain Old records reviewed and summarized as follows: Primary care Assessment/Plan Assessment & Plan: Shawanda Brink is a 19 year old right-handed female with a history of anxiety, depression, bipolar type II, migraines. Her examination demonstrates mild anisocoria, chronic. Patient with over a year of dizziness and headaches. This started after she had her son in January 2024. Notes history of migraines in the past but states they have changed and worsened since she had her child. Noting at least 4 migraines a month lasting up to 3 days each. Did try Imitrex with no benefit. Was prescribed amitriptyline but did not take it due to previous side effects with antidepressants in the past. Did have an MRI of the brain which was negative, saw her eye doctor a few days ago and also notes her exam was normal. Reporting dizziness as well, primarily positional but is never fully gone away since she had her child a year ago. Orthostatics did show significant increase in heart rate but not meeting criteria for POTS. However, patient notes that after 5 minutes or so it will jump past 30 beats. Discussed a tilt table test the patient is amenable. Discussed conservative therapy for this. For migraines, discussed preventatives, would like to start amitriptyline, discussed this is not an SSRI and may have different side effects, these were discussed at length with patient. Will start at 10 mg and titrate up as needed and tolerated. For abortive relief, patient is currently breast-feeding, discussed using Relpax as this is safer in breast-feeding. Patient amenable, will start Relpax 20 mg take with onset of headache. Encouraged conservative therapy as well. Patient agreeable to treatment plan of care at this time, all questions were answered. Patient to follow-up in 3 months. Shawanda was seen today for chronic migraine and dizziness. Diagnoses and all orders for this visit: Intractable migraine with aura without status migrainosus Positional lightheadedness - TILT TABLE EVALUATION Other orders - eletriptan (RELPAX) 20 mg tablet; Take 1 tablet by mouth as needed. at the onset of migraine headache. All options for treatment discussed. Preventative: Amitriptyline 10 mg Abortive: Relpax 20 mg Tilt table She should return to see me in 3 months. I spent a total of 60 minutes on the date of the service which included preparing to see the patient, [id number] patient care, completing clinical documentation, obtaining and/or reviewing separately obtained history, performing a medically appropriate examination, counseling and educating the patient/family/caregiver, and ordering medications, tests, or procedures. Citlali Ceja PA-C [facility] Neurology This document has been created with the use of voice recognition technology. It may contain inaccuracies: (e.g. misspellings, inaccurate syntax or word sense) that have escaped review. [1] Social History Tobacco Use Smoking status: Never Smokeless tobacco: Never Vaping Use Vaping status: Never Used Substance Use Topics Alcohol use: Never Drug use: Never documented in this encounter [facility] 03-11-2025 Telephone encounter Note Call placed to patient and notified of below with verbalized understanding. Mark Fan RN [facility] 03-11-2025 Miscellaneous Notes Call placed to patient and notified of below with verbalized understanding. Mark Fan RN Orders for A1c placed. Please let patient know she can come and complete at her convenience. Veronica Muse APRN.CNP Patient calls to ask if provider would order a HGBA1C as she was going to ask at appointment earlier today and forgot. She had gestational diabetes and would like to have it checked. She saw endocrinology previously but reports they would need an appointment before ordering blood work. Please review and advise, Mark Fan RN documented in this encounter [facility] 03-11-2025 Telephone encounter Note Orders for A1c placed. Please let patient know she can come and complete at her convenience. Veronica Muse APRN.CNP [facility] 03-08-2025 Telephone encounter Note Patient calls to ask if provider would order a HGBA1C as she was going to ask at appointment earlier today and forgot. She had gestational diabetes and would like to have it checked. She saw endocrinology previously but reports they would need an appointment before ordering blood work. Please review and adviseMark RN [facility] 03-08-2025 Telephone encounter Note Call placed to pt, provider instructions given, pt voices understanding. Queta Mccarty LPN [facility] 03-08-2025 Miscellaneous Notes Call placed to pt, provider instructions given, pt voices understanding. Queta Mccarty LPN Please tell the patient to stop taking the Prozac due the side effect. Schedule her for a sooner appointment with this provider. You can offer her a virtual visit on 03/21 at 11 am as she is a women's health patient. Patient calling to give Maxine Ellis CNP an update and ask for advise. Pt had Teleheath visit with Maxine on 10/18/2024. Pt was on Zoloft at that time and not tolerating it well. Pt was in agreement to start Prozac instead, to address mood and anxiety sx's. Due to reasons, pt states she did not start the Prozac then. Pt decided to start the Prozac about 4 days ago. Takes it in the mornings. Reports yesterday, after her 3rd dose, she experienced more anxiety and last night she felt like I was crawling out of my skin. Did not sleep well last night. Pt states she has tried several other similar medications in past and have experienced similar side effects with those as well. Denies any rashes, breathing changes, N/V, SI/HI or any other sx's. No severe sx's. Pt has not taken this morning's dose. Will await provider's advise. Bela Martinez RN documented in this encounter [facility] 03-08-2025 Telephone encounter Note Please tell the patient to stop taking the Prozac due the side effect. Schedule her for a sooner appointment with this provider. You can offer her a virtual visit on 03/21 at 11 am as she is a women's health patient. T [facility] 03-08-2025 Telephone encounter Note Patient calling to give Maxine Ellis CNP an update and ask for advise. Pt had Teleheath visit with Maxine on 10/18/2024. Pt was on Zoloft at that time and not tolerating it well. Pt was in agreement to start Prozac instead, to address mood and anxiety sx's. Due to reasons, pt states she did not start the Prozac then. Pt decided to start the Prozac about 4 days ago. Takes it in the mornings. Reports yesterday, after her 3rd dose, she experienced more anxiety and last night she felt like I was crawling out of my skin. Did not sleep well last night. Pt states she has tried several other similar medications in past and have experienced similar side effects with those as well. Denies any rashes, breathing changes, N/V, SI/HI or any other sx's. No severe sx's. Pt has not taken this morning's dose. Will await provider's advise. Bela Martinez RN T [facility] 03-05-2025 Telephone encounter Note Last: 10/18/24 TREATMENT PLAN: Discontinue Zoloft due to lack of benefit at lower dose and lack of tolerability at higher dose. Start Prozac 20 mg to address mood and anxiety symptoms. Restart individual psychotherapy to discuss the increase in relationship based stress. Follow up in 5 weeks as scheduled. 11/22/24 No show Next: PHYLLIS msg sent to schedule [facility] 03-05-2025 Miscellaneous Notes Last: 10/18/24 TREATMENT PLAN: Discontinue Zoloft due to lack of benefit at lower dose and lack of tolerability at higher dose. Start Prozac 20 mg to address mood and anxiety symptoms. Restart individual psychotherapy to discuss the increase in relationship based stress. Follow up in 5 weeks as scheduled. 11/22/24 No show Next: [facility] msg sent to schedule documented in this encounter [facility] 03-05-2025 Note HNO ID: [id number] Author: VERONICA MUSE APRN.MILL RECORDER Service: ? Author Type: Nurse Practitioner Type: Progress Notes Filed: 03/05/2025 11:27 Note Text: 03/05/2025 Patient presents with: Physical Recording using HALFPOPS software for draft documentation of the visit was discussed with the patient/authorized billing customer service representative; all questions welcomed and answered. Patient/authorized billing customer service representative agreed to proceed SUBJECTIVE: This is a 19 year old that is here today for Above Complaints.. : - Currently ; attempting to stop. Anxiety: - Has not started prescribed Prozac; expresses nervousness about taking SSRIs. - Believes anxiety may contribute to symptoms. Migraines: - Taking sumatriptan PRN. - Recent MRI showed fluid in left mastoid air cell. - Referred to ENT for evaluation. Asthma: - History of sports-induced asthma; no inhaler use since high school. GERD: - Recently started on pantoprazole. - Reports worsening symptoms post-strep throat. PAST MEDICAL HISTORY Diagnosis Date Acne vulgaris 08/18/2015 Anxiety Bipolar 2 disorder (HCC) Cough variant asthma (HCC) 09/27/2016 Depression Migraines PMH - PAST MEDICAL HISTORY OF vascular rose left ankle ALLERGIES Celexa [Citalopram] and Lexapro [Escitalopram] MEDICATIONS Current Outpatient Medications Medication Sig pantoprazole DR (PROTONIX) 20 mg tablet Take 1 tablet by mouth once daily. fluticasone (FLONASE) 50 mcg/actuation nasal spray amitriptyline (ELAVIL) 10 mg tablet Take 1 tablet by mouth daily at bedtime. SUMAtriptan (IMITREX) 50 mg tablet Take 1 tablet by mouth as needed for migraine headache (see administration instructions). May repeat dose after 2 hours if needed. Maximum daily dose is 200 mg per day. FLUoxetine (PROZAC) 20 mg capsule Take 1 capsule by mouth once daily. (Patient not taking: Reported on 03/03/2025) No current facility-administered medications for this visit. Medications and allergies reviewed by this provider. SOCIAL HISTORY SOCIAL HISTORY[1] REVIEW OF SYSTEMS GENERAL: No weight loss, malaise or fevers HEENT: No changes in hearing or vision, no nose bleeds or other nasal problems NECK: Negative for lumps, goiter, and significant neck swelling RESPIRATORY: Negative for cough, hemoptysis, wheezing, COPD, dyspnea or shortness of breath CARDIOVASCULAR: Negative for chest pain, leg swelling, hypertension, CHF or palpitations GI: No nausea, vomiting, or diarrhea : No history of dysuria, frequency or incontinence CORPORATE PILOT: Negative for abnormal vaginal bleeding, abnormal vaginal discharge MUSCULOSKELETAL: Negative for joint pain or swelling, back pain or muscle pain SKIN: Negative for lesions, rash, and itching PSYCH: Negative for sleep disturbance, and recent psychosocial stressors, HEMATOLOGY/LYMPHOLOGY: Negative for prolonged bleeding, bruising easily or swollen nodes ENDOCRINE: Negative for cold or heat intolerance, polyuria, polydipsia and goiter NEURO: No history of syncope, paralysis, seizures or tremors All other reviewed and negative other than HPI. OBJECTIVE: BP 106/74 Pulse 82 Resp 18 Ht 162.4 cm (5' 3.94) Wt 74.4 kg (164 lb) LMP 11/04/2021 (Exact Date) SpO2 98% BMI 28.21 kg/m? . Vital signs reviewed by this provider. GENERAL: NAD, alert and oriented SKIN: unremarkable, no rash or skin lesions to exposed skin EYES: conjunctiva clear EARS: external ears normal, canals clear, TM's normal. NOSE/SINUSES: Nares normal. Septum midline. OROPHARYNX: lips, mucosa, and tongue normal, good dentition. No oral lesions noted. NECK: Supple, no lymphadenopathy, normal thyroid, no carotid bruits. LUNGS: Clear to auscultation bilaterally, no wheezes/rhonchi/rales. HEART: Regular rate and rhythm, no murmurs. No ectopy. EXTREMITIES: Normal, No deformities, No skin discoloration, No edema. NEURO: Awake, alert and oriented x3, cranial nerves II-XII grossly intact, normal gait, no involuntary motions FROM in all joints Latest Ref Rng 02/14/2025 02/18/2025 WBC 3.70 - 11.00 k/uL 5.98 RBC 3.90 - 5.20 m/uL 4.89 Hemoglobin 11.5 - 15.5 g/dL 14.3 Hematocrit 36.0 - 46.0 % 41.4 MCV 80.0 - 100.0 fL 84.7 MCH 26.0 - 34.0 pg 29.2 MCHC 30.5 - 36.0 g/dL 34.5 RDW-CV 11.5 - 15.0 % 12.0 Platelet Count 150 - 400 k/uL 304 MPV 9.0 - 12.7 fL 10.5 Neut% % 52.8 Abs Neut (ANC) 1.45 - 7.50 k/uL 3.15 Lymph% % 41.3 Abs Lymph 1.00 - 4.00 k/uL 2.47 Ingham% % 3.8 Abs Ingham <0.87 k/uL 0.23 Eosin% % 1.3 Abs Eosin <0.46 k/uL 0.08 Baso% % 0.5 Abs Baso <0.11 k/uL 0.03 Immature Gran % % 0.3 IMMATURE GRANS (ABS) <0.10 k/uL <0.03 NRBC /100 WBC 0.0 Absolute nRBC <0.01 k/uL <0.01 DTYPE Auto Protein, Total 6.3 - 8.0 g/dL 7.5 Albumin 3.9 - 4.9 g/dL 4.5 Calcium 8.5 - 10.2 mg/dL 9.6 Bilirubin, Total 0.2 - 1.3 mg/dL 0.3 Alkaline Phosphatase 34 - 123 U/L 90 AST 13 - 35 U/L 15 ALT 7 - 38 U/L 14 Glucose 74 - 99 mg/dL 72 (L) (more content not included)... [facility] 03-05-2025 History of Presen t illness Narrative 03/05/2025 Patient presents with: Physical Recording using HALFPOPS software for draft documentation of the visit was discussed with the patient/authorized billing customer service representative; all questions welcomed and answered. Patient/authorized billing customer service representative agreed to proceed SUBJECTIVE: This is a 19 year old that is here today for Above Complaints.. : - Currently ; attempting to stop. Anxiety: - Has not started prescribed Prozac; expresses nervousness about taking SSRIs. - Believes anxiety may contribute to symptoms. Migraines: - Taking sumatriptan PRN. - Recent MRI showed fluid in left mastoid air cell. - Referred to ENT for evaluation. Asthma: - History of sports-induced asthma; no inhaler use since high school. GERD: - Recently started on pantoprazole. - Reports worsening symptoms post-strep throat. PAST MEDICAL HISTORY Diagnosis Date Acne vulgaris 08/18/2015 Anxiety Bipolar 2 disorder (HCC) Cough variant asthma ([facility]) 09/27/2016 Depression Migraines PMH - PAST MEDICAL HISTORY OF vascular rose left ankle ALLERGIES Celexa [Citalopram] and Lexapro [Escitalopram] MEDICATIONS Current Outpatient Medications Medication Sig pantoprazole DR (PROTONIX) 20 mg tablet Take 1 tablet by mouth once daily. fluticasone (FLONASE) 50 mcg/actuation nasal spray amitriptyline (ELAVIL) 10 mg tablet Take 1 tablet by mouth daily at bedtime. SUMAtriptan (IMITREX) 50 mg tablet Take 1 tablet by mouth as needed for migraine headache (see administration instructions). May repeat dose after 2 hours if needed. Maximum daily dose is 200 mg per day. FLUoxetine (PROZAC) 20 mg capsule Take 1 capsule by mouth once daily. (Patient not taking: Reported on 03/03/2025) No current facility-administered medications for this visit. Medications and allergies reviewed by this provider. SOCIAL HISTORY SOCIAL HISTORY[1] REVIEW OF SYSTEMS GENERAL: No weight loss, malaise or fevers HEENT: No changes in hearing or vision, no nose bleeds or other nasal problems NECK: Negative for lumps, goiter, and significant neck swelling RESPIRATORY: Negative for cough, hemoptysis, wheezing, COPD, dyspnea or shortness of breath CARDIOVASCULAR: Negative for chest pain, leg swelling, hypertension, CHF or palpitations GI: No nausea, vomiting, or diarrhea : No history of dysuria, frequency or incontinence CORPORATE PILOT: Negative for abnormal vaginal bleeding, abnormal vaginal discharge MUSCULOSKELETAL: Negative for joint pain or swelling, back pain or muscle pain SKIN: Negative for lesions, rash, and itching PSYCH: Negative for sleep disturbance, and recent psychosocial stressors, HEMATOLOGY/LYMPHOLOGY: Negative for prolonged bleeding, bruising easily or swollen nodes ENDOCRINE: Negative for cold or heat intolerance, polyuria, polydipsia and goiter NEURO: No history of syncope, paralysis, seizures or tremors All other reviewed and negative other than HPI. OBJECTIVE: BP 106/74 Pulse 82 Resp 18 Ht 162.4 cm (5' 3.94) Wt 74.4 kg (164 lb) LMP 11/04/2021 (Exact Date) SpO2 98% BMI 28.21 kg/m . Vital signs reviewed by this provider. GENERAL: NAD, alert and oriented SKIN: unremarkable, no rash or skin lesions to exposed skin EYES: conjunctiva clear EARS: external ears normal, canals clear, TM's normal. NOSE/SINUSES: Nares normal. Septum midline. OROPHARYNX: lips, mucosa, and tongue normal, good dentition. No oral lesions noted. NECK: Supple, no lymphadenopathy, normal thyroid, no carotid bruits. LUNGS: Clear to auscultation bilaterally, no wheezes/rhonchi/rales. HEART: Regular rate and rhythm, no murmurs. No ectopy. EXTREMITIES: Normal, No deformities, No skin discoloration, No edema. NEURO: Awake, alert and oriented x3, cranial nerves II-XII grossly intact, normal gait, no involuntary motions FROM in all joints Latest Ref Rng 02/14/2025 02/18/2025 WBC 3.70 - 11.00 k/uL 5.98 RBC 3.90 - 5.20 m/uL 4.89 Hemoglobin 11.5 - 15.5 g/dL 14.3 Hematocrit 36.0 - 46.0 % 41.4 MCV 80.0 - 100.0 fL 84.7 MCH 26.0 - 34.0 pg 29.2 MCHC 30.5 - 36.0 g/dL 34.5 RDW-CV 11.5 - 15.0 % 12.0 Platelet Count 150 - 400 k/uL 304 MPV 9.0 - 12.7 fL 10.5 Neut% % 52.8 Abs Neut (ANC) 1.45 - 7.50 k/uL 3.15 Lymph% % 41.3 Abs Lymph 1.00 - 4.00 k/uL 2.47 Ingham% % 3.8 Abs Ingham <0.87 k/uL 0.23 Eosin% % 1.3 Abs Eosin <0.46 k/uL 0.08 Baso% % 0.5 Abs Baso <0.11 k/uL 0.03 Immature Gran % % 0.3 IMMATURE GRANS (ABS) <0.10 k/uL <0.03 NRBC /100 WBC 0.0 Absolute nRBC <0.01 k/uL <0.01 DTYPE Auto Protein, Total 6.3 - 8.0 g/dL 7.5 Albumin 3.9 - 4.9 g/dL 4.5 Calcium 8.5 - 10.2 mg/dL 9.6 Bilirubin, Total 0.2 - 1.3 mg/dL 0.3 Alkaline Phosphatase 34 - 123 U/L 90 AST 13 - 35 U/L 15 ALT 7 - 38 U/L 14 Glucose 74 - 99 mg/dL 72 (L) BUN 7 - 21 mg/dL 11 Creatinine 0.58 - 0.96 mg/dL 0.71 Sodium 136 - 144 mmol/L 139 Potassium 3.7 - 5.1 mmol/L 4.1 Chloride 98 - 107 mmol/L 101 CO2 22 - 30 mmol/L 25 Anion Gap 8 - 15 mmol/L 13 eGFR >=60 mL/min/1.73m 124 T3 79 - 165 ng/dL 109 Free T4 0.9 - 1.7 ng/dL 1.3 THYROID PEROXIDASE ANTIBODY <5.6 IU/mL <3.0 Meningococcal B Vaccine(1 of 2 - Standard) Never done Hepatitis C Screening Never done HIV Screening Never done GC (Gonorrhea) Screening (18-24) due on 11/16/2022 Chlamydia Screening (18-24) due on 11/16/2022 Cervical Cancer Screening Never done Influenza Vaccine(1) due on 03/18/2025 Annual PCP Team Chronic Disease Visit due on 03/05/2026 DTaP,Tdap,Td Vaccine(8 - Td or Tdap) due on 11/03/2032 Hepatitis B Vaccine Completed HPV Vaccine Completed Asthma Control Test Discontinued Asthma Action Plan Discontinued 1. Annual physical exam (Z00.00) - normal exa - No restrictions noted for standing, walking, sitting, lifting, bending, twisting, pushing or pulling loads, reaching overhead, kneeling, or climbing stairs. - follow-up yearly 2. Screening-pulmonary TB (Z11.1) - TB test ordered. 3. Gastroesophageal reflux disease, unspecified whether esophagitis present (K21.9) - Continue pantoprazole. 4. Migraine without aura, not intractable, without status migrainosus (G43.009) - Continue sumatriptan as needed. - MRI showed no evidence of intracranial pathology; fluid noted in left mastoid air cell. - ENT referral made due to fluid in left ear. - Follow-up with neurologist next week. 5. Anxiety disorder, unspecified type (F41.9) - Start Prozac. - Discussed concerns about starting SSRIs. - Continue amitriptyline. - follow-up as needed Veronica Muse APRN.MILL RECORDER Prescription instructions reviewed with patient as applicable. Patient advised if symptoms do not improve or if symptoms worsen sooner, to contact their primary care physician. Potential red flag symptoms discussed with the patient. Reviewed appropriate action plan to take if red flag symptoms occur. Patient agreeable to treatment plan. [1] Social History Tobacco Use Smoking status: Never Smokeless tobacco: Never Vaping Use Vaping status: Never Used Substance Use Topics Alcohol use: Never Drug use: Never documented in this encounter [facility] 03-03-2025 Note HNO ID: [id number] Author: ROHAN VILLALBA APRN.SUSANA Service: ? Author Type: Nurse Practitioner Type: Progress Notes Filed: 03/03/2025 15:08 Note Text: [facility] Ayse Shawanda Brink is a 19 year old female. Patient presents with: Throat Problem: Pt states she has lump feeling in throat, aching hoarseness, x 3 weeks HPI Throat Discomfort and Hoarseness: - Sensation of a lump in the throat, x4 days prior to strep diagnosis. - Intermittent hoarseness. - No odynophagia. - Occasional aching and throbbing sensation when inhaling. - Symptoms are variable, with some days being worse than others. - History of acid reflux during ; denies current . Recent Strep Throat: - Diagnosed with strep throat on the . - Prescribed amoxicillin 500 mg; missed two doses. - Improvement in sore throat and dizziness, though mild dizziness persists. - Changed toothbrush, toothpaste, mouthwash, and chapsticks post-treatment. - Reports a weird taste in the mouth. - Initial symptoms included a stiff neck, which has worsened. Review of Systems Neck: (+) neck stiffness Ears/Nose/Mouth/Throat: (+) foreign body sensation in throat, (+) hoarseness, (+) throat pain with inspiration, (+) dysgeusia, (-) odynophagia Neurological: (+) dizziness Objective BP 120/78 Pulse 76 Temp 36.4 ?C (97.6 ?F) Resp 20 Wt 74 kg (163 lb 2.3 oz) LMP 11/04/2021 (Exact Date) SpO2 100% Yes BMI 27.28 kg/m? Physical Exam General: No acute distress. HEENT: Pharynx erythematous, no abscesses noted; tympanic membranes normal bilaterally. Resp: Lungs clear to auscultation bilaterally. { 1. Sore throat (J02.9) - Recent history of strep pharyngitis diagnosed on the ; treated with amoxicillin 500 mg, but course was not completed as prescribed. - Persistent symptoms include globus sensation, hoarseness, and intermittent throat discomfort; strep test today was negative. - Possible etiology of symptoms is acid reflux. - Start Protonix once daily. - ENT referral for further evaluation. - Patient agreeable to care plan. and Recording using [employer] software for draft documentation of the visit was discussed with the patient/authorized billing customer service representative; all questions welcomed and answered. Patient/authorized billing customer service representative agreed to proceed MDM Procedures [facility] 03-03-2025 History of Presen t illness Narrative [facility] Tavera Shawanda Brink is a 19 year old female. Patient presents with: Throat Problem: Pt states she has lump feeling in throat, aching hoarseness, x 3 weeks HPI Throat Discomfort and Hoarseness: - Sensation of a lump in the throat, x4 days prior to strep diagnosis. - Intermittent hoarseness. - No odynophagia. - Occasional aching and throbbing sensation when inhaling. - Symptoms are variable, with some days being worse than others. - History of acid reflux during ; denies current . Recent Strep Throat: - Diagnosed with strep throat on the . - Prescribed amoxicillin 500 mg; missed two doses. - Improvement in sore throat and dizziness, though mild dizziness persists. - Changed toothbrush, toothpaste, mouthwash, and chapsticks post-treatment. - Reports a weird taste in the mouth. - Initial symptoms included a stiff neck, which has worsened. Review of Systems Neck: (+) neck stiffness Ears/Nose/Mouth/Throat: (+) foreign body sensation in throat, (+) hoarseness, (+) throat pain with inspiration, (+) dysgeusia, (-) odynophagia Neurological: (+) dizziness Objective BP 120/78 Pulse 76 Temp 36.4 C (97.6 F) Resp 20 Wt 74 kg (163 lb 2.3 oz) LMP 11/04/2021 (Exact Date) SpO2 100% Yes BMI 27.28 kg/m Physical Exam General: No acute distress. HEENT: Pharynx erythematous, no abscesses noted; tympanic membranes normal bilaterally. Resp: Lungs clear to auscultation bilaterally. { 1. Sore throat (J02.9) - Recent history of strep pharyngitis diagnosed on the ; treated with amoxicillin 500 mg, but course was not completed as prescribed. - Persistent symptoms include globus sensation, hoarseness, and intermittent throat discomfort; strep test today was negative. - Possible etiology of symptoms is acid reflux. - Start Protonix once daily. - ENT referral for further evaluation. - Patient agreeable to care plan. and Recording using [employer] software for draft documentation of the visit was discussed with the patient/authorized billing customer service representative; all questions welcomed and answered. Patient/authorized billing customer service representative agreed to proceed MDM Procedures documented in this encounter [facility] 02-22-2025 Telephone encounter Note Patient was unaware when they scheduled her appointment it was [place]. Patient was in [place] [facility] waiting area after being checked in for appointment by [facility]. Assisted rescheduling patient for [place]. Tessy Chow LPN [facility] 02-22-2025 Miscellaneous Notes Patient was unaware when they scheduled her appointment it was [place]. Patient was in [place] [facility] waiting area after being checked in for appointment by [facility]. Assisted rescheduling patient for [place]. Tessy Chow LPN documented in this encounter [facility] 02-18-2025 Telephone encounter Note Naddana with [employer] called wanting the billing codes for the lab work Pt was getting done today. I gave her the diagnosis code Z83.49, and the lab names Thyroid Peroxidase Antibody, T4 Free/Free Thyroxine, and T3. Since I didn't know the billing code. Keli Myers, SHERLY [facility] 02-18-2025 Miscellaneous Notes Naddana with [employer] called wanting the billing codes for the lab work Pt was getting done today. I gave her the diagnosis code Z83.49, and the lab names Thyroid Peroxidase Antibody, T4 Free/Free Thyroxine, and T3. Since I didn't know the billing code. Keli Myers, SHERLY documented in this encounter [facility] 02-18-2025 Miscellaneous Notes Please review pt message and advise. Dina Monroe MA documented in this encounter [facility] 02-18-2025 Telephone encounter Note Please review pt message and advise. Dina Monroe MA [facility] 02-14-2025 Note HNO ID: [id number] Author: JAMAL CORTEZ APRN.MILL RECORDER Service: ? Author Type: Nurse Practitioner Type: Progress Notes Filed: 02/14/2025 19:09 Note Text: [facility] Subjective Shawanda Brink is a 19 year old female. Patient presents with: Sore Throat: Fever, AKERS, neck pain, pressure in ears and dizziness x8 days HPI Nontoxic-appearing female presents urgent care chief complaint not feeling well. States has had intermittent headaches neck pain ear pressure sore throat and fever. Was seen at urgent care initially and diagnosed with otitis media. Placed on Augmentin. Did take that for 2 days. Was seen in the ED the following day. Was told she did not have ear infection and can discontinue antibiotic. 2 days later she followed up at this urgent care. Diagnosed with strep throat. Had a fever 102 at that point. This is day 5 of amoxicillin. States she still has a sore throat and is not feeling well. Has some intermittent dizziness. States dizziness is not new for her has had this for quite some time is being evaluated by PCP for dizziness. Denies any chest pain shortness of breath productive cough pleuritic pain nausea vomiting abdominal pain. Denies chance of . Is currently breast-feeding 1-year-old. Denies any difficulty swallowing handle secretions decreased range of motion of neck or trismus. Past medical history prescription medications allergies reviewed Review of Systems Constitutional: Positive for fatigue and fever. Negative for chills and diaphoresis. HENT: Positive for sore throat. Negative for congestion, drooling, ear discharge, ear pain, rhinorrhea, sinus pressure, sinus pain, sneezing, trouble swallowing and voice change. Eyes: Negative for pain, discharge, redness, itching and visual disturbance. Respiratory: Negative for cough, chest tightness, shortness of breath and wheezing. Cardiovascular: Negative for chest pain. Gastrointestinal: Negative for abdominal distention, abdominal pain, blood in stool, constipation, diarrhea, nausea and vomiting. Genitourinary: Negative for difficulty urinating and dysuria. Musculoskeletal: Negative for arthralgias, joint swelling, neck pain and neck stiffness. Skin: Negative for rash. Neurological: Positive for dizziness and headaches. Negative for weakness and numbness. Objective BP 135/85 Pulse 87 Temp 36.3 ?C (97.3 ?F) Resp 18 Wt 75.6 kg (166 lb 10.7 oz) LMP 11/04/2021 SpO2 98% BMI 27.87 kg/m? Physical Exam Constitutional: Appearance: Normal appearance. HENT: Head: Normocephalic. Jaw: No trismus, tenderness, swelling or pain on movement. Right Ear: Tympanic membrane, ear canal and external ear normal. Left Ear: Tympanic membrane, ear canal and external ear normal. Nose: No congestion. Mouth/Throat: Mouth: Mucous membranes are moist. Pharynx: Oropharynx is clear. Uvula midline. No oropharyngeal exudate or posterior oropharyngeal erythema. Eyes: Conjunctiva/sclera: Conjunctivae normal. Cardiovascular: Rate and Rhythm: Normal rate. Pulmonary: Effort: Pulmonary effort is normal. Breath sounds: Normal breath sounds. No wheezing, rhonchi or rales. Abdominal: Palpations: Abdomen is soft. Tenderness: There is no abdominal tenderness. There is no guarding or rebound. Musculoskeletal: General: Normal range of motion. Cervical back: Normal range of motion and neck supple. No edema, erythema or rigidity. No pain with movement. Normal range of motion. Lymphadenopathy: Cervical: Cervical adenopathy present. Skin: General: Skin is warm. Findings: No rash. Neurological: General: No focal deficit present. Mental Status: She is alert and oriented to person, place, and time. Mental status is at baseline. {ASSESSMENT/PLAN: 1. Pharyngitis, unspecified etiology - ICD9: 462, ICD10: J02.9 (primary diagnosis) - MONOTEST, INFECTIOUS MONO - COMPLETE BLOOD COUNT AND DIFFERENTIAL - COMPREHENSIVE METABOLIC PANEL 2. Viral illness - ICD9: 079.99, ICD10: B34.9 Diagnosis pharyngitis. Will test for mono due to persistent sore throat and fevers. CBC and CMP was ordered as well due to persistent illness. New viral illness versus prolonged bacterial infection. At this time suspicious for new viral illness. Patient was encouraged to follow-up with PCP 2 to 3 days for reevaluation. Patient was educated on supportive therapies. Patient will follow up with primary care provider as needed. Patient was instructed to immediately proceed to emergency room for any new, worsening, or symptoms lasting longer than anticipated. The patient's clinical presentation is otherwise unremarkable at this time. Based on exam and clinical finding, the patient is stable for discharge. Plan of care was discussed with patient. Patient verbalizes understanding and agrees to plan of care. This note was generated using [employer]Central software. It may contain errors in wording, punctuation, or (more content not included)... [facility] 02-14-2025 History of Presen t illness Narrative [facility] Brink is a 19 year old female. Patient presents with: Sore Throat: Fever, AKERS, neck pain, pressure in ears and dizziness x8 days HPI Nontoxic-appearing female presents urgent care chief complaint not feeling well. States has had intermittent headaches neck pain ear pressure sore throat and fever. Was seen at urgent care initially and diagnosed with otitis media. Placed on Augmentin. Did take that for 2 days. Was seen in the ED the following day. Was told she did not have ear infection and can discontinue antibiotic. 2 days later she followed up at this urgent care. Diagnosed with strep throat. Had a fever 102 at that point. This is day 5 of amoxicillin. States she still has a sore throat and is not feeling well. Has some intermittent dizziness. States dizziness is not new for her has had this for quite some time is being evaluated by PCP for dizziness. Denies any chest pain shortness of breath productive cough pleuritic pain nausea vomiting abdominal pain. Denies chance of . Is currently breast-feeding 1-year-old. Denies any difficulty swallowing handle secretions decreased range of motion of neck or trismus. Past medical history prescription medications allergies reviewed Review of Systems Constitutional: Positive for fatigue and fever. Negative for chills and diaphoresis. HENT: Positive for sore throat. Negative for congestion, drooling, ear discharge, ear pain, rhinorrhea, sinus pressure, sinus pain, sneezing, trouble swallowing and voice change. Eyes: Negative for pain, discharge, redness, itching and visual disturbance. Respiratory: Negative for cough, chest tightness, shortness of breath and wheezing. Cardiovascular: Negative for chest pain. Gastrointestinal: Negative for abdominal distention, abdominal pain, blood in stool, constipation, diarrhea, nausea and vomiting. Genitourinary: Negative for difficulty urinating and dysuria. Musculoskeletal: Negative for arthralgias, joint swelling, neck pain and neck stiffness. Skin: Negative for rash. Neurological: Positive for dizziness and headaches. Negative for weakness and numbness. Objective BP 135/85 Pulse 87 Temp 36.3 C (97.3 F) Resp 18 Wt 75.6 kg (166 lb 10.7 oz) LMP 11/04/2021 SpO2 98% BMI 27.87 kg/m Physical Exam Constitutional: Appearance: Normal appearance. HENT: Head: Normocephalic. Jaw: No trismus, tenderness, swelling or pain on movement. Right Ear: Tympanic membrane, ear canal and external ear normal. Left Ear: Tympanic membrane, ear canal and external ear normal. Nose: No congestion. Mouth/Throat: Mouth: Mucous membranes are moist. Pharynx: Oropharynx is clear. Uvula midline. No oropharyngeal exudate or posterior oropharyngeal erythema. Eyes: Conjunctiva/sclera: Conjunctivae normal. Cardiovascular: Rate and Rhythm: Normal rate. Pulmonary: Effort: Pulmonary effort is normal. Breath sounds: Normal breath sounds. No wheezing, rhonchi or rales. Abdominal: Palpations: Abdomen is soft. Tenderness: There is no abdominal tenderness. There is no guarding or rebound. Musculoskeletal: General: Normal range of motion. Cervical back: Normal range of motion and neck supple. No edema, erythema or rigidity. No pain with movement. Normal range of motion. Lymphadenopathy: Cervical: Cervical adenopathy present. Skin: General: Skin is warm. Findings: No rash. Neurological: General: No focal deficit present. Mental Status: She is alert and oriented to person, place, and time. Mental status is at baseline. {ASSESSMENT/PLAN: 1. Pharyngitis, unspecified etiology - ICD9: 462, ICD10: J02.9 (primary diagnosis) - MONOTEST, INFECTIOUS MONO - COMPLETE BLOOD COUNT AND DIFFERENTIAL - COMPREHENSIVE METABOLIC PANEL 2. Viral illness - ICD9: 079.99, ICD10: B34.9 Diagnosis pharyngitis. Will test for mono due to persistent sore throat and fevers. CBC and CMP was ordered as well due to persistent illness. New viral illness versus prolonged bacterial infection. At this time suspicious for new viral illness. Patient was encouraged to follow-up with PCP 2 to 3 days for reevaluation. Patient was educated on supportive therapies. Patient will follow up with primary care provider as needed. Patient was instructed to immediately proceed to emergency room for any new, worsening, or symptoms lasting longer than anticipated. The patient's clinical presentation is otherwise unremarkable at this time. Based on exam and clinical finding, the patient is stable for discharge. Plan of care was discussed with patient. Patient verbalizes understanding and agrees to plan of care. This note was generated using [employer]Central software. It may contain errors in wording, punctuation, or spelling. Jamal Cortez APRN.SUSANA History and Record Review Clinical information obtained from an independent historian. History obtained from or confirmed by: parent. External record(s) reviewed: prior outpatient record. Disposition The patient was discharged. Procedures documented in this encounter [facility] 02-14-2025 Telephone encounter Note Patient calling in. Reports continued sx's of low grade fever, sore throat, sores present on upper throat and tonsils, myalgias, neck discomfort. Initially was treated with a 7-day course of Augmentin; took 3 doses before stopping on advice from an ER doctor. Was seen in on 02/10 and ordered amoxicillin. Currently on day 4 of this and very little improvement, if at all. Voices concern. Appt advised. No appts available within time frame pt prefers. Pt states she will go to today for further evaluation. Bela Martinez RN [facility] 02-14-2025 Miscellaneous Notes Patient calling in. Reports continued sx's of low grade fever, sore throat, sores present on upper throat and tonsils, myalgias, neck discomfort. Initially was treated with a 7-day course of Augmentin; took 3 doses before stopping on advice from an ER doctor. Was seen in on 02/10 and ordered amoxicillin. Currently on day 4 of this and very little improvement, if at all. Voices concern. Appt advised. No appts available within time frame pt prefers. Pt states she will go to today for further evaluation. Bela Martinez RN documented in this encounter [facility] 02-10-2025 Note HNO ID: [id number] Author: SIERRA ALTAMIRANO APRN.CNP Service: ? Author Type: Nurse Practitioner Type: Progress Notes Filed: 02/10/2025 14:31 Note Text: Subjective Shawanda Brink is a 19 year old female. The history is provided by the patient. No statue maker was used. HPI Shawanda Brink is a 19 year old female who presents today for CC of headache, sore throat and fever that started Endy evening and is worsening. She was seen Sore Throat: - Symptoms include sore throat, fever, headache, body aches, and a dry cough. - Reports nausea. - Initially prescribed a 7-day course of Augmentin; took 3 doses before stopping on advice from an ER doctor. - Son, 1 year old, also sick with cough and congestion, had a fever the first day now gone Review of Systems Constitutional: Positive for chills, fatigue and fever. HENT: Positive for sore throat. Negative for congestion, rhinorrhea, sinus pain and sneezing. Respiratory: Negative for cough, shortness of breath and wheezing. Cardiovascular: Negative for chest pain. Musculoskeletal: Positive for myalgias. Negative for arthralgias. Skin: Negative for color change and rash. Neurological: Negative for headaches. Objective BP 121/87 Pulse 89 Temp 36.8 ?C (98.2 ?F) Resp 18 Wt 75.7 kg (166 lb 14.2 oz) LMP 11/04/2021 SpO2 99% BMI 27.91 kg/m? Physical Exam Vitals and nursing note reviewed. Constitutional: General: She is not in acute distress. Appearance: She is not diaphoretic. HENT: Head: Normocephalic and atraumatic. Right Ear: Tympanic membrane, ear canal and external ear normal. No middle ear effusion. Tympanic membrane is not injected, erythematous, retracted or bulging. Left Ear: Tympanic membrane, ear canal and external ear normal. No middle ear effusion. Tympanic membrane is not injected, erythematous, retracted or bulging. Nose: Nose normal. Right Sinus: No maxillary sinus tenderness or frontal sinus tenderness. Left Sinus: No maxillary sinus tenderness or frontal sinus tenderness. Mouth/Throat: Pharynx: Uvula midline. Pharyngeal swelling (mild) and posterior oropharyngeal erythema present. Eyes: Conjunctiva/sclera: Conjunctivae normal. Pupils: Pupils are equal, round, and reactive to light. Cardiovascular: Rate and Rhythm: Normal rate and regular rhythm. Heart sounds: Normal heart sounds. Pulmonary: Effort: Pulmonary effort is normal. No respiratory distress. Breath sounds: Normal breath sounds. No wheezing or rales. Musculoskeletal: Cervical back: Normal range of motion and neck supple. Lymphadenopathy: Head: Right side of head: No submental, submandibular, tonsillar, preauricular or posterior auricular adenopathy. Left side of head: No submental, submandibular, tonsillar, preauricular or posterior auricular adenopathy. Skin: General: Skin is dry. Neurological: Mental Status: She is alert and oriented to person, place, and time. History and Record Review External record(s) reviewed: prior inpatient record. Findings from review of inpatient records: ER record 02/08 Systemic symptoms present included: fever Differential Diagnoses - strep is more likely for the following reason(s): consistent with laboratory studies - viral pharyngitis is less likely for the following reason(s): laboratory studies not suggestive ASSESSMENT/PLAN: 1. Strep pharyngitis - ICD9: 034.0, ICD10: J02.0 (primary diagnosis) - suspect strep - Group A strep molecular testing positive - Amoxicillin for 10 days. - Discussed supportive care treatment with fluids, rest and analgesia. - The patient may also use warm salt water gargles, throat lozenges and/or OTC throat spray as needed. - Contagious dz precautions discussed- including considered contagious until on antibiotics for 24 hours - The patient should follow up in one week if symptoms persist or worsen - Call back if drooling, increased temperature, symptoms of dehydration and/or still sick in one week 2. Sore throat - ICD9: 462, ICD10: J02.9 - STREP A MOLECULAR (POC) Diagnosis and treatment plan were discussed and questions were answered to the patient's satisfaction. Pt acknowledged understanding of concepts and follow up plan. Specific signs and symptoms that would indicate the need for higher level of care were discussed in detail warranting prompt ER evaluation. Sierra Altamirano APRN.[facility] 02-10-2025 History of Presen t illness Narrative Subjective Shawanda Brink is a 19 year old female. The history is provided by the patient. No statue maker was used. HPI Shawanda Brink is a 19 year old female who presents today for CC of headache, sore throat and fever that started Endy evening and is worsening. She was seen Sore Throat: - Symptoms include sore throat, fever, headache, body aches, and a dry cough. - Reports nausea. - Initially prescribed a 7-day course of Augmentin; took 3 doses before stopping on advice from an ER doctor. - Son, 1 year old, also sick with cough and congestion, had a fever the first day now gone Review of Systems Constitutional: Positive for chills, fatigue and fever. HENT: Positive for sore throat. Negative for congestion, rhinorrhea, sinus pain and sneezing. Respiratory: Negative for cough, shortness of breath and wheezing. Cardiovascular: Negative for chest pain. Musculoskeletal: Positive for myalgias. Negative for arthralgias. Skin: Negative for color change and rash. Neurological: Negative for headaches. Objective BP 121/87 Pulse 89 Temp 36.8 C (98.2 F) Resp 18 Wt 75.7 kg (166 lb 14.2 oz) LMP 11/04/2021 SpO2 99% BMI 27.91 kg/m Physical Exam Vitals and nursing note reviewed. Constitutional: General: She is not in acute distress. Appearance: She is not diaphoretic. HENT: Head: Normocephalic and atraumatic. Right Ear: Tympanic membrane, ear canal and external ear normal. No middle ear effusion. Tympanic membrane is not injected, erythematous, retracted or bulging. Left Ear: Tympanic membrane, ear canal and external ear normal. No middle ear effusion. Tympanic membrane is not injected, erythematous, retracted or bulging. Nose: Nose normal. Right Sinus: No maxillary sinus tenderness or frontal sinus tenderness. Left Sinus: No maxillary sinus tenderness or frontal sinus tenderness. Mouth/Throat: Pharynx: Uvula midline. Pharyngeal swelling (mild) and posterior oropharyngeal erythema present. Eyes: Conjunctiva/sclera: Conjunctivae normal. Pupils: Pupils are equal, round, and reactive to light. Cardiovascular: Rate and Rhythm: Normal rate and regular rhythm. Heart sounds: Normal heart sounds. Pulmonary: Effort: Pulmonary effort is normal. No respiratory distress. Breath sounds: Normal breath sounds. No wheezing or rales. Musculoskeletal: Cervical back: Normal range of motion and neck supple. Lymphadenopathy: Head: Right side of head: No submental, submandibular, tonsillar, preauricular or posterior auricular adenopathy. Left side of head: No submental, submandibular, tonsillar, preauricular or posterior auricular adenopathy. Skin: General: Skin is dry. Neurological: Mental Status: She is alert and oriented to person, place, and time. History and Record Review External record(s) reviewed: prior inpatient record. Findings from review of inpatient records: ER record [place] 02/08 Systemic symptoms present included: fever Differential Diagnoses - strep is more likely for the following reason(s): consistent with laboratory studies - viral pharyngitis is less likely for the following reason(s): laboratory studies not suggestive ASSESSMENT/PLAN: 1. Strep pharyngitis - ICD9: 034.0, ICD10: J02.0 (primary diagnosis) - suspect strep - Group A strep molecular testing positive - Amoxicillin for 10 days. - Discussed supportive care treatment with fluids, rest and analgesia. - The patient may also use warm salt water gargles, throat lozenges and/or OTC throat spray as needed. - Contagious dz precautions discussed- including considered contagious until on antibiotics for 24 hours - The patient should follow up in one week if symptoms persist or worsen - Call back if drooling, increased temperature, symptoms of dehydration and/or still sick in one week 2. Sore throat - ICD9: 462, ICD10: J02.9 - STREP A MOLECULAR (POC) Diagnosis and treatment plan were discussed and questions were answered to the patient's satisfaction. Pt acknowledged understanding of concepts and follow up plan. Specific signs and symptoms that would indicate the need for higher level of care were discussed in detail warranting prompt ER evaluation. Sierra Altamirano APRN.CNP documented in this encounter [facility] 02-10-2025 Instructions Sierra Altamirano APRN.CNP - 02/10/2025 1:20 PM EDT Make sure to finish all of the antibiotic as prescribed. Do not stop early even if you are feeling better as the infection may not fully resolve and bacteria may start to grow again. Rest as much as possible, eat nutritiously and drink plenty of non caffeinated fluids. Change your toothbrush in 3 days after beginning the antibiotic. Tylenol or Motrin as needed for pain. Salt water gargles, Cepacol lozenges or Chloraseptic spray may also be helpful for pain. documented in this encounter [facility] 02-07-2025 Note HNO ID: [id number] Author: JANETT PINO MA Service: ? Author Type: Shredder/Granulator Operator Type: Progress Notes Filed: 02/07/2025 11:42 Note Text: Ambulatory Ear Lavage Pre-treatment: No pre-treatment Treatment: Right ear Equipment and Irrigation solution and Volume used: Single use syringe with single use irrigation tip 50 % Hydrogen Peroxide 3%, 50% Water Return flow appearance: Brown Debris Patient tolerated procedure: yes, Tolerated with minimal dizziness and pain which both relieved after successful removal Tympanic membrane assessment: Tympanic membrane assessed by LIP pre and post procedure Rohan Villalba CNP [facility] 02-07-2025 History of Presen t illness Narrative Ambulatory Ear Lavage Pre-treatment: No pre-treatment Treatment: Right ear Equipment and Irrigation solution and Volume used: Single use syringe with single use irrigation tip 50 % Hydrogen Peroxide 3%, 50% Water Return flow appearance: Brown Debris Patient tolerated procedure: yes, Tolerated with minimal dizziness and pain which both relieved after successful removal Tympanic membrane assessment: Tympanic membrane assessed by LIP pre and post procedure Rohan Villalba CNP Subjective Patient ID: Shawanda is a 19 year old female who presents for Ear Problem (Bilateral ear pressure x4 days, head pressure x1 month). The history is provided by the patient. No statue maker was used. Patient presents to from home via personal vehicle with bilateral ear pain since Tuesday +no injury +pressure like pain No OTC meds PMH: migraines, asthma, depression, anxiety No daily meds PSH: none Allergic to lexapro and celexa LMP: x2y ago, +, No bc Former vape use, no ETOH and street drugs PAST MEDICAL HISTORY Diagnosis Date Acne vulgaris 08/18/2015 Anxiety Bipolar 2 disorder (HCC) Cough variant asthma (HCC) 09/27/2016 Depression Migraines PMH - PAST MEDICAL HISTORY OF vascular rose left ankle PAST SURGICAL HISTORY Procedure Laterality Date NONE ALLERGIES Celexa [Citalopram] and Lexapro [Escitalopram] MEDICATIONS amitriptyline (ELAVIL) 10 mg tablet Take 1 tablet by mouth daily at bedtime. SUMAtriptan (IMITREX) 50 mg tablet Take 1 tablet by mouth as needed for migraine headache (see administration instructions). May repeat dose after 2 hours if needed. Maximum daily dose is 200 mg per day. FLUoxetine (PROZAC) 20 mg capsule Take 1 capsule by mouth once daily. FAMILY HISTORY Problem Relation Age of Onset Ange Disease Mother other (pulmnary embolism) Father other (mass on liver) Father other (depression and anxiety) Maternal Grandmother Cervical Cancer Maternal Grandmother other ([place]) Maternal Grandfather 49 other (depression and anxiety) Paternal Grandmother Bipolar disorder Paternal Grandmother Anxiety disorder Paternal Grandfather Cancer Other PATERNAL & MATERNAL SIDES Diabetes Other PATERNAL & MATERNAL SIDES other (CLOTTING DISORDER) Other PATERNAL SIDE - FACTOR 5 DISORDER Paternal great aunt Social History Tobacco Use Smoking status: Never Smokeless tobacco: Never Vaping Use Vaping status: Never Used Substance Use Topics Alcohol use: Never Drug use: Never Objective BP 126/83 Pulse 81 Temp 36.5 C (97.7 F) Resp 18 Wt 77 kg (169 lb 12.1 oz) LMP 11/04/2021 SpO2 100% BMI 28.39 kg/m Physical Exam Vitals and nursing note reviewed. Constitutional: General: She is awake. Appearance: Normal appearance. She is well-groomed. HENT: Head: Normocephalic. Right Ear: Tenderness present. There is impacted cerumen. Left Ear: Hearing, tympanic membrane and external ear normal. No tenderness. There is impacted cerumen. Nose: Right Sinus: Maxillary sinus tenderness and frontal sinus tenderness present. Left Sinus: Maxillary sinus tenderness and frontal sinus tenderness present. Mouth/Throat: Lips: [place]. No lesions. Mouth: Mucous membranes are moist. Dentition: No gum lesions. Pharynx: Oropharynx is clear. Tonsils: 1+ on the right. 1+ on the left. Eyes: General: Lids are normal. Extraocular Movements: Extraocular movements intact. Pupils: Pupils are equal, round, and reactive to light. Neck: Trachea: Trachea normal. Cardiovascular: Rate and Rhythm: Normal rate. Pulses: Normal pulses. Radial pulses are 2+ on the right side and 2+ on the left side. Heart sounds: Normal heart sounds. Pulmonary: Effort: Pulmonary effort is normal. Breath sounds: Normal breath sounds and air entry. Abdominal: General: Bowel sounds are normal. Palpations: Abdomen is soft. Tenderness: There is no abdominal tenderness. Musculoskeletal: General: Normal range of motion. Cervical back: Full passive range of motion without pain and normal range of motion. Lymphadenopathy: Cervical: No cervical adenopathy. Skin: General: Skin is warm and dry. Capillary Refill: Capillary refill takes less than 2 seconds. Neurological: General: No focal deficit present. Mental Status: She is alert and oriented to person, place, and time. GCS: GCS eye subscore is 4. GCS verbal subscore is 5. GCS motor subscore is 6. Gait: Gait is intact. Psychiatric: Mood and Affect: Mood normal. Behavior: Behavior normal. Behavior is cooperative. Thought Content: Thought content normal. Judgment: Judgment normal. Assessment & Plan ASSESSMENT/PLAN: 1. Impacted cerumen of right ear - ICD9: 380.4, ICD10: H61.21 - REMOVAL OF IMPACTED CERUMEN - INSTRUMENTATION - ear lavage performed, patient tolerated well with significant amount of earwax removed 2. Rhinosinusitis - ICD9: 473.9, ICD10: J32.9 - AMOXICILLIN 875 MG-POTASSIUM CLAVULANATE 125 MG TABLET - Begin treatment with Augmentin PO BID for 7 days - Supportive care with plenty of fluids, rest, and analgesia prn. - Follow up if symptoms persist or worsen such as bleeding, swelling or worsening pain. - refrain from using Q-tips and cleaning ears Deyanira Hung NP student TEACHING PROVIDER (Physician/PA/CERTIFIED DIETARY MANAGER) NOTE OF PERSONAL INVOLVEMENT IN CARE: I have personally seen and examined the patient and performed the medical decision-making components. I have reviewed the Advanced Practice Registered Nurse (CERTIFIED DIETARY MANAGER) Student's documentation and verified the findings in the note as written. Any additions or changes are noted in bold/italics. Signature: Rohan Ghotra: 02/07/2025 Time: 11:41 AM documented in this encounter [facility] 02-07-2025 Note HNO ID: [id number] Author: ROHAN VILLALBA APRN.SUSANA Service: ? Author Type: Nurse Practitioner Type: Progress Notes Filed: 02/07/2025 11:42 Note Text: Subjective Patient ID: Shawanda is a 19 year old female who presents for Ear Problem (Bilateral ear pressure x4 days, head pressure x1 month). The history is provided by the patient. No statue maker was used. Patient presents to from home via personal vehicle with bilateral ear pain since Tuesday +no injury +pressure like pain No OTC meds PMH: migraines, asthma, depression, anxiety No daily meds PSH: none Allergic to lexapro and celexa LMP: x2y ago, +, No bc Former vape use, no ETOH and street drugs PAST MEDICAL HISTORY Diagnosis Date Acne vulgaris 08/18/2015 Anxiety Bipolar 2 disorder (HCC) Cough variant asthma (HCC) 09/27/2016 Depression Migraines PMH - PAST MEDICAL HISTORY OF vascular rose left ankle PAST SURGICAL HISTORY Procedure Laterality Date NONE ALLERGIES Celexa [Citalopram] and Lexapro [Escitalopram] MEDICATIONS amitriptyline (ELAVIL) 10 mg tablet Take 1 tablet by mouth daily at bedtime. SUMAtriptan (IMITREX) 50 mg tablet Take 1 tablet by mouth as needed for migraine headache (see administration instructions). May repeat dose after 2 hours if needed. Maximum daily dose is 200 mg per day. FLUoxetine (PROZAC) 20 mg capsule Take 1 capsule by mouth once daily. FAMILY HISTORY Problem Relation Age of Onset Ange Disease Mother other (pulmnary embolism) Father other (mass on liver) Father other (depression and anxiety) Maternal Grandmother Cervical Cancer Maternal Grandmother other ([place]) Maternal Grandfather 49 other (depression and anxiety) Paternal Grandmother Bipolar disorder Paternal Grandmother Anxiety disorder Paternal Grandfather Cancer Other PATERNAL AND MATERNAL SIDES Diabetes Other PATERNAL AND MATERNAL SIDES other (CLOTTING DISORDER) Other PATERNAL SIDE - FACTOR 5 DISORDER Paternal great aunt Social History Tobacco Use Smoking status: Never Smokeless tobacco: Never Vaping Use Vaping status: Never Used Substance Use Topics Alcohol use: Never Drug use: Never Objective BP 126/83 Pulse 81 Temp 36.5 ?C (97.7 ?F) Resp 18 Wt 77 kg (169 lb 12.1 oz) LMP 11/04/2021 SpO2 100% BMI 28.39 kg/m? Physical Exam Vitals and nursing note reviewed. Constitutional: General: She is awake. Appearance: Normal appearance. She is well-groomed. HENT: Head: Normocephalic. Right Ear: Tenderness present. There is impacted cerumen. Left Ear: Hearing, tympanic membrane and external ear normal. No tenderness. There is impacted cerumen. Nose: Right Sinus: Maxillary sinus tenderness and frontal sinus tenderness present. Left Sinus: Maxillary sinus tenderness and frontal sinus tenderness present. Mouth/Throat: Lips: [place]. No lesions. Mouth: Mucous membranes are moist. Dentition: No gum lesions. Pharynx: Oropharynx is clear. Tonsils: 1+ on the right. 1+ on the left. Eyes: General: Lids are normal. Extraocular Movements: Extraocular movements intact. Pupils: Pupils are equal, round, and reactive to light. Neck: Trachea: Trachea normal. Cardiovascular: Rate and Rhythm: Normal rate. Pulses: Normal pulses. Radial pulses are 2+ on the right side and 2+ on the left side. Heart sounds: Normal heart sounds. Pulmonary: Effort: Pulmonary effort is normal. Breath sounds: Normal breath sounds and air entry. Abdominal: General: Bowel sounds are normal. Palpations: Abdomen is soft. Tenderness: There is no abdominal tenderness. Musculoskeletal: General: Normal range of motion. Cervical back: Full passive range of motion without pain and normal range of motion. Lymphadenopathy: Cervical: No cervical adenopathy. Skin: General: Skin is warm and dry. Capillary Refill: Capillary refill takes less than 2 seconds. Neurological: General: No focal deficit present. Mental Status: She is alert and oriented to person, place, and time. GCS: GCS eye subscore is 4. GCS verbal subscore is 5. GCS motor subscore is 6. Gait: Gait is intact. Psychiatric: Mood and Affect: Mood normal. Behavior: Behavior normal. Behavior is cooperative. Thought Content: Thought content normal. Judgment: Judgment normal. Assessment AND Plan ASSESSMENT/PLAN: 1. Impacted cerumen of right ear - ICD9: 380.4, ICD10: H61.21 - REMOVAL OF IMPACTED CERUMEN - INSTRUMENTATION - ear lavage performed, patient tolerated well with significant amount of earwax removed 2. Rhinosinusitis - ICD9: 473.9, ICD10: J32.9 - AMOXICILLIN 875 MG-POTASSIUM CLAVULANATE 125 MG TABLET - Begin treatment with Augmentin PO BID for 7 days - Supportive care with plenty of fluids, rest, and analgesia prn. - Follow up if symptoms persist or worsen such as bleeding, swelling or worsening pain. - refrain from using Q-tips and cleaning ears Deyanira Hung (more content not included)... [facility] 02-07-2025 Telephone encounter Note Pt notified of Providers message below via [email or web address]. Advised pt to keep appt as schedule w/Neuro on 02/13/25. Dina Monroe MA [facility] 02-07-2025 Miscellaneous Notes Pt notified of Providers message below via [email or web address]. Advised pt to keep appt as schedule w/Neuro on 02/13/25. Dina Monroe MA Her workup for her symptoms has thus far been completely normal. I would not recommend checking additional hormone levels based on her complaints at her last OV. She was referred to neurology for her headaches and numbness/tingling. I would have her f/u with specialist as scheduled to discuss concerns further. documented in this encounter [facility] 02-07-2025 Telephone encounter Note Her workup for her symptoms has thus far been completely normal. I would not recommend checking additional hormone levels based on her complaints at her last OV. She was referred to neurology for her headaches and numbness/tingling. I would have her f/u with specialist as scheduled to discuss concerns further. [facility] 01-31-2025 Telephone encounter Note Patient informed via my chart. Nasima Martin MA [facility] 01-31-2025 Miscellaneous Notes Patient informed via my chart. Nasima Martin MA ----- Message from Issac Fernández MD sent at 01/31/2025 9:06 AM EDT ----- Patient's MRI of the brain is normal. documented in this encounter [facility] 01-31-2025 Telephone encounter Note ----- Message from Issac Fernández MD sent at 01/31/2025 9:06 AM EDT ----- Patient's MRI of the brain is normal. [facility] 01-31-2025 History of Presen t illness Narrative Radiology Service Progress Note PATIENT NAME: Shawanda Brink DATE OF SERVICE: January 31, 2025 TIME: 8:03 AM PATIENT IDENTITY VERIFICATION COMPLETED USING TWO (2) IDENTIFIERS: Name and Date of confirmed by patient verbally. FALL SCREENING: Has the patient had 2 falls in the last year or 1 fall with injury or currently using an Ambulatory Assistive Device (Walker, Cane, Wheelchair, Crutches, etc.)? No PATIENT GENDER DATA: Assigned female at . status: : No status: NO. PATIENT RELEVANT IMPLANT DATA REVIEWED: Yes PATIENT PRESENTS WITH AN IMPLANTABLE OR ATTACHED TELEPHONE CLERK TELEGRAPH OFFICE: No RADIOLOGY DEPARTMENT: MR; Exam(s) Completed: Head: Routine Brain. Aromatherapy Administered: No PERIPHERAL IV DATA: Not applicable SIGNED BY: RT Agustina(R) January 31, 2025 8:03 AM documented in this encounter [facility] 01-31-2025 Note HNO ID: [id number] Author: NEIL GRISSOM RT(R) Service: ? Author Type: Technologist Type: Progress Notes Filed: 01/31/2025 08:12 Note Text: Radiology Service Progress Note PATIENT NAME: Shawanda Brink DATE OF SERVICE: January 31, 2025 TIME: 8:03 AM PATIENT IDENTITY VERIFICATION COMPLETED USING TWO (2) IDENTIFIERS: Name and Date of confirmed by patient verbally. FALL SCREENING: Has the patient had 2 falls in the last year or 1 fall with injury or currently using an Ambulatory Assistive Device (Walker, Cane, Wheelchair, Crutches, etc.)? No PATIENT GENDER DATA: Assigned female at . status: : No status: NO. PATIENT RELEVANT IMPLANT DATA REVIEWED: Yes PATIENT PRESENTS WITH AN IMPLANTABLE OR ATTACHED TELEPHONE CLERK TELEGRAPH OFFICE: No RADIOLOGY DEPARTMENT: MR; Exam(s) Completed: Head: Routine Brain. Aromatherapy Administered: No PERIPHERAL IV DATA: Not applicable SIGNED BY: RT Agustina(R) January 31, 2025 8:03 AM [facility] 01-25-2025 Instructions Issac Fernández MD - 01/25/2025 10:40 AM EDT - Start amitriptyline 10 mg by mouth at bedtime to help prevent your migraine headaches; a 30-day supply with refills has been sent to [facility] in [place]. Let us know if your headaches return or worsen. - Proceed with the brain MRI we ordered as soon as possible to evaluate your headaches, dizziness, numbness, tingling, and vision changes. - Schedule and attend a neurology appointment for further evaluation; you can make this with the main desk before you leave today. - Keep your February 09 eye doctor appointment to assess your vision issues and floaters. - A vision screening was completed today in the clinic. - Return for a migraine recheck in 3 months; the nurse will arrange this follow-up before you go. documented in this encounter [facility] 01-25-2025 Note HNO ID: [id number] Author: ISSAC FERNÁNDEZ MD Service: ? Author Type: Physician Type: Progress Notes Filed: 01/25/2025 10:46 Note Text: Chief Complaint Patient presents with: Follow Up Recording using [employer] software for draft documentation of the visit was discussed with the patient/authorized billing customer service representative; all questions welcomed and answered. Patient/authorized billing customer service representative agreed to proceed HPI Shawanda Brink is a 19 year old female who presents here today for multiple complaints. Palpitations: - Onset a few months ago. - Holter monitor for 2 weeks was normal. - Stopped taking propranolol 40 mg BID two days ago due to concerns about low heart rate (42-43 bpm at rest). Headaches: - Onset in August, initially 1-2 times/week, increased to 3-5 times/week, now occurring almost daily. - Described as mild, strained headaches, located behind the eyes. - Alleviated by ibuprofen or Tylenol, but recur after 6-8 hours. - Denies current migraine headaches; previously experienced 8-10 severe headaches per month, lasting 3-5 days each. Dizziness: - Onset in August, initially intermittent, now constant with only 2 hours/day without dizziness. - Described as feeling unsteady and foggy, not associated with room spinning or lightheadedness. - Worse when standing up or sitting down. Vision Changes: - Onset in August, described as off vision, progressively worsening. - Reports blurry vision, floaters, and flashing lights in peripheral vision. - No eye pain, redness, or drainage. - Denies black spots in vision. - Scheduled to see an eye doctor on February 09. Paresthesias: - Onset in 2022, initially in the left shoulder blade, now spreading to the left side of the spine and lower legs. - Described as pins and needles sensation, occurring randomly without a known trigger. - Denies slurred speech or facial droop. Muscle Weakness: - Describes limbs as feeling heavy and cemented, making it difficult to walk and perform daily activities. - Not severe enough to prevent lifting limbs. 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 Past medical history, appointments, medications, allergies reviewed. Previous Medical History PAST MEDICAL HISTORY Diagnosis Date Acne vulgaris 08/18/2015 Anxiety Bipolar 2 disorder (HCC) Cough variant asthma (HCC) 09/27/2016 Depression Migraines PMH - PAST MEDICAL HISTORY OF vascular rose left ankle Previous Surgical History PAST SURGICAL HISTORY Procedure Laterality Date NONE Family History FAMILY HISTORY Problem Relation Age of Onset Ange Disease Mother other (pulmnary embolism) Father other (mass on liver) Father other (depression and anxiety) Maternal Grandmother Cervical Cancer Maternal Grandmother other ([place]) Maternal Grandfather 49 other (depression and anxiety) Paternal Grandmother Bipolar disorder Paternal Grandmother Anxiety disorder Paternal Grandfather Cancer Other PATERNAL AND MATERNAL SIDES Diabetes Other PATERNAL AND MATERNAL SIDES other (CLOTTING DISORDER) Other PATERNAL SIDE - FACTOR 5 DISORDER Paternal great aunt Patient Allergies ALLERGIES Allergen Reactions Celexa [Citalopram] Other: See Comments Tunnel vision Lexapro [Escitalopr* Rash Current Medications Current Outpatient Medications on File Prior to Visit Medication Sig SUMAtriptan (IMITREX) 50 mg tablet Take 1 tablet by mouth as needed for migraine headache (see administration instructions). May repeat dose after 2 hours if needed. Maximum daily dose is 200 mg per day. propranolol (INDERAL) 40 mg tablet Take 1 tablet by mouth two times a day. (Patient not taking: Reported on 01/25/2025) FLUoxetine (PROZAC) 20 mg capsule Take 1 capsule by mouth once daily. No current facility-administered medications on file prior to visit. Social History Social History Tobacco Use Smoking status: Never Smokeless tobacco: Never Vaping Use Vaping status: Never Used Substance Use Topics Alcohol use: Never Drug use: Never Review of Symptoms REVIEW OF SYSTEMS See HPI EXAM: BP 120/86 Pulse 72 Ht 164.7 cm (5' 4.84) Wt 76.8 kg (169 lb 6.4 oz) LMP 11/04/2021 SpO2 98% Yes BMI 28.33 kg/m? VISION SCREEN: OD 20/30 OS 20/40 OU 20/30 General Appearance: Well appearing, alert, in no acute distress, well-hydrated, well nourished.. Skin: Skin color, texture, turgor normal, no suspicious rashes or lesions. Eyes: Anicteric sclera. Pupils are equally round and reactive to light. Extraocular movements are intact. Funduscopic exam normal without dilation Oropharynx: Lips, mucosa, and tongue normal, teeth and gums normal, oropharynx normal. Lungs: Lungs clear to auscultation. No wheezing, rhonchi, rales.. Heart: RRR without murmur, gallop, or rubs. No ectopy. Neurologic: Negative findings: speech normal, menta (more content not included)... [facility] 01-25-2025 History of Presen t illness Narrative Chief Complaint Patient presents with: Follow Up Recording using HALFPOPS software for draft documentation of the visit was discussed with the patient/authorized billing customer service representative; all questions welcomed and answered. Patient/authorized billing customer service representative agreed to proceed HPI Shawanda Brink is a 19 year old female who presents here today for multiple complaints. Palpitations: - Onset a few months ago. - Holter monitor for 2 weeks was normal. - Stopped taking propranolol 40 mg BID two days ago due to concerns about low heart rate (42-43 bpm at rest). Headaches: - Onset in August, initially 1-2 times/week, increased to 3-5 times/week, now occurring almost daily. - Described as mild, strained headaches, located behind the eyes. - Alleviated by ibuprofen or Tylenol, but recur after 6-8 hours. - Denies current migraine headaches; previously experienced 8-10 severe headaches per month, lasting 3-5 days each. Dizziness: - Onset in August, initially intermittent, now constant with only 2 hours/day without dizziness. - Described as feeling unsteady and foggy, not associated with room spinning or lightheadedness. - Worse when standing up or sitting down. Vision Changes: - Onset in August, described as off vision, progressively worsening. - Reports blurry vision, floaters, and flashing lights in peripheral vision. - No eye pain, redness, or drainage. - Denies black spots in vision. - Scheduled to see an eye doctor on February 09. Paresthesias: - Onset in 2022, initially in the left shoulder blade, now spreading to the left side of the spine and lower legs. - Described as pins and needles sensation, occurring randomly without a known trigger. - Denies slurred speech or facial droop. Muscle Weakness: - Describes limbs as feeling heavy and cemented, making it difficult to walk and perform daily activities. - Not severe enough to prevent lifting limbs. 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 Past medical history, appointments, medications, allergies reviewed. Previous Medical History PAST MEDICAL HISTORY Diagnosis Date Acne vulgaris 08/18/2015 Anxiety Bipolar 2 disorder (HCC) Cough variant asthma (HCC) 09/27/2016 Depression Migraines PMH - PAST MEDICAL HISTORY OF vascular rose left ankle Previous Surgical History PAST SURGICAL HISTORY Procedure Laterality Date NONE Family History FAMILY HISTORY Problem Relation Age of Onset Ange Disease Mother other (pulmnary embolism) Father other (mass on liver) Father other (depression and anxiety) Maternal Grandmother Cervical Cancer Maternal Grandmother other ([place]) Maternal Grandfather 49 other (depression and anxiety) Paternal Grandmother Bipolar disorder Paternal Grandmother Anxiety disorder Paternal Grandfather Cancer Other PATERNAL & MATERNAL SIDES Diabetes Other PATERNAL & MATERNAL SIDES other (CLOTTING DISORDER) Other PATERNAL SIDE - FACTOR 5 DISORDER Paternal great aunt Patient Allergies ALLERGIES Allergen Reactions Celexa [Citalopram] Other: See Comments Tunnel vision Lexapro [Escitalopr* Rash Current Medications Current Outpatient Medications on File Prior to Visit Medication Sig SUMAtriptan (IMITREX) 50 mg tablet Take 1 tablet by mouth as needed for migraine headache (see administration instructions). May repeat dose after 2 hours if needed. Maximum daily dose is 200 mg per day. propranolol (INDERAL) 40 mg tablet Take 1 tablet by mouth two times a day. (Patient not taking: Reported on 01/25/2025) FLUoxetine (PROZAC) 20 mg capsule Take 1 capsule by mouth once daily. No current facility-administered medications on file prior to visit. Social History Social History Tobacco Use Smoking status: Never Smokeless tobacco: Never Vaping Use Vaping status: Never Used Substance Use Topics Alcohol use: Never Drug use: Never Review of Symptoms REVIEW OF SYSTEMS See HPI EXAM: BP 120/86 Pulse 72 Ht 164.7 cm (5' 4.84) Wt 76.8 kg (169 lb 6.4 oz) LMP 11/04/2021 SpO2 98% Yes BMI 28.33 kg/m VISION SCREEN: OD 20/30 OS 20/40 OU 20/30 General Appearance: Well appearing, alert, in no acute distress, well-hydrated, well nourished.. Skin: Skin color, texture, turgor normal, no suspicious rashes or lesions. Eyes: Anicteric sclera. Pupils are equally round and reactive to light. Extraocular movements are intact. Funduscopic exam normal without dilation Oropharynx: Lips, mucosa, and tongue normal, teeth and gums normal, oropharynx normal. Lungs: Lungs clear to auscultation. No wheezing, rhonchi, rales.. Heart: RRR without murmur, gallop, or rubs. No ectopy. Neurologic: Negative findings: speech normal, mental status intact, cranial nerves 2-12 intact, gait, including heel, toe, and tandem walking normal, muscle tone normal, muscle strength normal, sensation to light touch and pinprick normal, reflexes normal and symmetric. Health Maintenance List Meningococcal B Vaccine(1 of 2 - Standard) Never done Hepatitis C Screening Never done HIV Screening Never done Asthma Control Test due on 08/27/2022 GC (Gonorrhea) Screening (18-24) due on 11/16/2022 Chlamydia Screening (18-24) due on 11/16/2022 Asthma Action Plan due on 08/27/2023 Covid-19 Vaccine(2023- season) Never done Cervical Cancer Screening Never done Influenza Vaccine(1) due on 03/18/2025 Annual PCP Team Chronic Disease Visit due on 01/25/2026 DTaP,Tdap,Td Vaccine(8 - Td or Tdap) due on 11/03/2032 Hepatitis B Vaccine Completed HPV Vaccine Completed Data reviewed Latest Ref Rng 12/28/2024 WBC 3.70 - 11.00 k/uL 7.79 RBC 3.90 - 5.20 m/uL 4.81 Hemoglobin 11.5 - 15.5 g/dL 14.0 Hematocrit 36.0 - 46.0 % 42.9 MCV 80.0 - 100.0 fL 89.2 MCH 26.0 - 34.0 pg 29.1 MCHC 30.5 - 36.0 g/dL 32.6 RDW-CV 11.5 - 15.0 % 12.8 Platelet Count 150 - 400 k/uL 341 MPV 9.0 - 12.7 fL 11.1 Neut% % 60.9 Abs Neut (ANC) 1.45 - 7.50 k/uL 4.75 Lymph% % 29.8 Abs Lymph 1.00 - 4.00 k/uL 2.32 Ingham% % 5.4 Abs Ingham <0.87 k/uL 0.42 Eosin% % 3.1 Abs Eosin <0.46 k/uL 0.24 Baso% % 0.5 Abs Baso <0.11 k/uL 0.04 Immature Gran % % 0.3 IMMATURE GRANS (ABS) <0.10 k/uL <0.03 NRBC /100 WBC 0.0 Absolute nRBC <0.01 k/uL <0.01 DTYPE Auto Protein, Total 6.3 - 8.0 g/dL 7.5 Albumin 3.9 - 4.9 g/dL 4.3 Calcium 8.5 - 10.2 mg/dL 9.7 Bilirubin, Total 0.2 - 1.3 mg/dL 0.3 Alkaline Phosphatase 34 - 123 U/L 108 AST 13 - 35 U/L 13 ALT 7 - 38 U/L 13 Glucose 74 - 99 mg/dL 80 BUN 7 - 21 mg/dL 14 Creatinine 0.58 - 0.96 mg/dL 0.70 Sodium 136 - 144 mmol/L 140 Potassium 3.7 - 5.1 mmol/L 3.9 Chloride 98 - 107 mmol/L 104 CO2 22 - 30 mmol/L 25 Anion Gap 8 - 15 mmol/L 11 eGFR >=60 mL/min/1.73m 126 TSH 0.270 - 4.200 mIU/L 1.190 Magnesium 1.7 - 2.3 mg/dL 2.1 2 WEEK HOLTER 01/22/2025 IRHYTHM FINDINGS: Patient had a min HR of 42 bpm, max HR of 165 bpm, and avg HR of 79 bpm. Predominant underlying rhythm was Sinus Rhythm. Isolated SVEs were rare (<1.0%), and no SVE Couplets or SVE Triplets were present. Isolated VEs were rare (<1.0%), and no VE Couplets or VE Triplets were present. 1. Migraine without status migrainosus, not intractable, unspecified migraine type (G43.909) - Migraines have improved; currently experiencing mild headaches managed with ibuprofen or Tylenol. - Discontinued propranolol 40 mg BID due to bradycardia (HR 42-43 bpm). - Initiated amitriptyline 10 mg PO at bedtime; prescription sent to [facility]. - Follow-up in 3 months to re-evaluate migraine management. 2. Unsteadiness on feet (R26.81) 3. Numbness and tingling (R20.0) 4. Demyelinating disease of central nervous system (HCC) (G37.9) 5. Dizziness and giddiness (R42) - Experiencing unsteadiness, numbness, and tingling in left shoulder blade and lower legs, as well as dizziness and brain fog. - Neurologic exam normal; no signs of stroke or significant weakness observed. - Ordered MRI of the brain to rule out demyelinating diseases such as multiple sclerosis, intracranial masses, and other potential causes. - Referred to neurology for further evaluation. 6. Blurred vision (H53.8) - Blurred vision with floaters, progressively worsening since August. - No eye pain, redness, or drainage observed. - left eye weaker than the right on vision screening. - Advised to keep the appointment with the eye doctor on February 09 for further evaluation. Issac Fernández MD documented in this encounter [facility] 01-21-2025 Telephone encounter Note Appointment scheduled. Patient notified via . Yohana Bird LPN [facility] 01-21-2025 Miscellaneous Notes Appointment scheduled. Patient notified via . Yohana Bird LPN Recommend repeat OV this week for 40 minutes for multiple complaints. See patient update. Is scheduled to have echo on 01/28. Yohana Bird LPN documented in this encounter [facility] 01-21-2025 Telephone encounter Note Recommend repeat OV this week for 40 minutes for multiple complaints. [facility] 01-21-2025 Telephone encounter Note See patient update. Is scheduled to have echo on 01/28. Yohana Bird LPN [facility] 01-11-2025 Telephone encounter Note Per provider Veronica Podlogar [employer]ANDING MACHINE [employer]FFER, See if they can reschedule the ECHO for next week. If it going to be weeks or months I guess I'd have her remove it early.. Called and let Pt know. Pt was put through to scheduling. Keli Myers RN [facility] 01-11-2025 Miscellaneous Notes Per provider Veronica Guerralogceline [employer]ING MACHINE [employer], See if they can reschedule the ECHO for next week. If it going to be weeks or months I guess I'd have her remove it early.. Called and let Pt know. Pt was put through to scheduling. Keli Myers RN Pt called in and reports she has an ECHO scheduled today at 330. She has the 14 day Holter monitor on and has only had it on 10 days. She wants to know if she should take that off early, or reschedule her ECHO. Please call and advise. Keli Myers RN documented in this encounter [facility] 01-11-2025 Telephone encounter Note Pt called in and reports she has an ECHO scheduled today at 330. She has the 14 day Holter monitor on and has only had it on 10 days. She wants to know if she should take that off early, or reschedule her ECHO. Please call and advise. Keli Myers, RN [facility] 12-31-2024 Telephone encounter Note Patient informed. Nasima Martin MA [facility] 12-31-2024 Telephone encounter Note ----- Message from Issac Fernández MD sent at 12/31/2024 7:07 AM EDT ----- Normal labs. [facility] 12-31-2024 Miscellaneous Notes Patient informed. Nasima Martin MA ----- Message from Issac Fernández MD sent at 12/31/2024 7:07 AM EDT ----- Normal labs. documented in this encounter [facility] 12-27-2024 Instructions Issac Fernández MD - 12/27/2024 1:07 PM EDT - Start propranolol 40 mg twice daily to prevent migraines and help control heart rate; if you feel lightheaded or your heart rate drops below 60 bpm or your blood pressure falls below 100/60 mm Hg, call our office. - Continue using Imitrex for migraine attacks; wait 8-12 hours after each dose before . - I would not recommend becoming on these medications. Please use condoms during sexual intercourse or follow up wtih [employer] to discuss control options. If you were to become or are trying to become , please notify our office right away. - Check in at the front desk supervisor and go to the lab today for your blood tests. - help desk support specialist will schedule your heart ultrasound (echocardiogram) and arrange mailing of a Zio patch monitor for you to wear for about two weeks. - Avoid stimulants such as tobacco and caffeine, and make sure you stay well hydrated. - Seek emergency care if your heart rate stays above 120 bpm for more than 15-20 minutes, or if you develop sudden chest pain, shortness of breath, or feel faint. documented in this encounter [facility] 12-27-2024 Note HNO ID: [id number] Author: ISSAC FERNÁNDEZ MD Service: ? Author Type: Physician Type: Progress Notes Filed: 12/27/2024 13:15 Note Text: Chief Complaint Patient presents with: Migraine Tachycardia Recording using HALFPOPS software for draft documentation of the visit was discussed with the patient/authorized billing customer service representative; all questions welcomed and answered. Patient/authorized billing customer service representative agreed to proceed HPI Shawanda Brink is a 19 year old female who presents here today for Above Complaints. Migraines: - Chronic migraines worsening in frequency and severity. - Currently experiencing migraines 5 days per week. - Previously seen on 11/30 for migraines occurring 8-10 days per month since August, lasting 3-5 days each. - Associated symptoms: dizziness, nausea, feeling not herself. - Visual auras: flashing lights, underwater vision, loss of peripheral vision lasting a few minutes. - Sharp pain behind the eyes, initially on the right side, now also on the left side. - Prescribed Imitrex for acute attacks; reports it helps with headaches but causes jaw pain and nausea. - Attempted to identify triggers; noted stress at work as a potential trigger but also experiences migraines randomly. - OB suggested hormonal panel due to , but no labs ordered by their office. Tachycardia: - Episodes of tachycardia and lightheadedness since . - Heart rate recorded at 140 bpm while standing in the shower. - Episodes occur every other day, with heart rates between 120-140 bpm. - Symptoms include feeling like the wind's knocked out of me and difficulty breathing. - No recent episodes of syncope; one episode in 2023 required hospitalization. - Denies recent nausea, emesis, or diarrhea. - Resting heart rate usually in the 60s. - Monitoring heart rate with Apple Watch and pulse oximeter. - Denies current ; last period not yet resumed due to . - History of gestational diabetes. - Previous evaluation by [facility] in September or October 2022; no echo performed, only noted low potassium levels. Past medical history, appointments, medications, allergies reviewed. Previous Medical History PAST MEDICAL HISTORY Diagnosis Date Acne vulgaris 08/18/2015 Anxiety Bipolar 2 disorder (HCC) Cough variant asthma (HCC) 09/27/2016 Depression Migraines PMH - PAST MEDICAL HISTORY OF vascular rose left ankle Previous Surgical History PAST SURGICAL HISTORY Procedure Laterality Date NONE Family History FAMILY HISTORY Problem Relation Age of Onset Ange Disease Mother other (pulmnary embolism) Father other (mass on liver) Father other (depression and anxiety) Maternal Grandmother Cervical Cancer Maternal Grandmother other ([place]) Maternal Grandfather 49 other (depression and anxiety) Paternal Grandmother Bipolar disorder Paternal Grandmother Anxiety disorder Paternal Grandfather Cancer Other PATERNAL AND MATERNAL SIDES Diabetes Other PATERNAL AND MATERNAL SIDES other (CLOTTING DISORDER) Other PATERNAL SIDE - FACTOR 5 DISORDER Paternal great aunt Patient Allergies ALLERGIES Allergen Reactions Celexa [Citalopram] Other: See Comments Tunnel vision Lexapro [Escitalopr* Rash Current Medications Current Outpatient Medications on File Prior to Visit Medication Sig SUMAtriptan (IMITREX) 50 mg tablet Take 1 tablet by mouth as needed for migraine headache (see administration instructions). May repeat dose after 2 hours if needed. Maximum daily dose is 200 mg per day. FLUoxetine (PROZAC) 20 mg capsule Take 1 capsule by mouth once daily. No current facility-administered medications on file prior to visit. Social History Social History Tobacco Use Smoking status: Never Smokeless tobacco: Never Vaping Use Vaping status: Never Used Substance Use Topics Alcohol use: Never Drug use: Never Review of Symptoms REVIEW OF SYSTEMS See HPI EXAM: BP 104/84 Pulse 80 Ht 164.7 cm (5' 4.84) Wt 78 kg (171 lb 15.3 oz) LMP 11/04/2021 SpO2 98% BMI 28.76 kg/m? BP w/Orthostatic Vitals Date and Time Orthostatic BP Orthostatic Pulse BP Pulse BP Position BP Site BP Cuff Size 12/27/24 1251 125/91 92 -- -- Standing -- -- 12/27/24 1250 117/77 67 -- -- Supine -- -- 12/27/24 1200 -- -- 104/84 80 -- -- -- General Appearance: Well appearing, alert, in no acute distress, well-hydrated, well nourished.. Skin: Skin color, texture, turgor normal, no suspicious rashes or lesions. Lungs: Lungs clear to auscultation. No wheezing, rhonchi, rales.. Heart: RRR without murmur, gallop, or rubs. No ectopy. Abdomen: Normal abdominal exam, Abdomen soft, non-tender. Bowel sounds normal. No masses, organomegaly. Extremities: No deformities, edema, skin discoloration, clubbing or cyanosis. Good capillary refill. . Health Maintenance List Meningococcal B Vaccine(1 of 2 - Standard) [place] (more content not included)... [facility] 12-27-2024 History of Presen t illness Narrative Chief Complaint Patient presents with: Migraine Tachycardia Recording using HALFPOPS software for draft documentation of the visit was discussed with the patient/authorized billing customer service representative; all questions welcomed and answered. Patient/authorized billing customer service representative agreed to proceed HPI Shawanda Brink is a 19 year old female who presents here today for Above Complaints. Migraines: - Chronic migraines worsening in frequency and severity. - Currently experiencing migraines 5 days per week. - Previously seen on 11/30 for migraines occurring 8-10 days per month since August, lasting 3-5 days each. - Associated symptoms: dizziness, nausea, feeling not herself. - Visual auras: flashing lights, underwater vision, loss of peripheral vision lasting a few minutes. - Sharp pain behind the eyes, initially on the right side, now also on the left side. - Prescribed Imitrex for acute attacks; reports it helps with headaches but causes jaw pain and nausea. - Attempted to identify triggers; noted stress at work as a potential trigger but also experiences migraines randomly. - OB suggested hormonal panel due to , but no labs ordered by their office. Tachycardia: - Episodes of tachycardia and lightheadedness since . - Heart rate recorded at 140 bpm while standing in the shower. - Episodes occur every other day, with heart rates between 120-140 bpm. - Symptoms include feeling like the wind's knocked out of me and difficulty breathing. - No recent episodes of syncope; one episode in 2023 required hospitalization. - Denies recent nausea, emesis, or diarrhea. - Resting heart rate usually in the 60s. - Monitoring heart rate with Apple Watch and pulse oximeter. - Denies current ; last period not yet resumed due to . - History of gestational diabetes. - Previous evaluation by [facility] in September or October 2022; no echo performed, only noted low potassium levels. Past medical history, appointments, medications, allergies reviewed. Previous Medical History PAST MEDICAL HISTORY Diagnosis Date Acne vulgaris 08/18/2015 Anxiety Bipolar 2 disorder (HCC) Cough variant asthma (HCC) 09/27/2016 Depression Migraines PMH - PAST MEDICAL HISTORY OF vascular rose left ankle Previous Surgical History PAST SURGICAL HISTORY Procedure Laterality Date NONE Family History FAMILY HISTORY Problem Relation Age of Onset Ange Disease Mother other (pulmnary embolism) Father other (mass on liver) Father other (depression and anxiety) Maternal Grandmother Cervical Cancer Maternal Grandmother other ([place]) Maternal Grandfather 49 other (depression and anxiety) Paternal Grandmother Bipolar disorder Paternal Grandmother Anxiety disorder Paternal Grandfather Cancer Other PATERNAL & MATERNAL SIDES Diabetes Other PATERNAL & MATERNAL SIDES other (CLOTTING DISORDER) Other PATERNAL SIDE - FACTOR 5 DISORDER Paternal great aunt Patient Allergies ALLERGIES Allergen Reactions Celexa [Citalopram] Other: See Comments Tunnel vision Lexapro [Escitalopr* Rash Current Medications Current Outpatient Medications on File Prior to Visit Medication Sig SUMAtriptan (IMITREX) 50 mg tablet Take 1 tablet by mouth as needed for migraine headache (see administration instructions). May repeat dose after 2 hours if needed. Maximum daily dose is 200 mg per day. FLUoxetine (PROZAC) 20 mg capsule Take 1 capsule by mouth once daily. No current facility-administered medications on file prior to visit. Social History Social History Tobacco Use Smoking status: Never Smokeless tobacco: Never Vaping Use Vaping status: Never Used Substance Use Topics Alcohol use: Never Drug use: Never Review of Symptoms REVIEW OF SYSTEMS See HPI EXAM: BP 104/84 Pulse 80 Ht 164.7 cm (5' 4.84) Wt 78 kg (171 lb 15.3 oz) LMP 11/04/2021 SpO2 98% BMI 28.76 kg/m BP w/Orthostatic Vitals Date and Time Orthostatic BP Orthostatic Pulse BP Pulse BP Position BP Site BP Cuff Size 12/27/24 1251 125/91 92 -- -- Standing -- -- 12/27/24 1250 117/77 67 -- -- Supine -- -- 12/27/24 1200 -- -- 104/84 80 -- -- -- General Appearance: Well appearing, alert, in no acute distress, well-hydrated, well nourished.. Skin: Skin color, texture, turgor normal, no suspicious rashes or lesions. Lungs: Lungs clear to auscultation. No wheezing, rhonchi, rales.. Heart: RRR without murmur, gallop, or rubs. No ectopy. Abdomen: Normal abdominal exam, Abdomen soft, non-tender. Bowel sounds normal. No masses, organomegaly. Extremities: No deformities, edema, skin discoloration, clubbing or cyanosis. Good capillary refill. . Health Maintenance List Meningococcal B Vaccine(1 of 2 - Standard) Never done Hepatitis C Screening Never done HIV Screening Never done Asthma Control Test due on 08/27/2022 GC (Gonorrhea) Screening (18-24) due on 11/16/2022 Chlamydia Screening (18-24) due on 11/16/2022 Asthma Action Plan due on 08/27/2023 Covid-19 Vaccine( season) Never done Cervical Cancer Screening Never done Influenza Vaccine(Season Ended) due on 03/18/2025 Annual PCP Team Chronic Disease Visit due on 12/27/2025 DTaP,Tdap,Td Vaccine(8 - Td or Tdap) due on 11/03/2032 Hepatitis B Vaccine Completed HPV Vaccine Completed Data reviewed EKG: NSR with sinus arrhythmia at 73 bpm. Normal EKG. 1. Migraine with aura, intractable, without status migrainosus (G43.119) - Migraines have increased in frequency to approximately 5 days per week, with associated auras, nausea, and sharp pain behind the eyes. - Current abortive treatment with Imitrex is partially effective for headaches but causes jaw pain and nausea. - Initiated propranolol 40 mg PO BID for migraine prophylaxis, safe for use during . - Advised to continue Imitrex as needed, with instructions to hold for 8-12 hours post-dose. - Discussed potential triggers and recommended maintaining a headache diary. 2. Palpitations (R00.2) 3. Tachycardia (R00.0) - Episodes of tachycardia up to 140 bpm, associated with lightheadedness and dyspnea, occurring every other day. - EKG performed today showed normal sinus rhythm. - Orthostatic vital signs showed mild elevation in heart rate but not significant for POTS. - Ordered blood work to evaluate for underlying causes. - Scheduled echocardiogram to assess cardiac function. - Arranged for Zio patch monitor to be worn for two weeks to capture episodes of tachycardia. - Advised to avoid stimulants such as caffeine and tobacco, and to maintain adequate hydration. - Instructed to seek emergency care if heart rate exceeds 120 bpm and persists for more than 15-20 minutes, or if accompanied by chest pain, severe shortness of breath, or near-syncope. 4. Encounter for test, result unknown (Z32.00) - Urine test performed today was negative. I spent a total of 45 minutes on the date of the service which included preparing to see the patient, [id number] patient care, completing clinical documentation, obtaining and/or reviewing separately obtained history, performing a medically appropriate examination, counseling and educating the patient/family/caregiver, ordering medications, tests, or procedures, independently interpreting results (not separately reported), and communicating results to the patient/family/caregiver. Issac Fernández MD documented in this encounter [facility] 12-27-2024 Note HNO ID: [id number] Author: MINDY BORREGO MD Service: ? Author Type: Physician Type: Procedures Filed: 01/23/2025 15:02 Note Text: Patient Name: Shawanda Brink : 2005 Ordering Provider: Issac Fernández Indication: R00.2 Palpitations Type of Monitor: Extended Monitoring-Zio Patch Enrollment Dates: 01/01/2025-01/15/2025 IRHYTHM FINDINGS: Patient had a min HR of 42 bpm, max HR of 165 bpm, and avg HR of 79 bpm. Predominant underlying rhythm was Sinus Rhythm. Isolated SVEs were rare (<1.0%), and no SVE Couplets or SVE Triplets were present. Isolated VEs were rare (<1.0%), and no VE Couplets or VE Triplets were present. [facility] 12-26-2024 Telephone encounter Note Placed call to patient with no answer. Unable to leave message due to mailbox full. Try again later. Nasima Martin MA [facility] 12-26-2024 Miscellaneous Notes Placed call to patient with no answer. Unable to leave message due to mailbox full. Try again later. Nasima Martin MA Reviewed. If HR >120 at rest or develops chest pain, palpitations, SOB, lightheadedness or passes out they need to be seen in the ER. Patient calls to reschedule appt for migraines and episodes of elevated HR (not currently experiencing). Nurse triage recommends see provider within 4 hours. Offered available appointment. Patient is not able to come for that appt. Reports symptoms are on-going for two years so requesting appt tomorrow. Scheduled. Care advice and red flag symptoms reviewed with verbalized understanding. Reason for Disposition [1] Heart beating very rapidly (e.g., > 140 / minute) AND [2] not present now (Exception: During exercise.) Answer Assessment - Initial Assessment Questions 1. DESCRIPTION: Patient calls to reschedule appointment for migraines and random elevated HR. 2. ONSET: Patient reports on-going for approximately 2 years. 3. DURATION: Patient reports that the elevated HR occurs randomly and doesn't last long. Usually less than a minute and resolves with rest. 4. PATTERN: Intermittent. Sometimes seems worse with activity or anxiety. Not currently experiencing. 5. TAP: Not currently experiencing. 6. HEART RATE: Patient reports HR fluctuates from 60 to 140. Currently feels normal. 7. RECURRENT SYMPTOM: On-going for two years. 8. CAUSE: Patient reports that she has high anxiety and she notices when she is experiencing that she also notices the HR to be elevated. 9. CARDIAC HISTORY: No history of heart attack, angina, bypass surgery, angioplasty, arrhythmia. 10. OTHER SYMPTOMS:No symptoms currently. Slight dizziness and shortness of breath sometimes with elevated HR. No chest pain, sweating. Protocols used: Heart Rate and Heartbeat [id number] documented in this encounter [facility] 12-26-2024 Telephone encounter Note Reviewed. If HR >120 at rest or develops chest pain, palpitations, SOB, lightheadedness or passes out they need to be seen in the ER. [facility] Work Phone: 12-26-2024 Telephone encounter Note Patient calls to reschedule appt for migraines and episodes of elevated HR (not currently experiencing). Nurse triage recommends see provider within 4 hours. Offered available appointment. Patient is not able to come for that appt. Reports symptoms are on-going for two years so requesting appt tomorrow. Scheduled. Care advice and red flag symptoms reviewed with verbalized understanding. Reason for Disposition [1] Heart beating very rapidly (e.g., > 140 / minute) AND [2] not present now (Exception: During exercise.) Answer Assessment - Initial Assessment Questions 1. DESCRIPTION: Patient calls to reschedule appointment for migraines and random elevated HR. 2. ONSET: Patient reports on-going for approximately 2 years. 3. DURATION: Patient reports that the elevated HR occurs randomly and doesn't last long. Usually less than a minute and resolves with rest. 4. PATTERN: Intermittent. Sometimes seems worse with activity or anxiety. Not currently experiencing. 5. TAP: Not currently experiencing. 6. HEART RATE: Patient reports HR fluctuates from 60 to 140. Currently feels normal. 7. RECURRENT SYMPTOM: On-going for two years. 8. CAUSE: Patient reports that she has high anxiety and she notices when she is experiencing that she also notices the HR to be elevated. 9. CARDIAC HISTORY: No history of heart attack, angina, bypass surgery, angioplasty, arrhythmia. 10. OTHER SYMPTOMS:No symptoms currently. Slight dizziness and shortness of breath sometimes with elevated HR. No chest pain, sweating. Protocols used: Heart Rate and Heartbeat [id number] [facility] 11-30-2024 Instructions Veronica Muse APRN.SUSANA - 11/30/2024 10:40 AM EDT The most commonly used are magnesium 400 to 800 mg daily, riboflavin 400 mg daily. Begin using sumatriptan (Imitrex) to abort your migraine at the first signs of an aura; you may repeat the dose 2 hours later if needed. Use ibuprofen (or another NSAID recommended by your pharmacist) at standard doses for additional pain relief if necessary; avoid products containing aspirin (like Excedrin) as advised by your OB. Start a daily regimen of magnesium 400-800 mg and riboflavin 400 mg to help reduce the frequency of your migraines. documented in this encounter [facility] 11-30-2024 Note HNO ID: [id number] Author: VERONICA MUSE APRN.SUSANA Service: ? Author Type: Nurse Practitioner Type: Progress Notes Filed: 11/30/2024 10:59 Note Text: 11/30/2024 Patient presents with: Headache: Another that started this AM. Has been having one x8 days Recording using HALFP[employer] software for draft documentation of the visit was discussed with the patient/authorized billing customer service representative; all questions welcomed and answered. Patient/authorized billing customer service representative agreed to proceed SUBJECTIVE: This is a 19 year old that is here today for Above Complaints.. Migraines: - Initial onset during teenage years; increased frequency during with daughter 2-3 years ago. - Significant worsening after the of her son, who is currently 10 months old. - Currently experiencing migraines 8-10 days per month since August. - Migraines typically last 3-5 days, with associated dizziness, nausea, and feeling not like myself. - Current episode began on and is ongoing. - Migraines often preceded by visual aura, including flashing lights, underwater vision, and loss of peripheral vision lasting 15-20 minutes. - Pain is usually sharp, progressing to aching, predominantly on the right side behind the eyes, occasionally on the left. - Associated photophobia, phonophobia, and nausea; denies emesis. - Pain described as severe, affecting speech. - Current treatment includes Tylenol, ibuprofen, and essential oils with minimal relief. - No previous prescription medication for migraines. - Currently ; plans to continue for 2 more months. PAST MEDICAL HISTORY Diagnosis Date Acne vulgaris 08/18/2015 Anxiety Bipolar 2 disorder ([facility]) Cough variant asthma ([facility]) 09/27/2016 Depression Migraines PMH - PAST MEDICAL HISTORY OF vascular rose left ankle ALLERGIES Celexa [Citalopram] and Lexapro [Escitalopram] MEDICATIONS Current Outpatient Medications Medication Sig SUMAtriptan (IMITREX) 50 mg tablet Take 1 tablet by mouth as needed for migraine headache (see administration instructions). May repeat dose after 2 hours if needed. Maximum daily dose is 200 mg per day. FLUoxetine (PROZAC) 20 mg capsule Take 1 capsule by mouth once daily. No current facility-administered medications for this visit. Medications and allergies reviewed by this provider. SOCIAL HISTORY Social History Tobacco Use Smoking status: Never Smokeless tobacco: Never Vaping Use Vaping status: Never Used Substance Use Topics Alcohol use: Never Drug use: Never REVIEW OF SYSTEMS All other reviewed and negative other than HPI. OBJECTIVE: BP 108/86 Pulse 66 Resp 16 Wt 78.2 kg (172 lb 6.4 oz) LMP 11/04/2021 SpO2 98% BMI 28.83 kg/m? . Vital signs reviewed by this provider. GENERAL: NAD, alert and oriented SKIN: unremarkable, no rash or skin lesions to exposed skin HEAD: normocephalic EYES: PERRLA, EOMI, conjunctiva clear EARS: external ears normal, canals clear, TM's normal. NOSE/SINUSES: Nares normal. Septum midline. OROPHARYNX: lips, mucosa, and tongue normal, good dentition. No oral lesions noted. NECK: Supple, no lymphadenopathy, normal thyroid, no carotid bruits. LUNGS: Clear to auscultation bilaterally, no wheezes/rhonchi/rales. HEART: Regular rate and rhythm, no murmurs. No ectopy. EXTREMITIES: Normal, No deformities, No skin discoloration, No edema. Neuro: Awake, alert and oriented x 3, Cranial nerves II-XII grossly intact, Reflexes symmetrical, Normal gait, No involuntary motions., and negative findings: speech normal, mental status intact, cranial nerves 2-12 intact, gait, including heel, toe, and tandem walking normal, Romberg negative, muscle tone normal, muscle strength normal, rapid alternating movements normal, finger to nose normal, reflexes normal and symmetric, plantar response downgoing bilaterally Meningococcal B Vaccine(1 of 2 - Standard) Never done Hepatitis C Screening Never done HIV Screening Never done Asthma Control Test due on 08/27/2022 GC (Gonorrhea) Screening (18-24) due on 11/16/2022 Chlamydia Screening (18-24) due on 11/16/2022 Asthma Action Plan due on 08/27/2023 Covid-19 Vaccine( season) Never done Cervical Cancer Screening Never done Influenza Vaccine(Season Ended) due on 03/18/2025 Annual PCP Team Chronic Disease Visit due on 11/30/2025 DTaP,Tdap,Td Vaccine(8 - Td or Tdap) due on 11/03/2032 Hepatitis B Vaccine Completed HPV Vaccine Completed ASSESSMENT/PLAN: 1. Migraine with aura, intractable, without status migrainosus - ICD9: 346.01, ICD10: G43.119 - no red flag symptoms or exam findings - red flag symptoms discussed, verbalizes understanding - Migraines have increased in frequency and severity since the of her son, occurring 8-10 days per month, with associated aura, photophobia, phonophobia, nausea, and dizziness. - Neurological exam is normal. - Discussed abortive treatmen (more content not included)... [facility] 11-30-2024 History of Presen t illness Narrative 11/30/2024 Patient presents with: Headache: Another that started this AM. Has been having one x8 days Recording using HALFPOPS software for draft documentation of the visit was discussed with the patient/authorized billing customer service representative; all questions welcomed and answered. Patient/authorized billing customer service representative agreed to proceed SUBJECTIVE: This is a 19 year old that is here today for Above Complaints.. Migraines: - Initial onset during teenage years; increased frequency during with daughter 2-3 years ago. - Significant worsening after the of her son, who is currently 10 months old. - Currently experiencing migraines 8-10 days per month since August. - Migraines typically last 3-5 days, with associated dizziness, nausea, and feeling not like myself. - Current episode began on and is ongoing. - Migraines often preceded by visual aura, including flashing lights, underwater vision, and loss of peripheral vision lasting 15-20 minutes. - Pain is usually sharp, progressing to aching, predominantly on the right side behind the eyes, occasionally on the left. - Associated photophobia, phonophobia, and nausea; denies emesis. - Pain described as severe, affecting speech. - Current treatment includes Tylenol, ibuprofen, and essential oils with minimal relief. - No previous prescription medication for migraines. - Currently ; plans to continue for 2 more months. PAST MEDICAL HISTORY Diagnosis Date Acne vulgaris 08/18/2015 Anxiety Bipolar 2 disorder ([facility]) Cough variant asthma ([facility]) 09/27/2016 Depression Migraines PMH - PAST MEDICAL HISTORY OF vascular rose left ankle ALLERGIES Celexa [Citalopram] and Lexapro [Escitalopram] MEDICATIONS Current Outpatient Medications Medication Sig SUMAtriptan (IMITREX) 50 mg tablet Take 1 tablet by mouth as needed for migraine headache (see administration instructions). May repeat dose after 2 hours if needed. Maximum daily dose is 200 mg per day. FLUoxetine (PROZAC) 20 mg capsule Take 1 capsule by mouth once daily. No current facility-administered medications for this visit. Medications and allergies reviewed by this provider. SOCIAL HISTORY Social History Tobacco Use Smoking status: Never Smokeless tobacco: Never Vaping Use Vaping status: Never Used Substance Use Topics Alcohol use: Never Drug use: Never REVIEW OF SYSTEMS All other reviewed and negative other than HPI. OBJECTIVE: BP 108/86 Pulse 66 Resp 16 Wt 78.2 kg (172 lb 6.4 oz) LMP 11/04/2021 SpO2 98% BMI 28.83 kg/m . Vital signs reviewed by this provider. GENERAL: NAD, alert and oriented SKIN: unremarkable, no rash or skin lesions to exposed skin HEAD: normocephalic EYES: PERRLA, EOMI, conjunctiva clear EARS: external ears normal, canals clear, TM's normal. NOSE/SINUSES: Nares normal. Septum midline. OROPHARYNX: lips, mucosa, and tongue normal, good dentition. No oral lesions noted. NECK: Supple, no lymphadenopathy, normal thyroid, no carotid bruits. LUNGS: Clear to auscultation bilaterally, no wheezes/rhonchi/rales. HEART: Regular rate and rhythm, no murmurs. No ectopy. EXTREMITIES: Normal, No deformities, No skin discoloration, No edema. Neuro: Awake, alert and oriented x 3, Cranial nerves II-XII grossly intact, Reflexes symmetrical, Normal gait, No involuntary motions., and negative findings: speech normal, mental status intact, cranial nerves 2-12 intact, gait, including heel, toe, and tandem walking normal, Romberg negative, muscle tone normal, muscle strength normal, rapid alternating movements normal, finger to nose normal, reflexes normal and symmetric, plantar response downgoing bilaterally Meningococcal B Vaccine(1 of 2 - Standard) Never done Hepatitis C Screening Never done HIV Screening Never done Asthma Control Test due on 08/27/2022 GC (Gonorrhea) Screening (18-24) due on 11/16/2022 Chlamydia Screening (18-24) due on 11/16/2022 Asthma Action Plan due on 08/27/2023 Covid-19 Vaccine( season) Never done Cervical Cancer Screening Never done Influenza Vaccine(Season Ended) due on 03/18/2025 Annual PCP Team Chronic Disease Visit due on 11/30/2025 DTaP,Tdap,Td Vaccine(8 - Td or Tdap) due on 11/03/2032 Hepatitis B Vaccine Completed HPV Vaccine Completed ASSESSMENT/PLAN: 1. Migraine with aura, intractable, without status migrainosus - ICD9: 346.01, ICD10: G43.119 - no red flag symptoms or exam findings - red flag symptoms discussed, verbalizes understanding - Migraines have increased in frequency and severity since the of her son, occurring 8-10 days per month, with associated aura, photophobia, phonophobia, nausea, and dizziness. - Neurological exam is normal. - Discussed abortive treatment with sumatriptan; potential side effects include jaw pain, chest tightness, and nausea. - Prescribed sumatriptan to be taken at the onset of migraine, with a repeat dose in 2 hours if needed. - Discussed preventative treatments such as propranolol and amitriptyline, but deferred due to current . - Recommended magnesium 400 mg daily and riboflavin 400 mg daily as adjunctive therapy. - Advised use of ibuprofen as needed for additional pain relief, compatible with . - Follow-up to assess efficacy of treatment and adjust as necessary, to ER with red flag symptoms 2. Mother currently breast-feeding (HCC) - ICD9: V24.1, ICD10: Z39.1 - plan as above Veronica Muse APRN.MILL RECORDER Prescription instructions reviewed with patient as applicable. Patient advised if symptoms do not improve or if symptoms worsen sooner, to contact their primary care physician. Potential red flag symptoms discussed with the patient. Reviewed appropriate action plan to take if red flag symptoms occur. Patient agreeable to treatment plan. Medical Decision Making: Problems: Moderate: 1+ chronic illnesses with change Risk: Moderate: Drug management Medical Decision Making Level: 4 - Moderate documented in this encounter [facility] 11-22-2024 Note HNO ID: [id number] Author: MAXINE ELLIS APRN.CNP Service: ? Author Type: Nurse Practitioner Type: Progress Notes Filed: 11/22/2024 08:14 Note Text: Patient did not log in for her virtual appointment with the provider. [facility] 11-22-2024 History of Presen t illness Narrative Patient did not log in for her virtual appointment with the provider. documented in this encounter [facility] 11-06-2024 Note HNO ID: [id number] Author: JAMAL CORTEZ APRN.CNP Service: ? Author Type: Nurse Practitioner Type: Progress Notes Filed: 11/06/2024 09:31 Note Text: Subjective HPI Nontoxic-appearing 19-year-old female presents urgent care chief complaint of urinary frequency back pain dyspareunia. Duration of symptoms 1 week. Associated symptoms listed above. States has right sided flank pain that radiates down the back of her leg. Describes it as sharp. No relieving or exacerbating factors. OTC medications none. Denies any fever body aches chills nausea vomiting. No vaginal discharge itching. No concerns for STDs. Currently breast-feeding. .Patient presents with: Urinary Frequency: urgency and low back pain, requesting hcg- PAST MEDICAL HISTORY Diagnosis Date Acne vulgaris 08/18/2015 Anxiety Bipolar 2 disorder (HCC) Cough variant asthma (HCC) 09/27/2016 Depression PMH - PAST MEDICAL HISTORY OF vascular rose left ankle PAST SURGICAL HISTORY Procedure Laterality Date NONE ALLERGIES Celexa [Citalopram] and Lexapro [Escitalopram] MEDICATIONS FLUoxetine (PROZAC) 20 mg capsule Take 1 capsule by mouth once daily. FAMILY HISTORY Problem Relation Age of Onset Ange Disease Mother other (pulmnary embolism) Father other (mass on liver) Father other (depression and anxiety) Maternal Grandmother Cervical Cancer Maternal Grandmother other ([place]) Maternal Grandfather 49 other (depression and anxiety) Paternal Grandmother Bipolar disorder Paternal Grandmother Anxiety disorder Paternal Grandfather Cancer Other PATERNAL AND MATERNAL SIDES Diabetes Other PATERNAL AND MATERNAL SIDES other (CLOTTING DISORDER) Other PATERNAL SIDE - FACTOR 5 DISORDER Paternal great aunt Social History Tobacco Use Smoking status: Never Smokeless tobacco: Never Vaping Use Vaping status: Never Used Substance Use Topics Alcohol use: Never Drug use: Never BP 120/76 Pulse 72 Temp 36.7 ?C (98.1 ?F) Resp 16 Wt 79.2 kg (174 lb 9.7 oz) LMP 11/04/2021 SpO2 97% BMI 29.20 kg/m? Review of Systems Constitutional: Negative for chills, fever and malaise/fatigue. Cardiovascular: Negative for chest pain. Gastrointestinal: Negative for abdominal pain, constipation, diarrhea, nausea and vomiting. Genitourinary: Positive for flank pain and frequency. Negative for dysuria, hematuria and urgency. Musculoskeletal: Positive for back pain. Negative for myalgias. Objective Physical Exam Vitals and nursing note reviewed. Constitutional: General: She is not in acute distress. Appearance: She is not diaphoretic. HENT: Head: Jaw: No trismus. Right Ear: Hearing normal. No decreased hearing noted. No drainage, swelling or tenderness. Tympanic membrane is not perforated, erythematous or bulging. Left Ear: Hearing normal. No decreased hearing noted. No drainage, swelling or tenderness. Tympanic membrane is not perforated, erythematous or bulging. Mouth/Throat: Pharynx: Uvula midline. No uvula swelling. Tonsils: No tonsillar abscesses. Cardiovascular: Rate and Rhythm: Normal rate and regular rhythm. Pulses: Normal pulses. Pulmonary: Effort: Pulmonary effort is normal. No respiratory distress. Breath sounds: Normal breath sounds. Chest: Chest wall: No tenderness. Abdominal: General: Bowel sounds are normal. There is no distension. Palpations: Abdomen is soft. Abdomen is not rigid. Tenderness: There is abdominal tenderness in the suprapubic area. There is no right CVA tenderness, left CVA tenderness, guarding or rebound. Negative signs include Lopez's sign and McBurney's sign. Comments: mild Musculoskeletal: General: No tenderness. Back: Comments: Tenderness to palpation highlighted area. No spinal tenderness. Lymphadenopathy: Head: Right side of head: No submental, submandibular, tonsillar, preauricular, posterior auricular or occipital adenopathy. Left side of head: No submental, submandibular, tonsillar, preauricular, posterior auricular or occipital adenopathy. Cervical: Right cervical: No superficial or posterior cervical adenopathy. Left cervical: No superficial or posterior cervical adenopathy. Skin: General: Skin is warm and dry. Findings: No rash. Neurological: Mental Status: She is alert and oriented to person, place, and time. ASSESSMENT/PLAN: 1. Urinary frequency - ICD9: 788.41, ICD10: R35.0 (primary diagnosis) - UA DIP, URINE (POC) - HCG QUAL UR B/O - BACTERIAL CULTURE, URINE 2. Low back pain with sciatica, sciatica laterality unspecified, unspecified back pain laterality, unspecified chronicity - ICD9: 724.3, ICD10: M54.40 Diagnosed with urinary frequency and back pain. UA negative. hCG negative. no saddle anesthesia incontinence fever or spinal tenderness. Treat supportively at this point. Patient declined pelvic exam. Will obtain vaginal self swabs. Treat according to swab results. Patient (more content not included)... [facility] History of Presen t illness Narrative Images from the original note were not included. Subjective HPI Nontoxic-appearing 19-year-old female presents urgent care chief complaint of urinary frequency back pain dyspareunia. Duration of symptoms 1 week. Associated symptoms listed above. States has right sided flank pain that radiates down the back of her leg. Describes it as sharp. No relieving or exacerbating factors. OTC medications none. Denies any fever body aches chills nausea vomiting. No vaginal discharge itching. No concerns for STDs. Currently breast-feeding. .Patient presents with: Urinary Frequency: urgency and low back pain, requesting hcg- PAST MEDICAL HISTORY Diagnosis Date Acne vulgaris 08/18/2015 Anxiety Bipolar 2 disorder (HCC) Cough variant asthma (HCC) 09/27/2016 Depression PMH - PAST MEDICAL HISTORY OF vascular rose left ankle PAST SURGICAL HISTORY Procedure Laterality Date NONE ALLERGIES Celexa [Citalopram] and Lexapro [Escitalopram] MEDICATIONS FLUoxetine (PROZAC) 20 mg capsule Take 1 capsule by mouth once daily. FAMILY HISTORY Problem Relation Age of Onset Ange Disease Mother other (pulmnary embolism) Father other (mass on liver) Father other (depression and anxiety) Maternal Grandmother Cervical Cancer Maternal Grandmother other ([place]) Maternal Grandfather 49 other (depression and anxiety) Paternal Grandmother Bipolar disorder Paternal Grandmother Anxiety disorder Paternal Grandfather Cancer Other PATERNAL & MATERNAL SIDES Diabetes Other PATERNAL & MATERNAL SIDES other (CLOTTING DISORDER) Other PATERNAL SIDE - FACTOR 5 DISORDER Paternal great aunt Social History Tobacco Use Smoking status: Never Smokeless tobacco: Never Vaping Use Vaping status: Never Used Substance Use Topics Alcohol use: Never Drug use: Never BP 120/76 Pulse 72 Temp 36.7 C (98.1 F) Resp 16 Wt 79.2 kg (174 lb 9.7 oz) LMP 11/04/2021 SpO2 97% BMI 29.20 kg/m Review of Systems Constitutional: Negative for chills, fever and malaise/fatigue. Cardiovascular: Negative for chest pain. Gastrointestinal: Negative for abdominal pain, constipation, diarrhea, nausea and vomiting. Genitourinary: Positive for flank pain and frequency. Negative for dysuria, hematuria and urgency. Musculoskeletal: Positive for back pain. Negative for myalgias. Objective Physical Exam Vitals and nursing note reviewed. Constitutional: General: She is not in acute distress. Appearance: She is not diaphoretic. HENT: Head: Jaw: No trismus. Right Ear: Hearing normal. No decreased hearing noted. No drainage, swelling or tenderness. Tympanic membrane is not perforated, erythematous or bulging. Left Ear: Hearing normal. No decreased hearing noted. No drainage, swelling or tenderness. Tympanic membrane is not perforated, erythematous or bulging. Mouth/Throat: Pharynx: Uvula midline. No uvula swelling. Tonsils: No tonsillar abscesses. Cardiovascular: Rate and Rhythm: Normal rate and regular rhythm. Pulses: Normal pulses. Pulmonary: Effort: Pulmonary effort is normal. No respiratory distress. Breath sounds: Normal breath sounds. Chest: Chest wall: No tenderness. Abdominal: General: Bowel sounds are normal. There is no distension. Palpations: Abdomen is soft. Abdomen is not rigid. Tenderness: There is abdominal tenderness in the suprapubic area. There is no right CVA tenderness, left CVA tenderness, guarding or rebound. Negative signs include Lopez's sign and McBurney's sign. Comments: mild Musculoskeletal: General: No tenderness. Back: Comments: Tenderness to palpation highlighted area. No spinal tenderness. Lymphadenopathy: Head: Right side of head: No submental, submandibular, tonsillar, preauricular, posterior auricular or occipital adenopathy. Left side of head: No submental, submandibular, tonsillar, preauricular, posterior auricular or occipital adenopathy. Cervical: Right cervical: No superficial or posterior cervical adenopathy. Left cervical: No superficial or posterior cervical adenopathy. Skin: General: Skin is warm and dry. Findings: No rash. Neurological: Mental Status: She is alert and oriented to person, place, and time. ASSESSMENT/PLAN: 1. Urinary frequency - ICD9: 788.41, ICD10: R35.0 (primary diagnosis) - UA DIP, URINE (POC) - HCG QUAL UR B/O - BACTERIAL CULTURE, URINE 2. Low back pain with sciatica, sciatica laterality unspecified, unspecified back pain laterality, unspecified chronicity - ICD9: 724.3, ICD10: M54.40 Diagnosed with urinary frequency and back pain. UA negative. hCG negative. no saddle anesthesia incontinence fever or spinal tenderness. Treat supportively at this point. Patient declined pelvic exam. Will obtain vaginal self swabs. Treat according to swab results. Patient was educated on supportive therapies. Patient will follow up with primary care provider as needed. Patient was instructed to immediately proceed to emergency room for any new, worsening, or symptoms lasting longer than anticipated. The patient's clinical presentation is otherwise unremarkable at this time. Based on exam and clinical finding, the patient is stable for discharge. Plan of care was discussed with patient. Patient verbalizes understanding and agrees to plan of care. This note was generated using [employer] software. It may contain errors in wording, punctuation, or spelling. Jamal Cortez APRN.SUSANA documented in this encounter [facility] 11-01-2024 Note HNO ID: [id number] Author: ?, ?, ? Service: ? Author Type: LICENSED NURSE Type: Progress Notes Filed: 11/01/2024 09:05 Note Text: Patient presents for Hepatitis B vaccine. Denies any problems at this time. Tolerated injection well. Meenakshi Spangler LPN [facility] 11-01-2024 History of Presen t illness Narrative Patient presents for Hepatitis B vaccine. Denies any problems at this time. Tolerated injection well. Meenakshi Spangler LPN documented in this encounter [facility] 10-29-2024 Telephone encounter Note Reviewed lab results. No concerns noted at this time. [facility] 10-29-2024 Miscellaneous Notes Reviewed lab results. No concerns noted at this time. Labs scanned to chart for you to review. Queta Mccarty LPN documented in this encounter [facility] 10-29-2024 Telephone encounter Note Labs scanned to chart for you to review. Queta Mccarty LPN [facility] 10-24-2024 Telephone encounter Note Patient returned call and went over results, notes from Dr Fernández with understanding. Scheduled nurse visit for Hep B vaccine injection number 1 for 11/01/2024 with Nurse. [facility] 10-24-2024 Miscellaneous Notes Patient returned call and went over results, notes from Dr Fernández with understanding. Scheduled nurse visit for Hep B vaccine injection number 1 for 11/01/2024 with Nurse. Left message for return call. Meenakshi Spangler LPN Confirmed labs show no immunity. Orders approved for Hepatitis B series. Please schedule for NV. Received. Placed on providers desk for review. Yohana Bird LPN Can we get records so I can review before placing orders for vaccines? Patient calls and states that she had Hepatitis B titers done at [facility]. Patient reports that titers showed that she is not immune to Hepatis B. Patient asking if she needs to come in and get vaccines done? Patient will have lab results faxed to office. Please review and advise, Antoinette Burgess RN documented in this encounter [facility] 10-24-2024 Telephone encounter Note Left message for return call. Meenakshi Spangler LPN [facility] 10-24-2024 Telephone encounter Note Confirmed labs show no immunity. Orders approved for Hepatitis B series. Please schedule for NV. [facility] 10-24-2024 Telephone encounter Note Received. Placed on providers desk for review. Yohana Bird LPN [facility] 10-23-2024 Telephone encounter Note Can we get records so I can review before placing orders for vaccines? [facility] 10-23-2024 Telephone encounter Note Patient calls and states that she had Hepatitis B titers done at [facility]. Patient reports that titers showed that she is not immune to Hepatis B. Patient asking if she needs to come in and get vaccines done? Patient will have lab results faxed to office. Please review and advise, Antoinette Burgess RN [facility] 10-19-2024 Instructions Maxine Ellis, CERTIFIED DIETARY MANAGER.MILL RECORDER - 10/19/2024 6:42 PM EDT TREATMENT PLAN: Discontinue Zoloft due to lack of benefit at lower dose and lack of tolerability at higher dose. Start Prozac 20 mg to address mood and anxiety symptoms. Restart individual psychotherapy to discuss the increase in relationship based stress. Follow up in 5 weeks as scheduled. For those experiencing a suicidal crisis: --call the National Suicide Prevention Lifeline at 988 (259-005-5782) --text the Crisis Text Line (text HOME to 583353) --call 911 and let them know you are having a mental health crisis or go to your nearest Emergency Room for stabilization. --You can also call Mobile Crisis at 123-046-8463. -- You may call the department appointment line at [phone] to schedule your appointment. -- Please call my nurse at [phone] or send me a message in [employer] with any questions or concerns between appointments. documented in this encounter [facility] 10-18-2024 Note HNO ID: [id number] Author: MAXINE ELLIS APRN.SUSANA Service: ? Author Type: Nurse Practitioner Type: Progress Notes Filed: 10/19/2024 18:43 Note Text: FOLLOW UP - PSYCHIATRIC PROGRESS NOTE PATIENT: Shawanda Brink DATE: October 18, 2024 Visit Type: Virtual Visit utilizing two-way audio and video for at least a portion of the visit. Consent for virtual visit obtained verbally. Confidentiality limitations with virtual visits reviewed with the patient and guardian, if present, who have accepted the risk verbally prior to proceeding with encounter. I have communicated my name and active licensure. The patient's identity and physical location were verified at the time of this visit. Either the patient or their legal billing customer service representative has been informed of the risks and benefits of -- and alternatives to -- treatment through a remote evaluation and consents to proceed with the evaluation remotely. All information is from Patient report except when noted. This evaluation is NOT intended for forensic, disability or child custody purposes. CC: Presenting today for follow up regarding psychiatric medication management. HPI: Treatment Plan from Last Visit on 08/14/2024: TREATMENT PLAN: Increase Zoloft to 100 mg once daily. Continue to take it in the evening or night time. Set alarms to help you take it consistently. Monitor for any increase in anxiety symptoms as you work on weaning off . 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 Complete the CMP lab work for monitoring. Focus on improving fluid intake and hydration. Follow up in 6 weeks or sooner if needed. Today Shawanda shares that I have been good. Feeling better depression lorenzo. A lot has happened in her life. My fiance and I split up but we are now trying to work on things. She has been experiencing panic attacks. She could not tolerate Zoloft 100 mg and lowered it back to 50 mg. She tried to ween off breast feeding but she is still pumping. Would like to try a different medication instead of trying 75 mg of Zoloft. In agreement to try Prozac instead to address mood and anxiety symptoms. She has not gone to her therapy appointment in the past month. [facility] Encouraged to reach out to them again to schedule an appointment. She shares that she has completed some blood work at [place] and will be able to share those results with us. Interval Progress: Slightly worse PATIENT DATA: Generalized Anxiety Disorder Scale (MARK-7) 05/15/2024 08/14/2024 10/18/2024 MARK - 7 SCORES Score 20 15 18 (0-4) minimal anxiety, (5-9) mild anxiety, (10-14) moderate anxiety, (15-21) severe anxiety Patient Health Questionnaire (PHQ-9) 04/13/2024 08/14/2024 10/18/2024 PHQ-9 Score 21 12 8 (0-4) minimal depression, (5-9) mild depression, (10-14) moderate depression, (15-19) moderately severe depression, (20-27) severe depression PAST MEDICAL HISTORY Diagnosis Date Acne vulgaris 08/18/2015 Anxiety Bipolar 2 disorder (HCC) Cough variant asthma 09/27/2016 Depression PMH - PAST MEDICAL HISTORY OF vascular rose left ankle PAST SURGICAL HISTORY Procedure Laterality Date NONE ALLERGIES Allergen Reactions Celexa [Citalopram] Other: See Comments Tunnel vision Lexapro [Escitalopr* Rash Current Outpatient Medications on File Prior to Visit Medication Sig sertraline (ZOLOFT) 100 mg tablet Take 1 tablet by mouth once daily. No current facility-administered medications on file prior to visit. ROS: See HPI PFSH: See HPI VITAL SIGNS: There were no vitals filed for this visit. Last 3 Encounter BP Readings: Date: BP: 09/12/2024 120/70 05/14/2024 110/78 03/21/2024 122/82 MENTAL STATUS EXAMINATION: Appearance: Well dressed, well groomed Behavior: Behaves appropriately during the encounter Social relatedness: Euthymic Speech/Language: The patient demonstrates appropriate tone, prosody, cipriano, phonetics, and syntax Mood: euthymic Affect: Full and appropriate to topic Orientation: Person, Place, Time and Situation Associations: Intact and linear Hallucinations: None Delusions: None Suicidal Ideation: No suicidal ideation, intent or plan. Homicidal Ideation: No homicidal ideation, intent or plan. Insight: Appropriate Judgment: Appropriate DATA REVIEWED: Psychiatric scales, Electronic medical record, Labs DIAGNOSIS: Mark (generalized anxiety disorder) (primary encounter diagnosis) Moderate episode of recurrent major depressive disorder (hcc) Social anxiety disorder Encounter for long-term (current) use of medications Psychosocial stressors GAF: -60-51 Moderate symptoms or moderate difficulty in social, occupational or school functioning. TREATMENT PLAN: Discontinue Zoloft due to lack of benefit at lower dose and lack of tolerability at higher dose. S (more content not included)... [facility] 10-18-2024 History of Presen t illness Narrative Images from the original note were not included. FOLLOW UP - PSYCHIATRIC PROGRESS NOTE PATIENT: Shawanda Brink DATE: October 18, 2024 Visit Type: Virtual Visit utilizing two-way audio and video for at least a portion of the visit. Consent for virtual visit obtained verbally. Confidentiality limitations with virtual visits reviewed with the patient and guardian, if present, who have accepted the risk verbally prior to proceeding with encounter. I have communicated my name and active licensure. The patient's identity and physical location were verified at the time of this visit. Either the patient or their legal billing customer service representative has been informed of the risks and benefits of -- and alternatives to -- treatment through a remote evaluation and consents to proceed with the evaluation remotely. All information is from Patient report except when noted. This evaluation is NOT intended for forensic, disability or child custody purposes. CC: Presenting today for follow up regarding psychiatric medication management. HPI: Treatment Plan from Last Visit on 08/14/2024: TREATMENT PLAN: Increase Zoloft to 100 mg once daily. Continue to take it in the evening or night time. Set alarms to help you take it consistently. Monitor for any increase in anxiety symptoms as you work on weaning off . 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 Complete the CMP lab work for monitoring. Focus on improving fluid intake and hydration. Follow up in 6 weeks or sooner if needed. Today Shawanad shares that I have been good. Feeling better depression lorenzo. A lot has happened in her life. My fiance and I split up but we are now trying to work on things. She has been experiencing panic attacks. She could not tolerate Zoloft 100 mg and lowered it back to 50 mg. She tried to ween off breast feeding but she is still pumping. Would like to try a different medication instead of trying 75 mg of Zoloft. In agreement to try Prozac instead to address mood and anxiety symptoms. She has not gone to her therapy appointment in the past month. Was going to [facility]. Encouraged to reach out to them again to schedule an appointment. She shares that she has completed some blood work at [place] and will be able to share those results with us. Interval Progress: Slightly worse PATIENT DATA: Generalized Anxiety Disorder Scale (MARK-7) 05/15/2024 08/14/2024 10/18/2024 MARK - 7 SCORES Score 20 15 18 (0-4) minimal anxiety, (5-9) mild anxiety, (10-14) moderate anxiety, (15-21) severe anxiety Patient Health Questionnaire (PHQ-9) 04/13/2024 08/14/2024 10/18/2024 PHQ-9 Score 21 12 8 (0-4) minimal depression, (5-9) mild depression, (10-14) moderate depression, (15-19) moderately severe depression, (20-27) severe depression PAST MEDICAL HISTORY Diagnosis Date Acne vulgaris 08/18/2015 Anxiety Bipolar 2 disorder (HCC) Cough variant asthma 09/27/2016 Depression PMH - PAST MEDICAL HISTORY OF vascular rose left ankle PAST SURGICAL HISTORY Procedure Laterality Date NONE ALLERGIES Allergen Reactions Celexa [Citalopram] Other: See Comments Tunnel vision Lexapro [Escitalopr* Rash Current Outpatient Medications on File Prior to Visit Medication Sig sertraline (ZOLOFT) 100 mg tablet Take 1 tablet by mouth once daily. No current facility-administered medications on file prior to visit. ROS: See HPI PFSH: See HPI VITAL SIGNS: There were no vitals filed for this visit. Last 3 Encounter BP Readings: Date: BP: 09/12/2024 120/70 05/14/2024 110/78 03/21/2024 122/82 MENTAL STATUS EXAMINATION: Appearance: Well dressed, well groomed Behavior: Behaves appropriately during the encounter Social relatedness: Euthymic Speech/Language: The patient demonstrates appropriate tone, prosody, cipriano, phonetics, and syntax Mood: euthymic Affect: Full and appropriate to topic Orientation: Person, Place, Time and Situation Associations: Intact and linear Hallucinations: None Delusions: None Suicidal Ideation: No suicidal ideation, intent or plan. Homicidal Ideation: No homicidal ideation, intent or plan. Insight: Appropriate Judgment: Appropriate DATA REVIEWED: Psychiatric scales, Electronic medical record, Labs DIAGNOSIS: Mark (generalized anxiety disorder) (primary encounter diagnosis) Moderate episode of recurrent major depressive disorder (hcc) Social anxiety disorder Encounter for long-term (current) use of medications Psychosocial stressors GAF: -60-51 Moderate symptoms or moderate difficulty in social, occupational or school functioning. TREATMENT PLAN: Discontinue Zoloft due to lack of benefit at lower dose and lack of tolerability at higher dose. Start Prozac 20 mg to address mood and anxiety symptoms. Restart individual psychotherapy to discuss the increase in relationship based stress. Follow up in 5 weeks as scheduled. MEDICATION CHANGES: Prescriptions given See above. Risks and benefits of the medication, including any black box warnings, were discussed with the patient. Patient is aware to reach out with any questions, concerns, or worsening of symptoms prior to the next appointment. Patient educated on risks of substance use in combination with medications and advised that any substance use along with medications may alter their effectiveness. Follow Up: See Treatment Plan Medical Decision Making: Problems: Moderate: 1+ chronic illnesses with change Data: Unique source(s) for external note(s) reviewed: 3+ Unique test result(s) reviewed: 3+ Independent interpretation of test from other physician/QHCP Risk: Moderate: Moderate risk from testing/treatment and Drug management Medical Decision Making Level: 4 - Moderate ADD ON PSYCHOTHERAPY CODE : No SIGNATURE: Maxine Ellis APRN.CNP PATIENT NAME: Shawanda Brink DATE: October 18, 2024 TIME: 8:12 AM documented in this encounter [facility] 09-25-2024 Note HNO ID: [id number] Author: MAXINE ELLIS APRN.CNP Service: ? Author Type: Nurse Practitioner Type: Progress Notes Filed: 09/25/2024 08:54 Note Text: Patient cancelled the appointment right before her appointment with the provider. [facility] 09-12-2024 Note SARS-COV-2 (AGENT OF COVID-19) RNA: Not detected INFLUENZA A RNA: Not detected INFLUENZA B RNA: Not detected RESPIRATORY SYNCYTIAL VIRUS (RSV) RNA: Not detected [facility] Comment on above: Performed By: #### [id number] ####[facility] [id number] [address] 09-12-2024 Note HNO ID: [id number] Author: BHARAT MOSHER MD Service: ? Author Type: Physician Type: Progress Notes Filed: 09/12/2024 16:33 Note Text: Patient presents with: Nasal Congestion: drainage, cough, upset stomach x 2 days HPI: Feeling sick for 48 hours Positive symptoms: Cough, Nasal Congestion, Rhinorrhea, sinus pressure, stomach cramps and backache, improved Sore throat, Chills, Negative symptoms: Shortness of breath, Vomiting, Diarrhea, OTC: Sinus, Afrin nose spray Currently breast-feeding. MEDICATIONS: Current Outpatient Medications Medication Sig sertraline (ZOLOFT) 100 mg tablet Take 1 tablet by mouth once daily. No current facility-administered medications for this visit. ALLERGIES: ALLERGIES Allergen Reactions Celexa [Citalopram] Other: See Comments Tunnel vision Lexapro [Escitalopr* Rash VITALS: BP 120/70 Pulse 86 Temp 36.9 ?C (98.4 ?F) Resp 16 Wt 83.6 kg (184 lb 4.9 oz) LMP 11/04/2021 SpO2 99% BMI 30.82 kg/m? PHYSICAL EXAM: GEN: mildly ill appearing HEENT: PERRL, EOMI, conjunctiva clear Ears: Right canal occluded by cerumen. LTM without erythema, bulge, or effusion Sinuses: non-tender frontal sinus, non-tender maxillary sinuses Throat: moist mucous membranes, mild erythema, no exudate Neck: supple, no thyromegaly, no lymphadenopathy HEART: regular rate, regular rhythm, no murmurs LUNGS: clear to auscultation, no wheezes or crackles, no increased WOB ASSESSMENT/PLAN: 1. URI, acute - ICD9: 465.9, ICD10: J06.9 - suspect viral URI, differential includes influenza and COVID-19. - Discussed supportive care treatment with home isolation (fever free for 24 hours and improving symptoms), rest, cold medicine, and analgesia. - Red flags to seek further treatment include chest pain, shortness of breath, and lethargy; in the ER if severe. 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 Bharat Mosher MD [facility] 09-12-2024 History of Presen t illness Narrative Patient presents with: Nasal Congestion: drainage, cough, upset stomach x 2 days HPI: Feeling sick for 48 hours Positive symptoms: Cough, Nasal Congestion, Rhinorrhea, sinus pressure, stomach cramps and backache, improved Sore throat, Chills, Negative symptoms: Shortness of breath, Vomiting, Diarrhea, OTC: Sinus, Afrin nose spray Currently breast-feeding. MEDICATIONS: Current Outpatient Medications Medication Sig sertraline (ZOLOFT) 100 mg tablet Take 1 tablet by mouth once daily. No current facility-administered medications for this visit. ALLERGIES: ALLERGIES Allergen Reactions Celexa [Citalopram] Other: See Comments Tunnel vision Lexapro [Escitalopr* Rash VITALS: BP 120/70 Pulse 86 Temp 36.9 C (98.4 F) Resp 16 Wt 83.6 kg (184 lb 4.9 oz) LMP 11/04/2021 SpO2 99% BMI 30.82 kg/m PHYSICAL EXAM: GEN: mildly ill appearing HEENT: PERRL, EOMI, conjunctiva clear Ears: Right canal occluded by cerumen. LTM without erythema, bulge, or effusion Sinuses: non-tender frontal sinus, non-tender maxillary sinuses Throat: moist mucous membranes, mild erythema, no exudate Neck: supple, no thyromegaly, no lymphadenopathy HEART: regular rate, regular rhythm, no murmurs LUNGS: clear to auscultation, no wheezes or crackles, no increased WOB ASSESSMENT/PLAN: 1. URI, acute - ICD9: 465.9, ICD10: J06.9 - suspect viral URI, differential includes influenza and COVID-19. - Discussed supportive care treatment with home isolation (fever free for 24 hours and improving symptoms), rest, cold medicine, and analgesia. - Red flags to seek further treatment include chest pain, shortness of breath, and lethargy; in the ER if severe. 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 Bharat Mosher MD documented in this encounter [facility] 08-14-2024 Instructions Maxine Ellis, CERTIFIED DIETARY MANAGER.MILL RECORDER - 08/14/2024 9:04 AM EST TREATMENT PLAN: Increase Zoloft to 100 mg once daily. Continue to take it in the evening or night time. Set alarms to help you take it consistently. Monitor for any increase in anxiety symptoms as you work on weaning off . 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 Follow up in 6 weeks or sooner if needed. For those experiencing a suicidal crisis: --call the National Suicide Prevention Lifeline at 744 (438-379-2058) --text the Crisis Text Line (text HOME to 920343) --call 511 and let them know you are having a mental health crisis or go to your nearest Emergency Room for stabilization. --You can also call Mobile Crisis at [phone]. -- You may call the department appointment line at [phone] to schedule your appointment. -- Please call my nurse at [phone] or send me a message in Entelo with any questions or concerns between appointments. documented in this encounter [facility] 08-14-2024 Note HNO ID: [id number] Author: MAXINE ELLIS APRN.SUSANA Service: ? Author Type: Nurse Practitioner Type: Progress Notes Filed: 08/21/2024 23:10 Note Text: FOLLOW UP - PSYCHIATRIC PROGRESS NOTE PATIENT: Shawanda Brink DATE: August 14, 2024 Visit Type: Virtual Visit utilizing two-way audio and video for at least a portion of the visit. Consent for virtual visit obtained verbally. Confidentiality limitations with virtual visits reviewed with the patient and guardian, if present, who have accepted the risk verbally prior to proceeding with encounter. I have communicated my name and active licensure. The patient's identity and physical location were verified at the time of this visit. Either the patient or their legal billing customer service representative has been informed of the risks and benefits of -- and alternatives to -- treatment through a remote evaluation and consents to proceed with the evaluation remotely. All information is from Patient report except when noted. This evaluation is NOT intended for forensic, disability or child custody purposes. CC: Presenting today for follow up regarding psychiatric medication management. HPI: Treatment Plan from Last Visit on 05/17/2024: TREATMENT PLAN: Start Zoloft 50 mg to address her anxiety symptoms. Patient reports tolerating this medication and reporting benefit in the past. Engage in individual psychotherapy to learn coping skills to manage anxiety symptoms. Follow up in 4 to 6 weeks. Today Shawanda shares that she experienced some difficulties logging in through Rain for the appointment. She is 6 months now. I am feeling good right now but my mind is staying busy. Shares that she is experiencing some feelings of anger and anxiety. Initially she was inconsistent with taking Zoloft. But since she has been taking it consistently for the past week, she has noticed some improvement. Denies any side effects from the Zoloft. Takes it at night time. Gets overwhelmed in balancing all the responsibilities on her. 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 Struggled slightly with the idea of having the children in babysitting. But has tolerated that better. Has been trying to think positive. Happy that daughter will have some social interaction. Shares that she is experiencing some migraines. Notices that if she doesn't drink enough fluids or drinks too much caffeine it can trigger migraines. No concerns with her sleep and appetite. She was engaged in talk therapy but forgot her appointment with Toshia. Plans on reaching out to Toshia to reschedule. Is currently . Last week, she started doing combination feeding by incorporating formula. Son is eating solids well. Plans on weaning off in 2 months. Discussed watching for increase in anxiety symptoms during the weaning. Interval Progress: Slightly worse PATIENT DATA: Generalized Anxiety Disorder Scale (MARK-7) 04/13/2024 05/15/2024 08/14/2024 MARK - 7 SCORES Score 20 20 15 (0-4) minimal anxiety, (5-9) mild anxiety, (10-14) moderate anxiety, (15-21) severe anxiety Patient Health Questionnaire (PHQ-9) 03/20/2024 04/13/2024 08/14/2024 PHQ-9 Score 15 21 12 (0-4) minimal depression, (5-9) mild depression, (10-14) moderate depression, (15-19) moderately severe depression, (20-27) severe depression PAST MEDICAL HISTORY Diagnosis Date Acne vulgaris 08/18/2015 Anxiety Bipolar 2 disorder (HCC) Cough variant asthma 09/27/2016 Depression PMH - PAST MEDICAL HISTORY OF vascular rose left ankle PAST SURGICAL HISTORY Procedure Laterality Date NONE ALLERGIES Allergen Reactions Celexa [Citalopram] Other: See Comments Tunnel vision Lexapro [Escitalopr* Rash Current Outpatient Medications on File Prior to Visit Medication Sig sertraline (ZOLOFT) 50 mg tablet Take 1 tablet by mouth once daily. No current facility-administered medications on file prior to visit. ROS: See HPI PFSH: See HPI VITAL SIGNS: There were no vitals filed for this visit. Last 3 Encounter BP Readings: Date: BP: 05/14/2024 110/78 03/21/2024 122/82 01/27/2024 152/72 MENTAL STATUS EXAMINATION: Appearance: Casually dressed, well groomed Behavior: Behaves appropriately during the encounter Social relatedness: Euthymic Speech/Language: The patient demonstrates appropriate tone, prosody, cipriano, phonetics, and syntax Mood: concerned Affect: Full and appropriate to topic Orientation: Person, Place, Time and Situation Associations: Intact and linear Hallucinations: None Delusions: None Suicidal Ideation: No suicidal ideation, intent or plan. Homicidal Ideation: No homicidal ideation, intent or plan. Insight: Appropriate Judgment: Appropriate DATA REVIEWED: Psychiatric scales, Electronic medical record, Labs DIAGNOSIS: anxiety (primary encounter diagnosi (more content not included)... [facility] 08-14-2024 History of Presen t illness Narrative Images from the original note were not included. FOLLOW UP - PSYCHIATRIC PROGRESS NOTE PATIENT: Shawanda Brink DATE: August 14, 2024 Visit Type: Virtual Visit utilizing two-way audio and video for at least a portion of the visit. Consent for virtual visit obtained verbally. Confidentiality limitations with virtual visits reviewed with the patient and guardian, if present, who have accepted the risk verbally prior to proceeding with encounter. I have communicated my name and active licensure. The patient's identity and physical location were verified at the time of this visit. Either the patient or their legal billing customer service representative has been informed of the risks and benefits of -- and alternatives to -- treatment through a remote evaluation and consents to proceed with the evaluation remotely. All information is from Patient report except when noted. This evaluation is NOT intended for forensic, disability or child custody purposes. CC: Presenting today for follow up regarding psychiatric medication management. HPI: Treatment Plan from Last Visit on 05/17/2024: TREATMENT PLAN: Start Zoloft 50 mg to address her anxiety symptoms. Patient reports tolerating this medication and reporting benefit in the past. Engage in individual psychotherapy to learn coping skills to manage anxiety symptoms. Follow up in 4 to 6 weeks. Today Shawanda shares that she experienced some difficulties logging in through Rain for the appointment. She is 6 months now. I am feeling good right now but my mind is staying busy. Shares that she is experiencing some feelings of anger and anxiety. Initially she was inconsistent with taking Zoloft. But since she has been taking it consistently for the past week, she has noticed some improvement. Denies any side effects from the Zoloft. Takes it at night time. Gets overwhelmed in balancing all the responsibilities on her. 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 Struggled slightly with the idea of having the children in babysitting. But has tolerated that better. Has been trying to think positive. Happy that daughter will have some social interaction. Shares that she is experiencing some migraines. Notices that if she doesn't drink enough fluids or drinks too much caffeine it can trigger migraines. No concerns with her sleep and appetite. She was engaged in talk therapy but forgot her appointment with Toshia. Plans on reaching out to Toshia to reschedule. Is currently . Last week, she started doing combination feeding by incorporating formula. Son is eating solids well. Plans on weaning off in 2 months. Discussed watching for increase in anxiety symptoms during the weaning. Interval Progress: Slightly worse PATIENT DATA: Generalized Anxiety Disorder Scale (MARK-7) 04/13/2024 05/15/2024 08/14/2024 MARK - 7 SCORES Score 20 20 15 (0-4) minimal anxiety, (5-9) mild anxiety, (10-14) moderate anxiety, (15-21) severe anxiety Patient Health Questionnaire (PHQ-9) 03/20/2024 04/13/2024 08/14/2024 PHQ-9 Score 15 21 12 (0-4) minimal depression, (5-9) mild depression, (10-14) moderate depression, (15-19) moderately severe depression, (20-27) severe depression PAST MEDICAL HISTORY Diagnosis Date Acne vulgaris 08/18/2015 Anxiety Bipolar 2 disorder (HCC) Cough variant asthma 09/27/2016 Depression PMH - PAST MEDICAL HISTORY OF vascular rose left ankle PAST SURGICAL HISTORY Procedure Laterality Date NONE ALLERGIES Allergen Reactions Celexa [Citalopram] Other: See Comments Tunnel vision Lexapro [Escitalopr* Rash Current Outpatient Medications on File Prior to Visit Medication Sig sertraline (ZOLOFT) 50 mg tablet Take 1 tablet by mouth once daily. No current facility-administered medications on file prior to visit. ROS: See HPI PFSH: See HPI VITAL SIGNS: There were no vitals filed for this visit. Last 3 Encounter BP Readings: Date: BP: 05/14/2024 110/78 03/21/2024 122/82 01/27/2024 152/72 MENTAL STATUS EXAMINATION: Appearance: Casually dressed, well groomed Behavior: Behaves appropriately during the encounter Social relatedness: Euthymic Speech/Language: The patient demonstrates appropriate tone, prosody, cipriano, phonetics, and syntax Mood: concerned Affect: Full and appropriate to topic Orientation: Person, Place, Time and Situation Associations: Intact and linear Hallucinations: None Delusions: None Suicidal Ideation: No suicidal ideation, intent or plan. Homicidal Ideation: No homicidal ideation, intent or plan. Insight: Appropriate Judgment: Appropriate DATA REVIEWED: Psychiatric scales, Electronic medical record, Labs DIAGNOSIS: anxiety (primary encounter diagnosis) Moderate episode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 Female. status: : No status: NO. PATIENT RELEVANT IMPLANT DATA REVIEWED: Yes PATIENT PRESENTS WITH AN IMPLANTABLE OR ATTACHED TELEPHONE CLERK TELEGRAPH OFFICE: No RADIOLOGY DEPARTMENT: General X-ray: Exam(s) Completed: Chest X-Ray PERIPHERAL IV DATA: Not applicable SIGNED BY: RT Miguel(R) May 14, 2024 11:37 AM [facility] 05-14-2024 Note HNO ID: [id number] Author: SANTOS SOLER APRN.MILL RECORDER Service: ? Author Type: Nurse Practitioner Type: Progress Notes Filed: 05/14/2024 12:33 Note Text: Subjective HPI HPI Shawanda Brink is a 18 year old female who presents today for CC of cough, sinus pressure, h/a, fever. This started 8 days ago. Has tried otc medication for relief. Symptoms are worsened by nothing. Risk factors sick exposures. Nonsmoker. . Denies possibility of being . .Patient presents with: Cough: Cough, congestion, fever, AKERS and sinus x 8 days PAST MEDICAL HISTORY Diagnosis Date Acne vulgaris 08/18/2015 Anxiety Bipolar 2 disorder (HCC) Cough variant asthma 09/27/2016 Depression PMH - PAST MEDICAL HISTORY OF vascular rose left ankle PAST SURGICAL HISTORY Procedure Laterality Date NONE ALLERGIES Celexa [Citalopram] and Lexapro [Escitalopram] MEDICATIONS Zinc Gluconate 100 mg tab Take by mouth. albuterol HFA (PROVENTIL HFA, VENTOLIN HFA) 90 mcg/actuation inhaler Inhale 2 Puffs as instructed every 6 hours as needed for wheezing/shortness of breath. Administer using a spacer. (Patient not taking: Reported on 11/05/2021 ) FAMILY HISTORY Problem Relation Age of Onset Ange Disease Mother other (pulmnary embolism) Father other (mass on liver) Father other (depression and anxiety) Maternal Grandmother Cervical Cancer Maternal Grandmother other ([place]) Maternal Grandfather 49 other (depression and anxiety) Paternal Grandmother Bipolar disorder Paternal Grandmother Anxiety disorder Paternal Grandfather Cancer Other PATERNAL AND MATERNAL SIDES Diabetes Other PATERNAL AND MATERNAL SIDES other (CLOTTING DISORDER) Other PATERNAL SIDE - FACTOR 5 DISORDER Paternal great aunt Social History Tobacco Use Smoking status: Never Smokeless tobacco: Never Vaping Use Vaping status: Never Used Substance Use Topics Alcohol use: Never Drug use: Never Review of Systems Constitutional: Negative for fever. HENT: Positive for congestion, sinus pain and sore throat. Negative for ear pain and nosebleeds. Respiratory: Positive for cough, hemoptysis, sputum production and shortness of breath. Negative for wheezing. Cardiovascular: Negative for chest pain. Musculoskeletal: Negative for neck pain. Skin: Negative for itching and rash. Neurological: Positive for headaches. Objective Blood pressure 110/78, pulse 97, temperature 36.6 ?C (97.9 ?F), temperature source Tympanic, resp. rate 18, weight 83.8 kg (184 lb 11.9 oz), last menstrual period 11/04/2021, SpO2 99%. Physical Exam Constitutional: General: She is not in acute distress. Appearance: She is not toxic-appearing or diaphoretic. HENT: Head: Normocephalic and atraumatic. Cardiovascular: Rate and Rhythm: Normal rate and regular rhythm. Heart sounds: Normal heart sounds, S1 normal and S2 normal. Pulmonary: Effort: Pulmonary effort is normal. Breath sounds: Rhonchi (scattered bilat) present. No decreased breath sounds, wheezing or rales. Neurological: Mental Status: She is alert and oriented to person, place, and time. Gait: Gait is intact. ASSESSMENT/PLAN: 1. Sinobronchitis - ICD9: 473.9, 490, ICD10: J32.9, J40 (primary diagnosis) - Will begin treatment with as per antibiotic as written, see orders - Supportive care with plenty of fluids, rest, and analgesia prn. - Follow up in 3-5 days if symptoms persist or worsen. - AMOXICILLIN 875 MG-POTASSIUM CLAVULANATE 125 MG TABLET 2. Acute cough - ICD9: 786.2, ICD10: R05.1 - XR CHEST 2V FRONTAL/LAT IMPRESSION: No acute radiographic abnormality. Dictated by : MD Santos BURGOS APRN.[facility] 05-14-2024 History of Presen t illness Narrative Subjective HPI HPI Shawanda Brink is a 18 year old female who presents today for CC of cough, sinus pressure, h/a, fever. This started 8 days ago. Has tried otc medication for relief. Symptoms are worsened by nothing. Risk factors sick exposures. Nonsmoker. . Denies possibility of being . .Patient presents with: Cough: Cough, congestion, fever, AKERS and sinus x 8 days PAST MEDICAL HISTORY Diagnosis Date Acne vulgaris 08/18/2015 Anxiety Bipolar 2 disorder (HCC) Cough variant asthma 09/27/2016 Depression PMH - PAST MEDICAL HISTORY OF vascular rose left ankle PAST SURGICAL HISTORY Procedure Laterality Date NONE ALLERGIES Celexa [Citalopram] and Lexapro [Escitalopram] MEDICATIONS Zinc Gluconate 100 mg tab Take by mouth. albuterol HFA (PROVENTIL HFA, VENTOLIN HFA) 90 mcg/actuation inhaler Inhale 2 Puffs as instructed every 6 hours as needed for wheezing/shortness of breath. Administer using a spacer. (Patient not taking: Reported on 11/05/2021 ) FAMILY HISTORY Problem Relation Age of Onset Ange Disease Mother other (pulmnary embolism) Father other (mass on liver) Father other (depression and anxiety) Maternal Grandmother Cervical Cancer Maternal Grandmother other ([place]) Maternal Grandfather 49 other (depression and anxiety) Paternal Grandmother Bipolar disorder Paternal Grandmother Anxiety disorder Paternal Grandfather Cancer Other PATERNAL & MATERNAL SIDES Diabetes Other PATERNAL & MATERNAL SIDES other (CLOTTING DISORDER) Other PATERNAL SIDE - FACTOR 5 DISORDER Paternal great aunt Social History Tobacco Use Smoking status: Never Smokeless tobacco: Never Vaping Use Vaping status: Never Used Substance Use Topics Alcohol use: Never Drug use: Never Review of Systems Constitutional: Negative for fever. HENT: Positive for congestion, sinus pain and sore throat. Negative for ear pain and nosebleeds. Respiratory: Positive for cough, hemoptysis, sputum production and shortness of breath. Negative for wheezing. Cardiovascular: Negative for chest pain. Musculoskeletal: Negative for neck pain. Skin: Negative for itching and rash. Neurological: Positive for headaches. Objective Blood pressure 110/78, pulse 97, temperature 36.6 C (97.9 F), temperature source Tympanic, resp. rate 18, weight 83.8 kg (184 lb 11.9 oz), last menstrual period 11/04/2021, SpO2 99%. Physical Exam Constitutional: General: She is not in acute distress. Appearance: She is not toxic-appearing or diaphoretic. HENT: Head: Normocephalic and atraumatic. Cardiovascular: Rate and Rhythm: Normal rate and regular rhythm. Heart sounds: Normal heart sounds, S1 normal and S2 normal. Pulmonary: Effort: Pulmonary effort is normal. Breath sounds: Rhonchi (scattered bilat) present. No decreased breath sounds, wheezing or rales. Neurological: Mental Status: She is alert and oriented to person, place, and time. Gait: Gait is intact. ASSESSMENT/PLAN: 1. Sinobronchitis - ICD9: 473.9, 490, ICD10: J32.9, J40 (primary diagnosis) - Will begin treatment with as per antibiotic as written, see orders - Supportive care with plenty of fluids, rest, and analgesia prn. - Follow up in 3-5 days if symptoms persist or worsen. - AMOXICILLIN 875 MG-POTASSIUM CLAVULANATE 125 MG TABLET 2. Acute cough - ICD9: 786.2, ICD10: R05.1 - XR CHEST 2V FRONTAL/LAT IMPRESSION: No acute radiographic abnormality. Dictated by : MD Santos BURGOS APRN.MILL RECORDER documented in this encounter [facility] 04-13-2024 Note HNO ID: [id number] Author: TOSHIA HESS LPCC Service: ? Author Type: Counselor Type: Progress Notes Filed: 04/13/2024 09:38 Note Text: GENERAL PSYCHOLOGY Patient was seen for an initial evaluation. All information is from Patient report except when noted. This evaluation is NOT intended for forensic, disability or child custody purposes. Visit Type:The patient e-signed the Informed Consent for Psychological Evaluation AND Care Form, and the [facility] care insurance benefits, fees for service, emergency procedures, and the limits of confidentiality that may pertain with any given case were discussed with the patient. The patient was given a copy of the consent form on [employer]. The patient consented to a virtual visit and their location was confirmed. Informed consent was discussed and signed by the patient. PRESENT: Self AGE: [age] year old RACE: White MARITAL STATUS: Single (never ) CHILDREN: Yes, daughter age 16 months and son age 2 months. 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 albuterol HFA (PROVENTIL HFA, VENTOLIN HFA) 90 mcg/actuation inhaler Inhale 2 Puffs as instructed every 6 hours as needed for wheezing/shortness of breath. Administer using a spacer. (Patient not taking: Reported on 11/05/2021 ) No current facility-administered medications for this visit. ALLERGIES Allergen Reactions Celexa [Citalopram] Other: See Comments Tunnel vision Lexapro [Escitalopr* Rash REFERRAL SOURCE: [facility] Physician - Veronica Podlogar CHIEF COMPLAINT: I need to figure out my medications. HPI: I had PPD and anger with my daughter pretty bad. I didn't notice it 3 months pp with her. It seems like it has just continued during this . I have a lot of depression, anxiety and some anger. The rage I never had until I had children. Usually when I get angry or overwhelmed, I get dizzy and have to walk away. I take it out on my fiance by arguing. She states that she will channel her frustration about the kids into other things. Patient reports that she has been treated for depression, anxiety, PPD and bipolar 2 in the past. Patient denies SI, HI. Sleep: difficulty falling asleep, waking up a lot with her young children. She states that she has gone through periods where she sleeps too much. Interest: interest Guilt: a bit- when my daughter was little, I don't think I was caring for her the way I should. I would easily pass her off to others. Energy: low Concentration: fair Appetite: good Psychomotor activity: psychomotor activity was WNL. Suicide: None Phobias: no irrational fears Memory: Good Anxiety: high, ruminating thoughts, worst case scenario thinking. Patient reports that she has been having panic attacks since her son was born, reports that they are not everyday. Obsessions: relationship- yandel's family Compulsions: none Self mutilation: Denies PSYCHIATRIC HISTORY: Prior Diagnosis: Anxiety Disorder, Major Depressive Disorder, PPD, Bipolar 2 Prior Psychiatrist: During IOP in July 2023 Therapist: Yes, but cannot recall Current Telecommunications Repairer: None Last Hospitalization: None SUICIDE RISK ASSESSMENT: Suicide Attempt(s): Patient denies previous suicide attempts. Risk Factors: Family history of suicide- 2nd cousin completed suicide, History of mental disorder, and Feelings of hopelessness Protective Factors: Effective and accessible clinical care, Strong support system, Strong ties to medical/mental heatlh professionals, Skills in problem solving FAMILY PSYCHIATRIC HISTORY: Mother-Major Depressive Disorder Dad- MDD, anxiety PGM- depression, anxiety and bipolar MGM- MDD No family hx of substance abuse that she knows of. SUBSTANCE USE HISTORY: Nicotine: Patient reports that she vapes infrequently Caffeine: Coffee, not even 1x day cups/day, Otilia, 1/day Alcohol: No history of use or dependence Marijuana: No history of use or dependence Cocaine: No history of use or dependence Opiods: No history of use or dependence PFSH: Shawanda Brink is the oldest of 2 siblings. The patient was born and raised in [place], [place] . She completed High school. She described her childhood as loving and supportive. My early teenage years were rough when my parents were going through a divorce. Patient states that her parents and stepparents are very supportive and helpful to her. The patient lives [facility] and her two children. Service: None Legal: Pt. denied any past legal history Spirituality/Methodist: Episcopalian PATIENT DATA: Generalized Anxiety Disorder (more content not included)... [facility] 04-13-2024 History of Presen t illness Narrative GENERAL PSYCHOLOGY Patient was seen for an initial evaluation. All information is from Patient report except when noted. This evaluation is NOT intended for forensic, disability or child custody purposes. Visit Type:The patient e-signed the Informed Consent for Psychological Evaluation & Care Form, and the behavioral health care insurance benefits, fees for service, emergency procedures, and the limits of confidentiality that may pertain with any given case were discussed with the patient. The patient was given a copy of the consent form on Entelo. The patient consented to a virtual visit and their location was confirmed. Informed consent was discussed and signed by the patient. PRESENT: Self AGE: [age] year old RACE: White MARITAL STATUS: Single (never ) CHILDREN: Yes, daughter age 16 months and son age 2 months. 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 albuterol HFA (PROVENTIL HFA, VENTOLIN HFA) 90 mcg/actuation inhaler Inhale 2 Puffs as instructed every 6 hours as needed for wheezing/shortness of breath. Administer using a spacer. (Patient not taking: Reported on 11/05/2021 ) No current facility-administered medications for this visit. ALLERGIES Allergen Reactions Celexa [Citalopram] Other: See Comments Tunnel vision Lexapro [Escitalopr* Rash REFERRAL SOURCE: [facility] Physician - Veronica Podlogar CHIEF COMPLAINT: I need to figure out my medications. HPI: I had PPD and anger with my daughter pretty bad. I didn't notice it 3 months pp with her. It seems like it has just continued during this . I have a lot of depression, anxiety and some anger. The rage I never had until I had children. Usually when I get angry or overwhelmed, I get dizzy and have to walk away. I take it out on my fiance by arguing. She states that she will channel her frustration about the kids into other things. Patient reports that she has been treated for depression, anxiety, PPD and bipolar 2 in the past. Patient denies SI, HI. Sleep: difficulty falling asleep, waking up a lot with her young children. She states that she has gone through periods where she sleeps too much. Interest: interest Guilt: a bit- when my daughter was little, I don't think I was caring for her the way I should. I would easily pass her off to others. Energy: low Concentration: fair Appetite: good Psychomotor activity: psychomotor activity was WNL. Suicide: None Phobias: no irrational fears Memory: Good Anxiety: high, ruminating thoughts, worst case scenario thinking. Patient reports that she has been having panic attacks since her son was born, reports that they are not everyday. Obsessions: relationship- fijeanette's family Compulsions: none Self mutilation: Denies PSYCHIATRIC HISTORY: Prior Diagnosis: Anxiety Disorder, Major Depressive Disorder, PPD, Bipolar 2 Prior Psychiatrist: During IOP in July 2023 Therapist: Yes, but cannot recall Current Telecommunications Repairer: None Last Hospitalization: None SUICIDE RISK ASSESSMENT: Suicide Attempt(s): Patient denies previous suicide attempts. Risk Factors: Family history of suicide- 2nd cousin completed suicide, History of mental disorder, and Feelings of hopelessness Protective Factors: Effective and accessible clinical care, Strong support system, Strong ties to medical/mental heatlh professionals, Skills in problem solving FAMILY PSYCHIATRIC HISTORY: Mother-Major Depressive Disorder Dad- MDD, anxiety PGM- depression, anxiety and bipolar MGM- MDD No family hx of substance abuse that she knows of. SUBSTANCE USE HISTORY: Nicotine: Patient reports that she vapes infrequently Caffeine: Coffee, not even 1x day cups/day, Otilia, 1/day Alcohol: No history of use or dependence Marijuana: No history of use or dependence Cocaine: No history of use or dependence Opiods: No history of use or dependence PFSH: Shawanda Brink is the oldest of 2 siblings. The patient was born and raised in [place], [place] . She completed High school. She described her childhood as loving and supportive. My early teenage years were rough when my parents were going through a divorce. Patient states that her parents and stepparents are very supportive and helpful to her. The patient lives [facility] and her two children. Service: None Legal: Pt. denied any past legal history Spirituality/Methodist: Episcopalian PATIENT DATA: Generalized Anxiety Disorder Scale (MARK-7) 03/20/2024 04/13/2024 MARK - 7 SCORES Score 19 20 (0-4) minimal anxiety, (5-9) mild anxiety, (10-14) moderate anxiety, (15-21) severe anxiety Patient Health Questionnaire (PHQ-9) 03/20/2024 04/13/2024 PHQ-9 Score 15 21 (0-4) minimal depression, (5-9) mild depression, (10-14) moderate depression, (15-19) moderately severe depression, (20-27) severe depression Mental Status Exam: General/Sensorium: AO X 4 - Appearance: Appears well groomed and stated age and Casually dressed - Eye Contact: Appropriate eye contact - Demeanor: Appropriately interactive - Motor Activity: Normal - Speech: Appropriate - Mood: Reports feeling depressed and Anxious - Affect: Congruent with mood - Thought Process: Linear, logical, and goal-directed - Associations: Normal - Thought Content: Appropriate with no SI/HI/AVH, Talking about future goals or plans and Hopelessness themes - Perceptions: The patient does not appear internally stimulated - Cognition: Appears intact in regards to memory, attention/concentration, fund of knowledge and language skills - Insight: Good - Judgment: Good - SUMMARY IMPRESSION: Patient is a 18 year old SWF. 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 Patient has a 16 month old daughter and 2 month old son. Patient lives with her fiance. She reports that she has a lot of family support close by. Patient reports that she has been experiencing sx of depression including; anhedonia, low energy, irritability, poor sleep. She is also experiencing sx of anxiety including; increased worry, ruminating on things, difficulty falling asleep due to worry. Patient also endorses panic attacks, reports that she has had 2 since the of her two month old son. Patient is help seeking and is motivated to feel better. Patient denies SI, HI. DIAGNOSIS: PRIMARY: 1: Mood Disorder Major Depressive Disorder, Recurrent, Moderate and With Onset Other: Anxiety Disorder Generalized Anxiety Disorder PROVISIONAL: None GOALS/OBJECTIVES/INTERVENTIONS: 1. Contact information for [facility] was provided. Patient was advised to call and schedule with a psychiatry provider. 2. Should a mental health emergency arise, patient was instructed to contact 911 or go to the local ER. Contact information for [facility] was provided and patient was encouraged to call if further questions or concerns arise. 3. Patient is agreeable to short term therapy with this therapist. Her next appointment is scheduled for 02/21 at 1:00 pm TEJINDER Henderson I have communicated my name and active licensure. The patient's identity and physical location were verified at the time of this visit. Either the patient or their legal billing customer service representative has been informed of the risks and benefits of -- and alternatives to -- treatment through a remote evaluation and consents to proceed with the evaluation remotely. Visit performed via Virtual Visit Informed consent to deliver services discussed / virtual visit completed in [employer]zoom and lasted 22 minutes Patient aware of benefits of virtual visit services and is in agreement to participate Originating site for client [place] Originating site for provider [place] Site appropriate for privacy No equipment failures, provided psychotherapy documented in this encounter [facility] 03-21-2024 Telephone encounter Note Behavioral Health Social Work Progress Note Patient identified for [facility] from: PCP Reason for referral: [facility] Assessment [facility] encounter type: Telephone Encounter Attempts to Outreach: 1 attempt Patient Discharged?: No Patient reported that caregiver was able to meet their needs today?: N/A Phone call placed today that went to voicemail. Left my contact information and brief nature of call. Initial outreach also completed via MARGARETTE Shaver-S March 21, 2024 [facility] Work Phone: 03-21-2024 Miscellaneous Notes Behavioral Health Social Work Progress Note Patient identified for [facility] from: PCP Reason for referral: [facility] Assessment [facility] encounter type: Telephone Encounter Attempts to Outreach: 1 attempt Patient Discharged?: No Patient reported that caregiver was able to meet their needs today?: N/A Phone call placed today that went to voicemail. Left my contact information and brief nature of call. Initial outreach also completed via MALIK ShaverS March 21, 2024 documented in this encounter [facility] 03-21-2024 Veronica Pruitt APRN.MILL RECORDER - 03/21/2024 10:00 AM EDT - [facility] and after hours crisis line - Josewalanna's house phone number or documented in this encounter [facility] 03-21-2024 History of Presen t illness Narrative 03/21/2024 Patient presents with: Establish Care SUBJECTIVE: This is a 18 year old that is here today for Above Complaints. Delivered baby boy on 01/30/2024. Is currently . Does not follow any specific diet or exercise regime Reports hx of Bipolar, depression and anxiety. Was on Lutuda in the past but reports she can not take this while . Remembers being on Zoloft as well but that was prior to being diagnosed as Bipolar. Can not take Lexapro or Citalopram. Denies SI, HI or insomnia PHQ9: 15 MARK: 19 Having some frequent urination the last week. Denies fevers, chills, abdominal/back pain, nausea, vomiting, dysuria or hematuria Latest Ref Rng 03/21/2024 GLUCOSE UA (POCT) Negative mg/dL Negative BILIRUBIN UA (POCT) Negative Negative KETONE UA (POCT) Negative mg/dL Negative SPECIFIC GRAVITY UA (POCT) 1.005 - 1.030 >=1.030 HEMOGLOBIN/BLOOD UA (POCT) Negative Negative PH UA (POCT) 4.5 - 8.0 6.0 PROTEIN UA (POCT) Negative mg/dL Trace ! UROBILINOGEN UA (POCT) Normal E.U./dL 0.2 NITRITE UA (POCT) Negative Negative LEUKOCYTES UA (POCT) Negative Negative COLOR UA (POCT) Dark yellow CLARITY UA (POCT) Clear Past medical, surgical, family, social hx, medications, allergies and health maintenance reviewed and updated PAST MEDICAL HISTORY 08/18/2015: Acne vulgaris No date: Anxiety 09/27/2016: Cough variant asthma No date: PMH - PAST MEDICAL HISTORY OF Comment: vascular rose left ankle ALLERGIES Patient has no known allergies. MEDICATIONS Current Outpatient Medications Medication Sig Zinc Gluconate 100 mg tab Take by mouth. albuterol HFA (PROVENTIL HFA, VENTOLIN HFA) 90 mcg/actuation inhaler Inhale 2 Puffs as instructed every 6 hours as needed for wheezing/shortness of breath. Administer using a spacer. (Patient not taking: Reported on 11/05/2021 ) No current facility-administered medications for this visit. Medications and allergies reviewed by this provider. SOCIAL HISTORY Social History Tobacco Use Smoking status: Never Smokeless tobacco: Never Substance Use Topics Alcohol use: Never Drug use: Never REVIEW OF SYSTEMS GENERAL: No weight loss, malaise or fevers HEENT: No changes in hearing or vision, no nose bleeds or other nasal problems NECK: Negative for lumps, goiter, pain and significant neck swelling RESPIRATORY: Negative for cough, hemoptysis, wheezing, COPD, dyspnea or shortness of breath CARDIOVASCULAR: Negative for chest pain, leg swelling, hypertension, CHF or palpitations GI: No nausea, vomiting, or diarrhea : No history of dysuria,or incontinence CORPORATE PILOT: Negative for abnormal vaginal bleeding, abnormal vaginal discharge MUSCULOSKELETAL: Negative for joint pain or swelling, back pain or muscle pain SKIN: Negative for lesions, rash, and itching PSYCH: See HPI HEMATOLOGY/LYMPHOLOGY: Negative for prolonged bleeding, bruising easily or swollen nodes ENDOCRINE: Negative for cold or heat intolerance, polyuria, polydipsia and goiter NEURO: No history of syncope, paralysis, seizures or tremors All other reviewed and negative other than HPI. OBJECTIVE: BP 122/82 Pulse 89 Resp 18 Ht 164.7 cm (5' 4.84) Wt 89.4 kg (197 lb) LMP 11/04/2021 SpO2 98% BMI 32.94 kg/m . Vital signs reviewed by this provider. APPEARANCE Well appearing, alert, in no acute distress, well-hydrated, well nourished. EYES conjunctiva and sclera normal. EARS External ears normal, canals clear NECK Supple, no adenopathy; thyroid symmetric, normal size, no bruits HEART RRR with normal S1 and S2, no murmurs, no gallops, no JVD appreciated LUNG clear to auscultation. No wheezes, rhonchi or rales ABDOMEN no tenderness to palpation EXTREMITIES Extremities normal, No deformities, No skin discoloration, and No edema SKIN Skin color, texture, turgor normal, no suspicious rashes or lesions to exposed skin PSYCH: Posture and motor behavior: normal posture and motor behavior Dress, grooming, personal hygiene: normal dress and grooming Facial expression: good eye contact Speech: normal speech Mood: cheerful Coherency and relevance of thought: normal thought processes Memory: normal memory Meningococcal B Vaccine: Consider Based On Risk(1 of 2 - Patient Seeks Protection) Never done Spirometry Never done Hepatitis C Screening Never done HIV Screening Never done Asthma Control Test due on 08/27/2022 GC (Gonorrhea) Screening (18-24) due on 11/16/2022 Chlamydia Screening (18-24) due on 11/16/2022 Asthma Action Plan due on 08/27/2023 Covid-19 Vaccine( - season) Never done Influenza Vaccine(1) due on 03/18/2024 Annual PCP Team Chronic Disease Visit due on 03/21/2025 DTaP,Tdap,Td Vaccine(8 - Td or Tdap) due on 11/03/2032 Hepatitis B Vaccine Completed HPV Vaccine Completed RSV Vaccine(No Doses Required) Completed ASSESSMENT/PLAN: 1. Encounter for medical examination to establish care - ICD9: V70.9, ICD10: Z00.00 (primary diagnosis) - Counseled on healthy diet and regular exercise - Discussed need and benefit for weight loss. BMI 32.94 kg/(m^2) - Follow up for annual exam in one year - COMPLETE BLOOD COUNT AND DIFFERENTIAL - COMPREHENSIVE METABOLIC PANEL 2. Bipolar II disorder (HCC) - ICD9: 296.89, ICD10: F31.81 - will have her see psychiatry for further assessment and medication recommendation - CONSULT TO [facility] 3. Urinary frequency - ICD9: 788.41, ICD10: R35.0 - negative urine POC - no red flag symptoms or exam findings - red flag symptoms discussed, verbalizes understanding - UA DIP, URINE (POC) - follow-up if symptoms persist 4. Anxiety and depression - ICD9: 300.00, 311, ICD10: F41.9, F32.A - plan as in #2 - THYROID STIMULATING HORMONE Veornica Muse, CERTIFIED DIETARY MANAGER.MILL RECORDER Prescription instructions reviewed with patient as applicable. Patient advised if symptoms do not improve or if symptoms worsen sooner, to contact their primary care physician. Potential red flag symptoms discussed with the patient. Reviewed appropriate action plan to take if red flag symptoms occur. Patient agreeable to treatment plan. Medical Decision Making: Problems: Moderate: 1+ chronic illnesses with change Data: Unique test(s) ordered: 3+ Risk: Moderate: Moderate risk from testing/treatment Medical Decision Making Level: 4 - Moderate documented in this encounter [facility] 01-27-2024 History of Presen t illness Narrative This note was created using NoteWriter. Subjective Shawanda Brink is a 18 year old female. Presents for 1 week sore throat and drainage. Patient reports Objective BP 152/72 Pulse 113 Temp 36.6 C (97.9 F) Resp 18 Wt 104 kg (229 lb 4.5 oz) SpO2 98% Physical Exam PHYSICAL EXAMINATION: General appearance: Well appearing, alert, in no acute distress, well-hydrated, well nourished. Nose/Sinuses: Nares normal, septum midline, mucosa normal, no drainage or sinus tenderness Oropharynx: Positive findings: mild oropharyngeal erythema Neck: Positive findings: posterior cervical adenopathy Assessment and Plan ASSESSMENT/PLAN: 1. Sore throat - ICD9: 462, ICD10: J02.9 - suspect viral - Rapid Strep negative in the office today - Discussed supportive care treatment with fluids, rest and analgesia. - The patient should follow up in 3-5 days if symptoms persist or worsen - STREP A MOLECULAR (POC) Marychuy Calvin APRN.MILL RECORDER documented in this encounter [facility] 01-21-2024 History of Presen t illness Narrative Patient presents with: Conjunctivitis: Bilateral x1 day HPI: Feeling eye irritation since yesterday (R>L). Positive symptoms: eye irritation/redness/discharge, Negative symptoms: Cough, Nasal Congestion, Rhinorrhea, Fever, vision change, contact lens use, OTC: cold and warm compress Denies contact lens use. MEDICATIONS: Current Outpatient Medications Medication Sig ferrous sulfate 325 mg (65 mg iron) tablet Take by mouth. Zinc Gluconate 100 mg tab Take by mouth. albuterol HFA (PROVENTIL HFA, VENTOLIN HFA) 90 mcg/actuation inhaler Inhale 2 Puffs as instructed every 6 hours as needed for wheezing/shortness of breath. Administer using a spacer. (Patient not taking: Reported on 11/05/2021 ) No current facility-administered medications for this visit. ALLERGIES: ALLERGIES No Known Allergies VITALS: BP 139/92 Pulse 79 Temp 37.1 C (98.7 F) Resp 18 Wt 103.9 kg (229 lb 0.9 oz) LMP 11/04/2021 SpO2 97% PHYSICAL EXAM: GEN: Pleasant, in no acute distress. HEENT: PERRL, EOMI, Mild right eyelid edema, erythema, and crust. Pinpoint pustule at the lash line midline of the upper eyelid. Moderate right conjunctival injection with possible early subconjunctival hemorrhage laterally. Mild left conjunctival injection Nose: sniffing rhinorrhea Throat: moist mucous membranes, no erythema, no exudate Neck: supple, no thyromegaly, no lymphadenopathy HEART: regular rate and rhythm, no murmurs LUNGS: clear to auscultation, no wheezes or crackles, no increased WOB ABD: gravid. ASSESSMENT/PLAN: 1. Acute conjunctivitis of both eyes, unspecified acute conjunctivitis type - ICD9: 372.00, ICD10: H10.33 (primary diagnosis) 2. Hordeolum externum right upper eyelid - ICD9: 373.11, ICD10: H00.011 - POLYMYXIN B SULFATE 10,000 UNIT-TRIMETHOPRIM 1 MG/ML EYE DROPS Continue warm and cold compress. Seek re-evaluation for high fever, increasing periocular redness/swelling, eye pain, or vision change as these can be symptoms of serious infection. Bharat Mosher MD documented in this encounter [facility] 05-25-2023 History of Presen t illness Narrative This note was created using Tvinc[employer]iter. Subjective Shawanda Brink is a 17 year old female. HPI Patient presents with the chief complaint of sinus pressure and congestion for 2 weeks. She has also had a cough. She denies a fever. No vomiting or diarrhea. Her daughter had been sick with bronchiolitis recently. She is not currently breast-feeding but does think she is . Last menstrual cycle was October 7 and she took 2 home test which [...] FACTOR 5 DISORDER Paternal great aunt other ([place]) Maternal Grandfather 49 Social History Tobacco Use [...] Becca Stearns PA-C documented in this encounter [facility] 12-15-2022 Procedure note [facility] 12-14-2022 Progress note Note Date/Time December 14, 2022 9:27p [facility] Medical Records Department [address] [place] [address] Progress Note 12/14/222121 MR#: [id number] Acct: [id number] Name: SHAWANDA BRINK Rep #:[id number] : 2005 17 From: Lu Mcclain CNM PCP: Care Physician,No Primary Status :ADM IN Location: [id number] Progress Note comfortable with contractions current tracing: FHT: 125 Moderate variability reactive no decelerations category I tracing Bug Tussle: Contractions every 2-3 minutes. reviewed tracing abnormalities since last note: internal monitors placed by Dr Ochoa at time of AROM at 1509 for clear fluid A/P: continue position changes titrate pitocin per policy continue to monitor blood sugars per policy currently controlled PCN q 4 hours until delivery collaborative POC with Dr Ochoa for uncontrolled GDM and expected LGA fetus. Assessment & Plan Assessment/Plan (1) Encounter for induction of labor: (2) Gestational diabetes: (3) GBS (group B Streptococcus carrier), +RV culture, currently : (4) : QUALIFIERS: Weeks of gestation: 38 weeks Qualified Code(s): Z3A.38 - 38 weeks gestation of (5) Supervision of high risk , antepartum: (6) Depression: (7) Asthma: Multi Select Codes Urinary/Genital Urinary/Genital CPT Codes: No Charge 12/14/222126 <Electronically signed by Lu Mcclain CNM> Lu Mcclain CNM Cosigner Signature (if applicable): CC: ~ Signed [facility] Work Phone: 1(738) 961-269405-30-[address] Ochoa [facility] December 14, 2022 3:23pm Note Date/Time December 14, 2022 3:22p m [facility] Medical Records Department [address] [place] [address] Progress Note 12/14/22 1522 MR#: [id number] Acct: [id number] Name: SHAWANDA BRINK Rep #:[id number] : 2005 17 From: Deborah pierre MD PCP: Care Physician,No Primary Status :ADM IN [facility] Note arom clear fluid reassuring FHT cat I internals placed pit per protocol 12/14/221522 <Electronically signed by Deborah Ochoa MD> Deborah Ochoa MD Cosigner Signature (if applicable): CC: ~ Signed [facility] Work Phone: 1(966) 675-597605-30-2023 Progress note Author Lu Mcclain [facility] December 14, 2022 11:37am Note Date/Time December 14, 2022 11:37 am [facility] Medical Records Department [address] [place] [address] Progress Note 12/14/22 1134 MR#: [id number] Acct: [id number] Name: SHAWANDA BRINK Rep #:[id number] : 2005 17 From: Lu Mcclain CNM PCP: Care Physician,No Primary Status :ADM IN [id number] Progress Note coping well with contractions current tracing: FHT: Moderate variability reactive no decelerations category I tracing Bug Tussle: 2-4 minute moderate Contractions SVE 3/60/-1 A/P: Plan for pitocin at appropriate time interval start PCN for GBS prophylaxis treatment continue position changes Assessment & Plan Assessment/Plan (1) Encounter for induction of labor: (2) Gestational diabetes: (3) GBS (group B Streptococcus carrier), +RV culture, currently : (4) : QUALIFIERS: Weeks of gestation: 38 weeks Qualified Code(s): Z3A.38 - 38 weeks gestation of (5) Supervision of high risk , antepartum: Multi Select Codes Urinary/Genital Urinary/Genital CPT Codes: No Charge 12/14/22 1137 <Electronically signed by Lu Mcclain CNM> Lu Mcclain CNM Cosigner Signature (if applicable): CC: ~ Signed [facility] Work Phone: [phone]) 315-278205-30-2023 History and physical note Author Lu Mcclain [facility] December 14, 2022 8:20am Note Date/Time December 14, 2022 8:18a m [facility] Medical Records Department [address] [place] [address] H&P Exam - ROUTE SERVICE MANAGER 12/14/22 0813 MR#: [id number] Acct: [id number] Name: SHAWANDA BRINK Rep #:[id number] : 2005 17 From: Lu Mcclain CNM PCP: Care Physician,No Primary Status :ADM IN Location: [place] [address]-1 HPI - General General Date of Admission: 12/13/22 Date of Service: 12/13/22 HPI Narrative SHAWANDA BRINK, is a 17 F who presents for IOL at 38.3 weeks for uncontrolled GDM. Maternal Data Information DILLON Calculator Estimated Delivery Date Method Current WG Current Estimate 12/24/22 Ultrasound #1 38w 4d Other Estimates 12/08/22 LMP (Uncertain) 40w 6d Final DILLON: 12/24/22 Final DILLON Source: US >20 weeks Gestational age: 38.3 weeks PFSH PFSH Medical History Anxiety Asthma Depression GBS (group B Streptococcus carrier), +RV culture, currently macrosomia Palpitations Supervision of high risk , antepartum Home Medications albuterol sulfate 90 mcg/actuation aerosol inhaler (Ventolin HFA) 1 - 2 puff inhalation Q6H PRN PRN Asthma 11/02/17 [History Last Taken Unknown] multivitamin no.47-iron fum 27 mg-folate no.1 1 mg-dha 300 mg capsule (PNV-DHA)1 cap PO DAILY 05/11/22 [History Last Taken Unknown] ondansetron 4 mg disintegrating tablet 4 mg PO Q8H PRN nausea and vomiting #10 tabs 10/19/22 [Rx Last Taken Unknown] blood sugar diagnostic (True Metrix Glucose Test Strip) #100 ea 11/03/22 [Rx Last Taken Unknown] blood-glucose meter (True Metrix Air Glucose Meter) #1 ea 11/03/22 [Rx Last Taken Unknown] lancets #100 ea 11/03/22 [Rx Last Taken Unknown] BD Ultra-Fine Domonique Pen Needle 32 gauge x 5/32 (pen needle, diabetic) #50 ea 11/16/22 [Rx Last Taken Unknown] OneTouch Verio test strips (blood sugar diagnostic) #150 ea 11/16/22 [Rx Last Taken Unknown] Tresiba FlexTouch U-200 200 unit/mL (3 mL) subcutaneous pen (insulin degludec) 40 unit (0.2 mL) subcut DAILY #9 mL 11/16/22 [Rx Last Taken Unknown] lancets 33 gauge (OneTouch Delica Plus Lancet) #150 ea 11/16/22 [Rx Last Taken Unknown] Allergy/AdvReac Type Severity Reaction Status Date / Time No Known Allergies Allergy Verified 12/10/22 15:09 Family History Grandmother Cervical cancer, Onset Age: 40 maternal Grandfather Myocardial infarction Social History adopted: No household members: significant other housing: house current occupational status: employed 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- [employer] current occupational exposures/hazards: No pets and animals: Yes (not managing litterbox while ) pets and animals:cat(s) history of recent travel: Yes ([place]) out of state: Yes out of country: No sexually active: Yes Smoking Status: Former smoker alcohol intake: never substance use type: does not use well-balanced diet: daily or most days caffeine: Yes (ocassional) Type: carbonated beverages Number of servings: 1 eating out: 1-3 times/week during the past year weight has: remained stable what type of physical activity do you participate in: walking frequency: 3-4 times per week duration: 30-45 minutes/day jenni/rastafari: Episcopalian seatbelt use: always do you feel safe at home: Yes additional social history: BF- Charlie Valderrama Jr.- [employer] History 1 Elective abortions Hx Para 0 Spontaneous abortions Hx # Term Pregnancies Ectopic pregnancies Hx # Pregnancies Multiple births # of living children Visit Details Expected Delivery Route/Plan Labor Preferences- CB/BF classes: encouraged labor support person: Charlie labor intervention preferences: yes pain management options preferred: cut cord/dad catch: yes : yes PP control planned: discussed discussed possible routes of delivery and associated risks: [] special requests: [] Plans Covid status:unvaccinated Flu vaccine: plans to vaccinate. works at [employer] Tdap vaccine: [] Rhogam: na LARC form signed: yes Problem list reviewed and updated with the most current plan of care details and appropriate orders placed. Relevant counseling for the gestational age provided. Continue routine care and follow up unless otherwise noted in visit notes/problem list details OB Flowsheet Initial Weight: Not Recorded Date -?-?-?-?-?-?-?-?-?-?-?-?- EGA Weight BP Urine Prot -?-?-?-?-?-?-?-?-?-?-?-?- Glucose FHR FuHt Pres Dilation -?-?-?-?-?-?-?-?-?-?-?-?- Effaced St Visit Note 05/13/22 -?-?-?-?-?-?-?-?-?-?-?-?- 7w 6d 185 lb 6 oz 108/67 -?-?-?-?-?-?-?-?-?-?-?-?- 189 -?-?-?-?-?-?-?-?-?-?-?-?- JV- CRL NOT cons istent with LMP. new Dillon given. see A/P 06/14/22 -?-?-?-?-?-?-?-?-?-?-?-?- 12w 3d 181 lb 121/77 -?-?-?-?-?-?-?-?-?-?-?-?- 160 -?-?-?-?-?-?-?-?-?-?-?-?- SM- no vb crampi ng still having nausea, ordered compazine. NOB labs today 07/20/22 -?-?-?-?-?-?-?-?-?-?-?-?- 17w 4d 185 lb 4 oz 124/82 Nega tive -?-?-?-?-?-?-?-?-?-?-?-?- Negative 154 -?-?-?-?-?-?-?-?-?-?-?-?- -had VB 07/13 and went to ED for US and WNL. No bleeding since. Ordered anatomy US with [employer]. Light duty until then. 08/17/22 -?-?-?-?-?-?-?-?-?-?-?-?- 21w 4d 196 lb 6 oz 124/80 Nega tive -?-?-?-?-?-?-?-?-?-?-?-?- Negative 156 -?-?-?-?-?-?-?-?-?-?-?-?- -No Vb, TRAY. Ab [facility]. Nl anatomy scan. 09/22/22 -?-?-?-?-?-?-?-?-?-?-?-?- 26w 5d 212 lb 8 oz 118/72 Nega tive -?-?-?-?-?-?-?-?-?-?-?-?- Negative 161 -?-?-?-?-?-?-?-?-?-?-?-?- -No Vb, LOF. Ab wright FM. Plans 28 wk labs tomorrow. Random episode of palpitations:order EKG and ref heart group. More anxiety, restarted umu. Gave counseling info. 10/04/22 -?-?-?-?-?-?-?-?-?-?-?-?- 28w 3d 220 lb 114/74 Negative -?-?-?-?-?-?-?-?-?-?-?-?- Negative 150 28 -?-?-?-?-?-?-?-?-?-?-?--?- SM- no vb lof go od fm no regular ctx SM- no vb lof good fm no reg ular ctx discussed tdap 10/19/22 -?-?-?-?-?-?-?-?-?-?-?-?- 30w 4d 225 lb 2 oz 112/72 Nega tive -?-?-?-?-?-?-?-?-?-?-?-?- Negative 153 31 -?-?-?-?-?-?-?-?-?-?-?-?- MH-No Vb, LOF. G ood FM. Vomited glucose last week but will try again. Martha given for use prior. 11/03/22 -?-?-?-?-?-?-?-?-?-?-?-?- 32w 5d 228 lb 6 oz 126/89 Nega tive -?-?-?-?-?-?-?-?-?-?-?-?- Negative 155 34 -?-?-?-?-?-?-?-?-?-?-?-?- JV- has not star charlie collecting glucose levels yet. tdap today. goals discussed. measuring large already, will plan for 36 or 37 week ultrasound for growth. 11/11/22 -?-?-?-?-?-?-?-?-?-?-?-?- 33w 6d 232 lb 121/82 Negative -?-?-?-?-?-?-?-?-?-?-?-?- Negative 150 -?-?-?-?-?-?-?-?-?-?-?-?- JV- glucose leve ls all elevated. sending to endo for insulin. if they cant get her in I will start. nst reactive. pt ad complex migraine yesterday. went to L&D for work up 11/16/22 -?-?-?-?-?-?-?-?-?-?-?-?- 34w 4d 229 lb 6 oz 149/88 101/69 Negative -?-?-?-?-?-?-?-?-?-?-?-?- Negative 145 -?-?-?-?-?-?-?-?-?-?-?-?- KW-NST only. thor ctive. has appt with Dr Soler today. reports BS still elevated at 2 hour PP 11/19/22 -?-?-?-?-?-?-?-?-?-?-?-?- 35w 0d 230 lb 8 oz 117/80 -?-?-?-?-?-?-?-?-?-?-?-?- 140 -?-?-?-?-?-?-?-?-?-?-?-?- SM- nst no vb lo f good fm no reguar ctx 11/23/22 -?-?-?-?-?-?-?-?-?-?-?-?- 35w 4d 232 lb 2 oz 120/78 120/78 Negative -?-?-?-?-?-?-?-?-?-?-?-?- Negative 135 37 -?-?-?-?-?-?-?-?-?-?-?-?- KW-NST. no vb/lo f/ctx +fm. GBS next visit. Insulin dose was increased to 20units by dr soler per pt. Has growth US on tuesday11/29/22 -?-?-?-?-?-?-?-?-?-?-?-?- 36w 3d 232 lb 4 oz 120/79 Nega tive -?-?-?-?-?-?-?-?-?-?-?-?- Negative 140 -?-?-?-?-?-?-?-?-?-?-?-?- SM-nst, gbs done 12/02/22 -?-?-?-?-?-?-?-?-?-?-?-?- 36w 6d 230 lb 120/74 -?-?-?-?-?-?-?-?-?-?-?-?- 140 37 -?-?-?-?-?-?-?-?-?-?-?-?- JV- nst reactive . glucose levels well controlled 12/07/22 -?-?-?-?-?-?-?-?-?-?-?-?- 37w 4d 233 lb 109/72 109/72 109/72 Negative -?-?-?-?-?-?-?-?-?-?-?-?- Negative 135 40 Cephalic 0 .5 -?-?-?-?-?-?-?-?-?-?-?-?- 50 -2 KW- +Fm. n o lof/vb/regular ctx. Last growth US-3329 at 36.0 weeks. est weight at 39 weeks -4,009 to 4250 grams. Discussed with SM. Plan for IOL at 38 weeks for EFW of 0624-1867 grams. IOL scheduled KW- +Fm. no lof/vb/regular c tx. Last growth US-3329 at 36.0 weeks. est weight at 39 weeks -4,009 to 4250 grams. Discussed with SM. Plan for IOL at 38 weeks for EFW of 3027-5550 grams and uncontrolled GDM. IOL scheduled. reports good glucose control since last insulin increase. 12/10/22 -?-?-?-?-?-?-?-?-?-?-?-?- 38w 0d 232 lb 4 oz 122/81 Nega tive -?-?-?-?-?-?-?-?-?-?-?-?- Negative 140 -?-?-?-?-?-?-?-?-?-?-?-?- LC-reactive NST. glucose better controlled on triseba. 12/13/22 -?-?-?-?-?-?-?-?-?-?-?-?- 38w 3d 233 lb 7.512 oz 140/ 86 143/95 111/55 125/79 123/75 119/64 -?-?-?-?-?-?-?-?-?-?-?-?- -?-?-?-?-?-?-?-?-?-?-?-?- NST FHR Rate Baby A Baseline: 120 Variability:: Moderate Accelerations:: 15 x 15 Decelerations:: None NST Reactive:: Yes FHR Category:: Category I Uterine Activity:: irregular ROS Constitutional Constitutional: Denies change in weight, fatigue, fever(s), headache(s), poor appetite or weakness Eyes Eyes: Denies blurry vision, change in vision, floaters, seeing flashes or spots in vision ENT HEENT: Denies dizziness, headache(s), loss taste/smell or sore throat Cardiovascular Cardiovascular: Denies chest pain, dizziness, dyspnea, irregular heart rhythm, lightheadedness, palpitations or rapid heart rate Respiratory/Chest Respiratory/Chest: Denies change in mental status, chest tightness, cough, dyspnea or breast pain Gastrointestinal Gastrointestinal: Denies anorexia, chewing difficulty, constipation, diarrhea or weight changes Genitourinary Genitourinary: Denies difficulty urinating, dysuria, flank pain, genital pain, urinary frequency or urinary urgency Musculoskeletal Musculoskeletal: Denies back pain, difficulty walking, extremity pain, joint pain, muscle cramps or muscle weakness Integumentary Integumentary: Denies lesions or unusual bruising Neurologic Neurologic: Denies abnormal movements, abnormal speech, dizziness, numbness, seizure-like activity, syncope or weakness Psychiatric Psychiatric: Denies behavioral changes, change in appetite, confusion, depression, homicidal ideation, suicidal ideation or suicidal thoughts Endocrine Endocrinology: Denies excessive sweating, polydipsia or polyuria Hematologic/Lymphatic Hematologic/Lymphatic: Denies anemia Allergic/Immunologic Allergic/Immunologic: Denies itchy eyes, lip swelling, throat swelling, tongue swelling or wheezing Vital Signs Vital Signs Vital Signs: 12/13/22 19:41 12/13/22 19:42 12/13/22 19:42 Temperature Pulse Rate 96 Blood Pressure 140/86 H BP Systolic 140 BP Diastolic 86 Pulse Ox 98 12/13/22 19:41 12/13/22 22:35 12/13/22 22:35 Temperature 97.9 F Pulse Rate 92 Blood Pressure 143/95 H BP Systolic 143 BP Diastolic 95 Pulse Ox 12/13/22 22:36 12/13/22 23:31 12/13/22 23:31 Temperature 97.2 F L Pulse Rate 77 Blood Pressure 111/55 L BP Systolic 111 BP Diastolic 55 Pulse Ox 12/14/22 01:32 12/14/22 01:32 12/14/22 01:33 Temperature 97.7 F L Pulse Rate 77 Blood Pressure 125/79 H BP Systolic 125 BP Diastolic 79 Pulse Ox 12/14/22 05:44 12/14/22 05:44 12/14/22 05:44 Temperature Pulse Rate 86 Blood Pressure 123/75 H BP Systolic 123 BP Diastolic 75 Pulse Ox 98 12/14/22 05:43 12/14/22 07:56 12/14/22 07:56 Temperature 97.5 F L 97.3 F L Pulse Rate Blood Pressure 119/64 BP Systolic 119 BP Diastolic 64 Pulse Ox 12/14/22 07:56 Temperature Pulse Rate 86 Blood Pressure BP Systolic BP Diastolic Pulse Ox Weight Weight: 233 lb 7.512 oz Physical Exam Const alert, oriented x3 and no apparent distress General Appearance: cooperative Orientation / Consciousness: awake HEENT normocephalic Neck full ROM Lymph Lymphatic: no lymphadenopathy noted Chest inspection of chest normal Resp normal respiratory effort and normal air movement Effort and Inspection: able to speak in complete sentences and symmetric chest movement GI soft to palpation and non-tender Inspection: gravid Palpation: soft; Negative for tender external exam normal Back/Spine normal to inspection Extremity normal to inspection and full ROM Skin no rashes or lesions noted Psych mental status grossly normal Appearance: grossly normal Speech: normal speech Labs Labs Labs: Blood Type O POSITIVE Antibody Screen NEGATIVE Hct 37.0 % (37-47) Hgb 12.0 g/dL (12.0-15.0) Obstetrics US Syphilis Total Ab Non-reactive Rubella IgG Antibody Reactive (Nonreactive) Hep Bs Antigen Non-Reactive (Nonreactive) Chlamydia DNA (REYNALDO) Negative (Negative) Neisseria gonorrhoeae DNA ([facility]O) Negative (Negative) HIV 1&2 Antibody Non-Reactive (Nonreactive) Glucose 1 Hr 50 gm 201 mg/dL (70-140) H Assessment & Plan (1) Encounter for induction of labor: COMMENT: medical IOL for uncontrolled GDM cytotec until favorable plan pitocin/johns bulb in AM (2) Gestational diabetes: COMMENT: on Tresiba per Dr. 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 to see endo start twice weekly nsts. (3) GBS (group B Streptococcus carrier), +RV culture, currently : COMMENT: treat with PCN in labor (4) : QUALIFIERS: Weeks of gestation: 38 weeks Qualified Code(s): Z3A.38 - 38 weeks gestation of COMMENT: declined genetic, carrier, ntd testing. nl anatomy. growth 92% nl fluid (5) Supervision of high risk , antepartum: COMMENT: PRR , DILLON 12/24/22 BF Charlie Valderrama Jr. Charges/Coding Multi Select Codes Urinary/Genital Urinary/Genital CPT Codes: No Charge 12/14/22 0820 <Electronically signed by Lu Mcclain CNM> Cosigner Signature (if applicable): CC: TIFFANIE Mcclain; No Primary Care Physician~ Signed [facility] Work Phone: 1(744) 712-101205-30-2023 Progress note Author Lu Mcclain [facility] December 14, 2022 8:12am Note Date/Time December 14, 2022 8:12a m [facility] Medical Records Department [address] [place] [id number] Progress Note 12/14/22 0804 MR#: [id number] Acct: [id number] Name: SHAWANDA BRINK Rep #:[id number] : 2005 17 From: Lu Mcclain CNM PCP: Care Physician,No Primary Status :ADM [facility] Note coping well with irregular contractions current tracing: FHT: 120 Moderate variability reactive no decelerations category I tracing Bug Tussle: irregular Contractions last cytotec dose 0545 SVE 1.5/50/-2 at 0545 A/P: continue position changes plan for johns bulb and pitocin after cervical ripening PCN for GBS treatment when pitocin is started continue to monitor blood sugars-insulin if needed collaborative care with Dr. Ochoa for high risk Physical Exam Const alert and oriented x3 General Appearance: cooperative and comfortable Orientation / Consciousness: awake Neck full ROM Resp normal respiratory effort, normal air movement and no retractions Effort and Inspection: able to speak in complete sentences and symmetric chest movement GI GI Narrative: gravid Palpation: soft Manual OB Exam: estimated gestational size large Psych Appearance: grossly normal Attitude: calm Thought Process: normal thought process Thought Content: normal thought content Assessment & Plan Assessment/Plan (1) Encounter for induction of labor: (2) Gestational diabetes: (3) GBS (group B Streptococcus carrier), +RV culture, currently : (4) : QUALIFIERS: Weeks of gestation: 38 weeks Qualified Code(s): Z3A.38 - 38 weeks gestation of (5) Supervision of high risk , antepartum: Multi Select Codes Urinary/Genital Urinary/Genital CPT Codes: No Charge 12/14/22 0812 <Electronically signed by Lu Mcclain CNM> Lu Mcclain CNM Cosigner Signature (if applicable): CC: ~ Signed [facility] Work Phone: 1(161) 799-126505-30-2023 History and physical note Author Kate Guy [facility] December 14, 2022 12:36am Note Date/Time December 14, 2022 12:23 am [facility] Medical Records Department [address] [place] [address] H&P 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 active fetus, denies painful contractions, mild tightening. no lof/vb. glucose per pt more controlled on triceba, dose taken this morning.? 11/26/2022 EFW: 3329 grams, +/- 499 grams, 92. percentile. EFW today: 3869g Maternal Data Information DILLON Calculator Estimated Delivery Date Method Current WG Current Estimate 12/24/22 Ultrasound #1 38w 4d Other Estimates 12/08/22 LMP (Uncertain) 40w 6d PFSH PFSH Medical History (Updated 12/14/22 @ 00:34 by Kate Guy CNM) Anxiety Asthma Depression GBS (group B Streptococcus carrier), +RV culture, currently macrosomia Palpitations Supervision of high risk , antepartum Home Medications albuterol sulfate 90 mcg/actuation aerosol inhaler (Ventolin HFA) 1 - 2 puff inhalation Q6H PRN PRN Asthma 11/02/17 [History Last Taken Unknown] multivitamin no.47-iron fum 27 mg-folate no.1 1 mg-dha 300 mg capsule (PNV-DHA)1 cap PO DAILY 05/11/22 [History Last Taken Unknown] ondansetron 4 mg disintegrating tablet 4 mg PO Q8H PRN nausea and vomiting #10 tabs 10/19/22 [Rx Last Taken Unknown] blood sugar diagnostic (True Metrix Glucose Test Strip) #100 ea 11/03/22 [Rx Last Taken Unknown] blood-glucose meter (True Metrix Air Glucose Meter) #1 ea 11/03/22 [Rx Last Taken Unknown] lancets #100 ea 11/03/22 [Rx Last Taken Unknown] BD Ultra-Fine Domonique Pen Needle 32 gauge x 5/32 (pen needle, diabetic) #50 ea 11/16/22 [Rx Last Taken Unknown] OneTouch Verio test strips (blood sugar diagnostic) #150 ea 11/16/22 [Rx Last Taken Unknown] Tresiba FlexTouch U-200 200 unit/mL (3 mL) subcutaneous pen (insulin degludec) 40 unit (0.2 mL) subcut DAILY #9 mL 11/16/22 [Rx Last Taken Unknown] lancets 33 gauge (OneTouch Delica Plus Lancet) #150 ea 11/16/22 [Rx Last Taken Unknown] Allergy/AdvReac Type Severity Reaction Status Date / Time No Known Allergies Allergy Verified 12/10/22 15:09 Family History Grandmother Cervical cancer, Onset Age: 40 maternal Grandfather Myocardial infarction Social History adopted: No household members: significant other housing: house current occupational status: employed 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 current occupational exposures/hazards: No pets and animals: Yes (not managing litterbox while ) pets and animals:cat(s) history of recent travel: Yes ([place]) out of state: Yes out of country: No sexually active: Yes Smoking Status: Former smoker alcohol intake: never substance use type: does not use well-balanced diet: daily or most days caffeine: Yes (ocassional) Type: carbonated beverages Number of servings: 1 eating out: 1-3 times/week during the past year weight has: remained stable what type of physical activity do you participate in: walking frequency: 3-4 times per week duration: 30-45 minutes/day jenni/rastafari: Episc[employer]alian seatbelt use: always do you feel safe at home: Yes additional social history: BF- Charlie Valderrama Jr.- [employer] History 1 Elective abortions Hx Para 0 Spontaneous abortions Hx # Term Pregnancies Ectopic pregnancies Hx # Pregnancies Multiple births # of living children Visit Details Expected Delivery Route/Plan Labor Preferences- CB/BF classes: encouraged labor support person: Charlie labor intervention preferences: yes pain management options preferred: cut cord/dad catch: yes : yes PP control planned: discussed discussed possible routes of delivery and associated risks: [] special requests: [] Plans Covid status:unvaccinated Flu vaccine: plans to vaccinate. works at [employer] Tdap vaccine: [] Rhogam: na LARC form signed: yes Problem list reviewed and updated with the most current plan of care details and appropriate orders placed. Relevant counseling for the gestational age provided. Continue routine care and follow up unless otherwise noted in visit notes/problem list details OB Flowsheet Initial Weight: Not Recorded Date -?-?-?-?-?-?-?-?-?-?-?-?- EGA Weight BP Urine Prot -?-?-?-?-?-?-?-?-?-?-?-?- Glucose FHR FuHt Pres Dilation -?-?-?-?-?-?-?-?-?-?-?-?- Effaced St Visit Note 05/13/22 -?-?-?-?-?-?-?-?-?-?-?-?- 7w 6d 185 lb 6 oz 108/67 -?-?-?-?-?-?-?-?-?-?-?-?- 189 -?-?-?-?-?-?-?-?-?-?-?-?- JV- CRL NOT cons istent with LMP. new Dillon given. see A/P 06/14/22 -?-?-?-?-?-?-?-?-?-?-?-?- 12w 3d 181 lb 121/77 -?-?-?-?-?-?-?-?-?-?-?-?- 160 -?-?-?-?-?-?-?-?-?-?-?-?- SM- no vb crampi ng still having nausea, ordered compazine. NOB labs today 07/20/22 -?-?-?-?-?-?-?-?-?-?-?-?- 17w 4d 185 lb 4 oz 124/82 Nega tive -?-?-?-?-?-?-?-?-?-?-?-?- Negative 154 -?-?-?-?-?-?-?-?-?-?-?-?- -had VB 07/13 and went to ED for US and WNL. No bleeding since. Ordered anatomy US with WC. Light duty until then. 08/17/22 -?-?-?-?-?-?-?-?-?-?-?-?- 21w 4d 196 lb 6 oz 124/80 Nega tive -?-?-?-?-?-?-?-?-?-?-?-?- Negative 156 -?-?-?-?-?-?-?-?-?-?-?-?- -No Vb, LOF. G ood FM. Nl anatomy scan. 09/22/22 -?-?-?-?-?-?-?-?-?-?-?-?- 26w 5d 212 lb 8 oz 118/72 Nega tive -?-?-?-?-?-?-?-?-?-?-?-?- Negative 161 -?-?-?-?-?-?-?-?-?-?-?-?- MH-No Vb, LOF. G ood FM. Plans 28 wk labs tomorrow. Random episode of palpitations:order EKG and ref heart group. More anxiety, restarted aylaoft. Gave counseling info. 10/04/22 -?-?-?-?-?-?-?-?-?-?-?-?- 28w 3d 220 lb 114/74 Negative -?-?-?-?-?-?-?-?-?-?-?-?- Negative 150 28 -?-?-?-?-?-?-?-?-?-?--?-?- SM- no vb lof go od fm no regular ctx SM- no vb lof good fm no reg ular ctx discussed tdap 10/19/22 -?-?-?-?-?-?-?-?-?-?-?-?- 30w 4d 225 lb 2 oz 112/72 Nega tive -?-?-?-?-?-?-?-?-?-?-?-?- Negative 153 31 -?-?-?-?-?-?-?-?-?-?-?-?- MH-No Vb, LOF. G ood FM. Vomited glucose last week but will try again. Zofran given for use prior. 11/03/22 -?-?-?-?-?-?-?-?-?-?-?-?- 32w 5d 228 lb 6 oz 126/89 Nega tive -?-?-?-?-?-?-?-?-?-?-?-?- Negative 155 34 -?-?-?-?-?-?-?-?-?-?-?-?- JV- has not star charlie collecting glucose levels yet. tdap today. goals discussed. measuring large already, will plan for 36 or 37 week ultrasound for growth. 11/11/22 -?-?-?-?-?-?-?-?-?-?-?-?- 33w 6d 232 lb 121/82 Negative -?-?-?-?-?-?-?-?-?-?-?-?- Negative 150 -?-?-?-?-?-?-?-?-?-?-?-?- JV- glucose leve ls all elevated. sending to endo for insulin. if they cant get her in I will start. nst reactive. pt ad complex migraine yesterday. went to L&D for work up 11/16/22 -?-?-?-?-?-?-?-?-?-?-?-?- 34w 4d 229 lb 6 oz 149/88 101/69 Negative -?-?-?-?-?-?-?-?-?-?-?-?- Negative 145 -?-?-?-?-?-?-?-?-?-?-?-?- KW-NST only. thor ctive. has appt with Dr Soler today. reports BS still elevated at 2 hour PP 11/19/22 -?-?-?-?-?-?-?-?-?-?-?-?- 35w 0d 230 lb 8 oz 117/80 -?-?-?-?-?-?-?-?-?-?-?-?- 140 -?-?-?-?-?-?-?-?-?-?-?-?- SM- nst no vb lo f good fm no reguar ctx 11/23/22 -?-?-?-?-?-?-?-?-?-?-?-?- 35w 4d 232 lb 2 oz 120/78 120/78 Negative -?-?-?-?-?-?-?-?-?-?-?-?- Negative 135 37 -?-?-?-?-?-?-?-?-?-?-?-?- KW-NST. no vb/lo f/ctx +fm. GBS next visit. Insulin dose was increased to 20units by dr soler per pt. Has growth US on tuesday11/29/22 -?-?-?-?-?-?-?-?-?-?-?-?- 36w 3d 232 lb 4 oz 120/79 Nega tive -?-?-?-?-?-?-?-?-?-?-?-?- Negative 140 -?-?-?-?-?-?-?-?-?-?-?-?- SM-nst, gbs done 12/02/22 -?-?-?-?-?-?-?-?-?-?-?-?- 36w 6d 230 lb 120/74 -?-?-?-?-?-?-?-?-?-?-?-?- 140 37 -?-?-?-?-?-?-?-?-?-?-?-?- JV- nst reactive . glucose levels well controlled 12/07/22 -?-?-?-?-?-?-?-?-?-?-?-?- 37w 4d 233 lb 109/72 109/72 109/72 Negative -?-?-?-?-?-?-?-?-?-?-?-?- Negative 135 40 Cephalic 0 .5 -?-?-?-?-?-?-?-?-?-?-?-?- 50 -2 KW- +Fm. n o lof/vb/regular ctx. Last growth [id number]-3329 at 36.0 weeks. est weight at 39 weeks -4,009 to 4250 grams. Discussed with SM. Plan for IOL at 38 weeks for EFW of 2692-4072 grams. IOL scheduled KW- +Fm. no lof/vb/regular c tx. Last growth [id number]-3329 at 36.0 weeks. est weight at 39 weeks -4,009 to 4250 grams. Discussed with SM. Plan for IOL at 38 weeks for EFW of 0571-7760 grams and uncontrolled GDM. IOL scheduled. reports good glucose control since last insulin increase. 12/10/22 -?-?-?-?-?-?-?-?-?-?-?-?- 38w 0d 232 lb 4 oz 122/81 Nega tive -?-?-?-?-?-?-?-?-?-?-?-?- Negative 140 -?-?-?-?-?-?-?-?-?-?-?-?- LC-reactive NST. glucose better controlled on triseba. NST FHR Rate Baby A Baseline: 135 Variability:: Moderate Accelerations:: 15 x 15 Decelerations:: None NST Reactive:: Yes FHR Category:: Category I Uterine Activity:: irregular ROS Cardiovascular Cardiovascular: Denies abdominal pain, chest pain, diaphoresis or dyspnea Respiratory/Chest Respiratory/Chest: Denies change in mental status or cough Genitourinary Genitourinary: Reports change in urinary stream Musculoskeletal Musculoskeletal: Reports none Integumentary Integumentary: Reports none Neurologic Neurologic: Reports none Psychiatric Psychiatric: Reports none Endocrine Endocrinology: Reports none Hematologic/Lymphatic Hematologic/Lymphatic: Reports none Allergic/Immunologic Allergic/Immunologic: Reports none Vital Signs Vital Signs Vital Signs: 12/13/22 19:41 12/13/22 19:42 12/13/22 19:42 Temperature Pulse Rate 96 Blood Pressure 140/86 H BP Systolic 140 BP Diastolic 86 Pulse Ox 98 12/13/22 19:41 12/13/22 22:35 12/13/22 22:35 Temperature 97.9 F Pulse Rate 92 Blood Pressure 143/95 H BP Systolic 143 BP Diastolic 95 Pulse Ox 12/13/22 22:36 12/13/22 23:31 12/13/22 23:31 Temperature 97.2 F L Pulse Rate 77 Blood Pressure 111/55 L BP Systolic 111 BP Diastolic 55 Pulse Ox Weight Weight: 233 lb 7.512 oz Physical Exam Const alert, oriented x3 and no apparent distress General Appearance: cooperative, comfortable and well kempt Orientation / Consciousness: awake and oriented to person Exam Limitations: no limitations HEENT normocephalic Neck full ROM Chest inspection of chest normal Resp normal respiratory effort, normal air movement and no retractions Effort and Inspection: able to speak in complete sentences and symmetric chest movement Cardio regular rate Peripheral Pulses: pulses 2+ throughout GI normal to inspection, nondistended, normoactive bowel sounds Inspection: gravid no CVA tenderness and appearance of the vagina normal External Female Exam: normal appearance of the urethra; Negative for external lesion OB / External & Speculum: external exam normal Manual OB Exam: estimated gestational size appropriate and presentation cephalic Uterus Palpation: Negative for uterus tender Extremity normal to inspection Skin no rashes or lesions noted Psych Activity / Motor Behavior: appropriate eye contact Speech: normal speech Labs Labs Labs: Blood Type O POSITIVE Antibody Screen NEGATIVE Hct 37.0 % (37-47) Hgb 12.0 g/dL (12.0-15.0) Obstetrics US Syphilis Total Ab Non-reactive Rubella IgG Antibody Reactive (Nonreactive) Hep Bs Antigen Non-Reactive (Nonreactive) Chlamydia DNA (REY[place]LDO) Negative (Negative) Neisseria gonorrhoeae DNA (RE[place]LDO) Negative (Negative) HIV 1&2 Antibody Non-Reactive (Nonreactive) Glucose 1 Hr 50 gm 201 mg/dL (70-140) H Assessment & Plan (1) Gestational diabetes: COMMENT: on Tresiba per Dr. 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 to see endo start twice weekly nsts. PLAN: antepartum glucose monitoring per protocol (2) Migraine with aura: (3) GBS (group B Streptococcus carrier), +RV culture, currently : COMMENT: treat with PCN in labor PLAN: treat once starting pitocin (4) Depression: COMMENT: not currently medicated. stable. Restarted zoloft. Counseling enc. Stable (5) : QUALIFIERS: Weeks of gestation: 38 weeks Qualified Code(s): Z3A.38 - 38 weeks gestation of COMMENT: declined genetic, carrier, ntd testing. nl anatomy. growth 92% nl fluid (6) Asthma: COMMENT: controlled no regular inhaler use (7) Supervision of high risk , antepartum: COMMENT: PRR , DILLON 12/24/22 BF Charlie Valderrama Jr. (8) Encounter for induction of labor: COMMENT: medical IOL for uncontrolled GDM cytotec until favorable plan pitocin/johns bulb in AM PLAN: Dr.Vande Cameron updated on admission, exam and POC. agrees with above. co-management for uncontrolled diabetes. to start insulin infusion if next glucose greater than 120. 12/14/22 0036 <Electronically signed by Kate Guy CNM> Cosigner Signature (if applicable): CC: TIFFANIE Guy; No Primary Care Physician~ Signed [facility] Work Phone: [phone]) 620-883005-03-2022 Miscellaneous Notes* Telephone Encounter - Rohan Villalba APRN.SUSANA - 11/17/2021 8:08 AM EDT Attempted to call patient left message to return call. Patient is positive for BV prescribed flagyl bid for 7 days. Negative for GC, chlamydia, yeast, and trich. If patient calls back tell her about antibiotics prescribed and to follow up if the symptoms do notget better with treatment or anything changes. Thank you. talked with patient okay with this care plan. [facility] History of Present illness Narrative* Becca Stearns PA-C - 11/05/2021 12:58 PM EDT This note was created using Exit41. Subjective Shawanda Brink is a 16 year old female. HPI [...] FACTOR 5 DISORDER Paternal great aunt other ([place]) Maternal Grandfather 49 Social History Tobacco Use [...] complaints. Becca Stearns PA-C documented in this encounterUniversity [facility]04-21-[facility]22 Instructions* Patient Instructions* Becca Sterans PA-C - 11/05/2021 12:26 PM EDT Keep hand elevated, the swelling should resolve in the next few days. If getting significantly worse, or you develop other symptoms be seen again. documented in this encounterUniversity [facility] [place] [facility]* Diagnosis Swelling of left hand- Primary documented in this encounter [facility] [place] noteNo assessment information availableWOhioHealth Work Phone: Evaluation note* Diagnosis Onset Date Resolution Status Asthma acute Depression acute acute Supervision of high risk , antepartum acute [facility] Work Phone: Evaluation note* Diagnosis Onset Date Resolution Status Asthma acute Depression acute acute Supervision of high risk , antepartum acute Asthma acute Depression acute acute Supervision of high risk , antepartum acute [facility] Work Phone: evaluation note* Diagnosis Onset Date Resolution Status Asthma acute Depression acute acute Supervision of high risk , antepartum acute Asthma acute Depression acute acute Supervision of high risk , antepartum acute Bleeding in early acute acute Supervision of high risk , antepartum acute Depression acute acute Supervision of high risk , antepartum acute [facility] Work Phone: evaluation note* Diagnosis Onset Date Resolution Status Asthma acute Depression acute acute Supervision of high risk , antepartum acute acute Supervision of high risk , antepartum acute Bleeding in early resolved Depression acute acute Supervision of high risk , antepartum acute Asthma acute Depression acute Palpitations acute acute Supervision of high risk , antepartum acute [facility] Work Phone: evaluation note* Diagnosis Onset Date Resolution Status acute Supervision of high risk , antepartum acute Bleeding in early resolved Depression acute acute Supervision of high risk , antepartum acute Asthma acute Depression acute Palpitations acute acute Supervision of high risk , antepartum acute Asthma acute Depression acute Palpitations acute acute Supervision of high risk , antepartum acute Palpitations acute Asthma acute Depression acute Palpitations acute acute Supervision of high risk , antepartum acute [facility] Work Phone: evaluation note* Diagnosis Onset Date Resolution Status acute Supervision of high risk , antepartum acute Bleeding in early resolved Depression acute acute Supervision of high risk , antepartum acute Asthma acute Depression acute Palpitations acute acute Supervision of high risk , antepartum acute Asthma acute Depression acute Palpitations acute acute Supervision of high risk , antepartum acute Palpitations acute Asthma acute Depression acute Palpitations acute acute Supervision of high risk , antepartum acute Asthma acute Depression acute Gestational diabetes acute Palpitations acute acute Supervision of high risk , antepartum acute [facility] Work Phone: evaluation note* Diagnosis Onset Date Resolution Status Asthma acute Depression acute Palpitations acute acute Supervision of high risk , antepartum acute Asthma acute Depression acute Palpitations acute acute Supervision of high risk , antepartum acute Palpitations acute Asthma acute Depression acute Palpitations acute acute Supervision of high risk , antepartum acute Asthma acute Depression acute Gestational diabetes acute Palpitations acute acute Supervision of high risk , antepartum acute Asthma acute Depression acute Gestational diabetes acute Palpitations acute acute Supervision of high risk , antepartum acute Asthma acute Depression acute Gestational diabetes acute Palpitations acute acute Supervision of high risk , antepartum acute Asthma acute Depression acute Gestational diabetes acute Migraine with aura acute Palpitations acute acute Supervision of high risk , antepartum acute Gestational diabetes acute Gestational diabetes mellitus noneactive Asthma acute Depression acute Gestational diabetes acute Migraine with aura acute Palpitations acute acute Supervision of high risk , antepartum acute Asthma acute Depression acute Gestational diabetes acute Migraine with aura acute Palpitations acute acute Supervision of high risk , antepartum acute Asthma acute Depression acute Gestational diabetes acute Migraine with aura acute Palpitations acute acute Supervision of high risk , antepartum acute Asthma acute Depression acute Gestational diabetes acute Migraine with aura acute Palpitations acute acute Supervision of high risk , antepartum acute Gestational diabetes acute Asthma acute Depression acute GBS (group B Streptococcus c arrier), +RV culture, currently acute Gestational diabetes acute Migraine with aura acute Palpitations acute acute Supervision of high risk , antepartum acute Asthma acute Depression acute GBS (group B Streptococcus c arrier), +RV culture, currently acute Gestational diabetes acute Migraine with aura acute Palpitations acute acute Supervision of high risk , antepartum acute Asthma acute Depression acute Encounter for induction of labor acute GBS (group B Streptococcus c arrier), +RV culture, currently acute Gestational diabetes acute Migraine with aura acute Palpitations acute acute Supervision of high risk , antepartum acute [place] [facility] Work Phone: Evaluation note* Diagnosis Onset Date Resolution Status Asthma acute Depression acute Palpitations resolved resolved Supervision of high risk , antepartum resolved Asthma acute Depression acute Palpitations resolved resolved Supervision of high risk , antepartum resolved Palpitations resolved Asthma acute Depression acute Palpitations resolved resolved Supervision of high risk , antepartum resolved Asthma acute Depression acute Gestational diabetes acute Palpitations resolved resolved Supervision of high risk , antepartum resolved Asthma acute Depression acute Gestational diabetes acute Palpitations resolved resolved Supervision of high risk , antepartum resolved Asthma acute Depression acute Gestational diabetes acute Palpitations resolved resolved Supervision of high risk , antepartum resolved Asthma acute Depression acute Gestational diabetes acute Migraine with aura resolved Palpitations resolved resolved Supervision of high risk , antepartum resolved Gestational diabetes acute Gestational diabetes mellitus noneactive Asthma acute Depression acute Gestational diabetes acute Migraine with aura resolved Palpitations resolved resolved Supervision of high risk , antepartum resolved Asthma acute Depression acute Gestational diabetes acute Migraine with aura resolved Palpitations resolved resolved Supervision of high risk , antepartum resolved Asthma acute Depression acute Gestational diabetes acute Migraine with aura resolved Palpitations resolved resolved Supervision of high risk , antepartum resolved Asthma acute Depression acute Gestational diabetes acute Migraine with aura resolved Palpitations resolved resolved Supervision of high risk , antepartum resolved Gestational diabetes acute Asthma acute Depression acute Gestational diabetes acute GBS (group B Streptococcus c arrier), +RV culture, currently resolved Migraine with aura resolved Palpitations resolved resolved Supervision of high risk , antepartum resolved Asthma acute Depression acute Gestational diabetes acute GBS (group B Streptococcus c arrier), +RV culture, currently resolved Migraine with aura resolved Palpitations resolved resolved Supervision of high risk , antepartum resolved Anemia due to blood loss, acute acute Asthma acute Depression acute Gestational diabetes acute hemorrhage acute Vaginal delivery acute Encounter for induction of labor resolved GBS (group B Streptococcus c arrier), +RV culture, currently resolved Migraine with aura resolved Palpitations resolved resolved Supervision of high risk , antepartum resolved [place] [facility] Work Phone: Evaluation note* Diagnosis Onset Date Resolution Status Asthma acute Depression acute Palpitations resolved resolved Supervision of high risk , antepartum resolved Asthma acute Depression acute Palpitations resolved resolved Supervision of high risk , antepartum resolved Palpitations resolved Asthma acute Depression acute Palpitations resolved resolved Supervision of high risk , antepartum resolved Asthma acute Depression acute Gestational diabetes acute Palpitations resolved resolved Supervision of high risk , antepartum resolved Asthma acute Depression acute Gestational diabetes acute Palpitations resolved resolved Supervision of high risk , antepartum resolved Asthma acute Depression acute Gestational diabetes acute Palpitations resolved resolved Supervision of high risk , antepartum resolved Asthma acute Depression acute Gestational diabetes acute Migraine with aura resolved Palpitations resolved resolved Supervision of high risk , antepartum resolved Gestational diabetes acute Gestational diabetes mellitus noneactive Asthma acute Depression acute Gestational diabetes acute Migraine with aura resolved Palpitations resolved resolved Supervision of high risk , antepartum resolved Asthma acute Depression acute Gestational diabetes acute Migraine with aura resolved Palpitations resolved resolved Supervision of high risk , antepartum resolved Asthma acute Depression acute Gestational diabetes acute Migraine with aura resolved Palpitations resolved resolved Supervision of high risk , antepartum resolved Asthma acute Depression acute Gestational diabetes acute Migraine with aura resolved Palpitations resolved resolved Supervision of high risk , antepartum resolved Gestational diabetes acute Asthma acute Depression acute Gestational diabetes acute GBS (group B Streptococcus c arrier), +RV culture, currently resolved Migraine with aura resolved Palpitations resolved resolved Supervision of high risk , antepartum resolved Asthma acute Depression acute Gestational diabetes acute GBS (group B Streptococcus c arrier), +RV culture, currently resolved Migraine with aura resolved Palpitations resolved resolved Supervision of high risk , antepartum resolved Anemia due to blood loss, acute acute Asthma acute Depression acute Gestational diabetes acute hemorrhage acute Vaginal delivery acute Encounter for induction of labor resolved GBS (group B Streptococcus c arrier), +RV culture, currently resolved Migraine with aura resolved Palpitations resolved resolved Supervision of high risk , antepartum resolved Care and examination of lactating mother noneactive Engorgement of breast associ ated with childbirth, noneactive Vaginal discharge noneactive Dysuria noneactive [facility] Work Phone: Evaluation note* Diagnosis Bacterial sinusitis- Primary Unspecified sinusitis (chronic) documented in this encounter [facility] note* Diagnosis Onset Date Resolution Status Depression acute Anxiety acute Asthma acute Depression acute Former smoker acute Hx of gestational diabetes i n prior , currently acute acute Short interval between pregn ancies affecting , antepartum acute Supervision of high-risk acute [facility] Work Phone: Evaluation note* Diagnosis Acute conjunctivitis of both eyes, unspecified acute conjunctivitis type- Primary Hordeolum externum right upper eyelid documented in this encounter [facility] [place] [facility]* Diagnosis Sore throat- Primary Acute pharyngitis documented in this encounter [facility] note* Diagnosis Encounter for medical examination to establish care- Primary Bipolar II disorder (HCC) Other bipolar disorders Urinary frequency Anxiety and depression Dysthymic disorder documented in this encounter [facility] note* Diagnosis Major depressive disorder, recurrent episode, moderate (HCC)- Primary Major depressive disorder, recurrent episode, moderate Generalized anxiety disorder documented in this encounter [facility] note* Diagnosis Major depressive disorder, recurrent episode, mild (HCC)- Primary Major depressive disorder, recurrent episode, mild documented in this encounter [facility] [place] [facility]* Diagnosis Sinobronchitis- Primary Unspecified sinusitis (chronic) Acute cough documented in this encounter [facility] [place] [facility]* Diagnosis MARK (generalized anxiety disorder)- Primary Generalized anxiety disorder anxiety Mental disorders of mother, Social anxiety disorder Social phobia Moderate episode of recurrent major depressive disorder (HCC) documented in this encounter [facility] [place] [facility]* Diagnosis NO SHOW- Primary documented in this encounter [facility] [place] [facility]* Diagnosis anxiety- Primary Mental disorders of mother, Moderate episode of recurrent major depressive disorder (HCC) MARK (generalized anxiety disorder) Generalized anxiety disorder Social anxiety disorder Social phobia Encounter for long-term (current) use of medications Encounter for long-term (current) use of other medications documented in this encounter [facility] [place] [facility]* Diagnosis URI, acute- Primary Acute upper respiratory infections of unspecified site documented in this encounter [facility] [place] [facility]* Diagnosis MARK (generalized anxiety disorder)- Primary Generalized anxiety disorder Moderate episode of recurrent major depressive disorder (HCC) Social anxiety disorder Social phobia Encounter for long-term (current) use of medications Encounter for long-term (current) use of other medications Psychosocial stressors Other psychological or physical stress, not elsewhere classified documented in this encounter [facility] [place] [facility]* Diagnosis Need for vaccination- Primary Need for prophylactic vaccination and inoculation against unspecified single disease documented [facility] this encounter [facility] [place] [facility]* Diagnosis Encounter for immunization- Primary Need for other specified prophylactic vaccination against single bacterial disease documented [facility] this encounter [facility] [place] [facility]* Diagnosis Urinary frequency- Primary Low back pain with sciatica, sciatica laterality unspecified, unspecified back pain laterality, unspecified chronicity documented in this encounter [facility] [place] [facility]* Diagnosis NO SHOW- Primary Need for vaccination Need for prophylactic vaccination and inoculation against unspecified single disease documented [facility] this encounter [facility] [place] [facility]* Diagnosis Migraine with aura, intractable, without status migrainosus Mother currently breast-feeding (HCC) documented in this encounter [facility] [place] [facility]* Diagnosis Migraine with aura, intractable, without status migrainosus- Primary Palpitations Tachycardia Tachycardia, unspecified Encounter for test, result unknown documented in this encounter [facility] [place] [facility]* Diagnosis Migraine without status migrainosus, not intractable, unspecified migraine type- Primary Unsteadiness on feet Abnormality of gait Numbness and tingling Disturbance of skin sensation Demyelinating disease of central nervous system (HCC) Demyelinating disease of central nervous system, unspecified Blurred vision Other specified visual disturbances Dizziness and giddiness [facility] Diagnosis Migraine without status migrainosus, not intractable, unspecified migraine type Unsteadiness on feet Abnormality of gait Numbness and tingling Disturbance of skin sensation Demyelinating disease of central nervous system (HCC) Demyelinating disease of central nervous system, unspecified [facility] Diagnosis Impacted cerumen of right ear- Primary Impacted cerumen Rhinosinusitis Unspecified sinusitis (chronic) [facility]* Diagnosis Strep pharyngitis- Primary Streptococcal sore throat Sore throat Acute pharyngitis [facility]* Diagnosis Pharyngitis, unspecified etiology- Primary Viral illness Unspecified viral infection, in conditions classified elsewhere and of unspecified site [facility] Diagnosis Family history of thyroid disease- Primary Family history of other endocrine and metabolic diseases [facility]* Diagnosis Sore throat- Primary Acute pharyngitis [facility]* Diagnosis Annual physical exam- Primary Routine general medical examination at a health care facility Screening-pulmonary TB Screening examination for pulmonary tuberculosis Gastroesophageal reflux disease, unspecified whether esophagitis present Migraine without aura, not intractable, without status migrainosus Anxiety disorder, unspecified type [facility]* Diagnosis Hx of gestational diabetes mellitus, not currently - Primary Personal history of gestational diabetes [facility]* Diagnosis Intractable migraine with aura without status migrainosus- Primary Migraine with aura, with intractable migraine, so stated, without mention of status migrainosus Positional lightheadedness Dizziness and giddiness [facility]* Diagnosis Asymptomatic varicose veins of right lower extremity- Primary Asymptomatic varicose veins Hypotension, unspecified hypotension type [facility]* Diagnosis Mixed obsessional thoughts and acts- Primary Moderate episode of recurrent major depressive disorder (HCC) Encounter for long-term (current) use of medications Encounter for long-term (current) use of other medications anxiety (HCC) Mental disorders of mother, [facility] Diagnosis Dizziness- Primary Dizziness and giddiness SOB (shortness of breath) Shortness of breath Nasal congestion Other diseases of nasal cavity and sinuses Right leg pain Pain in limb [facility] Diagnosis NO SHOW- Primary [facility] [facility] CenterProgress note Author Dr. Ochoa [facility] December 17, 2022 1:14pm Note Date/Time December 17, 2022 1:14p m [facility] Medical Records Department [address] [place] [address] Progress Note - OBGYN 12/17/22 1311 MR#: [id number] Acct: [id number] Name: SHAWANDA BRINK Rep #:[id number] 8 : 2005 17 From: Deborah pierre MD PCP: Care Physician,No Primary Status :ADM IN Location: [place] [address] Subjective Subjective Patient doing well without complaints. Tolerating PO. Ambulating and voiding without difficulty. feeding well. Denies chest pain, shortness of breath,calf pain/swelling, fevers, chills, lightheadedness. Objective Data Objective Data Vital Signs: Vital Signs Temp Pulse Resp BP Pulse Ox O2 Del Method 97.2 F L 86 16 107/59 L 98 Room Air 12/17/22 08:44 12/17/22 08:45 12/17/22 08:43 12/17/22 08:44 12/17/22 08:45 12/17/22 08:43 Oxygen Delivery Method Room Air Weight: 233 lb 7.512 oz Intake & Output: Intake and Output for Last 24 Hours 12/15/22 12/16/22 12/17/22 23:59 23:59 23:59 Intake Total 2882.01 / 2882.01 610 / 1410 800 / 800 Output Total 2000 / 2200 200 / 200 Balance 882.01 / 682.01 410 / 1210 800 / 800 Lab / Micro Data Result Diagrams: 12/16/22 11:00 Labs: Laboratory Results - last 24 hr 12/15/22 10:37: POC Glucose 68 L 12/15/22 10:50: POC Glucose 67 L 12/16/22 05:49: POC Glucose 66 L ROS Constitutional Constitutional: Reports systems reviewed and no addt'l complaints, except as documented Cardiovascular Cardiovascular: Reports systems reviewed and no addt'l complaints, except as documented Respiratory/Chest Respiratory/Chest: Reports systems reviewed and no addt'l complaints, except as documented Gastrointestinal Gastrointestinal: Reports systems reviewed and no addt'l complaints, except as documented Physical Exam Const alert, oriented x3 and no apparent distress HEENT Head and Scalp: atraumatic Resp normal respiratory effort GI soft to palpation and non-tender Bimanual Exam - Vag & Uterus: uterus non-tender Uterus Palpation: uterus fundus firm (below Umbilicus) Assessment & Plan (1) Anemia due to blood loss, acute: COMMENT: IV venofer, repeat cbc stable. asymptomatic. (2) hemorrhage: (3) Vaginal delivery: COMMENT: JV 39 IOL gdm PPH PLAN: Plan s/p PPD # 2 1. routine post delivery care 2. breast feeding- support given 3. rh positive 4. rubella immune see above details for plan comments with specifics 12/17/22 1314 <Electronically signed by Deborah Ochoa MD> Cosigner Signature (if applicable): CC: ~ Signed [facility] Work Phone: Reason for visit Narrative* MRI/CT (Urgent) - Closed Specialty Diagnoses / Procedures Referred By Margarita t Referred To Contact [facility] Diagnoses Migraine without status migrainosus, not intractable, unspecified migraine type Unsteadiness on feet Numbness and tingling Demyelinating disease of central nervous system (HCC) Procedures MRI BRAIN WO IVCON MRI BRAIN BRAIN STEM W/O CONTRAST MATERIAL sIsac Fernández MD [address] [place] [address] Phone: tel: fax: [place] [id number] Referral ID Status Reason Start Date Expiration Date V isits Requested Visits Authorized [id number] Closed Auto-Generate d Referral 01/25/2025 07/17/2025 1 1 [facility] Chief Complaint and Reason for Visit Chief Complaint PREG Chief Complaint PREG NOB LMP 03/03/22 Reason for Visit Asthma Depression Supervision of high risk , antepartum Chief Complaint PREG NOB LMP 08/17/22 12 WK OB VAGINAL BLEEDING Reason for Visit Asthma Depression Supervision of high risk , antepartum Asthma Depression Supervision of high risk , antepartum Chief Complaint PREG NOB LMP 03/03/22 12 WK OB VAGINAL BLEEDING est ob 16/17 weeks HIGH RISK 21 WK OB Reason for Visit Asthma Depression Supervision of high risk , antepartum Asthma Depression Supervision of high risk , antepartum Bleeding in early Supervision of high risk , antepartum Depression Supervision of high risk , antepartum Chief Complaint 12 WK OB VAGINAL BLEEDING est ob 16/17 weeks HIGH RISK 21 WK OB 26 WK OB PALPITATIONS ROUTINE Reason for Visit Asthma Depression Supervision of high risk , antepartum Supervision of high risk , antepartum Bleeding in early Depression Supervision of high risk , antepartum Asthma Depression Palpitations Supervision of high risk , antepartum Chief Complaint VAGINAL BLEEDING est ob 16/17 weeks HIGH RISK 21 WK OB 26 WK OB PALPITATIONS ROUTINE 28 WK OB Amb Documentation PALP/ HIGH RISK PREG (CHUY) PALPITATIONS, HIGH RISK 30 WK OB Reason for Visit Supervision of high risk , antepartum Bleeding in early Depression Supervision of high risk , antepartum Asthma Depression Palpitations Supervision of high risk , antepartum Asthma Depression Palpitations Supervision of high risk , antepartum Palpitations Asthma Depression Palpitations Supervision of high risk , antepartum Chief Complaint VAGINAL BLEEDING est ob 16/17 weeks HIGH RISK 21 WK OB 26 WK OB PALPITATIONS ROUTINE 28 WK OB Amb Documentation PALP/ HIGH RISK PREG (CHUY) PALPITATIONS, HIGH RISK 30 WK OB E-ORDER 32 WK OB Reason for Visit Supervision of high risk , antepartum Bleeding in early Depression Supervision of high risk , antepartum Asthma Depression Palpitations Supervision of high risk , antepartum Asthma Depression Palpitations Supervision of high risk , antepartum Palpitations Asthma Depression Palpitations Supervision of high risk , antepartum Asthma Depression Gestational diabetes Palpitations Supervision of high risk , antepartum Chief Complaint 26 WK OB PALPITATIONS ROUTINE 28 WK OB Amb Documentation PALP/ HIGH RISK PREG (CHUY) PALPITATIONS, HIGH RISK 30 WK OB E-ORDER 32 WK OB R/O PRE E ER F/U R/O PRE E 34 wk nst Gestational diabetes 34 wk ob/nst 35 WK OB/NST 35 WK NST GROWTH 36 WK OB/NST 36 WK NST 37 WK OB/NST GESTATIONAL DIABETES 37 WK NST VAG DELIVERY INDUCTION INDUCTION VAG DELIVERY Reason for Visit Asthma Depression Palpitations Supervision of high risk , antepartum Asthma Depression Palpitations Supervision of high risk , antepartum Palpitations Asthma Depression Palpitations Supervision of high risk , antepartum Asthma Depression Gestational diabetes Palpitations Supervision of high risk , antepartum Asthma Depression Gestational diabetes Palpitations Supervision of high risk , antepartum Asthma Depression Gestational diabetes Palpitations Supervision of high risk , antepartum Asthma Depression Gestational diabetes Migraine with aura Palpitations Supervision of high risk , antepartum Gestational diabetes Gestational diabetes mellitus Asthma Depression Gestational diabetes Migraine with aura Palpitations Supervision of high risk , antepartum Asthma Depression Gestational diabetes Migraine with aura Palpitations Supervision of high risk , antepartum Asthma Depression Gestational diabetes Migraine with aura Palpitations Supervision of high risk , antepartum Asthma Depression Gestational diabetes Migraine with aura Palpitations Supervision of high risk , antepartum Gestational diabetes Asthma Depression GBS (group B Streptococcus carrier), +RV culture, currently Gestational diabetes Migraine with aura Palpitations Supervision of high risk , antepartum Asthma Depression GBS (group B Streptococcus carrier), +RV culture, currently Gestational diabetes Migraine with aura Palpitations Supervision of high risk , antepartum Asthma Depression Encounter for induction of labor GBS (group B Streptococcus carrier), +RV culture, currently Gestational diabetes Migraine with aura Palpitations Supervision of high risk , antepartum Chief Complaint 26 WK OB PALPITATIONS ROUTINE 28 WK OB Amb Documentation PALP/ HIGH RISK PREG (CHUY) PALPITATIONS, HIGH RISK 30 WK OB E-ORDER 32 WK OB R/O PRE E ER F/U R/O PRE E 34 wk nst Gestational diabetes 34 wk ob/nst 35 WK OB/NST 35 WK NST GROWTH 36 WK OB/NST 36 WK NST 37 WK OB/NST GESTATIONAL DIABETES 37 WK NST VAG DELIVERY INDUCTION INDUCTION VAG DELIVERY VAG DELIVERY Reason for Visit Asthma Depression Palpitations Supervision of high risk , antepartum Asthma Depression Palpitations Supervision of high risk , antepartum Palpitations Asthma Depression Palpitations Supervision of high risk , antepartum Asthma Depression Gestational diabetes Palpitations Supervision of high risk , antepartum Asthma Depression Gestational diabetes Palpitations Supervision of high risk , antepartum Asthma Depression Gestational diabetes Palpitations Supervision of high risk , antepartum Asthma Depression Gestational diabetes Migraine with aura Palpitations Supervision of high risk , antepartum Gestational diabetes Gestational diabetes mellitus Asthma Depression Gestational diabetes Migraine with aura Palpitations Supervision of high risk , antepartum Asthma Depression Gestational diabetes Migraine with aura Palpitations Supervision of high risk , antepartum Asthma Depression Gestational diabetes Migraine with aura Palpitations Supervision of high risk , antepartum Asthma Depression Gestational diabetes Migraine with aura Palpitations Supervision of high risk , antepartum Gestational diabetes Asthma Depression Gestational diabetes GBS (group B Streptococcus carrier), +RV culture, currently Migraine with aura Palpitations Supervision of high risk , antepartum Asthma Depression Gestational diabetes GBS (group B Streptococcus carrier), +RV culture, currently Migraine with aura Palpitations Supervision of high risk , antepartum Anemia due to blood loss, acute Asthma Depression Gestational diabetes hemorrhage Vaginal delivery Encounter for induction of labor GBS (group B Streptococcus carrier), +RV culture, currently Migraine with aura Palpitations Supervision of high risk , antepartum Chief Complaint 26 WK OB PALPITATIONS ROUTINE 28 WK OB Amb Documentation PALP/ HIGH RISK PREG (CHUY) PALPITATIONS, HIGH RISK 30 WK OB E-ORDER 32 WK OB R/O PRE E ER F/U R/O PRE E 34 wk nst Gestational diabetes 34 wk ob/nst 35 WK OB/NST 35 WK NST GROWTH 36 WK OB/NST 36 WK NST 37 WK OB/NST GESTATIONAL DIABETES 37 WK NST VAG DELIVERY INDUCTION INDUCTION VAG DELIVERY VAG DELIVERY VAG DELIVERY Latch Assessment post pain, swollen labia, msd appt on 12/29 Pelvic and perineal pain Reason for Visit Asthma Depression Palpitations Supervision of high risk , antepartum Asthma Depression Palpitations Supervision of high risk , antepartum Palpitations Asthma Depression Palpitations Supervision of high risk , antepartum Asthma Depression Gestational diabetes Palpitations Supervision of high risk , antepartum Asthma Depression Gestational diabetes Palpitations Supervision of high risk , antepartum Asthma Depression Gestational diabetes Palpitations Supervision of high risk , antepartum Asthma Depression Gestational diabetes Migraine with aura Palpitations Supervision of high risk , antepartum Gestational diabetes Gestational diabetes mellitus Asthma Depression Gestational diabetes Migraine with aura Palpitations Supervision of high risk , antepartum Asthma Depression Gestational diabetes Migraine with aura Palpitations Supervision of high risk , antepartum Asthma Depression Gestational diabetes Migraine with aura Palpitations Supervision of high risk , antepartum Asthma Depression Gestational diabetes Migraine with aura Palpitations Supervision of high risk , antepartum Gestational diabetes Asthma Depression Gestational diabetes GBS (group B Streptococcus carrier), +RV culture, currently Migraine with aura Palpitations Supervision of high risk , antepartum Asthma Depression Gestational diabetes GBS (group B Streptococcus carrier), +RV culture, currently Migraine with aura Palpitations Supervision of high risk , antepartum Anemia due to blood loss, acute Asthma Depression Gestational diabetes hemorrhage Vaginal delivery Encounter for induction of labor GBS (group B Streptococcus carrier), +RV culture, currently Migraine with aura Palpitations Supervision of high risk , antepartum Care and examination of lactating mother Engorgement of breast associated with childbirth, Vaginal discharge Dysuria Chief Complaint PP depression discus thor New OB, LMP 04/23/23 Reason for Visit Depression Anxiety Asthma Depression Former smoker Hx of gestational diabetes in prior , currently Short interval between pregnancies affecting , antepartum Supervision of high-risk Family History No Family History Records Found Relationship Condition Age at Onset Recorded Date/T michaela grandmother Malignant neoplasm of cervix 40 Relationship Condition Age at Onset Recorded Date/T michaela grandmother Malignant neoplasm of cervix 40 grandfather Myocardial infarction Unknown Relationship Condition Age at Onset Recorded Date/T michaela grandmother Malignant neoplasm of cervix 40 Family history of recurrent miscarriage U nknown grandfather Myocardial infarction Unknown father Cardiac disease Unknown mother Family history of recurrent miscarriage U nknown aunt Family history of recurrent miscarriage U nknown Advance Directives No Advanced Directives Records Found Advance Directive Response Recorded Date/ Time Living Will No July 13 9:46pm Power of Envelope Cutter No July 13, 2022 9:46pm Advance Directive Response Recorded Date/ Time Living Will No July 13 10:46pm Power of Envelope Cutter No July 13, 2022 10:46pm Advance Directive Response Recorded Date/ Time Living Will No December 13, 2022 7 :51pm Power of Envelope Cutter No December 13, 2022 7:51pm Advance Directive Response Recorded Date/ Time Living Will No December 30, 2022 1:07pm Power of Envelope Cutter No December 30 1:07pm Advance Directive Response Recorded Date/ Time Living Will No December 30, 2022 12:07pm Power of Envelope Cutter No December 30 12:07pm Summary Purpose Reason for Referral Specialty Diagnoses / Procedures Referred By Contac t Referred To Contact Diagnoses Bipolar II disorder (HCC) Procedures CONSULT TO PRIMARY [facility]ARE BEH[facility]IORAL HE[facility] ADULT MarilogVeronica berger APRN.[facility] [address] [place] [address] Referral ID Status Reason Start Date Expiration Date Visits Requested Visits Authorized [id number] Ref Not Required PCP Requested Referral 03/21/2024 2024 1 1 Specialty Diagnoses / Procedures Referred By Contac t Referred To Contact Diagnoses Major depressive disorder, recurrent episode, mild (HCC) Procedures CONSULT TO WOM[facility]'S BE[facility]IORAL HEALTH OFFICE/OUTPATIENT [facility] 60 MINUTES Toshia Hess [facility] [address] [place] [address] Referral ID Status Reason Start Date Expiration Date Visits Requested Visits Authorized [id number] Authorized PCP Requested Referral 04/13/2024 04/13/2025 1 1 Additional Source Comments Source Comments (unrecognize d section and content) In the event this informatio n is protected by the Federal Confidentiality of Alcohol and Drug Abuse Patient Records regulations: The Federal rules restrict any use of the information to criminally investigate or prosecute any alcohol or drug abuse patient.[facility] Center[facility] the event this information is protected by the Federal Confidentiality of Alcohol and Drug Abuse Patient Records regulations: The Federal rules restrict any use of the information to criminally investigate or prosecute any alcohol or drug abuse patient.[facility] CenterIn the event this information is protected by the Federal Confidentiality of Alcohol and Drug Abuse Patient Records regulations: The Federal rules restrict any use of the information to criminally investigate or prosecute any alcohol or drug abuse patient.[facility] CenterIn the event this information is protected by the Federal Confidentiality of Alcohol and Drug Abuse Patient Records regulations: The Federal rules restrict any use of the information to criminally investigate or prosecute any alcohol or drug abuse patient.[facility] CenterIn the event this information is protected by the Federal Confidentiality of Alcohol and Drug Abuse Patient Records regulations: The Federal rules restrict any use of the information to criminally investigate or prosecute any alcohol or drug abuse patient.[facility] CenterIn the event this information is protected by the Federal Confidentiality of Alcohol and Drug Abuse Patient Records regulations: The Federal rules restrict any use of the information to criminally investigate or prosecute any alcohol or drug abuse patient.[facility] CenterIn the event this information is protected by the Federal Confidentiality of Alcohol and Drug Abuse Patient Records regulations: The Federal rules restrict any use of the information to criminally investigate or prosecute any alcohol or drug abuse patient.[facility] CenterIn the event this information is protected by the Federal Confidentiality of Alcohol and Drug Abuse Patient Records regulations: The Federal rules restrict any use of the information to criminally investigate or prosecute any alcohol or drug abuse patient.[facility] CenterIn the event this information is protected by the Federal Confidentiality of Alcohol and Drug Abuse Patient Records regulations: The Federal rules restrict any use of the information to criminally investigate or prosecute any alcohol or drug abuse patient.[facility] CenterIn the event this information is protected by the Federal Confidentiality of Alcohol and Drug Abuse Patient Records regulations: The Federal rules restrict any use of the information to criminally investigate or prosecute any alcohol or drug abuse patient.[facility] CenterIn the event this information is protected by the Federal Confidentiality of Alcohol and Drug Abuse Patient Records regulations: The Federal rules restrict any use of the information to criminally investigate or prosecute any alcohol or drug abuse patient.[facility] CenterIn the event this information is protected by the Federal Confidentiality of Alcohol and Drug Abuse Patient Records regulations: The Federal rules restrict any use of the information to criminally investigate or prosecute any alcohol or drug abuse patient.[facility] CenterIn the event this information is protected by the Federal Confidentiality of Alcohol and Drug Abuse Patient Records regulations: The Federal rules restrict any use of the information to criminally investigate or prosecute any alcohol or drug abuse patient.[facility] CenterIn the event this information is protected by the Federal Confidentiality of Alcohol and Drug Abuse Patient Records regulations: The Federal rules restrict any use of the information to criminally investigate or prosecute any alcohol or drug abuse patient.[facility] CenterIn the event this information is protected by the Federal Confidentiality of Alcohol and Drug Abuse Patient Records regulations: The Federal rules restrict any use of the information to criminally investigate or prosecute any alcohol or drug abuse patient.[facility] CenterIn the event this information is protected by the Federal Confidentiality of Alcohol and Drug Abuse Patient Records regulations: The Federal rules restrict any use of the information to criminally investigate or prosecute any alcohol or drug abuse patient.[facility] CenterIn the event this information is protected by the Federal Confidentiality of Alcohol and Drug Abuse Patient Records regulations: The Federal rules restrict any use of the information to criminally investigate or prosecute any alcohol or drug abuse patient.[facility] CenterIn the event this information is protected by the Federal Confidentiality of Alcohol and Drug Abuse Patient Records regulations: The Federal rules restrict any use of the information to criminally investigate or prosecute any alcohol or drug abuse patient.[facility] CenterIn the event this information is protected by the Federal Confidentiality of Alcohol and Drug Abuse Patient Records regulations: The Federal rules restrict any use of the information to criminally investigate or prosecute any alcohol or drug abuse patient.[facility] CenterIn the event this information is protected by the Federal Confidentiality of Alcohol and Drug Abuse Patient Records regulations: The Federal rules restrict any use of the information to criminally investigate or prosecute any alcohol or drug abuse patient.[facility] CenterIn the event this information is protected by the Federal Confidentiality of Alcohol and Drug Abuse Patient Records regulations: The Federal rules restrict any use of the information to criminally investigate or prosecute any alcohol or drug abuse patient.[facility] CenterIn the event this information is protected by the Federal Confidentiality of Alcohol and Drug Abuse Patient Records regulations: The Federal rules restrict any use of the information to criminally investigate or prosecute any alcohol or drug abuse patient.[facility] CenterIn the event this information is protected by the Federal Confidentiality of Alcohol and Drug Abuse Patient Records regulations: The Federal rules restrict any use of the information to criminally investigate or prosecute any alcohol or drug abuse patient.[facility] CenterIn the event this information is protected by the Federal Confidentiality of Alcohol and Drug Abuse Patient Records regulations: The Federal rules restrict any use of the information to criminally investigate or prosecute any alcohol or drug abuse patient.[facility] CenterIn the event this information is protected by the Federal Confidentiality of Alcohol and Drug Abuse Patient Records regulations: The Federal rules restrict any use of the information to criminally investigate or prosecute any alcohol or drug abuse patient.[facility] CenterIn the event this information is protected by the Federal Confidentiality of Alcohol and Drug Abuse Patient Records regulations: The Federal rules restrict any use of the information to criminally investigate or prosecute any alcohol or drug abuse patient.[facility] CenterIn the event this information is protected by the Federal Confidentiality of Alcohol and Drug Abuse Patient Records regulations: The Federal rules restrict any use of the information to criminally investigate or prosecute any alcohol or drug abuse patient.[facility] CenterIn the event this information is protected by the Federal Confidentiality of Alcohol and Drug Abuse Patient Records regulations: The Federal rules restrict any use of the information to criminally investigate or prosecute any alcohol or drug abuse patient.[facility] CenterIn the event this information is protected by the Federal Confidentiality of Alcohol and Drug Abuse Patient Records regulations: The Federal rules restrict any use of the information to criminally investigate or prosecute any alcohol or drug abuse patient.[facility] CenterIn the event this information is protected by the Federal Confidentiality of Alcohol and Drug Abuse Patient Records regulations: The Federal rules restrict any use of the information to criminally investigate or prosecute any alcohol or drug abuse patient.[facility] CenterIn the event this information is protected by the Federal Confidentiality of Alcohol and Drug Abuse Patient Records regulations: The Federal rules restrict any use of the information to criminally investigate or prosecute any alcohol or drug abuse patient.[facility] CenterIn the event this information is protected by the Federal Confidentiality of Alcohol and Drug Abuse Patient Records regulations: The Federal rules restrict any use of the information to criminally investigate or prosecute any alcohol or drug abuse patient.[facility] CenterIn the event this information is protected by the Federal Confidentiality of Alcohol and Drug Abuse Patient Records regulations: The Federal rules restrict any use of the information to criminally investigate or prosecute any alcohol or drug abuse patient.[facility] CenterIn the event this information is protected by the Federal Confidentiality of Alcohol and Drug Abuse Patient Records regulations: The Federal rules restrict any use of the information to criminally investigate or prosecute any alcohol or drug abuse patient.[facility] CenterIn the event this information is protected by the Federal Confidentiality of Alcohol and Drug Abuse Patient Records regulations: The Federal rules restrict any use of the information to criminally investigate or prosecute any alcohol or drug abuse patient.[facility] CenterIn the event this information is protected by the Federal Confidentiality of Alcohol and Drug Abuse Patient Records regulations: The Federal rules restrict any use of the information to criminally investigate or prosecute any alcohol or drug abuse patient.[facility] CenterIn the event this information is protected by the Federal Confidentiality of Alcohol and Drug Abuse Patient Records regulations: The Federal rules restrict any use of the information to criminally investigate or prosecute any alcohol or drug abuse patient.[facility] CenterIn the event this information is protected by the Federal Confidentiality of Alcohol and Drug Abuse Patient Records regulations: The Federal rules restrict any use of the information to criminally investigate or prosecute any alcohol or drug abuse patient.[facility] CenterIn the event this information is protected by the Federal Confidentiality of Alcohol and Drug Abuse Patient Records regulations: The Federal rules restrict any use of the information to criminally investigate or prosecute any alcohol or drug abuse patient.[facility] CenterIn the event this information is protected by the Federal Confidentiality of Alcohol and Drug Abuse Patient Records regulations: The Federal rules restrict any use of the information to criminally investigate or prosecute any alcohol or drug abuse patient.[facility] CenterIn the event this information is protected by the Federal Confidentiality of Alcohol and Drug Abuse Patient Records regulations: The Federal rules restrict any use of the information to criminally investigate or prosecute any alcohol or drug abuse patient.[facility] CenterIn the event this information is protected by the Federal Confidentiality of Alcohol and Drug Abuse Patient Records regulations: The Federal rules restrict any use of the information to criminally investigate or prosecute any alcohol or drug abuse patient.[facility] CenterIn the event this information is protected by the Federal Confidentiality of Alcohol and Drug Abuse Patient Records regulations: The Federal rules restrict any use of the information to criminally investigate or prosecute any alcohol or drug abuse patient.[facility] CenterIn the event this information is protected by the Federal Confidentiality of Alcohol and Drug Abuse Patient Records regulations: The Federal rules restrict any use of the information to criminally investigate or prosecute any alcohol or drug abuse patient.[facility] CenterIn the event this information is protected by the Federal Confidentiality of Alcohol and Drug Abuse Patient Records regulations: The Federal rules restrict any use of the information to criminally investigate or prosecute any alcohol or drug abuse patient.[facility] CenterIn the event this information is protected by the Federal Confidentiality of Alcohol and Drug Abuse Patient Records regulations: The Federal rules restrict any use of the information to criminally investigate or prosecute any alcohol or drug abuse patient.[facility] CenterIn the event this information is protected by the Federal Confidentiality of Alcohol and Drug Abuse Patient Records regulations: The Federal rules restrict any use of the information to criminally investigate or prosecute any alcohol or drug abuse patient.[facility] CenterIn the event this information is protected by the Federal Confidentiality of Alcohol and Drug Abuse Patient Records regulations: The Federal rules restrict any use of the information to criminally investigate or prosecute any alcohol or drug abuse patient.[facility] CenterIn the event this information is protected by the Federal Confidentiality of Alcohol and Drug Abuse Patient Records regulations: The Federal rules restrict any use of the information to criminally investigate or prosecute any alcohol or drug abuse patient.[facility] CenterIn the event this information is protected by the Federal Confidentiality of Alcohol and Drug Abuse Patient Records regulations: The Federal rules restrict any use of the information to criminally investigate or prosecute any alcohol or drug abuse patient.[facility] CenterIn the event this information is protected by the Federal Confidentiality of Alcohol and Drug Abuse Patient Records regulations: The Federal rules restrict any use of the information to criminally investigate or prosecute any alcohol or drug abuse patient.[facility] CenterIn the event this information is protected by the Federal Confidentiality of Alcohol and Drug Abuse Patient Records regulations: The Federal rules restrict any use of the information to criminally investigate or prosecute any alcohol or drug abuse patient.[facility] CenterIn the event this information is protected by the Federal Confidentiality of Alcohol and Drug Abuse Patient Records regulations: The Federal rules restrict any use of the information to criminally investigate or prosecute any alcohol or drug abuse patient.[facility] CenterIn the event this information is protected by the Federal Confidentiality of Alcohol and Drug Abuse Patient Records regulations: The Federal rules restrict any use of the information to criminally investigate or prosecute any alcohol or drug abuse patient.[facility] CenterIn the event this information is protected by the Federal Confidentiality of Alcohol and Drug Abuse Patient Records regulations: The Federal rules restrict any use of the information to criminally investigate or prosecute any alcohol or drug abuse patient.[facility] CenterIn the event this information is protected by the Federal Confidentiality of Alcohol and Drug Abuse Patient Records regulations: The Federal rules restrict any use of the information to criminally investigate or prosecute any alcohol or drug abuse patient.[facility] Reason for Visit (unrecogniz ed section and content) Reason Comments Pain (LT) hand pain rated 5, swelling reported donating plasma x1 day Reason Comments Results Reason Comments sinus and congestion Sinus and congestio n, left ear feels clogged x 2 weeks Reason Comments Conjunctivitis Bilateral x1 day Reason Comments Sore Throat X1 week Reason Comments Establish Care Reason Comments bh consult Reason Comments Depression Reason Comments Cough Cough, congestion, f ever, AKERS and sinus x 8 days Reason Comments New Patient Evaluation Reason Comments Breast Problem Reason Comments No Show Specialty Diagnoses / Procedures Referred By Ciriloac t Referred To Contact Psychiatry / ADULT PSYCHIATRY Diagnoses follow up Procedures VIDEO PSYC/PSYL EST Maxine Ellis, CERTIFIED DIETARY MANAGER.MILL RECORDER [address] [place] [address] Maxine Ellis, CERTIFIED DIETARY MANAGER.MILL RECORDER [address] [place] [address] Referral ID Status Reason Start Date Expiration Date V isits Requested Visits Authorized [id number] New Request 06/28/2024 09/26/2024 1 1 Reason Comments Appointment Reason Comments Follow Up Specialty Diagnoses / Procedures Referred By Contac t Referred To Contact Psychiatry / ADULT PSYCHIATRY Diagnoses Provider Ordered Follow Up Procedures EST PSYC ADULT Maxine Ellis, CERTIFIED DIETARY MANAGER.MILL RECORDER [address] [place] [address] Maxine Ellis, CERTIFIED DIETARY MANAGER.MILL RECORDER [address] [place] [address] Referral ID Status Reason Start Date Expiration Date V isits Requested Visits Authorized [id number] New Request 08/14/2024 11/12/2024 1 1 Reason Comments Nasal Congestion drainage, cough, ups et stomach x 2 days Specialty Diagnoses / Procedures Referred By Contac t Referred To Contact Psychiatry / ADULT PSYCHIATRY Diagnoses 6 week follow up Procedures VIDEO PSYC/PSYL EST Maxine Ellis, CERTIFIED DIETARY MANAGER.MILL RECORDER [address] [place] [address] Phone: tel: fax: Maxine Ellis, CERTIFIED DIETARY MANAGER.MILL RECORDER [address] [place] [address] Phone: tel: fax: Referral ID Status Reason Start Date Expiration Date V isits Requested Visits Authorized [id number] New Request 09/25/2024 12/24/2024 1 1 Reason Comments Patient Question Reason Comments Imm/Inj Reason Comments Urinary Frequency urgency and low back pain, requesting hcg- Specialty Diagnoses / Procedures Referred By Contac t Referred To Contact Psychiatry / ADULT PSYCHIATRY Diagnoses 4-6 week follow up Procedures VIDEO PSYC/PSYL EST Maxine Ellis, CERTIFIED DIETARY MANAGER.MILL RECORDER [address] [place] [address] Phone: tel: fax: Maxine Ellis, CERTIFIED DIETARY MANAGER.MILL RECORDER [address] [place] [address] Phone: tel: fax: Referral ID Status Reason Start Date Expiration Date V isits Requested Visits Authorized [id number] New Request 11/22/2024 02/20/2025 1 1 Reason Comments Headache Another that started this AM. 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 Sharp pains in the back of head and neck. Dizziness Feels dizzy 07/02 Specialty Diagnoses / Procedures Referred By Magrarita estes Referred To Contact Neurology Diagnoses Migraine without status migrainosus, not intractable, unspecified migraine type Unsteadiness on feet Numbness and tingling Demyelinating disease of central nervous system (HCC) Procedures OFFICE/OUTPATIENT NEW HIGH MDM 60 MINUTES Issac Fernández MD [address] [place] [address] Phone: tel: fax: Referral ID Status Reason Start Date Expiration Date V isits Requested Visits Authorized [id number] Closed PCP Requested Referral 01/25/2025 01/25/2026 1 1 Reason Comments right knee lump right leg and right arm tingling Reason Comments Lump Noticed lump on inne r left backside of right knee X 2-3 ago. It's elongated in shape and has gotten bigger since first noticing. Denies pain, redness or warmth to touch. Complains of tightness around her right alcantara. Refers to feeling like someone is squeezing her leg. Shortness of Breath Ongoing. Blood Pressure Admits to low blood pressure. Was told to follow up after echo results. Reason Comments Obsessive-Compulsive Disorder Specialty Diagnoses / Procedures Referred By Margarita estes Referred To Contact Psychiatry / ADULT PSYCHIATRY Diagnoses side effects to medication Procedures VIDEO PSYC/PSYL EST Maxine Ellis, CERTIFIED DIETARY MANAGER.[employer]ORDER [address] [place] [address] Phone: tel: fax: Maxine Ellis, CERTIFIED DIETARY MANAGER.MI[employer]ORDER [address] [place] [address] Phone: tel: fax: Referral ID Status Reason Start Date Expiration Date V isits Requested Visits Authorized [id number] New Request 03/21/2025 2025 1 1 Reason Comments Dizziness Sob, nasal congestio n, green mucus, sinus pressure x 5 days Specialty Diagnoses / Procedures Referred By Margarita estes Referred To Contact Psychiatry / ADULT PSYCHIATRY Diagnoses med check Procedures EST PSYC ADULT Maxine Ellis, CERTIFIED DIETARY MANAGER.MILL RECORDER [address] [place] [address] Phone: tel: fax: Maxine Ellis, CERTIFIED DIETARY MANAGER.MILL RECORDER [address] [place] [address] Phone: tel: fax: Referral ID Status Reason Start Date Expiration Date V isits Requested Visits Authorized [id number] New Request 03/06/2025 06/04/2025 1 1 Care Teams (unrecognized sec tion and content) Sample Tester Grinder Relationship Specialty Start Date End Date Aden Dallas MD [address] [place] [address] PCP - General Pediatrics 05/08/10 Sample Tester Grinder Relationship Specialty Start Date End Date Aden Dallas MD [address] [place] [address] PCP - General Pediatrics 05/08/10 Team Status: Active Member Role Status Dates No Primary Care Physician Primary Care Provider Active Team Status: Inactive Member Role Status Dates Dr. Dennis Recinos MD Primary Care Provider, Referring Provider Active Dr. Toshia Mendes DO Attending Provider Activ e Team Status: Inactive Member Role Status Dates Dr. Dennis Recinos MD Primary Care Provider, Referring Provider Active Dr. Deborah Ochoa MD Attending Provider Active Team Status: Inactive Member Role Status Dates Dr. Dennis Recinos MD Referring Provider Active Monisha Vera SANDING MACHINE BUFFER, SANDING MACHINE BUFFER-C Attending Provider Active No Primary Care Physician Primary Care Provider Active Team Status: Inactive Member Role Status Dates No Primary Care Physician Primary Care Provider, Refer ring Provider Active Monisha Vera SANDING MACHINE BUFFER, SANDING MACHINE BUFFER-C Attending Provider Active Team Status: Inactive Member Role Status Dates Dr. Dennis Recinos MD Primary Care Provider Active Ed Physician Provider Attending Provider, Emergency Pr ovider Active Team Status: Inactive Member Role Status Dates Dr. Dennis Recinos MD Primary Care Provider Active Dr. Toshia Mendse DO Attending Provider, Refe rring Provider Active Team Status: Inactive Member Role Status Dates Dr. Mike Lundy DO Attending Provider, Emergency Provider Active No Primary Care Physician Primary Care Provider Active Team Status: Inactive Member Role Status Dates No Primary Care Physician Primary Care Provider Active Monisha Vera SANDING MACHINE BUFFER, SANDING MACHINE BUFFER-C Attending Provider Active Team Status: Active Member Role Status Dates No Primary Care Physician Primary Care Provider Active Dr. Leslie Serrano MD Attending Provider Active Monisha Vera SANDING MACHINE BUFFER, SANDING MACHINE BUFFER-C Referring Provider Active Team Status: Inactive Member Role Status Dates No Primary Care Physician Primary Care Provider, Refer ring Provider Active Dr. Deborah Ochoa MD Attending Provider Active Team Status: Active Member Role Status Dates No Primary Care Physician Primary Care Provider Active Lu Dubois Attending Provider Active Team Status: Inactive Member Role Status Dates No Primary Care Physician Primary Care Provider, Refer ring Provider Active Dr. Jordan Medellin MD Attending Provider Active Team Status: Inactive Member Role Status Dates No Primary Care Physician Primary Care Provider Active Dr. Jordan Medellin MD Attending Provider Active Team Status: Inactive Member Role Status Dates No Primary Care Physician Primary Care Provider Active Monisha Vera SANDING MACHINE BUFFER, SANDING MACHINE BUFFER-C Attending Provider, Referring Provider Active Team Status: Inactive Member Role Status Dates No Primary Care Physician Primary Care Provider, Refer ring Provider Active Dr. Toshia Mendes DO Attending Provider Activ e Team Status: Inactive Member Role Status Dates No Primary Care Physician Primary Care Provider, Refer ring Provider Active Lu Mcclain CNM Attending Provider Active Team Status: Inactive Member Role Status Dates No Primary Care Physician Primary Care Provider, Refer ring Provider Active Kate Guy CNM Attending Provider Active Team Status: Active Member Role Status Dates No Primary Care Physician Primary Care Provider Active Dr. Toshia Mendes DO Attending Provider, Referring Provider, Other Provider Active Team Status: Inactive Member Role Status Dates No Primary Care Physician Primary Care Provider, Refer ring Provider Active Dr. Alfredo Soler MD Attending Provider Active Team Status: Active Member Role Status Dates No Primary Care Physician Primary Care Provider Active Dr. Toshia Mendes DO Referring Provider Activ daija Guy CNM Admit Provider, At tending Provider, Other Provider Active Team Status: Active Member Role Status Dates No Primary Care Physician Primary Care Provider Active Dr. Toshia Mendes DO Referring Provider Activ e Kate Guy CNM Admit Provider, Other Provider A ctive Lu Mcclain CNM Attending Provider Active Team Status: Active Member Role Status Dates No Primary Care Physician Primary Care Provider Active Dr. Toshia Mendes DO Admit Prov ider, Attending Provider, Referring Provider, Other Provider Active Team Status: Inactive Member Role Status Dates No Primary Care Physician Primary Care Provider Active Dr. Toshia Mendes DO Attending Provider, Refe rring Provider Active Team Status: Inactive Member Role Status Dates No Primary Care Physician Primary Care Provider Active Dr. Deborah Ochoa MD Attending Provider Active Team Status: Active Member Role Status Dates No Primary Care Physician Primary Care Provider Active Dr. Toshia Mendes DO Admit Prov ider, Attending Provider, Referring Provider Active Team Status: Active Member Role Status Dates No Primary Care Physician Primary Care Provider Active Dr. Toshia Mendes DO Admit Prov ider, Referring Provider, Other Provider Active Dr. Deborah Ochoa MD Attending Provider Active Team Status: Inactive Member Role Status Dates No Primary Care Physician Primary Care Provider Active Dr. Toshia Mendes DO Admit Prov ider, Attending Provider, Referring Provider Active Team Status: Inactive Member Role Status Dates No Primary Care Physician Primary Care Provider, Refer ring Provider Active Lanie Antunez SANDING MACHINE BUFFER, SANDING MACHINE BUFFER-C Attending Provider Active Sample Tester Grinder Relationship Specialty Start Date End Date Aamir Mckeon DO [address] [place] [address] PCP - General Family Medicine 05/25/23 Team Status: Inactive Member Role Status Dates No Primary Care Physician Primary Care Provider Active Kate Guy CNM Attending Provider, Referring Pr ovider Active Sample Tester Grinder Relationship Specialty Start Date End Date Issac Fernández MD [address] [place], [place] [address] PCP - General Family Medicine 05/14/24 Sample Tester Grinder Relationship Specialty Start Date End Date Issac Fernández MD [address] [place], [place] [address] PCP - General Family Medicine 05/14/24 Sample Tester Grinder Relationship Specialty Start Date End Date Issac Fernández MD [address] [facility] [place] [address] PCP - General Family Medicine 05/14/24 Sample Tester Grinder Relationship Specialty Start Date End Date Issac Fernández MD [address] [facility] [place] [address] PCP - General Family Medicine 05/14/24 Podlogar, Veronica, CERTIFIED DIETARY MANAGER.MILL RECORDER [address] [facility] [place] [address] Cnc Laser Operator Family Medicine 06/23/24 Sample Tester Grinder Relationship Specialty Start Date End Date Issac Fernández MD [address] [facility] [place] [address] PCP - General Family Medicine 05/14/24 Podlogar, Veronica, CERTIFIED DIETARY MANAGER.MILL RECORDER [address] [facility] [place] [address] Cnc Laser Operator Family Medicine 06/23/24 Sample Tester Grinder Relationship Specialty Start Date End Date Issac Fernández MD [address] [facility] [place] [address] PCP - General Family Medicine 05/14/24 Podlogar, Veronica, CERTIFIED DIETARY MANAGER.MILL RECORDER [address] [facility] [place] [address] Cnc Laser Operator Family Medicine 06/23/24 Sample Tester Grinder Relationship Specialty Start Date End Date Issac Fernández MD [address] [facility] [place] [address] PCP - General Family Medicine 05/14/24 Podlogar, Veronica, CERTIFIED DIETARY MANAGER.MILL RECORDER [address] [facility] [place] [address] Cnc Laser Operator Family Medicine 06/23/24 Sample Tester Grinder Relationship Specialty Start Date End Date Issac Fernández MD [address] [facility] [place] [address] PCP - General Family Medicine 05/14/24 PodlogarVeronica APRN.MILL RECORDER [address] [facility] [place] [address] Cnc Laser Operator Family Medicine 06/23/24 Marychuy Calvin APRN.MILL RECORDER [address] [place] [address] [facility] 10/08/24 Sample Tester Grinder Relationship Specialty Start Date End Date Issac Fernández MD [address] [facility] [place] [address] PCP - General Family Medicine 05/14/24 PodlogarVeronica APRN.MILL RECORDER [address] [facility] [place] [address] Cnc Laser Operator Family Medicine 06/23/24 Marychuy Calvin APRN.MILL RECORDER [address] [place] [address] Cnc Laser Operator Family Medicine 10/08/24 Sample Tester Grinder Relationship Specialty Start Date End Date Issac Fernández MD [address] [facility] [place] [address] PCP - General Family Medicine 05/14/24 PodlogarVeronica APRN.MILL RECORDER [address] [place] [address] Cnc Laser Operator Family Medicine 06/23/24 Marychuy Calvin APRN.MILL RECORDER [address] [place] [address] Cnc Laser Operator Family Medicine 10/08/24 Sample Tester Grinder Relationship Specialty Start Date End Date Issac Fernández MD [address] [place] [address] PCP - General Family Medicine 05/14/24 PodlogarVeronica APRN.MILL RECORDER [address] [place] [address] Cnc Laser Operator Family Medicine 06/23/24 Marychuy Calvin APRN.MILL RECORDER [address] [place] [address] Cnc Laser Operator Family Medicine 10/08/24 Sample Tester Grinder Relationship Specialty Start Date End Date Issac Fernández MD [address] [place] [address] PCP - General Family Medicine 05/14/24 PodlogarVeronica CERTIFIED DIETARY MANAGER.MILL RECORDER [address] [place] [address] Cnc Laser Operator Family Medicine 06/23/24 Maryhcuy Calvin APRN.MILL RECORDER [address] [place] [address] Cnc Laser Operator Family Medicine 10/08/24 Sample Tester Grinder Relationship Specialty Start Date End Date Issac Fernández MD [address] [place] [address] PCP - General Family Medicine 05/14/24 PodlogarVeronica APRN.MILL RECORDER [address] [place] [address] Cnc Laser Operator Family Medicine 06/23/24 Marychuy Calvin APRN.MILL RECORDER [address] [place] [address] [facility] 09/28/24 10/07/24 Marychuy Calvin APRN.MILL RECORDER [address] [place] [address] [facility] 10/[facility]/24 Sample Tester Grinder Relationship Specialty Start Date End Date Issac Fernández MD [address] [place] [address] PCP - General Family Medicine 05/14/24 PodlogarVeronica APRN.MILL RECORDER [address] [place] [address] [facility] Medicine 06/23/24 Marychuy Calvin CERTIFIED DIETARY MANAGER.MILL RECORDER [address] [place] [address] [facility] 10/08/24 Sample Tester Grinder Relationship Specialty Start Date End Date Issac Fernández MD [address] [place] [address] PCP - General Family Medicine 05/14/24 PodlogarVeronica APRN.MILL RECORDER [address] [place] [address] [facility] 06/23/24 Sample Tester Grinder Relationship Specialty Start Date End Date Issac Fernández MD [address] [facility] [place] [address] PCP - General Family Medicine 05/14/24 Podlogar, Veronica CERTIFIED DIETARY MANAGER.MILL RECORDER [address] [facility] [place] [address] [employer]nc Laser Operator Family Medicine 06/23/24 Marychuy Calvin APRN.MILL RECORDER [address] [place] [address] Formerly [facility] 12/27/24 Sample Tester Grinder Relationship Specialty Start Date End Date Issac Fernández MD [address] [facility] [place] [address] PCP - General Family Medicine 05/14/24 Podlogar, Veronica, CERTIFIED DIETARY MANAGER.MILL RECORDER [address] [facility] [place] [address] [facility] Medicine 06/23/24 Marychuy Calvin CERTIFIED DIETARY MANAGER.MILL RECORDER [address] [place] [address] Formerly [facility] 12/27/24 Sample Tester Grinder Relationship Specialty Start Date End Date Issac Fernández MD [address] [facility] [place] [address] PCP - General Family Medicine 05/14/24 Podlogar, Veronica, CERTIFIED DIETARY MANAGER.MILL RECORDER [address] [facility] [place] [address] [employer]nc Laser Operator Family Medicine 06/23/24 Marychuy Calvin CERTIFIED DIETARY MANAGER.MILL RECORDER [address] [place] [address] [facility] Family [facility] 10/08/24 12/02/24 Marychuy Calvin APRN.MILL RECORDER [address] [place] [address] [facility] 12/27/24 Sample Tester Grinder Relationship Specialty Start Date End Date Issac Fernández MD [address] [place] [address] PCP - General Family Medicine 05/14/24 PodlogarVeronica CERTIFIED DIETARY MANAGER.MILL RECORDER [address] [place] [address] [employer] Laser Operator Family Medicine 06/23/24 Marychuy Calvin, CERTIFIED DIETARY MANAGER.MILL RECORDER [address] [place] [address] [facility] 12/27/24 Sample Tester Grinder Relationship Specialty Start Date End Date Issac Fernández MD [address] [place] [address] PCP - General Family Medicine 05/14/24 PodlogarVeronica, CERTIFIED DIETARY MANAGER.MILL RECORDER [address] [place] [address] [facility]nc Laser Operator Family Medicine 06/23/24 Marychuy Calvin APRN.MILL RECORDER [address] [place] [address] [facility] 12/27/24 Sample Tester Grinder Relationship Specialty Start Date End Date Issac Fernández MD [address] [facility] [place] [address] PCP - General Family Medicine 05/14/24 PodlogarVeronica APRN.MILL RECORDER [address] [place] [address] [employer]nc Laser Operator Family Medicine 06/23/24 Marychuy Calvin APRN.MILL RECORDER [address] [place] [address] [facility] 12/27/24 Sample Tester Grinder Relationship Specialty Start Date End Date Issac Fernández MD [address] [place] [address] PCP - General Family Medicine 05/14/24 PodlogarVeronica APRN.MILL RECORDER [address] [place] [address] [employer] Laser Operator Family Medicine 06/23/24 Marychuy Calvin APRN.MILL RECORDER [address] [place] [address] [facility] 12/27/24 Sample Tester Grinder Relationship Specialty Start Date End Date Issac Fernández MD [address] [place] [address] PCP - General Family Medicine 05/14/24 MarilogarVeronica APRN.MILL RECORDER [address] [place] [address] Cnc Laser Operator Family Medicine 06/23/24 Marychuy Calvin APRN.MILL RECORDER [address] [place], [place] [id number] [facility] Sample Tester Grinder Relationship Specialty Start Date End Date Issac Fernández MD [address] [facility] [place] [address] PCP - General Family Medicine 05/14/24 Podlogar, LAVELL Martin.MILL RECORDER [address] [place] [address] [facility] 06/23/24 Marychuy Calvin APRN.MILL RECORDER [address] [place] [address] Formerly [facility] 12/27/24 Sample Tester Grinder Relationship Specialty Start Date End Date Issac Fernández MD [address] [place] [address] PCP - General Family Medicine 05/14/24 Podlogar, LAVELL Martin.MILL RECORDER [address] [place] [address] [facility] Medicine 06/23/24 Marychuy Calvin APRN.MILL RECORDER [address] [place] [address] Formerly [facility] 12/27/24 Sample Tester Grinder Relationship Specialty Start Date End Date Issac Fernández MD [address] [place], [place] [address] [phone] PCP - General Family Medicine 05/14/24 Podlogar, Veronica, CERTIFIED DIETARY MANAGER.MILL RECORDER [address] [place] [address] Formerly [facility] 06/23/24 Marychuy Calvin APRN.MILL RECORDER [address] [place] [address] [facility]ly [facility] 12/27/24 Sample Tester Grinder Relationship Specialty Start Date End Date Issac Fernández MD [address] [place] [address] PCP - General Family Medicine 05/14/24 PodlogarVeronica APRN.MILL RECORDER [address] [place] [address] [facility]ly [facility] 06/23/24 Marychuy Calvin APRN.MILL RECORDER [address] [place] [address] [facility]ly [facility] 12/27/24 Sample Tester Grinder Relationship Specialty Start Date End Date Issac Fernández MD [address] [place] [address] PCP - General Family Medicine 05/14/24 PodlogarVeronica APRN.MILL RECORDER [address] [place] [address] [facility] Medicine 06/23/24 Marychuy Calvin CERTIFIED DIETARY MANAGER.MILL RECORDER [address] [place] [address] Formerly [facility] 12/27/24 Sample Tester Grinder Relationship Specialty Start Date End Date Issac Fernández MD [address] [place] [address] PCP - General Family Medicine 05/14/24 Podlogar, LAVELL Martin.MILL RECORDER [address] [place] [address] [facility] Family Medicine 06/23/24 Marychuy Calvin APRN.MILL RECORDER [address] [place], [place] [address] [facility] 12/27/24 Sample Tester Grinder Relationship Specialty Start Date End Date Issac Fernández MD [address] [place] [address] PCP - General Family Medicine 05/14/24 PodlogarVeronica APRN.MILL RECORDER [address] [place] [address] [facility] 06/23/24 Marychuy Calvin APRN.MILL RECORDER [address] [place] [address] Formerly [facility] 12/27/24 Sample Tester Grinder Relationship Specialty Start Date End Date Issac Fernández MD [address] [place] [address] PCP - General Family Medicine 05/14/24 PodlogarVeronica APRN.MILL RECORDER [address] [place] [address] [facility] Family Medicine 06/23/24 Marychuy Calvin APRN.MILL RECORDER [address] [place] [address] [facility] Family Medicine 12/27/24 Goals (unrecognized section and content) Goals may be documented in a n alternate sectionGoals may be documented in an alternate sectionGoals may be documented in an alternate sectionGoals may be documented in an alternate sectionGoals may be documented in an alternate sectionGoals may be documented in an alternate sectionGoals may be documented in an alternate sectionGoals may be documented in an alternate section INFORMATION SOURCE (unrecogn ized section and content) DATE CREATED AUTHOR 09/23/2023 [facility] DATE CREATED AUTHOR AUTHOR'S ORGANIZ ATION 10/22/2024 [facility] DATE CREATED AUTHOR AUTHOR'S ORGANIZ ATION 04/03/2025 [facility] DATE CREATED AUTHOR AUTHOR'S ORGANIZ ATION 04/04/2025 [facility] FOR RECORDS PERTAINING TO PATIENTS WHO ARE [...] BE BASED ON THE PRIMARY CLINICAL RECORDS. [facility] [employer] [facility]. provides no warranty or guarantee of the accuracy or completeness of information in this document.
[2025-04-05 21:00] VITALS: BP 127/96; PULSE 72; PULSE 73; RESP 16; TEMP 36.9; O2SAT 100; O2SAT 99
--- NOTE | 2025-04-06 00:59 | EDS_ITS ---
HPI History of Present Illness Chief Complaint: Palpitations Narrative Narrative: Patient is a 19-year-old female presenting to the emergency department for intermittent palpitations over the past year that have become more frequent over the past few weeks as well as a headache that she has had for 5 days. 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 She states that today it was in the 130s to 140s. She states that it bounces all around. She reports when she has the episode she feels lightheaded as well as short of breath and can feel her heart pounding. States this is happened before over the past year and she has worn a Holter monitor with no irregular heart rhythms noted. Patient denies any chest pain. She is also reporting a headache that started about 5 days ago. It started gradually. Did not reach maximal onset within 1 second. She denies any head trauma. She states she does have a history of migraines and this headache is not as bad as her normal headaches but they usually do not last this long. States she has been taking Tylenol and Motrin for symptomatic control. She reports its bandlike around her head. Denies any vision changes or speech deficit. Denies any focal numbness or weakness. Denies abdominal pain, nausea, vomiting, diarrhea. Denies any lower extremity edema. Denies history of PE or DVT. Denies recent surgeries, hospitalizations or travel. She is not on any OCPs. [facility] Medical History Navel cellulitis Former smoker Hx of gestational diabetes in prior , currently Vaginal delivery hemorrhage depression Gestational diabetes Panic disorder Generalized anxiety disorder Bipolar 2 disorder Seasonal allergies Contraception management Anemia due to blood loss, acute hemorrhage macrosomia GBS (group B Streptococcus carrier), +RV culture, currently Gestational diabetes Anxiety Palpitations Supervision of high risk , antepartum Asthma Depression Home Medications ?Medication ?Instructions ?Recorded ?Last Taken ?Type amitriptyline 10 mg tablet 10 mg PO QHS 02/08/25 Unkno wn History fluticasone propionate 50 1 spray intranasal BID #16 g anyi 02/08/25 Unknown Rx mcg/actuation nasal spray,suspension meclizine 25 mg tablet 25 mg PO TID PRN dizziness # 20 tabs 02/08/25 Unknown Rx loratadine 10 mg tablet (Claritin) 10 mg PO QDAY 04/03 Unknown History magnesium gluconate 12.5 mg 240 mg PO ONCE 04/03/25 Un known History magnesium (250 mg) tablet mecobalamin (vitamin B12) 1,000 1,000 mcg PO QDAY 03/18 02/08 Unknown History mcg chewable tablet mupirocin 2 % topical ointment 1 applic topical BID #2 2 grams 04/03/25 Unknown Rx riboflavin (vitamin B2) 400 mg 400 mg PO QDAY 04/03/25 Unknown History tablet Allergy/AdvReac Type Severity Reaction Status Date / Time citalopram (From Celexa) Allergy Other Verified 04/05/25 17:38 escitalopram (From Lexapro) Allergy Other Verified 04/05/25 17:38 Family History Grandmother Cervical cancer, Onset Age: 40 maternal Family history of recurrent miscarriage maternal- 2 miscarriages Grandfather Myocardial infarction Father Heart disease Mother Family history of recurrent miscarriage 2 miscarriages Aunt Family history of recurrent miscarriage Maternal- 2 miscarriages Social History adopted: No household members: significant other and children housing: house number of children: 1 current occupational status: employed current occupation: Will be starting at [employer] current occupational exposures/hazards: No pets and animals: No (not managing litterbox while ) history of recent travel: No ([place]) sexually active: Yes Smoking Status: Former smoker Electronic Cigarette Use: with nicotine how long ago did patient quit smoking: Quit 04/08 alcohol intake: never substance use type: does not use well-balanced diet: daily or most days caffeine: No (ocassional) eating out: 1-3 times/week during the past year weight has: increased > 10 lbs what type of physical activity do you participate in: none jose/anabaptism: Tenriism seatbelt use: always do you feel safe at home: Yes additional social history: [employer]derr[employer] ROS ROS ED ROS Narrative see HPI EXAM Physical Exam Narrative Exam Narrative: Vital signs: Reviewed General: Alert and orientedx3. No acute distress HEENT: Head is normocephalic and atraumatic, sinuses nontender, pupils equal round and reactive. Nares are patent. Oropharynx and throat exams normal. Neck: Supple without lymphadenopathy nontender. No nuchal rigidity. Normal full ROM. Cardiovascular: Regular rate and rhythm, no murmurs. No rubs or gallops. Normal S1 and S2 Respiratory: Clear to auscultation bilaterally. No wheezes, rales, rhonchi Abdominal: Soft and nontender. Normal bowel sounds. No guarding or rebound. Nonsurgical abdomen Extremities: No edema. No tenderness. No bruising. Normal range of motion. Normal sensation. Skin: No rash or redness. Neurological: Cranial nerves II through XII are grossly intact. Normal strength and sensation. Normal cerebellar function The rest of the physical exam is unremarkable Const Vital Signs: 04/05/25 17:37 04/05/25 19:26 04/05/25 19:26 Temperature 98.4 F Temperature Source Oral Pulse Rate 133 H 81 Respiratory Rate 16 15 Respiratory Effort Respiratory Pattern Blood Pressure 138/105 H 143/93 H Blood Pressure Mean 116 109 Pulse Ox 100 100 Oxygen Delivery Method Room Air Room Air Room Air 04/05/25 19:26 04/05/25 20:00 04/05/25 21:00 Temperature 98.4 F Temperature Source Pulse Rate 72 72 Respiratory Rate 16 16 Respiratory Effort Short of Breath Respiratory Pattern Normal Blood Pressure 137/92 H 127/96 H Blood Pressure Mean 107 106 Pulse Ox 100 100 Oxygen Delivery Method Room Air 04/05/25 21:00 Temperature Temperature Source Pulse Rate 73 Respiratory Rate 16 Respiratory Effort Respiratory Pattern Blood Pressure 127/96 H Blood Pressure Mean 106 Pulse Ox 99 Oxygen Delivery Method Room Air NIHSS NIHSS Initial: 1a Level of Consciousness: 0 1b LOC Questions (Score 2 if aphasic/stupor): 0 1c LOC Commands (Only score 1st attempt): 0 2 Best Gaze (If aphasic, use reflexive mvmts.): 0 3 Visual: 0 4 Facial Palsy: 0 5 Motor Arm Right (UN = amputation/fusion): 0 5 Motor Arm Left: 0 6 Motor Leg Right: 0 6 Motor Leg Left: 0 7 Limb ataxia (Only + if out of proportion): 0 8 Sensory (Aphasia/stupor=0 or 1, coma=2): 0 9 Best Language: 0 10 Dysarthria (mute, coma=2, intubated=UN): 0 11 Extinction and Inattention (only scored if +): 0 Total Score: 0 MDM MDM MDM Narrative Medical decision making narrative: Patient is a 19-year-old female presenting to the emergency department for palpitations as well as a headache. Patient was seen and examined. Vitals are stable. Patient resting in bed comfortably no acute distress. EKG shows normal sinus rhythm with a sinus arrhythmia. No ischemic changes. On my evaluation of the patient she is still in normal sinus rhythm. Will obtain blood work to evaluate for anemia, electrolyte abnormality, thyroid abnormality, PE. Patient is low risk Wells. Cannot be perked out due to initial heart rate, D-dimer ordered and negative. CBC with no leukocytosis and normal hemoglobin. BMP with no significant normalities. Magnesium and TSH within normal limits. Chest x-ray reviewed by myself. No opacity, pneumothorax or widened mediastinum noted. Radiology read with negative findings. Patient had no episodes of palpitations while here. I did note in the patient's initial triage vitals that her heart rate was 133 but no EKG was obtained at this time. I recommended that for her palpitations she follow-up with her primary care doctor for a repeat Holter monitor. For the patients headache, it sounds tension related. No concerning red flag signs on exam or history. Randall SAH rule negative. Reports she has had a MRI of her brain in the past given her migraines and this showed no mass or other noted abnormalities. Given prior imaging that is negative, I do not think there is any indication to obtain CT to rule out new mass. Toradol given. Patient reevaluated, headache is improved. Patient discharged from the Emergency Department. I do not feel that the patient's evaluation reveals any acute reason for admission at this time. I instructed them to either follow-up with their primary care physician or promptly return to the Emergency Department for reevaluation should symptoms worsen or new symptoms develop. I explained what symptoms would indicate the need to return to the emergency department. Shared decision making was used. The patient voiced understanding of the treatment plan and is agreeable with it. Clinical impression: Headache Palpitations Lab Data Labs: Laboratory Results - last 24 hr 04/05/25 04/05/25 17:45 19:26 WBC 6.7 RBC 4.72 Hgb 14.0 Hct 40.1 MCV 85.0 MCH 29.7 MCHC 34.9 RDW Std Deviation 40.4 RDW Coeff of Symone 13.0 Plt Count 213 MPV 10.1 Immature Gran % (Auto) 0.300 Neut % (Auto) 53.0 Lymph % (Auto) 32.8 [place] % (Auto) 4.6 Eos % (Auto) 8.6 H Baso % (Auto) 0.7 Absolute Neuts (auto) 3.6 Absolute Lymphs (auto) 2.21 Nucleated RBC % 0 Differential Comment SCANNED Platelet Estimate ADEQUATE D-Dimer Quant (PE/DVT) 0.46 Sodium 138 Potassium 3.9 Chloride 101 Carbon Dioxide 22.1 Anion Gap 15 BUN 9 Creatinine 0.69 L Estim Creat Clear Calc 126.30 Est GFR (MDRD) Non-Af 127 BUN/Creatinine Ratio 13.2 Glucose 95 Calcium 9.6 Magnesium 2.4 H TSH 0.971 Radiography Diagnostic Testing: Clinical Impression(s) from Imaging Studies Chest X-Ray 04/05/25 19:30 IMPRESSION: No acute cardiopulmonary process. Reading Location: [id number] Discharge Plan Triage Chief Complaint: Palpitations ED Provider: Ilsa Johnson Dx/Rx/DC Orders Clinical Impression: Heart palpitations, Headache Instructions: Migraine Tension Headaches, Understanding Heart Palpitations, Arrhythmias Prescriptions: No Action magnesium gluconate 12.5 mg magne- sium (250 mg) tablet 240 mg PO ONCE loratadine [Claritin] 10 mg tablet 10 mg PO QDAY riboflavin (vitamin B2) 400 mg tablet 400 mg PO QDAY mecobalamin (vitamin B12) 1,000 mcg tablet,chewable 1,000 mcg PO QDAY mupirocin 2 % ointment 1 applic topical BID Qty: 22 0RF Rx Instructions: for 10 days; if no improvement then f/u w/ primary care provider meclizine 25 mg tablet 25 mg PO TID PRN (Reason: dizziness) Qty: 20 0RF fluticasone propionate 50 mcg/actuation spray,suspension 1 spray intranasal BID Qty: 16 0RF Rx Instructions: administer 1 spray into each nostril amitriptyline 10 mg tablet 10 mg PO QHS Primary Care Provider: Veronica Muse NP Referrals: Veronica Muse NP, [employer]RAFT OPERATOR-C [Primary Care Provider, Medical] - 2 Days Activity Restrictions/Additional Instructions: Please follow-up with your primary care doctor soon as possible. I recommend that you have another Holter monitor placed for evaluation of your palpitations. Your evaluation in the Emergency Department did not reveal any acute reason for admission. However, I want to emphasize that you may be early in the course of a disease process or illness even if it is not present. For this reason you should follow-up within 24 hours for reevaluation with either your primary care physician or if necessary back here in the Emergency Department. You should return to the Emergency Department immediately if your symptoms worsen or new symptoms develop. Print Language: [place] Disposition Disposition: Home, Self Care Discharge Date/Time: 04/05/25 21:12
== END 2025-04-05 21:12 | disposition home or self-care (01) ==
PROVIDERS: Emergency Provider Student in an Organized Health Care Education/Training Program; PCP Nurse Practitioner Primary Care; Visit Provider Student in an Organized Health Care Education/Training Program
DX: R00.2 Palpitations (principal); F31.81 Bipolar II disorder; G43.909 Migraine, unspecified, not intractable, without status migrainosus; F41.1 Generalized anxiety disorder; J45.909 Unspecified asthma, uncomplicated; Z79.51 Long term (current) use of inhaled steroids; Z79.899 Other long term (current) drug therapy; Z87.891 Personal history of nicotine dependence
CPT/HCPCS: 71046; 80048; 83735; 84443; 85025; 85379; 93005; 96374; 99284; A4216

== ENCOUNTER 2025-04-07 10:10 | Emergency (ER) | payer OTHER, SELFPAY ==
[2025-04-07 10:12] VITALS: BP 124/94; PULSE 100; RESP 18; TEMP 35.9; O2SAT 100; BMI 27.8
--- NOTE | 2025-04-07 10:27 | EKG12_ITS ---
Test Reason : PALPITATIONS Blood Pressure : */* mmHG Vent. Rate : 94 BPM Atrial Rate : 94 BPM P-R Int : 132 ms QRS Dur : 80 ms QT Int : 356 ms P-R-T Axes : 50 26 44 degrees QTcB Int : 445 ms Normal sinus rhythm Normal ECG Confirmed by ROGER YOUNGER, ISAAC ([id number]), telegraph editor PEDRO DURHAM ([id number]) on 04/08/2025 7:53:57 AM Referred By: AR/ER Confirmed By: ISAAC DURAN MD
--- NOTE | 2025-04-07 10:27 | EDS_ITS ---
HPI History of Present Illness Chief Complaint: Palpitations Narrative Narrative: 19-year-old female past medical history of migraines presents with head pressure and palpitations. She states that she took amitriptyline for 6 days then stopped. She has had head pressure and headache for the last week. States the pressure is in her mastoid areas bilaterally. Over the last 4 to 5 days she has had heart palpitations. Sometimes they are worse with standing. Her heart rate has been as high as 140 to 160 bpm. She states she had a fever of 101 a few days ago but none since. No exacerbating or alleviating factors. She is concerned about the pressure and headaches. [facility] Medical History Navel cellulitis Former smoker Hx of gestational diabetes in prior , currently Vaginal delivery hemorrhage depression Gestational diabetes Panic disorder Generalized anxiety disorder Bipolar 2 disorder Seasonal allergies Contraception management Anemia due to blood loss, acute hemorrhage macrosomia GBS (group B Streptococcus carrier), +RV culture, currently Gestational diabetes Anxiety Palpitations Supervision of high risk , antepartum Asthma Depression Home Medications ?Medication ?Instructions ?Recorded ?Last Taken ?Type amitriptyline 10 mg tablet 10 mg PO QHS 02/08/25 Unkno wn History fluticasone propionate 50 1 spray intranasal BID #16 g anyi 02/08/25 Unknown Rx mcg/actuation nasal spray,suspension meclizine 25 mg tablet 25 mg PO TID PRN dizziness # 20 tabs 02/08/25 Unknown Rx loratadine 10 mg tablet (Claritin) 10 mg PO QDAY 04/03 Unknown History magnesium gluconate 12.5 mg 240 mg PO ONCE 04/03/25 Un known History magnesium (250 mg) tablet mecobalamin (vitamin B12) 1,000 1,000 mcg PO QDAY 03/18 02/08 Unknown History mcg chewable tablet mupirocin 2 % topical ointment 1 applic topical BID #2 2 grams 04/03/25 Unknown Rx riboflavin (vitamin B2) 400 mg 400 mg PO QDAY 04/03/25 Unknown History tablet Allergy/AdvReac Type Severity Reaction Status Date / Time citalopram (From Celexa) Allergy Other Verified 04/07/25 10:12 escitalopram (From Lexapro) Allergy Other Verified 04/07/25 10:12 Family History Grandmother Cervical cancer, Onset Age: 40 maternal Family history of recurrent miscarriage maternal- 2 miscarriages Grandfather Myocardial infarction Father Heart disease Mother Family history of recurrent miscarriage 2 miscarriages Aunt Family history of recurrent miscarriage Maternal- 2 miscarriages Social History adopted: No household members: significant other and children housing: house number of children: 1 current occupational status: employed current occupation: Will be starting at [employer] current occupational exposures/hazards: No pets and animals: No (not managing litterbox while ) history of recent travel: No ([place]) sexually active: Yes Smoking Status: Current every day smoker tobacco type: e-cigarettes Electronic Cigarette Use: with nicotine how long ago did patient quit smoking: Quit 04/08 alcohol intake: never substance use type: does not use well-balanced diet: daily or most days caffeine: No (ocassional) eating out: 1-3 times/week during the past year weight has: increased > 10 lbs what type of physical activity do you participate in: none jose/roman catholic: [employer] seatbelt use: always do you feel safe at home: Yes additional social history: [employer] ROS ROS ED ROS Narrative Review of systems positive for headache, head pressure, palpitations, elevated heart rate as high as 140 260 bpm. Reported fever few days ago, none since. EXAM Physical Exam Narrative Exam Narrative: Afebrile. Vital signs noted. Nontoxic-appearing. Cardiovascular examination reveals regular rate and rhythm. Lungs are clear to auscultation bilaterally. Abdomen is soft nontender without guarding or rebound, positive bowel sounds. Neurological examination nonfocal, nonlateralizing. No pedal edema noted. Const Vital Signs: 04/07/25 10:12 04/07/25 11:01 04/07/25 12:17 Temperature 96.6 F L Temperature Source Temporal Pulse Rate 100 61 Pulse Rate [Lying] 81 Pulse Rate [Sitting (for 1 minute prior to obtaining)] 90 Pulse Rate [Standing (for 1 minute prior to obtaining)] 107 H Respiratory Rate 18 20 H Blood Pressure 124/94 H 94/68 Blood Pressure [Lying] 106/67 Blood Pressure [Sitting (for 1 minute prior to obtaining)] 119/80 Blood Pressure [Standing (for 1 minute prior to obtaining)] 110/80 Blood Pressure Mean 104 76 Blood Pressure Mean [Lying] 80 Blood Pressure Mean [Sitting (for 1 minute prior to obtaining)] 93 Blood Pressure Mean [Standing (for 1 minute prior to obtaining)] 90 Pulse Ox 100 96 Oxygen Delivery Method Room Air Room Air MDM MDM MDM Narrative Medical decision making narrative: The differential diagnosis includes but not limited to intravascular volume depletion versus dehydration versus other electrolyte abnormality versus dysr hythmia, intermittent versus POTS versus anxiety. EKG was obtained and interpreted by myself independently as normal sinus rhythm at 94 bpm without ectopy or acute ST changes. No STEMI. I see no evidence of atrial fibrillation or recurrent SVT. I reviewed her laboratory work and she has normal white count of 6.3 with hemoglobin 13.7, hematocrit 40.2 and platelet count normal at 211. CMP shows normal sodium of 140, potassium 4.3, chloride 105, normal BUN and creatinine. Glucose elevated at 122. Normal anion gap of 10. Urinalysis is negative for ketones, negative for infection with 0-5 WBCs. Although there is rare bacteria, there are 10-25 squamous epithelial cells so I feel this is probably a contaminated specimen and that antibiotics are not indicated. Serum test is negative. Chest x-ray in 1 view interpreted by myself independently shows no evidence of acute process, no pneumonia, no pneumothorax. I reviewed the radiology report which confirms my independent interpretation. While her orthostatics did not show any significant elevation in her heart rate versus drop in her systolic blood pressure, she was lightheaded upon standing. She will be bolused a second liter. She may have more orthostatic hypotension versus undiagnosed POTS. She complained to the RN that she was having a migraine headache and would like medication. I discussed with her the migraine headache cocktail and she states that ever since she gave , her headaches have been increasing and she has seen neurology. She is able to get a ride home so she was administered Compazine and Benadryl. Upon repeat examination, while her headache may have improved, she feels lightheaded perhaps from the Benadryl she states. Regardless, I do feel she can be discharged to follow-up with her primary care provider. She was told she may need to wear a Holter monitor, or she may have undiagnosed POTS. Return instructions to the emergency department were reviewed. Disposition is discha rged home in stable condition. History & Record Review Discussion w/independent historian: Patient Additional record(s) reviewed:: Prior ED visit (Seen yesterday with negative workup.) Lab Data Attestation: I reviewed the patient's lab results. Labs: Laboratory Results - last 24 hr 04/07/25 10:37 WBC 6.3 RBC 4.66 Hgb 13.7 Hct 40.2 MCV 86.3 MCH 29.4 MCHC 34.1 RDW Std Deviation 41.1 RDW Coeff of Symone 13.2 Plt Count 211 MPV 10.2 Immature Gran % (Auto) 0.300 Neut % (Auto) 42.8 L Lymph % (Auto) 45.0 H Toombs % (Auto) 5.9 Eos % (Auto) 5.0 Baso % (Auto) 1.0 Absolute Neuts (auto) 2.7 Absolute Lymphs (auto) 2.81 Nucleated RBC % 0 Reactive Lymphocytes 2+ Sodium 140 Potassium 4.3 Chloride 105 Carbon Dioxide 25.1 Anion Gap 10 BUN 10 Creatinine 0.75 Estim Creat Clear Calc 116.47 Est GFR (MDRD) Non-Af 117 BUN/Creatinine Ratio 13.7 Glucose 122 H Calcium 9.4 Serum , Qual NEGATIVE Urine Color Yellow Urine Clarity Sl. Cloudy Urine pH 6.5 Ur Specific [employer] 1.015 Urine Protein 30 H Urine Glucose (UA) Normal Urine Ketones Negative Urine Occult Blood Negative Urine Nitrite Negative Urine Bilirubin Negative Urine Urobilinogen Normal Ur Leukocyte Esterase 25 H Urine RBC 0 SEEN Urine WBC 0-5 SEEN Ur Squamous Epith Cells 10-25 SEEN Urine Bacteria RARE Urine Mucus 0 SEEN Radiography Chest X-Ray - ED: 1 View, Read by ED Physician, Read by Radiologist and No Acute Disease Diagnostic Testing: Clinical Impression(s) from Imaging Studies Chest X-Ray 04/07/25 10:40 IMPRESSION: Negative Chest. Reading Location: [facility] Discharge Plan Triage Chief Complaint: Palpitations Other Complaint: Headache ED Provider: Jake Pham Dx/Rx/DC Orders Clinical Impression: Lightheadedness, Headache, Heart palpitations Instructions: ED About Arrhythmias, ED Headache Unspecified, ED Near-Fainting, Uncertain Cause Prescriptions: No Action magnesium gluconate 12.5 mg magne- sium (250 mg) tablet 240 mg PO ONCE loratadine [Claritin] 10 mg tablet 10 mg PO QDAY riboflavin (vitamin B2) 400 mg tablet 400 mg PO QDAY mecobalamin (vitamin B12) 1,000 mcg tablet,chewable 1,000 mcg PO QDAY mupirocin 2 % ointment 1 applic topical BID Qty: 22 0RF Rx Instructions: for 10 days; if no improvement then f/u w/ primary care provider meclizine 25 mg tablet 25 mg PO TID PRN (Reason: dizziness) Qty: 20 0RF fluticasone propionate 50 mcg/actuation spray,suspension 1 spray intranasal BID Qty: 16 0RF Rx Instructions: administer 1 spray into each nostril amitriptyline 10 mg tablet 10 mg PO QHS Primary Care Provider: Veronica Muse NP Referrals: Veronica Muse NP, [employer] [Primary Care Provider, Medical] - 3-5 Days Activity Restrictions/Additional Instructions: Drink plenty of oral fluids. Follow-up with your primary care provider. You may need to wear a Holter monitor regarding your elevated heart rate and palpitations. Print Language: Kinyarwanda Disposition Disposition: Home, Self Care
--- NOTE | 2025-04-07 10:40 | RAD_ITS ---
PROCEDURE: CHEST 1 VIEW (PORTABLE) 04/07/2025 REASON FOR EXAM: PALPITATIONS TECHNIQUE: Frontal view of the chest. COMPARISON: 04/05/2025 FINDINGS: LUNGS AND PLEURA: The lungs are clear. No pleural effusion or pneumothorax. HEART AND MEDIASTINUM: The heart size and mediastinal contours are normal. BONES: No acute osseous abnormality. RAD/Chest 1 View (Portable) IMPRESSION: Negative Chest. Reading Location: [id number]
[2025-04-07 10:41] LABS: Mucous, Urine 0 SEEN /hpf (<or=2+); Red Blood Cells-Urine 0 SEEN /hpf (0-5)
[2025-04-07 10:45] LABS: Color, Urine Yellow (Yellow); Glucose, Dipstick Normal (Normal); Hematocrit 40.2 % (37-47); Hemoglobin 13.7 g/dL (12.0-15.0); Immature Granulocytes Count 0.020 X10^3/uL (0.0-0.0); Ketone-Dipstick Negative (Negative); Leukocyte Esterase-Dipstick 25 /ul (Negative); Mean Corp Hgb Conc 34.1 g/dL (32-36); Mean Corpuscular Volume 86.3 fL (81-99); Mean Platelet Vol. 10.2 fl (6.2-12.0); NRBC Flagged by Analyzer 0 % (0-5); Nitrite-Dipstick Negative (Negative); Occult Blood-Urine Negative /ul (Negative); POSITIVE MORPHOLOGY YES; Platelet Count 211 K/mm3 (150-450); Protein-Dipstick 30 mg/dl (Negative); RBC Distribution Width CV 13.2 % (11.6-14.6); RBC Distribution Width SD 41.1 fl (35.1-43.9); Red Blood Count 4.66 M/mm3 (4.2-5.4); Specific Gravity, Urine 1.015 (1.002-1.030); Urine Bilirubin Dipstick Negative (Negative); White Blood Count 6.3 K/mm3 (4.4-11.0)
[2025-04-07 10:49] LABS: Differential Indicated SCAN CRITERIA MET
[2025-04-07 10:59] LABS: Squamous Epithelial Cells - UA 10-25 SEEN /hpf (5-10)
[2025-04-07 11:01] VITALS: BP 106/67; BP 110/80; BP 119/80; PULSE 107; PULSE 81; PULSE 90
--- OUTSIDE RECORDS SUMMARY | 2025-04-07 11:10 | XMS RPT_ITS | CCD ---
Author Organization [facility] Care Team Providers Care Focus Puller Name Role Phone Playl Aden YOUNGER Primary Care Provider Dr. Dennis Recinos Primary Care Provider Dr. Dennis Recinos Referring Provider Dr. Toshia Mendes Attending Provider [phone] Dr. Dennis Recinos Primary Care Provider Dr. Dennis Recinos Referring Provider Dr. Toshia Mendes Attending Provider Dr. Deborah Ochoa Attending Provider Chuy MARKETING STRATEGY LEAD, MARKETING STRATEGY LEAD-C Monisha Attending Provider [phone] Care Physician, No Primary Primary Care Provider Unavailable Care Physician, No Primary Referring Provider Un available Dr. Dennis Recinos Primary Care Provider Dr. Dennis Recinos Referring Provider Dr. Deborah Ochoa Attending Provider Chuy MARKETING STRATEGY LEAD, MARKETING STRATEGY LEAD-C Monisha Attending Provider Care Physician, No Primary Primary Care Provider Unavailable Care Physician, No Primary Referring Provider Un available Dr. Leslie Serrano Attending Provider Chuy MARKETING STRATEGY LEAD, MARKETING STRATEGY LEAD-C Monisha Referring Provider Dr. Dennis Recinos Referring Provider Dr. Deborah Ochoa Attending Provider Lu Dubois Attending Provider Unavailable Dr. Jordan Medellin Attending Provider Dr. Toshia Mendes Attending Provider Care Physician, No Primary Primary Care Provider Unavailable Care Physician, No Primary Referring Provider Un available Chuy MARKETING STRATEGY LEAD, MARKETING STRATEGY LEAD-Angeline Bearden Attending Provider [phone] Dr. Toshia [...] UnavailIssac Melgar MD Primary Care Provider Podlogar CONTAINER WASHER MACHINE.Veronica MEZA Unavailable Knoble CONTAINER WASHER MACHINE.Marychuy MEZA Unavailable TRISHA TAN PA-C Attending Unavailable TRISHA TAN PA-C Primary Care Unavailable TRISHA TAN PA-C Primary Care Unavailable CAROL CONTAINER WASHER MACHINE-MARIELLE MEZA Attending Unavaila ble Knoble CONTAINER WASHER MACHINE.Marychuy MEZA Unavailable Knoble CONTAINER WASHER MACHINE.Marychuy MEZA Unavailable Knoble CONTAINER WASHER MACHINE.Marychuy MEZA Unavailable ISSAC FERNÁNDEZ Primary Care Unavailab BHARAT Gomez Attending Unavailable ISSAC FERNÁNDEZ Referring Unavailab ISSAC Lock Primary Care Unavailab ISSAC Lock Referring Unavailab ISSAC Lock Primary Care Unavailab ISSAC Lock Primary Care Unavailab ROHAN Antunez Attending Unavailable ISSAC FERNÁNDEZ Referring Unavailab ISSAC Lock Primary Care Unavailab CITLALI Alcantar Attending Unavailable ISSAC FERNÁNDEZ Primary Care [...] Attending Unavailab ISSAC Lock Primary Care Unavailab ISSCA Lock Attending Unavailab ISSAC Lock Primary Care Unavailab ISSAC Lock Primary Care Unavailab cristina SANTOS SOLER Referring Unavailable ISSAC FERNÁNDEZ Primary Care Unavailab le MAXINE ELLIS Attending Unavailable ISSAC FERNÁNDEZ Primary Care Unavailab le CALEB, MAXINE Yung Attending Unavailable RAJGURU, MAXINE J Referring Unavailable ISSAC FERNÁNDEZ Primary Care Unavailab le RAJGURU, MAXIEN J Referring Unavailable RAJMAXINE SALINAS J Attending Unavailable PODLOGVERONICA BERGER Attending Unavailable ISSAC FERNÁNDEZ Primary Care Unavailab Av Velez Attending Unavailable Podlogar, Veronica Primary Care Unavailable Podlogar, Veronica Primary Care Unavailable John Dash Attending Unavailable Lu Mcclain Attending Unavailable Lu Mcclain Referring Unavailable Podlogar, Veronica Primary Care Unavailable Lu Mcclain Attending Unavailable Lu Mcclain Referring Unavailable Podlogar, Veronica Primary Care Unavailable Podlogar, Veronica Primary Care Unavailable John Zepeda Attending Unavailable Fortune MARKETING STRATEGY LEAD, Lanie Attending Unavailable Care Physician, No Primary Referring Unava ilable Care Physician, No Primary Primary Care Unava ilable Fortune MARKETING STRATEGY LEAD, Lanie Attending Unavailable Care Physician, No Primary Referring Unava ilable Care Physician, No Primary Primary Care Unava ilable Fortune MARKETING STRATEGY LEAD, Lanie Attending Unavailable Care Physician, No Primary Referring Unava ilable Care Physician, No Primary Primary Care Unava ilable Lu Mcclain Attending Unavailable Care Physician, No Primary Referring Unava ilable Care Physician, No Primary Primary Care Unava ilable Lu Mcclain Attending Unavailable Care Physician, No Primary Referring Unava ilable Podlogar, Veronica Primary Care Unavailable Podlogar, Veronica Primary Care Unavailable Chriss Dumont Attending Unavailable Podlogar, Veronica Referring Unavailable Lu Mcclain Attending Unavailable Care Physician, No Primary Primary Care Unava ilable Care Physician, No Primary Referring Unava ilable Lu Mcclain Attending Unavailable Lu Mcclain Referring Unavailable Podlogar, Veronica Primary Care Unavailable Lu Mcclain Attending Unavailable Podlogar, Veronica Primary Care Unavailable Podlogar, Veronica Primary Care Unavailable Ilsa Johnson Attending Unavailable Allergies Allergy Classification Reported Allergen(s) Allergy Type Date of Onset Reaction(s) Facility (20 sources) Citalopram; Translations: [CITALOPRAM] Drug Allergy 4 Other: See Comments [facility] (20 sources) Escitalopram; Translations: [ESCITALOPRAM] Drug Allergy [address] [facility] (1 source) Citalopram Drug Allergy 5 [facility] (1 source) Escitalopram Drug Allergy 5 [facility] Medications Current Medications Medication Drug Class(es) [...] DAY 60 May 13, 2022 12:00am Multivit 54-Tzvg-Bsvrdw 1-Dha (Pnv-Dha) 27 mg iron-1 mg -300 mg capsule (10 sources) Start: 2 take 1 capsule by mouth once daily Multivit 79-Onma-Bpkrvk 1-Dha (Pnv-Dha) 27 mg iron-1 mg -300 mg capsule Active 1 CAP PO DAILY May 11, 2022 12:00am Start: 05-11-2022 take 1 capsule by mo [facility] once daily Multivit 33-Falg-Ixpzde 1-Dha (Pnv-Dha) 27 mg iron-1 mg -300 [...] daily. 30 tablet 03/03/2025 Active polymyxin b 18049 unt/ml / trimethoprim 1 mg/ml ophthalmic solution [...] above: Take 1 tablet by celso th once daily. Completed/Discontinued Medications Medication Drug Class(es) Dates Sig (Normalized) Sig (Original) [id number] 200 actuat albuterol 0.09 mg/actuat metered dose [...] Blood-Glucose Meter (True Metrix Air Glucose Meter) [facility] (10 sources) Start: 11-03-2022 End: 01-04-2023 Blood-Glucose Meter (True Metrix Air Glucose Meter) [facility] Discontinued 0 .ROUTE .MEDSUPPLY November 03, 2022 9:46am January 04, 2023 2:31pm As directed- fasting and 2 hr post meals Start: 11-03-2022 End: 01-04-2023 Blood-Glucose Meter (True Me trix Air Glucose Meter) [facility] Discontinued 0 .ROUTE .MEDSUPPLY November 03, 2022 10:46am January 04, 2023 3:31pm As directed- fasting and 2 hr post meals Start: 11-03-2022 Blood-Glucose Meter (True Metrix Air Glucose Meter) [facility] Active 0 .ROUTE .MEDSUPPLY 1 November 03, 2022 10:46am As directed- fasting and 2 hr post meals Start: 11-03-2022 End: 11-03-2022 Blood-Glucose Meter (True Me trix Air Glucose Meter) [facility] Discontinued 0 .ROUTE .MEDSUPPLY November 02, 2022 11:00pm November 03, 2022 9:47am As directed Start: 11-03-2022 End: 11-03-2022 Blood-Glucose Meter (True Me trix Air Glucose Meter) [facility] Discontinued 0 .ROUTE .MEDSUPPLY November 03, 2022 [...] 23, 2023 8:59am 21 day ethinyl estradiol 0.461188 mg/hr / etonogestrel 0.005 mg/hr vaginal system [...] current use of drug therapy; Translations: [Other fpc (current) drug therapy] 08-14-2024 Episodic Other aftercare (1 source) Other fpc (current) drug therapy; Translations: [Encounter for long-term [...] conditions (not mental disorders or infectious disease) (2 sources) Encounter for test, result unknown; Translations: [...] Test Name Value Interpretation Reference Range Facility Emergency Department Summary on 04-06-2025 Emergency Department Summary [facility] Medical Records Department [address] [place] [address] Emergency Department Summary 04/06/25 MR#: [id number] Acct: [id number] Name: SHAWANDA BRINK Rep #: [id number] : 2005 19 From: Ilsa Johnson MD PCP: ZOFIA Farr Status:DEP ER Location: ED HPI History of Present Illness Chief Complaint: Palpitations Narrative Narrative: Patient is a 19-year-old female presenting to the emergency department for intermittent palpitations over the past year that have become more frequent over the past few weeks as well as a headache that she has had for 5 days. 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 She states that today it was in the 130s to 140s. She states that it bounces all around. She reports when she has the episode she feels lightheaded as well as short of breath and can feel her heart pounding. States this is happened before over the past year and she has worn a Holter monitor with no irregular heart rhythms noted. Patient denies any chest pain. She is also reporting a headache that started about 5 days ago. It started gradually. Did not reach maximal onset within 1 second. She denies any head trauma. She states she does have a history of migraines and this headache is not as bad as her normal headaches but they usually do not last this long. States she has been taking Tylenol and Motrin for symptomatic control. She reports its bandlike around her head. Denies any vision changes or speech deficit. Denies any focal numbness or weakness. Denies abdominal pain, nausea, vomiting, diarrhea. Denies any lower extremity edema. Denies history of PE or DVT. Denies recent surgeries, hospitalizations or travel. She is not on any OCPs. [facility] Medical History Navel cellulitis Former smoker Hx of gestational [...] dizziness #20 tab s 02/08/25 Unknown Rx loratadine 10 mg tablet (Claritin) 10 mg PO QDAY 04/03/25 Unknown H istory magnesium gluconate 12.5 mg 240 mg PO ONCE 04/03/25 Unknown Hi story magnesium (250 mg) tablet mecobalamin (vitamin B12) 1,000 1,000 mcg PO QDAY 04/03/25 Unknown History mcg chewable tablet mupirocin 2 % topical ointment 1 applic topical BID #22 grams Unknown Rx riboflavin (vitamin B2) 400 mg 400 mg PO QDAY 04/03/25 Unknown Hi story tablet Allergy/AdvReac Type Severity Reaction Status Date / Time citalopram (From Celexa) Allergy Other Verified 04/05/25 17:38 escitalopram (From Lexapro) Allergy Other Verified 04/05/25 17:38 Family History Grandmother Cervical cancer, Onset Age: [...] employed current occupation: Will be starting at [employer] current occupational exposures/hazards: No pets and animals: [...] physical activity do you participate in: none jenni/protestant: Oriental Orthodox seatbelt use: always do you feel safe at home: Yes additional social history: 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 Normal [facility] Basic Metabolic Profile (BMP )on 04-05-2025 BUN/CRE 13.2 RATIO Normal 10-20 [facility] Comment on above: Performed By: #### L 100.0100, L500.2500 #### [facility] [address] [place], [address] Calcium [Mass/Vol] 9.6 mg/dL Normal 7.6-11.0 [facility] Comment on above: Performed By: #### L 100.0100, L500.2500 #### [facility] [address] [place], [address] Chloride [Moles/Vol] 101 mmol/L Normal 98-108 [facility] Comment on above: Performed By: #### L 100.0100, L500.2500 #### [facility] [address] [place], [address] CO2 [Moles/Vol] 22.1 mmol/L Normal 21.0-32.0 [facility] Comment on above: Performed By: #### L 100.0100, L500.2500 #### [facility] [address] [place], [address] Creatinine [Mass/Vol] 0.69 mg/dL Low 0.70-1.20 [facility] Comment on above: Performed By: #### L 100.0100, L500.2500 #### [facility] [address] [place], [address] ECRCL 126.30 ml/min Normal 50-250 [facility] Comment on above: Performed By: #### L 100.0100, L500.2500 #### [facility] [address] [place], [address] GAP 15 Normal 5-15 [facility] Comment on above: Performed By: #### L 100.0100, L500.2500 #### [facility] [address] [place], [address] GFR/1.73 sq M.predicted among non-blacks MDRD (S/P/Bld) [Vol rate/Area] 127 mL/min/{1.73_m2} Normal >60 [facility] Comment on above: Result Comment: mL/m in/1.73m2 CKD-EPI Creatinine Equation (2020) Performed By: #### L 100.0100, L500.2500 #### [facility] [address] [place], [address] Glucose [Mass/Vol] 95 mg/dL Normal 70-99 [facility] Comment on above: Performed By: #### L 100.0100, L500.2500 #### [facility] [address] [place], [address] Potassium [Moles/Vol] 3.9 mmol/L Normal 3.3-5.1 [facility] Comment on above: Performed By: #### L 100.0100, L500.2500 #### [facility] [address] [place], [address] Sodium [Moles/Vol] 138 mmol/L Normal 133-145 [facility] Comment on above: Performed By: #### L 100.0100, L500.2500 #### [facility] [address] [place], [address] Urea nitrogen [Mass/Vol] 9 mg/dL Normal 4-19 [facility] Comment on above: Performed By: #### L 100.0100, L500.2500 #### [facility] [address] [place], [address] CBC W/Diff, Automatedon - PLT EST ADEQUATE Normal ADEQ [facility] Comment on above: Performed By: #### L 100.0100, L500.2500 #### [facility] [address] [place], [address] SMEAR COMMENT SCANNED Normal [facility] Comment on above: Performed By: #### L 100.0100, L500.2500 #### [facility] [address] [place], [address] Chest PA and Lateralon 04-05 Chest PA and Lateral [facility] Imaging Services [address] [place] [address] Chest PA and Lateral MR#: [id number] Acct: [id number] Name: SHAWANDA BRINK Rep #: [id number] : 2005 F 19 From: Otoniel James MD PCP: Veronica Muse, MARKETING STRATEGY LEAD-C Status: PRE ER Study: Chest PA and Lateral Date of Exam: 04/05/25 Exam# [id number] Ordering Dr: Ilsa Johnson MD EXAM: XR Chest, 1 View CLINICAL INDICATION: PALPITATIONS TECHNIQUE: Frontal view of the chest. COMPARISON: No relevant prior studies available. FINDINGS: LUNGS AND PLEURAL SPACES: Unremarkable. No consolidation. No pneumothorax. HEART: Unremarkable. No cardiomegaly. MEDIASTINUM: Unremarkable. Normal mediastinal contour. BONES/JOINTS: Unremarkable. No acute fracture. RAD/Chest PA and Lateral IMPRESSION: No acute cardiopulmonary process. Reading Location: [facility] CC: MARKETING STRATEGY LEAD-C Veronica Muse; Dr. Ilsa Johnson MD Disc Pad Grinding Machine Feeder: Signed Normal [facility] D-Dimer Quantitative (DVT/PE )on 04-05-2025 D-DIMER QUANT 0.46 FEU/ug/m Normal 0.27-0.49 [facility] Comment on above: Result Comment: NORM AL D-Dimer level (<0.50) indicates no DVT or PE. Performed By: #### L 501.5200, L300.8000, L501.9520 #### [facility] [address] [place], [address] Magnesiumon 04-05-2025 Magnesium [Mass/Vol] 2.4 mg/dL High 1.5-2.2 [facility] Comment on above: Performed By: #### L 501.5200, L300.8000, L501.9520 #### [facility] [address] [place], [address] ,Urineon 04-05-2025 Beta HCG ( test) Ql (U) Normal [facility] Comment on above: Result Comment: YADY ENT DISCHARGED Performed By: #### L 100.0100, L500.2500 #### [facility] [address] [place], [address] INTERNAL QC OK? Normal [facility] Comment on above: Result Comment: YADY ENT DISCHARGED Performed By: #### L 100.0100, L500.2500 #### [facility] [address] [place], [address] RECORD KIT LOT# Normal [facility] Comment on above: Result Comment: YADY ENT DISCHARGED Performed By: #### L 100.0100, L500.2500 #### [facility] [address] [place], [address] Thyroid Stim Hormone (TSH)on 04-05-2025 TSH 0.971 uIU/mL Normal 0.300-4.200 [facility] Comment on above: Performed By: #### L 501.5200, L300.8000, L501.9520 #### [facility] [address] [place], [address] Urgent Care Visit Reporton 0 04-03-2025 Urgent Care Visit Report [facility] [address], [address] [place] [address] OFFICE VISIT Date of Service: 04/03/25 MR#: [id number] Acct: [id number] Name: SHAWANDA BRINK Rep #: [id number] : 2005 Provider: JENNIFER Boateng Age/Sex: 19/F Location[facility] Status: Signed Intake Vital Signs 03/28/25 11:10 [...] months ago but it has gone away. [facility] Medical History (Updated 04/03/25 @ 10:29 by Chriss RODRIGUEZ, PA) Navel cellulitis Former smoker Hx of [...] employed current occupation: Will be starting at [employer] current occupational exposures/hazards: No pets and animals: [...] physical activity do you participate in: none jenni/protestant: Oriental Orthodox seatbelt use: always do you feel safe at home: Yes additional social history: Aura Valderrama Jr.- [employer] HPI HPI Chief Complaint: bellu button infection Details: SHAWANDA BRINK, is a 19 F who presents to the office today for initial evaluation at the [facility] clinic for persistent erythema, swelling, tenderness to the umbilicus of unknown etiology for approximately 5 months, noting she has used antifungal cream topically twice a day for 6 weeks without improvement. No localized discharge from the same. PMH NC. No wjbu-vpm-frdqtnu oral medications taken to assist. No other associated symptoms and no other alleviating/aggravating factors. ROS Const Constitutional: No other (As above) Exam Const General: cooperative, healthy appearing and no acute distress Nutritional Appear (more content not included)... Normal [facility] CNOVon 04-02-2025 CNOV Office Visit (PSWSTR ) SHAWANDA BRINK ([id number]) 1 F Date Time Provider Department 04/02/25 8:00 AM MAXINE ELLIS PSWSTR During your visit today, we recorded the following information about you: Maxine Ellis, CONTAINER WASHER MACHINE.[facility] 04/02/2025 8:29 AM Signed Patient did not come in for her follow up appointment with the provider. Referring Provider: MAXINE ELLIS [[id number]] Allergies As of Date: 04/02/2025 Noted Allergy [...] Status:Closed by MAXINE ELLIS on 04/02/25 Normal [facility] Basic Metabolic Profile (BMP )on 03-28-2025 BUN/CRE 16.1 RATIO Normal 10-20 [facility] Comment on above: Performed By: #### L 500.2500, L100.0100 #### [facility] [address] [place], [address] Calcium [Mass/Vol] 9.6 mg/dL Normal 7.6-11.0 [facility] Comment on above: Performed By: #### L 500.2500, L100.0100 #### [facility] [address] [place], [address] Chloride [Moles/Vol] 105 mmol/L Normal 98-108 [facility] Comment on above: Performed By: #### L 500.2500, L100.0100 #### [facility] [address] [place], [address] CO2 [Moles/Vol] 24.4 mmol/L Normal 21.0-32.0 [facility] Comment on above: Performed By: #### L 500.2500, L100.0100 #### [facility] [address] [place], [address] Creatinine [Mass/Vol] 0.78 mg/dL Normal 0.70-1.20 [facility] Comment on above: Performed By: #### L 500.2500, L100.0100 #### [facility] [address] [place], [address] ECRCL 111.30 ml/min Normal 50-250 [facility] Comment on above: Performed By: #### L 500.2500, L100.0100 #### [facility] [address] [place], [address] GAP 11 Normal 5-15 [facility] Comment on above: Performed By: #### L 500.2500, L100.0100 #### [facility] [address] [place], [address] GFR/1.73 sq M.predicted among non-blacks MDRD (S/P/Bld) [Vol rate/Area] 110 mL/min/{1.73_m2} Normal >60 [facility] Comment on above: Result Comment: mL/m in/1.73m2 CKD-EPI Creatinine Equation (2020) Performed By: #### L 500.2500, L100.0100 #### [facility] [address] [place], [address] Glucose [Mass/Vol] 89 mg/dL Normal 70-99 [facility] Comment on above: Performed By: #### L 500.2500, L100.0100 #### [facility] [address] [place], [address] Potassium [Moles/Vol] 3.9 mmol/L Normal 3.3-5.1 [facility] Comment on above: Performed By: #### L 500.2500, L100.0100 #### [facility] [address] [place], [address] Sodium [Moles/Vol] 141 mmol/L Normal 133-145 [facility] Comment on above: Performed By: #### L 500.2500, L100.0100 #### [facility] [address] [place], [address] Urea nitrogen [Mass/Vol] 13 mg/dL Normal 4-19 [facility] Comment on above: Performed By: #### L 500.2500, L100.0100 #### [facility] [address] [place], [address] CBC W/Diff, Automatedon 09-07 18-2024 Absolute Lymph 0.89 X10 3/uL Normal 0.83-4.51 [facility] Comment on above: Performed By: #### L 500.2500, L100.0100 #### [facility] [address] [place], [address] Absolute Neut 3.0 X10 3/uL Normal 2.0-7.7 [facility] Comment on above: Performed By: #### L 500.2500, L100.0100 #### [facility] [address] [place], [address] Basophils/100 WBC (Bld) 0.5 % Normal 0-1 [facility] Comment on above: Performed By: #### L 500.2500, L100.0100 #### [facility] [address] [place], [address] Eosinophils/100 WBC (Bld) 2.5 % Normal 0-5 [facility] Comment on above: Performed By: #### L 500.2500, L100.0100 #### [facility] [address] [place], [address] Erythrocyte distribution width (RBC) [Ratio] 12.7 % Normal 11.6-14.6 [facility] Comment on above: Performed By: #### L 500.2500, L100.0100 #### [facility] [address] [place], [address] Hematocrit (Bld) [Volume fraction] 41.9 % Normal 37-47 [facility] Comment on above: Performed By: #### L 500.2500, L100.0100 #### [facility] [address] [place], [address] Hemoglobin (Bld) [Mass/Vol] 14.3 g/dL Normal 12.0-15.0 [facility] Comment on above: Performed By: #### L 500.2500, L100.0100 #### [facility] [address] [place], [address] IG% 0.200 Normal 0.0-0.9 [facility] Comment on above: Result Comment: IG% - Immature Granulocytes (promyelocytes, myelocytes and metamyelocytes) > 1% indicates that a LEFT SHIFT is Present. Performed By: #### L 500.2500, L100.0100 #### [facility] [address] [place], [address] Lymphocytes/100 WBC (Bld) 20.3 % Normal 19-41 [facility] Comment on above: Performed By: #### L 500.2500, L100.0100 #### [facility] [address] [place], [address] MCH (RBC) [Entitic mass] 29.6 pg Normal 27.0-32.0 [facility] Comment on above: Performed By: #### L 500.2500, L100.0100 #### [facility] [address] [place], [address] MCHC (RBC) [Mass/Vol] 34.1 g/dL Normal 32-36 [facility] Comment on above: Performed By: #### L 500.2500, L100.0100 #### [facility] [address] [place], [address] MCV (RBC) [Entitic vol] 86.7 fL Normal 81-99 [facility] Comment on above: Performed By: #### L 500.2500, L100.0100 #### [facility] [address] [place], [address] Monocytes/100 WBC (Bld) 7.7 % Normal 0-10 [facility] Comment on above: Performed By: #### L 500.2500, L100.0100 #### [facility] [address] [place], [address] Neutrophils/100 WBC (Bld) 68.8 % Normal 47-70 [facility] Comment on above: Performed By: #### L 500.2500, L100.0100 #### [facility] [address] [place], [address] Nucleated RBC (Bld) [#/Vol] 0 10*3/uL Normal 0-5 [facility] Comment on above: Performed By: #### L 500.2500, L100.0100 #### [facility] [address] [place], [address] Platelet mean volume (Bld) [Entitic vol] 10.4 fL Normal 6.2-12.0 [facility] Comment on above: Performed By: #### L 500.2500, L100.0100 #### [facility] [address] [place], [address] Platelets (Bld) [#/Vol] 215 10*3/uL Normal 150-450 [facility] Comment on above: Performed By: #### L 500.2500, L100.0100 #### [facility] [address] [place], [address] RBC (Bld) [#/Vol] 4.83 10*6/uL Normal 4.2-5.4 [facility] Comment on above: Performed By: #### L 500.2500, L100.0100 #### [facility] [address] [place], [address] RDW SD 40.1 fl Normal 35.1-43.9 [facility] Comment on above: Performed By: #### L 500.2500, L100.0100 #### [facility] [address] [place], [address] WBC (Bld) [#/Vol] 4.4 10*3/uL Normal 4.4-11.0 [facility] Comment on above: Performed By: #### L 500.2500, L100.0100 #### [facility] [address] [place], [address] CNOVon 03-28-2025 CNOV Office Visit (WOPRAVIN) SHAWANDA BRINK ([id number]) 1 F Date Time Provider Department 03/28/25 [...] her PCP last week. Her children have owkv-nwmy-fem-mouth disease. She was exposed to COVID and works in a [employer]. She has taken Advil sinus for symptoms [...] The patient was other (comment) (referred to [facility]). Procedures Allergies As of Date: [...] at th (more content not included)... Normal [facility] Chest PA and Lateralon 03-28 Chest PA and Lateral [facility] Imaging Services [address] [place] [address] [id number] Chest PA and Lateral MR#: [id number] Acct: [id number] Name: SHAWANDA BRINK Rep #: [id number] : 2005 F 19 From: Kael Gibbs PCP: JILLIAN FarrC Status: REG ER Study: Chest PA and Lateral Date of Exam: 03/28/25 Exam# [id number] Ordering Dr: John Dash DO PROCEDURE: CHEST PA AND LATERAL 03/28/2025 REASON FOR EXAM: COUGH TECHNIQUE: Procedure Code: RADCXR Modality: DX Procedure: CHEST PA AND LATERAL COMPARISON: None. RAD/Chest PA and Lateral IMPRESSION: Lungs appear clear throughout. No pleural effusion or pneumothorax is seen. The cardiomediastinal silhouette is within the normal range. No significant osseous abnormality is seen. Negative examination. Reading Location: [place] [address] CC: MARKETING STRATEGY LEAD-C Veronica Muse; Dr. John Dash DO Disc Pad Grinding Machine Feeder: Signed Normal [facility] Emergency Department Summary on 03-28-2025 Emergency Department Summary [facility] Medical Records Department [address] [place] [address] Emergency Department Summary 03/28/25 MR#: [id number] Acct: [id number] Name: SHAWANDA BRINK Rep #: [id number] : 2005 19 From: John Dash DO [...] Patient admits to rhinorrhea and postnasal drainage. [facility] Medical History Former smoker Hx of gestational [...] employed current occupation: Will be starting at [employer] current occupational exposures/hazards: No pets and animals: [...] physical activity do you participate in: none jenni/protestant: Oriental Orthodox seatbelt use: always do you feel safe [...] Pressure 128 (more content not included)... Normal [facility] Folate SerPl-mCncon 03-28-20 25 Folate [Mass/Vol] ng/mL Normal >4.7 [facility] Comment on above: Order Comment: Speci men Type: BLOOD SPECIMENOrdering Facility: [facility] Address: [address] [place] [address] Result Comment: A re sult of > 20 ng/mL is not necessarily indicative of a pathologic or treatable condition: it reflects a limitation of the test methodology. Assay reference range: 4.8 to 24.2 ng/mL. Suitable for detection of folate deficiency. Reference: Folate III (Folate III) [package insert V 1.0 Beninese]. [facility], [place], [place]: May 2015. Performed By: #### 2 284-8, 3016-3, 2132-9 ####[facility] LABCLIA [id number] [place] [address] [place] M100.678on 03-28-2025 M100.678 COVID ERROR FLUA ERROR FLUB ERROR RSV ERROR SARS-CoV-2 (COVID 19) Negative INFLUENZA A Negative INFLUENZA B Negative RSV PCR Negative Normal [facility] Comment on above: Performed By: #### L 7400.0353 #### [facility] [address] [place], [address] TSH SerPl-aCncon 03-28-2025 TSH Qn 0.624 m[IU]/L Normal 0.270-4.200 [facility] Comment on above: Order Comment: Speci men Type: BLOOD SPECIMENOrdering Facility: [facility] Address: [address] [place] [address] Result Comment: If t he patient is , TSH reference range varies by gestational period: First Trimester (weeks 9-12): 0.180-2.990 mIU/L Second Trimester: 0.110-3.980 mIU/L Third Trimester: 0.480-4.710 mIU/L Khoa Hernandez et al. A Practical Approach for the Verifications and Determination of Site- and Trimester-Specific Reference Intervals for Thyroid Function tests in . Thyroid, 2019:29:3:412-420. Macario E, et al. 2017 Guidelines of the [place] Thyroid Association for the Diagnosis and Management of Thyroid Disease during and the . Thyroid, 2017:27:3:315-389. Performed By: #### 2 284-8, 3016-3, 2132-9 ####[facility] LABCLIA [id number] [place] [address] [place] Venous Duplex US, Unilateral on 03-28-2025 Venous Duplex US, Unilateral [facility] [address] [facility] [place] [address] Venous Duplex US, Unilateral 03/28/25 1244 MR#: [id number] Acct: [id number] Name: SHAWANDA BRINK Rep #: [id number] : 2005 19 From: John Zepeda MD [...] Physician: Veronica Muse NP Performed By: Jenni Navarrete RVT 03/28/25 1453 Date John Zepeda MD CC: ZOFIA Muse; Dr. 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 Grinding Machine Feeder: Signed Normal [facility] Cobalamin (Vitamin B12) [Mass/Vol] 475 pg/mL Normal 232-1245 [facility] Comment on above: Order Comment: Speci men Type: BLOOD SPECIMENOrdering Facility: [facility] Address: [address] [place] [address] Performed By: #### 2 284-8, 3016-3, 2132-9 ####[facility] LABCLIA [id number] [place] [address] [place] CNPNon 03-27-2025 CNPN Telephone (PSYLME) DESHAWANDA PATTON ([id number]) 1 F Date Time Provider Department 03/27/25 TOSHIA HESS During your visit today, we recorded the following information about you: Toshia Hess LPCC 03/27/2025 2:29 PM Signed Behavioral Health Social Work Progress Note Patient [facility] for [facility] from: PCP [facility] encounter type: Telephone Encounter Attempts to Outreach: 4 attempts Referral made: Psychology - Internal Psychology-Internal referral type: Therapy Final Disposition: Care established with Patient Discharged?: No therapist returned patient's call, left [facility] for patient to return call to scheduled therapy appointment. MARGARETTE Henderson-S March 27, 2025 Allergies As of Date: [...] anxiety disorder [F41.1] 08/04/2021 Encounter Status:Closed by TOSHIA HESS on 03/27/25 Normal [facility] PAP I-G w/rfx hrHPV-Aptimaon 03-27-2025 ADEQ Comment Normal . [facility] Comment on above: Order Comment: Speci men Comment: [id number] Specimen Comment: No. of containers..01 ThinPrep Vial Result Comment: Sati sfactory for evaluation. Endocervical and/or squamous metaplastic cells (endocervical component) are present. Performed By: #### L 7400.0353 #### [facility] [address] [place], [address] COMM . Normal . [facility] Comment on above: Order Comment: Speci men Comment: [id number] Specimen Comment: No. of containers..01 ThinPrep Vial Performed By: #### L 7400.0353 #### [facility] [address] [place], [address] COMMENT Comment Normal . [facility] Comment on above: Order Comment: Speci men Comment: [id number] Specimen Comment: No. of containers..01 ThinPrep Vial Result Comment: This liquid based ThinPrep(R) pap test was screened with the use of an image guided system. Performed By: #### L 7400.0353 #### [facility] [address] [place], [address] DIAG Comment Normal . [facility] Comment on above: Order Comment: Speci men Comment: [id number] Specimen Comment: No. of containers..01 ThinPrep Vial Result Comment: NEGA TIVE FOR INTRAEPITHELIAL LESION OR MALIGNANCY. THIS SPECIMEN WAS RESCREENED PART OF OUR [facility]'S ATTORNEY PROGRAM. Performed By: #### L 7400.0353 #### [facility] [address] [place], [address] HPV RFLX Comment Normal . [facility] Comment on above: Order Comment: Speci men Comment: [id number] Specimen Comment: No. of containers..01 ThinPrep Vial Result Comment: The HPV DNA reflex criteria were not met with this specimen result therefore, no HPV testing was performed. Performed at: [address] [place] [id number] Irrigation Technician: Ashley Barton MD, Phone: [phone] Performed By: #### L 7400.0353 #### [facility] [address] [place], [place], [address] PAPSMR Comment Normal . [facility] Comment on above: Order Comment: Speci men Comment: [id number] Specimen Comment: No. of containers..01 ThinPrep Vial Result Comment: The Pap smear is a screening test designed to aid in the detection of premalignant and malignant conditions of the uterine cervix. It is not a diagnostic procedure and should not be used as the sole means of detecting cervical cancer. Both false-positive and false-negative reports do occur. Performed By: #### L 7400.0353 #### [facility] [address] [place], [place], [address] PERFORM Comment Normal . [facility] Comment on above: Order Comment: Speci men Comment: [id number] Specimen Comment: No. of containers..01 ThinPrep Vial Result Comment: Madelaine Luevano, Supervisory Senior Advocate (ASCP) Performed By: #### L 7400.0353 #### [facility] [address] [place], [place], [address] QC REV Comment Normal . [facility] Comment on above: Order Comment: Speci men Comment: [id number] Specimen Comment: No. of containers..01 ThinPrep Vial Result Comment: Naomi Dunn, Senior Advocate (ASCP) Performed By: #### L 7400.0353 #### [facility] [address] [place], [place], [address] CNOVon 03-22-2025 CNOV Office Visit (FAMPWS ) SHAWANDA BRNIK ([id number]) 1 F Date Time Provider Department 03/22/25 9:00 AM ISSAC FERNÁNDEZ During your visit today, [...] follow up after echo results. Recording using [employer] software for draft documentation of the visit was discussed with the patient/authorized insurance verification representative; all questions welcomed and answered. Patient/authorized insurance verification representative agreed to proceed HPI Shawanda Brink [...] PMH - PAST MEDICAL HISTORY OF vascular otoniel left ankle Previous Surgical History PAST SURGICAL HISTORY Procedure Laterality Date NONE Family History FAMILY HISTORY Problem Relation Age of Onset Ange Disease Mother other (pulmnary embolism) Father other (mass on liver) Father other (depression and anxiety) Maternal Grandmother Cervical Cancer Maternal Grandmother other (IA) Maternal Grandfather 49 other (depression and anxiety) [...] 11/03/2032 Hepatitis (more content not included)... 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: No Is patient in pain?: No [...] : No : Yes Control Method: [facility] Medical History Former smoker Hx of gestational [...] employed current occupation: Will be starting at [employer] current occupational exposures/hazards: No pets and animals: No (not managing litterbox while ) history of recent travel: No ([place]) sexually active: Yes Smoking Status: Former smoker how long ago did patient quit smoking: Quit 04/08 alcohol intake: never substance use type: does not use well-balanced diet: daily or most days caffeine: No (ocassional) eating out: 1-3 times/week during the past year weight has: increased > 10 lbs what type of physical activity do you participate in: none jenni/protestant: Oriental Orthodox seatbelt use: always do you feel safe at home: Yes additional social history: [employer] History 2 Elective abortions Hx Para 1 Spontaneous abortions Hx # Term Pregnancies 2 Ectopic pregnancies Hx # Pregnancies Multiple births # of living children 2 Past Pregnancies Del. Date Name GA/Weeks Outcome Route Bth Weight Gen Labor Lgth Anesthesia Del Locatn Provider FOB 12/15/22 Oksana 39 live - full term vacuum 8lbs 8oz Female [facility] Dr Quynh Marie 01/30/24 Charlie 40 live - full term Male [facility] KW Delivery Date: 12/15/22 Last Updated by: Jany Calderon Gestational diabetes Delivery Date: 01/30/24 Last Updated by: Yohana Su IOL HPI Encounter for routine gynecological examination Details: SHAWANDA [...] as docu (more content not included)... Normal [facility] HbA1c (Bld)on 03-20-2025 Average glucose Estimated from glycated hemoglobin (Bld) [Mass/Vol] 100 mg/dL Normal [facility] Comment on above: Order Comment: Isaiah velasquez Type: BLOOD SPECIMENOrdering Facility: [facility] Address: [address] [place] [address] Result Comment: eAG: (Estimated average glucose) is a calculated value from HgbA1c and is insurance verification representative of the average blood glucose level in the last 2-3 month period. Performed By: #### 5 5454-3 ####[facility] LABCLIA [id number] [place] [address] [place] HbA1c (Bld) [Mass fraction] 5.1 % Normal 4.3-5.6 [facility] Comment on above: Order Comment: Isaiah velsaquez Type: BLOOD SPECIMENOrdering Facility: [facility] Address: [address] [place] [address] Result Comment: Amer [place] Diabetes Association guidelines indicate that patients with HgbA1c in the range 5.7-6.4% are at increased risk for development of diabetes, and intervention by lifestyle modification may be beneficial. HgbA1c greater or equal to 6.5% is considered diagnostic of diabetes. 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 03-16-2025 [facility] Telephone (FAMPWS) SHAWANDA BRINK ([id number]) 1 F Date Time Provider Department 03/16/25 ISSAC FERNÁNDEZ [facility] During your visit today, we recorded [...] as dicussed during call. Bela Martinez RN PodlogarVeronica APRN.CHANNELER OUTSOLE 03/19/2025 7:14 AM Signed Reviewed. Veronica Muse APRN.SUSANA Allergies As of Date: 03/16/2025 Noted Allergy [...] Encounter Status:Closed by BELA MARTINEZ on 03/19/25 [facility] CNOVvioleta 03-14-2025 CNOV Office Visit ([facility] ) SHAWANDA BRINK ([id number]) 1 F Date Time Provider Department 03/14/25 8:00 AM CITLALI CEJA [facility] During your visit today, we recorded the following information about you: Weight Height 73.1 kg 1.624 m Citlali Ceja PA-C 03/14/2025 9:13 AM Signed [facility] Date: March 14, 2025 Patient Name: Shawanda Nuñez [place] Referring physician: Issac Fernádnez [address] [facility] [address] Consult requested for headache by Dr. Fernández. Recommendations will be communicated via shared medical record or US mail. Primary physician: Issac Fernández [address] [facility] [place] [address] Reason for Evaluation: Headaches Subjective HPI Shawanda [...] gradual Location: Right sided. Aura: 5-6 times Prodrome:wai4rwo, kaleidsecope lasting 30-45 minuhtes . Accompanying symptoms: [...] or myalgias (more content not included)... Normal [facility] 03-08-2025 [facility] SHAW[facility] BRINK ([id number]) 1 F Date Time Provider Department 03/08/25 [...] and advise, Mark Fan RN PodlogVeronica berger APRN.CNP 03/11/2025 7:50 AM Signed Orders for A1c [...] Fully Assessed Reason for Visit: Patient Question [2162] Primary Visit Diagnosis:Hx of gestational diabetes mellitus, not currently [Z86.32] Order(s):HEMOGLOBIN A1C [RQOHR3Q] Order #: [id number] FUTURE Prescriptions as of 03/11/2025 - FLUoxetine [...] Encounter Status:Closed by [facility] FAN [facility]11/[facility] SHAWANDA BRINK ([id number]) 1 F Date Time Provider Department 03/08/25 [facility] During your visit today, we recorded the [...] await provider's advise. SHERLY Quezada Nishi J, APRN.CHANNELER OUTSOLE 03/08/2025 10:17 AM Signed Please tell the [...] Encounter Status:Closed by QUETA MCCARTY on 03/08/25 [facility] CNOVon 03-05-2025 CNOV Office Visit (FAMPWS ) CUBASHAWANDA M ([id number]) 1 F Date Time Provider Department 03/05/25 11:00 AM VERONICA MUSE During your visit today, we recorded the following information about you: Pulse Respiration Blood pressure Weight 82/minute 18/minute 106/74 74.4 kg Height 1.624 m Veronica Muse APRN.CHANNELER OUTSOLE 03/05/2025 11:27 AM Signed 03/05/2025 Patient presents with: Physical Recording using [employer] software for draft documentation of the visit was discussed with the patient/authorized insurance verification representative; all questions welcomed and answered. 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 Normal [facility] CNOVon 03-03-2025 CNOV Office Visit (WOPRAVIN) SHAWANDA BRINK ([id number]) 1 F Date Time Provider Department 03/03/25 2:30 PM ROHAN VILLALBA During your visit today, we recorded the following information about you: Temperature Pulse Respiration Blood pressure 97.6 degrees 76/minute 20/minute 120/78 Weight Last Period 74 kg 11/04/21 Rohan Villalba APRN.CHANNELER OUTSOLE 03/03/2025 3:08 PM Signed [facility]se Shawanda Brink is [...] agreeable to care plan. and Recording using [employer] software for draft documentation of the visit was discussed with the patient/authorized insurance verification representative; all questions welcomed and answered. Patient/authorized insurance verification representative agreed to proceed MDM Procedures Allergies [...] Diagnosis:Sore throat [J02.9] Order(s):STREP A MOLECULAR (POC) [3389907] Order #: [id number]. #:[id number] CONSULT TO ENT [9008] Order #: [id number]: [address] (PROTONIX) 20 mg [...] Status:Closed by ROHAN VILLALBA on 03/03/25 Normal [facility] STREP A MOLECULAR (POC)on Procedural Control [facility] Strep A (POCT) Negative Negative [facility] CNPNon 02-22-2025 SUSANAN Telephone (NEMOWS) SHAWANDA BRINK ([id number]) 1 F Date Time Provider Department 02/22/25 CITLALI CEJA During your visit today, we recorded the following information about you: Tessy Chow LPN 02/22/2025 1:21 PM Signed Patient was unaware when they scheduled her appointment it was [place]. Patient was in [place] [facility] waiting area after being checked in for appointment by [facility]. Assisted rescheduling patient for [place]. Tessy Chow LPN Allergies As of Date: 02/22/2025 Noted Allergy Reaction CELEXA (CITALOPRAM) 03/21/2024 14 - Other: See Comments Comments: Tunnel vision LEXAPRO (ESCITALOPRAM) 03/21/2024 2 - Rash Date Reviewed: 02/14/2025 Reviewed by: Jamal Cortez APRN.CHANNELER OUTSOLE - Fully Assessed Reason for Visit: Appointment [...] Encounter Status:Closed by TESSY CHOW on 03/04/25 [facility]io 02-18-2025 [facility] SHAWANDA BRINK ([id number]) 1 F Date Time Provider Department 02/18/25 ISSAC FERNÁNDEZ [facility] During your visit today, we recorded the following information about you: Keli Myers RN 02/18/2025 10:58 AM Signed Nadz with [employer] called wanting the billing codes for the [...] Date Reviewed: 02/14/2025 Reviewed by: Jamal Cortez APRN.CHANNELER OUTSOLE - Fully Assessed Reason for Visit: Billing [...] Status:Closed by KELI MYERS on 02/18/25 Normal [facility] T3 SerPl-mCncon 02-18-2025 T3 [Mass/Vol] 109 ng/dL Normal 79-165 [facility] Comment on above: Order Comment: Speci men Type: BLOOD SPECIMENOrdering Facility: [facility] Address: [address] [place] [address] Performed By: #### 3 053-6, 7 ####[facility] LABCLIA [id number] [place] [address] [place] T4 Free SerPl-mCncon 025 Free T4 [Mass/Vol] 1.3 ng/dL Normal 0.9-1.7 [facility] Comment on above: Order Comment: Speci men Type: BLOOD SPECIMENOrdering Facility: [facility] Address: [address] [place] [address] Performed By: #### 3 053-6, 302-7 ####[facility] LABCLIA [id number] [place] [address] [place] THYROID PEROXIDASE ANTIBODYo n 02-18-2025 TPO Ab Qn [IU]/mL Normal <5.6 [facility] Comment on above: Order Comment: Speci men Type: BLOOD SPECIMENOrdering Facility: [facility] Address: [address] [place] [address] Result Comment: Thyr oid Peroxidase Antibody test is used as an aid in diagnosis of autoimmune thyroid disease. Clinical correlation is required. Performed By: #### M ICRO ####[facility] LABCLIA [id number] [place] [address] [place] CBC W Auto Differential pane l (Bld)on 02-14-2025 Basophils (Bld) [#/Vol] 0.03 10*3/uL [facility] Basophils/100 WBC (Bld) 0.5 % [facility] Differential cell count method Nom (Bld) Auto [facility] Eosinophils (Bld) [#/Vol] 0.08 10*3/uL [facility] Eosinophils/100 WBC (Bld) 1.3 % [facility] Erythrocyte distribution width (RBC) [Ratio] 12 % 11.5 - 15.0 % [facility] Hematocrit (Bld) [Volume fraction] 41.4 % 36.0 - 46.0 % [facility] Hemoglobin (Bld) [Mass/Vol] 14.3 g/dL 11.5 - 15.5 g/dL [facility] Immature granulocytes (Bld) [#/Vol] [facility] Immature granulocytes/100 WBC (Bld) 0.3 % [facility] Lymphocytes (Bld) [#/Vol] 2.47 10*3/uL [facility] Lymphocytes/100 WBC (Bld) 41.3 % [facility] MCH (RBC) [Entitic mass] 29.2 pg 26.0 - 34.[address] [facility] MCHC (RBC) [Mass/Vol] 34.5 g/dL 30.5 - 36.0 g/dL [facility] MCV (RBC) [Entitic vol] 84.7 fL 80.0 - 100.[address] [facility] Monocytes (Bld) [#/Vol] 0.23 10*3/uL [facility] Monocytes/100 WBC (Bld) 3.8 % C [facility] Neutrophils (Bld) [#/Vol] 3.15 10*3/uL [facility] Neutrophils/100 WBC (Bld) 52.8 % [facility] Nucleated RBC (Bld) [#/Vol] NINF [facility] Nucleated RBC/100 WBC (Bld) [Ratio] 0 % /[address] [facility] Platelet mean volume (Bld) [Entitic vol] 10.5 fL 9.0 - 12.[address] [facility] Platelets (Bld) [#/Vol] 304 10*3/uL [facility] RBC (Bld) [#/Vol] 4.89 10*6/uL 3.90 - 5.2 0 m/uL [facility] WBC (Bld) [#/Vol] 5.98 10*3/uL [facility] Basophils (Bld) [#/Vol] 0.03 10*3/uL Normal <0.11 [facility] Comment on above: Order Comment: Speci men Type: BLOOD SPECIMENOrdering Facility: [facility] Address: [address] [place] [address] Performed By: #### 5 7021-8 ####[facility] LABIA [id number] [place] [address] [place] Basophils/100 WBC (Bld) 0.5 % Normal [facility] Comment on above: Order Comment: Speci men Type: BLOOD SPECIMENOrdering Facility: [facility] Address: [address] [place] [address] Performed By: #### 5 7021-8 ####[facility] LABIA [id number] [place] [address] [place] Differential cell count method Nom (Bld) Auto Normal [facility] Comment on above: Order Comment: Speci men Type: BLOOD SPECIMENOrdering Facility: [facility] Address: [address] [place] [address] Performed By: #### 5 7021-8 ####[facility] LABCLIA [id number] [address] [place] [address] [place] Eosinophils (Bld) [#/Vol] 0.08 10*3/uL Normal <0.46 [facility] Comment on above: Order Comment: Speci men Type: BLOOD SPECIMENOrdering Facility: [facility] Address: [address] [place] [address] Performed By: #### 5 7021-8 ####[facility] LABCLIA [id number] [address], [place] [address] [place] Eosinophils/100 WBC (Bld) 1.3 % Normal [facility] Comment on above: Order Comment: Speci men Type: BLOOD SPECIMENOrdering Facility: [facility] Address: [address] [place] [address] Performed By: #### 5 7021-8 ####[facility] LABCLIA [id number] [address], [place] [address] [place] Erythrocyte distribution width (RBC) [Ratio] 12.0 % Normal 11.5-15.0 [facility] Comment on above: Order Comment: Speci men Type: BLOOD SPECIMENOrdering Facility: [facility] Address: [address] [place] [address] Performed By: #### 5 7021-8 ####[facility] LABCLIA [id number] [address], [facility] [place] Hematocrit (Bld) [Volume fraction] 41.4 % Normal 36.0-46.0 [facility] Comment on above: Order Comment: Speci men Type: BLOOD SPECIMENOrdering Facility: [facility] Address: [address] [place] [address] Performed By: #### 5 7021-8 ####[facility] LABCLIA [id number] [address] [place] [address] [place] Hemoglobin (Bld) [Mass/Vol] 14.3 g/dL Normal 11.5-15.5 [facility] Comment on above: Order Comment: Speci men Type: BLOOD SPECIMENOrdering Facility: [facility] Address: [address] [place] [address] Performed By: #### 5 7021-8 ####[facility] LABCLIA [id number] [address] [address] [place] Immature granulocytes (Bld) [#/Vol] 10*3/uL Normal <0.10 [facility] Comment on above: Order Comment: Speci men Type: BLOOD SPECIMENOrdering Facility: [facility] Address: [address] [place] [address] Performed By: #### 5 7021-8 ####[facility] LABCLIA [id number] [place] [address] [place] Immature granulocytes/100 WBC (Bld) 0.3 % Normal [facility] Comment on above: Order Comment: Speci men Type: BLOOD SPECIMENOrdering Facility: [facility] Address: [address] [place] [address] Performed By: #### 5 7021-8 ####[facility] LABCLIA [id number] [place] [address] [place] Lymphocytes (Bld) [#/Vol] 2.47 10*3/uL Normal 1.00-4.00 [facility] Comment on above: Order Comment: Speci men Type: BLOOD SPECIMENOrdering Facility: [facility] Address: [address] [place] [address] Performed By: #### 5 7021-8 ####[facility] LABCLIA [id number] [place] [id number] [place] Lymphocytes/100 WBC (Bld) 41.3 % Normal [facility] Comment on above: Order Comment: Speci men Type: BLOOD SPECIMENOrdering Facility: [facility] Address: [address] [place] [address] Performed By: #### 5 7021-8 ####[facility] [id number] [place] [address] [place] MCH (RBC) [Entitic mass] 29.2 pg Normal 26.0-34.0 [facility] Comment on above: Order Comment: Speci men Type: BLOOD SPECIMENOrdering Facility: [facility] Address: [address] [place] [address] Performed By: #### 5 7021-8 ####[facility] [id number] [place] [address] [place] MCHC (RBC) [Mass/Vol] 34.5 g/dL Normal 30.5-36.0 [facility] Comment on above: Order Comment: Speci men Type: BLOOD SPECIMENOrdering Facility: [facility] Address: [address] [place] [address] Performed By: #### 5 7021-8 ####[facility] [id number] [place] [address] [place] MCV (RBC) [Entitic vol] 84.7 fL Normal 80.0-100.0 C [facility] Comment on above: Order Comment: Speci men Type: BLOOD SPECIMENOrdering Facility: [facility] Address: [address] [place] [address] Performed By: #### 5 7021-8 ####[facility] [id number] [place] [address] [place] Monocytes (Bld) [#/Vol] 0.23 10*3/uL Normal <0.87 [facility] Comment on above: Order Comment: Speci men Type: BLOOD SPECIMENOrdering Facility: [facility] Address: [address] [place] [address] Performed By: #### 5 7021-8 ####[facility] [id number] [id number] [address] [place] Monocytes/100 WBC (Bld) 3.8 % Normal [facility] Comment on above: Order Comment: Speci men Type: BLOOD SPECIMENOrdering Facility: [facility] Address: [address] [place] [address] Performed By: #### 5 7021-8 ####[facility] LABCLIA [id number] [facility] [place] [address] [place] Neutrophils (Bld) [#/Vol] 3.15 10*3/uL Normal 1.45-7.50 [facility] Comment on above: Order Comment: Speci men Type: BLOOD SPECIMENOrdering Facility: [facility] Address: [address] [place] [address] Performed By: #### 5 7021-8 ####[facility] LABCLIA [id number] [place] [address] [place] Neutrophils/100 WBC (Bld) 52.8 % Normal [facility] Comment on above: Order Comment: Speci men Type: BLOOD SPECIMENOrdering Facility: [facility] Address: [address] [place] [address] Performed By: #### 5 7021-8 ####[facility] LABCLIA [id number] [place] [address] [place] Nucleated RBC (Bld) [#/Vol] 10*3/uL Normal <0.01 [facility] Comment on above: Order Comment: Speci men Type: BLOOD SPECIMENOrdering Facility: [facility] Address: [address] [place] [address] Performed By: #### 5 7021-8 ####[facility] LABCLIA [id number] [facility] [place] [address] [place] Nucleated RBC/100 WBC (Bld) [Ratio] 0.0 /100 WBC Normal [facility] Comment on above: Order Comment: Speci men Type: BLOOD SPECIMENOrdering Facility: [facility] Address: [address] [place] [address] Performed By: #### 5 7021-8 ####[facility] LABCLIA [id number] [address] [address] [place] Platelet mean volume (Bld) [Entitic vol] 10.5 fL Normal 9.0-12.7 [facility] Comment on above: Order Comment: Speci men Type: BLOOD SPECIMENOrdering Facility: [facility] Address: [address] [place] [address] Performed By: #### 5 7021-8 ####[facility] LABCLIA [id number] [place] [address] [place] Platelets (Bld) [#/Vol] 304 10*3/uL Normal 150-400 [facility] Comment on above: Order Comment: Speci men Type: BLOOD SPECIMENOrdering Facility: [facility] Address: [address] [place] [address] Performed By: #### 5 7021-8 ####[facility] LABCLIA [id number] [address] [address] [place] RBC (Bld) [#/Vol] 4.89 10*6/uL Normal 3.90-5.20 [facility] Comment on above: Order Comment: Speci men Type: BLOOD SPECIMENOrdering Facility: [facility] Address: [address] [place] [address] Performed By: #### 5 7021-8 ####[facility] LABCLIA [id number] [address] [address] [place] WBC (Bld) [#/Vol] 5.98 10*3/uL Normal 3.70-11.00 [facility] Comment on above: Order Comment: Speci men Type: BLOOD SPECIMENOrdering Facility: [facility] Address: [address] [place] [address] Performed By: #### 5 7021-8 ####[facility] LABCLIA [id number] [facility] [id number], [place] [address] [place] [facility] CNOVon 02-14-2025 CNOV Office Visit (WOUCA) SHAWANDA BRINK ([id number]) 1 F Date Time Provider Department 02/14/25 4:30 PM JAMAL CORTEZ During your visit today, we recorded the following information about you: Temperature Pulse Respiration Blood pressure 97.3 degrees 87/minute 18/minute 135/85 Weight 75.6 kg Jamal Cortez APRN.CHANNELER OUTSOLE 02/14/2025 7:09 PM Signed [facility] Sav[place] Brink is a 19 year old female. [...] unremarkable at (more content not included)... Normal [facility] 02-14-2025 [facility] SHAWANDA BRINK ([id number]) 1 F Date Time Provider Department 02/14/25 [facility] During your visit today, we recorded [...] Status:Closed by BELA MARTINEZ on 02/14/25 Normal [facility] Comprehensive metabolic 2000 panelon 02-14-2025 Albumin [Mass/Vol] 4.5 g/dL Normal 3.9-4.9 [facility] Comment on above: Order Comment: Speci eva Type: BLOOD SPECIMENOrdering Facility: [facility] Address: [address] [place] [address] Performed By: #### 2 4323-8 ####[facility] LABCLIA [id number] [place] [address] [place] ALP [Catalytic activity/Vol] 90 U/L Normal 34-123 [facility] Comment on above: Order Comment: Johnyi eva Type: BLOOD SPECIMENOrdering Facility: [facility] Address: [address] [place] [address] Performed By: #### 2 4323-8 ####[facility] LABCLIA [id number] [facility] [address] [place] [address] [place] ALT [Catalytic activity/Vol] 14 U/L Normal 7-38 [facility] Comment on above: Order Comment: Speci men Type: BLOOD SPECIMENOrdering Facility: [facility] Address: [address] [place] [address] Performed By: #### 2 4323-8 ####[facility] LABCLIA [id number] [address], [facility] [place] Anion gap [Moles/Vol] 13 mmol/L Normal 8-15 [facility] Comment on above: Order Comment: Speci men Type: BLOOD SPECIMENOrdering Facility: [facility] Address: [address] [place] [address] Performed By: #### 2 4323-8 ####[facility] LABCLIA [id number] [place] [address] [place] AST [Catalytic activity/Vol] 15 U/L Normal 13-35 [facility] Comment on above: Order Comment: Speci men Type: BLOOD SPECIMENOrdering Facility: [facility] Address: [address] [place] [address] Performed By: #### 2 4323-8 ####[facility] LABCLIA [id number] [place] [address] [place] Bilirubin [Mass/Vol] 0.3 mg/dL Normal 0.2-1.3 [facility] Comment on above: Order Comment: Speci men Type: BLOOD SPECIMENOrdering Facility: [facility] Address: [address] [place], [place] [address] Performed By: #### 2 4323-8 ####[facility] LABCLIA [id number] [place] [address] [place] Calcium [Mass/Vol] 9.6 mg/dL Normal 8.5-10.2 [facility] Comment on above: Order Comment: Speci men Type: BLOOD SPECIMENOrdering Facility: [facility] Address: [address] [place] [id number] Performed By: #### 2 4323-8 ####[facility] LABCLIA [id number] [facility] [address] [address] [address] [place] Chloride [Moles/Vol] 101 mmol/L Normal 98-107 [facility] Comment on above: Order Comment: Speci men Type: BLOOD SPECIMENOrdering Facility: [facility] Address: [address] [place] [address] Performed By: #### 2 4323-8 ####[facility] LABCLIA [id number] [place] [address] [place] CO2 [Moles/Vol] 25 mmol/L Normal 22-30 [facility] Comment on above: Order Comment: Speci men Type: BLOOD SPECIMENOrdering Facility: [facility] Address: [address] [place], [place] [address] Performed By: #### 2 4323-8 ####[facility] LABCLIA [id number] [place] [address] [place] Creatinine [Mass/Vol] 0.71 mg/dL Normal 0.58-0.96 [facility] Comment on above: Order Comment: Speci men Type: BLOOD SPECIMENOrdering Facility: [facility] Address: [address] [place] [id number] Performed By: #### 2 4323-8 ####[facility] LABCLIA [id number] [place] [id number] [place] eGFRcr SerPlBld CKD-EPI 2020 124 mL/min/1.73m??? Normal >=60 [facility] Comment on above: Order Comment: Speci men Type: BLOOD SPECIMENOrdering Facility: [facility] Address: [address] [place], [place] [address] Result Comment: Lizzy mated Glomerular Filtration Rate [...] actual GFR. Performed By: #### 2 4323-8 ####[facility] LABIA [id number] [place] [address] [place] Glucose [Mass/Vol] 72 mg/dL Low 74-99 [facility] Comment on above: Order Comment: Isaiah velasquez Type: BLOOD SPECIMENOrdering Facility: [facility] Address: [address] [place] [address] Result Comment: The [place] Diabetes [employer] (ADA) provides guidance for cutoff [...] Standards of Medical Care in Diabetes 2016, [place] [employer]. Diabetes Care. 2016.39(Suppl 1). Performed By: #### 2 4323-8 ####[facility] LABIA [id number] [place] [address] [place] Potassium [Moles/Vol] 4.1 mmol/L Normal 3.7-5.1 [facility] Comment on above: Order Comment: Isaiah velasquez Type: BLOOD SPECIMENOrdering Facility: [facility] Address: [address] [place] [address] Performed By: #### 2 4323-8 ####[facility] LABIA [id number] [place] [address] [place] Protein [Mass/Vol] 7.5 g/dL Normal 6.3-8.0 [facility] Comment on above: Order Comment: Speci men Type: BLOOD SPECIMENOrdering Facility: [facility] Address: [address] [place] [address] Performed By: #### 2 4323-8 ####[facility] LABCLIA [id number] [place] [address] [place] Sodium [Moles/Vol] 139 mmol/L Normal 136-144 [facility] Comment on above: Order Comment: Speci men Type: BLOOD SPECIMENOrdering Facility: [facility] Address: [address] [place] [address] Performed By: #### 2 4323-8 ####[facility] LABCLIA [id number] [place] [address] [place] Urea nitrogen [Mass/Vol] 11 mg/dL Normal 7-21 [facility] Comment on above: Order Comment: Speci men Type: BLOOD SPECIMENOrdering Facility: [facility] Address: [address] [place] [address] Performed By: #### 2 4323-8 ####[facility] LABCLIA [id number] [place] [address] [place] Heteroph Ab Ser Ql LAon 07-3 Heterophile Ab LA Ql (S) Negative Normal Negative [facility] Comment on above: Order Comment: Speci men Type: BLOOD SPECIMENOrdering Facility: [facility] Address: [address] [place] [address] Result Comment: Infe ctious Mononucleosis rapid test [...] is required. Performed By: #### 5 213-4 ####[facility] LABCLIA [id number] [facility] [place] [address] [place] Heterophile Ab LA Ql (S)Orde red By: Yue Lemus on 02-14-2025 Interpretation and review of laboratory results Normal [facility] MONOTEST, INFECTIOUS MONOOrd ered By: Yue Lemus on 02-14-2025 Heterophile Ab LA Ql (S) Negative Negative [facility] Comment on above: Infectious Mononucle osis rapid [...] such as lymphoma. Clinical correlation is required. KEYANAon 02-10-2025 CNOV Office Visit (WOUCA) SHAWANDA BRINK ([id number]) 1 F Date Time Provider Department 02/10/25 1:00 PM SIERRA ALTAMIRANO During your visit today, we recorded the following information about you: Temperature Pulse Respiration Blood pressure 98.2 degrees 89/minute 18/minute 121/87 Weight 75.7 kg Sierra Altamirano APRN.CHANNELER OUTSOLE 02/10/2025 1:20 PM Signed Make sure to [...] also be helpful for pain. Sierra Altamirano APRN.CHANNELER OUTSOLE 02/10/2025 2:31 PM Signed Subjective Shawanda Brink is a 19 year old female. The history is provided by the patient. No english as a second language teacher was used. HPI Shawanda Brink is a 19 year old female who presents today for CC of headache, sore throat and fever that started Enyd evening and is worsening. She was seen [...] from review of inpatient records: ER record [place] [facility] Thursday 02/08 Systemic symptoms present included: fever [...] discussed and (more content not included)... Normal [facility] STREP A MOLECULAR (POC)on Interpretation and review of laboratory results Abnormal [facility] Procedural Control Valid [facility] Strep A (POCT) Positive Abnormal Negative [facility] Basic Metabolic Profile (BMP )on 02-08-2025 BUN/CRE 13.5 RATIO Normal 10-20 [facility] Comment on above: Performed By: #### L 100.0100, L500.2500 #### [facility] [address] [place], [address] Calcium [Mass/Vol] 9.8 mg/dL Normal 7.6-11.0 [facility] Comment on above: Performed By: #### L 100.0100, L500.2500 #### [facility] [address] [place], [address] Chloride [Moles/Vol] 101 mmol/L Normal 98-108 [facility] Comment on above: Performed By: #### L 100.0100, L500.2500 #### [facility] [address] [place], [address] CO2 [Moles/Vol] 21.7 mmol/L Normal 21.0-32.0 [facility] Comment on above: Performed By: #### L 100.0100, L500.2500 #### [facility] [address] [place], [address] Creatinine [Mass/Vol] 0.71 mg/dL Normal 0.70-1.20 [facility] Comment on above: Performed By: #### L 100.0100, L500.2500 #### [facility] [address] [place], [address] ECRCL 124.18 ml/min Normal 50-250 [facility] Comment on above: Performed By: #### L 100.0100, L500.2500 #### [facility] [address] [place], [address] GAP 13 Normal 5-15 [facility] Comment on above: Performed By: #### L 100.0100, L500.2500 #### [facility] [address] [place], [address] GFR/1.73 sq M.predicted among non-blacks MDRD (S/P/Bld) [Vol rate/Area] 123 mL/min/{1.73_m2} Normal >60 [facility] Comment on above: Result Comment: mL/m in/1.73m2 CKD-EPI Creatinine Equation (2020) Performed By: #### L 100.0100, L500.2500 #### [facility] [address] [place], [address] Glucose [Mass/Vol] 115 mg/dL High 70-99 [facility] Comment on above: Performed By: #### L 100.0100, L500.2500 #### [facility] [address] [place], [address] Potassium [Moles/Vol] 4.0 mmol/L Normal 3.3-5.1 [facility] Comment on above: Performed By: #### L 100.0100, L500.2500 #### [facility] [address] [place], [address] Sodium [Moles/Vol] 136 mmol/L Normal 133-145 [facility] Comment on above: Performed By: #### L 100.0100, L500.2500 #### [facility] [address] [place], [address] Urea nitrogen [Mass/Vol] 10 mg/dL Normal 4-19 [facility] Comment on above: Performed By: #### L 100.0100, L500.2500 #### [facility] [address] [place], [address] CBC W/Diff, Automatedon 07-2 Absolute Lymph 0.66 X10 3/uL Low 0.83-4.51 [facility] Comment on above: Performed By: #### L 100.0100, L500.2500 #### [facility] [address] [place], [address] Absolute Neut 8.0 X10 3/uL High 2.0-7.7 [facility] Comment on above: Performed By: #### L 100.0100, L500.2500 #### [facility] [address] [place], [address] Basophils/100 WBC (Bld) 0.2 % Normal 0-1 [facility] Comment on above: Performed By: #### L 100.0100, L500.2500 #### [facility] [address] [place], [address] Eosinophils/100 WBC (Bld) 0.5 % Normal 0-5 [facility] Comment on above: Performed By: #### L 100.0100, L500.2500 #### [facility] [address] [place], [address] Erythrocyte distribution width (RBC) [Ratio] 12.2 % Normal 11.6-14.6 [facility] Comment on above: Performed By: #### L 100.0100, L500.2500 #### [facility] [address] [place], [address] Hematocrit (Bld) [Volume fraction] 40.9 % Normal 37-47 [facility] Comment on above: Performed By: #### L 100.0100, L500.2500 #### [facility] [address] [place], [address] Hemoglobin (Bld) [Mass/Vol] 14.0 g/dL Normal 12.0-15.0 [facility] Comment on above: Performed By: #### L 100.0100, L500.2500 #### [facility] [address] [place], [address] IG% 0.200 Normal 0.0-0.9 [facility] Comment on above: Result Comment: IG% - Immature Granulocytes (promyelocytes, myelocytes and metamyelocytes) > 1% indicates that a LEFT SHIFT is Present. Performed By: #### L 100.0100, L500.2500 #### [facility] [address] [place], [address] Lymphocytes/100 WBC (Bld) 7.2 % Low 19-41 [facility] Comment on above: Performed By: #### L 100.0100, L500.2500 #### [facility] [address] [place], [address] MCH (RBC) [Entitic mass] 28.9 pg Normal 27.0-32.0 [facility] Comment on above: Performed By: #### L 100.0100, L500.2500 #### [facility] [address] [place], [address] MCHC (RBC) [Mass/Vol] 34.2 g/dL Normal 32-36 [facility] Comment on above: Performed By: #### L 100.0100, L500.2500 #### [facility] [address] [place], [address] MCV (RBC) [Entitic vol] 84.5 fL Normal 81-99 [facility] Comment on above: Performed By: #### L 100.0100, L500.2500 #### [facility] [address] [place], [address] Monocytes/100 WBC (Bld) 4.5 % Normal 0-10 [facility] Comment on above: Performed By: #### L 100.0100, L500.2500 #### [facility] [address] [place], [address] Neutrophils/100 WBC (Bld) 87.4 % High 47-70 [facility] Comment on above: Performed By: #### L 100.0100, L500.2500 #### [facility] [address] [place], [address] Nucleated RBC (Bld) [#/Vol] 0 10*3/uL Normal 0-5 [facility] Comment on above: Performed By: #### L 100.0100, L500.2500 #### [facility] [address] [place], [address] Platelet mean volume (Bld) [Entitic vol] 10.7 fL Normal 6.2-12.0 [facility] Comment on above: Performed By: #### L 100.0100, L500.2500 #### [facility] [address] [place], [address] Platelets (Bld) [#/Vol] 216 10*3/uL Normal 150-450 [facility] Comment on above: Performed By: #### L 100.0100, L500.2500 #### [facility] [address] [place], [address] RBC (Bld) [#/Vol] 4.84 10*6/uL Normal 4.2-5.4 [facility] Comment on above: Performed By: #### L 100.0100, L500.2500 #### [facility] [address] [place], [address] RDW SD 36.9 fl Normal 35.1-43.9 [facility] Comment on above: Performed By: #### L 100.0100, L500.2500 #### [facility] [address] [place], [address] WBC (Bld) [#/Vol] 9.2 10*3/uL Normal 4.4-11.0 [facility] Comment on above: Performed By: #### L 100.0100, L500.2500 #### [facility] [address] [place], [address] Emergency Department Summary on 02-08-2025 Emergency Department Summary [facility] Medical Records Department [address] [place] [address] Emergency Department Summary 02/08/25 MR#: [id number] Acct: [id number] Name: SHAWANDA BRINK Rep #: [id number] : 2005 19 From: Av Wolfe MD PCP: ZOFIA Farr Status:REG ER Location: ED HPI History of [...] any focal neurologic symptoms other than those. [facility] Medical History Former smoker Hx of gestational [...] employed current occupation: Will be starting at [employer] current occupational exposures/hazards: No pets and animals: [...] physical activity do you participate in: none jenni/protestant: Oriental Orthodox seatbelt use: always do you feel safe [...] 90 80 (more content not included)... [facility] Office Visit (WOUCA) SHAWANDA BRINK ([id number]) 1 F Date Time Provider Department 02/07/25 10:30 AM ROHAN VILLALBA During your visit today, we recorded the following information about you: Temperature Pulse Respiration Blood pressure 97.7 degrees 81/minute 18/minute 126/83 Weight 77 kg Rohan Villalba APRN.[facility] 02/07/2025 11:42 AM Signed Subjective Patient ID: Shawanda is a 19 year old female who presents for Ear Problem (Bilateral ear pressure x4 days, head pressure x1 month). The history is provided by the patient. No english as a second language teacher was used. Patient presents to from home [...] PMH - PAST MEDICAL HISTORY OF vascular otoniel left ankle PAST SURGICAL HISTORY Procedure Laterality [...] Maternal Grandmother Cervical Cancer Maternal Grandmother other (IA) Maternal Grandfather 49 other (depression and anxiety) [...] and frontal sinus tenderness present. Mouth/Throat: Lips: [place]. No lesions. Mouth: Mucous membranes are moist. [...] MG-POTASSIUM CLAVULANATE (more content not included)... Normal [facility] MR Brain WO contraston 01-31 IMPRESSION: No evidence of an intracranial acute process. Unremarkable appearance of the cerebral white matter. Disc Pad Grinding Machine Feeder[facility] Transcribe Date/Time: Jan 31 2025 8:48A Dictated by : ISSAC GEIGER MD This examination was interpreted and the report reviewed and electronically signed by: ISSAC GEIGER MD on Jan 31 2025 8:52AM [facility] DIVISION OF RADIOLOGY * * *Final Report* * * DATE OF EXAM: Jan 31 2025 8:30AM [facility] 0294 - MRI BRAIN WO IVCON [...] tissues are unremarkable. DIVISION OF RADIOLOGY Provider, [facility] 01/31/2025 * * *Final Report* * * DATE OF EXAM: Jan 31 2025 8:30AM [facility] 0294 - MRI BRAIN WO IVCON [...] Unremarkable appearance of the cerebral white matter. Disc Pad Grinding Machine Feeder: [facility] Transcribe Date/Time: Jan 31 2025 8:48A Dictated by : ISSAC GEIGER MD This examination was interpreted and the report reviewed and electronically signed by: ISSAC GEIGER MD on Jan 31 2025 8:52AM EST [facility] Radiology Study observation (narrative) [facility] MR Brain WO contrastOrdered By: [facility] Provider on 01-31-[address] [facility] MRI BRAIN WO IVCONon 025 MRI BRAIN WO IVCON * * *Final Report* * * DATE OF EXAM: Jan 31 2025 8:30AM [facility] 0294 - MRI BRAIN WO IVCON / [...] Unremarkable appearance of the cerebral white matter. Disc Pad Grinding Machine Feeder: [facility] Transcribe Date/Time: Jan 31 2025 8:48A Dictated by : ISSAC GEIGER MD This examination was interpreted and the report reviewed and electronically signed by: ISSAC GEIGER MD on Jan 31 2025 8:52AM EST [id number] Normal [facility] CNOVon 01-25-2025 [facility] Office Visit (FAMPWS ) SHAWANDA BRINK ([id number]) 1 F Date Time Provider Department 01/25/25 10:00 AM ISSAC FERNÁNDEZ During your visit today, we recorded the following information about you: Pulse Blood pressure Weight Height 72/minute 120/86 76.8 kg 1.647 m Issac Fernández MD 01/25/2025 10:46 AM Signed Chief Complaint Patient presents with: Follow Up Recording using [employer] software for draft documentation of the visit was discussed with the patient/authorized insurance verification representative; all questions welcomed and answered. 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 Past medical history, appointments, medications, allergies reviewed. Previous Medical History PAST MEDICAL HISTORY Diagnosis Date Acne vulgaris 08/18/2015 Anxiety Bipolar 2 disorder (HCC) Cough variant asthma (HCC) 09/27/2016 Depression Migraines PMH - PAST MEDICAL HISTORY OF vascular otoniel left ankle Previous Surgical History PAST SURGICAL HISTORY Procedure Laterality Date NONE Family History FAMILY HISTORY Problem Relation Age of Onset Ange Disease Mother other (pulmnary embolism) Father other (mass on liver) Father other (depression and anxiety) Maternal Grandmother Cervical Cancer Maternal Grandmother other (IA) Maternal Grandfather 49 other (depression and anxiety) [...] without dila (more content not included)... Normal [facility] 01-11-2025 CNPN Telephone (FAMPWS) SHAWANDA BRINK ([id number]) 1 F Date Time Provider Department 01/11/25 ISSAC FERNÁNDEZ [facility] During your visit today, we recorded [...] 10:12 AM Signed Per provider Veronica Muse MARKETING STRATEGY LEAD, See if they can reschedule the ECHO [...] Fully Assessed Reason for Visit: Patient Question [6443] Prescriptions as of 01/11/2025 - propranolol (INDERAL) [...] Status:Closed by KELI MYERS on 01/11/25 Normal [facility] CBC W Auto Differential pane l (Bld)on 12-28-2024 Basophils (Bld) [#/Vol] 0.04 10*3/uL Normal <0.11 [facility] Comment on above: Order Comment: Speci men Type: BLOOD SPECIMENOrdering Facility: [facility] Address: [address] [place] [address] Performed By: #### 5 7021-8 ####[facility] LABCLIA [id number] [place] [address] [place] Basophils/100 WBC (Bld) 0.5 % Normal [facility] Comment on above: Order Comment: Speci men Type: BLOOD SPECIMENOrdering Facility: [facility] Address: [address] [place] [address] Performed By: #### 5 7021-8 ####[facility] LABCLIA [id number] [place] [address] [place] Differential cell count method Nom (Bld) Auto Normal [facility] Comment on above: Order Comment: Speci men Type: BLOOD SPECIMENOrdering Facility: [facility] Address: [address] [place] [address] Performed By: #### 5 7021-8 ####[facility] LABCLIA [id number] [address], [facility] [place] Eosinophils (Bld) [#/Vol] 0.24 10*3/uL Normal <0.46 [facility] Comment on above: Order Comment: Speci men Type: BLOOD SPECIMENOrdering Facility: [facility] Address: [address] [place] [address] Performed By: #### 5 7021-8 ####[facility] LABCLIA [id number] [place] [address] [place] Eosinophils/100 WBC (Bld) 3.1 % Normal [facility] Comment on above: Order Comment: Speci men Type: BLOOD SPECIMENOrdering Facility: [facility] Address: [address] [place] [address] Performed By: #### 5 7021-8 ####[facility] LABCLIA [id number] [place] [address] [place] Erythrocyte distribution width (RBC) [Ratio] 12.8 % Normal 11.5-15.0 [facility] Comment on above: Order Comment: Speci men Type: BLOOD SPECIMENOrdering Facility: [facility] Address: [address] [place] [address] Performed By: #### 5 7021-8 ####[facility] LABCLIA [id number] [place] [address] [place] Hematocrit (Bld) [Volume fraction] 42.9 % Normal 36.0-46.0 [facility] Comment on above: Order Comment: Speci men Type: BLOOD SPECIMENOrdering Facility: [facility] Address: [address] [place] [address] Performed By: #### 5 7021-8 ####[facility] LABCLIA [id number] [address], [facility] [place] Hemoglobin (Bld) [Mass/Vol] 14.0 g/dL Normal 11.5-15.5 [facility] Comment on above: Order Comment: Speci men Type: BLOOD SPECIMENOrdering Facility: [facility] Address: [address] [place] [address] Performed By: #### 5 7021-8 ####[facility] LABCLIA [id number] [address] [place] [address] [place] Immature granulocytes (Bld) [#/Vol] 10*3/uL Normal <0.10 [facility] Comment on above: Order Comment: Speci men Type: BLOOD SPECIMENOrdering Facility: [facility] Address: [address] [place] [address] Performed By: #### 5 7021-8 ####[facility] LABCLIA [id number] [address], [place] [address] [place] Immature granulocytes/100 WBC (Bld) 0.3 % Normal [facility] Comment on above: Order Comment: Speci men Type: BLOOD SPECIMENOrdering Facility: [facility] Address: [address] [place] [address] Performed By: #### 5 7021-8 ####[facility] LABCLIA [id number] [address], [place] [address] [place] Lymphocytes (Bld) [#/Vol] 2.32 10*3/uL Normal 1.00-4.00 [facility] Comment on above: Order Comment: Speci men Type: BLOOD SPECIMENOrdering Facility: [facility] Address: [address] [place] [address] Performed By: #### 5 7021-8 ####[facility] LABCLIA [id number] [place] [id number] [place] Lymphocytes/100 WBC (Bld) 29.8 % Normal [facility] Comment on above: Order Comment: Speci men Type: BLOOD SPECIMENOrdering Facility: [facility] Address: [address] [place] [address] Performed By: #### 5 7021-8 ####[facility] LABCLIA [id number] [place] [address] [place] MCH (RBC) [Entitic mass] 29.1 pg Normal 26.0-34.0 [facility] Comment on above: Order Comment: Speci men Type: BLOOD SPECIMENOrdering Facility: [facility] Address: [address] [place] [address] Performed By: #### 5 7021-8 ####[facility] LABIA [id number] [place] [address] [place] MCHC (RBC) [Mass/Vol] 32.6 g/dL Normal 30.5-36.0 [facility] Comment on above: Order Comment: Speci men Type: BLOOD SPECIMENOrdering Facility: [facility] Address: [address] [place] [address] Performed By: #### 5 7021-8 ####[facility] [id number] [place] [address] [place] MCV (RBC) [Entitic vol] 89.2 fL Normal 80.0-100.0 [facility] Comment on above: Order Comment: Speci men Type: BLOOD SPECIMENOrdering Facility: [facility] Address: [address] [place] [address] Performed By: #### 5 7021-8 ####[facility]BR[facility] [id number] [place] [address] [place] Monocytes (Bld) [#/Vol] 0.42 10*3/uL Normal <0.87 [facility] Comment on above: Order Comment: Speci men Type: BLOOD SPECIMENOrdering Facility: [facility] Address: [address] [place] [address] Performed By: #### 5 7021-8 ####[facility] LABIA [id number] [address] [place] Monocytes/100 WBC (Bld) 5.4 % Normal [facility] Comment on above: Order Comment: Speci men Type: BLOOD SPECIMENOrdering Facility: [facility] Address: [address] [place] [address] Performed By: #### 5 7021-8 ####[facility] LABCLIA [id number] [address] [address] [place] Neutrophils (Bld) [#/Vol] 4.75 10*3/uL Normal 1.45-7.50 [facility] Comment on above: Order Comment: Speci men Type: BLOOD SPECIMENOrdering Facility: [facility] Address: [address] [place] [address] Performed By: #### 5 7021-8 ####[facility] LABCLIA [id number] [place] [address] [place] Neutrophils/100 WBC (Bld) 60.9 % Normal [facility] Comment on above: Order Comment: Speci men Type: BLOOD SPECIMENOrdering Facility: [facility] Address: [address] [place] [address] Performed By: #### 5 7021-8 ####[facility] LABCLIA [id number] [place] [address] [place] Nucleated RBC (Bld) [#/Vol] 10*3/uL Normal <0.01 [facility] Comment on above: Order Comment: Speci men Type: BLOOD SPECIMENOrdering Facility: [facility] Address: [address] [place] [address] Performed By: #### 5 7021-8 ####[facility] LABCLIA [id number] [place] [address] [place] Nucleated RBC/100 WBC (Bld) [Ratio] 0.0 /100 WBC Normal [facility] Comment on above: Order Comment: Speci men Type: BLOOD SPECIMENOrdering Facility: [facility] Address: [address] [place] [address] Performed By: #### 5 7021-8 ####[facility] LABCLIA [id number] [facility] [address] [place] [address] [place] Platelet mean volume (Bld) [Entitic vol] 11.1 fL Normal 9.0-12.7 [facility] Comment on above: Order Comment: Speci men Type: BLOOD SPECIMENOrdering Facility: [facility] Address: [address] [place] [address] Performed By: #### 5 7021-8 ####[facility] LABCLIA [id number] [facility] [address] [place] [address] [place] Platelets (Bld) [#/Vol] 341 10*3/uL Normal 150-400 [facility] Comment on above: Order Comment: Speci men Type: BLOOD SPECIMENOrdering Facility: [facility] Address: [address] [place] [address] Performed By: #### 5 7021-8 ####[facility] LABIA [id number] [address] [place] [address] [place] RBC (Bld) [#/Vol] 4.81 10*6/uL Normal 3.90-5.20 [facility] Comment on above: Order Comment: Speci men Type: BLOOD SPECIMENOrdering Facility: [facility] Address: [address] [place] [address] Performed By: #### 5 7021-8 ####[facility] LABCLIA [id number] [address] [place] [address] [place] WBC (Bld) [#/Vol] 7.79 10*3/uL Normal 3.70-11.00 [facility] Comment on above: Order Comment: Speci men Type: BLOOD SPECIMENOrdering Facility: [facility] Address: [address] [place] [address] Performed By: #### 5 7021-8 ####[facility] LABIA [id number] [address] [place] [address] [place] Comprehensive metabolic 2000 panelon 12-28-2024 Albumin [Mass/Vol] 4.3 g/dL Normal 3.9-4.9 [facility] Comment on above: Order Comment: Speci men Type: BLOOD SPECIMENOrdering Facility: [facility] Address: [address] [place] [address] Performed By: #### 3 016-3, , 79182-8 ####[facility] LABCLIA [id number] [place] [id number] [place] ALP [Catalytic activity/Vol] 108 U/L Normal 34-123 [facility] Comment on above: Order Comment: Speci men Type: BLOOD SPECIMENOrdering Facility: [facility] Address: [address] [place] [address] Performed By: #### 3 016-3, , 88091-6 ####[facility] LABCLIA [id number] [place] [address] [place] ALT [Catalytic activity/Vol] 13 U/L Normal 7-38 [facility] Comment on above: Order Comment: Speci men Type: BLOOD SPECIMENOrdering Facility: [facility] Address: [address] [place] [address] Performed By: #### 3 016-3, , 99581-3 ####[facility] LABIA [id number] [place] [address] [place] Anion gap [Moles/Vol] 11 mmol/L Normal 8-15 [facility] Comment on above: Order Comment: Speci men Type: BLOOD SPECIMENOrdering Facility: [facility] Address: [address] [place] [address] Performed By: #### 3 016-3, , 96182-7 ####[facility] LABCLIA [id number] [place] [address] [place] AST [Catalytic activity/Vol] 13 U/L Normal 13-35 [facility] Comment on above: Order Comment: Speci men Type: BLOOD SPECIMENOrdering Facility: [facility] Address: [address] [place] [address] Performed By: #### 3 016-3, , ####[facility] LABCLIA [id number] [facility] [place] [address] [place] Bilirubin [Mass/Vol] 0.3 mg/dL Normal 0.2-1.3 [facility] Comment on above: Order Comment: Speci men Type: BLOOD SPECIMENOrdering Facility: [facility] Address: [address] [place] [address] Performed By: #### 3 016-3, , ####[facility] LABCLIA [id number] [place] [address] [place] Calcium [Mass/Vol] 9.7 mg/dL Normal 8.5-10.2 [facility] Comment on above: Order Comment: Speci men Type: BLOOD SPECIMENOrdering Facility: [facility] Address: [address] [place] [address] Performed By: #### 3 016-3, , ####[facility] LABCLIA [id number] [place] [address] [place] Chloride [Moles/Vol] 104 mmol/L Normal 98-107 [facility] Comment on above: Order Comment: Speci men Type: BLOOD SPECIMENOrdering Facility: [facility] Address: [address] [place] [address] Performed By: #### 3 016-3, , ####[facility] LABCLIA [id number] [facility] AVENUEMERCY MEDICAL CENTERK [address] [address] [place] CO2 [Moles/Vol] 25 mmol/L Normal 22-30 [facility] Comment on above: Order Comment: Speci men Type: BLOOD SPECIMENOrdering Facility: [facility] Address: [address] [place], [place] [address] Performed By: #### 3 016-3, , ####[facility] LABCLIA [id number] [address] [address] [place] Creatinine [Mass/Vol] 0.70 mg/dL Normal 0.58-0.96 [facility] Comment on above: Order Comment: Speci men Type: BLOOD SPECIMENOrdering Facility: [facility] Address: [address] [place] [address] Performed By: #### 3 016-3, , ####[facility] LABIA [id number] [place] [address] [place] Creatinine and Glomerular filtration rate.predicted panel (S/P/Bld) 126 mL/min/1.73m??? Normal >=60 [facility] Comment on above: Order Comment: Speci men Type: BLOOD SPECIMENOrdering Facility: [facility] Address: [address] [place] [address] Result Comment: Lizzy mated Glomerular Filtration Rate [...] GFR. Performed By: #### 3 016-3, , ####[facility] LABIA [id number] [address] [address] [place] Glucose [Mass/Vol] 80 mg/dL Normal 74-99 [facility] Comment on above: Order Comment: Speci men Type: BLOOD SPECIMENOrdering Facility: [facility] Address: [address] [place] [address] Result Comment: The [place] [employer] (ADA) provides guidance for cutoff [...] Standards of Medical Care in Diabetes 2016, [place] [employer]. Diabetes Care. 2016.39(Suppl 1). Performed By: #### 3 016-3, 03509-2, ####[facility] LABIA [id number] [place] [address] [place] Potassium [Moles/Vol] 3.9 mmol/L Normal 3.7-5.1 [facility] Comment on above: Order Comment: Speci men Type: BLOOD SPECIMENOrdering Facility: [facility] Address: [address] [place] [address] Performed By: #### 3 016-3, , ####[facility] [id number] [place] [address] [place] Protein [Mass/Vol] 7.5 g/dL Normal 6.3-8.0 [facility] [facility] Comment on above: Order Comment: Speci men Type: BLOOD SPECIMENOrdering Facility: [facility] Address: [address] [place] [address] Performed By: #### 3 016-3, , ####[facility] LABIA [id number] [place] [address] [place] Sodium [Moles/Vol] 140 mmol/L Normal 136-144 [facility] Comment on above: Order Comment: Speci men Type: BLOOD SPECIMENOrdering Facility: [facility] Address: [address] [place] [address] Performed By: #### 3 016-3, 47523-3, 29888-4 ####[facility] LABIA [id number] [place] [id number] [place] Urea nitrogen [Mass/Vol] 14 mg/dL Normal 7-21 [facility] Comment on above: Order Comment: Speci men Type: BLOOD SPECIMENOrdering Facility: [facility] Address: [address] [place] [address] Performed By: #### 3 016-3, 68355-4, 85934-1 ####[facility] [id number] [place] [address] [place] Magnesium SerPl-mCncon 12-28 Magnesium [Mass/Vol] 2.1 mg/dL Normal 1.7-2.3 [facility] Comment on above: Order Comment: Speci men Type: BLOOD SPECIMENOrdering Facility: [facility] Address: [address] [place] [address] Performed By: #### 3 016-3, 79556-8, 64253-3 ####[facility] [id number] [place] [address] [place] TSH SerPl-aCncon 12-28-2024 TSH Qn 1.190 m[IU]/L Normal 0.270-4.200 [facility] Comment on above: Order Comment: Speci men Type: BLOOD SPECIMENOrdering Facility: [facility] Address: [address] [place] [address] Result Comment: If t he patient is , TSH reference range varies by gestational period: First Trimester (weeks 9-12): 0.180-2.990 mIU/L Second Trimester: 0.110-3.980 mIU/L Third Trimester: 0.480-4.710 mIU/L Khoa Hernandez et al. A Practical Approach for the Verifications and Determination of Site- and Trimester-Specific Reference Intervals for Thyroid Function tests in . Thyroid, 2019:29:3:412-420. Macario Choe et al. 2017 Guidelines of the [place] [employer] for the Diagnosis and Management of Thyroid Disease during and the . Thyroid, 2017:27:3:315-389. Performed By: #### 3 016-3, 67645-1, 85665-7 ####[facility] LABERIN [id number] MEREDITH HARRIS [address] STATES OF [facility] CNOVon 12-27-2024 CNOV Office Visit (FAMPWS ) SHAWANDA BRINK ([id number]) 1 F Date Time Provider Department 12/27/24 12:20 PM [facility] During your visit today, we recorded the following information about you: Pulse Blood pressure Weight Height 80/minute 104/84 78 kg 1.647 m Issac Fernández MD 12/27/2024 1:15 PM Signed Chief Complaint Patient presents with: Migraine Tachycardia Recording using [employer] software for draft documentation of the visit was discussed with the patient/authorized insurance verification representative; all questions welcomed and answered. Patient/authorized insurance verification representative agreed to proceed HPI Shawanda Brink [...] of gestational diabetes. - Previous evaluation by [facility] in September or October 2022; no echo performed, only noted low potassium levels. Past medical history, appointments, medications, allergies reviewed. Previous Medical History PAST MEDICAL HISTORY Diagnosis Date Acne vulgaris 08/18/2015 Anxiety Bipolar 2 disorder (HCC) Cough variant asthma (HCC) 09/27/2016 Depression Migraines PMH - PAST MEDICAL HISTORY OF vascular otoniel left ankle Previous Surgical History PAST SURGICAL HISTORY Procedure Laterality Date NONE Family History FAMILY HISTORY Problem Relation Age of Onset Ange Disease Mother other (pulmnary embolism) Father other (mass on liver) Father other (depression and anxiety) Maternal Grandmother Cervical Cancer Maternal Grandmother other (IA) Maternal Grandfather 49 other (depression and anxiety) [...] Abdomen: Normal (more content not included)... Normal [facility] ECG COMPLETEon 12-27-2024 ECG COMPLETE Ventricular Rate : 7 3 BPM Atrial Rate : 73 BPM P-R Interval : 136 ms QRS Duration : 82 ms Q-T Interval : 394 ms QTC Calculation(Bazett) : 434 ms Calculated P Slidell : 41 degrees Calculated R Slidell : 7 degrees Calculated T Slidell : 34 degrees NORMAL SINUS RHYTHM WITH SINUS ARRHYTHMIA NORMAL ECG Confirmed by MD MCCALL QARAB ([id number]) on 12/31/2024 11:01:42 AM NAME : SHAWANDA BRINK PID : [id number] : 2005 Gender : Female Race : ORD : [id number] Procedure Date : Dec 27 2024 12:37:06 Edit Date : Dec 31 2024 11:01:47 Diagnosis: NORMAL SINUS RHYTHM WITH SINUS ARRHYTHMIA NORMAL ECG Confirmed by MD MCCALL QARAB ([id number]) on 12/31/2024 11:01:42 AM Test Reason : R00.2 Palpitations Location : 136 : [place] Overread By : MD MCCALL QARAB Edited By : MD MCCALL QARAB Referred By : , Acquired by : Geovanna CHRISTIANSON [facility] UA DIP,URINE HCG (POC)on Beta HCG ( test) Ql (U) Negative Negative [facility] Comment on above: Location:[facility], [address], [place], [address] Body Recall Instructor (POCT) Internal QC OK [facility] Location:[facility], [address], [place], [address] [facility] POINT OF CARE [facility] CNOVon 11-30-2024 CNOV Office Visit (FAMPWS ) SHAWANDA BRINK ([id number]) 1 F Date Time Provider Department 11/30/24 10:20 AM VERONICA MUSE During your visit today, we recorded the following information about you: Pulse Respiration Blood pressure Weight 66/minute 16/minute 108/86 78.2 kg Veronica Muse APRN.CNP 11/30/2024 10:59 AM Signed 11/30/2024 Patient presents with: Headache: Another that started this AM. Has been having one x8 days Recording using [employer] software for draft documentation of the visit was discussed with the patient/authorized insurance verification representative; all questions welcomed and answered. Patient/authorized insurance verification representative agreed to proceed SUBJECTIVE: This is [...] Bipolar 2 disorder (HCC) Cough variant asthma ([facility]) 09/27/2016 Depression Migraines PMH - PAST MEDICAL HISTORY OF vascular otoniel left ankle ALLERGIES Celexa [Citalopram] and Lexapro [...] verbalizes un (more content not included)... Normal [facility] Gram Stainon 11-09-2024 Reason for Exam: Pel chandrika pain Gram Stain 4+ Gram positive rods No Gram negative diplococci Score = 0 Interpretation: 0-3 Normal, 4-6 Intermediate, 7-10 Positive BV Normal [facility] Comment on above: Performed By: #### L 100.0100, L500.2500 #### [facility] Laboratory [address] 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 Is patient in pain?: Yes (Pelvic and low back) Pain scale (1-10): 3 Allergies No Known Allergies Allergy (Verified 11/09/24 11:49) Medications ???Medication ???Instructions ???Recorded ???Confirmed ???Type NK 11/09/24 11/09/24 History Is last menstrual period known: No Post menopausal: No : Yes [facility] Medical History Former smoker Hx of gestational [...] employed current occupation: Will be starting at [employer] current occupational exposures/hazards: No pets and animals: [...] physical activity do you participate in: none jenni/protestant: Oriental Orthodox seatbelt use: always do you feel safe at home: Yes additional social history: Yaritza- Charlie Valderr[employer] HPI Pelvic lower [...] - full term vacuum 8lbs 8oz Female [facility] Dr Quynh Marie 01/30/24 Charlie 40 live - full term Male [facility] KW Delivery Date: 12/15/22 Last Updated [...] complete senten (more content not included)... Normal [facility] BACTERIAL CULTURE, URINEOrde red By: Marie Becerra on 11-07-2024 Bacteria identified Cx Nom (U) 10,000 -<50,000 CFU/ml Normal urogenital johnathan [facility] Bacteria identified Cx Nom ( U)Ordered By: Marie Becerra on 11-07-[address] [facility] BACTERIAL VAGINOSIS NAATon 0 4-22-2025 Interpretation and review of laboratory results Normal [facility] Lactobacillus crispatus+gasseri+jense ed + Gardnerella vaginalis + Atopobium vaginae rRNA REYNALDO+probe Ql (Vag fld) Not detected Not detected [facility] Lactobacillus crispatus+gasseri+jense ed + Gardnerella vaginalis + Atopobium vaginae rRNA REYNALDO+probe Ql (Vag fld) Not detected Normal Not detected [facility] Comment on above: Order Comment: Speci men Type: SWABOrdering Facility: [facility] Address: [address] [place] [address] Performed By: #### B VAMP, CVTV ####[facility] LABCLIA [id number] [place] [address] [place] Bacteria Ur Culton Bacteria identified Cx Nom (U) ORGANISM ID: 1 10,000 -<50,000 CFU/ml Normal urogenital johnathan Normal [facility] Comment on above: Performed By: #### 6 30-4 ####[facility] LABCLIA [id number] [place] [address] [place] CRISTEL/TRICHOMONAS NAATon 0 11-06-2024 C. glabrata RNA REYNALDO+probe Ql (Vag fld) Not detected Not detected [facility] Cristel sp DNA REYNALDO+probe Ql (Vag fld) Not detected Not detected [facility] Comment on above: The Cristel species group target includes C. albicans, C. tropicalis, C. parapsilosis, and C. dubliniensis. Interpretation and review of laboratory results Normal [facility] T. vaginalis DNA REYNALDO+probe Ql (Unsp spec) Not detected Not detected [facility] C. glabrata RNA REYNALDO+probe Ql (Vag fld) Not detected Normal Not detected [facility] Comment on above: Order Comment: Speci men Type: SWABOrdering Facility: [facility] Address: [address] [place] [address] Performed By: #### B VAMP, CVTV ####[facility] LABCLIA [id number] [place] [address] OF [place] Cristel sp DNA REYNALDO+probe Ql (Vag fld) Not detected Normal Not detected [facility] Comment on above: Order Comment: Speci men Type: SWABOrdering Facility: [facility] Address: [address] [place] [address] Result Comment: The Cristel species group target includes C. albicans, C. tropicalis, C. parapsilosis, and C. dubliniensis. Performed By: #### B VAMP, CVTV ####[facility] LABCLIA [id number] [address] OF [place] T. vaginalis DNA REYNALDO+probe Ql (Unsp spec) Not detected Normal Not detected [facility] Comment on above: Order Comment: Speci men Type: SWABOrdering Facility: [facility] Address: [address] [place] [address] Performed By: #### B VAMP, CVTV ####[facility] LABCLIA [id number] [address] STATES [place] CNOVon 11-06-2024 CNOV Office Visit (UCWSTR ) SHAWANDA BRINK ([id number]) 1 F Date Time Provider Department 11/06/24 8:45 AM JAMAL CORTEZ RUST During your visit today, we recorded the following information about you: Temperature Pulse Respiration Blood pressure 98.1 degrees 72/minute 16/minute 120/76 Weight 79.2 kg Jamal Cortez APRN.CHANNELER OUTSOLE 11/06/2024 9:31 AM Signed Subjective HPI Nontoxic-appearing [...] PMH - PAST MEDICAL HISTORY OF vascular otoniel left ankle PAST SURGICAL HISTORY Procedure Laterality Date NONE ALLERGIES Celexa [Citalopram] and Lexapro [Escitalopram] MEDICATIONS FLUoxetine (PROZAC) 20 mg capsule Take 1 capsule by mouth once daily. FAMILY HISTORY Problem Relation Age of Onset Ange Disease Mother other (pulmnary embolism) Father other (mass on liver) Father other (depression and anxiety) Maternal Grandmother Cervical Cancer Maternal Grandmother other (IA) Maternal Grandfather 49 other (depression and anxiety) [...] 724.3, I (more content not included)... Normal [facility] UA DIP, URINE (POC)on 2024 BILIRUBIN UA (POCT) Negative Negative [facility] CLARITY UA (POCT) Clear [facility] COLOR UA (POCT) Yellow [facility] GLUCOSE UA (POCT) Negative Negative mg/dL [facility] Hemoglobin Ql (U) Negative Negative [facility] KETONE UA (POCT) Negative Negative mg/dL [facility] LEUKOCYTES UA (POCT) Negative Negative [facility] NITRITE UA (POCT) Negative Negative [facility] PH UA (POCT) 6 4.5 - 8.[address] [facility] Protein Ql (U) Negative Negative mg/dL [facility] SPECIFIC GRAVITY UA (POCT) 1.025 1.005 - 1.[address] [facility] UROBILINOGEN UA (POCT) 0.2 Karin l E.U./dL [facility] Location:[address], [place], [place], [address] [place] [address] [address] [facility] UA DIP,URINE HCG (POC)on Beta HCG ( test) Ql (U) Negative Negative [facility] Comment on above: Location:[address], [place], [address] Body Recall Instructor (POCT) Internal QC OK [facility] Location:[address], [place], [place], [address] [place] [address] [address] [facility] CNNURSEon 11-01-2024 [facility] Nurse Visit (FAMPWS) SHAWANDA BRINK ([id number]) 1 F Date Time Provider Department 11/01/24 8:45 AM [place] NURSE FAMPWS During your visit today, we [...] Encounter Status:Closed by MEENAKSHI SPANGLER on 11/01/24 [facility] 10[facility]29-2024 [facility] SHAW[facility] BRINK ([id number]) 1 F Date Time Provider Department 10/29/24 MAXINE ELLIS PSWSTR During your visit today, we recorded the following information about you: Queta Mccarty LPN 10/29/2024 2:19 PM Signed Labs scanned to chart for you to review. SHIRA Diaz Nishi J, CONTAINER WASHER MACHINE.[facility] 10/29/2024 4:07 PM Signed Reviewed lab [...] Encounter Status:Closed by QUETA MCCARTY on 10/30/24 [facility] SHAWANDA BRINK ([id number]) 1 F Date Time Provider Department 10/23/24 [facility] During your visit today, we recorded the following information about you: Antoinette Burgess RN 10/23/2024 12:12 PM Signed Patient calls and states that she had Hepatitis B titers done at [facility]. Patient reports that titers showed that she [...] 3-DOSE, AGE 20+ YR (ENGERIX-B, RECOMBIVAX HB) [[id number]] Order #: [id number] HEP B VACCINE, 3-DOSE, AGE 20+ YR (ENGERIX-B, RECOMBIVAX HB) [[id number]] Order #: [id number] FUTURE HEP B VACCINE, 3-DOSE, AGE 20+ YR (ENGERIX-B, RECOMBIVAX HB) [[id number]] Order #: [id number] FUTURE Prescriptions as of 10/24/2024 - FLUoxetine (PROZAC) 20 mg capsule Take 1 capsule by mouth once daily. Problem List As Of Date 10/23/2024 Noted Resolved Acne vulgaris [L70.0] 08/18/2015 Mild persistent asthma without complication [J4*09/27/2016 Flat foot [M21.40] 07/20/2017 Influenza vaccine refused [Z28.21] 07/20/2017 Depression [F32.A] 08/04/2021 Generalized anxiety disorder [F41.1] 08/04/2021 Encounter Status:Closed by PAMELA KATZ on 10/24/24 Normal [facility] .Auto Diffon 10-09-2024 Basophil, Absolute 0.1 10 3/mcL Normal 0.0-0.3 [facility] Comment on above: Performed By: #### L IPID, CBC, ANEU, GFR, ADIFF, CMP, HCV1 #### [facility] [address] [place] [address] Basophils/100 WBC (Bld) 0.8 % Normal 0.0-2.5 [facility] Comment on above: Performed By: #### L IPID, CBC, ANEU, GFR, ADIFF, CMP, HCV1 #### [address] [address] Eosinophil, Absolute 0.2 10 3/mcL Normal 0.0-0.7 [facility] Comment on above: Performed By: #### L IPID, CBC, ANEU, GFR, ADIFF, CMP, HCV1 #### [address] [address] Eosinophils/100 WBC (Bld) 3.1 % Normal 0.0-6.0 [facility] Comment on above: Performed By: #### L IPID, CBC, ANEU, GFR, ADIFF, CMP, HCV1 #### [address] [address] Lymphocyte, Absolute 1.3 10 3/mcL Normal 0.9-4.3 [facility] Comment on above: Performed By: #### L IPID, CBC, ANEU, GFR, ADIFF, CMP, HCV1 #### [address] [address] Lymphocytes/100 WBC (Bld) 19.9 % Low 20.0-40.0 [facility] Comment on above: Performed By: #### L IPID, CBC, ANEU, GFR, ADIFF, CMP, HCV1 #### [address] [address] Monocyte, Absolute 0.4 10 3/mcL Normal 0.1-1.4 [facility] Comment on above: Performed By: #### L IPID, CBC, ANEU, GFR, ADIFF, CMP, HCV1 #### [address] [address] Monocytes/100 WBC (Bld) 5.8 % Normal 2.0-13.0 [facility] Comment on above: Performed By: #### L IPID, CBC, ANEU, GFR, ADIFF, CMP, HCV1 #### [address] [address] Neutrophils/100 WBC (Bld) 70.4 % Normal 50.0-75.0 [facility] Comment on above: Performed By: #### L IPID, CBC, ANEU, GFR, ADIFF, CMP, HCV1 #### [address] [address] .GFRon 10-09-2024 GFR/1.73 sq M.predicted among non-blacks MDRD (S/P/Bld) [Vol rate/Area] mL/min/{1.73_m2} Normal [facility] Comment on above: Result Comment: Stages [...] CBC, ANEU, GFR, ADIFF, CMP, HCV1 #### [address] [address] .NEUABSon 10-09-2024 Neutrophil, Absolute 4.7 10 3/mcL Normal 2.3-8.1 [facility] Comment on above: Performed By: #### L IPID, CBC, ANEU, GFR, ADIFF, CMP, HCV1 #### [address] [address] CBCon 10-09-2024 Erythrocyte distribution width (RBC) [Ratio] 13.1 % Normal 11.5-15.5 [facility] Comment on above: Performed By: #### L IPID, CBC, ANEU, GFR, ADIFF, CMP, HCV1 #### [address] [address] Hematocrit (Bld) [Volume fraction] 42.3 % Normal 34.0-46.0 [facility] Comment on above: Performed By: #### L IPID, CBC, ANEU, GFR, ADIFF, CMP, HCV1 #### [place] [address] Hgb 14.2 G/dL Normal 12.0-16.0 [facility] Comment on above: Performed By: #### L IPID, CBC, ANEU, GFR, ADIFF, CMP, HCV1 #### [place] [id number] MCH (RBC) [Entitic mass] 29.2 pg Normal 27.0-33.0 [facility] Comment on above: Performed By: #### L IPID, CBC, ANEU, GFR, ADIFF, CMP, HCV1 #### [place] [address] MCHC 33.6 G/dL Normal 32.0-36.0 [facility] Comment on above: Performed By: #### L IPID, CBC, ANEU, GFR, ADIFF, CMP, HCV1 #### [place] [address] MCV (RBC) [Entitic vol] 86.9 fL Normal 80.0-99.0 [facility] Comment on above: Performed By: #### L IPID, CBC, ANEU, GFR, ADIFF, CMP, HCV1 #### [place] [address] Platelet 297 10 3/mcL Normal 150-450 [facility] Comment on above: Performed By: #### L IPID, CBC, ANEU, GFR, ADIFF, CMP, HCV1 #### [place] [address] Platelet mean volume (Bld) [Entitic vol] 9.2 fL Normal 6.6-10.5 [facility] Comment on above: Performed By: #### L IPID, CBC, ANEU, GFR, ADIFF, CMP, HCV1 #### [place] [address] RBC 4.87 10 6/mcL Normal 4.10-5.30 [facility] Comment on above: Performed By: #### L IPID, CBC, ANEU, GFR, ADIFF, CMP, HCV1 #### [address] [address] WBC 6.7 10 3/mcL Normal 4.5-10.8 [facility] Comment on above: Performed By: #### L IPID, CBC, ANEU, GFR, ADIFF, CMP, HCV1 #### [address] [address] CMPon 10-09-2024 Albumin Level 4.2 G/dL Normal 3.2-4.8 [facility] Comment on above: Performed By: #### L IPID, CBC, ANEU, GFR, ADIFF, CMP, HCV1 #### [place] [address] Albumin/Globulin [Mass ratio] 1.0 {ratio} Normal 0.9-1.6 [facility] Comment on above: Performed By: #### L IPID, CBC, ANEU, GFR, ADIFF, CMP, HCV1 #### [place] [address] ALP [Catalytic activity/Vol] 111 U/L Normal 38-126 [facility] Comment on above: Performed By: #### L IPID, CBC, ANEU, GFR, ADIFF, CMP, HCV1 #### [place] [address] ALT [Catalytic activity/Vol] 12 U/L Normal 10-49 [facility] Comment on above: Performed By: #### L IPID, CBC, ANEU, GFR, ADIFF, CMP, HCV1 #### [place] [address] AST [Catalytic activity/Vol] 11 U/L Normal 8-34 [facility] Comment on above: Performed By: #### L IPID, CBC, ANEU, GFR, ADIFF, CMP, HCV1 #### [place] [address] Bili Total 0.50 mg/dL Normal 0.20-1.20 [facility] Comment on above: Result Comment: Use of this assay is not recommended for patients undergoing treatment with eltrombopag due to the potential for falsely elevated results. Performed By: #### L IPID, CBC, ANEU, GFR, ADIFF, CMP, HCV1 #### [place] [id number] BUN/Creatinine Ratio 12.9 ratio Normal 10.0-22.0 [facility] Comment on above: Performed By: #### L IPID, CBC, ANEU, GFR, ADIFF, CMP, HCV1 #### [place] [id number] Calcium [Mass/Vol] 9.8 mg/dL Normal 8.7-10.4 [facility] Comment on above: Performed By: #### L IPID, CBC, ANEU, GFR, ADIFF, CMP, HCV1 #### [place] [id number] Chloride [Moles/Vol] 106 mmol/L Normal 98-110 [facility] Comment on above: Performed By: #### L IPID, CBC, ANEU, GFR, ADIFF, CMP, HCV1 #### [place] [id number] CO2 [Moles/Vol] 30 mmol/L Normal 22-32 [facility] Comment on above: Performed By: #### L IPID, CBC, ANEU, GFR, ADIFF, CMP, HCV1 #### [place] [id number] Creatinine [Mass/Vol] 0.70 mg/dL Normal 0.50-1.20 [facility] Comment on above: Result Comment: Test ing performed on [employer] analyzer using enzymatic creatinine methodology. Performed By: #### L IPID, CBC, ANEU, GFR, ADIFF, CMP, HCV1 #### [place] [id number] Electrolyte Balance 5.0 mEq/L Normal 4.0-15.0 [facility] Comment on above: Performed By: #### L IPID, CBC, ANEU, GFR, ADIFF, CMP, HCV1 #### [place] [id number] Globulin 4.0 G/dL High 1.5-3.8 [facility] Comment on above: Performed By: #### L IPID, CBC, ANEU, GFR, ADIFF, CMP, HCV1 #### [place] [id number] Glucose [Mass/Vol] 92 mg/dL Normal 70-110 [facility] Comment on above: Performed By: #### L IPID, CBC, ANEU, GFR, ADIFF, CMP, HCV1 #### [place] [id number] Potassium [Moles/Vol] 4.3 mmol/L Normal 3.5-5.0 [facility] Comment on above: Performed By: #### L IPID, CBC, ANEU, GFR, ADIFF, CMP, HCV1 #### [place] [id number] Sodium [Moles/Vol] 141 mmol/L Normal 136-145 [facility] Comment on above: Performed By: #### L IPID, CBC, ANEU, GFR, ADIFF, CMP, HCV1 #### [place] [address] Total Protein 8.2 G/dL Normal 5.7-8.2 [facility] Comment on above: Performed By: #### L IPID, CBC, ANEU, GFR, ADIFF, CMP, HCV1 #### [place] [id number] Urea nitrogen [Mass/Vol] 9.0 mg/dL Normal 8.0-22.0 [facility] Comment on above: Performed By: #### L IPID, CBC, ANEU, GFR, ADIFF, CMP, HCV1 #### [address] [address] HCVon 10-09-2024 Hep C Ab Non-Reactive Normal Non-Reactive [facility] Comment on above: Performed By: #### L IPID, CBC, ANEU, GFR, ADIFF, CMP, HCV1 #### [place] [id number] Hep C Ab Int Normal [facility] Comment on above: Result Comment: Nonr [...] CBC, ANEU, GFR, ADIFF, CMP, HCV1 #### [address] [address] LIPIDon 10-09-2024 Cholesterol [Mass/Vol] 112 mg/dL Normal 50-199 [facility] Comment on above: Result Comment: Chol esterol Reference Interval: Less than 200 Desirable 200-239 Borderline high risk 240 and above High risk Performed By: #### L IPID, CBC, ANEU, GFR, ADIFF, CMP, HCV1 #### [place] [address] Cholesterol in HDL [Mass/Vol] 38 mg/dL Low 40-59 [facility] Comment on above: Performed By: #### L IPID, CBC, ANEU, GFR, ADIFF, CMP, HCV1 #### [place] [id number] Cholesterol in LDL [Mass/Vol] 58 mg/dL Normal 0-129 [facility] Comment on above: Performed By: #### L IPID, CBC, ANEU, GFR, ADIFF, CMP, HCV1 #### [place] [id number] Triglyceride [Mass/Vol] 78 mg/dL Normal 3-149 [facility] Comment on above: Performed By: #### L IPID, CBC, ANEU, GFR, ADIFF, CMP, HCV1 #### [address] [address] OCC (LAB)on 10-09-2024 Occult Blood Fecal Negative Normal Negative [facility] Comment on above: Result Comment: This test utilizes the guaiac fecal blood method, which detects peroxidase activity (heme) indicating bleeding from stomach, small intestine, or large intestine. If bleeding from either upper or lower gastrointestinal tract is a clinical consideration, the [facility] recommends the use of both the guaiac fecal blood test and the Immunochemical fecal blood test. Performed By: #### O CC #### [address] [place], [place] [address] CNOVon 09-12-2024 CN Office Visit (UCWSTR ) SHAWANDA BRINK ([id number]) 1 F Date Time Provider Department 09/12/24 4:45 PM BHARAT MOSHER RUST During your visit today, we recorded the [...] AND RSV PCR, ROUTINE [SQCVFLRS] Order #: [id number]. #:[id number] Prescriptions as of 09/12/2024 - sertraline (ZOLOFT) 100 mg tablet Take 1 tablet by mouth once daily. Problem List As Of Date 09/12/2024 Noted Resolved Acne vulgaris [L70.0] 08/18/2015 Mild persistent asthma without complication [J4*09/27/2016 Flat foot [M21.40] 07/20/2017 Influenza vaccine refused [Z28.21] 07/20/2017 Depression [F32.A] 08/04/2021 Generalized anxiety disorder [F41.1] 08/04/2021 Level of Service: OFFICE/OUTPATIENT ESTABLISHED LOW MDM 20 MIN [99309] Letter Text Encounter Status:Closed by BHARAT MOSHER on 09/12/24 Normal [facility] HBSABon 08-10-2024 Hep B Surf Ab <3.1 Low >=10.0 [facility] Comment on above: Result Comment: 0 [...] Preparation. Performed By: #### H BSAB #### [facility] [address] [place] [address] [facility] CNPN Telephone (PSWSTR) SHAWANDA BRINK ([id number]) 1 F Date Time Provider Department 07/26/24 MAXINE ELLIS PSTR During your visit today, we recorded the following information about you: Queta Mccarty LPN 07/26/2024 2:16 PM Signed Call placed to scheduled VV for patient so refills can be sent to [facility] for Zoloft. VV on 08/14/2024 @ 8:30 Zoloft 50 mg 1 tab PO every day SHIRA Diaz Nishi J, CONTAINER WASHER MACHINE.CHANNELER OUTSOLE 07/26/2024 2:21 PM Signed Noted scheduled follow [...] Encounter Status:Closed by MAXINE ELLIS on 07/26/24 [facility] 06-05-2024 [facility] SHAWANDA BRINK ([id number]) 1 F Date Time Provider Department 06/05/24 [facility] During your visit today, we recorded the following information about you: Tessy Prabhakar LPN 06/05/2024 4:02 PM Signed Pt states her breast is tender, swollen AND painful, she is beginning to develop a rash. She has not checked her temp. Pt is concerned that she has mastitis. Pt is breast feeding. She has tried to contact her GUIDE SETTER but they have not returned her call. No openings avail in primary care the rest of today. Pt asked if she could be seen in . Pt is going to be seen in today. Tessy Prabhakar LPN Allergies As of Date: 06/05/2024 Noted [...] Encounter Status:Closed by TESSY PRABHAKAR on 06/05/24 [facility] CNOVon 05-14-2024 CNOV Office Visit (WSTR ) SHAWANDA BRINK ([id number]) 1 F Date Time Provider Department 05/14/24 11:15 AM SANTOS SOLER RUST During your visit today, we recorded the following information about you: Temperature Pulse Respiration Blood pressure 97.9 degrees 97/minute 18/minute 110/78 Weight 83.8 kg Santos Soler APRN.CHANNELER OUTSOLE 05/14/2024 12:33 PM Signed Subjective HPI HPI Shawandamuna Brink is a 18 year old female [...] PMH - PAST MEDICAL HISTORY OF vascular otoniel left ankle PAST SURGICAL HISTORY Procedure Laterality [...] Maternal Grandmother Cervical Cancer Maternal Grandmother other (IA) Maternal Grandfather 49 other (depression and anxiety) [...] abnormality. Dictated by : MD Santos BURGOS APRN.CHANNELER OUTSOLE Allergies As of Date: 05/14/2024 Noted Allergy [...] Diagnosis:Acute cough [R05.1] Order(s):XR CHEST 2V FRONTAL/LAT [[id number]] Order #: [id number]. #:[id number] amoxicillin-clavulanate potassium (AUGMENTIN) 875-125 mg per tabletTake [...] inhaler Inha (more content not included)... Normal [facility] XR CHEST 2V FRONTAL/LATon XR CHEST [...] tissues: Unremarkable. IMPRESSION: No acute radiographic abnormality. Disc Pad Grinding Machine Feeder[facility] Transcribe Date/Time: May 14 2024 12:07P Dictated by : ALEX CASTRO MD This examination was interpreted and the report reviewed and electronically signed by: ALEX CASTRO MD on May 14 2024 12:07PM EST [id number] Normal [facility] XR Chest PA and Lateralon IMPRESSION: No acute radiographic abnormality. Disc Pad Grinding Machine Feeder: [facility] Transcribe Date/Time: May 14 2024 12:07P [...] Unremarkable. IMPRESSION IMPRESSION: No acute radiographic abnormality. Disc Pad Grinding Machine Feeder: [facility] Transcribe Date/Time: May 14 2024 12:07P Dictated by : ALEX CASTRO MD This examination was interpreted and the report reviewed and electronically signed by: ALEX CASTRO MD on May 14 2024 12:07PM EST [facility] Radiology Study observation (narrative) [facility] XR Chest PA and LateralOrder ed By: Ccf Provider on 05-14-[address] [facility] MR/BMS.BBCon 05-03-2024 MR/BMS.BBC [address] [address] OFFICE VISIT Date of Service: 05/03/24 MR#: [id number] Acct: [id number] Name: SHAWANDA BRINK Rep #: [id number] : 2005 Provider: Lanie Antunez NP Age/Sex: 18/F Location: [facility] Status: Signed Intake Vital Signs 03/15/24 15:59 05/04/24 06:42 Height 5 ft 4.17 in 5 ft 4.17 in Intake Visit 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 Complaint: pumping assessment Allergies No Known Allergies Allergy (Verified 03/15/24 15:59) : Yes [facility] Medical History (Updated 04/12/24 @ 16:42 by [...] employed current occupation: Will be starting at [employer] current occupational exposures/hazards: No pets and animals: [...] physical activity do you participate in: none jenni/protestant: Oriental Orthodox seatbelt use: always do you feel safe at home: Yes additional social history: Aura Valderrama [employer] History 2 Elective abortions Hx Para 1 Spontaneous abortions Hx # Term Pregnancies 2 Ectopic pregnancies Hx # Pregnancies Multiple births # of living children 2 Past Pregnancies Del. Date Name GA/Weeks Outcome Route Bth Weight Gen Labor Lgth Anesthesia Del Locatn Provider FOB 12/15/22 [place] 39 live - full term vacuum 8lbs 8oz Female [facility] Dr Quynh Marie 01/30/24 [place] 40 live - full term Male [facility] KW Delivery Date: 12/15/22 Last Updated [...] normal r (more content not included)... Normal [facility] UA DIP, URINE (POC)on 2023 BILIRUBIN UA (POCT) Negative Negative [facility] CLARITY UA (POCT) [facility] COLOR UA (POCT) Dark yellow [facility] GLUCOSE UA (POCT) Negative Negative mg/dL [facility] Hemoglobin Ql (U) Negative Negative [facility] Interpretation and review of laboratory results Abnormal [facility] KETONE UA (POCT) Negative Negative mg/dL [facility] LEUKOCYTES UA (POCT) Negative Negative [facility] NITRITE UA (POCT) Negative Negative [facility] PH UA (POCT) 6.0 4.5 - 8.[address] [facility] Protein Ql (U) Trace Abnormal Negative mg/dL [facility] SPECIFIC GRAVITY UA (POCT) >=1.030 1.005 - 1.[address] [facility] UROBILINOGEN UA (POCT) 0.2 Karin l E.U./dL [facility] Location:Former[facility], [address] [place] [address], [place], [place], [id number] [place] [address] POINT OF CARE [facility] STREP A MOLECULAR (POC)on Procedural Control Valid [facility] Strep A (POCT) Negative Negative [facility] Chlamydia trachomatis rRNA d etection by probe and target amplification methodOrdered By: Kate uGy on 07-08-2023 C. trachomatis rRNA REYNALDO+probe Ql (Unsp spec) Negative Negative [facility] Culture, urineOrdered By: Estela Guy on 07-08-2023 Bacteria identified Cx Nom (U) Positive [facility] Laboratory - Microbiology an d Antimicrobial susceptibilityOrdered By: Kate Guy on 07-08-2023 N. gonorrhoeae DNA REYNALDO+probe Ql (Unsp spec) Negative Negative [facility] Comment on above: Performed at: =[address] [id number] Director: Ashley Barton MD, Phone: [phone] Thin prep Papanicolaou smear with manual screeningOrdered By: Monisha Vera on 01-07-2023 Genital Culture Gardnerella vaginalis [facility] Culture, urineOrdered By: Leonardo Vera on 01-06-2023 Bacteria identified Cx Nom (U) Positive [facility] Gram stain for investigation of transfusion reactionOrdered By: Monisha Vera on 01-05-2023 Microscopic observation Gram stain Nom (Unsp spec) [facility] Laboratory - Chemistry and C hemistry - challengeon 01-04-2023 Bilirubin Ql (U) Negative [facility] Glucose Ql (U) Negative [facility] Ketones Ql (U) Negative [facility] pH (U) 5.0 [pH] [facility] Specific gravity (U) [Rel density] 1.010 [facility] Urobilinogen (U) [Mass/Vol] Negative [facility] Laboratory - Hematology and Cell countson 01-04-2023 Hemoglobin Ql (U) Negative [facility] Laboratory - Specimen inform ationon 01-04-2023 Clarity (U) Clear [facility] Color (U) YELLOW [facility] Laboratory - Urinalysison Nitrite Ql (U) Negative [facility] Protein Ql (U) Negative [facility] No Panel Informationon 01-04 Urine Leukocytes Positive [facility] Urine Non-Hemolyzed Blood [facility] Absolute lymphocyte countOrd ered By: Dr. Ochoa on 12-16-2022 Lymphocytes Auto (Unsp spec) [#/Vol] 1.00 10*3/uL 0.83-4.51 [facility] Basophil percentageOrdered B y: Dr. Ochoa on 12-16-2022 Basophils/100 WBC (Bld) 0.2 % 0-1 [facility] Eosinophils/100 WBC (Bld) 0.6 % 0-5 [facility] Neutrophils (Bld) [#/Vol] 10.1 10*3/uL 2.0-7.7 [facility] Neutrophils/100 WBC (Bld) 84.7 % 47-70 [facility] WBC (Bld) [#/Vol] 11.9 10*3/uL 4.4-11.0 [facility] Blood erythrocytes count (nu mber/volume)Ordered By: Dr. Ochoa on 12-16-2022 RBC (Bld) [#/Vol] 2.85 10*6/uL 4.2-5.4 [facility] Blood hemoglobin measurement (mass/volume)Ordered By: Dr. Ochoa on 12-16-2022 Hemoglobin (Bld) [Mass/Vol] 8.1 g/dL 12.0-15.0 [facility] Blood lymphocytes/100 leukoc ytesOrdered By: Dr. Ochoa on 12-16-2022 Lymphocytes/100 WBC (Bld) 8.4 % 19-41 [facility] Blood monocytes/100 leukocyt esOrdered By: Dr. Ochoa on 12-16-2022 Monocytes/100 WBC (Bld) 5.5 % 0-10 [facility] Blood platelet mean volumeOr dered By: Dr. Ochoa on 12-16-2022 Platelet mean volume (Bld) [Entitic vol] 10.3 fL 6.2-12.0 [facility] Determination of erythrocyte mean corpuscular volume (MCV)Ordered By: Dr. Ochoa on 12-16-2022 MCV (RBC) [Entitic vol] 89.5 fL 81-99 [facility] Glucose Glucometer (BldC) [M ass/Vol]Ordered By: Dr. Cameron on 12-16-2022 Glucose [Mass/Vol] 66 mg/dL 74-106 [facility] Comment on above: MANAGEMENT OF PATIEN T CARE PER NURSING PROTOCOL Hematocrit Auto (Bld) [Volum e fraction]Ordered By: Dr. Ochoa on 12-16-2022 Hematocrit (Bld) [Volume fraction] 25.5 % 37-47 [facility] Laboratory - Hematology and Cell countsOrdered By: Dr. Ochoa on 12-16-2022 Erythrocyte distribution width (RBC) [Entitic vol] 45.6 fL 35.1-43.9 [facility] Erythrocyte distribution width (RBC) [Ratio] 14.1 % 11.6-14.6 [facility] Immature granulocytes/100 WBC (Bld) 0.600 % 0.0-0.9 [facility] Comment on above: IG% - Immature Granu locytes (promyelocytes, myelocytes and metamyelocytes) > 1% indicates that a LEFT SHIFT is Present. MCH (RBC) [Entitic mass] 28.4 pg 27.0-32.0 [facility] Nucleated RBC/100 WBC (Bld) [Ratio] 0 % 0-5 [facility] MCHC Auto (RBC) [Mass/Vol]Or dered By: Dr. Ochoa on 12-16-2022 MCHC (RBC) [Mass/Vol] 31.8 g/dL 32-36 [facility] Platelets bldOrdered By: Dr. Ochoa on 12-16-2022 Platelets (Bld) [#/Vol] 156 10*3/uL 150-450 [facility] Absolute lymphocyte countOrd ered By: Dr. Cameron on 12-15-2022 Lymphocytes Auto (Unsp spec) [#/Vol] 0.60 10*3/uL 0.83-4.51 [facility] Basophil percentageOrdered B y: Dr. Cameron on 12-15-2022 Basophils/100 WBC (Bld) 0.3 % 0-1 [facility] Eosinophils/100 WBC (Bld) 0.1 % 0-5 [facility] Neutrophils (Bld) [#/Vol] 17.3 10*3/uL 2.0-7.7 [facility] Neutrophils/100 WBC (Bld) 91.2 % 47-70 [facility] WBC (Bld) [#/Vol] 19.0 10*3/uL 4.4-11.0 [facility] Blood erythrocytes count (nu mber/volume)Ordered By: Dr. Cameron on 12-15-2022 RBC (Bld) [#/Vol] 3.63 10*6/uL 4.2-5.4 [facility] Blood hemoglobin measurement (mass/volume)Ordered By: Dr. Cameron on 12-15-2022 Hemoglobin (Bld) [Mass/Vol] 10.5 g/dL 12.0-15.0 [facility] Blood lymphocytes/100 leukoc ytesOrdered By: Dr. Cameron on 12-15-2022 Lymphocytes/100 WBC (Bld) 3.2 % 19-41 [facility] Blood manual differential co mment interpretation (narrative result)Ordered By: Dr. Cameron on 12-15-2022 Manual differential comment Tony (Bld) [Interp] SCANNED [facility] Blood monocytes/100 leukocyt esOrdered By: Dr. Cameron on 12-15-2022 Monocytes/100 WBC (Bld) 4.7 % 0-10 [facility] Blood platelet mean volumeOr dered By: Dr. Cameron on 12-15-2022 Platelet mean volume (Bld) [Entitic vol] 11.0 fL 6.2-12.0 [facility] Determination of erythrocyte mean corpuscular volume (MCV)Ordered By: Dr. Cameron on 12-15-2022 MCV (RBC) [Entitic vol] 87.6 fL 81-99 [facility] Glucose Glucometer (BldC) [M ass/Vol]Ordered By: Dr. Cameron on 12-15-2022 Glucose [Mass/Vol] 89 mg/dL 74-106 [facility] Comment on above: MANAGEMENT OF PATIEN T CARE PER NURSING PROTOCOL Hematocrit Auto (Bld) [Volum e fraction]Ordered By: Dr. Cameron on 12-15-2022 Hematocrit (Bld) [Volume fraction] 31.8 % 37-47 [facility] Laboratory - Hematology and Cell countsOrdered By: Dr. Cameron on 12-15-2022 Erythrocyte distribution width (RBC) [Entitic vol] 43.9 fL 35.1-43.9 [facility] Erythrocyte distribution width (RBC) [Ratio] 13.8 % 11.6-14.6 [facility] Immature granulocytes/100 WBC (Bld) 0.500 % 0.0-0.9 [facility] Comment on above: IG% - Immature Granu locytes (promyelocytes, myelocytes and metamyelocytes) > 1% indicates that a LEFT SHIFT is Present. MCH (RBC) [Entitic mass] 28.9 pg 27.0-32.0 [facility] Nucleated RBC/100 WBC (Bld) [Ratio] 0 % 0-5 [facility] MCHC Auto (RBC) [Mass/Vol]Or dered By: Dr. Cameron on 12-15-2022 MCHC (RBC) [Mass/Vol] 33.0 g/dL 32-36 [facility] Platelets bldOrdered By: Dr. Cameron on 12-15-2022 Platelets (Bld) [#/Vol] 179 10*3/uL 150-450 [facility] Serum Treponema species anti body detectionOrdered By: Kate Guy on 12-13-2022 Treponema sp Ab Ql (S) Non-Reactive [facility] Laboratory - Chemistry and C hemistry - challengeon 12-10-2022 Glucose Ql (U) Negative [facility] Laboratory - Urinalysison Protein Ql (U) Negative [facility] Laboratory - Chemistry and C hemistry - challengeon 12-07-2022 Glucose Ql (U) Negative [facility] Laboratory - Urinalysison Protein Ql (U) Negative [facility] No Panel InformationOrdered By: Dr. Ochoa on 12-04-2022 Group B Streptococcus Culture Streptococcus agalactiae (B) [facility] Laboratory - Chemistry and C hemistry - challengeon 11-29-2022 Glucose Ql (U) Negative [facility] Laboratory - Urinalysison Protein Ql (U) Negative [facility] Laboratory - Chemistry and C hemistry - challengeon 11-23-2022 Glucose Ql (U) Negative [facility] Laboratory - Urinalysison Protein Ql (U) Negative [facility] Laboratory - Chemistry and C hemistry - challengeon 11-16-2022 Glucose Ql (U) Negative [facility] Laboratory - Hematology and Cell countson 11-16-2022 HbA1c (Bld) [Mass fraction] 5.7 % 4.2-6.3 [facility] Laboratory - Urinalysison Protein Ql (U) Negative [facility] Laboratory - Chemistry and C hemistry - challengeon 11-11-2022 Glucose Ql (U) Negative [facility] Laboratory - Urinalysison Protein Ql (U) Negative [facility] Basophil percentageOrdered B y: Dr. Cameron on 11-10-2022 Basophil percentage 0 SEEN /hpf 0-5 [facility] WBC (Bld) [#/Vol] 11.9 10*3/uL 4.4-11.0 [facility] Bilirubin Test strip Ql (U)O rdered By: Dr. Cameron on 11-10-2022 Bilirubin Ql (U) Negative Negative [facility] Blood erythrocytes count (nu mber/volume)Ordered By: Dr. Cameron on 11-10-2022 RBC (Bld) [#/Vol] 3.93 10*6/uL 4.2-5.4 [facility] Blood hemoglobin measurement (mass/volume)Ordered By: Dr. Cameron on 11-10-2022 Hemoglobin (Bld) [Mass/Vol] 11.8 g/dL 12.0-15.0 [facility] Blood platelet mean volumeOr dered By: Dr. Cameron on 11-10-2022 Platelet mean volume (Bld) [Entitic vol] 10.6 fL 6.2-12.0 [facility] Determination of erythrocyte mean corpuscular volume (MCV)Ordered By: Dr. Cameron on 11-10-2022 MCV (RBC) [Entitic vol] 90.3 fL 81-99 [facility] Hematocrit Auto (Bld) [Volum e fraction]Ordered By: Dr. Cameron on 11-10-2022 Hematocrit (Bld) [Volume fraction] 35.5 % 37-47 [facility] Ketones Test strip Ql (U)Ord ered By: Dr. Cameron on 11-10-2022 Ketones Ql (U) Negative Negative [facility] Laboratory - Chemistry and C hemistry - challengeOrdered By: Dr. Cameron on 11-10-2022 ALT [Catalytic activity/Vol] 19 U/L 13-56 [facility] Laboratory - Hematology and Cell countsOrdered By: Dr. Cameron on 11-10-2022 Erythrocyte distribution width (RBC) [Entitic vol] 42.9 fL 35.1-43.9 [facility] Erythrocyte distribution width (RBC) [Ratio] 13.0 % 11.6-14.6 [facility] MCH (RBC) [Entitic mass] 30.0 pg 27.0-32.0 [facility] MCHC Auto (RBC) [Mass/Vol]Or dered By: Dr. Cameron on 11-10-2022 MCHC (RBC) [Mass/Vol] 33.2 g/dL 32-36 [facility] Mucus LM Ql (Urine sed)Order ed By: Dr. Cameron on 11-10-2022 Mucus Ql (Urine sed) 0 SEEN /hpf [facility] Nitrite Test strip Ql (U)Ord ered By: Dr. Cameron on 11-10-2022 Nitrite Ql (U) Negative Negative [facility] No Panel InformationOrdered By: Dr. Cameron on 11-10-2022 Estimated Creatinine Clearance Calc 100.18 ml/min [facility] Estimated GFR (MDRD) Amer 122 mL/min >60 [facility] Comment on above: GFR Calc Estimated GFR (MDRD) Non-Af Amer 101 mL/min >60 [facility] Comment on above: Non- GFR Calc Platelets bldOrdered By: Dr. Cameron on 11-10-2022 Platelets (Bld) [#/Vol] 238 10*3/uL 150-450 [facility] Protein Test strip Ql (U)Ord ered By: Dr. Cameron on 11-10-2022 Protein Ql (U) Negative Negative [facility] Serum or plasma creatinine m easurement (mass/volume)Ordered By: Dr. Cameron on 11-10-2022 Creatinine [Mass/Vol] 0.78 mg/dL 0.55-1.02 [facility] Comment on above: The validity of the calculated GFR & GFRAA in patients over 70 years has not been determined. Clinical correlation is essential. Serum or plasma uric acid me asurement (mass/volume)Ordered By: Dr. Cameron on 11-10-2022 Urate [Mass/Vol] 2.1 mg/dL 2.6-6.0 [facility] Comment on above: The drugs N-Acetylcy steine and Metamizole may falsely depress this assay. Squamous epithelial cells de tection in urine sediment by light microscopyOrdered By: Dr. Cameron on 11-10-2022 Epithelial cells.squamous LM Ql (Urine sed) 0-5 SEEN /hpf 5-10 [facility] Thin prep Papanicolaou smear with manual screeningOrdered By: Dr. Cameron on 11-10-2022 Thin prep Papanicolaou smear with manual screening 10 U/L 15-37 [facility] Urine blood detectionOrdered By: Dr. Cameron on 11-10-2022 RBC Ql (U) Negative Negative [facility] RBC Ql (U) 0 SEEN /hpf 0-5 [facility] Urine clarityOrdered By: Dr. Cameron on 11-10-2022 Clarity (U) Clear Clear [facility] Urine color determinationOrd ered By: Dr. Cameron on 11-10-2022 Color (U) Yellow Yellow [facility] Urine creatinine measurement (mass/volume)Ordered By: Dr. Cameron on 11-10-2022 Creatinine (U) [Mass/Vol] 53.10 mg/dL NO RANGE EST. [facility] Urine glucose detectionOrder ed By: Dr. Cameron on 11-10-2022 Glucose Ql (U) 100 mg/dl Normal [facility] Urine leukocyte esterase det ection by dipstickOrdered By: Dr. Cameron on 11-10-2022 Leukocyte esterase Test strip Ql (U) 25 /ul Negative [facility] Urine pHOrdered By: Dr. Micah choe on 11-10-2022 pH (U) 7.0 [pH] 5.0 - 8.0 [facility] Urine protein measurement (m ass/volume)Ordered By: Dr. Cameron on 11-10-2022 Protein (U) [Mass/Vol] 10.6 mg/dL 0.0-11.8 [facility] Urine protein/creatinine mas s ratioOrdered By: Dr. Cameron on 11-10-2022 Protein/Creatinine (U) [Mass ratio] 200 mg/g CRE 0-200 [facility] Urine sediment bacteria coun t by microscopy (number/high power field)Ordered By: Dr. Cameron on 11-10-2022 Bacteria LM.HPF (Urine sed) [#/Area] 0 /[HPF] None Seen [facility] Urine specific gravity measu rementOrdered By: Dr. Cameron on 11-10-2022 Specific gravity (U) [Rel density] 1.015 1.002-1.030 [facility] Urobilinogen Auto test strip Ql (U)Ordered By: Dr. Cameron on 11-10-2022 Urobilinogen Ql (U) Normal mg/dl Normal [facility] Laboratory - Chemistry and C hemistry - challengeon 11-03-2022 Glucose Ql (U) Negative [facility] Laboratory - Urinalysison Protein Ql (U) Negative [facility] Gestational diabetes screen 1-hour screen with 50g oral glucose loadOrdered By: Monisha Vera on 11-02-2022 Glucose 1 Hr post 50 g glucose PO [Mass/Vol] 201 mg/dL 70-140 [facility] Absolute lymphocyte countOrd ered By: Dr. Cameron on 10-19-2022 Lymphocytes Auto (Unsp spec) [#/Vol] 1.73 10*3/uL 0.83-4.51 [facility] Basophil percentageOrdered B y: Dr. Cameron on 10-19-2022 Basophils/100 WBC (Bld) 0.4 % 0-1 [facility] Eosinophils/100 WBC (Bld) 1.0 % 0-5 [facility] Neutrophils (Bld) [#/Vol] 10.3 10*3/uL 2.0-7.7 [facility] Neutrophils/100 WBC (Bld) 76.9 % 47-70 [facility] WBC (Bld) [#/Vol] 13.4 10*3/uL 4.4-11.0 [facility] Blood erythrocytes count (nu mber/volume)Ordered By: Dr. Cameron on 10-19-2022 RBC (Bld) [#/Vol] 3.92 10*6/uL 4.2-5.4 [facility] Blood hemoglobin measurement (mass/volume)Ordered By: Dr. Cameron on 10-19-2022 Hemoglobin (Bld) [Mass/Vol] 12.0 g/dL 12.0-15.0 [facility] Blood lymphocytes/100 leukoc ytesOrdered By: Dr. Cameron on 10-19-2022 Lymphocytes/100 WBC (Bld) 12.9 % 19-41 [facility] Blood monocytes/100 leukocyt esOrdered By: Dr. Cameron on 10-19-2022 Monocytes/100 WBC (Bld) 6.3 % 0-10 [facility] Blood platelet mean volumeOr dered By: Dr. Cameron on 10-19-2022 Platelet mean volume (Bld) [Entitic vol] 10.6 fL 6.2-12.0 [facility] Determination of erythrocyte mean corpuscular volume (MCV)Ordered By: Dr. Cameron on 10-19-2022 MCV (RBC) [Entitic vol] 91.1 fL 81-99 [facility] HIV 1 and HIV-2 antibody ass ay with HIV-1 p24 antigen detectionOrdered By: Dr. Cameron on 10-19-2022 HIV 1+2 Ab+HIV1 p24 Ag IA Ql Non-Reactive Nonreactive [facility] Hematocrit Auto (Bld) [Volum e fraction]Ordered By: Dr. Cameron on 10-19-2022 Hematocrit (Bld) [Volume fraction] 35.7 % 37-47 [facility] Laboratory - Chemistry and C hemistry - challengeon 10-19-2022 Glucose Ql (U) Negative [facility] Laboratory - Hematology and Cell countsOrdered By: Dr. Cameron on 10-19-2022 Erythrocyte distribution width (RBC) [Entitic vol] 42.9 fL 35.1-43.9 [facility] Erythrocyte distribution width (RBC) [Ratio] 13.1 % 11.6-14.6 [facility] Immature granulocytes/100 WBC (Bld) 2.500 % 0.0-0.9 [facility] Comment on above: IG% - Immature Granu locytes (promyelocytes, myelocytes and metamyelocytes) > 1% indicates that a LEFT SHIFT is Present. MCH (RBC) [Entitic mass] 30.6 pg 27.0-32.0 [facility] Nucleated RBC/100 WBC (Bld) [Ratio] 0 % 0-5 [facility] Laboratory - Urinalysison Protein Ql (U) Negative [facility] MCHC Auto (RBC) [Mass/Vol]Or dered By: Dr. Cameron on 10-19-2022 MCHC (RBC) [Mass/Vol] 33.6 g/dL 32-36 [facility] No Panel InformationOrdered By: Dr. Cameron on 10-19-2022 Hepatitis B Surface Antigen Non-Reactive Nonreactive [facility] Hepatitis C Antibody Non-Reactive Nonreactive [facility] Comment on above: Non Reactive: < 0.8 Equivocal: >/= 0.8 to < 1.0 Reactive: >/= 1.0The CDC recommends that a reactive/equivocal HCV antibody result be followed up by the HCV Nucleic Acid Amplificationtest (060549) Rubella IgG Antibody Reactive Nonreactive [facility] Comment on above: Antibody Results Int erpretation of Immune Status Non Reactive Presumed Non-Immune Equivocal Equivocal Reactive Presumed Immune Platelets bldOrdered By: Dr. Cameron on 10-19-2022 Platelets (Bld) [#/Vol] 269 10*3/uL 150-450 [facility] Serum Treponema species anti body detectionOrdered By: Dr. Cameron on 10-19-2022 Treponema sp Ab Ql (S) Non-Reactive [facility] Laboratory - Chemistry and C hemistry - challengeon 10-04-2022 Glucose Ql (U) Negative [facility] Laboratory - Urinalysison Protein Ql (U) Negative [facility] Laboratory - Chemistry and C hemistry - challengeon 09-22-2022 Glucose Ql (U) Negative [facility] Laboratory - Urinalysison Protein Ql (U) Negative [facility] Laboratory - Chemistry and C hemistry - challengeon 08-17-2022 Glucose Ql (U) Negative [facility] Laboratory - Urinalysison Protein Ql (U) Negative [facility] Laboratory - Chemistry and C hemistry - challengeon 07-20-2022 Glucose Ql (U) Negative [facility] Laboratory - Urinalysison Protein Ql (U) Negative [facility] Absolute lymphocyte countOrd ered By: Dr. Lundy on 07-13-2022 Lymphocytes Auto (Unsp spec) [#/Vol] 1.88 10*3/uL 0.83-4.51 [facility] Basophil percentageOrdered B y: Dr. Lundy on 07-13-2022 Basophil percentage 0-5 SEEN /hpf 0-5 [facility] Basophils/100 WBC (Bld) 0.2 % 0-1 [facility] Chloride [Moles/Vol] 106 mmol/L 98-107 [facility] Eosinophils/100 WBC (Bld) 1.4 % 0-5 [facility] Glucose [Mass/Vol] 77 mg/dL 74-106 [facility] Neutrophils (Bld) [#/Vol] 8.4 10*3/uL 2.0-7.7 [facility] Neutrophils/100 WBC (Bld) 76.2 % 47-70 [facility] Potassium [Moles/Vol] 3.4 mmol/L 3.5-5.1 [facility] Sodium [Moles/Vol] 137 mmol/L 136-145 [facility] WBC (Bld) [#/Vol] 11.1 10*3/uL 4.4-11.0 [facility] Bilirubin Test strip Ql (U)O rdered By: Dr. Lundy on 07-13-2022 Bilirubin Ql (U) Negative Negative [facility] Blood erythrocytes count (nu mber/volume)Ordered By: Dr. Lundy on 07-13-2022 RBC (Bld) [#/Vol] 4.16 10*6/uL 4.2-5.4 [facility] Blood hemoglobin measurement (mass/volume)Ordered By: Dr. Lundy on 07-13-2022 Hemoglobin (Bld) [Mass/Vol] 12.7 g/dL 12.0-15.0 [facility] Blood lymphocytes/100 leukoc ytesOrdered By: Dr. Lundy on 07-13-2022 Lymphocytes/100 WBC (Bld) 17.0 % 19-41 [facility] Blood monocytes/100 leukocyt esOrdered By: Dr. Lundy on 07-13-2022 Monocytes/100 WBC (Bld) 4.9 % 0-10 [facility] Blood platelet mean volumeOr dered By: Dr. Lundy on 07-13-2022 Platelet mean volume (Bld) [Entitic vol] 10.6 fL 6.2-12.0 [facility] Determination of erythrocyte mean corpuscular volume (MCV)Ordered By: Dr. Lundy on 07-13-2022 MCV (RBC) [Entitic vol] 90.9 fL 81-99 [facility] Hematocrit Auto (Bld) [Volum e fraction]Ordered By: Dr. Lundy on 07-13-2022 Hematocrit (Bld) [Volume fraction] 37.8 % 37-47 [facility] Ketones Test strip Ql (U)Ord ered By: Dr. Lundy on 07-13-2022 Ketones Ql (U) Negative Negative [facility] Laboratory - Chemistry and C hemistry - challengeOrdered By: Dr. Lundy on 07-13-2022 CO2 [Moles/Vol] 25.0 mmol/L 21.0-32.0 [facility] Urea nitrogen/Creatinine [Mass ratio] 9.6 mg/mg 10-20 [facility] Laboratory - Hematology and Cell countsOrdered By: Dr. Lundy on 07-13-2022 Erythrocyte distribution width (RBC) [Entitic vol] 40.8 fL 35.1-43.9 [facility] Erythrocyte distribution width (RBC) [Ratio] 12.5 % 11.6-14.6 [facility] Immature granulocytes/100 WBC (Bld) 0.300 % 0.0-0.9 [facility] Comment on above: IG% - Immature Granu locytes (promyelocytes, myelocytes and metamyelocytes) > 1% indicates that a LEFT SHIFT is Present. MCH (RBC) [Entitic mass] 30.5 pg 27.0-32.0 [facility] Nucleated RBC/100 WBC (Bld) [Ratio] 0 % 0-5 [facility] MCHC Auto (RBC) [Mass/Vol]Or dered By: Dr. Lundy on 07-13-2022 MCHC (RBC) [Mass/Vol] 33.6 g/dL 32-36 [facility] Mucus LM Ql (Urine sed)Order ed By: Dr. Lundy on 07-13-2022 Mucus Ql (Urine sed) 0 SEEN /hpf [facility] Nitrite Test strip Ql (U)Ord ered By: Dr. Lundy on 07-13-2022 Nitrite Ql (U) Negative Negative [facility] No Panel InformationOrdered By: Dr. Lundy on 07-13-2022 Estimated Creatinine Clearance Calc 124.03 ml/min [facility] Estimated GFR (MDRD) Amer 158 mL/min >60 [facility] Comment on above: GFR Calc Estimated GFR (MDRD) Non-Af Amer 130 mL/min >60 [facility] Comment on above: Non- GFR Calc Platelets bldOrdered By: Dr. Lundy on 07-13-2022 Platelets (Bld) [#/Vol] 290 10*3/uL 150-450 [facility] Protein Test strip Ql (U)Ord ered By: Dr. Lundy on 07-13-2022 Protein Ql (U) Negative Negative [facility] Serum or plasma calcium marian urement (mass/volume)Ordered By: Dr. Lundy on 07-13-2022 Calcium [Mass/Vol] 8.8 mg/dL 8.5-10.1 [facility] Serum or plasma choriogonado tropin detectionOrdered By: Dr. Lundy on 07-13-2022 HCG ( [place] [address] mIU/mL <4 [facility] Comment on above: hCG levels with Gest ational AgeGestational Age hCG mIU/mL (IU/L)0.2 - 1 week 5 - 501-2 weeks 50 - 5002-3 weeks 100 - 62108-9 weeks 500 - 212720-1 weeks 1000 - 375831-9 weeks 28330 - 100,0006-8 weeks 09537 - 200,0002-3 months 98412 - 100,000 Serum or plasma creatinine m easurement (mass/volume)Ordered By: Dr. Lundy on 07-13-2022 Creatinine [Mass/Vol] 0.63 mg/dL 0.55-1.02 [facility] Comment on above: The validity of the calculated GFR & GFRAA in patients over 70 years has not been determined. Clinical correlation is essential. Serum or plasma urea nitroge n measurement (mass/volume)Ordered By: Dr. Lundy on 07-13-2022 Urea nitrogen [Mass/Vol] 6 mg/dL 7-18 [facility] Squamous epithelial cells de tection in urine sediment by light microscopyOrdered By: Dr. Lundy on 07-13-2022 Epithelial cells.squamous LM Ql (Urine sed) 0-5 SEEN /hpf 5-10 [facility] Thin prep Papanicolaou smear with manual screeningOrdered By: Dr. Lundy on 07-13-2022 Thin prep Papanicolaou smear with manual screening 6 5-15 [facility] Urine blood detectionOrdered By: Dr. Lundy on 07-13-2022 RBC Ql (U) Negative Negative [facility] RBC Ql (U) 0 SEEN /hpf 0-5 [facility] Urine clarityOrdered By: Dr. Lundy on 07-13-2022 Clarity (U) Clear Clear [facility] Urine color determinationOrd ered By: Dr. Lundy on 07-13-2022 Color (U) Straw Yellow [facility] Urine glucose detectionOrder ed By: Dr. Lundy on 07-13-2022 Glucose Ql (U) Normal mg/dl Normal [facility] Urine leukocyte esterase det ection by dipstickOrdered By: Dr. Lundy on 07-13-2022 Leukocyte esterase Test strip Ql (U) 25 /ul Negative [facility] Urine pHOrdered By: Dr. William barron on 07-13-2022 pH (U) 7.0 [pH] 5.0 - 8.0 [facility] Urine sediment bacteria coun t by microscopy (number/high power field)Ordered By: Dr. Lundy on 07-13-2022 Bacteria LM.HPF (Urine sed) [#/Area] 0 /[HPF] None Seen [facility] Urine specific gravity measu rementOrdered By: Dr. Lundy on 07-13-2022 Specific gravity (U) [Rel density] 1.010 1.002-1.030 [facility] Urobilinogen Auto test strip Ql (U)Ordered By: Dr. Lundy on 07-13-2022 Urobilinogen Ql (U) Normal mg/dl Normal [facility] Culture, urineOrdered By: Dr Quynh Cameron on 05-15-2022 Bacteria identified Cx Nom (U) Positive [facility] Chlamydia trachomatis rRNA d etection by probe and target amplification methodOrdered By: Dr. Cameron on 05-13-2022 C. trachomatis rRNA REYNALDO+probe Ql (Unsp spec) Negative Negative [facility] Laboratory - Drug toxicology Ordered By: Dr. Cameron on 05-13-2022 Amphetamines Ql (U) Negative <1000 ng/mL [facility] Benzodiazepines Ql (U) Negative < 200 ng/mL [facility] Cannabinoids Screen Ql (U) Negative < 50 ng/mL [facility] Cocaine Ql (U) Negative < 300 ng/mL [facility] Opiates Ql (U) Negative < 300 ng/mL [facility] Laboratory - Microbiology an d Antimicrobial susceptibilityOrdered By: Dr. Cameron on 05-13-2022 N. gonorrhoeae DNA REYNALDO+probe Ql (Unsp spec) Negative Negative [facility] Comment on above: Performed at: =[address] [id number] Director: Ashley Barton MD, Phone: [phone] No Panel InformationOrdered By: Dr. Cameron on 05-13-2022 MDMA (Ecstasy) Screen Negative < 500 ng/mL [facility] Urine Barbiturates Screen Negative < 200 ng/mL [facility] Urine Drug Screen Comment [facility] Comment on above: CONFIRMATORY TESTING FOR ALL [...] Urine Methadone Screen Negative < 300 ng/mL [facility] Urine phencyclidine (PCP) de tectionOrdered By: Dr. Cameron on 05-13-2022 Phencyclidine Ql (U) Negative < 25 ng/mL [facility] Absolute lymphocyte countOrd ered By: ED PROVIDER on 04-29-2022 Lymphocytes Auto (Unsp spec) [#/Vol] 2.66 10*3/uL 0.83-4.51 [facility] Basophil percentageOrdered B y: ED PROVIDER on 04-29-2022 Basophils/100 WBC (Bld) 0.3 % 0-1 [facility] Chloride [Moles/Vol] 107 mmol/L 98-107 [facility] Eosinophils/100 WBC (Bld) 2.6 % 0-3 [facility] Glucose [Mass/Vol] 84 mg/dL 74-106 [facility] Neutrophils (Bld) [#/Vol] 5.9 10*3/uL 2.0-7.7 [facility] Neutrophils/100 WBC (Bld) 62.6 % 34-64 [facility] Potassium [Moles/Vol] 3.6 mmol/L 3.5-5.1 [facility] Sodium [Moles/Vol] 139 mmol/L 136-145 [facility] WBC (Bld) [#/Vol] 9.5 10*3/uL 4.5-13.0 [facility] Blood erythrocytes count (nu mber/volume)Ordered By: ED PROVIDER on 04-29-2022 RBC (Bld) [#/Vol] 4.70 10*6/uL 4.1-4.8 [facility] Blood hemoglobin measurement (mass/volume)Ordered By: ED PROVIDER on 04-29-2022 Hemoglobin (Bld) [Mass/Vol] 14.2 g/dL 12.0-15.0 [facility] Blood lymphocytes/100 leukoc ytesOrdered By: ED PROVIDER on 04-29-2022 Lymphocytes/100 WBC (Bld) 28.1 % 25-45 [facility] Blood monocytes/100 leukocyt esOrdered By: ED PROVIDER on 04-29-2022 Monocytes/100 WBC (Bld) 6.0 % 3-6 [facility] Blood platelet mean volumeOr dered By: ED PROVIDER on 04-29-2022 Platelet mean volume (Bld) [Entitic vol] 10.3 fL 6.2-12.0 [facility] Determination of erythrocyte mean corpuscular volume (MCV)Ordered By: ED PROVIDER on 04-29-2022 MCV (RBC) [Entitic vol] 90.9 fL 78-96 [facility] Hematocrit Auto (Bld) [Volum e fraction]Ordered By: ED PROVIDER on 04-29-2022 Hematocrit (Bld) [Volume fraction] 42.7 % 37-46 [facility] Laboratory - Chemistry and C hemistry - challengeOrdered By: ED PROVIDER on 04-29-2022 CO2 [Moles/Vol] 26.0 mmol/L 21.0-32.0 [facility] Urea nitrogen/Creatinine [Mass ratio] 8.5 mg/mg 10-20 [facility] Laboratory - Hematology and Cell countsOrdered By: ED PROVIDER on 04-29-2022 Erythrocyte distribution width (RBC) [Entitic vol] 41.7 fL 35.1-43.9 [facility] Erythrocyte distribution width (RBC) [Ratio] 12.6 % 11.6-14.6 [facility] Immature granulocytes/100 WBC (Bld) 0.400 % 0.0-0.9 [facility] Comment on above: IG% - Immature Granu locytes (promyelocytes, myelocytes and metamyelocytes) > 1% indicates that a LEFT SHIFT is Present. MCH (RBC) [Entitic mass] 30.2 pg 25.0-35.0 [facility] Nucleated RBC/100 WBC (Bld) [Ratio] 0 % 0-5 [facility] MCHC Auto (RBC) [Mass/Vol]Or dered By: ED PROVIDER on 04-29-2022 MCHC (RBC) [Mass/Vol] 33.3 g/dL 32-36 [facility] No Panel InformationOrdered By: ED PROVIDER on 04-29-2022 Estimated Creatinine Clearance Calc 117.28 ml/min [facility] Estimated GFR (MDRD) Amer 138 mL/min >60 [facility] Comment on above: GFR Calc Estimated GFR (MDRD) Non-Af Amer 114 mL/min >60 [facility] Comment on above: Non- GFR Calc Platelets bldOrdered By: ED PROVIDER on 04-29-2022 Platelets (Bld) [#/Vol] 359 10*3/uL 150-450 [facility] Serum or plasma calcium marian urement (mass/volume)Ordered By: ED PROVIDER on 04-29-2022 Calcium [Mass/Vol] 9.1 mg/dL 8.5-10.1 [facility] Serum or plasma choriogonado tropin detectionOrdered By: ED PROVIDER on 04-29-2022 HCG ( test) Ql 4556 mIU/mL <4 [facility] Comment on above: hCG levels with Gest ational AgeGestational Age hCG mIU/mL (IU/L)0.2 - 1 week 5 - 501-2 weeks 50 - 5002-3 weeks 100 - 46811-5 weeks 500 - 502410-5 weeks 1000 - 630810-7 weeks 15554 - 100,0006-8 weeks 63442 - 200,0002-3 months 47715 - 100,000 Serum or plasma creatinine m easurement (mass/volume)Ordered By: ED PROVIDER on 04-29-2022 Creatinine [Mass/Vol] 0.70 mg/dL 0.55-1.02 [facility] Comment on above: The validity of the calculated GFR & GFRAA in patients over 70 years has not been determined. Clinical correlation is essential. Serum or plasma urea nitroge n measurement (mass/volume)Ordered By: ED PROVIDER on 04-29-2022 Urea nitrogen [Mass/Vol] 6 mg/dL 7-18 [facility] Thin prep Papanicolaou smear with manual screeningOrdered By: ED PROVIDER on 04-29-2022 Thin prep Papanicolaou smear with manual screening 6 5-15 [facility] Culture, urine Bacteria identified Cx Nom (U) Positive [facility] Work Phone: Vital Signs Date Time Vital Sign Value Performing Clinician Mary mcgill 03-28-2025 10:39-0400 Body mass index (BMI) [Ratio] 27.45 kg/m2 Bharat Mosher MD Work Phone: [facility] 03-28-2025 10:39-0400 Body temperature 98.01 [degF] Bharat Mosher MD Work Phone: [facility] 03-28-2025 10:39-0400 Body weight 72.4 kg Bharat Mosher MD Work Phone: [facility] 03-28-2025 10:39-0400 Diastolic blood pressure 96 mm[Hg] Bharat Mosher MD Work Phone: [facility] 03-28-2025 10:39-0400 Heart rate 75 /min Bharat Mosher MD Work Phone: [facility] 03-28-2025 10:39-0400 Respiratory rate 18 /min Bharat Mosher MD Work Phone: [facility] 03-28-2025 10:39-0400 SaO2% (BldA) [Mass fraction] 99 % Bharat Mosher MD Work Phone: [facility] 03-28-2025 10:39-0400 Systolic blood pressure 122 mm[Hg] Bharat Mosher MD Work Phone: [facility] 03-22-2025 09:11-0400 Body height 162.4 cm Issac Fernández MD Work Phone: [facility] 03-22-2025 09:11-0400 Body mass index (BMI) [Ratio] 27 kg/m2 Issac Fernández MD Work Phone: [facility] 03-22-2025 09:11-0400 Body weight 71.22 kg Issac Fernández MD Work Phone: [facility] 03-22-2025 09:11-0400 Diastolic blood pressure 84 mm[Hg] Issac Fernández MD Work Phone: [facility] 03-22-2025 09:11-0400 Heart rate 84 /min Issac Fernández MD Work Phone: [facility] 03-22-2025 09:11-0400 SaO2% (BldA) [Mass fraction] 99 % Issac Fernández MD Work Phone: [facility] 03-22-2025 09:11-0400 Systolic blood pressure 116 mm[Hg] Issac Fernández MD Work Phone: [facility] 03-14-2025 08:11-0400 Body height 162.4 cm Citlali RODRIGUEZ-C Work Phone: [facility] 03-14-2025 08:11-0400 Body mass index (BMI) [Ratio] 27.73 kg/m2 Citlali RODRIGUEZ-C Work Phone: [facility] 03-14-2025 08:11-0400 Body weight 73.15 kg Citlali RODRIGUEZ-C Work Phone: [facility] 03-05-2025 10:48-0400 Body height 162.4 cm Veronica Podlogar [employer]TAINER W[employer]ER [employer] Work Phone: [facility] 03-05-2025 10:48-0400 Body mass index (BMI) [Ratio] 28.21 kg/m2 Veronica Podlogar [employer]TAINER W[employer]ER [employer]ACHINE.[employer] Work Phone: [facility] 03-05-2025 10:48-0400 Body weight 74.39 kg Veronica Podlogar CONTAINER W[employer]ER [employer]INE.[employer] Work Phone: [facility] 03-05-2025 10:48-0400 Diastolic blood pressure 74 mm[Hg] Veronica Podlogar CONTAINER W[employer]ER [employer]ACHINE.[employer] Work Phone: [facility] 03-05-2025 10:48-0400 Heart rate 82 /min Veronica Podlogar CONTAINER W[employer]ER [employer]INE.[employer] Work Phone: [facility] 03-05-2025 10:48-0400 Respiratory rate 18 /min Veronica Podlogar CONTAINER W[employer]ER [employer]INE.[employer] Work Phone: [facility] 03-05-2025 10:48-0400 SaO2% (BldA) [Mass fraction] 98 % Veronica Podlogar [employer]TAINER W[employer]ER [employer]INE.[employer] Work Phone: [facility] 03-05-2025 10:48-0400 Systolic blood pressure 106 mm[Hg] Veronica Muse APRN.[employer] Work Phone: [facility] 03-03-2025 14:43-0400 Body mass index (BMI) [Ratio] 27.28 kg/m2 Rohan Villalba APRN.[employer] Work Phone: [facility] 03-03-2025 14:43-0400 Body temperature 97.59 [degF] Rohan Villalba APRN.[employer] Work Phone: [facility] 03-03-2025 14:43-0400 Body weight 74 kg Rohan Villalba APRN.[employer] Work Phone: [facility] 03-03-2025 14:43-0400 Diastolic blood pressure 78 mm[Hg] Rohan Villalba APRN.[employer] Work Phone: [facility] 03-03-2025 14:43-0400 Heart rate 76 /min Rohan Villalba APRN.[employer] Work Phone: [facility] 03-03-2025 14:43-0400 Respiratory rate 20 /min Rohan Villalba APRN.[employer] Work Phone: [facility] 03-03-2025 14:43-0400 SaO2% (BldA) [Mass fraction] 100 % Rohan Villalba APRN.[employer] Work Phone: [facility] 03-03-2025 14:43-0400 Systolic blood pressure 120 mm[Hg] Rohan Villalba APRN.[employer] Work Phone: [facility] 02-14-2025 16:14-0400 Body mass index (BMI) [Ratio] 27.87 kg/m2 Jamal Cortez APRN.[employer] Work Phone: [facility] 02-14-2025 16:14-0400 Body temperature 97.3 [degF] Jamal Cortez APRN.[employer] Work Phone: [facility] 02-14-2025 16:14-0400 Body weight 75.6 kg Jamal Cortez APRN.[employer] Work Phone: [facility] 02-14-2025 16:14-0400 Diastolic blood pressure 85 mm[Hg] Jamal Pendlebury CONTAINER W[employer]ER [employer]ACHINE.[employer] Work Phone: [facility] 02-14-2025 16:14-0400 Heart rate 87 /min Jamal Pendlebury [employer]TAINER W[employer]ER [employer]INE.[employer] Work Phone: [facility] 02-14-2025 16:14-0400 Respiratory rate 18 /min Jamal Pendlebury [employer]ER W[employer]ER [employer]INE.[employer] Work Phone: [facility] 02-14-2025 16:14-0400 SaO2% (BldA) [Mass fraction] 98 % Jamal Pendlebury [employer]TAINER WASHER [employer]INE.[employer] Work Phone: [facility] 02-14-2025 16:14-0400 Systolic blood pressure 135 mm[Hg] Jamal Pendlebury CONTAINER W[employer]ER [employer]INE.[employer] Work Phone: [facility] 02-10-2025 13:03-0400 Body mass index (BMI) [Ratio] 27.91 kg/m2 Sierra Evelia [employer] W[employer]ER [employer] Work Phone: [facility] 02-10-2025 13:03-0400 Body temperature 98.2 [degF] Sierra Evelia [employer]ER W[employer]ER [employer]INE.[employer] Work Phone: [facility] 02-10-2025 13:03-0400 Body weight 75.7 kg Sierra Altamirano [employer]ER W[employer]ER [employer]INE.[employer] Work Phone: [facility] 02-10-2025 13:03-0400 Diastolic blood pressure 87 mm[Hg] Sierra Evelia [employer]ER W[employer]ER [employer]INE.[employer] Work Phone: [facility] 02-10-2025 13:03-0400 Heart rate 89 /min Sierra Evelia [employer]ER W[employer]ER [employer]INE.[employer] Work Phone: [facility] 02-10-2025 13:03-0400 Respiratory rate 18 /min Sierra Evelia [employer]TAINER W[employer]ER [employer]INE.[employer] Work Phone: [facility] 02-10-2025 13:03-0400 SaO2% (BldA) [Mass fraction] 99 % Sierra Altamirano APRN.[employer] Work Phone: [facility] 02-10-2025 13:03-0400 Systolic blood pressure 121 mm[Hg] Sierra Altamirano APRN.[employer] Work Phone: [facility] 02-07-2025 10:20-0400 Body mass index (BMI) [Ratio] 28.39 kg/m2 Rohan Villalba APRN.[employer] Work Phone: [facility] 02-07-2025 10:20-0400 Body temperature 97.7 [degF] Rohan Villalba APRN.[employer] Work Phone: [facility] [address] [facility] 02-[facility]25 10:20-0400 Body weight 77 kg Rohan Villalba APRN.[employer] Work Phone: [facility] 02-07-2025 10:20-0400 Diastolic blood pressure 83 mm[Hg] Rohan Villalba APRN.[employer] Work Phone: [facility] 02-07-2025 10:20-0400 Heart rate 81 /min Rohan Villalba APRN.[employer] Work Phone: [facility] 02-07-2025 10:20-0400 Respiratory rate 18 /min Rohan Villalba APRN.[employer] Work Phone: [facility] 02-07-2025 10:20-0400 SaO2% (BldA) [Mass fraction] 100 % Rohan Villalba APRN.[employer] Work Phone: [facility] 02-07-2025 10:20-0400 Systolic blood pressure 126 mm[Hg] Rohan Villalba APRN.[employer] Work Phone: [facility] 01-25-2025 10:32-0400 Diastolic blood pressure 86 mm[Hg] Issac Fernández MD Work Phone: [facility] 01-25-2025 10:32-0400 Systolic blood pressure 120 mm[Hg] Issac Fernández MD Work Phone: [facility] 01-25-2025 10:01-0400 Body height 164.7 cm Issac Fernández MD Work Phone: [facility] 01-25-2025 10:01-0400 Body mass index (BMI) [Ratio] 28.33 kg/m2 Issac Fernández MD Work Phone: [facility] 01-25-2025 10:01-0400 Body weight 76.84 kg Issac Fernández MD Work Phone: [facility] 01-25-2025 10:01-0400 Heart rate 72 /min Issac Fernández MD Work Phone: [facility] 01-25-2025 10:01-0400 SaO2% (BldA) [Mass fraction] 98 % Issac Fernández MD Work Phone: [facility] 12-27-2024 12:00-0400 Body height 164.7 cm Issac Fernández MD Work Phone: [facility] 12-27-2024 12:00-0400 Body mass index (BMI) [Ratio] 28.76 kg/m2 Issac Fernández MD Work Phone: [facility] 12-27-2024 12:00-0400 Body weight 78 kg Issac Fernández MD Work Phone: [facility] 12-27-2024 12:00-0400 Diastolic blood pressure 84 mm[Hg] Issac Fernández MD Work Phone: [facility] 12-27-2024 12:00-0400 Heart rate 80 /min Issac Fernández MD Work Phone: [facility] 12-27-2024 12:00-0400 SaO2% (BldA) [Mass fraction] 98 % Issac Fernández MD Work Phone: [facility] 12-27-2024 12:00-0400 Systolic blood pressure 104 mm[Hg] Issac Fernández MD Work Phone: [facility] 11-30-2024 10:06-0400 Body mass index (BMI) [Ratio] 28.83 kg/m2 Veronica Podlogar CONTAINER WASHER MACHINE.[employer] Work Phone: [facility] 11-30-2024 10:06-0400 Body weight 78.2 kg Veronica Podlogar CONTAINER WASHER MACHINE.[employer] Work Phone: [facility] 11-30-2024 10:06-0400 Diastolic blood pressure 86 mm[Hg] Veronica Podlogar CONTAINER WASHER MACHINE.[employer] Work Phone: [facility] 11-30-2024 10:06-0400 Heart rate 66 /min Veronica Podlogar CONTAINER WASHER MACHINE.[employer] Work Phone: [facility] 11-30-2024 10:06-0400 Respiratory rate 16 /min Veronica Podlogar CONTAINER WASHER MACHINE.[employer] Work Phone: [facility] 11-30-2024 10:06-0400 SaO2% (BldA) [Mass fraction] 98 % Veronica Podlogar CONTAINER WASHER MACHINE.[employer] Work Phone: [facility] 11-30-2024 10:06-0400 Systolic blood pressure 108 mm[Hg] Veronica Podlogar CONTAINER WASHER MACHINE.[employer] Work Phone: [facility] 11-06-2024 09:02-0400 Body mass index (BMI) [Ratio] 29.2 kg/m2 Jamal Cortez CONTAINER WASHER MACHINE.[employer] Work Phone: [facility] 11-06-2024 09:02-0400 Body temperature 98.1 [degF] Jamal Cortez CONTAINER WASHER MACHINE.[employer] Work Phone: [facility] 11-06-2024 09:02-0400 Body weight 79.2 kg Jamal Cortez CONTAINER WASHER MACHINE.[employer] Work Phone: [facility] 11-06-2024 09:02-0400 Diastolic blood pressure 76 mm[Hg] Jamal Cortez CONTAINER WASHER MACHINE.[employer] Work Phone: [facility] 11-06-2024 09:02-0400 Heart rate 72 /min Jamal Cortez CONTAINER WASHER MACHINE.[employer] Work Phone: [facility] 11-06-2024 09:02-0400 Respiratory rate 16 /min Jamal Cortez CONTAINER WASHER MACHINE.[employer] Work Phone: [facility] 11-06-2024 09:02-0400 SaO2% (BldA) [Mass fraction] 97 % Jamal Cortez CONTAINER WASHER MACHINE.[employer] Work Phone: [facility] 11-06-2024 09:02-0400 Systolic blood pressure 120 mm[Hg] Jamal Cortez CONTAINER WASHER MACHINE.[employer] Work Phone: [facility] 09-12-2024 16:21-0500 Body mass index (BMI) [Ratio] 30.82 kg/m2 Bharat Mosher MD Work Phone: [facility] 09-12-2024 16:21-0500 Body temperature 98.4 [degF] Bharat Mosher MD Work Phone: [facility] 09-12-2024 16:21-0500 Body weight 83.6 kg Bharat Mosher MD Work Phone: [facility] 09-12-2024 16:21-0500 Diastolic blood pressure 70 mm[Hg] Bharat Mosher MD Work Phone: [facility] 09-12-2024 16:21-0500 Heart rate 86 /min Bharat Mosher MD Work Phone: [facility] 09-12-2024 16:21-0500 Respiratory rate 16 /min Bharat Mosher MD Work Phone: [facility] 09-12-2024 16:21-0500 SaO2% (BldA) [Mass fraction] 99 % Bharat Mosher MD Work Phone: [facility] 09-12-2024 16:21-0500 Systolic blood pressure 120 mm[Hg] Bharat Mosher MD Work Phone: [facility] 05-14-2024 11:12-0400 Body mass index (BMI) [Ratio] 30.89 kg/m2 Santos Soler CONTAINER WASHER MACHINE.[employer] Work Phone: [facility] 05-14-2024 11:12-0400 Body temperature 97.9 [degF] Santos Soler CONTAINER WASHER MACHINE.[employer] Work Phone: [facility] 05-14-2024 11:12-0400 Body weight 83.8 kg Santoslew Soler CONTAINER WASHER MACHINE.[employer] Work Phone: [facility] 05-14-2024 11:12-0400 Diastolic blood pressure 78 mm[Hg] Santos Soler CONTAINER WASHER MACHINE.[employer] Work Phone: [facility] 05-14-2024 11:12-0400 Heart rate 97 /min Santos Soler CONTAINER WASHER MACHINE.[employer] Work Phone: [facility] 05-14-2024 11:12-0400 Respiratory rate 18 /min Santos Soler CONTAINER WASHER MACHINE.[employer] Work Phone: [facility] 05-14-2024 11:12-0400 SaO2% (BldA) [Mass fraction] 99 % Santos Soler CONTAINER WASHER MACHINE.[employer] Work Phone: [facility] 05-14-2024 11:12-0400 Systolic blood pressure 110 mm[Hg] Santos Soler CONTAINER WASHER MACHINE.[employer] Work Phone: [facility] 03-21-2024 09:30-0400 Body height 164.7 cm Veronica Podlogar CONTAINER WASHER MACHINE.[employer] Work Phone: [facility] 03-21-2024 09:30-0400 Body mass index (BMI) [Ratio] 32.94 kg/m2 Veronica Podlogar CONTAINER WASHER MACHINE.[employer] Work Phone: [facility] 03-21-2024 09:30-0400 Body weight 89.36 kg Veronica Podlogar CONTAINER WASHER MACHINE.[employer] Work Phone: [facility] 03-21-2024 09:30-0400 Diastolic blood pressure 82 mm[Hg] Veronica Podlogar CONTAINER WASHER MACHINE.[employer] Work Phone: [facility] 03-21-2024 09:30-0400 Heart rate 89 /min Veronica Podlogar CONTAINER WASHER MACHINE.[employer] Work Phone: [facility] 03-21-2024 09:30-0400 Respiratory rate 18 /min Veronica Muse CONTAINER WASHER MACHINE.[employer] Work Phone: [facility] 03-21-2024 09:30-0400 SaO2% (BldA) [Mass fraction] 98 % Veronica Muse CONTAINER WASHER MACHINE.[employer] Work Phone: [facility] 03-21-2024 09:30-0400 Systolic blood pressure 122 mm[Hg] Veronica Guerralogceline CONTAINER WASHER MACHINE.[employer] Work Phone: [facility] 01-27-2024 17:41-0400 Body temperature 97.9 [degF] Marychuy Calvin CONTAINER WASHER MACHINE.[employer] Work Phone: [facility] 01-27-2024 17:41-0400 Body weight 104 kg Marychuy Calvin CONTAINER WASHER MACHINE.[employer] Work Phone: [facility] 01-27-2024 17:41-0400 Diastolic blood pressure 72 mm[Hg] Marychuy Calvin CONTAINER WASHER MACHINE.[employer] Work Phone: [facility] 01-27-2024 17:41-0400 Heart rate 113 /min Marychuy Calvin CONTAINER WASHER MACHINE.[employer] Work Phone: [facility] 01-27-2024 17:41-0400 Respiratory rate 18 /min Marychuy Calvin CONTAINER WASHER MACHINE.[employer] Work Phone: [facility] 01-27-2024 17:41-0400 SaO2% (BldA) [Mass fraction] 98 % Marychuy Calvin CONTAINER WASHER MACHINE.[employer] Work Phone: [facility] 01-27-2024 17:41-0400 Systolic blood pressure 152 mm[Hg] Marychuy Calvin CONTAINER WASHER MACHINE.[employer] Work Phone: [facility] 01-21-2024 09:00-0400 Body temperature 98.71 [degF] Bharat Mosher MD Work Phone: [facility] 01-21-2024 09:00-0400 Body weight 103.9 kg Bharat Mosher MD Work Phone: [facility] 01-21-2024 09:00-0400 Diastolic blood pressure 92 mm[Hg] Bharat Mosher MD Work Phone: [facility] 01-21-2024 09:00-0400 Heart rate 79 /min Bharat Mosher MD Work Phone: [facility] 01-21-2024 09:00-0400 Respiratory rate 18 /min Bharat Mosher MD Work Phone: [facility] 01-21-2024 09:00-0400 SaO2% (BldA) [Mass fraction] 97 % Bharat Mosher MD Work Phone: [facility] 01-21-2024 09:00-0400 Systolic blood pressure 139 mm[Hg] Bharat Mosher MD Work Phone: [facility] 07-08-2023 08:25-0500 Body height 162.56 cm No Primary Care Physician [facility] 07-08-2023 08:24-0500 Body mass index (BMI) [Ratio] 33.2 kg/m2 No Primary Care Physician [facility] 07-08-2023 08:24-0500 Body weight 87.71 kg No Primary Care Physician [facility] 07-08-2023 08:24-0500 Diastolic blood pressure 79 mm[Hg] No Primary Care Physician [facility] 07-08-2023 08:24-0500 Systolic blood pressure 122 mm[Hg] No Primary Care Physician [facility] 05-25-2023 10:28-0500 Body temperature 98.01 [degF] Becca Athy PA-C Work Phone: [facility] 05-25-2023 10:28-0500 Body weight 89.9 kg Becca Athy PA-C Work Phone: [facility] 05-25-2023 10:28-0500 Diastolic blood pressure 72 mm[Hg] Becca Athy PA-C Work Phone: [facility] 05-25-2023 10:28-0500 Heart rate 90 /min Becca Athy PA-C Work Phone: [facility] 05-25-2023 10:28-0500 Respiratory rate 18 /min Becca Stearns PA-C Work Phone: [facility] 05-25-2023 10:28-0500 SaO2% (BldA) [Mass fraction] 98 % Becca Stearns PA-C Work Phone: [facility] 05-25-2023 10:28-0500 Systolic blood pressure 110 mm[Hg] Becca Stearns PA-C Work Phone: [facility] 04-01-2023 15:21-0400 Body mass index (BMI) [Percentile] Per age and sex 96.2 % No Primary Care Physician [facility] 04-01-2023 15:21-0400 Body mass index (BMI) [Ratio] 33.2 kg/m2 No Primary Care Physician [facility] 04-01-2023 15:21-0400 Body weight 87.71 kg No Primary Care Physician [facility] 04-01-2023 15:21-0400 Diastolic blood pressure 77 mm[Hg] No Primary Care Physician [facility] 04-01-2023 15:21-0400 Systolic blood pressure 112 mm[Hg] No Primary Care Physician [facility] 01-04-2023 15:32-0400 Body height 162.56 cm No Primary Care Physician [facility] 01-04-2023 15:32-0400 Body mass index (BMI) [Percentile] Per age and sex 97 % No Primary Care Physician [facility] 01-04-2023 15:32-0400 Body mass index (BMI) [Ratio] 34.5 kg/m2 No Primary Care Physician [facility] 01-04-2023 15:32-0400 Body weight 91.39 kg No Primary Care Physician [facility] 01-04-2023 15:32-0400 Diastolic blood pressure 80 mm[Hg] No Primary Care Physician [facility] 01-04-2023 15:32-0400 Systolic blood pressure 122 mm[Hg] No Primary Care Physician [facility] 12-17-2022 08:45-0400 Heart rate 86 /min No Primary Care Physician [facility] 12-17-2022 08:45-0400 SaO2% (BldA) [Mass fraction] 98 % No Primary Care Physician [facility] 12-17-2022 08:44-0400 Body temperature 97.2 [degF] No Primary Care Physician [facility] 12-17-2022 08:44-0400 Diastolic blood pressure 59 mm[Hg] No Primary Care Physician [facility] 12-17-2022 08:44-0400 Systolic blood pressure 107 mm[Hg] No Primary Care Physician [facility] 12-17-2022 08:43-0400 Respiratory rate 16 /min No Primary Care Physician [facility] 12-15-2022 23:37-0400 Diastolic blood pressure 51 mm[Hg] No Primary Care Physician [facility] 12-15-2022 23:37-0400 Heart rate 80 /min No Primary Care Physician [facility] 12-15-2022 23:37-0400 Systolic blood pressure 93 mm[Hg] No Primary Care Physician [facility] 12-15-2022 23:36-0400 Body temperature 97.9 [degF] No Primary Care Physician [facility] 12-15-2022 23:30-0400 Respiratory rate 15 /min No Primary Care Physician [facility] 12-15-2022 23:30-0400 SaO2% (BldA) [Mass fraction] 100 % No Primary Care Physician [facility] 12-13-2022 19:15-0400 Body weight 105.9 kg No Primary Care Physician [facility] 12-10-2022 15:10-0400 Body height 162.56 cm No Primary Care Physician [facility] 12-10-2022 15:09-0400 Body mass index (BMI) [Percentile] Per age and sex 98.4 % No Primary Care Physician [facility] 12-10-2022 15:09-0400 Body mass index (BMI) [Ratio] 39.9 kg/m2 No Primary Care Physician [facility] 12-10-2022 15:09-0400 Body weight 105.34 kg No Primary Care Physician [facility] 12-10-2022 15:09-0400 Diastolic blood pressure 81 mm[Hg] No Primary Care Physician [facility] 12-10-2022 15:09-0400 Systolic blood pressure 122 mm[Hg] No Primary Care Physician [facility] 12-08-2022 11:37-0400 Body weight 105.68 kg No Primary Care Physician [facility] 12-07-2022 09:05-0400 Diastolic blood pressure 72 mm[Hg] No Primary Care Physician [facility] 12-07-2022 09:05-0400 Systolic blood pressure 109 mm[Hg] No Primary Care Physician [facility] 12-07-2022 08:25-0400 Body mass index (BMI) [Percentile] Per age and sex 98.4 % No Primary Care Physician [facility] 12-07-2022 08:25-0400 Body mass index (BMI) [Ratio] 39.9 kg/m2 No Primary Care Physician [facility] 12-07-2022 08:25-0400 Body weight 105.68 kg No Primary Care Physician [facility] 12-02-2022 08:30-0400 Body mass index (BMI) [Percentile] Per age and sex 98.4 % No Primary Care Physician [facility] 12-02-2022 08:30-0400 Body mass index (BMI) [Ratio] 39.4 kg/m2 No Primary Care Physician [facility] 12-02-2022 08:30-0400 Body weight 104.32 kg No Primary Care Physician [facility] 12-02-2022 08:30-0400 Diastolic blood pressure 74 mm[Hg] No Primary Care Physician [facility] 12-02-2022 08:30-0400 Systolic blood pressure 120 mm[Hg] No Primary Care Physician [facility] 12-01-2022 13:12-0400 Diastolic blood pressure 78 mm[Hg] No Primary Care Physician [facility] 12-01-2022 13:12-0400 Systolic blood pressure 120 mm[Hg] No Primary Care Physician [facility] 11-29-2022 15:26-0400 Body mass index (BMI) [Percentile] Per age and sex 98.5 % No Primary Care Physician [facility] 11-29-2022 15:26-0400 Body mass index (BMI) [Ratio] 39.9 kg/m2 No Primary Care Physician [facility] 11-29-2022 15:26-0400 Body weight 105.34 kg No Primary Care Physician [facility] 11-29-2022 15:26-0400 Diastolic blood pressure 79 mm[Hg] No Primary Care Physician [facility] 11-29-2022 15:26-0400 Systolic blood pressure 120 mm[Hg] No Primary Care Physician [facility] 11-26-2022 09:43-0400 Body mass index (BMI) [Percentile] Per age and sex 98.4 % No Primary Care Physician [facility] 11-26-2022 09:43-0400 Body mass index (BMI) [Ratio] 39.3 kg/m2 No Primary Care Physician [facility] 11-26-2022 09:43-0400 Body weight 104.04 kg No Primary Care Physician [facility] 11-23-2022 08:30-0400 Body mass index (BMI) [Percentile] Per age and sex 98.4 % No Primary Care Physician [facility] 11-23-2022 08:30-0400 Body mass index (BMI) [Ratio] 39.8 kg/m2 No Primary Care Physician [facility] 11-23-2022 08:30-0400 Body weight 105.29 kg No Primary Care Physician [facility] 11-19-2022 15:01-0400 Body mass index (BMI) [Percentile] Per age and sex 98.4 % No Primary Care Physician [facility] 11-19-2022 15:01-0400 Body mass index (BMI) [Ratio] 39.5 kg/m2 No Primary Care Physician [facility] 11-19-2022 15:01-0400 Body weight 104.55 kg No Primary Care Physician [facility] 11-19-2022 15:01-0400 Diastolic blood pressure 80 mm[Hg] No Primary Care Physician [facility] 11-19-2022 15:01-0400 Systolic blood pressure 117 mm[Hg] No Primary Care Physician [facility] 11-16-2022 10:54-0400 Body mass index (BMI) [Percentile] Per age and sex 98.4 % No Primary Care Physician [facility] 11-16-2022 10:54-0400 Body mass index (BMI) [Ratio] 39.5 kg/m2 No Primary Care Physician [facility] 11-16-2022 10:54-0400 Body temperature 98.4 [degF] No Primary Care Physician [facility] 11-16-2022 10:54-0400 Body weight 104.43 kg No Primary Care Physician [facility] 11-16-2022 10:54-0400 Diastolic blood pressure 78 mm[Hg] No Primary Care Physician [facility] 11-16-2022 10:54-0400 Heart rate 107 /min No Primary Care Physician [facility] 11-16-2022 10:54-0400 Respiratory rate 16 /min No Primary Care Physician [facility] 11-16-2022 10:54-0400 SaO2% (BldA) [Mass fraction] 95 % No Primary Care Physician [facility] 11-16-2022 10:54-0400 Systolic blood pressure 109 mm[Hg] No Primary Care Physician [facility] 11-16-2022 08:54-0400 Diastolic blood pressure 69 mm[Hg] No Primary Care Physician [facility] 11-16-2022 08:54-0400 Systolic blood pressure 101 mm[Hg] No Primary Care Physician [facility] 11-16-2022 08:35-0400 Body mass index (BMI) [Percentile] Per age and sex 98.4 % No Primary Care Physician [facility] 11-16-2022 08:35-0400 Body mass index (BMI) [Ratio] 39.3 kg/m2 No Primary Care Physician [facility] 11-16-2022 08:35-0400 Body weight 104.04 kg No Primary Care Physician [facility] 11-11-2022 09:53-0400 Body mass index (BMI) [Percentile] Per age and sex 98.4 % No Primary Care Physician [facility] 11-11-2022 09:53-0400 Body mass index (BMI) [Ratio] 39.8 kg/m2 No Primary Care Physician [facility] 11-11-2022 09:53-0400 Body weight 105.23 kg No Primary Care Physician [facility] 11-11-2022 09:53-0400 Diastolic blood pressure 82 mm[Hg] No Primary Care Physician [facility] 11-11-2022 09:53-0400 Systolic blood pressure 121 mm[Hg] No Primary Care Physician [facility] 11-10-2022 17:56-0400 Heart rate 89 /min No Primary Care Physician [facility] 11-10-2022 17:56-0400 SaO2% (BldA) [Mass fraction] 99 % No Primary Care Physician [facility] 11-10-2022 17:55-0400 Diastolic blood pressure 69 mm[Hg] No Primary Care Physician [facility] 11-10-2022 17:55-0400 Systolic blood pressure 117 mm[Hg] No Primary Care Physician [facility] 11-10-2022 16:24-0400 Body mass index (BMI) [Percentile] Per age and sex 98.4 % No Primary Care Physician [facility] 11-10-2022 16:24-0400 Body mass index (BMI) [Ratio] 39.8 kg/m2 No Primary Care Physician [facility] 11-10-2022 16:24-0400 Body weight 105.3 kg No Primary Care Physician [facility] 11-10-2022 16:15-0400 Body temperature 98.2 [degF] No Primary Care Physician [facility] 11-03-2022 15:52-0400 Body height 162.[address] Dennis Recinos Work Phone: [facility] 11-03-2022 15:51-0400 Body mass index (BMI) [Percentile] Per age and sex 98.4 % Dr. Dennis Recinos Work Phone: [facility] 11-03-2022 15:51-0400 Body mass index (BMI) [Ratio] 39.2 kg/m2 Dr. Dennis Recinos Work Phone: [facility] 11-03-2022 15:51-0400 Body weight 103.[address] Dennis Recinos Work Phone: [facility] 11-03-2022 15:51-0400 Diastolic blood pressure 89 mm[Hg] Dr. Dennis Recinos Work Phone: [facility] 11-03-2022 15:51-0400 Systolic blood pressure 126 mm[Hg] Dr. Dennis Recinos Work Phone: [facility] 10-19-2022 15:08-0400 Body height 162.[address] Dennis Recinos Work Phone: [facility] 10-19-2022 15:03-0400 Body mass index (BMI) [Percentile] Per age and sex 98.3 % Dr. Dennis Recinos Work Phone: [facility] 10-19-2022 15:03-0400 Body mass index (BMI) [Ratio] 38.6 kg/m2 Dr. Dennis Recinos Work Phone: [facility] 10-19-2022 15:03-0400 Body weight 102.[address] Dennis Recinos Work Phone: [facility] 10-19-2022 15:03-0400 Diastolic blood pressure 72 mm[Hg] Dr. Dennis Recinos Work Phone: [facility] 10-19-2022 15:03-0400 Systolic blood pressure 112 mm[Hg] Dr. Dennis Recinos Work Phone: [facility] 10-08-2022 14:39-0400 Body mass index (BMI) [Percentile] Per age and sex 98.1 % Dr. Dennis Recinos Work Phone: [facility] 10-08-2022 14:39-0400 Body mass index (BMI) [Ratio] 37.9 kg/m2 Dr. Dennis Recinos Work Phone: [facility] 10-08-2022 14:39-0400 Body weight 100.[address] Dennis Recinos Work Phone: [facility] 10-08-2022 14:39-0400 Diastolic blood pressure 69 mm[Hg] Dr. Dennis Recinos Work Phone: [facility] 10-08-2022 14:39-0400 Heart rate 104 /min Dr. Dennis Recinos Work Phone: [facility] 10-08-2022 14:39-0400 Respiratory rate 18 /min Dr. Dennis Recinos Work Phone: [facility] 10-08-2022 14:39-0400 Systolic blood pressure 112 mm[Hg] Dr. Dennis Recinos Work Phone: [facility] 10-04-2022 16:32-0400 Body weight 99.[address] Dennis Recinos Work Phone: [facility] 10-04-2022 16:32-0400 Diastolic blood pressure 74 mm[Hg] Dr. Dennis Recinos Work Phone: [facility] 10-04-2022 16:32-0400 Systolic blood pressure 114 mm[Hg] Dr. Dennis Recinos Work Phone: [facility] 09-22-2022 09:50-0500 Body height 162.[address] Dennis Recinos Work Phone: [facility] 09-22-2022 09:50-0500 Body mass index (BMI) [Percentile] Per age and sex 97.8 % Dr. Dennis Recinos Work Phone: [facility] 09-22-2022 09:50-0500 Body mass index (BMI) [Ratio] 36.4 kg/m2 Dr. Dennis Recinos Work Phone: [facility] 09-22-2022 09:50-0500 Body weight 96.[address] Dennis Recinos Work Phone: [facility] 09-22-2022 09:50-0500 Diastolic blood pressure 72 mm[Hg] Dr. Dennis Recinos Work Phone: [facility] 09-22-2022 09:50-0500 Systolic blood pressure 118 mm[Hg] Dr. Dennis Recinos Work Phone: [facility] 08-17-2022 13:26-0500 Body height 162.[address] Dennis Recinos Work Phone: [facility] 08-17-2022 13:26-0500 Body mass index (BMI) [Percentile] Per age and sex 96.8 % Dr. Dennis Recinos Work Phone: [facility] 08-17-2022 13:26-0500 Body mass index (BMI) [Ratio] 33.7 kg/m2 Dr. Dennis Recinos Work Phone: [facility] 08-17-2022 13:26-0500 Body weight 89.[address] Dennis Recinos Work Phone: [facility] 08-17-2022 13:26-0500 Diastolic blood pressure 80 mm[Hg] Dr. Dennis Recinos Work Phone: [facility] 08-17-2022 13:26-0500 Systolic blood pressure 124 mm[Hg] Dr. Dennis Recinos Work Phone: [facility] 07-20-2022 10:43-0500 Body mass index (BMI) [Percentile] Per age and sex 95.6 % Dr. Dennis Recinos Work Phone: [facility] 07-20-2022 10:43-0500 Body mass index (BMI) [Ratio] 31.8 kg/m2 Dr. Dennis Recinos Work Phone: [facility] 07-20-2022 10:43-0500 Body weight 84.[address] Dennis Recinos Work Phone: [facility] 07-20-2022 10:43-0500 Diastolic blood pressure 82 mm[Hg] Dr. Dennis Recinos Work Phone: [facility] 07-20-2022 10:43-0500 Systolic blood pressure 124 mm[Hg] Dr. Dennis Recinos Work Phone: [facility] 07-14-2022 00:03-0500 Respiratory rate 18 /min Dr. Dennis Recinos Work Phone: [facility] 07-13-2022 20:47-0500 Body height 162.[address] Dennis Recinos Work Phone: [facility] Work Phone: 07-13-2022 20:47-0500 Body mass index (BMI) [Percentile] Per age and sex 95.5 % Dr. Dennis Recinos Work Phone: [facility] 07-13-2022 20:47-0500 Body mass index (BMI) [Ratio] 31.6 kg/m2 Dr. Dennis Recinos Work Phone: [facility] 07-13-2022 20:47-0500 Body temperature 97.8 [degF] Dr. Dennis Recinos Work Phone: 5(896)167-396789 [place] [address] 07-13-2022 20:47-0500 Body weight 83.[address] Dennis Recinos Work Phone: 2(949)046-889289 [place] [address] 07-13-2022 20:47-0500 Diastolic blood pressure 85 mm[Hg] Dr. Dennis Recinos Work Phone: 6(535)739-126289 [place] [address] 07-13-2022 20:47-0500 Heart rate 112 /min Dr. Dennis Recinos Work Phone: 1(019)[phone] [place] [address] 07-13-2022 20:47-0500 SaO2% (BldA) [Mass fraction] 98 % Dr. Dennis Recinos Work Phone: 3(674)[phone] [place] [address] 07-13-2022 20:47-0500 Systolic blood pressure 138 mm[Hg] Dr. Dennis Recinos Work Phone: 5(424)387-303789 [place] [address] 06-14-2022 14:20-0500 Body mass index (BMI) [Percentile] Per age and sex 94 % Dr. Dennis Recinos Work Phone: [facility] 06-14-2022 14:20-0500 Body mass index (BMI) [Ratio] 30.1 kg/m2 Dr. Dennis Recinos Work Phone: 7(952)306-087089 [place] [address] 06-14-2022 14:20-0500 Body weight 82.[address] Dennis Recinos Work Phone: [facility] 06-14-2022 14:20-0500 Diastolic blood pressure 77 mm[Hg] Dr. Dennis Recinos Work Phone: [facility] 06-14-2022 14:20-0500 Systolic blood pressure 121 mm[Hg] Dr. Dennis Recinos Work Phone: [facility] 05-13-2022 13:14-0400 Body height 165.[address] Dennis Recinos Work Phone: [facility] Work Phone: 05-13-2022 13:12-0400 Body mass index (BMI) [Percentile] Per age and sex 94.9 % Dr. Dennis Recinos Work Phone: [facility] 05-13-2022 13:12-0400 Body mass index (BMI) [Ratio] 30.8 kg/m2 Dr. Dennis Recinos Work Phone: [facility] 05-13-2022 13:12-0400 Body weight 84.[address] Dennis Recinos Work Phone: [facility] 05-13-2022 13:12-0400 Diastolic blood pressure 67 mm[Hg] Dr. Dennis Recinos Work Phone: [facility] 05-13-2022 13:12-0400 Systolic blood pressure 108 mm[Hg] Dr. Dennis Recinos Work Phone: [facility] 04-29-2022 17:28-0400 Body height 165.1 cm [facility] Work Phone: 04-29-2022 17:28-0400 Body mass index (BMI) [Percentile] Per age and sex 94.5 % [facility] 04-29-2022 17:28-0400 Body mass index (BMI) [Ratio] 30.4 kg/m2 [facility] 04-29-2022 17:28-0400 Body temperature 98.2 [degF] [facility] 04-29-2022 17:28-0400 Body weight 82.9 kg [facility] 04-29-2022 17:28-0400 Diastolic blood pressure 89 mm[Hg] [facility] 04-29-2022 17:28-0400 Heart rate 87 /min [facility] 04-29-2022 17:28-0400 Respiratory rate 16 /min [facility] 04-29-2022 17:28-0400 SaO2% (BldA) [Mass fraction] 98 % [facility] 04-29-2022 17:28-0400 Systolic blood pressure 137 mm[Hg] [facility] 11-05-2021 12:07-0400 Body temperature 98.1 [degF] Becca Athy PA-C Work Phone: [facility] 11-05-2021 12:07-0400 Body weight 77.66 kg Becca Athy PA-C Work Phone: [facility] 11-05-2021 12:07-0400 Diastolic blood pressure 72 mm[Hg] Becca Athy PA-C Work Phone: [facility] 11-05-2021 12:07-0400 Heart rate 66 /min Becca Athy PA-C Work Phone: [facility] 11-05-2021 12:07-0400 Respiratory rate 16 /min Becca Athy PA-C Work Phone: [facility] 11-05-2021 12:07-0400 SaO2% (BldA) [Mass fraction] 100 % Becca Athy PA-C Work Phone: [facility] 11-05-2021 12:07-0400 Systolic blood pressure 124 mm[Hg] Becca Athy PA-C Work Phone: [facility] Encounters Encounter Date Encounter Type Care Provider Facility Start: 04-05-2025 End: 04-05-2025 Emergency department patient visit Veronica Podlogceline Facility:[facility] Start: 04-03-2025 End: 04-03-2025 ambulatory Veronica Guerralogceline [place] Start: 04-03-2025 ambulatory Lu Mcclain Facility :[facility] Start: 04-02-2025 End: 04-02-2025 Patient encounter procedure Maxine Ellis APRN.CNP Work Phone: Psychiatry Comment on above: NO SHOW (Primary Dx) Start: 03-29-2025 End: 04-02-2025 Follow-up encounter Citlali Ceja PA-C Work Phone: Neurology Start: 03-28-2025 End: 03-28-2025 ambulatory ISSAC FERNÁNDEZ Facility:[facility] Start: 03-28-2025 ambulatory Veronica Podlogar Facility [facility] Start: 03-28-2025 End: 03-28-2025 Emergency department patient visit Veronica Podlogar Facility:[facility] Start: 03-28-2025 End: 03-28-2025 Patient encounter procedure Bharat Mosher MD Work Phone: [facility] [place] Comment on above: Dizziness (Primary D x); SOB (shortness of breath); Nasal congestion; Right leg pain Start: 03-28-2025 End: 03-28-2025 ambulatory ISSAC FERNÁNDEZ Facility:[facility] Start: 03-27-2025 End: 03-27-2025 Telephone encounter Toshia Hess [facility] Work Phone: Psychology Comment on above: bh consult Start: 03-22-2025 End: 03-22-2025 Patient encounter procedure Issac Fernández MD Work Phone: [facility] [place] Comment on above: Asymptomatic varicos e veins of right lower extremity (Primary Dx); Hypotension, unspecified hypotension type Start: 03-22-2025 End: 03-22-2025 ambulatory ISSAC FERNÁNDEZ Facility:[facility] Start: 03-21-2025 End: 03-21-2025 ambulatory Nurse Intm/Famp Triage [facility] Work Phone: Nurse Phone Triage Comment on above: right knee lump; rig ht leg and right arm tingling Start: 03-21-2025 End: 03-21-2025 [facility] Maxine Ellis APRN.CNP Work Phone: Psychiatry Comment on above: Mixed obsessional th oughts and acts (Primary Dx); Moderate episode of recurrent major depressive disorder (HCC); Encounter for long-term (current) use of medications; anxiety (HCC) Start: 03-21-2025 End: 03-21-2025 ambulatory MAXINE ELLIS Facility:[facility] Start: 03-20-2025 End: 03-21-2025 ambulatory VERONICA PODLOGAR Facility:[facility] Start: 03-19-2025 End: 03-19-2025 ambulatory ISSAC FERNÁNDEZ Facility:[facility] Start: 03-16-2025 End: 03-19-2025 Telephone encounter Issac Fernández MD Work Phone: [facility] [place] Comment on above: Patient Update Start: 03-14-2025 End: 03-14-2025 ambulatory ISSAC FERNÁNDEZ Facility:[facility] Start: 03-14-2025 End: 03-14-2025 Patient encounter procedure Citlali Ceja PA-C Work Phone: Neurology Comment on above: Intractable migraine with aura without status migrainosus (Primary Dx); Positional lightheadedness Start: 03-08-2025 End: 03-11-2025 Telephone encounter Issac Fernández MD Work Phone: [facility] [place] Comment on above: Patient Update Patient Question Start: 03-05-2025 End: 03-05-2025 ambulatory VERONICA PODLOGAR Facility:[facility] Start: 03-05-2025 End: 03-05-2025 Patient encounter procedure Veronica Guerralogceline [employer]ONY[employer]ER OUTSOLE Work Phone: [facility] [place] Comment on above: Annual physical exam (Primary Dx); Screening-pulmonary TB; Gastroesophageal reflux disease, unspecified whether esophagitis present; Migraine without aura, not intractable, without status migrainosus; Anxiety disorder, unspecified type Refill Request Start: 03-03-2025 End: 03-03-2025 ambulatory ISSAC FERNÁNDEZ Facility:[facility] Start: 03-03-2025 End: 03-03-2025 Patient encounter procedure Rohan Villalba APRN.[employer]ER OUTSOLE Work Phone: [facility] [place] Comment on above: Sore throat (Primary Dx) Start: 02-22-2025 End: 03-04-2025 Telephone encounter Citlali Ceja PA-C Work Phone: Neurology Comment on above: Appointment Start: 02-22-2025 ambulatory ISSAC FERNÁNDEZ Facility:[facility] Start: 02-18-2025 End: 02-18-2025 ambulatory VERONICA MUSE Facility:[facility] Start: 02-18-2025 End: 02-18-2025 Telephone encounter Issac Fernández MD Work Phone: [facility] [place] Comment on above: Billing Codes for La b Work Start: 02-15-2025 End: 02-18-2025 ambulatory Veronica Podlogar CONTAINER WASHER MACHINE.CHANNELER OUTSOLE Work Phone: Family [facility] [place] Comment on above: Blood work thyroid Start: 02-14-2025 End: 02-14-2025 Office outpatient visit 15 minutes Jamal Cortez CONTAINER WASHER MACHINE.CHANNELER OUTSOLE Work Phone: [facility] [place] Comment on above: Pharyngitis, unspeci fied etiology (Primary Dx); Viral illness Start: 02-14-2025 End: 02-14-2025 ambulatory ISSAC FERNÁNDEZ Facility:[facility] Start: 02-14-2025 End: 02-14-2025 Telephone encounter Issac Fernández MD Work Phone: [facility] [place] Comment on above: Patient Update Start: 02-10-2025 End: 02-10-2025 Patient encounter procedure Sierra Altamirano CONTAINER WASHER MACHINE.CHANNELER OUTSOLE Work Phone: [facility] [place] Comment on above: Strep pharyngitis (P rimary Dx); Sore throat Start: 02-10-2025 End: 02-10-2025 ambulatory ISSAC FERNÁNDEZ Facility:[facility] Start: 02-08-2025 End: 02-08-2025 Emergency department patient visit [facility] Facility:[facility] Start: 02-07-2025 End: 02-07-2025 Patient encounter procedure Rohan Villalba CONTAINER WASHER MACHINE.CHANNELER OUTSOLE Work Phone: [facility] [place] Comment on above: Impacted cerumen of right ear (Primary Dx); Rhinosinusitis Start: 02-07-2025 End: 02-07-2025 ambulatory ISSAC FERNÁNDEZ Facility:[facility] Start: 02-05-2025 End: 02-07-2025 ambulatory Issac Fernández MD Work Phone: [facility] [place] Comment on above: Blood work Start: 01-31-2025 End: 01-31-2025 Follow-up encounter Issac Fernández MD Work Phone: [facility] [place] Start: 01-31-2025 ambulatory ISSAC FERNÁNDEZ Facility:[facility] Start: 01-31-2025 End: 01-31-2025 Subsequent hospital visit by physician [employer] [facility] (I-Stat/1.5t) Work Phone: Radiology Comment on above: Migraine without sta tus migrainosus, not intractable, unspecified migraine type [G43.909] Start: 01-25-2025 End: 01-25-2025 Patient encounter procedure Issac Fernández MD Work Phone: [facility] [place] Comment on above: Migraine without sta tus migrainosus, not intractable, unspecified migraine type (Primary Dx); Unsteadiness on feet; Numbness and tingling; Demyelinating disease of central nervous system (HCC); Blurred vision; Dizziness and giddiness Start: 01-25-2025 End: 01-25-2025 ambulatory ISSAC FERNÁNDEZ Facility:[facility] Start: 01-20-2025 End: 01-21-2025 ambulatory Issac Fernández MD Work Phone: [facility] [place] Comment on above: Symptoms Start: 01-11-2025 End: 01-11-2025 Telephone encounter Issac Fernández MD Work Phone: [facility] [place] Comment on above: Patient Question Start: 12-31-2024 End: 12-31-2024 Follow-up encounter Issac Fernández MD Work Phone: [facility] [place] Start: 12-28-2024 End: 12-28-2024 ambulatory ISSAC FERNÁNDEZ Facility:[facility] Start: 12-27-2024 End: 12-27-2024 Patient encounter procedure Issac Fernández MD Work Phone: Family [facility] Comment on above: Migraine with aura, intractable, without status migrainosus (Primary Dx); Palpitations; Tachycardia; Encounter for test, result unknown Start: 12-27-2024 End: 12-27-2024 ambulatory ISSAC FERNÁNDEZ Facility:[facility] Start: 12-26-2024 End: 12-26-2024 ambulatory Issac Fernández MD Work Phone: [facility] [place] Comment on above: Headache Start: 11-30-2024 End: 11-30-2024 Patient encounter procedure Veronica Muse CONTAINER WASHER MACHINE.CHANNELER OUTSOLE Work Phone: Family [facility] Comment on above: Migraine with aura, intractable, without status migrainosus; Mother currently breast-feeding (HCC) Start: 11-30-2024 End: 11-30-2024 ambulatory VERONICA PODLOGCELINE Facility:[facility] Start: 11-22-2024 End: 11-22-2024 ambulatory Maxine Ellis CONTAINER WASHER MACHINE.CHANNELER OUTSOLE Work Phone: Psychiatry Comment on above: NO SHOW (Primary Dx) Start: 11-22-2024 End: 11-22-2024 Telemedicine consultation with patient Maxine J Caleb CONTAINER WASHER MACHINE.CHANNELER OUTSOLE Work Phone: Psychiatry Start: 11-16-2024 ambulatory [facility] Facility :[facility] Start: 11-09-2024 End: 11-09-2024 ambulatory [facility] Facility:[facility] Start: 11-09-2024 End: 11-09-2024 ambulatory [facility] Facility:[facility] Start: 11-07-2024 End: 01-07-2025 Follow-up encounter Garcia Be APRN.CHANNELER OUTSOLE Work Phone: [facility] Start: 11-06-2024 End: 11-06-2024 ambulatory JAMAL CORTEZ Facility:[facility] Start: 11-06-2024 End: 11-06-2024 Office outpatient visit 15 minutes Jamal Coretz CONTAINER WASHER MACHINE.CHANNELER OUTSOLE Work Phone: [facility] Comment on above: Urinary frequency (P rimary Dx); Low back pain with sciatica, sciatica laterality unspecified, unspecified back pain laterality, unspecified chronicity Start: 11-01-2024 End: 11-01-2024 Nursing evaluation of patient and report Mi Nurse Work Phone: [facility] [place] Comment on above: Encounter for immuni zation (Primary Dx) Start: 11-01-2024 End: 11-01-2024 ambulatory ISSAC FERNÁNDEZ Facility:[facility] Start: 10-29-2024 End: 10-30-2024 Telephone encounter Maxine Ellis APRN.CHANNELER OUTSOLE Work Phone: Psychiatry Start: 10-23-2024 End: 10-24-2024 Telephone encounter Issac Fernández MD Work Phone: [facility] [place] Comment on above: Patient Question Start: 10-18-2024 End: 10-18-2024 ambulatory MAXINE ELLIS Facility:[facility] Start: 10-18-2024 End: 10-18-2024 [facility] Maxine Ellis CONTAINER WASHER MACHINE.CHANNELER OUTSOLE Work Phone: Psychiatry Comment on above: MARK (generalized anx iety disorder) (Primary Dx); Moderate episode of recurrent major depressive disorder (HCC); Social anxiety disorder; Encounter for long-term (current) use of medications; Psychosocial stressors Start: 10-09-2024 End: 10-09-2024 ambulatory TRISHA TAN PA-C Facility:[facility] Start: 10-08-2024 End: 10-08-2024 ambulatory TRISHA TAN PA-C Facility:[facility] Start: 09-13-2024 End: 11-13-2024 Follow-up encounter Nilesh RODRIGUEZ Work Phone: [facility] Start: 09-12-2024 End: 09-12-2024 Office outpatient visit 15 minutes Bharat Mosher MD Work Phone: [facility] Comment on above: URI, acute (Primary Dx) Start: 09-12-2024 End: 09-12-2024 ambulatory ISSAC FERNÁNDEZ Facility:[facility] Start: 08-14-2024 End: 08-14-2024 ambulatory ISSAC FERNÁNDEZ Facility:[facility] Start: 08-14-2024 End: 08-14-2024 [facility] Maxine Ellis APRN.CHANNELER OUTSOLE Work Phone: Psychiatry Comment on above: anxiety ( Primary Dx); Moderate episode of recurrent major depressive disorder (HCC); MARK (generalized anxiety disorder); Social anxiety disorder; Encounter for long-term (current) use of medications Start: 07-26-2024 End: 07-26-2024 Telephone encounter Maxine Ellis APRN.CNP Work Phone: Psychiatry Comment on above: Appointment Start: 06-28-2024 End: 06-28-2024 ambulatory Maxine Ellis APRN.CHANNELER OUTSOLE Work Phone: Psychiatry Comment on above: NO SHOW (Primary Dx) Start: 06-28-2024 End: 06-28-2024 Telemedicine consultation with patient Maxine Ellis APRN.CHANNELER OUTSOLE Work Phone: Psychiatry Start: 06-07-2024 ambulatory Lanie Antunez [employer] Faci lity:[facility] Start: 06-05-2024 End: 06-05-2024 Telephone encounter Issac Fernández MD Work Phone: [facility] [place] Comment on above: Breast Problem Start: 05-17-2024 End: 05-17-2024 [facility] Maxine Ellis APRN.CHANNELER OUTSOLE Work Phone: Psychiatry Comment on above: MARK (generalized anx iety disorder) (Primary Dx); anxiety; Social anxiety disorder; Moderate episode of recurrent major depressive disorder (HCC) Start: 05-14-2024 End: 05-14-2024 Subsequent hospital visit by physician Xr [facility] [place] Work Phone: Radiology Comment on above: Acute cough [R05.1] Start: 05-14-2024 End: 05-14-2024 ambulatory ISSAC FERNÁNDEZ Facility:[facility] Start: 05-14-2024 End: 05-14-2024 Patient encounter procedure Santos Soler APRN.CHANNELER OUTSOLE Work Phone: [facility] Comment on above: Sinobronchitis (Prim ambika Dx); Acute cough Start: 05-03-2024 End: 05-03-2024 ambulatory Lanie Antunez NP Facility:[facility] Start: 04-16-2024 ambulatory Lu Mcclain Facility :[facility] Start: 04-13-2024 End: 04-13-2024 [facility] Toshia Hess [facility] Work Phone: Psychology Comment on above: Major depressive dis order, recurrent episode, moderate (HCC) (Primary Dx); Generalized anxiety disorder Start: 03-21-2024 End: 03-21-2024 Telephone encounter Toshia Hess [facility] Work Phone: Psychology Comment on above: bh consult Start: 03-21-2024 End: 03-21-2024 Patient encounter procedure Veronica Muse APRN.CHANNELER OUTSOLE Work Phone: [facility] [place] Comment on above: Encounter for medica l examination to establish care (Primary Dx); Bipolar II disorder (HCC); Urinary frequency; Anxiety and depression Start: 03-21-2024 End: 03-21-2024 Patient encounter status Veronica Muse APRN.CHANNELER OUTSOLE Work Phone: [facility] Work Phone: Start: 01-27-2024 End: 01-27-2024 Patient encounter procedure Marychuy Calvin APRN.CHANNELER OUTSOLE Work Phone: [facility] Comment on above: Sore throat (Primary Dx) Start: 01-21-2024 End: 01-21-2024 Office outpatient visit 25 minutes Bharat Mosher MD Work Phone: [facility] Comment on above: Acute conjunctivitis of both eyes, unspecified acute conjunctivitis type (Primary Dx); Hordeolum externum right upper eyelid Start: 09-22-2023 End: 09-22-2023 ambulatory MD NO PRIMARY CARE [facility] Start: 07-08-2023 End: 07-08-2023 ambulatory No Primary Care Physician [facility] Work Phone: Start: 07-08-2023 End: 07-08-2023 Patient encounter procedure No Primary Care Physician [facility]Laboratory, Specimen Work Phone: Start: 07-08-2023 End: 07-08-2023 Patient encounter procedure No Primary Care Physician [facility] Work Phone: Start: 05-25-2023 End: 05-25-2023 Patient encounter procedure Becca Stearns PA-C Work Phone: [facility] Comment on above: Bacterial sinusitis (Primary Dx) Start: 04-01-2023 End: 04-01-2023 Patient encounter procedure No Primary Care Physician [facility] Work Phone: Start: 01-04-2023 End: 01-04-2023 ambulatory No Primary Care Physician [facility] Work Phone: Start: 01-04-2023 End: 01-04-2023 Patient encounter procedure No Primary Care Physician [facility] Start: 01-04-2023 End: 01-04-2023 Patient encounter procedure No Primary Care Physician [facility] Start: 12-19-2022 End: 12-19-2022 Patient encounter procedure No Primary Care Physician [facility] Start: 12-17-2022 Non-patient / Non-visit No Catherine trejo Care Physician [facility] Start: 12-16-2022 Non-patient / Non-visit No Catherine trejo Care Physician [facility] Start: 12-15-2022 Non-patient / Non-visit No Catherine neil Care Physician [facility] Start: 12-14-2022 Non-patient / Non-visit No Catherine trejo Care Physician [facility] Start: 12-13-2022 Non-patient / Non-visit No Catherine neil Care Physician [facility] Start: 12-13-2022 End: 12-17-2022 Evaluation and management of inpatient No Primary Care Phys[facility] Start: 12-10-2022 End: 12-10-2022 Patient encounter procedure No Primary Care Physician [facility] Start: 12-08-2022 End: 12-15-2022 ambulatory No Primary Care Physician [facility] Work Phone: Start: 12-08-2022 End: 12-15-2022 Discharged Recurring No Primary Care Physician [facility] Start: 12-07-2022 End: 12-07-2022 Patient encounter procedure No Primary Care Physician [facility] Start: 12-02-2022 End: 12-02-2022 Patient encounter procedure No Primary Care Physician [facility] Start: 11-29-2022 End: 11-29-2022 Patient encounter procedure No Primary Care Physician [facility], Specimen Start: 11-29-2022 End: 11-29-2022 Patient encounter procedure No Primary Care Physician [facility] Start: 11-26-2022 End: 11-26-2022 Patient encounter procedure No Primary Care Physician [facility] Start: 11-26-2022 End: 11-26-2022 Patient encounter procedure No Primary Care Physician [facility] Start: 11-23-2022 End: 11-23-2022 Patient encounter procedure No Primary Care Physician [facility] Start: 11-19-2022 End: 11-19-2022 Patient encounter procedure No Primary Care Physician [facility] Start: 11-16-2022 End: 11-16-2022 Patient encounter procedure No Primary Care Physician [facility] Start: 11-16-2022 End: 11-16-2022 Patient encounter procedure No Primary Care Physician [facility] Start: 11-13-2022 Non-patient / Non-visit No Catherine neil Care Physician [facility] Start: 11-11-2022 End: 11-11-2022 Patient encounter procedure No Primary Care Physician [facility] Start: 11-10-2022 End: 11-10-2022 Patient encounter procedure No Primary Care Physician [facility] Start: 11-03-2022 End: 11-03-[address] Dennis Recinos Work Phone: [facility] Start: 11-02-2022 End: 11-02-[address] Dennis Recinos Work Phone: [facility] Work Phone: Start: 11-02-2022 End: 11-02-[address] Dennis Recinos Work Phone: [facility] Start: 10-19-2022 End: 10-19-[address] Dennis Recinos Work Phone: [facility] Work Phone: Start: 10-19-2022 End: 10-19-[address] Dennis Recinos Work Phone: [facility] Start: 10-11-2022 End: 10-11-[address] Dennis Recinos Work Phone: [facility]-Pulmonary Services/Neurology Start: 10-08-2022 End: 10-08-[address] Dennis Recinos Work Phone: [facility] Start: 10-08-2022 Non-patient / Non-visit Dr. Mynor Recinos Work Phone: [facility] Start: 10-04-2022 End: 10-04-[address] Dennis Recinos Work Phone: [facility] Start: 09-23-2022 End: 09-23-2022 Non-patient / Non-visit Dr. Dennis Recinos Work Phone: [facility] Start: 09-23-2022 End: 09-23-[address] Dennis Recinos Work Phone: [facility] Work Phone: Start: 09-23-2022 End: 09-23-[address] Dennis Recinos Work Phone: [facility]-Pulmonary Services/Neurology Start: 09-22-2022 End: 09-22-[address] Dennis Recinos Work Phone: [facility] Start: 08-17-2022 End: 08-17-[address] Dennis Recinos Work Phone: [facility] Start: 08-10-2022 End: 08-10-[address] Dennis Recinos Work Phone: [facility] Work Phone: Start: 08-10-2022 End: 08-10-[address] Dennis Recinos Work Phone: [facility]Outpatient Pavilion Ultrasound Start: 07-20-2022 End: 07-20-[address] Dennis Recinos Work Phone: [facility] Start: 07-13-2022 End: 07-14-2022 Emergency department patient visit Dr. Dennis Recinos Work Phone: [facility]-Emergency Department Start: 06-14-2022 End: 06-14-[address] Dennis Recinos Work Phone: [facility] Start: 05-13-2022 End: 05-13-[address] Dennis Recinos Work Phone: [facility] Work Phone: Start: 05-13-2022 End: 05-13-[address] Dennis Recinos Work Phone: [facility]-Laboratory, Specimen Start: 05-13-2022 End: 05-13-[address] Dennis Recinos Work Phone: [facility] Start: 04-29-2022 End: 04-29-2022 Emergency department patient visit [facility]Emergency Department Start: 11-17-2021 Telephone encounter Rohan Villalba CONTAINER WASHER MACHINE.[employer] Work Phone: [facility] Comment on above: Results Start: 11-05-2021 End: 11-05-2021 Patient encounter procedure Becca Stearns PA-C Work Phone: [facility] Comment on above: Swelling of left higuera d (Primary Dx) Procedures Date Procedure Procedure Detail Performing Clinician Start: 03-03-2025 Iadna streptococcus group a amplified probe tq Rohan Villalba CONTAINER WASHER MACHINE.[employer] Work Phone: Start: 02-10-2025 Iadna streptococcus group a amplified probe tq Sierra Evelia CONTAINER WASHER MACHINE.[employer] Work Phone: Start: 01-31-2025 Mri brain brain stem w/o contrast material Issac Fernández MD Work Phone: Start: 12-27-2024 UA DIP,URINE HCG (POC) Issac Fernández MD Work Phone: Start: 12-27-2024 Ecg routine ecg w/le ast 12 lds i&r only Issac Fernández MD Work Phone: Start: 11-06-2024 BACTERIAL VAGINOSIS NAAT Jamal Cortez CONTAINER WASHER MACHINE.[employer] Work Phone: Start: 11-06-2024 Culture bacterial quanttative colony count urine Jamal Cortez CONTAINER WASHER MACHINE.[employer] Work Phone: Start: 11-06-2024 UA DIP,URINE HCG (POC) [facility] Provider Start: 11-06-2024 Urnls dip stick/tabl et rgnt auto w/o microscopy Trisha Tovar CONTAINER WASHER MACHINE.[employer] Work Phone: Start: 05-14-2024 Radiologic exam ches t 2 views Santos Soler CONTAINER WASHER MACHINE.[employer] Work Phone: Start: 03-21-2024 Urnls dip stick/tabl et rgnt auto w/o microscopy Veronica Muse CONTAINER WASHER MACHINE.[employer] Work Phone: Start: 01-27-2024 STREP A MOLECULAR (POC) Marychuy Calvin CONTAINER WASHER MACHINE.[facility] Work Phone: Start: 07-08-2023 Urine culture No [...] RSV Vaccine (1 - 1-dose 75+ series) [facility] Start: 11-03-2032 Urine microalbumin profile DTaP,Tdap,Td Vaccine (8 - Td or Tdap) [facility] Start: 03-22-2026 Annual PCP Team Chronic Disease Visit Annual PCP Team Chronic Disease Visit [facility] Start: 03-05-2026 Annual PCP Team Chronic Disease Visit Annual PCP Team Chronic Disease Visit [facility] Start: 02-05-2026 Urine microalbumin profile DTAP,TDAP,TD (7 - Td or Tdap) [facility] Start: 01-25-2026 Annual PCP Team Chronic Disease Visit Annual PCP Team Chronic Disease Visit [facility] Start: 12-27-2025 Annual PCP Team Chronic Disease Visit Annual PCP Team Chronic Disease Visit [facility] Start: 11-30-2025 Annual PCP Team Chronic Disease Visit Annual PCP Team Chronic Disease Visit [facility] Start: 05-02-2025 End: 05-02-2025 Nursing evaluation of patient and report 05/02/2025 9:15 AM EDT Nurse Visit [facility] [place] [address] [facility], [place] [id number] Nurse, Dc [address] [facility] [place], [place] [phone] Hep B #3 [facility] Comment on above: Hep B #3 Start: 04-29-2025 End: 04-29-2025 Patient encounter procedure 04/29/2025 11:00 AM EDT Office Visit [facility] [place] [address] [facility] [place] [phone] Issac Fernández MD [address] [facility] [place] [id number] 3 month follow up [facility] [place] Comment on above: 3 month follow up Start: 04-22-2025 Hepb vaccine adult 3 dose schedule for im use HEP B VACCINE, 3-DOSE, AGE 20+ YR (ENGERIX-B, RECOMBIVAX HB) Immunization/Injection Routine Need for vaccination Expected: 04/22/2025 (Approximate) [facility] Comment on above: Expected: 04/22/2025 (Approximate) Start: 04-19-2025 End: 04-19-2025 Patient encounter procedure 04/19/2025 1:30 PM EDT Appointment [facility] Cardiology [address] [place] [address] Positional lightheadedness [R42] [facility] Cardiology Comment on above: Positional lightheadedness [R42] Start: 04-19-2025 End: 04-19-2025 Patient encounter procedure 04/19/2025 10:55 AM EDT Office Visit Otolaryngology [address] [place] [address] Efrain Keenan PA-C [address] [place] [address] Sore throat [J02.9] Otolaryngology Comment on above: Sore throat [J02.9] Start: 04-19-2025 End: 04-19-2025 ambulatory 04/19/2025 8:00 AM EDT [facility] Psychiatry [address] [place] [address] Maxine Ellis, CONTAINER WASHER MACHINE.[employer]SOLE [address] [place] [address] Psychiatry Start: 04-02-2025 End: 04-02-2025 Patient encounter procedure 04/02/2025 8:00 AM EDT Office Visit Psychiatry [address] [place] [address] Maxine Ellis, CONTAINER WASHER MACHINE.[employer] [address] [place] [address] med check Psychiatry Comment on above: med check Start: 03-22-2025 End: 03-22-2025 Patient encounter procedure Cardiology Comment on above: Palpitations [R00.2] soft lump to right k nee area Start: 03-21-2025 Annual PCP Team Chronic Disease Visit Annual PCP Team Chronic Disease Visit [facility] Start: 03-21-2025 End: 03-21-2025 ambulatory 03/21/2025 11:00 AM EDT [facility] Psychiatry [address] [place] [address] Maxine Ellis, CONTAINER WASHER MACHINE.[employer]SOLE [address] [place] [address] side effects to medication Psychiatry Comment on above: side effects to medication Start: 03-18-[address] [facility] Start: 03-14-2025 End: 03-14-2025 Patient encounter procedure 03/14/2025 8:00 AM EDT Office Visit Neurology [address] [place] [address] [place] [phone] Citlali Ceja PA-C [address] [place] [address] Migraine without status migrainosus, not intractable, unspecified migraine type ... Neurology Comment on above: Migraine without status migrainosus, not intractable, unspecified migraine type ... Start: 03-11-2025 End: 06-10-2025 Hemoglobin A1c in Blood HEMOGLOBIN A1C Lab Routine Hx of gestational diabetes mellitus, not currently Expected: 03/11/2025, Expires: 06/10/2025 [facility] Work Phone: Comment on above: Expected: 03/11/2025, Expires: Start: 03-05-2025 End: 06-04-2025 BLOOD TB SCREEN BLOOD TB SCREEN Lab Routine Screening-pulmonary TB Expected: 03/05/2025, Expires: 06/04/2025 [facility] Work Phone: Comment on above: Expected: 03/05/2025, Expires: Start: 03-05-2025 End: 03-05-2025 Patient encounter procedure 03/05/2025 11:00 AM EDT Office Visit [facility] [place] [address] [place], [place] [phone] PodlogarVeronica APRN.CHANNELER OUTSOLE [address] [place], [place] [phone] physical-needs paperwork filled out for [facility] Comment on above: physical-needs paperwork filled out for [facility] Start: 02-22-2025 End: 02-22-2025 Patient encounter procedure 02/22/2025 1:00 PM EDT Office Visit Neurology [address] [place] [address] [place] [phone] Citlali Ceja PA-C [address] [place], [place] [phone] Migraine without status migrainosus. Neurology Comment on above: Migraine without status migrainosus. Start: 02-18-2025 End: 05-20-[address] [facility] Comment on above: Expected: 02/18/2025, Expires: Start: 02-18-2025 End: 05-20-2025 Thyroxine (T4) free [Mass/volume] in Serum or Plasma [facility] Comment on above: Expected: 02/18/2025, Expires: Start: 02-18-2025 End: 05-20-2025 Triiodothyronine (T3) [Mass/volume] in Serum or Plasma [facility] Work Phone: Comment on above: Expected: 02/18/2025, Expires: Start: 02-14-2025 End: 05-16-2025 Comprehensive metabolic 2000 panel - Serum or Plasma [facility] Work Phone: Comment on above: Expected: 02/14/2025, Expires: Start: 02-13-2025 End: 02-13-2025 Patient encounter procedure 02/13/2025 7:30 AM EDT Office Visit Neurology [address] [place], [place] [phone] Citlali Ceja PA-C [address] [place], [place] [phone] Dx: Migraine without status migrainosus, not intractable, [...] AM EDT Appointment Radiology [address] [place], [place] [phone] Dx: Migraine without status migrainosus, not intractable, [...] PM EDT Office Visit Cardiology [address] [place], [place] [phone] Dx: Palpitations [R00.2]; Tachycardia [R00.0] Cardiology Comment on above: Dx: Palpitations [R00.2]; Tachycardia [R 00.0] Start: 01-25-2025 End: 01-25-2025 Patient encounter procedure 01/25/2025 10:00 AM EDT Office Visit [facility] [place] [address] [place], [place] [phone] Issac Fernández MD [address] [place], [place] [phone] Follow up palpitations and new symptoms [facility] Comment on above: Follow up palpitations and new symptoms Start: 01-11-2025 End: 01-11-2025 Patient encounter procedure 01/11/2025 3:30 PM EDT Office Visit Cardiology [address] [place], [place] [phone] Dx: Palpitations [R00.2]; Tachycardia [R00.0] Cardiology Comment on above: Dx: Palpitations [R00.2]; Tachycardia [R 00.0] Start: 12-27-2024 End: 03-28-2025 CBC W Auto Differential panel - Blood COMPLETE BLOOD COUNT AND DIFFERENTIAL Lab Routine Palpitations Tachycardia Expected: 12/27/2024, Expires: 03/28/2025 [facility] Work Phone: Comment on above: Expected: 12/27/2024, Expires: Start: 12-27-2024 End: 03-28-2025 Comprehensive metabolic 2000 panel - Serum or Plasma COMPREHENSIVE METABOLIC PANEL Lab Routine Palpitations Tachycardia Expected: 12/27/2024, Expires: 03/28/[address] [facility] Comment on above: Expected: 12/27/2024, Expires: Start: 12-27-2024 End: 03-28-2025 Magnesium [Mass/volume] in Serum or Plasma MAGNESIUM Lab Routine Palpitations Tachycardia Expected: 12/27/2024, Expires: 03/28/[address] [facility] Comment on above: Expected: 12/27/2024, Expires: Start: 12-27-2024 End: 03-28-2025 Thyrotropin [Units/volume] in Serum or Plasma THYROID STIMULATING HORMONE Lab Routine Palpitations Tachycardia Expected: 12/27/2024, Expires: 03/28/[address] [facility] Comment on above: Expected: 12/27/2024, Expires: Start: 12-27-2024 End: 12-27-2024 Patient encounter procedure 12/27/2024 12:20 PM EDT Office Visit [facility] [place] [address] [place], [place] [id number] Issac Fernández MD [address] [place], [place] [phone] Migraines. Random Elevated HR. See triage. [facility] Comment on above: Migraines. Random Elevated HR. See bryson javier Start: 12-03-2024 End: 12-03-2024 Nursing evaluation of patient and report 12/03/2024 9:15 AM EDT Nurse Visit [facility] [place] [address] [place], [place] [phone] Nurse, Dc [address] [place], [place] [address] Hep B #2 [facility] Comment on above: Hep B #2 Start: 11-23-2024 Hepb vaccine adult 3 dose schedule for im use HEP B VACCINE, 3-DOSE, AGE 20+ YR (ENGERIX-B, RECOMBIVAX HB) Immunization/Injection Routine Need for vaccination Expected: 11/23/2024 (Approximate) [facility] Comment on above: Expected: 11/23/2024 (Approximate) Start: 11-23-2024 End: 11-23-2024 Orders Only 11/23/2024 Orders Only [facility] [address] [facility] [place] [address] Issac Fernández MD [address] [facility] [place] [address] Need for vaccination [facility] Comment on above: Need for vaccination Start: 11-22-2024 End: 11-22-2024 Follow-up encounter 11/22/2024 8:00 AM EDT [facility] Psychiatry [address] [facility] [place] [address] Maxine Ellis, CONTAINER WASHER MACHINE.[employer]ER [employer]SOLE [address] [place] [address] 4-6 week follow up Psychiatry Comment on above: 4-6 week follow up Start: 11-01-2024 End: 11-01-2024 Nursing evaluation of patient and report 11/01/2024 8:30 AM EDT Nurse Visit [facility] [address] [facility] [place] [address] Nurse, Dc [address] [facility] [address] Hep B vaccine series (injection 1) [facility] Comment on above: Hep B vaccine series (injection 1) Start: 09-25-2024 End: 09-25-2024 Follow-up encounter 09/25/2024 8:30 AM EDT [facility] Psychiatry [address] [facility] [place] [address] Maxine Ellis, CONTAINER WASHER MACHINE.CHANNELER OUTSOLE [address] [facility] [place] [address] 6 week follow up Psychiatry Comment on above: 6 week follow up Start: 08-14-2024 End: 11-13-2024 Comprehensive metabolic 2000 panel - Serum or Plasma COMPREHENSIVE METABOLIC PANEL Lab Routine Encounter for long-term (current) use of medications Expected: 08/14/2024, Expires: 11/13/2024 [facility] Work Phone: Comment on above: Expected: 08/14/2024, Expires: Start: 08-14-2024 End: 08-14-2024 [facility] 08/14/2024 8:30 AM EST [facility] Psychiatry [address] [place] [address] Maxine Ellis, CONTAINER WASHER MACHINE.[employer]ER OUTSOLE [address] [place] [address] Provider Ordered Follow Up Psychiatry Comment on above: Provider Ordered Follow Up Start: 06-28-2024 End: 06-28-2024 Follow-up encounter Psychiatry Comment on above: follow up Start: 2024 Screening for malignant neoplasm of cervix Cervical Cancer Screening [facility] Start: 05-17-2024 End: 05-17-2024 Patient encounter procedure 05/17/2024 10:00 AM EDT [facility] Psychiatry [address] [place] [address] Maxine Ellis, CONTAINER WASHER MACHINE.[employer]ER OUTSOLE [address] [place] [address] New consult, Bipolar II Psychiatry Comment on above: New consult, Bipolar II Start: 04-23-2024 End: 04-23-2024 ambulatory 04/23/2024 1:00 PM EDT [facility] Psychology [address] [id number] Toshia Hess [facility] [address] [place], [place] [phone] Return in about 2 weeks (around 04/27/2024). Psychology Comment on above: Return in about 2 weeks (around 04/27/20 24). Start: 03-21-2024 End: 06-20-2024 CBC W Auto Differential panel - Blood COMPLETE BLOOD COUNT AND DIFFERENTIAL Lab Routine Encounter for medical examination to establish care Expected: 03/21/2024, Expires: 06/20/2024 [facility] Work Phone: Comment on above: Expected: 03/21/2024, Expires: Start: 03-21-2024 End: 06-20-2024 Comprehensive metabolic 2000 panel - Serum or Plasma COMPREHENSIVE METABOLIC PANEL Lab Routine Encounter for medical examination to establish care Expected: 03/21/2024, Expires: 06/20/[address] [facility] Comment on above: Expected: 03/21/2024, Expires: Start: 03-21-2024 End: 06-20-2024 Thyrotropin [Units/volume] in Serum or Plasma THYROID STIMULATING HORMONE Lab Routine Anxiety and depression Expected: 03/21/2024, Expires: 06/20/[address] [facility] Comment on above: Expected: 03/21/2024, Expires: Start: 03-18-2024 Covid-19 Vaccine ( season) Covid-19 Vaccine ( season) [facility] Start: 03-18-2024 Covid-19 Vaccine ( season) Covid-19 Vaccine ( season) [facility] Start: 03-18-2024 Influenza vaccination Influenza Vaccine (#1) [facility] Start: 08-27-2023 ASTHMA ACTION PLAN ASTHMA ACTION PLAN [facility] Start: 03-18-2023 Covid-19 Vaccine ( season) Covid-19 Vaccine ( season) [facility] Start: 03-18-2023 Influenza vaccination Influenza Vaccine (#1) [facility] Start: 12-17-2022 Patient discharge [facility] Start: 12-15-2022 Administration of medication [facility] Start: 12-15-2022 Application of ice collar, cap or bag [facility] Start: 12-15-2022 Catheterization of vein [facility] Start: 12-15-2022 Introduction of urinary catheter [facility] Start: 12-15-2022 Measuring intake and output [facility] Start: 12-15-2022 Notification of physician [facility] Start: 12-15-2022 Procedure discontinued [facility] Start: 12-15-2022 Provision of activity privileges [facility] Start: 12-15-2022 Vital signs measurements [facility] Start: 12-15-2022 [facility] Start: 12-13-2022 Admission procedure [facility] Start: 12-13-2022 Verification routine [facility] Start: 11-16-2022 CHLAMYDIA SCREENING (18-24) CHLAMYDIA SCREENING (18-24) [facility] Start: 11-16-2022 GC (GONORRHEA) SCREENING (18-24) GC (GONORRHEA) SCREENING (18-24) [facility] Start: 11-16-2022 Screening for Chlamydia trachomatis Chlamydia Screening (18-24) [facility] Start: 11-11-2022 Patient referral [facility] Work Phone: Start: 11-10-2022 Nonstress test [facility] Start: 11-10-2022 Obstetric monitoring [facility] Start: 11-10-2022 Vital signs measurements [facility] Start: 11-10-2022 [facility] Start: 11-10-2022 Iv infusion therapy/prophylaxis /dx 1st to 1 hr THER/PROPH/DIAG IV INF INIT [facility] Start: 11-10-2022 Patient discharge [facility] Start: 09-22-2022 Patient referral [facility] Work Phone: Start: 08-27-2022 Adult depression screening assessment DEPRESSION SCREENING [facility] Start: 08-27-2022 ANNUAL PCP TEAM CHRONIC DISEASE VISIT ANNUAL PCP TEAM CHRONIC DISEASE VISIT [facility] Start: 08-27-2022 ASTHMA CONTROL TEST ASTHMA CONTROL TEST [facility] Start: 05-13-2022 Chlamydia deoxyribonucleic acid detection [facility] Work Phone: Start: 03-18-2022 Influenza vaccination INFLUENZA (Season Ended) [facility] Start: 2021 CHLAMYDIA SCREENING (18-24) CHLAMYDIA SCREENING (18-24) [facility] Start: 2021 GC (GONORRHEA) SCREENING (18-24) GC (GONORRHEA) SCREENING (18-24) [facility] Start: 2021 HEPATITIS C SCREENING HEPATITIS C SCREENING [facility] Start: 2021 Hepatitis C screening Hepatitis C Screening [facility] Start: 2021 HIV SCREENING HIV SCREENING [facility] Start: 2021 HIV screening HIV Screening [facility] Start: [address] [facility] Start: 2019 Meningococcal B Vaccine (1 of 2 - Standard) Meningococcal B Vaccine (1 of 2 - Standard) [facility] Start: 2019 Meningococcal B Vaccine: Consider Based On Risk (1 of 2 - Patient Seeks Protection) Meningococcal B Vaccine: Consider Based On Risk (1 of 2 - Patient Seeks Protection) [facility] Start: 2019 MENINGOCOCCAL CONJUGATE (2 - 2-dose series) MENINGOCOCCAL CONJUGATE (2 - 2-dose series) [facility] Start: 2017 PEDS TO ADULT TRANSITION ANNUAL ASSESSMENT PEDS TO ADULT TRANSITION ANNUAL ASSESSMENT [facility] Start: 2015 PEDS TO ADULT TRANSITION INITIAL DISCUSSION PEDS TO ADULT TRANSITION INITIAL DISCUSSION [facility] Start: 2013 MENINGOCOCCAL B: Consider based on risk (1 of 2 - Risk Bexsero 2-dose series) MENINGOCOCCAL B: Consider based on risk (1 of 2 - Risk Bexsero 2-dose series) [facility] Start: 2009 Pneumococcal vaccination Pneumococcal Vaccine (1 - PCV) [facility] Start: 2008 COVID-19 VACCINE (1) [facility] Start: 2003 Covid-19 Vaccine (#1) Covid-19 Vaccine (#1) [facility] Cardiovascular funct ion eval w/tilt table w/mntr TILT TABLE EVALUATION Cardiology Routine Positional lightheadedness Ordered: 03/14/2025 [facility] Work Phone: Comment on above: Ordered: 03/14/2025 CBC W Auto Different ial panel - Blood [facility] Work Phone: CBC W Auto Different ial panel - Blood [facility] CBC W Auto Different ial panel - Blood [facility] COVID & INFLUENZA A/ B & RSV PCR, ROUTINE COVID & INFLUENZA A/B & RSV PCR, ROUTINE Microbiology Routine URI, acute Ordered: 09/12/2024 [facility] Work Phone: Comment on above: Ordered: 09/12/2024 ECG COMPLETE ECG COMPLETE ECG Routine Palpitations Tachycardia 12/27/2024 12:[address] [facility] End: 12-27-2025 Echocardiography ECHO Cardiology LEIGH ANN Palpitations Tachycardia 1 Occurrences starting 12/27/2024 until 12/27/[address] [facility] Comment on above: 1 Occurrences starting 12/27/2024 until 12/27/2025 Glucose [Mass/volume ] in Serum or Plasma --1 hour post 50 g glucose PO [facility] Hematocrit [Volume Fraction] of Blood [facility] Hemoglobin [Mass/vol ume] in Blood [facility] Hemoglobin A1c/Hemoglobin.total in Blood [facility] Hepatitis B surface antigen measurement [facility] Work Phone: Hepatitis B surface antigen measurement [facility] Hepatitis B surface antigen measurement [facility] Hepatitis C antibody measurement [facility] Work Phone: Hepatitis C antibody measurement [facility] Hepatitis C antibody measurement [facility] Hepb vaccine adult 3 dose schedule for im use HEP B VACCINE, 3-DOSE, AGE 20+ YR (ENGERIX-B, RECOMBIVAX HB) Immunization/Injection Routine Need for vaccination Ordered: 10/24/2024 [facility] Work Phone: Comment on above: Ordered: 10/24/2024 HIV 1+2 Ab+HIV1 p24 Ag [Presence] in Serum or Plasma by Immunoassay [facility] [facility] Work Phone: HIV 1+2 Ab+HIV1 p24 Ag [Presence] in Serum or Plasma by Immunoassay [facility] HIV 1+2 Ab+HIV1 p24 Ag [Presence] in Serum or Plasma by Immunoassay [facility] Leukocytes [#/volume ] in Blood [facility] Mean corpuscular hemoglobin concentration determination [facility] Mean corpuscular hemoglobin determination [facility] End: 02-24-2026 MR Brain WO contrast MRI BRAIN WO IVCON Radiology LEIGH ANN Migraine without status migrainosus, not intractable, unspecified migraine type Unsteadiness on feet Numbness and tingling Demyelinating disease of central nervous system (HCC) 1 Occurrences starting 01/25/2025 until 02/24/2026 [facility] Work Phone: Comment on above: 1 Occurrences starting 01/25/2025 until 02/24/2026 Neisseria gonorrhoea e rRNA [Presence] in Unspecified specimen by REYNALDO with probe detection [facility] Work Phone: Neutrophil count [facility] Neutrophil percent differential count [facility] OUTSIDE VENDOR CARDI AC OUTPATIENT EXTENDED RHYTHM RECORDING (WITHOUT TELEMETRY) OUTSIDE VENDOR CARDIAC OUTPATIENT EXTENDED RHYTHM RECORDING (WITHOUT TELEMETRY) Holter Routine Palpitations Tachycardia Ordered: 12/27/[address] [facility] Comment on above: Ordered: 12/27/2024 Patient Education [facility] Work Phone: Patient referral [facility] Work Phone: PCR test for Chlamyd ia trachomatis [facility] Work Phone: Platelets [#/volume] in Blood [facility] Red blood cell count [facility] Red cell distributio n width determination [facility] Removal impacted cer umen instrumentation unilat REMOVAL OF IMPACTED CERUMEN - INSTRUMENTATION Procedures Routine Impacted cerumen of right ear Ordered: 02/07/2025 [facility] Work Phone: Comment on above: Ordered: 02/07/2025 Rubella IgG measurement [facility] Work Phone: Rubella IgG measurement [facility] Rubella IgG measurement [facility] Treponema sp Ab [Presence] in Serum [facility] Work Phone: Treponema sp Ab [Presence] in Serum [facility] Treponema sp Ab [Presence] in Serum [facility] Ultrasound scan for growth [facility] Urine test visual color cmprsn meths HCG QUAL UR B/O Lab Routine Urinary frequency Ordered: 11/06/2024 [facility] Work Phone: Comment on above: Ordered: 11/06/2024 Urine test visual color cmprsn meths HCG QUAL UR B/O Lab Routine Encounter for test, result unknown Ordered: 12/27/[address] [facility] Comment on above: Ordered: 12/27/2024 [facility] Immunizations Immunization Date Immunization Notes Care Provider Jessie don 11-01-2024 hepatitis B vaccine, adult dosage Mi Nurse Work Phone: [facility] 11-03-2022 tetanus toxoid, redu joesph diphtheria toxoid, and acellular pertussis vaccine, adsorbed Dr. Dennis Recinos Work Phone: [facility] 07-20-2017 Human Papillomavirus 9-valent vaccine Becca Stearns PA-C Work Phone: [facility] Work Phone: 07-20-2017 influenza virus vacc ine, unspecified formulation Becca Stearns PA-C Work Phone: [facility] 02-06-2016 Human Papillomavirus 9-valent vaccine Becca Stearns PA-C Work Phone: [facility] Work Phone: 02-06-2016 meningococcal polysaccharide (groups A, C, Y and W-135) diphtheria toxoid conjugate vaccine (MCV4P) Becca Stearns PA-C Work Phone: [facility] Work Phone: 02-06-2016 tetanus toxoid, redu joesph diphtheria toxoid, and acellular pertussis vaccine, adsorbed Becca Stearns PA-C Work Phone: [facility] Work Phone: 02-06-2016 varicella virus vaccine Becca Stearns PA-C Work Phone: [facility] Work Phone: 05-12-2009 influenza virus vacc ine, live, attenuated, for intranasal use Becca Stearns PA-C Work Phone: [facility] Work Phone: 02-11-2009 diphtheria, tetanus toxoids and acellular pertussis vaccine Becca Stearns PA-C Work Phone: [facility] Work Phone: 02-11-2009 measles, mumps and rubella virus vaccine Becca Athy PA-C Work Phone: [facility] Work Phone: 02-11-2009 poliovirus vaccine, inactivated Becca Athy PA-C Work Phone: [facility] Work Phone: 01-05-2005 diphtheria, tetanus toxoids and acellular pertussis vaccine Becca Athy PA-C Work Phone: [facility] 01-05-2005 haemophilus influenz ae type b vaccine, HbOC conjugate Becca Athy PA-C Work Phone: [facility] 01-05-2005 pneumococcal conjuga te vaccine, 7 valent Becca Athy PA-C Work Phone: [facility] 09-02-2004 measles, mumps and rubella virus vaccine Becca Athy PA-C Work Phone: [facility] 09-02-2004 varicella virus vaccine Becca Athy PA-C Work Phone: [facility] 04-22-2004 pneumococcal conjuga te vaccine, 7 valent Becca Athy PA-C Work Phone: [facility] 01-22-2004 diphtheria, tetanus toxoids and acellular pertussis vaccine Becca Athy PA-C Work Phone: [facility] 01-22-2004 haemophilus influenz ae type b vaccine, HbOC conjugate Becca Athy PA-C Work Phone: [facility] 01-22-2004 hepatitis B vaccine, pediatric or pediatric/adolescent dosage Becca Athy PA-C Work Phone: [facility] 01-22-2004 poliovirus vaccine, inactivated Becca Athy PA-C Work Phone: [facility] 2003 diphtheria, tetanus toxoids and acellular pertussis vaccine Becca Athy PA-C Work Phone: [facility] 2003 haemophilus influenz ae type b vaccine, HbOC conjugate Becca Athy PA-C Work Phone: [facility] 2003 pneumococcal conjuga te vaccine, 7 valent Becca Athy PA-C Work Phone: [facility] 2003 poliovirus vaccine, inactivated Becca Athy PA-C Work Phone: [facility] 2003 diphtheria, tetanus toxoids and acellular pertussis vaccine Becca Athy PA-C Work Phone: [facility] 2003 haemophilus influenz ae type b vaccine, HbOC conjugate Becca Athy PA-C Work Phone: [facility] 2003 pneumococcal conjuga te vaccine, 7 valent Becca Athy PA-C Work Phone: [facility] 2003 poliovirus vaccine, inactivated Becca Athy PA-C Work Phone: [facility] 2003 hepatitis B vaccine, pediatric or pediatric/adolescent dosage Becca Athy PA-C Work Phone: [facility] 2003 hepatitis B vaccine, pediatric or pediatric/adolescent dosage Becca Athy PA-C Work Phone: [facility] Payers Date Payer Category Payer Private Health Insurance [id number] 2024 Self-pay [id number] 2023 Private Health Insurance [id number] 2020 Private Health Insurance [id number] 2011 Private Health Insurance [employer] Sanju CARRNA CHOICE POS II [id number] 2011-Present [phone] [address] [place] [address] POS [id number] 2003 Unknown [id number] 79 2003 Unknown [id number] 27 2003 Unknown [id number] 27 Private Health Insurance AETNA [id number] Unknown [employer] BL[employer] ACCESS PPO [id number] Unknown [id number] Unknown [id number] Unknown [facility] [id number] Unknown [id number] 62 Unknown [id number] 62 Unknown [id number] 62 Unknown [id number] 62 Unknown [id number] 62 Unknown [id number] 62 Unknown [id number] [id number] 62 Unknown [id number] [id number] 62 Unknown [id number] [id number] 62 Unknown [id number] [id number] 62 Unknown [id number] [id number] 62 Unknown [id number] [id number] 62 Unknown [id number] [id number] 62 Unknown [id number] [id number] 62 Unknown [id number] 62 Social History Date Type Detail Facility Start: 05-25-2023 Tobacco smoking stat us NHIS Never smoked tobacco [facility] Start: 11-05-2021 End: 03-28-2025 Alcohol intake Lifetime non-drinker (finding) [facility] Start: 11-05-2021 History SDOH Alcohol Frequency [address] [facility] Start: 2003 Sex Assigned At Not on file C [facility] Start: 10-26-2021 End: 11-16-2021 Exposure to SARS-CoV-2 (event) Not sure [facility] Start: 11-02-2017 End: 07-08-2023 Tobacco smoking status NHIS Unknown if ever smoked [facility] Start: 2003 Sex Assigned At Female W [facility] Start: 05-07-2023 [facility] Start: 05-25-2023 Tobacco use and exposure Smoke less tobacco non-user [facility] Start: 05-25-2023 End: 03-20-2024 History of Social function [facility] Start: 05-25-2023 End: 03-20-[address] use [address] [facility] Start: 06-18-2012 National Score (1-10 0), lower number is lower risk [address] [facility] Do you belong to any clubs or organizations such as confucianism groups, unions, fraternal or athletic groups, or school groups? No [facility] Are you now , , , , never or living with a partner? Living with partner [facility] How often to you hav e a drink containing alcohol? Never [facility] How hard is it for y ou to pay for the very basics like food, housing, medical care, and heating Not very hard [facility] Do you feel stress - tense, restless, nervous, or anxious, or unable to sleep at night because your mind is troubled all the time - these days [OSQ] Rather much [facility] (I/We) worried wheth er (my/our) food would run out before (I/we) got money to buy more. Never true [facility] Medical Equipment Procedure Code Equipment Code Equipment [...] 10/23/2014 9:03 AM Allyson Burk MA No [facility] 10-23-2014 Are you blind, or do you have serious difficulty seeing, even when wearing glasses No 10/23/2014 9:03 AM Allyson Burk MA No [facility] 10-23-2014 Do you have serious difficulty walking or climbing stairs No 10/23/2014 9:03 AM Allyson Burk MA No [facility] 10-23-2014 Do you have difficul ty dressing or bathing No 10/23/2014 9:03 AM Allyson Burk MA No [facility] Mental Status Date Assessment Result Facility 10-23-2014 Because of a physica l, mental, or emotional condition, do you have serious difficulty concentrating, remembering, or making decisions No 10/23/2014 9:03 AM EDT Allyson Peters MA No [facility] Clinical Notes 11-05-2021 to 04-02-2025 Maxine Ellis APRN.CNP - 04/02/2025 8:29 AM EDTTelephone Encounter - Antoinette Burgess RN - 04/01/2025 1:33 PM EDTTelephone Encounter - Antoinette Burgess RN - 04/01/2025 1:33 PM EDT Note Date & Type Note Facility 04-02-2025 Note HNO ID: [id number] Author: MAXINE ELLIS APRN.SUSANA Service: ? Author Type: Nurse Practitioner Type: Progress Notes Filed: 04/02/2025 08:29 Note Text: Patient did not come in for her follow up appointment with the provider. [facility] 04-02-2025 History of Presen t illness Narrative Patient did not come in for her follow up appointment with the provider. documented in this encounter [facility] 04-01-2025 Telephone encounter Note Patient calls and states that she has had a lot of head pressure since Tuesday. Patient states that she gets like this when she has something viral going on. Patient asking provider what she should be doing for this? Patient was seen ER for this on 03/28/2025. Antoinette Burgess RN [facility] 04-01-2025 Miscellaneous Notes Patient calls and states that she has had a lot of head pressure since Tuesday. Patient states that she gets like this when she has something viral going on. Patient asking provider what she should be doing for this? Patient was seen ER for this on 03/28/2025. Antoinette Burgess RN documented in this encounter [facility] 03-28-2025 Note HNO ID: [id number] Author: BHARAT MOSHER MD Service: ? Author [...] her PCP last week. Her children have ziei-mngc-pdp-mouth disease. She was exposed to COVID and works in a [employer]. She has taken Advil sinus for symptoms [...] The patient was other (comment) (referred to [facility]). Procedures [facility] 03-28-2025 History of Presen t illness [...] her PCP last week. Her children have qirp-jgiv-jhd-mouth disease. She was exposed to COVID and works in a [employer]. She has taken Advil sinus for symptoms [...] The patient was other (comment) (referred to [facility]). Procedures documented in this encounter [facility] 03-27-2025 Telephone encounter Note Behavioral Health Social Work Progress Note Patient [facility] for [facility] from: [facility]CP [facility] encounter type: Telephone Encounter Attempts to Outreach: 4 attempts Referral made: Psychology - Internal Psychology-Internal referral type: Therapy Final Disposition: Care established with Patient Discharged?: No therapist returned patient's call, left [facility] for patient to return call to scheduled therapy appointment. MARGARETTE Henderson-S March 27, [address] [facility] Work Phone: 03-27-2025 Miscellaneous Notes Behavioral Health Social Work Progress Note Patient identified for [facility] from: [facility]CP [facility] encounter type: Telephone Encounter Attempts to Outreach: 4 attempts Referral made: Psychology - Internal Psychology-Internal referral type: Therapy Final Disposition: Care established with Patient Discharged?: No therapist returned patient's call, left [facility] for patient to return call to scheduled therapy appointment. MARGARETTE Henderson-S March 27, 2025 documented in this encounter [facility] 03-25-2025 Instructions Maxine Ellis, CONTAINER WASHER MACHINE.CHANNELER OUTSOLE - 03/25/2025 8:50 PM EDT - Take amitriptyline (Elavil) exactly as prescribed: 10 mg at bedtime for 1 week, then 20 mg at bedtime for 1 week, then switch to the 25 mg tablet at bedtime for 4 weeks. The prescription (30 tablets, 2 refills) has been sent to [facility] in [place]. - Take amitriptyline with food to help [...] - Avoid reassurance-seeking behaviors: delete or password-protect Dragonplay, Giftango, and health apps; block websites or turn [...] the National Suicide Prevention Lifeline at 988 (467.518.1366) --text the Crisis Text Line (text HOME to 347993) --call 911 and let them know you are having a mental health crisis or go to your nearest Emergency Room for stabilization. --You can also call Mobile Crisis at 900-052-3345. -- You may call the department appointment line at [phone] to schedule your appointment. -- Please call my nurse at [phone] or send me a message in [employer] with any questions or concerns between appointments. documented in this encounter [facility] 03-22-2025 Instructions Issac Fernández MD - 03/22/2025 [...] Access your after-visit summary and paperwork in [employer] at your convenience. - Keep your routine follow-up appointment in April as scheduled. documented in this encounter [facility] 03-22-2025 Note HNO ID: [id number] Author: ISSAC FERNÁNDEZ MD Service: ? Author [...] follow up after echo results. Recording using [employer] software for draft documentation of the visit was discussed with the patient/authorized insurance verification representative; all questions welcomed and answered. Patient/authorized insurance verification representative agreed to proceed HPI Shawanda Brink [...] PMH - PAST MEDICAL HISTORY OF vascular otoniel left ankle Previous Surgical History PAST SURGICAL HISTORY Procedure Laterality Date NONE Family History FAMILY HISTORY Problem Relation Age of Onset Ange Disease Mother other (pulmnary embolism) Father other (mass on liver) Father other (depression and anxiety) Maternal Grandmother Cervical Cancer Maternal Grandmother other ([place]) Maternal Grandfather 49 other (depression and anxiety) [...] no evidence of (more content not included)... [facility] 03-22-2025 History of Presen t illness [...] follow up after echo results. Recording using [employer] software for draft documentation of the visit was discussed with the patient/authorized insurance verification representative; all questions welcomed and answered. Patient/authorized insurance verification representative agreed to proceed HPI Shawanda Brink [...] PMH - PAST MEDICAL HISTORY OF vascular otoniel left ankle Previous Surgical History PAST SURGICAL HISTORY Procedure Laterality Date NONE Family History FAMILY HISTORY Problem Relation Age of Onset Ange Disease Mother other (pulmnary embolism) Father other (mass on liver) Father other (depression and anxiety) Maternal Grandmother Cervical Cancer Maternal Grandmother other ([place]) Maternal Grandfather 49 other (depression and anxiety) [...] Drug use: Never documented in this encounter [facility] 03-21-2025 Telephone encounter Note Patient telephoned and notified of providers recommendations below. Voices understanding. Yohana Bird LPN [facility] 03-21-2025 Miscellaneous Notes Patient telephoned and notified of providers recommendations below. Voices understanding. Yohana Bird LPN If lump is increasing in size, becomes tender, arm to touch or she has a fever would recommend either Express Care eval or ER eval if after hours. If develops arm/leg weakness, visual changes, dizziness, lightheadedness, slurred speech, facial drooping or confusion go to ER. Veronica Muse APRN.CNP Triage Protocol recommends pt to be seen [...] file. Protocols Used Skin Lump or Localized Hllenotx-NQLND-LN -NO Shortness of Breath, chest pain. documented in this encounter [facility] 03-21-2025 Telephone encounter Note If lump is increasing in size, becomes tender, arm to touch or she has a fever would recommend either Express [facility] eval or ER eval if after hours. If develops arm/leg weakness, visual changes, dizziness, lightheadedness, slurred speech, facial drooping or confusion go to ER. Veronica Muse APRN.CHANNELER OUTSOLE [facility] 03-21-2025 Telephone encounter Note Triage Protocol recommends [...] file. Protocols Used Skin Lump or Localized Wjmjoqgo-VIJAM-IP -NO Shortness of Breath, chest pain. [facility] 03-21-2025 Note HNO ID: [id number] Author: MAXINE ELLIS APRN.CHANNELER OUTSOLE Service: ? Author Type: Nurse Practitioner Type: [...] visit. Either the patient or their legal insurance verification representative has been informed of the risks and benefits of -- and alternatives to -- treatment through a remote evaluation and consents to proceed with the evaluation remotely. Recording using ambient Lighting by [employer] software for draft documentation of the visit was discussed with the patient/authorized insurance verification representative; all questions welcomed and answered. Patient/authorized insurance verification representative agreed to proceed CC: Outpatient follow-up [...] since August. She frequently uses Google and FOUND[employer] to research symptoms, which exacerbates her anxiety. [...] process of weaning. 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 She reports [...] PMH - PAST MEDICAL HISTORY OF vascular otoniel left ankle PAST SURGICAL HISTORY Procedure Laterality [...] VITAL SIGNS: There (more content not included)... [facility] 03-21-2025 History of Presen t illness [...] visit. Either the patient or their legal insurance verification representative has been informed of the risks and benefits of -- and alternatives to -- treatment through a remote evaluation and consents to proceed with the evaluation remotely. Recording using [employer] software for draft documentation of the visit was discussed with the patient/authorized insurance verification representative; all questions welcomed and answered. Patient/authorized insurance verification representative agreed to proceed CC: Outpatient follow-up [...] since August. She frequently uses Google and Gift[employer] to research symptoms, which exacerbates her anxiety. 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 She reports [...] PMH - PAST MEDICAL HISTORY OF vascular otoniel left ankle PAST SURGICAL HISTORY Procedure Laterality [...] (current) use of medications (Z79.899) - Monitor exterminator helper termite side effects related to Amitriptyline. Increase dose [...] TIME: 11:07 AM documented in this encounter [facility] 03-19-2025 Telephone encounter Note Reviewed. Veronica Muse APRN.CNP [facility] 03-19-2025 Miscellaneous Notes Reviewed. Veronica Muse APRN.CNP [...] Bela Martinez RN documented in this encounter [facility] 03-16-2025 Telephone encounter Note Patient Update: Pt [...] as dicussed during call. Bela Martinez RN [facility] 03-14-2025 Instructions Citlali Ceja PA-C - 03/14/2025 [...] tips for improved daily living with POTS. [email or web address] [email or web address] Orthostatic Workout There are videos /playlist/podcast to viewed and helped for exercises and wellness for POTS and Orthostatics Instructions:https://www.[email or web address] .com/[email or web address]/[email or web address] fUhDA In your search bar in the [...] support people Also follow us along on [email or web address] account POTSWILSON Also besides the exercise are some nneka mediation videos . Click and watch. Utilize when your adrenaline is active. May even play music to go along. Play the video as often you want to help as an additional tool to reset the adrenaline https://www.youtube.com/watch?v= pPEq3xImCH0 https://www.youtube.com/watch?v= c5dGzwI-0pE&feature=youtu.be https://www.youtube.com/watch?v= F5jO4tHlQ14 Headache Preventive Treatment: Please keep in mind [...] Feverfew: Feverfew is a common garden herb [place] of [place] to [place] and popular in [facility] as a treatment for disorders typically controlled [...] pepperoni, Pickled villanueva Pods of broad chacon (Beninese beans, Amharic pea pods, Azeri (sohail) beans, dubois and navy beans Ripe [...] much light. These can be obtained at [employer] System[employer].Firm58 or [employer]InSync.Firm58 Foods: see list above. 2. Limit use of acute treatments (jawy-efs-uwstuvn medications, triptans, etc.) to no more than [...] and quiet environment. Relax and reduce stress. Ncclvyw5Gllna is a free pravin that can instruct you on some simple relaxtion and breathing techniques. Http://Stockpulse is a free website that provides teaching [...] headache flare prior to the 3 month otoniel is unlikely to change anything, and unfortunately [...] and will be handling your phone calls, Casmult Messages and inquiries, if any. Unless explicitly told otherwise at the time of your office visit, your study results and ensuing treatment plans will be released via [employer] and discussed during your follow-up appointment. MyChart: Please ask the schedulers to give you an activation code. The main way of communication is by Casmult rather than phone lines, so if you have not signed up, please do so. Casmult is also the way that you can review your labs and testing. We are not able to contact everyone to tell them results are normal. If you do not hear back from us regarding testing you have had, it should be considered normal or within normal range. If you have any questions about the results, you are free to message us. [employer] is meant for simple questions regarding medications, possible side effects, or other simple straight forward questions in limited sentences, rather than multiple paragraphs of discussion. [employer] is not meant for, or efficient for [...] do not comment on most testing on [employer] in a message or commentary unless there [...] with this process. documented in this encounter [facility] 03-14-2025 Note HNO ID: [id number] Author: CITLALI CEJA PA-C Service: ? Author Type: Physician Finance Admin Type: Progress Notes Filed: 03/14/2025 09:13 Note Text: Neurology Outpatient Clinic Date: March 14, 2025 Patient Name: Shawanda Brink Referring physician: Issac Fernández [facility] [place] [id number] Consult requested for headache by Dr. Fernández. Recommendations will be communicated via shared medical record or US mail. Primary physician: Issac Fernández [facility] [place] [phone] Reason for Evaluation: Headaches Subjective HPI Shawanda [...] gradual Location: Right sided. Aura: 5-6 times Prodrome:[id number], kaleidsecope lasting 30-45 minuhtes . Accompanying symptoms: [...] Negative for reported (more content not included)... [facility] 03-14-2025 History of Presen t illness Narrative Images from the original note were not included. Neurology Outpatient Clinic Date: March 14, 2025 Patient Name: Shawanda Brink Referring physician: Issac Tran [facility] [address] Consult requested for headache by Dr. Fernández. Recommendations will be communicated via shared medical record or US mail. Primary physician: [place] [address] Reason for Evaluation: Headaches Subjective HPI Shawanda [...] gradual Location: Right sided. Aura: 5-6 times Prodrome:[id number], kaleidsecope lasting 30-45 minuhtes . Accompanying symptoms: [...] PMH - PAST MEDICAL HISTORY OF vascular otoniel left ankle Family History: FAMILY HISTORY Problem Relation Age of Onset Ange Disease Mother other (pulmnary embolism) Father other (mass on liver) Father other (depression and anxiety) Maternal Grandmother Cervical Cancer Maternal Grandmother other ([place]) Maternal Grandfather 49 other (depression and anxiety) Paternal Grandmother Bipolar disorder Paternal Grandmother Anxiety disorder Paternal Grandfather Cancer Other PATERNAL & MATERNAL SIDES Diabetes Other PATERNAL & MATERNAL SIDES other (CLOTTING DISORDER) Other PATERNAL SIDE - FACTOR 5 DISORDER Paternal great aunt Also includes: . Social History:SOCIAL HISTORY[1] Works in [employer]. Objective 03/14/25 0811 03/14/25 0820 03/14/25 0821 [...] 5/5 Finger Abd 5/5 5/5 Finger Add / 5/5 MUSCLES Lower Extremity RIGHT LEFT Hip Flexion / 5/5 Hip Extension / 5/5 BiFem (Knee Flex) 11/19 5/5 Quads (Knee Ext) 11/19 5/5 Gastroc (Plantflx) 11/19 5/5 TibAnt (Dorsiflx) 11/19 5/5 FlxHLong (Toe Flex) 11/19 5/5 ExtHLong (Toe Ext) 11/19 55 Sensory Examination Sensation is intact to light touch. Reflexes Right Left Bicep 2/4 2/4 BrRad 2/4 2/4 Knee 2/4 2/4 Ankle 2/4 2/4 Dent Response Negative Negative Coordination: finger-to- nose-finger intact bilaterally and kbnj-iv-[id number] intact bilaterally. Gait: Patient's gait is normal [...] which included preparing to see the patient, [id number] patient care, completing clinical documentation, obtaining and/or reviewing separately obtained history, performing a medically appropriate examination, counseling and educating the patient/family/caregiver, and ordering medications, tests, or procedures. Citlali Ceja PA-C [facility] Neurology This document has been created with the use of voice recognition technology. It may contain inaccuracies: (e.g. misspellings, inaccurate syntax or word sense) that have escaped review. [1] Social History Tobacco Use Smoking status: Never Smokeless tobacco: Never Vaping Use Vaping status: Never Used Substance Use Topics Alcohol use: Never Drug use: Never documented in this encounter [facility] 03-11-2025 Telephone encounter Note Call placed to patient and notified of below with verbalized understanding. Mark Fan RN [facility] 03-11-2025 Miscellaneous Notes Call placed to patient [...] blood work. Please review and adviseMark RN documented in this encounter [facility] 03-11-2025 Telephone encounter Note Orders for A1c placed. Please let patient know she can come and complete at her convenience. Veronica Muse APRN.SUSANA [facility] 03-08-2025 Telephone encounter Note Patient calls to ask if provider would order a HGBA1C as she was going to ask at appointment earlier today and forgot. She had gestational diabetes and would like to have it checked. She saw endocrinology previously but reports they would need an appointment before ordering blood work. Please review and advise, Mark Fan RN [facility] 03-08-2025 Telephone encounter Note Call placed to pt, provider instructions given, pt voices understanding. Queta Mccarty LPN [facility] 03-08-2025 Miscellaneous Notes Call placed to pt, [...] Bela Martinez RN documented in this encounter [facility] 03-08-2025 Telephone encounter Note Please tell the patient to stop taking the Prozac due the side effect. Schedule her for a sooner appointment with this provider. You can offer her a virtual visit on 03/21 at 11 am as she is a women's health patient. [facility] 03-08-2025 Telephone encounter Note Patient calling to [...] Will await provider's advise. Bela Martinez RN [facility] 03-05-2025 Telephone encounter Note Last: 10/18/24 TREATMENT PLAN: Discontinue Zoloft due to lack of benefit at lower dose and lack of tolerability at higher dose. Start Prozac 20 mg to address mood and anxiety symptoms. Restart individual psychotherapy to discuss the increase in relationship based stress. Follow up in 5 weeks as scheduled. 11/22/24 No show Next: PHYLLIS PITTS msg sent to schedule [facility] 03-05-2025 Miscellaneous Notes Last: 10/18/24 TREATMENT PLAN: Discontinue Zoloft due to lack of benefit at lower dose and lack of tolerability at higher dose. Start Prozac 20 mg to address mood and anxiety symptoms. Restart individual psychotherapy to discuss the increase in relationship based stress. Follow up in 5 weeks as scheduled. 11/22/24 No show Next: NA msg sent to schedule documented in this encounter [facility] 03-05-2025 Note HNO ID: [id number] Author: VERONICA MUSE APRN.[employer]SO[employer] Service: ? Author Type: Nurse Practitioner Type: Progress Notes Filed: 03/05/2025 11:27 Note Text: 03/05/2025 Patient presents with: Physical Recording using [employer] software for draft documentation of the visit was discussed with the patient/authorized insurance verification representative; all questions welcomed and answered. Patient/authorized insurance verification representative agreed to proceed SUBJECTIVE: This is [...] PMH - PAST MEDICAL HISTORY OF vascular otoniel left ankle ALLERGIES Celexa [Citalopram] and Lexapro [...] No history of dysuria, frequency or incontinence CARPENTER AND JOINER: Negative for abnormal vaginal bleeding, abnormal vaginal [...] Abs Lymph 1.00 - 4.00 k/uL 2.47 Powell% % 3.8 Abs Powell <0.87 k/uL 0.23 Eosin% % 1.3 Abs [...] mg/dL 72 (L) (more content not included)... [facility] 03-05-2025 History of Presen t illness Narrative 03/05/2025 Patient presents with: Physical Recording using [employer] software for draft documentation of the visit was discussed with the patient/authorized insurance verification representative; all questions welcomed and answered. Patient/authorized insurance verification representative agreed to proceed SUBJECTIVE: This is [...] PMH - PAST MEDICAL HISTORY OF vascular otoniel left ankle ALLERGIES Celexa [Citalopram] and Lexapro [...] No history of dysuria, frequency or incontinence CARPENTER AND JOINER: Negative for abnormal vaginal bleeding, abnormal vaginal [...] Abs Lymph 1.00 - 4.00 k/uL 2.47 Powell% % 3.8 Abs Powell <0.87 k/uL 0.23 Eosin% % 1.3 Abs [...] amitriptyline. - follow-up as needed Veronica Muse APRN.CHANNELER OUTSOLE Prescription instructions reviewed with patient as applicable. [...] Drug use: Never documented in this encounter [facility] 03-03-2025 Note HNO ID: [id number] Author: ROHAN VILLALBA APRN.SUSANA Service: ? Author [...] agreeable to care plan. and Recording using [employer] software for draft documentation of the visit was discussed with the patient/authorized insurance verification representative; all questions welcomed and answered. Patient/authorized insurance verification representative agreed to proceed MDM Procedures [facility] 03-03-2025 History of Presen t illness [...] agreeable to care plan. and Recording using [employer] software for draft documentation of the visit was discussed with the patient/authorized insurance verification representative; all questions welcomed and answered. Patient/authorized insurance verification representative agreed to proceed MDM Procedures documented in this encounter [facility] 02-22-2025 Telephone encounter Note Patient was unaware when they scheduled her appointment it was [place]. Patient was in [place] [facility] waiting area after being checked in for appointment by [facility]. Assisted rescheduling patient for [place]. Tessy Chow LPN [facility] 02-22-2025 Miscellaneous Notes Patient was unaware when they scheduled her appointment it was [place]. Patient was in [place] [facility] waiting area after being checked in for appointment by [facility]. Assisted rescheduling patient for [place]. Tessy Chow LPN documented in this encounter [facility] 02-18-2025 Telephone encounter Note Haley with [employer] called wanting the billing codes for the lab work Pt was getting done today. I gave her the diagnosis code Z83.49, and the lab names Thyroid Peroxidase Antibody, T4 Free/Free Thyroxine, and T3. Since I didn't know the billing code. Keli Myers RN [facility] 02-18-2025 Miscellaneous Notes Haley with [employer] called wanting the billing codes for the lab work Pt was getting done today. I gave her the diagnosis code Z83.49, and the lab names Thyroid Peroxidase Antibody, T4 Free/Free Thyroxine, and T3. Since I didn't know the billing code. Keli Myers RN documented in this encounter [facility] 02-18-2025 Miscellaneous Notes Please review pt message and advise. Dina Monroe MA documented in this encounter [facility] 02-18-2025 Telephone encounter Note Please review pt message and advise. Dina Monroe MA [facility] 02-14-2025 Note HNO ID: [id number] Author: JAMAL CORTEZ APRN.[employer]SOLE Service: ? Author Type: Nurse Practitioner Type: Progress Notes Filed: 02/14/2025 19:09 Note Text: URGENT CARE SHIRAZSAMM Brink is a 19 year old female. [...] of care. This note was generated using [employer] software. It may contain errors in wording, punctuation, or (more content not included)... [facility] 02-14-2025 History of Presen t illness [...] of care. This note was generated using [employer] software. It may contain errors in wording, punctuation, or spelling. Jamal Cortez APRN.SUSANA History and Record Review Clinical information obtained from an independent historian. History obtained from or confirmed by: parent. External record(s) reviewed: prior outpatient record. Disposition The patient was discharged. Procedures documented in this encounter [facility] 02-14-2025 Telephone encounter Note Patient calling in. [...] today for further evaluation. Bela Martinez RN [facility] 02-14-2025 Miscellaneous Notes Patient calling in. Reports [...] Bela Martinez RN documented in this encounter [facility] 02-10-2025 Note HNO ID: [id number] Author: SIERRA ALTAMIRANO APRN.[facility] Service: ? Author Type: Nurse Practitioner Type: Progress Notes Filed: 02/10/2025 14:31 Note Text: Subjective Shawanda Brink is a 19 year old female. The history is provided by the patient. No english as a second language teacher was used. JUVENAL Brink is a 19 year old female [...] from review of inpatient records: ER record [place] [facility] Thursday 02/08 Systemic symptoms present included: fever [...] detail warranting prompt ER evaluation. Sierra Altamirano APRN.[facility] 02-10-2025 History of Presen t illness Narrative Subjective Shawanda M Manges is a 19 year old female. The history is provided by the patient. No english as a second language teacher was used. HPI Shawanda Brink is a 19 year old female who presents today for CC of headache, sore throat and fever that started Tuesday evening and is worsening. She was seen [...] from review of inpatient records: ER record [place] 02/08 Systemic symptoms present included: fever Differential [...] detail warranting prompt ER evaluation. Sierra Altamirano APRN.SUSANA documented in this encounter [facility] 02-10-2025 Instructions Sierra Altamirano APRN.CNP - 02/10/2025 [...] helpful for pain. documented in this encounter [facility] 02-07-2025 Note HNO ID: [id number] Author: JANETT PINO MA Service: ? Author Type: Desktop Publishing Associate Type: Progress Notes Filed: 02/07/2025 11:42 Note [...] pre and post procedure Rohan Villalba CNP [facility] 02-07-2025 History of Presen t illness [...] history is provided by the patient. No english as a second language teacher was used. Patient presents to from home [...] PMH - PAST MEDICAL HISTORY OF vascular otoniel left ankle PAST SURGICAL HISTORY Procedure Laterality [...] Maternal Grandmother Cervical Cancer Maternal Grandmother other ([place]) Maternal Grandfather 49 other (depression and anxiety) [...] and frontal sinus tenderness present. Mouth/Throat: Lips: [place]. No lesions. Mouth: Mucous membranes are moist. [...] ears Deyanira Hung NP student TEACHING PROVIDER (Physician/PA/CONTAINER WASHER MACHINE) NOTE OF PERSONAL INVOLVEMENT IN CARE: I have personally seen and examined the patient and performed the medical decision-making components. I have reviewed the Advanced Practice Registered Nurse (CONTAINER WASHER MACHINE) Student's documentation and verified the findings in the note as written. Any additions or changes are noted in bold/italics. Signature: Rohan Villalba Date: 02/07/2025 Time: 11:41 AM documented in this encounter [facility] 02-07-2025 Note HNO ID: [id number] Author: ROHAN VILLALBA APRN.[employer]SO[employer] Service: ? Author Type: Nurse Practitioner Type: Progress Notes Filed: 02/07/2025 11:42 Note Text: Subjective Patient ID: Shawanda is a 19 year old female who presents for Ear Problem (Bilateral ear pressure x4 days, head pressure x1 month). The history is provided by the patient. No english as a second language teacher was used. Patient presents to from home [...] PMH - PAST MEDICAL HISTORY OF vascular otoniel left ankle PAST SURGICAL HISTORY Procedure Laterality [...] Maternal Grandmother Cervical Cancer Maternal Grandmother other ([place]) Maternal Grandfather 49 other (depression and anxiety) [...] and frontal sinus tenderness present. Mouth/Throat: Lips: [place]. No lesions. Mouth: Mucous membranes are moist. [...] ears Deyanira Hung (more content not included)... [facility] 02-07-2025 Telephone encounter Note Pt notified of Providers message below via [employer]. Advised pt to keep appt as schedule w/Neuro on 02/13/25. Dina Monroe MA [facility] 02-07-2025 Miscellaneous Notes Pt notified of Providers message below via [employer]. Advised pt to keep appt as schedule [...] discuss concerns further. documented in this encounter [facility] 02-07-2025 Telephone encounter Note Her workup for her symptoms has thus far been completely normal. I would not recommend checking additional hormone levels based on her complaints at her last OV. She was referred to neurology for her headaches and numbness/tingling. I would have her f/u with specialist as scheduled to discuss concerns further. [facility] 01-31-2025 Telephone encounter Note Patient informed via my chart. Nasima Martin MA [facility] 01-31-2025 Miscellaneous Notes Patient informed via my chart. Nasima Martin MA ----- Message from Issac Fernández MD sent at 01/31/2025 9:06 AM EDT ----- Patient's MRI of the brain is normal. documented in this encounter [facility] 01-31-2025 Telephone encounter Note ----- Message from Issac Fernández MD sent at 01/31/2025 9:06 AM EDT ----- Patient's MRI of the brain is normal. [facility] 01-31-2025 History of Presen t illness Narrative [...] PATIENT PRESENTS WITH AN IMPLANTABLE OR ATTACHED MANAGING MANAGER: No RADIOLOGY DEPARTMENT: MR; Exam(s) Completed: Head: Routine Brain. Aromatherapy Administered: No PERIPHERAL IV DATA: Not applicable SIGNED BY: RT Agustina(R) January 31, 2025 8:03 AM documented in this encounter [facility] 01-31-2025 Note HNO ID: [id number] Author: NEIL GRISSOM RT(Nneka) Service: ? Author Type: Technologist Type: Progress [...] PATIENT PRESENTS WITH AN IMPLANTABLE OR ATTACHED MANAGING MANAGER: No RADIOLOGY DEPARTMENT: MR; Exam(s) Completed: Head: Routine Brain. Aromatherapy Administered: No PERIPHERAL IV DATA: Not applicable SIGNED BY: RT Agustina(R) January 31, 2025 8:03 AM [facility] 01-25-2025 Instructions Issac Fernández MD - 01/25/2025 10:40 AM EDT - Start amitriptyline 10 mg by mouth at bedtime to help prevent your migraine headaches; a 30-day supply with refills has been sent to [facility] in [place]. Let us know if your headaches return [...] before you go. documented in this encounter [facility] 01-25-2025 Note HNO ID: [id number] Author: ISSAC FERNÁNDEZ MD Service: ? Author Type: Physician Type: Progress Notes Filed: 01/25/2025 10:46 Note Text: Chief Complaint Patient presents with: Follow Up Recording using [employer] software for draft documentation of the visit was discussed with the patient/authorized insurance verification representative; all questions welcomed and answered. 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 Past medical history, appointments, medications, allergies reviewed. Previous Medical History PAST MEDICAL HISTORY Diagnosis Date Acne vulgaris 08/18/2015 Anxiety Bipolar 2 disorder (HCC) Cough variant asthma (HCC) 09/27/2016 Depression Migraines PMH - PAST MEDICAL HISTORY OF vascular otoniel left ankle Previous Surgical History PAST SURGICAL HISTORY Procedure Laterality Date NONE Family History FAMILY HISTORY Problem Relation Age of Onset Ange Disease Mother other (pulmnary embolism) Father other (mass on liver) Father other (depression and anxiety) Maternal Grandmother Cervical Cancer Maternal Grandmother other ([place]) Maternal Grandfather 49 other (depression and anxiety) [...] speech normal, menta (more content not included)... [facility] 01-25-2025 History of Presen t illness Narrative Chief Complaint Patient presents with: Follow Up Recording using [employer] software for draft documentation of the visit was discussed with the patient/authorized insurance verification representative; all questions welcomed and answered. 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 Past medical history, appointments, medications, allergies reviewed. Previous Medical History PAST MEDICAL HISTORY Diagnosis Date Acne vulgaris 08/18/2015 Anxiety Bipolar 2 disorder (HCC) Cough variant asthma (HCC) 09/27/2016 Depression Migraines PMH - PAST MEDICAL HISTORY OF vascular otoniel left ankle Previous Surgical History PAST SURGICAL HISTORY Procedure Laterality Date NONE Family History FAMILY HISTORY Problem Relation Age of Onset Ange Disease Mother other (pulmnary embolism) Father other (mass on liver) Father other (depression and anxiety) Maternal Grandmother Cervical Cancer Maternal Grandmother other ([place]) Maternal Grandfather 49 other (depression and anxiety) [...] Abs Lymph 1.00 - 4.00 k/uL 2.32 Powell% % 5.4 Abs Powell <0.87 k/uL 0.42 Eosin% % 3.1 Abs [...] mg PO at bedtime; prescription sent to [facility] [place]. - Follow-up in 3 months to re-evaluate [...] on February 09 for further evaluation. Issac Feránndez MD documented in this encounter [facility] 01-21-2025 Telephone encounter Note Appointment scheduled. Patient notified via . Yohana Bird LPN [facility] 01-21-2025 Miscellaneous Notes Appointment scheduled. Patient notified via . Yohana Bird LPN Recommend repeat OV this week for 40 minutes for multiple complaints. See patient update. Is scheduled to have echo on 01/28. Yohana Bird LPN documented in this encounter [facility] 01-21-2025 Telephone encounter Note Recommend repeat OV this week for 40 minutes for multiple complaints. [facility] 01-21-2025 Telephone encounter Note See patient update. Is scheduled to have echo on 01/28. Yohana Bird LPN [facility] 01-11-2025 Telephone encounter Note Per provider Veronica Muse MARKETING STRATEGY LEAD, See if they can reschedule the ECHO for next week. If it going to be weeks or months I guess I'd have her remove it early.. Called and let Pt know. Pt was put through to scheduling. Keli Myers RN [facility] 01-11-2025 Miscellaneous Notes Per provider Veronica Muse MARKETING STRATEGY LEAD, See if they can reschedule the ECHO [...] Keli Myers RN documented in this encounter [facility] 01-11-2025 Telephone encounter Note Pt called in and reports she has an ECHO scheduled today at 330. She has the 14 day Holter monitor on and has only had it on 10 days. She wants to know if she should take that off early, or reschedule her ECHO. Please call and advise. Keli Myers, RN [facility] 12-31-2024 Telephone encounter Note Patient informed. Nasima Martin MA [facility] 12-31-2024 Telephone encounter Note ----- Message from Issac Fernández MD sent at 12/31/2024 7:07 AM EDT ----- Normal labs. [facility] 12-31-2024 Miscellaneous Notes Patient informed. Nasima Martin MA ----- Message from Issac Fernández MD sent at 12/31/2024 7:07 AM EDT ----- Normal labs. documented in this encounter [facility] 12-27-2024 Instructions Issac Fernández MD - 12/27/2024 [...] during sexual intercourse or follow up wtih CARPENTER AND JOINER to discuss control options. If you were to become or are trying to become , please notify our office right away. - Check in at the front services agent and go to the lab today for your blood tests. - assignment desk assistant will schedule your heart ultrasound (echocardiogram) and [...] or feel faint. documented in this encounter [facility] 12-27-2024 Note HNO ID: [id number] Author: ISSAC FERNÁNDEZ MD Service: ? Author Type: Physician Type: Progress Notes Filed: 12/27/2024 13:15 Note Text: Chief Complaint Patient presents with: Migraine Tachycardia Recording using [employer] software for draft documentation of the visit was discussed with the patient/authorized insurance verification representative; all questions welcomed and answered. Patient/authorized insurance verification representative agreed to proceed HPI Shawanda Brink [...] of gestational diabetes. - Previous evaluation by [facility] in September or October 2022; no echo performed, only noted low potassium levels. Past medical history, appointments, medications, allergies reviewed. Previous Medical History PAST MEDICAL HISTORY Diagnosis Date Acne vulgaris 08/18/2015 Anxiety Bipolar 2 disorder (HCC) Cough variant asthma (HCC) 09/27/2016 Depression Migraines PMH - PAST MEDICAL HISTORY OF vascular otoniel left ankle Previous Surgical History PAST SURGICAL HISTORY Procedure Laterality Date NONE Family History FAMILY HISTORY Problem Relation Age of Onset Ange Disease Mother other (pulmnary embolism) Father other (mass on liver) Father other (depression and anxiety) Maternal Grandmother Cervical Cancer Maternal Grandmother other ([place]) Maternal Grandfather 49 other (depression and anxiety) [...] - Standard) [place] (more content not included)... [facility] 12-27-2024 History of Presen t illness Narrative Chief Complaint Patient presents with: Migraine Tachycardia Recording using [employer] software for draft documentation of the visit was discussed with the patient/authorized insurance verification representative; all questions welcomed and answered. Patient/authorized insurance verification representative agreed to proceed HPI Shawanda Brink [...] of gestational diabetes. - Previous evaluation by [facility] in September or October 2022; no echo performed, only noted low potassium levels. Past medical history, appointments, medications, allergies reviewed. Previous Medical History PAST MEDICAL HISTORY Diagnosis Date Acne vulgaris 08/18/2015 Anxiety Bipolar 2 disorder (HCC) Cough variant asthma (HCC) 09/27/2016 Depression Migraines PMH - PAST MEDICAL HISTORY OF vascular otoniel left ankle Previous Surgical History PAST SURGICAL HISTORY Procedure Laterality Date NONE Family History FAMILY HISTORY Problem Relation Age of Onset Ange Disease Mother other (pulmnary embolism) Father other (mass on liver) Father other (depression and anxiety) Maternal Grandmother Cervical Cancer Maternal Grandmother other ([place]) Maternal Grandfather 49 other (depression and anxiety) [...] which included preparing to see the patient, [id number] patient care, completing clinical documentation, obtaining and/or reviewing separately obtained history, performing a medically appropriate examination, counseling and educating the patient/family/caregiver, ordering medications, tests, or procedures, independently interpreting results (not separately reported), and communicating results to the patient/family/caregiver. Issac Fernández MD documented in this encounter [facility] 12-27-2024 Note HNO ID: [id number] Author: MINDY BORREGO MD Service: ? Author [...] VE Couplets or VE Triplets were present. [facility] 12-26-2024 Telephone encounter Note Placed call to patient with no answer. Unable to leave message due to mailbox full. Try again later. Nasima Martin MA [facility] 12-26-2024 Miscellaneous Notes Placed call to patient [...] sweating. Protocols used: Heart Rate and Heartbeat [id number] documented in this encounter [facility] 12-26-2024 Telephone encounter Note Reviewed. If HR >120 at rest or develops chest pain, palpitations, SOB, lightheadedness or passes out they need to be seen in the ER. [facility] Work Phone: 12-26-2024 Telephone encounter Note Patient [...] sweating. Protocols used: Heart Rate and Heartbeat [id number] [facility] 11-30-2024 Instructions Veronica Muse APRN.SUSANA - 11/30/2024 [...] of your migraines. documented in this encounter [facility] 11-30-2024 Note HNO ID: [id number] Author: VERONICA MUSE APRN.SUSANA Service: ? Author Type: Nurse Practitioner Type: Progress Notes Filed: 11/30/2024 10:59 Note Text: 11/30/2024 Patient presents with: Headache: Another that started this AM. Has been having one x8 days Recording using [employer] software for draft documentation of the visit was discussed with the patient/authorized insurance verification representative; all questions welcomed and answered. Patient/authorized insurance verification representative agreed to proceed SUBJECTIVE: This is [...] Acne vulgaris 08/18/2015 Anxiety Bipolar 2 disorder ([facility]) Cough variant asthma ([facility]) 09/27/2016 Depression Migraines PMH - PAST MEDICAL HISTORY OF vascular otoniel left ankle ALLERGIES Celexa [Citalopram] and Lexapro [...] Discussed abortive treatmen (more content not included)... [facility] 05-16-2025 History of Presen t illness Narrative 11/30/2024 Patient presents with: Headache: Another that started this AM. Has been having one x8 days Recording using [employer] software for draft documentation of the visit was discussed with the patient/authorized insurance verification representative; all questions welcomed and answered. Patient/authorized insurance verification representative agreed to proceed SUBJECTIVE: This is [...] PMH - PAST MEDICAL HISTORY OF vascular otoniel left ankle ALLERGIES Celexa [Citalopram] and Lexapro [...] Z39.1 - plan as above Veronica Muse APRN.CHANNEL[employer] OUTSOLE Prescription instructions reviewed with patient as applicable. [...] 4 - Moderate documented in this encounter [facility] 11-22-2024 Note HNO ID: [id number] Author: MAXINE ELLIS APRN.CNP Service: ? Author Type: Nurse Practitioner Type: Progress Notes Filed: 11/22/2024 08:14 Note Text: Patient did not log in for her virtual appointment with the provider. [facility] 11-22-2024 History of Presen t illness Narrative Patient did not log in for her virtual appointment with the provider. documented in this encounter [facility] 11-06-2024 Note HNO ID: [id number] Author: JAMAL CORTEZ APRN.CNP Service: ? Author [...] PMH - PAST MEDICAL HISTORY OF vascular otoniel left ankle PAST SURGICAL HISTORY Procedure Laterality Date NONE ALLERGIES Celexa [Citalopram] and Lexapro [Escitalopram] MEDICATIONS FLUoxetine (PROZAC) 20 mg capsule Take 1 capsule by mouth once daily. FAMILY HISTORY Problem Relation Age of Onset Ange Disease Mother other (pulmnary embolism) Father other (mass on liver) Father other (depression and anxiety) Maternal Grandmother Cervical Cancer Maternal Grandmother other ([place]) Maternal Grandfather 49 other (depression and anxiety) [...] swab results. Patient (more content not included)... [facility] 11-06-2024 History of Presen t illness Narrative [...] PMH - PAST MEDICAL HISTORY OF vascular otoniel left ankle PAST SURGICAL HISTORY Procedure Laterality Date NONE ALLERGIES Celexa [Citalopram] and Lexapro [Escitalopram] MEDICATIONS FLUoxetine (PROZAC) 20 mg capsule Take 1 capsule by mouth once daily. FAMILY HISTORY Problem Relation Age of Onset Ange Disease Mother other (pulmnary embolism) Father other (mass on liver) Father other (depression and anxiety) Maternal Grandmother Cervical Cancer Maternal Grandmother other ([place]) Maternal Grandfather 49 other (depression and anxiety) [...] of care. This note was generated using [employer] software. It may contain errors in wording, punctuation, or spelling. Jamal Cortez APRN.SUSANA documented in this encounter [facility] 11-01-2024 Note HNO ID: [id number] Author: ?, ?, ? Service: ? Author Type: LICENSED NURSE Type: Progress Notes Filed: 11/01/2024 09:05 Note Text: Patient presents for Hepatitis B vaccine. Denies any problems at this time. Tolerated injection well. Meenakshi Spangler LPN [facility] 11-01-2024 History of Presen t illness Narrative Patient presents for Hepatitis B vaccine. Denies any problems at this time. Tolerated injection well. Meenakshi Spangler LPN documented in this encounter [facility] 10-29-2024 Telephone encounter Note Reviewed lab results. No concerns noted at this time. [facility] 10-29-2024 Miscellaneous Notes Reviewed lab results. No concerns noted at this time. Labs scanned to chart for you to review. Queta Mccarty LPN documented in this encounter [facility] 10-29-2024 Telephone encounter Note Labs scanned to chart for you to review. Queta Mccarty LPN [facility] 10-24-2024 Telephone encounter Note Patient returned call and went over results, notes from Dr Fernández with understanding. Scheduled nurse visit for Hep B vaccine injection number 1 for 11/01/[address] [facility] 10-24-2024 Miscellaneous Notes Patient returned call and went over results, notes from Dr Fernández with understanding. Scheduled nurse visit for Hep B vaccine injection number 1 for 11/01/2024 with Nurse. Left message for return call. Meenakshi Spangler LPN Confirmed labs show no immunity. Orders approved for Hepatitis B series. Please schedule for [place]. Received. Placed on providers desk for review. Yohana iBrd LPN Can we get records so I can review before placing orders for vaccines? Patient calls and states that she had Hepatitis B titers done at [facility]. Patient reports that titers showed that she is not immune to Hepatis B. Patient asking if she needs to come in and get vaccines done? Patient will have lab results faxed to office. Please review and advise, Antoinette Burgess RN documented in this encounter [facility] 10-24-2024 Telephone encounter Note Left message for return call. Meenakshi Spangler LPN [facility] 10-24-2024 Telephone encounter Note Confirmed labs show no immunity. Orders approved for Hepatitis B series. Please schedule for NV. [facility] 10-24-2024 Telephone encounter Note Received. Placed on providers desk for review. Yohana Bird LPN [facility] 10-23-2024 Telephone encounter Note Can we get records so I can review before placing orders for vaccines? [facility] 10-23-2024 Telephone encounter Note Patient calls and states that she had Hepatitis B titers done at [facility]. Patient reports that titers showed that she is not immune to Hepatis B. Patient asking if she needs to come in and get vaccines done? Patient will have lab results faxed to office. Please review and advise, Antoinette Burgess RN [facility] 10-19-2024 Instructions Maxine Ellis APRN.CNP - 10/19/2024 6:42 PM EDT TREATMENT PLAN: [...] --call the National Suicide Prevention Lifeline at 980 (770-442-6378) --text the Crisis Text Line (text HOME to 505347) --call 911 and let them know you are having a mental health crisis or go to your nearest Emergency Room for stabilization. --You can also call Mobile Crisis at [phone]. -- You may call the department appointment line at [phone] to schedule your appointment. -- Please call my nurse at [phone] or send me a message in [employer] with any questions or concerns between appointments. documented in this encounter [facility] 10-18-2024 Note HNO ID: [id number] Author: MAXINE ELLIS APRN.SUSANA Service: ? Author [...] visit. 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 Was going to [facility]. Encouraged to reach out to them again to schedule an appointment. She shares that she has completed some blood work at [employer] and will be able to share those [...] PMH - PAST MEDICAL HISTORY OF vascular otoniel left ankle PAST SURGICAL HISTORY Procedure Laterality [...] higher dose. S (more content not included)... [facility] 10-18-2024 History of Presen t illness [...] visit. 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 Was going to [facility]. Encouraged to reach out to them again to schedule an appointment. She shares that she has completed some blood work at [employer] and will be able to share those [...] PMH - PAST MEDICAL HISTORY OF vascular otoniel left ankle PAST SURGICAL HISTORY Procedure Laterality [...] TIME: 8:12 AM documented in this encounter [facility] 09-25-2024 Note HNO ID: [id number] Author: MAXINE ELLIS APRN.CNP Service: ? Author Type: Nurse Practitioner Type: Progress Notes Filed: 09/25/2024 08:54 Note Text: Patient cancelled the appointment right before her appointment with the provider. [facility] 09-12-2024 Note SARS-COV-2 (AGENT OF COVID-19) RNA: Not detected INFLUENZA A RNA: Not detected INFLUENZA B RNA: Not detected RESPIRATORY SYNCYTIAL VIRUS (RSV) RNA: Not detected [facility] Comment on above: Performed By: #### 9 [id number] ####[facility] LABCLIA [id number] [address] OF [facility] 09-12-2024 Note HNO ID: [id number] Author: BHARAT MOSHER MD Service: ? 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 Follow up in 6 weeks or sooner if needed. For those experiencing a suicidal crisis: --call the National Suicide Prevention Lifeline at 988 (396.849.6296) --text the Crisis Text Line (text HOME to 037440) --call 911 and let them know you are having a mental health crisis or go to your nearest Emergency Room for stabilization. --You can also call Mobile Crisis at [phone]. -- You may call the department appointment line at [phone] to schedule your appointment. -- Please call my nurse at [phone] or send me a message in [employer] with any questions or concerns between appointments. documented in this encounter [facility] 08-14-2024 Note HNO ID: [id number] Author: MAXINE ELLIS APRN.SUSANA Service: ? Author [...] visit. Either the patient or their legal insurance verification representative has been informed of the risks [...] she experienced some difficulties logging in through [employer] for the appointment. She is 6 months [...] job in August. 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 Struggled slightly with the idea of having [...] PMH - PAST MEDICAL HISTORY OF vascular otoniel left ankle PAST SURGICAL HISTORY Procedure Laterality [...] (primary encounter diagnosi (more content not included)... [facility] 08-14-2024 History of Presen t illness [...] visit. Either the patient or their legal insurance verification representative has been informed of the risks [...] she experienced some difficulties logging in through [employer] for the appointment. She is 6 months [...] job in August. 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 Complete the [facility] lab work for monitoring. Focus on improving [...] TIME: 8:47 AM documented in this encounter [facility] 07-26-2024 Telephone encounter Note Noted scheduled follow up. Refills sent to the pharmacy. [facility] 07-26-2024 Miscellaneous Notes Noted scheduled follow up. Refills sent to the pharmacy. Call placed to scheduled VV for patient so refills can be sent to [facility] for Zoloft. VV on 08/14/2024 @ 8:30 Zoloft 50 mg 1 tab PO every day Queta Mccarty LPN documented in this encounter [facility] 07-26-2024 Telephone encounter Note Call placed to scheduled VV for patient so refills can be sent to [facility] for Zoloft. VV on 08/14/2024 @ 8:30 Zoloft 50 mg 1 tab PO every day Queta Mccarty LPN [facility] 06-28-2024 Instructions Maxine Ellis APRN.CNP - 06/28/2024 11:41 AM EST Dear Shawanda, It has come to my attention you missed your appointment on June 28, 2024 without calling to cancel. Our first concern is your health. If your behavioral health concern prompting your appointment is still present, please reschedule soon so that you may receive the appropriate care by calling [phone]. It is important that you notify our [...] Department of Psychiatry and Psychology at the [facility]. A rolling year begins with the date [...] I apologize in advance. Please call the [facility] Office at [phone] if you have questions about this protocol or question the data on file. If there has been an error, your file will be corrected accordingly. Sincerely, Maxine Ellis APRN.SUASNA documented in this encounter [facility] 06-28-2024 Note HNO ID: [id number] Author: MAXINE ELLIS APRN.CNP Service: ? Author Type: Nurse Practitioner Type: Progress Notes Filed: 06/28/2024 11:41 Note Text: Patient did not log in for her virtual appointment with the provider today. She did not pick remover her phone when she was contacted prior to the appointment time. [facility] 06-28-2024 History of Presen t illness Narrative Patient did not log in for her virtual appointment with the provider today. She did not pick remover her phone when she was contacted prior to the appointment time. documented in this encounter [facility] 06-05-2024 Telephone encounter Note Pt states her breast is tender, swollen & painful, she is beginning to develop a rash. She has not checked her temp. Pt is concerned that she has mastitis. Pt is breast feeding. She has tried to contact her GUIDE SETTER but they have not returned her call. No openings avail in primary care the rest of today. Pt asked if she could be seen in EC. Pt is going to be seen in EC today. Tessy Prabhakar LPN [facility] 06-05-2024 Miscellaneous Notes Pt states her breast is tender, swollen & painful, she is beginning to develop a rash. She has not checked her temp. Pt is concerned that she has mastitis. Pt is breast feeding. She has tried to contact her GUIDE SETTER but they have not returned her call. No openings avail in primary care the rest of today. Pt asked if she could be seen in EC. Pt is going to be seen in EC today. Tessy Prabhakar LPN documented in this encounter [facility] 05-23-2024 Instructions Maxine Ellis APRN.[employer] - 05/23/2024 11:13 PM EST TREATMENT PLAN: Start Zoloft 50 mg to address her anxiety symptoms. Patient reports tolerating this medication and reporting benefit in the past. Engage in individual psychotherapy to learn coping skills to manage anxiety symptoms. Follow up in 4 to 6 weeks. For those experiencing a suicidal crisis: --call the National Suicide Prevention Lifeline at 988 (128-945-2092) --text the Crisis Text Line (text HOME to 039747) --call 911 and let them know you are having a mental health crisis or go to your nearest Emergency Room for stabilization. --You can also call Mobile Crisis at [phone]. -- You may call the department appointment line at [phone] to schedule your appointment. -- Please call my nurse at [phone] or send me a message in [employer] with any questions or concerns between appointments. documented in this encounter [facility] 05-17-2024 Note HNO ID: [id number] Author: MAXINE ELLIS APRN.SUSANA Service: ? Author [...] visit. Either the patient or their legal insurance verification representative has been informed of the risks [...] something to my kids. Did complete the [facility] while she was in July. Was [...] 2 months. 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 [facility] 05-17-2024 History of Presen t illness Narrative Images from the original note were not included. [facility]YC NEW - PSYCHIATRIC ASSESSMENT PATIENT: Shawanda Brink DATE: May 17, 2024 Patient was seen for an initial evaluation. I have communicated my name and active licensure. The patient's identity and physical location were verified at the time of this visit. Either the patient or their legal insurance verification representative has been informed of the risks [...] something to my kids. Did complete the [facility] while she was in July. Was [...] 2 months. 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 She completed High school. She described her childhood as loving and supportive. My early teenage years were rough when my parents were going through a divorce. Patient states that her parents and stepparents are very supportive and helpful to her. The patient lives [facility] and her two children. Service: None Legal: Pt. denied any past legal history Spirituality/Confucianism: Oriental Orthodox FAMILY PSYCHIATRIC HISTORY: Mother-Major Depressive Disorder Dad- [...] PMH - PAST MEDICAL HISTORY OF vascular otoniel left ankle PAST SURGICAL HISTORY Procedure Laterality [...] which included preparing to see the patient, [id number] patient care, completing clinical documentation, obtaining and/or [...] TIME: 10:06 AM documented in this encounter [facility] 05-14-2024 History of Presen t illness [...] PATIENT PRESENTS WITH AN IMPLANTABLE OR ATTACHED MANAGING MANAGER: No RADIOLOGY DEPARTMENT: General X-ray: Exam(s) Completed: Chest X-Ray PERIPHERAL IV DATA: Not applicable SIGNED BY: RT Miguel(Nneka) May 14, 2024 11:37 AM documented in this encounter [facility] 05-14-2024 Note HNO ID: [id number] Author: SANTY NEGRON RT(R) Service: Radiology Author [...] PATIENT PRESENTS WITH AN IMPLANTABLE OR ATTACHED MANAGING MANAGER: No RADIOLOGY DEPARTMENT: General X-ray: Exam(s) Completed: Chest X-Ray PERIPHERAL IV DATA: Not applicable SIGNED BY: RT Miguel(R) May 14, 2024 11:37 AM [facility] 05-14-2024 Note HNO ID: [id number] Author: SANTOS SOLER APRN.[employer]ER [employer]SOLE Service: ? Author Type: Nurse Practitioner Type: [...] PMH - PAST MEDICAL HISTORY OF vascular otoniel left ankle PAST SURGICAL HISTORY Procedure Laterality [...] Maternal Grandmother Cervical Cancer Maternal Grandmother other ([place]) Maternal Grandfather 49 other (depression and anxiety) [...] abnormality. Dictated by : MD Santos BURGOS APRN.[facility] 05-14-2024 History of Presen t [...] PMH - PAST MEDICAL HISTORY OF vascular otoniel left ankle PAST SURGICAL HISTORY Procedure Laterality [...] Maternal Grandmother Cervical Cancer Maternal Grandmother other ([place]) Maternal Grandfather 49 other (depression and anxiety) [...] abnormality. Dictated by : MD Santos BURGOS APRN.CHANNELER [employer]SOLE documented in this encounter [facility] 04-13-2024 Note HNO ID: [id number] Author: TOSHIA HESS LPCC Service: ? Author Type: Counselor Type: Progress Notes Filed: 04/13/2024 09:38 Note Text: GENERAL PSYCHOLOGY Patient was seen for an initial evaluation. All information is from Patient report except when noted. This evaluation is NOT intended for forensic, disability or child custody purposes. Visit Type:The patient e-signed the Informed Consent for Psychological Evaluation AND Care Form, and the [facility] insurance benefits, fees for service, emergency procedures, and the limits of confidentiality that may pertain with any given case were discussed with the patient. The patient was given a copy of the consent form on [employer]. The patient consented to a virtual visit and their location was confirmed. Informed consent was discussed and signed by the patient. PRESENT: Self AGE: [age] year old RACE: White MARITAL STATUS: Single (never ) CHILDREN: Yes, daughter age 16 months and son age 2 months. 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 MEDICAL HISTORY Diagnosis Date Acne vulgaris 08/18/2015 Anxiety Bipolar 2 disorder (HCC) Cough variant asthma 09/27/2016 Depression PMH - PAST MEDICAL HISTORY OF vascular otoniel left ankle PAST SURGICAL HISTORY Procedure Laterality [...] fiance's family Compulsions: none Self mutilation: Denies PSYCHIATRIC HISTORY: Prior Diagnosis: Anxiety Disorder, Major Depressive Disorder, PPD, Bipolar 2 Prior Psychiatrist: During IOP in July 2023 Therapist: Yes, but cannot recall Current Logging Rafter Laborer: None Last Hospitalization: None SUICIDE RISK ASSESSMENT: [...] The patient was born and raised in [place], [place] . She completed High school. She described her childhood as loving and supportive. My early teenage years were rough when my parents were going through a divorce. Patient states that her parents and stepparents are very supportive and helpful to her. The patient lives [facility] and her two children. Service: None Legal: Pt. denied any past legal history Spirituality/Confucianism: Oriental Orthodox PATIENT DATA: Generalized Anxiety Disorder (more content not included)... [facility] 04-13-2024 History of Presen t illness [...] a copy of the consent form on Casmult. The patient consented to a virtual visit and their location was confirmed. Informed consent was discussed and signed by the patient. PRESENT: Self AGE: [age] year old RACE: White MARITAL STATUS: Single (never ) CHILDREN: Yes, daughter age 16 months and son age 2 months. 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 MEDICAL HISTORY Diagnosis Date Acne vulgaris 08/18/2015 Anxiety Bipolar 2 disorder (HCC) Cough variant asthma 09/27/2016 Depression PMH - PAST MEDICAL HISTORY OF vascular otoniel left ankle PAST SURGICAL HISTORY Procedure Laterality [...] Rash REFERRAL SOURCE: [facility] Physician - Veronica Podlogceline CHIEF COMPLAINT: I need to figure out [...] fiance's family Compulsions: none Self mutilation: Denies PSYCHIATRIC HISTORY: Prior Diagnosis: Anxiety Disorder, Major Depressive Disorder, PPD, Bipolar 2 Prior Psychiatrist: During IOP in July 2023 Therapist: Yes, but cannot recall Current Logging Rafter Laborer: None Last Hospitalization: None SUICIDE RISK ASSESSMENT: [...] The patient was born and raised in [place], [place] . She completed High school. She described her childhood as loving and supportive. My early teenage years were rough when my parents were going through a divorce. Patient states that her parents and stepparents are very supportive and helpful to her. The patient lives [facility] and her two children. Service: None Legal: Pt. denied any past legal history Spirituality/Confucianism: Oriental Orthodox PATIENT DATA: Generalized Anxiety Disorder Scale (MARK-7) [...] old SWF. 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 Contact information for [facility] was provided. Patient was advised to call and schedule with a psychiatry provider. 2. Should a mental health emergency arise, patient was instructed to contact 911 or go to the local ER. Contact information for [facility] was provided and patient was encouraged to [...] visit. Either the patient or their legal insurance verification representative has been informed of the risks and benefits of -- and alternatives to -- treatment through a remote evaluation and consents to proceed with the evaluation remotely. Visit performed via Virtual Visit Informed consent to deliver services discussed / virtual visit completed in ShowUhowhart/zoom and lasted 22 minutes Patient aware of benefits of virtual visit services and is in agreement to participate Originating site for client [place] Originating site for provider [place] Site appropriate for privacy No equipment failures, provided psychotherapy documented in this encounter [facility] 03-21-2024 Telephone encounter Note Behavioral Health Social Work Progress Note Patient identified for [facility] from: PCP Reason for referral: [facility] Assessment [facility] encounter type: Telephone Encounter Attempts to Outreach: 1 attempt Patient Discharged?: No Patient reported that caregiver was able to meet their needs today?: N/A Phone call placed today that went to voicemail. Left my contact information and brief nature of call. Initial outreach also completed via TEJINDER Shaver March 21, [address] [facility] Work Phone: 03-21-2024 Miscellaneous Notes Behavioral Health Social Work Progress Note Patient identified for [facility] from: PCP Reason for referral: [facility] Assessment [facility] encounter type: Telephone Encounter Attempts to Outreach: 1 attempt Patient Discharged?: No Patient reported that caregiver was able to meet their needs today?: N/A Phone call placed today that went to voicemail. Left my contact information and brief nature of call. Initial outreach also completed via TEJINDER Shaver March 21, 2024 documented in this encounter [facility] 03-21-2024 Instructions Veronica Muse APRN.CHANNELER OUTSOLE - 03/21/2024 10:00 AM EDT - [facility] crisis line - [facility] house phone number or documented in this encounter [facility] 03-21-2024 History of Presen t illness Narrative [...] - PAST MEDICAL HISTORY OF Comment: vascular otoniel left ankle ALLERGIES Patient has no known [...] diarrhea : No history of dysuria,or incontinence CARPENTER AND JOINER: Negative for abnormal vaginal bleeding, abnormal vaginal [...] Plan due on 08/27/2023 Covid-19 Vaccine( - 2022- season) Never done Influenza Vaccine(1) due on [...] as in #2 - THYROID STIMULATING HORMONE Veronica Muse, CONTAINER WASHER MACHINE.CHANNELER OUTSOLE Prescription instructions reviewed with patient as applicable. [...] 4 - Moderate documented in this encounter [facility] 01-27-2024 History of Presen t illness Narrative This note was created using Personalis. Subjective Shawanda Brink is a 18 year [...] - STREP A MOLECULAR (POC) Marychuy Calvin APRN.CHANNELER OUTSOLE documented in this encounter [facility] 01-21-2024 History of Presen t illness Narrative [...] Bharat Mosher MD documented in this encounter [facility] 05-25-2023 History of Presen t illness Narrative This note was created using [facility]. Subjective Shawanda Brink is a 17 year [...] PMH - PAST MEDICAL HISTORY OF vascular otoniel left ankle Current Outpatient Medications Medication Sig [...] FACTOR 5 DISORDER Paternal great aunt other ([place]) Maternal Grandfather 49 Social History Tobacco Use [...] Becca Stearns PA-C documented in this encounter [facility] 12-15-2022 Procedure note [facility] 12-14-2022 Progress note Note Date/Time December 14, 2022 9:27p m [facility] Medical Records Department [address] [place] [address] Progress Note 12/14/222121 MR#: [id number] Acct: [id number] Name: SHAWANDA BRINK Rep #:[id number] : 2005 17 From: Lu Mcclain CNM PCP: Care Physician,No Primary Status :ADM IN Location: [place] [id number] Progress Note comfortable with contractions current tracing: FHT: 125 Moderate variability reactive no decelerations category I tracing Winder: Contractions every 2-3 minutes. reviewed tracing abnormalities [...] Cosigner Signature (if applicable): CC: ~ Signed [facility] Work Phone: 1(179) 826-259605-30-[address] Ochoa [facility] December 14, 2022 3:23pm Note Date/Time December 14, 2022 3:22p m [facility] Medical Records Department [address] [place] [address] Progress Note 12/14/22 1522 MR#: [id number] Acct: [id number] Name: SHAWANDA BRINK Rep #:[id number] 9 : 2005 17 From: Deborah pierre MD PCP: Care Physician,No Primary Status :ADM IN Location: [place] [address] Progress Note arom clear fluid reassuring FHT cat I internals placed pit per protocol 12/14/22 152 <Electronically signed by Deborah Ochoa MD> Deborah Ochoa MD Cosigner Signature (if applicable): CC: ~ Signed [facility] Work Phone: [phone] Progress note Author Lu Mcclain [facility] December 14, 2022 11:37am Note Date/Time December 14, 2022 11:37 am [facility] Medical Records Department [address] [place] [address] Progress Note 12/14/22 1134 MR#: [id number] Acct: [id number] Name: SHAWANDA BRINK Rep #:[id number] 4 : 2005 17 From: Lu Mcclain CNM PCP: Care Physician,No Primary Status :ADM IN Location: [id number] Progress Note coping well with contractions current tracing: FHT: Moderate variability reactive no decelerations category I tracing Winder: 2-4 minute moderate Contractions SVE 3/60/-1 A/P: [...] Cosigner Signature (if applicable): CC: ~ Signed [facility] Work Phone: 1(232) 867-923305-30-2023 History and physical note Author Lu Mcclain [facility] December 14, 2022 8:20am Note Date/Time December 14, 2022 8:18a m [facility] Medical Records Department [address] [place] [address] H&P Exam - GUIDE SETTER 12/14/22 0813 MR#: [id number] Acct: [id number] Name: SHAWANDA BRINK Rep #:[id number] : 2005 17 From: Lu Mcclain CNM PCP: Care Physician,No Primary Status :ADM IN Location: [id number] HPI - General General Date of Admission: [...] US >20 weeks Gestational age: 38.3 weeks [facility] Medical History Anxiety Asthma Depression GBS (group [...] house current occupational status: employed current occupation: [employer] current occupational exposures/hazards: No pets and animals: [...] 3-4 times per week duration: 30-45 minutes/day jenni/protestant: Oriental Orthodox seatbelt use: always do you feel safe [...] Flu vaccine: plans to vaccinate. works at [employer] Tdap vaccine: [] Rhogam: na LARC [...] 124/80 Nega tive -?-?-?-?-?-?-?-?-?-?-?-?- Negative 156 -?-?-?-?-?-?-?-?-?-?-?-?- MH-No Vb, LOF. G ood FM. Nl anatomy scan. 09/22/22 -?-?-?-?-?-?-?-?-?-?-?-?- 26w 5d 212 lb 8 oz 118/72 Nega tive -?-?-?-?-?-?-?-?-?-?-?-?- Negative 161 -?-?-?-?-?-?-?-?-?-?-?-?- MH-No Vb, LOF. G ood FM. Plans 28 wk labs tomorrow. Random episode of palpitations:order EKG and ref heart group. More anxiety, restarted zoloft. Gave counseling info. 10/04/22 -?-?-?-?-?-?-?-?-?-?-?-?- 28w 3d [...] -?-?-?-?-?-?-?-?-?-?-?-?- Negative 145 -?-?-?-?-?-?-?-?-?-?-?-?- KW-NST only. thor valleive. has appt with Dr Soler today. reports [...] IOL at 38 weeks for EFW of 5324-9302 grams. IOL scheduled KW- +Fm. no lof/vb/regular c tx. Last growth US-3329 at 36.0 weeks. est weight at 39 weeks -4,009 to 4250 grams. Discussed with SM. Plan for IOL at 38 weeks for EFW of 3966-6800 grams and uncontrolled GDM. IOL scheduled. 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 to see [...] TIFFANIE Mcclain; No Primary Care Physician~ Signed [facility] Work Phone: 1(522) 582-392105-30-2023 Progress note Author Lu Mcclain [facility] December 14, 2022 8:12am Note Date/Time December 14, 2022 8:12a m [facility] Medical Records Department [address] [place] [address] Progress Note 12/14/22 0804 MR#: [id number] Acct: [id number] Name: SHAWANDA BRINK Rep #:[id number] : 2005 17 From: Lu Mcclain CNM PCP: Care Physician,No Primary Status :ADM IN [facility] Note coping well with irregular contractions current tracing: FHT: 120 Moderate variability reactive no decelerations category I tracing Winder: irregular Contractions last cytotec dose 0545 SVE 1.5/50/-2 at 0545 A/P: continue position changes plan for johns bulb and pitocin after cervical ripening PCN for GBS treatment when pitocin is started continue to monitor blood sugars-insulin if needed collaborative care with Dr. Marcanthony for high risk Physical Exam Const alert [...] Cosigner Signature (if applicable): CC: ~ Signed [facility] Work Phone: 1(366) 252-868605-30-2023 History and physical note Author Kate Guy [facility] December 14, 2022 12:36am Note Date/Time December 14, 2022 12:23 am [facility] Medical Records Department [address] [place] [address] H&P Exam - GUIDE SETTER 12/13/22 2315 MR#: [id number] Acct: [id number] Name: SHAWANDA BRINK Rep #:[id number] 4 : 2005 17 From: Kate Guy CNM PCP: Care Physician,No Primary Status :ADM IN Location: [id number] HPI - General General Date of Admission: [...] house current occupational status: employed 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 works at [employer] Tdap vaccine: [] Rhogam: na LARC [...] No bleeding since. Ordered anatomy US with [employer]. Light duty until then. 08/17/22 -?-?-?-?-?-?-?-?-?-?-?-?- 21w 4d 196 lb 6 oz 124/80 Nega tive -?-?-?-?-?-?-?-?-?-?-?-?- Negative 156 -?-?-?-?-?-?-?-?-?-?-?-?- MH-No Vb, LOF. G ood FM. Nl anatomy scan. 09/22/22 -?-?-?-?-?-?-?-?-?-?-?-?- 26w 5d 212 lb 8 oz 118/72 Nega tive -?-?-?-?-?-?-?-?-?-?-?-?- Negative 161 -?-?-?-?-?-?-?-?-?-?-?-?- MH-No Vb, LOF. G ood FM. Plans 28 wk labs tomorrow. Random episode of palpitations:order EKG and ref heart group. More anxiety, restarted zoloft. Gave counseling info. 10/04/22 -?-?-?-?-?-?-?-?-?-?-?-?- 28w 3d [...] IOL at 38 weeks for EFW of 2161-0524 grams. IOL scheduled KW- +Fm. no lof/vb/regular c tx. Last growth US-3329 at 36.0 weeks. est weight at 39 weeks -4,009 to 4250 grams. Discussed with SM. Plan for IOL at 38 weeks for EFW of 4479-6044 grams and uncontrolled GDM. IOL scheduled. 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 to see [...] TIFFANIE Guy; No Primary Care Physician~ Signed [facility] Work Phone: 1([phone]) 791-795605-03-2022 Miscellaneous Notes* Telephone Encounter - Rohan Villalba APRN.CHANNELER OUTSOLE - 11/17/2021 8:08 AM EDT Attempted to [...] with this care plan. [facility] History of Present illness Narrative* Becca Stearns PA-C - 11/05/2021 12:58 PM EDT This note was created using [facility]. Subjective Shawanda Brink is a 16 year [...] PMH - PAST MEDICAL HISTORY OF vascular otoniel left ankle Current Outpatient Medications Medication Sig [...] FACTOR 5 DISORDER Paternal great aunt other ([place]) Maternal Grandfather 49 Social History Tobacco Use [...] complaints. Becca Stearns PA-C [facility] Instructions* Patient Instructions* Becca Stearns PA-C - 11/05/2021 12:26 PM EDT Keep hand elevated, the swelling should resolve in the next few days. If getting significantly worse, or you develop other symptoms be seen again. [facility]* Diagnosis Swelling of left hand- Primary [facility] this encounter [facility] noteNo assessment information availableWProMedica [facility] Work Phone: Evaluation note* Diagnosis Onset Date Resolution Status Asthma acute Depression acute acute Supervision of high risk , antepartum acute [facility] Work Phone: Evaluation note* Diagnosis Onset Date Resolution Status Asthma acute Depression acute acute Supervision of high risk , antepartum acute Asthma acute Depression acute acute Supervision of high risk , antepartum acute [facility] Work Phone: evaluation note* Diagnosis Onset Date Resolution Status Asthma acute Depression acute acute Supervision of high risk , antepartum acute Asthma acute Depression acute acute Supervision of high risk , antepartum acute Bleeding in early acute acute Supervision of high risk , antepartum acute Depression acute acute Supervision of high risk , antepartum acute [facility] Work Phone: evaluation note* Diagnosis Onset Date Resolution Status Asthma acute Depression acute acute Supervision of high risk , antepartum acute acute Supervision of high risk , antepartum acute Bleeding in early resolved Depression acute acute Supervision of high risk , antepartum acute Asthma acute Depression acute Palpitations acute acute Supervision of high risk , antepartum acute [facility] Work Phone: evaluation note* Diagnosis Onset Date [...] Supervision of high risk , antepartum acute [facility] Work Phone: evaluation note* Diagnosis Onset Date [...] Supervision of high risk , antepartum acute [facility] Work Phone: evaluation note* Diagnosis Onset Date [...] Supervision of high risk , antepartum acute [place] [facility] Work Phone: Evaluation note* Diagnosis Onset Date [...] of high risk , antepartum resolved [place] [facility] Work Phone: Evaluation note* Diagnosis Onset Date [...] childbirth, noneactive Vaginal discharge noneactive Dysuria noneactive [facility] Work Phone: Evaluation note* Diagnosis Bacterial sinusitis- Primary Unspecified sinusitis (chronic) documented in this encounter [facility] note* Diagnosis Onset Date Resolution Status Depression acute Anxiety acute Asthma acute Depression acute Former smoker acute Hx of gestational diabetes i n prior , currently acute acute Short interval between pregn ancies affecting , antepartum acute Supervision of high-risk acute [facility] Work Phone: Evaluation note* Diagnosis Acute conjunctivitis of both eyes, unspecified acute conjunctivitis type- Primary Hordeolum externum right upper eyelid [facility] Diagnosis Sore throat- Primary Acute pharyngitis documented in this encounter [facility] note* Diagnosis Encounter for medical examination to establish care- Primary Bipolar II disorder (HCC) Other bipolar disorders Urinary frequency Anxiety and depression Dysthymic disorder documented in this encounter [facility] note* Diagnosis Major depressive disorder, recurrent episode, moderate (HCC)- Primary Major depressive disorder, recurrent episode, moderate Generalized anxiety disorder [facility]* Diagnosis Major depressive disorder, recurrent episode, mild (HCC)- Primary Major depressive disorder, recurrent episode, mild [facility]* Diagnosis Sinobronchitis- Primary Unspecified sinusitis (chronic) Acute cough [facility] Diagnosis MARK (generalized anxiety disorder)- Primary Generalized anxiety disorder anxiety Mental disorders of mother, Social anxiety disorder Social phobia Moderate episode of recurrent major depressive disorder (HCC) [facility] this [facility] Diagnosis NO SHOW- Primary [facility]* Diagnosis anxiety- Primary Mental disorders of mother, Moderate episode of recurrent major depressive disorder (HCC) MARK (generalized anxiety disorder) Generalized anxiety disorder Social anxiety disorder Social phobia Encounter for long-term (current) use of medications Encounter for long-term (current) use of other medications [facility] this encounter [facility]* Diagnosis URI, acute- Primary Acute upper respiratory infections of unspecified site [facility] this [facility] Diagnosis MARK (generalized anxiety disorder)- Primary Generalized anxiety disorder Moderate episode of recurrent major depressive disorder (HCC) Social anxiety disorder Social phobia Encounter for long-term (current) use of medications Encounter for long-term (current) use of other medications Psychosocial stressors Other psychological or physical stress, not elsewhere classified [facility] this encounter [facility]* Diagnosis Need for vaccination- Primary Need for prophylactic vaccination and inoculation against unspecified single disease [facility] Diagnosis Encounter for immunization- Primary Need for other specified prophylactic vaccination against single bacterial disease [facility] Diagnosis Urinary frequency- Primary Low back pain with sciatica, sciatica laterality unspecified, unspecified back pain laterality, unspecified chronicity [facility] Diagnosis NO SHOW- Primary Need for vaccination Need for prophylactic vaccination and inoculation against unspecified single disease [facility]* Diagnosis Migraine with aura, intractable, without status migrainosus Mother currently breast-feeding (HCC) documented [facility] this encounter [facility]* Diagnosis Migraine with aura, intractable, without status migrainosus- Primary Palpitations Tachycardia Tachycardia, unspecified Encounter for test, result unknown [facility] Diagnosis Migraine without status migrainosus, not intractable, unspecified migraine type- Primary Unsteadiness on feet Abnormality of gait Numbness and tingling Disturbance of skin sensation Demyelinating disease of central nervous system (HCC) Demyelinating disease of central nervous system, unspecified Blurred vision Other specified visual disturbances Dizziness and giddiness [facility] Diagnosis Migraine without status migrainosus, not intractable, unspecified migraine type Unsteadiness on feet Abnormality of gait Numbness and tingling Disturbance of skin sensation Demyelinating disease of central nervous system (HCC) Demyelinating disease of central nervous system, unspecified [facility] Diagnosis Impacted cerumen of right ear- Primary Impacted cerumen Rhinosinusitis Unspecified sinusitis (chronic) [facility]* Diagnosis Strep pharyngitis- Primary Streptococcal sore throat Sore throat Acute pharyngitis [facility] Diagnosis Pharyngitis, unspecified etiology- Primary Viral illness Unspecified viral infection, in conditions classified elsewhere and of unspecified site [facility] Diagnosis Family history of thyroid disease- Primary Family history of other endocrine and metabolic diseases [facility] Diagnosis Sore throat- Primary Acute pharyngitis [facility] Diagnosis Annual physical exam- Primary Routine general medical examination at a health care facility Screening-pulmonary TB Screening examination for pulmonary tuberculosis Gastroesophageal reflux disease, unspecified whether esophagitis present Migraine without aura, not intractable, without status migrainosus Anxiety disorder, unspecified type [facility] Diagnosis Hx of gestational diabetes mellitus, not currently - Primary Personal history of gestational diabetes [facility] Diagnosis Intractable migraine with aura without status migrainosus- Primary Migraine with aura, with intractable migraine, so stated, without mention of status migrainosus Positional lightheadedness Dizziness and giddiness documented in [facility] Diagnosis Asymptomatic varicose veins of right lower extremity- Primary Asymptomatic varicose veins Hypotension, unspecified hypotension type documented in this encounter [facility] Diagnosis Mixed obsessional thoughts and acts- Primary Moderate episode of recurrent major depressive disorder (HCC) Encounter for long-term (current) use of medications Encounter for long-term (current) use of other medications anxiety (HCC) Mental disorders of mother, documented in this encounter [facility] Diagnosis Dizziness- Primary Dizziness and giddiness SOB (shortness of breath) Shortness of breath Nasal congestion Other diseases of nasal cavity and sinuses Right leg pain Pain in limb [facility] this encounter [facility] Diagnosis NO SHOW- Primary documented in this encounter [facility] Author Dr. Ochoa [facility] December 17, 2022 1:14pm Note Date/Time December 17, 2022 1:14p m [facility] Medical Records Department [address] [place] [address] Progress Note - OBGYN 12/17/22 1311 MR#: [id number] Acct: [id number] Name: SHAWANDA BRINK Rep #:[id number] 8 : 2005 17 From: Deborah pierre MD PCP: Care Physician,No Primary Status :ADM IN [facility] Subjective Subjective Patient doing well without complaints. Tolerating PO. Ambulating and voiding without difficulty. infant feeding well. Denies chest pain, shortness of [...] Cosigner Signature (if applicable): CC: ~ Signed [facility] Work Phone: Reason for visit Narrative* MRI/CT (Urgent) - Closed Specialty Diagnoses / Procedures Referred By Margarita t Referred To Contact MR IMAGING Diagnoses Migraine without status migrainosus, not intractable, unspecified migraine type Unsteadiness on feet Numbness and tingling Demyelinating disease of central nervous system (HCC) Procedures MRI BRAIN WO IVCON MRI BRAIN BRAIN STEM W/O CONTRAST MATERIAL Issac Fernández MD [address] [place] [address] Phone: tel: fax: [place] [id number] Referral ID Status Reason Start Date Expiration Date V isits Requested Visits Authorized [id number] Closed Auto-Generate d Referral 01/25/2025 07/17/[address] [facility] Chief Complaint and Reason for Visit Chief Complaint PREG Chief Complaint PREG NOB LMP 03/03/22 Reason for Visit Asthma Depression Supervision of high risk , antepartum Chief Complaint PREG NOB LMP 03/03/22 12 WK OB VAGINAL BLEEDING Reason for [...] Will No July 13 9:46pm Power of Cabin Furnishings Installer No July 13, 2022 9:46pm Advance Directive Response Recorded Date/ Time Living Will No July 13 10:46pm Power of Cabin Furnishings Installer No July 13, 2022 10:46pm Advance Directive Response Recorded Date/ Time Living Will No December 13, 2022 7 :51pm Power of Cabin Furnishings Installer No December 13, 2022 7:51pm Advance Directive Response Recorded Date/ Time Living Will No December 30, 2022 1:07pm Power of Cabin Furnishings Installer No December 30 1:07pm Advance Directive Response Recorded Date/ Time Living Will No December 30, 2022 12:07pm Power of Cabin Furnishings Installer No December 30 12:07pm Summary Purpose Reason for Referral Specialty Diagnoses / Procedures Referred By Contac t Referred To Contact Diagnoses Bipolar II disorder (HCC) Procedures CONSULT TO PRIMARY CARE BEHAVIORAL HEALTH ADULT MarilogVeronica berger APRN.[employer] [address] [place] [address] Referral ID Status Reason Start Date Expiration Date Visits Requested Visits Authorized [id number] Ref Not Required PCP Requested Referral 03/21/2024 2024 1 1 Specialty Diagnoses / Procedures Referred By Contac t Referred To Contact Diagnoses Major depressive disorder, recurrent episode, mild (HCC) Procedures CONSULT TO WOMEN'S BEHAVIORAL HEALTH OFFICE/OUTPATIENT [facility] 60 MINUTES Toshia Hess, [facility] [address] [place] [address] Referral ID Status Reason Start Date Expiration Date Visits Requested Visits Authorized [id number] Authorized PCP Requested Referral 04/13/2024 04/13/2025 1 1 Additional Source Comments Source Comments (unrecognize d section and content) In the event this informatio n is protected by the Federal Confidentiality of Alcohol and Drug Abuse Patient Records regulations: The Federal rules restrict any use of the information to criminally investigate or prosecute any alcohol or drug abuse patient.[facility] HospitalIn the event this information is protected by the Federal Confidentiality of Alcohol and Drug Abuse Patient Records regulations: The Federal rules restrict any use of the information to criminally investigate or prosecute any alcohol or drug abuse patient.[facility] HospitalIn the event this information is protected by the Federal Confidentiality of Alcohol and Drug Abuse Patient Records regulations: The Federal rules restrict any use of the information to criminally investigate or prosecute any alcohol or drug abuse patient.[facility] HospitalIn the event this information is protected by the Federal Confidentiality of Alcohol and Drug Abuse Patient Records regulations: The Federal rules restrict any use of the information to criminally investigate or prosecute any alcohol or drug abuse patient.[facility] HospitalIn the event this information is protected by the Federal Confidentiality of Alcohol and Drug Abuse Patient Records regulations: The Federal rules restrict any use of the information to criminally investigate or prosecute any alcohol or drug abuse patient.[facility] HospitalIn the event this information is protected by the Federal Confidentiality of Alcohol and Drug Abuse Patient Records regulations: The Federal rules restrict any use of the information to criminally investigate or prosecute any alcohol or drug abuse patient.[facility] HospitalIn the event this information is protected by the Federal Confidentiality of Alcohol and Drug Abuse Patient Records regulations: The Federal rules restrict any use of the information to criminally investigate or prosecute any alcohol or drug abuse patient.[facility] HospitalIn the event this information is protected by the Federal Confidentiality of Alcohol and Drug Abuse Patient Records regulations: The Federal rules restrict any use of the information to criminally investigate or prosecute any alcohol or drug abuse patient.[facility] HospitalIn the event this information is protected by the Federal Confidentiality of Alcohol and Drug Abuse Patient Records regulations: The Federal rules restrict any use of the information to criminally investigate or prosecute any alcohol or drug abuse patient.[facility] HospitalIn the event this information is protected by the Federal Confidentiality of Alcohol and Drug Abuse Patient Records regulations: The Federal rules restrict any use of the information to criminally investigate or prosecute any alcohol or drug abuse patient.[facility] HospitalIn the event this information is protected by the Federal Confidentiality of Alcohol and Drug Abuse Patient Records regulations: The Federal rules restrict any use of the information to criminally investigate or prosecute any alcohol or drug abuse patient.[facility] HospitalIn the event this information is protected by the Federal Confidentiality of Alcohol and Drug Abuse Patient Records regulations: The Federal rules restrict any use of the information to criminally investigate or prosecute any alcohol or drug abuse patient.[facility] HospitalIn the event this information is protected by the Federal Confidentiality of Alcohol and Drug Abuse Patient Records regulations: The Federal rules restrict any use of the information to criminally investigate or prosecute any alcohol or drug abuse patient.[facility] HospitalIn the event this information is protected by the Federal Confidentiality of Alcohol and Drug Abuse Patient Records regulations: The Federal rules restrict any use of the information to criminally investigate or prosecute any alcohol or drug abuse patient.[facility] HospitalIn the event this information is protected by the Federal Confidentiality of Alcohol and Drug Abuse Patient Records regulations: The Federal rules restrict any use of the information to criminally investigate or prosecute any alcohol or drug abuse patient.[facility] HospitalIn the event this information is protected by the Federal Confidentiality of Alcohol and Drug Abuse Patient Records regulations: The Federal rules restrict any use of the information to criminally investigate or prosecute any alcohol or drug abuse patient.[facility] HospitalIn the event this information is protected by the Federal Confidentiality of Alcohol and Drug Abuse Patient Records regulations: The Federal rules restrict any use of the information to criminally investigate or prosecute any alcohol or drug abuse patient.[facility] HospitalIn the event this information is protected by the Federal Confidentiality of Alcohol and Drug Abuse Patient Records regulations: The Federal rules restrict any use of the information to criminally investigate or prosecute any alcohol or drug abuse patient.[facility] HospitalIn the event this information is protected by the Federal Confidentiality of Alcohol and Drug Abuse Patient Records regulations: The Federal rules restrict any use of the information to criminally investigate or prosecute any alcohol or drug abuse patient.[facility] HospitalIn the event this information is protected by the Federal Confidentiality of Alcohol and Drug Abuse Patient Records regulations: The Federal rules restrict any use of the information to criminally investigate or prosecute any alcohol or drug abuse patient.[facility] HospitalIn the event this information is protected by the Federal Confidentiality of Alcohol and Drug Abuse Patient Records regulations: The Federal rules restrict any use of the information to criminally investigate or prosecute any alcohol or drug abuse patient.[facility] HospitalIn the event this information is protected by the Federal Confidentiality of Alcohol and Drug Abuse Patient Records regulations: The Federal rules restrict any use of the information to criminally investigate or prosecute any alcohol or drug abuse patient.[facility] HospitalIn the event this information is protected by the Federal Confidentiality of Alcohol and Drug Abuse Patient Records regulations: The Federal rules restrict any use of the information to criminally investigate or prosecute any alcohol or drug abuse patient.[facility] HospitalIn the event this information is protected by the Federal Confidentiality of Alcohol and Drug Abuse Patient Records regulations: The Federal rules restrict any use of the information to criminally investigate or prosecute any alcohol or drug abuse patient.[facility] HospitalIn the event this information is protected by the Federal Confidentiality of Alcohol and Drug Abuse Patient Records regulations: The Federal rules restrict any use of the information to criminally investigate or prosecute any alcohol or drug abuse patient.[facility] HospitalIn the event this information is protected by the Federal Confidentiality of Alcohol and Drug Abuse Patient Records regulations: The Federal rules restrict any use of the information to criminally investigate or prosecute any alcohol or drug abuse patient.[facility] HospitalIn the event this information is protected by the Federal Confidentiality of Alcohol and Drug Abuse Patient Records regulations: The Federal rules restrict any use of the information to criminally investigate or prosecute any alcohol or drug abuse patient.[facility] HospitalIn the event this information is protected by the Federal Confidentiality of Alcohol and Drug Abuse Patient Records regulations: The Federal rules restrict any use of the information to criminally investigate or prosecute any alcohol or drug abuse patient.[facility] HospitalIn the event this information is protected by the Federal Confidentiality of Alcohol and Drug Abuse Patient Records regulations: The Federal rules restrict any use of the information to criminally investigate or prosecute any alcohol or drug abuse patient.[facility] HospitalIn the event this information is protected by the Federal Confidentiality of Alcohol and Drug Abuse Patient Records regulations: The Federal rules restrict any use of the information to criminally investigate or prosecute any alcohol or drug abuse patient.[facility] HospitalIn the event this information is protected by the Federal Confidentiality of Alcohol and Drug Abuse Patient Records regulations: The Federal rules restrict any use of the information to criminally investigate or prosecute any alcohol or drug abuse patient.[facility] HospitalIn the event this information is protected by the Federal Confidentiality of Alcohol and Drug Abuse Patient Records regulations: The Federal rules restrict any use of the information to criminally investigate or prosecute any alcohol or drug abuse patient.[facility] HospitalIn the event this information is protected by the Federal Confidentiality of Alcohol and Drug Abuse Patient Records regulations: The Federal rules restrict any use of the information to criminally investigate or prosecute any alcohol or drug abuse patient.[facility] HospitalIn the event this information is protected by the Federal Confidentiality of Alcohol and Drug Abuse Patient Records regulations: The Federal rules restrict any use of the information to criminally investigate or prosecute any alcohol or drug abuse patient.[facility] HospitalIn the event this information is protected by the Federal Confidentiality of Alcohol and Drug Abuse Patient Records regulations: The Federal rules restrict any use of the information to criminally investigate or prosecute any alcohol or drug abuse patient.[facility] HospitalIn the event this information is protected by the Federal Confidentiality of Alcohol and Drug Abuse Patient Records regulations: The Federal rules restrict any use of the information to criminally investigate or prosecute any alcohol or drug abuse patient.[facility] HospitalIn the event this information is protected by the Federal Confidentiality of Alcohol and Drug Abuse Patient Records regulations: The Federal rules restrict any use of the information to criminally investigate or prosecute any alcohol or drug abuse patient.[facility] HospitalIn the event this information is protected by the Federal Confidentiality of Alcohol and Drug Abuse Patient Records regulations: The Federal rules restrict any use of the information to criminally investigate or prosecute any alcohol or drug abuse patient.[facility] HospitalIn the event this information is protected by the Federal Confidentiality of Alcohol and Drug Abuse Patient Records regulations: The Federal rules restrict any use of the information to criminally investigate or prosecute any alcohol or drug abuse patient.[facility] HospitalIn the event this information is protected by the Federal Confidentiality of Alcohol and Drug Abuse Patient Records regulations: The Federal rules restrict any use of the information to criminally investigate or prosecute any alcohol or drug abuse patient.[facility] HospitalIn the event this information is protected by the Federal Confidentiality of Alcohol and Drug Abuse Patient Records regulations: The Federal rules restrict any use of the information to criminally investigate or prosecute any alcohol or drug abuse patient.[facility] HospitalIn the event this information is protected by the Federal Confidentiality of Alcohol and Drug Abuse Patient Records regulations: The Federal rules restrict any use of the information to criminally investigate or prosecute any alcohol or drug abuse patient.[facility] HospitalIn the event this information is protected by the Federal Confidentiality of Alcohol and Drug Abuse Patient Records regulations: The Federal rules restrict any use of the information to criminally investigate or prosecute any alcohol or drug abuse patient.[facility] HospitalIn the event this information is protected by the Federal Confidentiality of Alcohol and Drug Abuse Patient Records regulations: The Federal rules restrict any use of the information to criminally investigate or prosecute any alcohol or drug abuse patient.[facility] HospitalIn the event this information is protected by the Federal Confidentiality of Alcohol and Drug Abuse Patient Records regulations: The Federal rules restrict any use of the information to criminally investigate or prosecute any alcohol or drug abuse patient.[facility] HospitalIn the event this information is protected by the Federal Confidentiality of Alcohol and Drug Abuse Patient Records regulations: The Federal rules restrict any use of the information to criminally investigate or prosecute any alcohol or drug abuse patient.[facility] HospitalIn the event this information is protected by the Federal Confidentiality of Alcohol and Drug Abuse Patient Records regulations: The Federal rules restrict any use of the information to criminally investigate or prosecute any alcohol or drug abuse patient.[facility] HospitalIn the event this information is protected by the Federal Confidentiality of Alcohol and Drug Abuse Patient Records regulations: The Federal rules restrict any use of the information to criminally investigate or prosecute any alcohol or drug abuse patient.[facility] HospitalIn the event this information is protected by the Federal Confidentiality of Alcohol and Drug Abuse Patient Records regulations: The Federal rules restrict any use of the information to criminally investigate or prosecute any alcohol or drug abuse patient.[facility] HospitalIn the event this information is protected by the Federal Confidentiality of Alcohol and Drug Abuse Patient Records regulations: The Federal rules restrict any use of the information to criminally investigate or prosecute any alcohol or drug abuse patient.[facility] HospitalIn the event this information is protected by the Federal Confidentiality of Alcohol and Drug Abuse Patient Records regulations: The Federal rules restrict any use of the information to criminally investigate or prosecute any alcohol or drug abuse patient.[facility] HospitalIn the event this information is protected by the Federal Confidentiality of Alcohol and Drug Abuse Patient Records regulations: The Federal rules restrict any use of the information to criminally investigate or prosecute any alcohol or drug abuse patient.[facility] HospitalIn the event this information is protected by the Federal Confidentiality of Alcohol and Drug Abuse Patient Records regulations: The Federal rules restrict any use of the information to criminally investigate or prosecute any alcohol or drug abuse patient.[facility] HospitalIn the event this information is protected by the Federal Confidentiality of Alcohol and Drug Abuse Patient Records regulations: The Federal rules restrict any use of the information to criminally investigate or prosecute any alcohol or drug abuse patient.[facility] HospitalIn the event this information is protected by the Federal Confidentiality of Alcohol and Drug Abuse Patient Records regulations: The Federal rules restrict any use of the information to criminally investigate or prosecute any alcohol or drug abuse patient.[facility] HospitalIn the event this information is protected by the Federal Confidentiality of Alcohol and Drug Abuse Patient Records regulations: The Federal rules restrict any use of the information to criminally investigate or prosecute any alcohol or drug abuse patient.[facility] Reason for Visit (unrecogniz ed section [...] Show Specialty Diagnoses / Procedures Referred By Contac t Referred To Contact Psychiatry / ADULT PSYCHIATRY Diagnoses follow up Procedures VIDEO PSYC/PSYL EST Maxine Ellis, [employer] [address] [place] [address] Maxine Ellis, [employer] [address] [place] [address] Referral ID Status Reason Start Date Expiration Date V isits Requested Visits Authorized [id number] New Request 06/28/2024 09/26/2024 1 1 Reason Comments Appointment Reason Comments Follow Up Specialty Diagnoses / Procedures Referred By Contac t Referred To Contact Psychiatry / ADULT PSYCHIATRY Diagnoses Provider Ordered Follow Up Procedures EST PSYC ADULT Maxine Ellis, [employer] [address] [place] [address] Maxine Ellis, [employer] [address] [place] [address] Referral ID Status Reason Start Date Expiration Date V isits Requested Visits Authorized [id number] New Request 08/14/2024 11/12/2024 1 1 Reason Comments Nasal Congestion drainage, cough, ups et stomach x 2 days Specialty Diagnoses / Procedures Referred By Contac t Referred To Contact Psychiatry / ADULT PSYCHIATRY Diagnoses 6 week follow up Procedures VIDEO PSYC/PSYL EST Maxine Ellis, [employer].[facility] [address] [place] [address] Phone: tel: fax: Maxine Ellis, [employer] [address] [place] [address] Phone: tel: fax: Referral ID Status Reason Start Date Expiration Date V isits Requested Visits Authorized [id number] New Request 09/25/2024 12/24/2024 1 1 Reason Comments Patient Question Reason Comments Imm/Inj Reason Comments Urinary Frequency urgency and low back pain, requesting hcg- Specialty Diagnoses / Procedures Referred By Contac t Referred To Contact Psychiatry / ADULT PSYCHIATRY Diagnoses 4-6 week follow up Procedures VIDEO PSYC/PSYL EST Maxine Ellis, [employer].[facility] [address] [place] [address] Phone: tel: fax: Maxine Ellis, [employer].[facility] [address] [place] [address] Phone: tel: fax: Referral ID Status Reason Start Date Expiration Date V isits Requested Visits Authorized [id number] New Request 11/22/2024 02/20/2025 1 1 Reason [...] 07/02 Specialty Diagnoses / Procedures Referred By Margarita t Referred To Contact Neurology Diagnoses Migraine without status migrainosus, not intractable, unspecified migraine type Unsteadiness on feet Numbness and tingling Demyelinating disease of central nervous system (HCC) Procedures OFFICE/OUTPATIENT [facility] 60 MINUTES Issac Fernández MD [address] [place] [address] Phone: tel: fax: Referral ID Status Reason Start Date Expiration Date V isits Requested Visits Authorized [id number] Closed PCP Requested Referral 01/25/2025 01/25/2026 1 [...] medication Procedures VIDEO PSYC/PSYL EST Maxine Ellis, [employer] [address] [place] [address] Phone: tel: fax: Maxine Ellis, [employer] [address] [place] [address] Phone: tel: fax: Referral ID Status Reason Start Date Expiration Date V isits Requested Visits Authorized [id number] New Request 03/21/2025 2025 1 1 Reason Comments Dizziness Sob, nasal congestio n, green mucus, sinus pressure x 5 days Specialty Diagnoses / Procedures Referred By Margarita t Referred To Contact Psychiatry / ADULT PSYCHIATRY Diagnoses med check Procedures EST PSYC ADULT Maxine Ellis, [employer] [address] [place] [address] Phone: tel: fax: Maxine Ellis, [employer] [address] [place] [address] Phone: tel: fax: Referral ID Status Reason Start Date Expiration Date V isits Requested Visits Authorized [id number] New Request 03/06/2025 06/04/2025 1 1 Care Teams (unrecognized sec tion and content) Focus Puller Relationship Specialty Start Date End Date Aden Dallas MD [address] [place], [place] [id number] PCP - General Pediatrics 05/08/10 Focus Puller Relationship Specialty Start Date End Date Aden Dallas MD [address] [place], [place] [id number] PCP - General Pediatrics 05/08/10 Team Status: [...] Recinos MD Referring Provider Active Monisha Vera MARKETING STRATEGY LEAD, MARKETING STRATEGY LEAD-C Attending Provider Active No Primary Care Physician Primary Care Provider Active Team Status: Inactive Member Role Status Dates No Primary Care Physician Primary Care Provider, Refer ring Provider Active Monisha Vera MARKETING STRATEGY LEAD, MARKETING STRATEGY LEAD-C Attending Provider Active Team Status: Inactive Member Role Status Dates Dr. Dennis Recinos MD Primary Care Provider Active Ed Physician Provider Attending Provider, Emergency Pr ovider Active Team Status: Inactive Member Role Status Dates Dr. Dennis Recinos MD Primary Care Provider Active Dr. Toshia Mendes DO Attending Provider, Refe rring Provider Active Team Status: Inactive Member Role Status Dates Dr. Mike Lundy DO Attending Provider, Emergency Provider Active No Primary Care Physician Primary Care Provider Active Team Status: Inactive Member Role Status Dates No Primary Care Physician Primary Care Provider Active Monisha Vera MARKETING STRATEGY LEAD, MARKETING STRATEGY LEAD-C Attending Provider Active Team Status: Active Member Role Status Dates No Primary Care Physician Primary Care Provider Active Dr. Leslie Serrano MD Attending Provider Active Monisha Vera MARKETING STRATEGY LEAD, MARKETING STRATEGY LEAD-C Referring Provider Active Team Status: Inactive Member [...] Physician Primary Care Provider Active Monisha Vera MARKETING STRATEGY LEAD, MARKETING STRATEGY LEAD-C Attending Provider, Referring Provider Active Team Status: [...] Activ e Kate Guy CNM Admit Provider, At tending Provider, [...] Provider, Refer ring Provider Active Lanie Antunez MARKETING STRATEGY LEAD, MARKETING STRATEGY LEAD-C Attending Provider Active Focus Puller Relationship Specialty Start Date End Date Aamir Mckeon DO [address] [place] [address] PCP - General Family Medicine 05/25/23 Team Status: Inactive Member Role Status Dates No Primary Care Physician Primary Care Provider Active Kate Guy CNM Attending Provider, Referring Pr ovider Active Focus Puller Relationship Specialty Start Date End Date Issac Fernández MD [address] [place], [place] [id number] PCP - General Family Medicine 05/14/24 Focus Puller Relationship Specialty Start Date End Date Issac Fernández MD [address] [place], [place] [address] PCP - General Family Medicine 05/14/24 Focus Puller Relationship Specialty Start Date End Date Issac Fernández MD [address] [place] [address] PCP - General Family Medicine 05/14/24 Focus Puller Relationship Specialty Start Date End Date Issac Fernández MD [address] [place] [address] PCP - General Family Medicine 05/14/24 Podlogar, CAITLYN MartinN.CHANNELER OUTSOLE [address] [place] [address] Legal Counsel Family Medicine 06/23/24 Focus Puller Relationship Specialty Start Date End Date Issac Fernández MD [address] [place] [address] PCP - General Family Medicine 05/14/24 Podlogar, Veronica, CONTAINER WASHER MACHINE.CHANNELER OUTSOLE [address] [place] [address] Legal Counsel Family Medicine 06/23/24 Focus Puller Relationship Specialty Start Date End Date Issac Fernández MD [address] [place] [address] PCP - General Family Medicine 05/14/24 Podlogar, Veronica, CONTAINER WASHER MACHINE.CHANNELER OUTSOLE [address] [place] [address] Legal Counsel Family Medicine 06/23/24 Focus Puller Relationship Specialty Start Date End Date Issac Fernández MD [address] [place] [address] PCP - General Family Medicine 05/14/24 PodlogarVeronica APRN.CHANNELER OUTSOLE [address] [place] [address] [facility] 06/23/24 Focus Puller Relationship Specialty Start Date End Date Issac Fernández MD [address] [place] [address] PCP - General Family Medicine 05/14/24 PodlogarVeronica APRN.CHANNELER OUTSOLE [address] [place] [address] Legal Counsel Family Medicine 06/23/24 Marychuy Calvin APRN.CHANNELER OUTSOLE [address] [place] [address] [facility] 10/08/24 Focus Puller Relationship Specialty Start Date End Date Issac Fernández MD [address] [place] [address] PCP - General Family Medicine 05/14/24 PodlogarVeronica APRN.CHANNELER OUTSOLE [address] [place] [address] [facility] 06/23/24 Marychuy Calvin CONTAINER WASHER MACHINE.CHANNELER OUTSOLE [address] [place] [address] [facility] Medicine 10/08/24 Focus Puller Relationship Specialty Start Date End Date Issac Fernández MD [address] [place] [address] PCP - General Family Medicine 05/14/24 Podlogar, Veronica, CONTAINER WASHER MACHINE.CHANNELER OUTSOLE [address] [place] [address] Legal Counsel Family Medicine 06/23/24 Marychuy Calvin APRN.CHANNELER OUTSOLE [address] [place] [address] Legal Counsel Family Medicine 10/08/24 Focus Puller Relationship Specialty Start Date End Date Issac Fernández MD [address] [place] [address] PCP - General Family Medicine 05/14/24 Podlogar, Veronica CONTAINER WASHER MACHINE.CHANNELER OUTSOLE [address] [place] [address] Legal Counsel Family Medicine 06/23/24 Marychuy Calvin APRN.CHANNELER OUTSOLE [address] [place] [address] Legal Counsel Family Medicine 10/08/24 Focus Puller Relationship Specialty Start Date End Date Issac Fernández MD [address] [place] [address] PCP - General Family Medicine 05/14/24 Podlogar, Veronica CONTAINER WASHER MACHINE.CHANNELER OUTSOLE [address] [place] [address] Legal Counsel Family Medicine 06/23/24 Marychuy Calvin CONTAINER WASHER MACHINE.CHANNELER OUTSOLE [address] [place] [address] Legal Counsel Family Medicine 10/08/24 Focus Puller Relationship Specialty Start Date End Date Issac Fernández MD [address] [facility] [place] [address] PCP - General Family Medicine 05/14/24 PodlogarVeronica APRN.CHANNELER OUTSOLE [address] [facility] [place] [address] Legal Counsel Family Medicine 06/23/24 Marychuy Calvin APRN.CHANNELER OUTSOLE [address] [place] [address] Legal Counsel Family Medicine 09/28/24 10/07/24 Marychuy Calvin APRN.CHANNELER OUTSOLE [address] [place] [address] Legal Counsel Family Medicine 10/08/24 Focus Puller Relationship Specialty Start Date End Date Issac Fernández MD [address] [facility] [place] [address] PCP - General Family Medicine 05/14/24 PodlogarVeronica APRN.CHANNELER OUTSOLE [address] [facility] [place] [address] Legal Counsel Family Medicine 06/23/24 Marychuy Calvin APRN.CHANNELER OUTSOLE [address] [place] [address] Legal Counsel Family Medicine 10/08/24 Focus Puller Relationship Specialty Start Date End Date Issac Fernández MD [address] [facility] [place] [address] PCP - General Family Medicine 05/14/24 PodlogarVeronica CONTAINER WASHER MACHINE.CHANNELER OUTSOLE [address] [facility] [place] [address] Legal Counsel Family Medicine 06/23/24 Focus Puller Relationship Specialty Start Date End Date Issac Fernández MD [address] [place] [address] PCP - General Family Medicine 05/14/24 PodlogarVeronica APRN.CHANNELER OUTSOLE [address] [place] [address] Legal Counsel Family Medicine 06/23/24 Marychuy Calvin APRN.CHANNELER OUTSOLE [address] [place] [address] [facility] 12/27/24 Focus Puller Relationship Specialty Start Date End Date Issac Fernández MD [address] [place] [address] PCP - General Family Medicine 05/14/24 PodlogarVeronica APRN.CHANNELER OUTSOLE [address] [place] [address] Legal Counsel Family Medicine 06/23/24 Marychuy Calvin APRN.CHANNELER OUTSOLE [address] [place] [address] Legal Counsel Family Medicine 12/27/24 Focus Puller Relationship Specialty Start Date End Date Issac Fernández MD [address] [place] [address] PCP - General Family Medicine 05/14/24 PodlogarVeronica APRN.CHANNELER OUTSOLE [address] [place] [address] Legal Counsel Family Medicine 06/23/24 Marychuy Calvin APRN.CHANNELER OUTSOLE [address] [place] [address] Legal Counsel Family [facility] 10/08/24 12/02/24 Marychuy Calvin APRN.CHANNELER OUTSOLE [address] [place] [address] [facility] 12/27/24 Focus Puller Relationship Specialty Start Date End Date Issac Fernández MD [address] [place] [address] PCP - General Family Medicine 05/14/24 PodlogarVeronica APRN.CHANNELER OUTSOLE [address] [place] [address] Legal Counsel Family Medicine 06/23/24 Marychuy Calvin APRN.CHANNELER OUTSOLE [address] [place] [address] [facility] 12/27/24 Focus Puller Relationship Specialty Start Date End Date Issac Fernández MD [address] [place] [address] PCP - General Family Medicine 05/14/24 Podlogar, LAVELL Martin.CHANNELER OUTSOLE [address] [place] [address] Legal Counsel Family Medicine 06/23/24 Marychuy Calvin CONTAINER WASHER MACHINE.CHANNELER OUTSOLE [address] [place] [address] [facility] 12/27/24 Focus Puller Relationship Specialty Start Date End Date Issac Fernández MD [address] [facility] [place] [address] PCP - General Family Medicine 05/14/24 Podlogar, Veronica, CONTAINER WASHER MACHINE.CHANNELER OUTSOLE [address] [facility] [place] [address] Legal Counsel Family Medicine 06/23/24 Marychuy Calvin CONTAINER WASHER MACHINE.CHANNELER OUTSOLE [address] [place] [address] [facility] 12/27/24 Focus Puller Relationship Specialty Start Date End Date Issac Fernández MD [address] [facility] [place] [address] PCP - General Family Medicine 05/14/24 Podlogar, Veronica, CONTAINER WASHER MACHINE.CHANNELER OUTSOLE [address] [place] [address] [facility] Family Medicine 06/23/24 Marychuy Calvin, CONTAINER WASHER MACHINE.CHANNELER OUTSOLE [address] [place] [address] [facility] Medicine 12/27/24 Focus Puller Relationship Specialty Start Date End Date Issac Fernández MD [address] [facility] [place] [address] PCP - General Family Medicine 05/14/24 Podlogar, Veronica, CONTAINER WASHER MACHINE.CHANNELER OUTSOLE [address] [facility] [place] [address] Legal Counsel Family Medicine 06/23/24 Marychuy Calvin APRN.CHANNELER OUTSOLE [address] [place] [address] [facility] 12/27/24 Focus Puller Relationship Specialty Start Date End Date Issac Fernández MD [address] [facility] [place] [address] PCP - General Family Medicine 05/14/24 Podlogar, Veronica CONTAINER WASHER MACHINE.CHANNELER OUTSOLE [address] [facility] [place] [address] Legal Counsel Family Medicine 06/23/24 Marychuy Calvin, LAVELL.CHANNELER OUTSOLE [address] [place] [address] [facility] 12/27/24 Focus Puller Relationship Specialty Start Date End Date Issac Fernández MD [address] [facility] [place] [address] PCP - General Family Medicine 05/14/24 Podlogar, Veronica, CONTAINER WASHER MACHINE.CHANNELER OUTSOLE [address] [place] [address] Legal Counsel Family Medicine 06/23/24 Marychuy Calvin CONTAINER WASHER MACHINE.CHANNELER OUTSOLE [address] [place] [address] [facility] Family Medicine 12/27/24 Focus Puller Relationship Specialty Start Date End Date Issac Fernández MD [address] [facility] [place] [address] PCP - General Family Medicine 05/14/24 Podlogar, Veronica CONTAINER WASHER MACHINE.CHANNELER OUTSOLE [address] [place] [address] Legal Counsel Family Medicine 06/23/24 Marychuy Calvin APRN.CHANNELER OUTSOLE [address] [place] [address] Legal Counsel Family Medicine 12/27/24 Focus Puller Relationship Specialty Start Date End Date Issac Fernández MD [address] [place] [address] PCP - General Family Medicine 05/14/24 PodlogarVeronica APRN.CHANNELER OUTSOLE [address] [place] [address] Legal Counsel Family Medicine 06/23/24 Marychuy Calvin APRN.CHANNELER OUTSOLE [address] [place] [address] Legal Counsel Family Medicine 12/27/24 Focus Puller Relationship Specialty Start Date End Date Issac Fernández MD [address] [place] [address] PCP - General Family Medicine 05/14/24 PodlogarVeronica APRN.CHANNELER OUTSOLE [address] [place] [address] Legal Counsel Family Medicine 06/23/24 Marychuy Calvin APRN.CHANNELER OUTSOLE [address] [place] [address] Legal Counsel Family Medicine 12/27/24 Focus Puller Relationship Specialty Start Date End Date Issac Fernández MD [address] [place] [address] PCP - General Family Medicine 05/14/24 PodlogarVeronica APRN.CHANNELER OUTSOLE [address] [place] [address] Legal Counsel Family Medicine 06/23/24 Marychuy Calvin APRN.CHANNELER OUTSOLE [address] [place] [address] Legal Counsel Family Medicine 12/27/24 Focus Puller Relationship Specialty Start Date End Date Issac Fernández MD [address] [place] [address] PCP - General Family Medicine 05/14/24 PodlogarVeronica APRN.CHANNELER OUTSOLE [address] [place] [address] Legal Counsel Family Medicine 06/23/24 Marychuy Calvin APRN.CHANNELER OUTSOLE [address] [place] [address] [facility] 12/27/24 Focus Puller Relationship Specialty Start Date End Date Issac Fernández MD [address] [place] [address] PCP - General Family Medicine 05/14/24 PodlogarVeronica CONTAINER WASHER MACHINE.CHANNELER OUTSOLE [address] [place] [address] Legal Counsel Family Medicine 06/23/24 Marychuy Calvin CONTAINER WASHER MACHINE.CHANNELER OUTSOLE [address] [place] [address] [facility] Family [facility] 12/27/24 Goals (unrecognized section and content) Goals [...] section and content) DATE CREATED AUTHOR 09/23/2023 [facility] DATE CREATED AUTHOR AUTHOR'S ORGANIZ ATION 10/22/2024 [facility] DATE CREATED AUTHOR AUTHOR'S ORGANIZ ATION 04/03/2025 [facility] DATE CREATED AUTHOR AUTHOR'S ORGANIZ ATION 04/07/2025 [facility] FOR RECORDS PERTAINING TO PATIENTS WHO [...] BE BASED ON THE PRIMARY CLINICAL RECORDS. [employer] provides no warranty or guarantee of the accuracy or completeness of information in this document.
[2025-04-07 11:24] LABS: Internal QC Validated? YES +Cl - CLEAR BKGD; Pregnancy, Serum, hCG Quali. NEGATIVE Negative; Record Kit Lot#, Serum Preg. 0000964736
[2025-04-07 11:28] LABS: Anion Gap 10 (5-15); BUN 10 mg/dL (4-19); BUN/Creat Ratio 13.7 RATIO (10-20); Calcium,Total 9.4 mg/dL (7.6-11.0); Carbon Dioxide 25.1 mmol/L (21.0-32.0); Chloride 105 mmol/L (98-108); Estimated Creatinine Clearance 116.47 ml/min (50-250); Glucose 122 mg/dL (70-99); Potassium 4.3 mmol/L (3.3-5.1)
[2025-04-07 11:33] LABS: Reactive Lymphocyte 2+
[2025-04-07] MEDS: 0.9% Normal Saline (1000mL) 1,000 ML 999 ML IV ×2 (11:38→12:58)
[2025-04-07] MEDS: DiphenhydrAMINE 50 MG/ML Syringe 25 MG IV (11:59)
[2025-04-07 12:17] VITALS: BP 94/68; PULSE 61; RESP 20; O2SAT 96
[2025-04-07 14:00] VITALS: BP 102/63; PULSE 77; RESP 16; O2SAT 99
[2025-04-07 14:12] VITALS: BP 102/63; PULSE 77; RESP 16; TEMP 36.3; O2SAT 99
== END 2025-04-07 14:12 | disposition home or self-care (01) ==
PROVIDERS: Emergency Provider Emergency Medicine; PCP Nurse Practitioner Primary Care; Visit Provider Emergency Medicine
DX: R42 Dizziness and giddiness (principal); R51.9 Headache, unspecified; R00.2 Palpitations; F17.290 Nicotine dependence, other tobacco product, uncomplicated
CPT/HCPCS: 71045; 80048; 81001; 84703; 85025; 93005; 96374; 96375; 96376; 99285; A4216

== ENCOUNTER 2025-04-13 15:18 | Emergency (ER) | payer OTHER, SELFPAY ==
--- OUTSIDE RECORDS SUMMARY | 2025-04-12 09:38 | XMS RPT_ITS ---
Author Name [employer] Care Team Providers Care Family Coach Name Role Phone TOBIAS TAN PA-C Attending Unavailable TOBIAS TAN PA-C Primary Care Unavailable TOBIAS TAN PA-C Primary Care Unavailable MARIELLE DANG Attending Unavaila ISSAC Fink Primary Care Unavailab cristina GUERRALOGVERONICA BERGER Attending Unavailable MAXINE ELLIS Referring Unavailable ISSAC FERNÁNDEZ Primary Care Unavailab MAXINE Jones Attending Unavailable ISSAC FERNÁNDEZ Primary Care Unavailab ROHAN Antunez Attending Unavailable ISSAC FERNÁNDEZ Primary Care Unavailab VERONICA Stockton Referring Unavailable VERONICA MUSE Attending Unavailable ISSAC FERNÁNDEZ Primary Care Unavailab ISSAC Lock Primary Care Unavailab ISSAC Lock Attending Unavailab ISSAC Lock Referring Unavailab ISSAC Lock Primary Care Unavailab ISSAC Lock Primary Care Unavailab JAMAL Cain Referring Unavailable ISSAC FERNÁNDEZ Primary Care Unavailab CITLALI Alcantar Referring Unavailable ISSAC FERNÁNDEZ Primary Care Unavailab ISSAC Lock Referring Unavailab CITLALI Alcantar Attending Unavailable ISSAC FERNÁNDEZ Primary Care Unavailab ROHAN Antunez Attending Unavailable ISSAC FERNÁNDEZ Primary Care Unavailab le ISSAC FERNÁNDEZ Referring Unavailab CITLALI Alcantar Attending Unavailable ISSAC FERNÁNDEZ Primary Care Unavailab ISSAC Lock Referring Unavailab ISSCA Lock Primary Care Unavailab JAMAL Cain Attending Unavailable ISSAC FERNÁNDEZ Primary Care Unavailab VERONICA Stockton Referring Unavailable ISSAC FERNÁNDEZ Primary Care Unavailab MAXINE Jones Referring Unavailable MAXINE ELLIS Attending Unavailable ISSAC FERNÁNDEZ Primary Care Unavailab ISSAC Lock Attending Unavailab ISSAC Lock Primary Care Unavailab BHARAT Gomez Attending Unavailable ROHAN VILLALBA Attending Unavailable ISSAC FERNÁNDEZ Primary Care Unavailab SIERRA Weber Attending Unavailable ISSAC FERNÁNDEZ Primary Care Unavailab ISSAC Lock Attending Unavailab ISSAC Lock Primary Care Unavailab ISSAC Lock Referring Unavailab ISSAC Lock Primary Care Unavailab ISSAC Lock Attending Unavailab ISSAC Lock Primary Care Unavailab MAXINE Jones Referring Unavailable ISSAC FERNÁNDEZ Primary Care Unavailab MAXINE Jones Attending Unavailable ISSAC FERNÁNDEZ Primary Care Unavailab le MAXINE ELLIS Referring Unavailable ISSAC FERNÁNDEZ Primary Care Unavailab MAXINE Jones Attending Unavailable ISSAC FERNÁNDEZ Primary Care Unavailab ISSAC Lock Primary Care Unavailab JAMAL Cain Attending Unavailable ISSAC FERNÁNDEZ Primary Care Unavailab TIMMY Lyn Attending Unavailable ISSAC FERNÁNDEZ Primary Care Unavailab le ISSAC FERNÁNDEZ Primary Care Unavailab SANTOS Bell Referring Unavailable MAXINE ELLIS Attending Unavailable ISSAC FERNÁNDEZ Primary Care Unavailab MAXINE Jones Referring Unavailable ISSAC FERNÁNDEZ Primary Care Unavailab le MAXINE ELLIS Attending Unavailable PROBLEMS DATE TYPE CONDITION / CODE ATTENDING STATUS [facility] 04/07/2025 Active Dizziness / R42(ICD-10) JADE VILLALBA Active [facility] 04/07/2025 Active Tachycardia / R00.0(ICD-10) ROHAN VILLALBA Active [facility] 03/28/2025 Active Positional lightheadedness / R42(ICD-10) NA Active [facility] 03/28/2025 Active SOB (shortness o f breath) / R06.02(ICD-10) BHARAT MOSHER [facility] 03/28/2025 Active Nasal congestion / R09.81(ICD-10) BHARAT MOSHER [facility] 03/28/2025 Active Right leg pain / M79.604(ICD-10) BHARAT MOSHER [facility] 03/22/2025 Active Asymptomatic eirka icose veins of right lower extremity / I83.91(ICD-10) ISSCA FERNÁNDEZ [facility] 03/22/2025 Active Hypotension, uns pecified hypotension type / I95.9(ICD-10) ISSAC FERNÁNDEZ [facility] 08/04/2021 Active Moderate episode of recurrent major depressive disorder (HCC) / F33.1(ICD-10) MAXINE ELLIS [facility] 03/21/2025 Active Mixed obsessiona l thoughts and acts / F42.2(ICD-10) MAXINE ELLIS [facility] 03/21/2025 Active Encounter for lo ng-term (current) use of medications / Z79.899(ICD-10) MAXINE ELLIS [facility] 03/21/2025 Active anxie ty (HCC) / O99.345(ICD-10) MAXINE ELLIS [facility] 03/21/2025 Active anxie ty (HCC) / F41.8(ICD-10) MAXINE ELLIS [facility] 03/20/2025 Active Hx of gestationa l diabetes mellitus, not currently / Z86.32(ICD-10) NA Active [facility] 03/14/2025 Active 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 / G43.119(ICD-10) CITLALI CEJA Active [facility] 03/05/2025 Active Annual physical exam / Z00.00(ICD-10) PODLOGAR, VERONICA Active [facility] 03/05/2025 Active Screening-pulmon ambika TB / Z11.1(ICD-10) PODLOGAR, VERONICA Active [facility] 03/05/2025 Active Gastroesophageal reflux disease, unspecified whether esophagitis present / K21.9(ICD-10) PODLOGAR, VERONICA Active [facility] 03/05/2025 Active Migraine without aura, not intractable, without status migrainosus / G43.009(ICD-10) PODLOGAR, VERONICA Active [facility] 03/05/2025 Active Anxiety disorder , unspecified type / F41.9(ICD-10) PODLOGAR, VERONICA Active [facility] 03/03/2025 Active Sore throat / J02.9(ICD-10) ROHAN VILLALBA Active [facility] 02/22/2025 Active Migraine without status migrainosus, not intractable, unspecified migraine type / G43.909(ICD-10) CITLALI CEJA Active [facility] 02/22/2025 Active Unsteadiness on feet / R26.81(ICD-10) CITLALI CEJA Active [facility] 02/22/2025 Active Numbness and tin gling / R20.0(ICD-10) CITLALI CEJA Active [facility] 02/22/2025 Active Numbness and tin gling / R20.2(ICD-10) CITLALI CEJA Active [facility] 02/22/2025 Active Demyelinating di sease of central nervous system (HCC) / G37.9(ICD-10) CITLALI CEJA Active [facility] 02/18/2025 Active Family history o f thyroid disease / Z83.49(ICD-10) NA Active [facility] 02/14/2025 Active Pharyngitis, uns pecified etiology / J02.9(ICD-10) NA Active [facility] 02/07/2025 Active Impacted cerumen of right ear / H61.21(ICD-10) ROHAN VILLALBA Active [facility] 02/07/2025 Active Rhinosinusitis / J32.9(ICD-10) ROHAN VILLALBA Active [facility] 01/25/2025 Active Blurred vision / H53.8(ICD-10) ISSAC FERNÁNDEZ Active [facility] 01/25/2025 Active Dizziness and gi ddiness / R42(ICD-10) ISSAC FERNÁNDEZ Active [facility] 12/27/2024 Active Palpitations / R00.2(ICD-10) ISSAC FERNÁNDEZ Active [facility] 12/27/2024 Active Encounter for pr egnancy test, result unknown / Z32.00(ICD-10) ISSAC FERNÁNDEZ Active [facility] 11/30/2024 Active Migraine with au ra, intractable, without status migrainosus / G43.119(ICD-10) PODLOGVERONICA BERGER Active [facility] 11/30/2024 Active Mother currently breast-feeding (HCC) / Z39.1(ICD-10) PODLOGVERONICA BERGER Active [facility] 11/06/2024 Active Urinary frequenc y / R35.0(ICD-10) JAMAL CORTEZ Active [facility] 11/06/2024 Active Low back pain wi th sciatica, sciatica laterality unspecified, unspecified back pain laterality, unspecified chronicity / M54.40(ICD-10) JAMAL CORTEZ Active [facility] 11/01/2024 Active Encounter for immunization / Z23(ICD-10) PHYLLIS Active [facility] 10/08/2024 Unknown Dizziness and gi ddiness / R42(ICD-10) MARIELLE DANG Active [facility] 08/14/2024 Active anxie ty / O99.345(ICD-10) MAXINE ELLIS Active [facility] 08/14/2024 Active anxie ty / F41.8(ICD-10) NILAYMAXINE VALDES Active [facility] 08/14/2024 Active MARK (generalized anxiety disorder) / F41.1(ICD-10) NOHEMIMAXINE SALINAS Active [facility] 08/14/2024 Active Social anxiety d isorder / F40.10(ICD-10) MAXINE ELLIS Active [facility] PROCEDURES No Procedure Records Found RESULTS CNOV Observed: 04/12/2025 10:00 AM Status: COMPLETED Source: [facility] Office Visit (FAMPWS) SHAWANDA BRINK ([id number]) 1 F Date Time Provider Department 04/12/25 10:00 AM [facility] During your visit today, we recorded the following information about you: Temperature Pulse Respiration Blood pressure 98.2 degrees 104/minute 14/minute 118/80 Weight Height 73.1 kg 1.624 m Issac Fernández MD 04/12/2025 10:33 AM Signed Chief Complaint Patient presents with: ER F/U: Concerned about her immune system. Recently had Hand Foot Mouth. She states her tachycardia and head pressure symptoms have been exacerbated since Hand Foot Mouth. Fever: Intermittent fevers last 7 days Recording using [employer] software for draft documentation of the visit was discussed with the patient/authorized sales representative printing paper; all questions welcomed and answered. Patient/authorized sales representative printing paper agreed to proceed HPI Shawanda Brink is a 19 year old female who presents here today for Above Complaints. Palpitations: - Shawanda Brink's initial episode began at work a few days ago, with heart rate increasing to 160 bpm while sitting. - Subsequent episodes triggered by standing or minimal exertion, with heart rate reaching 162 bpm. - Episodes last several minutes and are associated with near-syncope. - Evaluated at [facility] ED on 04/07 for these complaints and migraine. - Workup included EKG-normal, CXR-normal, CBC/CMP-unremarkable, urine preg-negative, UA-negative - Given a migraine cocktain and was discharged home with recommendation to follow up with our office. - Still getting episodes of palpitations since discharge. Typically occurs with change in position or when working. - Heart rate decreases to 90s when lying down or resting. - Shawanda denies chest pressure, dyspnea, or radiation of pain to neck or arm, nausea, SOB, lightheadedness with episodes. - Recent Holter monitor in January and EKG showed no arrhythmias. Echo this month was normal. - Upcoming tilt table test scheduled for April 19. Headaches: - Persistent headache and head pressure x15 days, relieved briefly by ER-administered migraine cocktail. - Associated with facial flushing and pallor. - Shawanda was recently prescribed propranolol 10 mg BID by neurology, not yet started. Intermittent Fevers: - Intermittent fevers up to 101.4 degreeF with last high temp 2-3 days ago. - Had hand foot and mouth 2 weeks ago and rash has resolved. - Shawanda denies cough, wheezing, dysuria, increased urinary frequency, emesis, diarrhea, or abdominal pain. - Recent viral infection with hand, foot, and mouth disease 14 days ago, contracted from children. Blood Pressure Fluctuations: - Shawanda noted fluctuations in blood pressure, with readings ranging from 99/xx to 141/104 mmHg. - Monitors blood pressure at home. Lifestyle: - Shawanda denies use of illicit drugs, including cocaine and methamphetamines. Past medical history, appointments, medications, allergies reviewed. [...] Maternal Grandmother Cervical Cancer Maternal Grandmother other (PR) Maternal Grandfather 49 other (depression and anxiety) Paternal Grandmother Bipolar disorder Paternal Grandmother Anxiety disorder Paternal Grandfather Cancer Other PATERNAL AND MATERNAL SIDES Diabetes Other PATERNAL AND MATERNAL SIDES other (CLOTTING DISORDER) Other PATERNAL SIDE - FACTOR 5 DISORDER Paternal great aunt Patient Allergies ALLERGIES Allergen Reactions Compazine [Prochlor* Mental Status Change Celexa [Citalopram] Other: See Comments Tunnel vision Lexapro [Escitalopr* Rash Current Medications Current Outpatient Medications on File Prior to Visit Medication Sig pantoprazole DR (PROTONIX) 20 mg tablet Take 1 tablet by mouth once daily. fluticasone (FLONASE) 50 mcg/actuation nasal spray propranolol (INDERAL) 10 mg tablet Take 1 tablet by mouth two times a day. (Patient not taking: Reported on 04/12/2025) eletriptan (RELPAX) 20 mg tablet Take 1 tablet by mouth as needed. at the onset of migraine headache. (Patient not taking: Reported on 04/12/2025) No current facility-administered medications on file prior to visit. Social History SOCIAL HISTORY[1] Review of Symptoms REVIEW OF SYSTEMS GENERAL: No weight loss, malaise or fevers RESPIRATORY: Negative for cough, hemoptysis, wheezing, COPD, dyspnea or shortness of breath CARDIOVASCULAR: See HPI GI: No nausea, vomiting, or diarrhea SKIN: Negative for lesions, rash, and itching EXAM: BP 118/80 Pulse 104 Temp 36.8 ?C (98.2 ?F) Resp 14 Ht 162.4 cm (5' 3.94) Wt 73.1 kg (161 lb 3.2 oz) LMP (LMP Unknown) SpO2 99% BMI 27.72 kg/m? General Appearance: Well appearing, alert, in no acute distress, well-hydrated, well nourished.. Skin: Skin color, texture, turgor normal, no suspicious rashes or lesions. Lungs: Lungs clear to auscultation. No wheezing, rhonchi, rales.. Heart: Negative findings: no murmurs, clicks, or gallops, Positive findings: tachycardia. Abdomen: Normal abdominal exam, Abdomen soft, non-tender. [...] Control Test Discontinued Asthma Action Plan Discontinued Data reviewed Latest Ref Rng 02/14/2025 02/18/2025 03/20/2025 03/28/2025 WBC 3.70 - 11.00 k/uL 5.98 RBC [...] Abs Lymph 1.00 - 4.00 k/uL 2.47 Callahan% % 3.8 Abs Callahan <0.87 k/uL 0.23 Eosin% % 1.3 Abs [...] 8 - 15 mmol/L 13 eGFR >=60 mL/min/1.73m? 124 Hemoglobin A1C 4.3 - 5.6 % 5.1 Estimated Average Glucose mg/dL 100 T3 79 - 165 ng/dL 109 Free T4 0.9 - 1.7 ng/dL 1.3 THYROID PEROXIDASE ANTIBODY <5.6 IU/mL <3.0 Vitamin B12 232 - 1,245 pg/mL 475 Folate >4.7 ng/mL >20.0 TSH 0.270 - 4.200 mIU/L 0.624 Legend: (L) Low 1. Palpitations (R00.2) 2. Migraine without aura, not intractable, without status migrainosus (G43.009) - Recent workup including EKG, 2-week Holter monitor (January), and echocardiogram (April 18) have not shown any underlying arrhythmia or structural heart disease. - Symptoms and clinical history are most consistent with POTS; tilt table test scheduled for April 19. - Start propranolol 10 mg PO BID as prescribed by neurology for migraine prophylaxis and heart rate control. - Discussed that propranolol may help with both migraine prevention and heart rate control; current dose is low, and may be increased if needed. - Advised to stay well hydrated (at least 64 oz water daily), avoid caffeine and stimulants, and change positions slowly. - Instructed to return to ER if heart rate remains >120 and does not slow down, or if chest pressure, severe dyspnea, diaphoresis, nausea, or other concerning symptoms develop. - Refer to cardiology for further evaluation. - Follow-up as needed; next scheduled visit April 29. 3. Hand, foot and mouth disease (B08.4) 4. Fever, unspecified fever cause (R50.9) - Recent viral infection (hand, foot, and mouth disease) likely explains recent low-grade fevers - No current evidence of ongoing infection; chest X-ray and urinalysis were normal on 04/07. normal exam today aside from mild tachcyardia. - Advised supportive care and monitoring; no additional testing or repeat blood work indicated at this time. Issac Fernández MD [1] Social History Tobacco Use Smoking status: Never Smokeless tobacco: Never Vaping Use Vaping status: Never Used Substance Use Topics Alcohol use: Never Drug use: Never Issac Fernández MD 04/12/2025 10:23 AM Signed - group work program aide your propranolol prescription and begin taking 10 mg by mouth twice daily as directed. - Continue taking your migraine medications as previously prescribed. - Attend your scheduled tilt table test on April 19 at [facility] to evaluate for postural orthostatic tachycardia syndrome (POTS). - Arrange and attend a cardiology appointment as directed; the front end web developer will help you schedule this. - Stay well hydrated by drinking at least 64 ounces of water each day. - Avoid caffeine, alcohol, and other stimulants. - When standing up or changing positions, do so slowly to help prevent sudden heart rate spikes. - If your heart rate stays above 120 bpm and doesn?t slow down, or if you develop chest pressure (feels like an elephant on your chest), pain spreading to your neck or arm, sweating, nausea, or trouble breathing, go to the emergency department. - Follow up in this clinic on April 29 (as needed) to review your test results and symptoms. Allergies As of Date: 04/12/2025 Noted Allergy Reaction COMPAZINE (PROCHLORPERAZINE) 04/12/2025 1 - Mental Status Change CELEXA (CITALOPRAM) 03/21/2024 14 - Other: See Comments Comments: Tunnel vision LEXAPRO (ESCITALOPRAM) 03/21/2024 2 - Rash Date Reviewed: 04/12/2025 Reviewed by: Nasima Guthrie MA - Fully Assessed Reason for Visit: ER F/U [41] Cmt: Concerned about her immune system. Recently had Hand Foot Mouth. She states her tachycardia and head pressure symptoms have been exacerbated since Hand Foot Mouth. Fever [47] Cmt: Intermittent fevers last 7 days Primary Visit Diagnosis:Palpitations [R00.2] Other Visit Diagnoses:Migraine without aura, not intractable, without status migrainosus [G43.009] Hand, foot and mouth disease [B08.4] Fever, unspecified fever cause [R50.9] Order(s):CONSULT TO CARDIOLOGY [9004] Order #: [id number]: 1 FUTURE Prescriptions as of 04/12/2025 - propranolol (INDERAL) 10 mg tablet Take 1 tablet by mouth two times a day. - eletriptan (RELPAX) 20 mg tablet Take 1 tablet by mouth as needed. at the onset of migraine headache. - pantoprazole DR (PROTONIX) 20 mg tablet Take 1 tablet by mouth once daily. - fluticasone (FLONASE) 50 mcg/actuation nasal spray Problem List As Of Date 04/12/2025 Noted Resolved Acne vulgaris [L70.0] 08/18/2015 Mild persistent asthma without complication [J4*09/27/2016 Flat foot [M21.40] 07/20/2017 Influenza vaccine refused [Z28.21] 07/20/2017 Depression [F32.A] 08/04/2021 Generalized anxiety disorder [F41.1] 08/04/2021 Other instructions from your clinician: - group work program aide your propranolol prescription and begin taking 10 mg by mouth twice daily as directed. - Continue taking your migraine medications as previously prescribed. - Attend your scheduled tilt table test on April 19 at [facility] to evaluate for postural orthostatic tachycardia syndrome (POTS). - Arrange and attend a cardiology appointment as directed; the front end web developer will help you schedule this. - Stay well hydrated by drinking at least 64 ounces of water each day. - Avoid caffeine, alcohol, and other stimulants. - When standing up or changing positions, do so slowly to help prevent sudden heart rate spikes. - If your heart rate stays above 120 bpm and doesn?t slow down, or if you develop chest pressure (feels like an elephant on your chest), pain spreading to your neck or arm, sweating, nausea, or trouble breathing, go to the emergency department. - Follow up in this clinic on April 29 (as needed) to review your test results and symptoms. Medications Discontinued During This Encounter Prescriptions - amitriptyline (ELAVIL) 25 mg tablet (Discontinued) Take 1 tablet by mouth daily at bedtime. Disposition: Return if symptoms worsen or fail to improve. Follow-up and Disposition History for Encounter Date Provider Department Center 04/12/2025 [id number] FERNÁNDEZ [facility] Encounter Status:Closed by ISSAC FERNÁNDEZ on 04/12/25 PROGRESS Observed: 04/12/2025 9:59 AM Status: COMPLETED Source: [facility] HNO ID: [id number] Author: ISSAC FERNÁNDEZ MD Service: ? Author Type: Physician Type: Progress Notes Filed: 04/12/2025 10:33 Note Text: Chief Complaint Patient presents with: ER F/U: Concerned about her immune system. Recently had Hand Foot Mouth. She states her tachycardia and head pressure symptoms have been exacerbated since Hand Foot Mouth. Fever: Intermittent fevers last 7 days Recording using [employer] software for draft documentation of the visit was discussed with the patient/authorized sales representative printing paper; all questions welcomed and answered. Patient/authorized sales representative printing paper agreed to proceed HPI Shawanda Brink is a 19 year old female who presents here today for Above Complaints. Palpitations: - Shawanda Brink's initial episode began at work a few days ago, with heart rate increasing to 160 bpm while sitting. - Subsequent episodes triggered by standing or minimal exertion, with heart rate reaching 162 bpm. - Episodes last several minutes and are associated with near-syncope. - Evaluated at [facility] ED on 04/07 for these complaints and migraine. - Workup included EKG-normal, CXR-normal, CBC/CMP-unremarkable, urine preg-negative, UA-negative - Given a migraine cocktain and was discharged home with recommendation to follow up with our office. - Still getting episodes of palpitations since discharge. Typically occurs with change in position or when working. - Heart rate decreases to 90s when lying down or resting. - Shawanda denies chest pressure, dyspnea, or radiation of pain to neck or arm, nausea, SOB, lightheadedness with episodes. - Recent Holter monitor in January and EKG showed no arrhythmias. Echo this month was normal. - Upcoming tilt table test scheduled for April 19. Headaches: - Persistent headache and head pressure x15 days, relieved briefly by ER-administered migraine cocktail. - Associated with facial flushing and pallor. - Shawanda was recently prescribed propranolol 10 mg BID by neurology, not yet started. Intermittent Fevers: - Intermittent fevers up to 101.4 degreeF with last high temp 2-3 days ago. - Had hand foot and mouth 2 weeks ago and rash has resolved. - Shawanda denies cough, wheezing, dysuria, increased urinary frequency, emesis, diarrhea, or abdominal pain. - Recent viral infection with hand, foot, and mouth disease 14 days ago, contracted from children. Blood Pressure Fluctuations: - Shawanda noted fluctuations in blood pressure, with readings ranging from 99/xx to 141/104 mmHg. - Monitors blood pressure at home. Lifestyle: - Shawanda denies use of illicit drugs, including cocaine and methamphetamines. Past medical history, appointments, medications, allergies reviewed. [...] Maternal Grandmother Cervical Cancer Maternal Grandmother other (PR) Maternal Grandfather 49 other (depression and anxiety) Paternal Grandmother Bipolar disorder Paternal Grandmother Anxiety disorder Paternal Grandfather Cancer Other PATERNAL AND MATERNAL SIDES Diabetes Other PATERNAL AND MATERNAL SIDES other (CLOTTING DISORDER) Other PATERNAL SIDE - FACTOR 5 DISORDER Paternal great aunt Patient Allergies ALLERGIES Allergen Reactions Compazine [Prochlor* Mental Status Change Celexa [Citalopram] Other: See Comments Tunnel vision Lexapro [Escitalopr* Rash Current Medications Current Outpatient Medications on File Prior to Visit Medication Sig pantoprazole DR (PROTONIX) 20 mg tablet Take 1 tablet by mouth once daily. fluticasone (FLONASE) 50 mcg/actuation nasal spray propranolol (INDERAL) 10 mg tablet Take 1 tablet by mouth two times a day. (Patient not taking: Reported on 04/12/2025) eletriptan (RELPAX) 20 mg tablet Take 1 tablet by mouth as needed. at the onset of migraine headache. (Patient not taking: Reported on 04/12/2025) No current facility-administered medications on file prior to visit. Social History SOCIAL HISTORY[1] Review of Symptoms REVIEW OF SYSTEMS GENERAL: No weight loss, malaise or fevers RESPIRATORY: Negative for cough, hemoptysis, wheezing, COPD, dyspnea or shortness of breath CARDIOVASCULAR: See HPI GI: No nausea, vomiting, or diarrhea SKIN: Negative for lesions, rash, and itching EXAM: BP 118/80 Pulse 104 Temp 36.8 ?C (98.2 ?F) Resp 14 Ht 162.4 cm (5' 3.94) Wt 73.1 kg (161 lb 3.2 oz) LMP (LMP Unknown) SpO2 99% BMI 27.72 kg/m? General Appearance: Well appearing, alert, in no acute distress, well-hydrated, well nourished.. Skin: Skin color, texture, turgor normal, no suspicious rashes or lesions. Lungs: Lungs clear to auscultation. No wheezing, rhonchi, rales.. Heart: Negative findings: no murmurs, clicks, or gallops, Positive findings: tachycardia. Abdomen: Normal abdominal exam, Abdomen soft, non-tender. [...] Control Test Discontinued Asthma Action Plan Discontinued Data reviewed Latest Ref Rng 02/14/2025 02/18/2025 03/20/2025 03/28/2025 WBC 3.70 - 11.00 k/uL 5.98 RBC [...] Abs Lymph 1.00 - 4.00 k/uL 2.47 Callahan% % 3.8 Abs Callahan <0.87 k/uL 0.23 Eosin% % 1.3 Abs [...] 8 - 15 mmol/L 13 eGFR >=60 mL/min/1.73m? 124 Hemoglobin A1C 4.3 - 5.6 % 5.1 Estimated Average Glucose mg/dL 100 T3 79 - 165 ng/dL 109 Free T4 0.9 - 1.7 ng/dL 1.3 THYROID PEROXIDASE ANTIBODY <5.6 IU/mL <3.0 Vitamin B12 232 - 1,245 pg/mL 475 Folate >4.7 ng/mL >20.0 TSH 0.270 - 4.200 mIU/L 0.624 Legend: (L) Low 1. Palpitations (R00.2) 2. Migraine without aura, not intractable, without status migrainosus (G43.009) - Recent workup including EKG, 2-week Holter monitor (January), and echocardiogram (April 18) have not shown any underlying arrhythmia or structural heart disease. - Symptoms and clinical history are most consistent with POTS; tilt table test scheduled for April 19. - Start propranolol 10 mg PO BID as prescribed by neurology for migraine prophylaxis and heart rate control. - Discussed that propranolol may help with both migraine prevention and heart rate control; current dose is low, and may be increased if needed. - Advised to stay well hydrated (at least 64 oz water daily), avoid caffeine and stimulants, and change positions slowly. - Instructed to return to ER if heart rate remains >120 and does not slow down, or if chest pressure, severe dyspnea, diaphoresis, nausea, or other concerning symptoms develop. - Refer to cardiology for further evaluation. - Follow-up as needed; next scheduled visit April 29. 3. Hand, foot and mouth disease (B08.4) 4. Fever, unspecified fever cause (R50.9) - Recent viral infection (hand, foot, and mouth disease) likely explains recent low-grade fevers - No current evidence of ongoing infection; chest X-ray and urinalysis were normal on 04/07. normal exam today aside from mild tachcyardia. - Advised supportive care and monitoring; no additional testing or repeat blood work indicated at this time. Issac Fernández MD [1] Social History Tobacco Use Smoking status: Never Smokeless tobacco: Never Vaping Use Vaping status: Never Used Substance Use Topics Alcohol use: Never Drug use: Never PROGRESS Observed: 04/07/2025 10:03 AM Status: COMPLETED Source: [facility] ID: [id number] Author: ROHAN VILLALBA APRN.[employer] Service: ? Author Type: Nurse Practitioner Type: Progress Notes Filed: 04/07/2025 10:05 Note Text: [facility] Brink is a 19 year old female. Patient presents with: Headache: Pressure in head, AKERS pain in back of head and forehead, elevated heart rate x 9 days Was seen in ER 2 days ago HPI The patient is a 19-year-old female presenting for evaluation of tachycardia, dizziness, and ear pressure. Tachycardia: - Onset 6-9 days ago. - Heart rate reaching 160 bpm when standing; remains at 100 bpm when sitting. - Baseline resting heart rate is typically 60-70 bpm. - Monitoring heart rate using an Apple Watch and manual pulse checks. - Recent ER visit 2 days ago for evaluation; EKG performed. - Follow-up appointment scheduled for Tuesday. Dizziness: - Chronic issue, but current episode described as different and getting worse. - Associated with increased heart rate and ear pressure. Ear Pressure: - Significant pressure in the mastoid area and ears. - Vision feels off due to pressure. Review of Systems Constitutional: (+) malaise Head: (+) head pressure Eyes: (+) visual disturbance Ears/Nose/Mouth/Throat: (+) ear pressure Cardiovascular: (+) tachycardia Neurological: (+) dizziness Objective BP 108/90 Pulse 102 Temp 37.1 ?C (98.7 ?F) Resp 20 Wt 73.2 kg (161 lb 6 oz) LMP (LMP Unknown) SpO2 100% Yes BMI 27.75 kg/m? Physical Exam General: No acute distress. { 1. Dizziness (R42) 2. Tachycardia (R00.0) - Recent ER evaluation for tachycardia (HR up to 160s standing, 100s sitting) and dizziness; symptoms worsening since ER visit. - Advised immediate return to ER for further evaluation due to persistent tachycardia and worsening symptoms. - Advised to contact primary care provider to arrange an earlier follow-up and further testing. and Recording using eZelleron software for draft documentation of the visit was discussed with the patient/authorized sales representative printing paper; all questions welcomed and answered. Patient/authorized sales representative printing paper agreed to proceed MDM Procedures CNOV Observed: 04/07/2025 9:45 AM Status: COMPLETED Source: [facility] Office Visit (WOUCA) SHAWANDA BRINK ([id number]) 1 F Date Time Provider Department 04/07/25 9:45 AM ROHAN VILLALBA During your visit today, we recorded the following information about you: Temperature Pulse Respiration Blood pressure 98.7 degrees 102/minute 20/minute 108/90 Weight 73.2 kg Rohan Villalba APRN.[employer] 04/07/2025 10:05 AM Signed [facility] Subjective Shawanda Nuñez Luís is a 19 year old female. Patient presents with: Headache: Pressure in head, AKERS pain in back of head and forehead, elevated heart rate x 9 days Was seen in ER 2 days ago HPI The patient is a 19-year-old female presenting for evaluation of tachycardia, dizziness, and ear pressure. Tachycardia: - Onset 6-9 days ago. - Heart rate reaching 160 bpm when standing; remains at 100 bpm when sitting. - Baseline resting heart rate is typically 60-70 bpm. - Monitoring heart rate using an Apple Watch and manual pulse checks. - Recent ER visit 2 days ago for evaluation; EKG performed. - Follow-up appointment scheduled for Tuesday. Dizziness: - Chronic issue, but current episode described as different and getting worse. - Associated with increased heart rate and ear pressure. Ear Pressure: - Significant pressure in the mastoid area and ears. - Vision feels off due to pressure. Review of Systems Constitutional: (+) malaise Head: (+) head pressure Eyes: (+) visual disturbance Ears/Nose/Mouth/Throat: (+) ear pressure Cardiovascular: (+) tachycardia Neurological: (+) dizziness Objective BP 108/90 Pulse 102 Temp 37.1 ?C (98.7 ?F) Resp 20 Wt 73.2 kg (161 lb 6 oz) LMP (LMP Unknown) SpO2 100% Yes BMI 27.75 kg/m? Physical Exam General: No acute distress. { 1. Dizziness (R42) 2. Tachycardia (R00.0) - Recent ER evaluation for tachycardia (HR up to 160s standing, 100s sitting) and dizziness; symptoms worsening since ER visit. - Advised immediate return to ER for further evaluation due to persistent tachycardia and worsening symptoms. - Advised to contact primary care provider to arrange an earlier follow-up and further testing. and Recording using eZelleron software for draft documentation of the visit was discussed with the patient/authorized sales representative printing paper; all questions welcomed and answered. Patient/authorized sales representative printing paper agreed to proceed MDM Procedures Allergies As of Date: 04/07/2025 Noted Allergy Reaction CELEXA (CITALOPRAM) 03/21/2024 14 - Other: See Comments Comments: Tunnel vision LEXAPRO (ESCITALOPRAM) 03/21/2024 2 - Rash Date Reviewed: 04/07/2025 Reviewed by: Jacqueline Michele MA - Fully Assessed Reason for Visit: Headache [52] Cmt: Pressure in head, AKERS pain in back of head and forehead, elevated heart rate x 9 days Was seen in ER 2 days ago Primary Visit Diagnosis:Dizziness [R42] Other Visit Diagnosis:Tachycardia [R00.0] Prescriptions as of 04/07/2025 - amitriptyline (ELAVIL) 25 mg tablet Take 1 tablet by mouth daily at bedtime. - eletriptan (RELPAX) 20 mg tablet Take 1 tablet by mouth as needed. at the onset of migraine headache. - pantoprazole DR (PROTONIX) 20 mg tablet Take 1 tablet by mouth once daily. - fluticasone (FLONASE) 50 mcg/actuation nasal spray Problem List As Of Date 04/07/2025 Noted Resolved Acne vulgaris [L70.0] 08/18/2015 Mild persistent asthma without complication [J4*09/27/2016 Flat foot [M21.40] 07/20/2017 Influenza vaccine refused [Z28.21] 07/20/2017 Depression [F32.A] 08/04/2021 Generalized anxiety disorder [F41.1] 08/04/2021 Encounter Status:Closed by ROHAN VILLALBA on 04/07/25 PROGRESS Observed: 04/06/2025 3:58 PM Status: COMPLETED Source: [facility] HNO ID: [id number] Author: TIMMY KRUEGER PA-C Service: ? Author Type: Physician Equal Opportunity Counselor Type: Progress Notes Filed: 04/06/2025 16:03 Note Text: Telemedicine Visit - Distance Health Virtual Visit Note Patient seen on [employer] Video Visit platform. Location of patient: [place] Issac Fernández MD I have communicated my name and active licensure. The patient's identity and physical location were verified at the time of this visit. Either the patient or their legal sales representative printing paper has been informed of the risks and benefits of -- and alternatives to -- treatment through a remote evaluation and consents to proceed with the evaluation remotely. Subjective The patient is a 19-year-old female with a history of ear infections, seen today for ear pain, pressure, and drainage. Ear Pain, Pressure, and Drainage: - Onset 4 days ago. - Describes popping sensations in ears. - Notable drainage at night, particularly in the right ear. - Recent history of hand, foot, and mouth disease approximately one week ago. - Reports fever of 101.1 degreeF three days ago, 100 degreeF yesterday, and 99.8 degreeF today. - Taking Tylenol and ibuprofen to manage fever. - History of ear infections. Constitutional: (+) fever Head: (+) head pressure Ears/Nose/Mouth/Throat: (+) ear pain, (+) ear popping, (+) ear drainage Objective currently . General: Alert AND oriented, no acute distress Skin: Normal HEENT: Pupils equal, round. Assessment AND Plan 1. Right ear pain (H92.01) - Symptoms include otalgia, pressure, popping sensations, and nocturnal otorrhea. Recent history of viral illness with fever up to 101.1 degreeF. Differential diagnosis includes otitis media or externa, but unable to confirm without otoscopic examination. Advised in-person evaluation for otoscopic examination to assess tympanic membrane and ear canal. Discussed limitations of virtual visits for diagnosing ear infections without visual inspection. Recording using eZelleron software for draft documentation of the visit was discussed with the patient/authorized sales representative printing paper; all questions welcomed and answered. Patient/authorized sales representative printing paper agreed to proceed IF YOUR SYMPTOMS PERSIST OR WORSENING IN THE NEXT 1-2 DAYS THEN PLEASE FOLLOW UP WITH YOUR PCP - Red flags discussed for need for in person care - All questions answered Timmy Krueger PA-C History and Record Review External record(s) reviewed: prior outpatient record. Findings from review of outpatient records: hx POTS CODING: PROGRESS Observed: 04/02/2025 8:29 AM Status: COMPLETED Source: [facility] HNO ID: [id number] Author: MAXINE ELLIS APRN.[employer] Service: ? Author Type: Nurse Practitioner Type: Progress Notes Filed: 04/02/2025 08:29 Note Text: Patient did not come in for her follow up appointment with the provider. CNOV Observed: 04/02/2025 8:00 AM Status: COMPLETED Source: [facility] Office Visit (PSWSTR) SHAWANDA BRINK ([id number]) 1 F Date Time Provider Department 04/02/25 8:00 AM MAXINE ELLIS PSWSTR During your visit today, we recorded the following information about you: Maxine Ellis, SERVICES PROGRAM MANAGER.[facility] 04/02/2025 8:29 AM Signed Patient did not come in for her follow up appointment with the provider. Referring Provider: MAXINE ELLIS [[id number]] Allergies As of Date: 04/02/2025 Noted Allergy [...] Encounter Status:Closed by MAXINE ELLIS on 04/02/25 VIT B12 SERPL-MCNC Collected: 03/28/2025 2:13 PM Sta tus: F Source: [facility] Comment: Specimen Type : BLOOD SPECIMEN Ordering Facility: [facility] Address: [address] [place] [address] TYPE CODE TESTS RESULT OUT OF RANGE REFERENCE UNITS LAB 2132-9(LOINC) Vit B12 SerPl-mCnc 397 750-3108 pg/mL Performed By: #### 2284-8, 3 016-, 2132-03 #### [facility] CLIA [id number] [address] [place] [address] [facility] [place] [facility] FOLATE SERPL-MCNC Collected: 2:13 PM Status: F Source: [facility] Comment: Specimen Type : BLOOD SPECIMEN Ordering Facility: [facility] Address: [address] [place] [address] TYPE CODE TESTS RESULT OUT OF RANGE REFERENCE UNITS LAB 2284-8(LOINC) Folate SerPl-mCnc >20.0 >4.7 ng/mL Result Comment: A result of > 20 ng/mL is not necessarily indicative of a pathologic or treatable condition: it reflects a limitation of the test methodology. Assay reference range: 4.8 to 24.2 ng/mL. Suitable for detection of folate deficiency. Reference: Folate III (Folate III) [package insert V 1.0 [place]anian]. [facility], [place], [place]: May 2015. Performed By: #### 2284-8, 3 016-, 2132-03 #### [facility] CLIA [id number] [address] [place] [address] STATES [place] LO TSH SERPL-ACNC Collected: 2:13 PM Status: F Source: [facility] Comment: Specimen Type : BLOOD SPECIMEN Ordering Facility: [facility] Address: [address] [place] [address] TYPE CODE TESTS RESULT OUT OF RANGE REFERENCE UNITS LAB 3016-3(LOINC) TSH SerPl-aCnc 0.624 0.270-4.200 mIU/L Result Comment: If the patie nt is , TSH reference range varies by gestational period: First Trimester (weeks 9-12): 0.180-2.990 mIU/L Second Trimester: 0.110-3.980 mIU/L Third Trimester: 0.480-4.710 mIU/L Khoa Hernandez et al. A Practical Approach for the Verifications and Determination of Site- and Trimester-Specific Reference Intervals for Thyroid Function tests in . Thyroid, 2019:29:3:412-420. Macario Choe, et al. 2017 Guidelines of the [place] Thyroid Association for the Diagnosis and Management of Thyroid Disease during and the . Thyroid, 2017:27:3:315-389. Performed By: #### 2284-8, 3 016-3, 2132-9 #### [facility] CLIA [id number] [address] [place] [address] CNOV Observed: 03/28/2025 10:45 AM Status: COMPLETED Source: [facility] Office Visit (WOPRAVIN) MANDO BRINKCIE Sav[place] ([id number]) 1 F Date Time Provider Department 03/28/25 10:45 AM BHARAT MOSHER During your visit today, we recorded the following information about you: Temperature Pulse Respiration Blood pressure 98 degrees 75/minute 18/minute 122/96 Weight 72.4 kg Bharat Mosher MD 03/28/2025 11:10 AM Signed [facility] Subjective Shawandamuna Brink is a 19 year old female. [...] her PCP last week. Her children have gmlh-wobd-mrt-mouth disease. 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 She has taken Advil sinus for symptoms [...] The patient was other (comment) (referred to [facility] ED). Procedures Allergies As of Date: 03/28/2025 [...] nasal spray Problem List As Of Date 03/28/2025 Noted Resolved Acne vulgaris [L70.0] 08/18/2015 Mild persistent asthma without complication [J4*09/27/2016 Flat foot [M21.40] 07/20/2017 Influenza vaccine refused [Z28.21] 07/20/2017 Depression [F32.A] 08/04/2021 Generalized anxiety disorder [F41.1] 08/04/2021 LOS History for Encounter Level of Service: OFFICE/OUTPATIENT ESTABLISHED [facility] 30 MIN[06822] Date AND Time: 03-28-2025 11:09 AM Recorded by User: BHARAT MOSHER Encounter Status:Closed by BHARAT MOSHER on 03/28/25 PROGRESS Observed: 03/28/2025 10:43 AM Status: COMPLETED Source: [facility] HNO ID: [id number] Author: BHARAT MOSHER MD Service: ? Author [...] her PCP last week. Her children have lifn-bkid-bvq-mouth disease. 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 She has taken Advil sinus for symptoms [...] The patient was other (comment) (referred to [facility] ED). Procedures CNPN Observed: 03/27/2025 12:00 AM Status: COMPLETED Source: [facility] Telephone (PSYLME) SHAWANDA BRINK ([id number]) 1 F Date Time Provider Department 03/27/25 TOSHIA HESS PSJANESME During your visit today, we recorded the following information about you: Toshia Hess LPCC 03/27/2025 2:29 PM Signed Behavioral Health Social Work Progress Note Patient identified for [facility] from: PCP [facility] encounter type: Telephone Encounter Attempts to Outreach: 4 attempts Referral made: Psychology - Internal Psychology-Internal referral type: Therapy Final Disposition: Care established with Patient Discharged?: No therapist returned patient's call, left [facility] for patient to return call to scheduled therapy appointment. MARGARETTE Henderson-S March 27, 2025 Allergies As of Date: 03/27/2025 Noted Allergy Reaction CELEXA (CITALOPRAM) 03/21/2024 14 - Other: See Comments Comments: Tunnel vision LEXAPRO (ESCITALOPRAM) 03/21/2024 2 - Rash Date Reviewed: 03/22/2025 Reviewed by: Nasima Guthrie MA - Fully Assessed Reason for Visit: [...] Encounter Status:Closed by TOSHIA HESS on 03/27/25 PROGRESS Observed: 03/22/2025 9:17 AM Status: COMPLETED Source: [facility] ID: [id number] Author: ISSAC FERNÁNDEZ MD Service: ? Author [...] follow up after echo results. Recording using eZelleron software for draft documentation of the visit was discussed with the patient/authorized sales representative printing paper; all questions welcomed and answered. Patient/authorized sales representative printing paper agreed to proceed HPI Shawanda Brink is [...] Maternal Grandmother Cervical Cancer Maternal Grandmother other (PR) Maternal Grandfather 49 other (depression and anxiety) [...] Topics Alcohol use: Never Drug use: Never CNOV Observed: 03/22/2025 9:00 AM Status: COMPLETED Source: [facility] Office Visit (FAMPWS) SHAWANDA BRINK ([id number]) 1 F Date Time Provider Department 03/22/25 9:00 AM ISSAC [facility]ERN[facility]DEZ [facility] During your visit today, we recorded the [...] follow up after echo results. Recording using eZelleron software for draft documentation of the visit was discussed with the patient/authorized sales representative printing paper; all questions welcomed and answered. Patient/authorized sales representative printing paper agreed to proceed HPI Shawanda Brink is [...] Maternal Grandmother Cervical Cancer Maternal Grandmother other (PR) Maternal Grandfather 49 other (depression and anxiety) [...] Topics Alcohol use: Never Drug use: Never Issac Fernández MD 03/22/2025 9:35 AM Signed - Monitor the varicose vein behind your [...] Access your after-visit summary and paperwork in SwitchNote at your convenience. - Keep your routine follow-up appointment in April as scheduled. Allergies As of Date: 03/22/2025 Noted Allergy Reaction CELEXA (CITALOPRAM) 03/21/2024 14 - Other: See Comments Comments: Tunnel vision LEXAPRO (ESCITALOPRAM) 03/21/2024 2 - Rash Date Reviewed: 03/22/2025 Reviewed by: Nasima Guthrie MA - Fully Assessed Reason for Visit: Lump [03198] Cmt: Noticed lump on inner left backside of right knee X 2-3 ago. It's elongated in shape and has gotten bigger since first noticing. Denies pain, redness or warmth to touch. Complains of tightness around her right alcanatra. Refers to feeling like someone is squeezing her leg. Shortness of Breath [227] Cmt: Ongoing. Blood Pressure [15] Cmt: Admits to low blood pressure. Was told to follow up after echo results. Primary Visit Diagnosis:Asymptomatic varicose veins of right lower extremity [I83.91] Other Visit Diagnosis:Hypotension, unspecified hypotension type [I95.9] Prescriptions as of 03/22/2025 - amitriptyline (ELAVIL) 25 mg tablet Take 1 tablet by mouth daily at bedtime. - eletriptan (RELPAX) 20 mg tablet Take 1 tablet by mouth as needed. at the onset of migraine headache. - pantoprazole DR (PROTONIX) 20 mg tablet Take 1 tablet by mouth once daily. - fluticasone (FLONASE) 50 mcg/actuation nasal spray Problem List As Of Date 03/22/2025 Noted Resolved Acne vulgaris [L70.0] 08/18/2015 Mild persistent asthma without complication [J4*09/27/2016 Flat foot [M21.40] 07/20/2017 Influenza vaccine refused [Z28.21] 07/20/2017 Depression [F32.A] 08/04/2021 Generalized anxiety disorder [F41.1] 08/04/2021 Other instructions from your clinician: - Monitor the varicose vein behind your [...] Access your after-visit summary and paperwork in SwitchNote at your convenience. - Keep your routine follow-up appointment in April as scheduled. Disposition: Return if symptoms worsen or fail to improve. Follow-up and Disposition History for Encounter Date Provider Department Center 03/22/2025 [id number]-CLCNIGHDIAZ FERNÁNDEZ*FAMWESLY [place] [facility] Encounter Status:Closed by ISSAC FERNÁNDEZ on 03/22/25 PROGRESS Observed: 03/21/2025 11:07 AM Status: COMPLETED Source: [facility] ID: [id number] Author: MAXINE ELLIS APRN.[facility] Service: ? Author Type: Nurse Practitioner [...] visit. Either the patient or their legal sales representative printing paper has been informed of the risks and benefits of -- and alternatives to -- treatment through a remote evaluation and consents to proceed with the evaluation remotely. Recording using eZelleron software for draft documentation of the visit was discussed with the patient/authorized sales representative printing paper; all questions welcomed and answered. Patient/authorized sales representative printing paper agreed to proceed CC: Outpatient follow-up and [...] since August. She frequently uses [employer] and [employer] to research symptoms, which exacerbates her anxiety. [...] process of weaning. 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 She reports [...] scales, Labs, and Electronic medical record ASSESSMENT AND PLAN: 1. 1. Mixed obsessional thoughts and [...] medical appointments); recommended use of external accountability (fiance, trusted colleagues) to support behavioral changes. 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 Increase dose as tolerated. - Order monitoring lab work once patient is on a stable dose. Medical Decision Making: Problems: High: Chronic illness with severe change Data: Unique test result(s) reviewed: 3+ Risk: Moderate: Moderate risk from testing/treatment and Drug management Medical Decision Making Level: 4 - Moderate ADD ON PSYCHOTHERAPY CODE : No SIGNATURE: Maxine Ellis APRN.[employer] PATIENT NAME: Shawanda Brink DATE: March 21, 2025 TIME: 11:07 AM DEPRECATED HGB A1C BLD Collected: 03/20 12:27 PM Status: F Source: [facility] Order Comment: Specimen Type : BLOOD SPECIMEN Ordering Facility: [facility] Address: [address] [place] [address] TYPE CODE TESTS RESULT OUT OF RANGE REFERENCE UNITS LAB 4548-4(LOINC) HbA1c MFr Bld 5.1 4.3-5.6 % Result Comment: [place] [employer] bet[employer] guidelines indicate that patients with HgbA1c in the range 5.7-6.4% are at increased risk for development of diabetes, and intervention by lifestyle modification may be beneficial. HgbA1c greater or equal to 6.5% is considered diagnostic of diabetes. LAB 18314-7(LOINC) Est. average glucose Bld gHb Est-mCnc 100 mg/dL Result Comment: eAG: (Estima charlie average glucose) is a calculated value from HgbA1c and is sales representative printing paper of the average blood glucose level in the last 2-3 month period. Performed By: #### [id number] # ### [facility] CLIA [id number] [address] [place], [place] [address] [address] [place] ECHO Observed: 03/19/2025 3:32 PM Status: F Source: [facility] Echocardiography Report: Tra nsthoracic Echo [facility] Date of service: 03/19/2025 3:32:13 PM ANALYSIS TECHNICIAN Ordering physician: ISSAC FERNÁNDEZ Exam indication: Palpitations Technologist: Antoinette Vicnete [facility] Interpreting physician: Priyank Curiel MD PATIENT: Name: [...] in size (RA area = 10.1 cm ) . Inferior Vena Cava: The inferior vena cava [...] * * Final * * * CC [email or web address] Medical Image : [id number] [facility]ITAL[facility] Observed: 03/16/2025 12:00 AM Status: COMPLETED Source: [facility] Telephone ([employer]) SHAWANDA BRINK ([id number]) 1 F Date Time Provider Department 03/16/25 ISSAC [facility]ERN[facility]Z [facility] During your visit today, we recorded the [...] as dicussed during call. Bela Martinez RN Podlogar, LAVELL Martin.DRAFTER CONSTRUCTION 03/19/2025 7:14 AM Signed Reviewed. Veronica PodLAVELL mendoza.DRAFTER CONSTRUCTION Allergies As of Date: 03/16/2025 Noted Allergy [...] Encounter Status:Closed by BELA MARTINEZ on 03/19/25 PROGRESS Observed: 03/14/2025 8:12 AM Status: COMPLETED Source: [facility] HNO ID: [id number] Author: CITLALI CEJA PA-C Service: ? Author Type: Physician Equal Opportunity Counselor Type: Progress Notes Filed: 03/14/2025 09:13 Note Text: Neurology Outpatient Clinic Date: March 14, 2025 Patient Name: Shawanda Brink Referring physician: Issac Fernández [address] [facility] [address] Consult requested for headache by Dr. Fernández. Recommendations will be communicated via shared medical record or US mail. Primary physician: Issac Fernández [address] [place] [address] Reason for Evaluation: Headaches Subjective HPI Shawanda [...] of attacks: multiple days Severity of headaches? -02/24 Onset to Peak: gradual Location: Right sided. Aura: 5-6 times Prodrome:uig2tht, kaleidsecope lasting 30-45 minuhtes . Accompanying symptoms: [...] Maternal Grandmother Cervical Cancer Maternal Grandmother other (PR) Maternal Grandfather 49 other (depression and anxiety) Paternal Grandmother Bipolar disorder Paternal Grandmother Anxiety disorder Paternal Grandfather Cancer Other PATERNAL AND MATERNAL SIDES Diabetes Other PATERNAL AND MATERNAL SIDES other (CLOTTING DISORDER) Other PATERNAL SIDE - FACTOR 5 DISORDER Paternal great aunt Also includes: . Social History:SOCIAL HISTORY[1] Works in [employer]. Objective 03/14/25 0811 03/14/25 0820 03/14/25 0821 [...] (Knee Flex) 5/5 5/5 Quads (Knee Ext) 5/5 5/5 Gastroc (Plantflx) 5/5 5/5 TibAnt (Dorsiflx) 5/5 5/5 FlxHLong (Toe Flex) 5/5 5/5 ExtHLong (Toe Ext) 5/5 5/5 Sensory Examination Sensation is intact to light touch. Reflexes Right Left Bicep 2/4 2/4 BrRad 2/4 2/4 Knee 2/4 2/4 Ankle 2/4 2/4 Dent Response Negative Negative Coordination: finger-to- nose-finger intact bilaterally and xbqi-vf-oisk intact bilaterally. Gait: Patient's gait is normal DATA REVIEWED Actual films/image/tracing reviewed and summarized as follows: MRI brain Old records reviewed and summarized as follows: Primary care Assessment/Plan Assessment AND Plan: Shawanda Brink is a 19 year [...] which included preparing to see the patient, ivtg-bw-xcfh patient care, completing clinical documentation, obtaining and/or reviewing separately obtained history, performing a medically appropriate examination, counseling and educating the patient/family/caregiver, and ordering medications, tests, or procedures. Citlali Ceja PA-C [facility] Neurology This document has been created with the use of voice recognition technology. It may contain inaccuracies: (e.g. misspellings, inaccurate syntax or word sense) that have escaped review. [1] Social History Tobacco Use Smoking status: Never Smokeless tobacco: Never Vaping Use Vaping status: Never Used Substance Use Topics Alcohol use: Never Drug use: Never CNOV Observed: 03/14/2025 8:00 AM Status: COMPLETED Source: [facility] Office Visit ([facility]) SHAWANDA BRINK ([id number]) 1 F Date Time Provider Department 03/14/25 8:00 AM CITLALI CEJA [facility] During your visit today, we recorded the following information about you: Weight Height 73.1 kg 1.624 Citlali Arrington PA-C 03/14/2025 9:13 AM Signed Neurology Outpatient Clinic Date: March 14, 2025 Patient Name: Shawanda Brink Referring physician: Issac Fernández [address] [facility] [address] Consult requested for headache by Dr. Fernández. Recommendations will be communicated via shared medical record or US mail. Primary physician: Issac Fernández [address] [place] [address] Reason for Evaluation: Headaches Subjective HPI Shawanda [...] gradual Location: Right sided. Aura: 5-6 times Prodrome:edu7dfp, kaleidsecope lasting 30-45 minuhtes . Accompanying symptoms: [...] Maternal Grandmother Cervical Cancer Maternal Grandmother other (PR) Maternal Grandfather 49 other (depression and anxiety) Paternal Grandmother Bipolar disorder Paternal Grandmother Anxiety disorder Paternal Grandfather Cancer Other PATERNAL AND MATERNAL SIDES Diabetes Other PATERNAL AND MATERNAL SIDES other (CLOTTING DISORDER) Other PATERNAL SIDE - FACTOR 5 DISORDER Paternal great aunt Also includes: . 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 Objective 03/14/25 0811 03/14/25 0820 03/14/25 0821 [...] (Knee Flex) 5/5 5/5 Quads (Knee Ext) 5/5 5/5 Gastroc (Plantflx) 5/5 5/5 TibAnt (Dorsiflx) 5/5 5/5 FlxHLong (Toe Flex) 5/5 5/5 ExtHLong (Toe Ext) 5/5 5/5 Sensory Examination Sensation is intact to light touch. Reflexes Right Left Bicep 2/4 2/4 BrRad 2/4 2/4 Knee 2/4 2/4 Ankle 2/4 2/4 Dent Response Negative Negative Coordination: finger-to- nose-finger intact bilaterally and equl-wc-spqg intact bilaterally. Gait: Patient's gait is normal DATA REVIEWED Actual films/image/tracing reviewed and summarized as follows: MRI brain Old records reviewed and summarized as follows: Primary care Assessment/Plan Assessment AND Plan: Shawanda Brink is a 19 year [...] which included preparing to see the patient, yogq-ha-wbod patient care, completing clinical documentation, obtaining and/or reviewing separately obtained history, performing a medically appropriate examination, counseling and educating the patient/family/caregiver, and ordering medications, tests, or procedures. Citlali Ceja PA-C [facility] Neurology This document has been created with the use of voice recognition technology. It may contain inaccuracies: (e.g. misspellings, inaccurate syntax or word sense) that have escaped review. [1] Social History Tobacco Use Smoking status: Never Smokeless tobacco: Never Vaping Use Vaping status: Never Used Substance Use Topics Alcohol use: Never Drug use: Never Citlali Ceja PA-C 03/14/2025 8:49 AM Signed Start elavil daily for prevention of migraine [...] tips for improved daily living with POTS. http://www.[facility].org/pots Orthostatic Workout There are videos /playlist/podcast to viewed and helped for exercises and wellness for POTS and Orthostatics Instructions:https://www.[employer].com/channel/JJ8HPoIOf4UDZAWHkRcoHvCF In your search bar in the internet [...] support people Also follow us along on [employer] account POTSWILSON Also besides the exercise are some nneka mediation videos . Click and watch. Utilize when your adrenaline is active. May even play music to go along. Play the video as often you want to help as an additional tool to reset the adrenaline https://www.Insyde Softwareube.com/watch?v=iRLl0wGjRB9 https://www.Insyde Softwareube.com/watch?v=d6qAjwG-5nFEKUshhjozt=lanlq.be https://www.youtube.com/watch?v=A9aC2yVmK69 Headache Preventive Treatment: Please keep in mind [...] Feverfew: Feverfew is a common garden herb [place] to [place] and popular in [place] [...] pepperoni, Pickled villanueva Pods of broad chacon (Tanzanian beans, Cay[place] Islander pea pods, Ethiopian (sohail) beans, dubois and navy beans Ripe avocado, ripe banana Yeast extracts or active yeast preparations such as Rios's or Barbara's (commercial bakes goods are permitted) Tomato based foods, pizza (lasagna, etc.) MSG (monosodium glutamate) is disguised as many things; look for these common aliases: Monopotassium glutamate Autolysed yeast Hydrolysed protein Sodium caseinate ?flavorings? ?all natural preservatives Nutrasweet Avoid all other foods that convincingly provoke headaches. Headache Prevention Strategies: 1. Maintain a headache diary; learn to identify and avoid triggers. Common triggers include: Emotional triggers: Emotional/Upset family or friends Emotional/Upset occupation Business reversal/success Anticipation anxiety Crisis-serious Post-crisis periodNew job/position Physical triggers: Vacation Day Weekend Strenuous Exercise High Altitude Location New Move Day Physical Illness Oversleep/Not enough sleep Weather [...] much light. These can be obtained at [employer] or [employer]: see list above. 2. Limit use of acute treatments (xqgz-pud-dlqfmyg medications, triptans, etc.) to no more than [...] and quiet environment. Relax and reduce stress. Dkqespw6Zwyfa is a free pravin that can instruct you on some simple relaxtion and breathing techniques. Http://[employer] is a free website that provides teaching videos on relaxation. Also, there are many apps that can be downloaded for ?mindful? relaxation. An pravin called YOGA NIDRA will [...] and will be handling your phone calls, [employer] Solution[employer] Messages and inquiries, if any. Unless explicitly told otherwise at the time of your office visit, your study results and ensuing treatment plans will be released via SwitchNote and discussed during your follow-up appointment. MyChart: Please ask the schedulers to give you an activation code. The main way of communication is by [employer] rather than phone lines, so if you have not signed up, please do so. [employer] is also the way that you can review your labs and testing. We are not able to contact everyone to tell them results are normal. If you do not hear back from us regarding testing you have had, it should be considered normal or within normal range. If you have any questions about the results, you are free to message us. SwitchNote is meant for simple questions regarding medications, possible side effects, or other simple straight forward questions in limited sentences, rather than multiple paragraphs of discussion. SwitchNote is not meant for, or efficient for [...] do not comment on most testing on [employer] in a message or commentary unless there [...] request to assist you with this process. Referring Provider: ISSAC FERNÁNDEZ [[id number]] Allergies As of Date: 03/14/2025 Noted Allergy Reaction CELEXA (CITALOPRAM) 03/21/2024 14 - Other: See Comments Comments: Tunnel vision LEXAPRO (ESCITALOPRAM) 03/21/2024 2 - Rash Date Reviewed: 03/14/2025 Reviewed by: Citlali Ceja PA-C - Fully Assessed Reason for Visit: Chronic Migraine [3851] Cmt: Migraines with aura. Sharp pains in the back of head and neck. Dizziness [36] Cmt: Feels dizzy 07/02 Primary Visit Diagnosis:Intractable migraine with aura without status migrainosus [G43.119] Other Visit Diagnosis:Positional lightheadedness [R42] Order(s):eletriptan (RELPAX) 20 mg tabletTake 1 tablet by mouth as needed. at the onset of migraine headache.Disp: 10 tabletRfl: 2 TILT TABLE EVALUATION [07224ZYC] Order #: [id number]: 1 Prescriptions as of 03/14/2025 - eletriptan (RELPAX) 20 mg tablet Take [...] at bedtime. Problem List As Of Date 03/14/2025 Noted Resolved Acne vulgaris [L70.0] 08/18/2015 Mild persistent asthma without complication [J4*09/27/2016 Flat foot [M21.40] 07/20/2017 Influenza vaccine refused [Z28.21] 07/20/2017 Depression [F32.A] 08/04/2021 Generalized anxiety disorder [F41.1] 08/04/2021 Other instructions from your clinician: Start elavil daily for prevention of migraine [...] tips for improved daily living with POTS. http://www.[facility].org/pots Orthostatic Workout There are videos /playlist/podcast to viewed and helped for exercises and wellness for POTS and Orthostatics Instructions:https://www.youCool Containersube.com/channel/OX0PJnQAq9DLASTUxYzfVgNO In your search bar in the internet [...] support people Also follow us along on [employer] account POTSWILSON Also besides the exercise are some nneka mediation videos . Click and watch. Utilize when your adrenaline is active. May even play music to go along. Play the video as often you want to help as an additional tool to reset the adrenaline https://www.youCool Containersube.com/watch?v=hKHg8pSyWD6 https://www.youCool Containersube.com/watch?v=a2cYrhE-1kZFNHmpdeqet=esimn.be https://www.youCool Containersube.com/watch?v=F2fX6nHgH42 Headache Preventive Treatment: Please keep in mind [...] Feverfew: Feverfew is a common garden herb [place] to [place] and popular in [place] [...] pepperoni, Pickled villanueva Pods of broad chacon (Tanzanian beans, Cay[place] Islander pea pods, Ethiopian (sohail) beans, dubois and navy beans Ripe avocado, ripe banana Yeast extracts or active yeast preparations such as Rios's or Barbara's (commercial bakes goods are permitted) Tomato based foods, pizza (lasagna, etc.) MSG (monosodium glutamate) is disguised as many things; look for these common aliases: Monopotassium glutamate Autolysed yeast Hydrolysed protein Sodium caseinate ?flavorings? ?all natural preservatives Nutrasweet Avoid all other foods that convincingly provoke headaches. Headache Prevention Strategies: 1. Maintain a headache diary; learn to identify and avoid triggers. Common triggers include: Emotional triggers: Emotional/Upset family or friends Emotional/Upset occupation Business reversal/success Anticipation anxiety Crisis-serious Post-crisis periodNew job/position Physical triggers: Vacation Day Weekend Strenuous Exercise High Altitude Location New Move Day Physical Illness Oversleep/Not enough sleep Weather [...] much light. These can be obtained at [employer] Engine or [employer]: see list above. 2. Limit use of acute treatments (ddav-cni-zuwckyt medications, triptans, etc.) to no more than [...] and quiet environment. Relax and reduce stress. Hwbyzqs7Djtkm is a free pravin that can instruct you on some simple relaxtion and breathing techniques. Http://Na[employer] is a free website that provides teaching videos on relaxation. Also, there are many apps that can be downloaded for ?mindful? relaxation. An pravin called YOGA NIDRA will [...] and will be handling your phone calls, MyChart Messages and inquiries, if any. Unless explicitly told otherwise at the time of your office visit, your study results and ensuing treatment plans will be released via SwitchNote and discussed during your follow-up appointment. [employer]: Please ask the schedulers to give you an activation code. The main way of communication is by [employer] rather than phone lines, so if you have not signed up, please do so. [employer] is also the way that you can review your labs and testing. We are not able to contact everyone to tell them results are normal. If you do not hear back from us regarding testing you have had, it should be considered normal or within normal range. If you have any questions about the results, you are free to message us. [employer] is meant for simple questions regarding medications, possible side effects, or other simple straight forward questions in limited sentences, rather than multiple paragraphs of discussion. SwitchNote is not meant for, or efficient for [...] do not comment on most testing on Geno[employer] in a message or commentary unless there [...] request to assist you with this process. Prescriptions ordered this encounter Disp Refills Start End ELETRIPTAN 20 MG TABLET 10 t* 2 03/14/2025 Route: PO Sig: Take 1 tablet by mouth as needed. at the onset of migraine headache. Medications Discontinued During This Encounter Prescriptions - SUMAtriptan (IMITREX) 50 mg tablet (Discontinued) Take 1 tablet by mouth as needed for migraine headache (see administration instructions). May repeat dose after 2 hours if needed. Maximum daily dose is 200 mg per day. Disposition: Return in about 3 months (around 06/14/2025). Follow-up and Disposition History for Encounter Date Provider Department Center 03/14/2025 [id number], MELANIE [facility] Encounter Status:Closed by CITLALI CEJA on 03/14/25 MARS Observed: 03/08/2025 12:00 AM Status: COMPLETED Source: [facility] Telephone ([facility]) SHAWANDA BRINK ([id number]) 1 F Date Time Provider Department 03/08/25 [facility] During your visit today, we recorded the [...] await provider's advise. SHERLY Quezada Nishi J, SERVICES PROGRAM MANAGER.DRAFTER CONSTRUCTION 03/08/2025 10:17 AM Signed Please tell the [...] Encounter Status:Closed by QUETA MCCARTY on 03/08/25 MARS Observed: 03/08/2025 12:00 AM Status: COMPLETED Source: [facility] SHAWANDA BRINK ([id number]) 1 F Date Time Provider Department 03/08/25 [...] Fully Assessed Reason for Visit: Patient Question [7727] Primary Visit Diagnosis:Hx of gestational diabetes mellitus, not currently [Z86.32] Order(s):HEMOGLOBIN A1C [QRXLM5M] Order #: [id number] FUTURE Prescriptions as of 03/11/2025 - FLUoxetine [...] Encounter Status:Closed by MARK FAN on 03/11/25 CNOV Observed: 03/05/2025 11:00 AM Status: COMPLETED Source: [facility] SHAWANDA BRINK ([id number]) 1 F Date Time Provider Department 03/05/25 11:00 AM VERONICA MUSE During your visit today, we recorded the following information about you: Pulse Respiration Blood pressure Weight 82/minute 18/minute 106/74 74.4 kg Height 1.624 m Veronica Muse APRN.CNP 03/05/2025 11:27 AM Signed 03/05/2025 Patient presents with: Physical Recording using eZelleron software for draft documentation of the visit was discussed with the patient/authorized sales representative printing paper; all questions welcomed and answered. 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 124 T3 79 - 165 ng/dL 109 [...] Continue amitriptyline. - follow-up as needed Veronica GuerralogLAVELL berger.DRAFTER CONSTRUCTION Prescription instructions reviewed with patient as applicable. [...] Topics Alcohol use: Never Drug use: Never Allergies As of Date: 03/05/2025 Noted Allergy Reaction CELEXA (CITALOPRAM) 03/21/2024 14 - Other: See Comments Comments: Tunnel vision LEXAPRO (ESCITALOPRAM) 03/21/2024 2 - Rash Date Reviewed: 03/05/2025 Reviewed by: Yohana Bird LPN - Fully Assessed Reason for Visit: Physical [83] Primary Visit Diagnosis:Annual physical exam [Z00.00] Other Visit Diagnoses:Screening-pulmonary TB [Z11.1] Gastroesophageal reflux disease, unspecified whether esophagitis present [K21.9] Migraine without aura, not intractable, without status migrainosus [G43.009] Anxiety disorder, unspecified type [F41.9] Order(s):BLOOD TB SCREEN [SQINFTBP] Order #: [id number] FUTURE Prescriptions as of 03/05/2025 - pantoprazole DR (PROTONIX) 20 mg tablet [...] once daily. Problem List As Of Date 03/05/2025 Noted Resolved Acne vulgaris [L70.0] 08/18/2015 Mild persistent asthma without complication [J4*09/27/2016 Flat foot [M21.40] 07/20/2017 Influenza vaccine refused [Z28.21] 07/20/2017 Depression [F32.A] 08/04/2021 Generalized anxiety disorder [F41.1] 08/04/2021 Medications Discontinued During This Encounter Prescriptions - meclizine (ANTIVERT) 25 mg tab (Discontinued) Encounter Status:Closed by VERONICA MUSE on 03/05/25 PROGRESS Observed: 03/05/2025 10:56 AM Status: COMPLETED Source: [facility] ID: [id number] Author: VERONICA MUSE APRN.[facility] Service: ? Author Type: Nurse Practitioner Type: Progress Notes Filed: 03/05/2025 11:27 Note Text: 03/05/2025 Patient presents with: Physical Recording using eZelleron software for draft documentation of the visit was discussed with the patient/authorized sales representative printing paper; all questions welcomed and answered. 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 124 T3 79 - 165 ng/dL 109 [...] amitriptyline. - follow-up as needed Veronica Muse APRN.DRAFTER CONSTRUCTION Prescription instructions reviewed with patient as applicable. [...] Topics Alcohol use: Never Drug use: Never PROGRESS Observed: 03/03/2025 3:08 PM Status: COMPLETED Source: [facility] HNO ID: [id number] Author: ROHAN VILLALBA APRN.SUSANA Service: ? Author Type: Nurse Practitioner Type: Progress Notes Filed: 03/03/2025 15:08 Note Text: [facility] Tavera Shawanda Brink is a 19 year [...] agreeable to care plan. and Recording using eZelleron software for draft documentation of the visit was discussed with the patient/authorized sales representative printing paper; all questions welcomed and answered. Patient/authorized sales representative printing paper agreed to proceed MDM Procedures CNOV Observed: 03/03/2025 2:30 PM Status: COMPLETED Source: [facility] Office Visit ([facility]) DEPOOJASHAWANDA ([id number]) 1 F Date Time Provider Department 03/03/25 2:30 PM ROHAN VILLALBA During your visit today, we recorded the following information about you: Temperature Pulse Respiration Blood pressure 97.6 degrees 76/minute 20/minute 120/78 Weight Last Period 74 kg 11/04/21 Rohan Villalba APRN.DRAFTER CONSTRUCTION 03/03/2025 3:08 PM Signed URGENT CARE [facility] Subjective Shawanda Nuñez Luís is a 19 year old female. Patient [...] agreeable to care plan. and Recording using eZelleron software for draft documentation of the visit was discussed with the patient/authorized sales representative printing paper; all questions welcomed and answered. Patient/authorized sales representative printing paper agreed to proceed MDM Procedures Allergies As [...] Diagnosis:Sore throat [J02.9] Order(s):STREP A MOLECULAR (POC) [1009394] Order #: [id number]. #:[id number] CONSULT TO ENT [9008] Order #: [id number]: [address] (PROTONIX) 20 mg [...] Encounter Status:Closed by ROHAN VILLALBA on 03/03/25 MARS Observed: 02/22/2025 12:00 AM Status: COMPLETED Source: [facility] Telephone ([facility]) SHAWANDA BRINK ([id number]) 1 F Date Time Provider Department 02/22/25 CITLALI CEJA During your visit today, we recorded the following information about you: Tessy Chow LPN 02/22/2025 1:21 PM Signed Patient was unaware when they scheduled her appointment it was [place]. Patient was in [facility] waiting area after being checked in for appointment by PSS. Assisted rescheduling patient for [place]. Tessy Chow LPN Allergies As of Date: 02/22/2025 Noted Allergy Reaction CELEXA (CITALOPRAM) 03/21/2024 14 - Other: See Comments Comments: Tunnel vision LEXAPRO (ESCITALOPRAM) 03/21/2024 2 - Rash Date Reviewed: 02/14/2025 Reviewed by: Jamal Cortez APRN.[employer] - Fully Assessed Reason for Visit: Appointment [...] Encounter Status:Closed by TESSY CHOW on 03/04/25 THYROID PEROXIDASE ANTIBODY Collected: 02/18/2025 2:2 0 PM Status: F Source: [facility] Comment: Specimen Type : BLOOD SPECIMEN Ordering Facility: [facility] Address: [address] [place] [address] TYPE CODE TESTS RESULT OUT OF RANGE REFERENCE UNITS LAB 8099-4(LOINC) Thyroperoxidase Ab SerPl-aCnc <3.0 <5.6 IU/mL Result Comment: Thyroid Lisa xidase Antibody test is used as an aid in diagnosis of autoimmune thyroid disease. Clinical correlation is required. Performed By: #### MICRO ### # [facility] CLIA [id number] [address] [place] [address] STATES OF LO T4 FREE SERPL-MCNC Collected: 02/18/2025 2:20 PM Sta tus: F Source: [facility] Comment: Specimen Type : BLOOD SPECIMEN Ordering Facility: [facility] Address: [address] [place] [address] TYPE CODE TESTS RESULT OUT OF RANGE REFERENCE UNITS LAB 3024-7(LOINC) T4 Free SerPl-mCnc 1.3 0.9-1.7 ng/dL Performed By: #### 3053-6, 3 024-7 #### [facility] CLIA [id number] [address] [place] [address] STATES OF LO T3 SERPL-MCNC Collected: 02/18/2025 2:20 PM Status: F Source: [facility] Comment: Specimen Type : BLOOD SPECIMEN Ordering Facility: [facility] Address: [address] [place] [address] TYPE CODE TESTS RESULT OUT OF RANGE REFERENCE UNITS LAB 3053-6(LOINC) T3 SerPl-mCnc 109 79-165 ng/d L Performed By: #### 3053-6, 3 024-7 #### [facility] CLIA [id number] [address] [place] [address] STATES OF LO CNPN Observed: 02/18/2025 12:00 AM Status: COMPLETED Source: [facility] SHAWANDA BRINK ([id number]) 1 F Date Time Provider Department 02/18/25 ISSAC FERNÁNDEZ During your visit today, we recorded the following information about you: Keli Myers RN 02/18/2025 10:58 AM Signed Nadz with [employer] called wanting the billing codes for the [...] Date Reviewed: 02/14/2025 Reviewed by: Jamal Cortez APRN.[employer] - Fully Assessed Reason for Visit: Billing [...] Encounter Status:Closed by KELI MYERS on 02/18/25 HETEROPH AB SER QL LA Collected: 2024 4:35 PM Status: F Source: [facility] Order Comment: Specimen Type : BLOOD SPECIMEN Ordering Facility: [facility] Address: [address] [place] [address] TYPE CODE TESTS RESULT OUT OF RANGE REFERENCE UNITS LAB 5213-4([facility]) Heteroph Ab Ser Ql LA Negative Negative Result Comment: Infectious M ononucleosis rapid test is used as an aid [...] Clinical correlation is required. Performed By: #### 5213-4 ## ## [facility] CLIA [id number] [address] [place] [address] [place] COMP METAB 2000 PNL SERPL Collected: 4:35 PM Status: F Source: [facility] Order Comment: Specimen Type : BLOOD SPECIMEN Ordering Facility: [facility] Address: [address] [place] [address] TYPE CODE TESTS RESULT OUT OF RANGE REFERENCE UNITS LAB 2885-2(LOINC) Prot SerPl-mCnc 7.5 6.3-8.0 g/dL LAB 1751-7(LOINC) Albumin SerPl-mCnc 4.5 3.9-4.9 g/dL LAB 63710-8(LOINC) Calcium SerPl-mCnc 9.6 8.5-10.2 mg/dL LAB 1975-2(LOINC) Bilirub SerPl-mCnc 0.3 0.2-1.3 mg/dL LAB 6768-6(LOINC) ALP SerPl-cCnc 90 34-123 U/L LAB 1920-8(LOINC) AST SerPl-cCnc 15 13-35 U/L LAB 1742-6(LOINC) ALT SerPl-cCnc 14 7-38 U/L LAB 2345-7(LOINC) Glucose SerPl-mCnc 72 Low 74-99 mg/dL Result Comment: The [place] Diabetes Association (ADA) provides guidance for cutoff [...] Standards of Medical Care in Diabetes 2016, [place] Diabetes Association. Diabetes Care. 2016.39(Suppl 1). LAB 3094-0(LOINC) BUN SerPl-mCnc 11 7-21 mg/dL LAB 2160-0(LOINC) Creat SerPl-mCnc 0.71 0.58-0.96 mg/dL LAB 2951-2(LOINC) Sodium SerPl-sCnc 139 136-144 mmol/L LAB 2823-3(LOINC) Potassium SerPl-sCnc 4.1 3.7-5.1 mmol/L LAB 2075-0(LOINC) Chloride SerPl-sCnc 101 98-107 mmol/L LAB 2027-9(LOINC) CO2 SerPl-sCnc 25 22-30 mmol/L LAB 17085-9(LOINC) Anion Gap SerPl-sCnc 13 8-15 mmol/L LAB 48315-1(LOINC) eGFRcr SerPlBld CKD-EPI 2020 124 >=60 mL/min/1. 73m??? Result Comment: Estimated Gl omerular Filtration Rate (eGFR) is calculated using the 2020 CKD-EPI creatinine equation. This equation utilizes serum creatinine, sex, and age as parameters. The creatinine assay has traceable calibration to isotope dilution-mass spectrometry. Refer to KDIGO guidelines for clinical interpretation. In patients with unstable renal function, e.g. those with acute kidney injury, the eGFR may not accurately reflect actual GFR. Performed By: #### 32192-3 # ### [facility] CLIA [id number] [address] [place] [address] [place] [address] [place] CBC W AUTO DIFF BLD Collected: 02/14/2025 4:[address] atus: F Source: [facility] Order Comment: Specimen Type : BLOOD SPECIMEN Ordering Facility: [facility] Address: [address] [place] [address] TYPE CODE TESTS RESULT OUT OF RANGE REFERENCE UNITS LAB 6690-2(LOINC) WBC # Bld Auto 5.98 3.70-11.00 k/uL LAB 789-8(LOINC) RBC # Bld Auto 4.89 3.90-5.20 m/ uL LAB 718-7(LOINC) Hgb Bld-mCnc 14.3 11.5-15.5 g/dL LAB 4544-3(LOINC) Hct VFr Bld Auto 41.4 36.0-46.0 % LAB 787-2(LOINC) MCV RBC Auto 84.7 80.0-100.0 fL LAB 785-6(LOINC) MCH RBC Qn Auto 29.2 26.0-34.0 p g LAB 786-4(LOINC) MCHC RBC Auto-mCnc 34.5 30.5-36.0 g/dL LAB 63933-8(LOINC) RDW RBC-Rto 12.0 11.5-15.0 % LAB 777-3(LOINC) Platelet # Bld Auto 304 150-400 k/uL LAB 58440-4(LOINC) PMV Bld Auto 10.5 9.0-12.7 fL LAB 770-8(LOINC) Neutrophils/leuk NFr Bld Auto 52.8 % LAB 751-8(LOINC) Neutrophils # Bld Auto 3.15 1.45-7.50 k/uL LAB 736-9(LOINC) Lymphocytes/leuk NFr Bld Auto 41.3 % LAB 731-0(LOINC) Lymphocytes # Bld Auto 2.47 1.00-4.00 k/uL LAB 5905-5(LOINC) Monocytes/leuk NFr Bld Auto 3.8 % LAB 742-7(LOINC) Monocytes # Bld Auto 0.23 <0.87 k/uL LAB 713-8(LOINC) Eosinophil/leuk NFr Bld Auto 1.3 % LAB 711-2(LOINC) Eosinophil # Bld Auto 0.08 <0.46 k/uL LAB 706-2(LOINC) Basophils/leuk NFr Bld Auto 0.5 % LAB 704-7(LOINC) Basophils # Bld Auto 0.03 <0.11 k/uL LAB 99630-5(LOINC) Imm Granulocytes/blanca k NFr Bld Auto 0.3 % LAB 39151-9(LOINC) Imm Granulocytes # Bld Auto <0.03 <0.10 k/uL LAB 68155-5(LOINC) nRBC/100 WBC Bld-Rto 0.0 /100 WBC LAB 771-6(LOINC) nRBC # Bld Auto <0.01 <0.01 k/u L LAB 51780-1(LOINC) Differential method Bld Auto Performed By: #### 03878-7 # ### [facility] CLIA [id number] [address] [place] [address] [facility] CNOV Observed: 02/14/2025 4:30 PM Status: COMPLETED Source: [facility] Office Visit ([facility]EN[facility]) SHAWANDA BRINK ([id number]) 1 F Date Time Provider Department 02/14/25 4:30 PM JAMAL CORTEZ During your visit today, we recorded the following information about you: Temperature Pulse Respiration Blood pressure 97.3 degrees 87/minute 18/minute 135/85 Weight 75.6 kg Jamal Cortez APRN.[employer] 02/14/2025 7:09 PM Signed [facility] Tavera Shawanda Brink is [...] of care. This note was generated using Kwaab software. It may contain errors in wording, punctuation, or spelling. Jamal Cortez APRN.[facility] History and Record Review Clinical information obtained from an independent historian. History obtained from or confirmed by: parent. External record(s) reviewed: prior outpatient record. Disposition The patient was discharged. Procedures Allergies As of Date: 02/14/2025 Noted Allergy Reaction CELEXA (CITALOPRAM) 03/21/2024 14 - Other: See Comments Comments: Tunnel vision LEXAPRO (ESCITALOPRAM) 03/21/2024 2 - Rash Date Reviewed: 02/14/2025 Reviewed by: Jamal Cortez APRN.[facility] - Fully Assessed Reason for Visit: Sore Throat [200] Cmt: Fever, AKERS, neck pain, pressure in ears and dizziness x8 days Primary Visit Diagnosis:Pharyngitis, unspecified etiology [J02.9] Other Visit Diagnosis:Viral illness [B34.9] Order(s):MONOTEST, INFECTIOUS MONO [SQMONOLX] Order #: [id number] FUTURE COMPLETE BLOOD COUNT AND DIFFERENTIAL [SQCBCDIF] Order #: [id number] FUTURE COMPREHENSIVE METABOLIC PANEL [SQCMP] Order #: [id number] FUTURE Prescriptions as of 02/14/2025 - meclizine (ANTIVERT) [...] Service: OFFICE/OUTPATIENT ESTABLISHED LOW MDM 20 MIN [29767] Encounter Status:Closed by JAAML CORTEZ on 02/14/25 PROGRESS Observed: 02/14/2025 4:15 PM Status: COMPLETED Source: [facility] HNO ID: [id number] Author: JAMAL CORTEZ APRN.[employer] Service: ? Author Type: Nurse Practitioner Type: Progress Notes Filed: 02/14/2025 19:09 Note Text: URGENT CARE SHIRAZ Brink is [...] of care. This note was generated using Kwaab software. It may contain errors in wording, punctuation, or spelling. Jamal Cortez APRN.[employer] History and Record Review Clinical information obtained from an independent historian. History obtained from or confirmed by: parent. External record(s) reviewed: prior outpatient record. Disposition The patient was discharged. Procedures CNPN Observed: 02/14/2025 12:00 AM Status: COMPLETED Source: [facility] Telephone (C[employer]use) SHAWANDA BRINK ([id number]) 1 F Date Time Provider Department 02/14/25 ISSAC FERNÁNDEZ [employer] During your visit today, we recorded the [...] Encounter Status:Closed by BELA MARTINEZ on 02/14/25 PROGRESS Observed: 02/10/2025 2:28 PM Status: COMPLETED Source: [facility] ID: [id number] Author: SIERRA ALTAMIRANO APRN.[employer] Service: ? Author Type: Nurse Practitioner Type: Progress Notes Filed: 02/10/2025 14:31 Note Text: Ayse Brink is a 19 year old female. The history is provided by the patient. No language teacher was used. JUVENAL Brink is [...] from review of inpatient records: ER record [facility]08 Systemic symptoms present included: fever Differential [...] warranting prompt ER evaluation. Sierra Altamirano APRN.CNP CNOV Observed: 02/10/2025 1:00 PM Status: COMPLETED Source: [facility] Office Visit (WOUCA) SHAWANDA BRINK ([id number]) 1 F Date Time Provider Department 02/10/25 1:00 PM SIERRA ALTAMIRANO During your visit today, we recorded the following information about you: Temperature Pulse Respiration Blood pressure 98.2 degrees 89/minute 18/minute 121/87 Weight 75.7 kg Sierra Altamirano APRN.[employer] 02/10/2025 1:20 PM Signed Make sure to [...] also be helpful for pain. Sierra Altamirano APRN.[employer] 02/10/2025 2:31 PM Signed Subjective Shawanda Brink is a 19 year old female. The history is provided by the patient. No language teacher was used. HPI Shawanda Brink [...] from review of inpatient records: ER record [facility]/08 Systemic symptoms present included: fever Differential [...] detail warranting prompt ER evaluation. Sierra Altamirano APRN.[employer] Allergies As of Date: 02/10/2025 Noted Allergy Reaction CELEXA (CITALOPRAM) 03/21/2024 14 - Other: See Comments Comments: Tunnel vision LEXAPRO (ESCITALOPRAM) 03/21/2024 2 - Rash Date Reviewed: 02/10/2025 Reviewed by: Janett Pino MA - Fully Assessed Reason for Visit: Sore Throat [200] Cmt: Bodyaches, fever x3 days Primary Visit Diagnosis:Strep pharyngitis [J02.0] Other Visit Diagnosis:Sore throat [J02.9] Order(s):STREP A MOLECULAR (POC) [0175451] Order #: [id number]. #:[id number] amoxicillin (AMOXIL) 500 mg capsuleTake 1 capsule by mouth two times a day for 10 days.Disp: 20 capsuleRfl: 0 Prescriptions as of 02/10/2025 - meclizine (ANTIVERT) 25 mg tab - [...] once daily. Problem List As Of Date 02/10/2025 Noted Resolved Acne vulgaris [L70.0] 08/18/2015 Mild persistent asthma without complication [J4*09/27/2016 Flat foot [M21.40] 07/20/2017 Influenza vaccine refused [Z28.21] 07/20/2017 Depression [F32.A] 08/04/2021 Generalized anxiety disorder [F41.1] 08/04/2021 Other instructions from your clinician: Make sure to finish all of the [...] spray may also be helpful for pain. Prescriptions ordered this encounter Disp Refills Start End AMOXICILLIN 500 MG CAPSULE 20 c* 0 02/10/2025 02/20/2025 Route: PO Sig: Take 1 capsule by mouth two times a day for 10 days. Medications Discontinued During This Encounter Prescriptions - amoxicillin-clavulanate potassium (AUGMENTIN) 875-125 mg per tablet (Discontinued) Reported on 02/10/2025 Letter Text Encounter Status:Closed by SIERRA ALTAMIRANO on 02/10/25 PROGRESS Observed: 02/07/2025 11:18 AM Status: COMPLETED Source: [facility] HNO ID: [id number] Author: JANETT PINO MA Service: ? Author Type: Photographer Helper Type: Progress Notes Filed: 02/07/2025 11:42 Note [...] pre and post procedure Rohan Villalba CNP PROGRESS Observed: 02/07/2025 10:31 AM Status: COMPLETED Source: [facility] HNO ID: [id number] Author: ROHAN VILLALBA APRN.SUSANA Service: ? Author Type: Nurse Practitioner Type: Progress Notes Filed: 02/07/2025 11:42 Note Text: Subjective Patient ID: Shawanda is a 19 year old female who presents for Ear Problem (Bilateral ear pressure x4 days, head pressure x1 month). The history is provided by the patient. No language teacher was used. Patient presents to [...] Maternal Grandmother Cervical Cancer Maternal Grandmother other (PR) Maternal Grandfather 49 other (depression and anxiety) [...] and frontal sinus tenderness present. Mouth/Throat: Lips: Sublette. No lesions. Mouth: Mucous membranes are moist. [...] ears Deyanira Hung NP student TEACHING PROVIDER (Physician/PA/SERVICES PROGRAM MANAGER) NOTE OF PERSONAL INVOLVEMENT IN CARE: I have personally seen and examined the patient and performed the medical decision-making components. I have reviewed the Advanced Practice Registered Nurse (SERVICES PROGRAM MANAGER) Student's documentation and verified the findings in the note as written. Any additions or changes are noted in bold/italics. Signature: Rohan Villalba Date: 02/07/2025 Time: 11:41 AM CNOV Observed: 02/07/2025 10:30 AM Status: COMPLETED Source: [facility] Office Visit ([facility]OU[facility]) SHAWANDA BRINK ([id number]) 1 F Date Time Provider Department 02/07/25 10:30 AM ROHAN VILLALBA During your visit today, we recorded the following information about you: Temperature Pulse Respiration Blood pressure 97.7 degrees 81/minute 18/minute 126/83 Weight 77 kg Rohan Villalba APRN.[employer] 02/07/2025 11:42 AM Signed Subjective Patient ID: Shawanda is a 19 year old female who presents for Ear Problem (Bilateral ear pressure x4 days, head pressure x1 month). The history is provided by the patient. No language teacher was used. Patient presents to [...] Maternal Grandmother Cervical Cancer Maternal Grandmother other (PR) Maternal Grandfather 49 other (depression and anxiety) [...] and frontal sinus tenderness present. Mouth/Throat: Lips: Sublette. No lesions. Mouth: Mucous membranes are moist. [...] ears Deyanira Hung NP student TEACHING PROVIDER (Physician/PA/SERVICES PROGRAM MANAGER) NOTE OF PERSONAL INVOLVEMENT IN CARE: I have personally seen and examined the patient and performed the medical decision-making components. I have reviewed the Advanced Practice Registered Nurse (SERVICES PROGRAM MANAGER) Student's documentation and verified the findings in the note as written. Any additions or changes are noted in bold/italics. Signature: Rohan Villalba Date: 02/07/2025 Time: 11:41 AM Janett Pino MA 02/07/2025 11:42 AM Signed Ambulatory Ear Lavage Pre-treatment: No pre-treatment Treatment: [...] pre and post procedure Rohan Villalba CNP Allergies As of Date: 02/07/2025 Noted Allergy Reaction CELEXA (CITALOPRAM) 03/21/2024 14 - Other: See Comments Comments: Tunnel vision LEXAPRO (ESCITALOPRAM) 03/21/2024 2 - Rash Date Reviewed: 02/07/2025 Reviewed by: Janett Pino MA - Fully Assessed Reason for Visit: Ear Problem [38] Cmt: Bilateral ear pressure x4 days, head pressure x1 month Primary Visit Diagnosis:Impacted cerumen of right ear [H61.21] Other Visit Diagnosis:Rhinosinusitis [J32.9] Order(s): REMOVAL OF IMPACTED CERUMEN - INSTRUMENTATION [50662GDC] Order #: [id number] amoxicillin-clavulanate potassium (AUGMENTIN) 875-125 mg per tabletTake 1 tablet by mouth two times a day for 7 days.Disp: 14 tabletRfl: 0 Prescriptions as of 02/07/2025 - amoxicillin-clavulanate potassium (AUGMENTIN) 875-125 mg per tablet Take 1 tablet by mouth two times a day for 7 days. - amitriptyline (ELAVIL) 10 mg tablet [...] once daily. Problem List As Of Date 02/07/2025 Noted Resolved Acne vulgaris [L70.0] 08/18/2015 Mild persistent asthma without complication [J4*09/27/2016 Flat foot [M21.40] 07/20/2017 Influenza vaccine refused [Z28.21] 07/20/2017 Depression [F32.A] 08/04/2021 Generalized anxiety disorder [F41.1] 08/04/2021 Prescriptions ordered this encounter Disp Refills Start End AMOXICILLIN 875 MG-POTASSIUM CLAVULA* 14 t* 0 02/07/2025 02/14/2025 Route: PO Sig: Take 1 tablet by mouth two times a day for 7 days. Encounter Status:Closed by ROHAN VILLALBA on 02/07/25 MRI BRAIN WO IVCON Observed: 01/31/2025 8:30 AM Status: F Source: [facility] * * *Final Report* * * DATE [...] Unremarkable appearance of the cerebral white matter. Accounts Specialist: PSCMarcos Transcribe Date/Time: Jan 31 2025 8:48A Dictated by : ISSAC GEIGER MD This examination was interpreted and the report reviewed and electronically signed by: ISSAC GEIGER MD on Jan 31 2025 8:52AM EST [id number] PROGRESS Observed: 01/31/2025 8:00 AM Status: COMPLETED Source: [facility] HNO ID: [id number] Author: DAVID TOLEDO RT(R) Service: ? Author Type: Technologist Type: [...] PATIENT PRESENTS WITH AN IMPLANTABLE OR ATTACHED CERTIFIED NURSE PRACTITIONER: No RADIOLOGY DEPARTMENT: MR; Exam(s) Completed: Head: Routine Brain. Aromatherapy Administered: No PERIPHERAL IV DATA: Not applicable SIGNED BY: RT Agustina(R) January 31, 2025 8:03 AM PROGRESS Observed: 01/25/2025 10:11 AM Status: COMPLETED Source: [facility] ID: [id number] Author: ISSAC FERNÁNDEZ MD Service: ? Author Type: Physician Type: Progress Notes Filed: 01/25/2025 10:46 Note Text: Chief Complaint Patient presents with: Follow Up Recording using eZelleron software for draft documentation of the visit was discussed with the patient/authorized sales representative printing paper; all questions welcomed and answered. 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 Past medical history, appointments, medications, allergies reviewed. [...] Maternal Grandmother Cervical Cancer Maternal Grandmother other (PR) Maternal Grandfather 49 other (depression and anxiety) [...] Abs Lymph 1.00 - 4.00 k/uL 2.32 Callahan% % 5.4 Abs Callahan <0.87 k/uL 0.42 Eosin% % 3.1 Abs [...] 8 - 15 mmol/L 11 eGFR >=60 mL/min/1.73m? 126 TSH 0.270 - 4.200 mIU/L 1.190 [...] mg PO at bedtime; prescription sent to [facility]. - Follow-up in 3 months to [...] 09 for further evaluation. Issac Fernández MD CNOV Observed: 01/25/2025 10:00 AM Status: COMPLETED Source: [facility] SHAWANDA BRINK ([id number]) 1 F Date Time Provider Department 01/25/25 10:00 AM ISSAC FERNÁNDEZ During your visit today, we recorded the following information about you: Pulse Blood pressure Weight Height 72/minute 120/86 76.8 kg 1.647 m Issac Fernández MD 01/25/2025 10:46 AM Signed Chief Complaint Patient presents with: Follow Up Recording using eZelleron software for draft documentation of the visit was discussed with the patient/authorized sales representative printing paper; all questions welcomed and answered. 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 Past medical history, appointments, medications, allergies reviewed. Previous Medical History PAST MEDICAL HISTORY Diagnosis Date Acne vulgaris 08/18/2015 Anxiety Bipolar 2 disorder ([facility]) Cough variant asthma ([facility]) 09/27/2016 Depression Migraines PMH - PAST MEDICAL HISTORY OF vascular rose left ankle Previous Surgical History PAST SURGICAL HISTORY Procedure Laterality Date NONE Family History FAMILY HISTORY Problem Relation Age of Onset Ange Disease Mother other (pulmnary embolism) Father other (mass on liver) Father other (depression and anxiety) Maternal Grandmother Cervical Cancer Maternal Grandmother other (PR) Maternal Grandfather 49 other (depression and anxiety) [...] Abs Lymph 1.00 - 4.00 k/uL 2.32 Callahan% % 5.4 Abs Callahan <0.87 k/uL 0.42 Eosin% % 3.1 Abs [...] 8 - 15 mmol/L 11 eGFR >=60 mL/min/1.73m? 126 TSH 0.270 - 4.200 mIU/L 1.190 [...] mg PO at bedtime; prescription sent to [facility]. - Follow-up in 3 months to [...] doctor on February 09 for further evaluation. MD Pradeep Hinojosa Christopher B, MD 01/25/2025 10:40 AM Signed - Start amitriptyline 10 mg by mouth at bedtime to help prevent your migraine headaches; a 30-day supply with refills has been sent to [facility] in [place]. Let us know if your headaches return [...] will arrange this follow-up before you go. Allergies As of Date: 01/25/2025 Noted Allergy Reaction CELEXA (CITALOPRAM) 03/21/2024 14 - Other: See Comments Comments: Tunnel vision LEXAPRO (ESCITALOPRAM) 03/21/2024 2 - Rash Date Reviewed: 01/25/2025 Reviewed by: Nasima Guthrie MA - Fully Assessed Reason for Visit: Follow Up [171] Primary Visit Diagnosis:Migraine without status migrainosus, not intractable, unspecified migraine type [G43.909] Other Visit Diagnoses:Unsteadiness on feet [R26.81] Numbness and tingling [R20.0, R20.2] Demyelinating disease of central nervous system (HCC) [G37.9] Blurred vision [H53.8] Dizziness and giddiness [R42] Order(s):CONSULT TO NEUROLOGY [0369] Order #: [id number]: 1 FUTURE MRI BRAIN WO IVC [3934583] Order #: [id number] FUTURE amitriptyline (ELAVIL) 10 mg tabletTake 1 tablet by mouth daily at bedtime.Disp: 30 tabletRfl: 2 Prescriptions as of 01/25/2025 - amitriptyline (ELAVIL) 10 mg tablet Take [...] once daily. Problem List As Of Date 01/25/2025 Noted Resolved Acne vulgaris [L70.0] 08/18/2015 Mild persistent asthma without complication [J4*09/27/2016 Flat foot [M21.40] 07/20/2017 Influenza vaccine refused [Z28.21] 07/20/2017 Depression [F32.A] 08/04/2021 Generalized anxiety disorder [F41.1] 08/04/2021 Other instructions from your clinician: - Start amitriptyline 10 mg by mouth at bedtime to help prevent your migraine headaches; a 30-day supply with refills has been sent to [facility] in [place]. Let us know if your headaches return [...] will arrange this follow-up before you go. Prescriptions ordered this encounter Disp Refills Start End AMITRIPTYLINE 10 MG TABLET 30 t* 2 01/25/2025 04/25/2025 Route: PO Sig: Take 1 tablet by mouth daily at bedtime. Medications Discontinued During This Encounter Prescriptions - propranolol (INDERAL) 40 mg tablet (Discontinued) Reported on 01/25/2025 Disposition: Return in about 3 months (around 04/27/2025) for recheck migraines and neurologic concerns. Follow-up and Disposition History for Encounter Date Provider Department Center 01/25/2025 [id number] FERNÁNDEZFAMMiriamRORY [place] [facility] Encounter Status:Closed by ISSAC FERNÁNDEZ on 01/25/25 CNPN Observed: 01/11/2025 12:00 AM Status: COMPLETED Source: [facility] Telephone (FAMPWS) SHAWANDA BRINK ([id number]) 1 F Date Time Provider Department 01/11/25 ISSAC FERNÁNDEZ During your visit today, we [...] 10:12 AM Signed Per provider Veronica Muse CRECHE ATTENDANT, See if they can reschedule the ECHO [...] Rash Date Reviewed: 12/27/2024 Reviewed by: Nasima Guthrie MA - Fully Assessed Reason for Visit: Patient Question [3005] Prescriptions as of 01/11/2025 - propranolol (INDERAL) [...] Encounter Status:Closed by KELI MYERS on 01/11/25 CBC W AUTO DIFF BLD Collected: 12/28/2024 8:[address] atus: F Source: [facility] Order Comment: Specimen Type : BLOOD SPECIMEN Ordering Facility: [facility] Address: [address] [place] [address] TYPE CODE TESTS RESULT OUT OF RANGE REFERENCE UNITS LAB 6690-2(LOINC) WBC # Bld Auto 7.79 3.70-11.00 k/uL LAB 789-8(LOINC) RBC # Bld Auto 4.81 3.90-5.20 m/ uL LAB 718-7(LOINC) Hgb Bld-mCnc 14.0 11.5-15.5 g/dL LAB 4544-3(LOINC) Hct VFr Bld Auto 42.9 36.0-46.0 % LAB 787-2(LOINC) MCV RBC Auto 89.2 80.0-100.0 fL LAB 785-6(LOINC) MCH RBC Qn Auto 29.1 26.0-34.0 p g LAB 786-4(LOINC) MCHC RBC Auto-mCnc 32.6 30.5-36.0 g/dL LAB 00482-7(LOINC) RDW RBC-Rto 12.8 11.5-15.0 % LAB 777-3(LOINC) Platelet # Bld Auto 341 150-400 k/uL LAB 20042-5(LOINC) PMV Bld Auto 11.1 9.0-12.7 fL LAB 770-8(INC) Neutrophils/leuk NFr Bld Auto 60.9 % LAB 751-8(INC) Neutrophils # Bld Auto 4.75 1.45-7.50 k/uL LAB 736-9([facility]) Lymphocytes/leuk NFr Bld Auto 29.8 % LAB 731-0([facility]) Lymphocytes # Bld Auto 2.32 1.00-4.00 k/uL LAB 5905-5([facility]) Monocytes/leuk NFr Bld Auto 5.4 % LAB 742-7([facility]) Monocytes # Bld Auto 0.42 <0.87 k/uL LAB 713-8([facility]) Eosinophil/leuk NFr Bld Auto 3.1 % LAB 711-2([facility]) Eosinophil # Bld Auto 0.24 <0.46 k/uL LAB 706-2([facility]) Basophils/leuk NFr Bld Auto 0.5 % LAB 704-7([facility]) Basophils # Bld Auto 0.04 <0.11 k/uL LAB 39650-6([facility]) Imm Granulocytes/blanca k NFr Bld Auto 0.3 % LAB 85877-0([facility]) Imm Granulocytes # Bld Auto <0.03 <0.10 k/uL LAB 61087-2([facility]) nRBC/100 WBC Bld-Rto 0.0 /100 WBC LAB 771-6([facility]) nRBC # Bld Auto <0.01 <0.01 k/u L LAB 50134-3([facility]) Differential method Bld Auto Performed By: #### 88672-7 # ### [facility] CLIA [id number] [address] [place] [address] [place] COMP METAB 2000 PNL SERPL Collected: 8:19 AM Status: F Source: [facility] Order Comment: Specimen Type : BLOOD SPECIMEN Ordering Facility: [facility] Address: [address] [place] [address] TYPE CODE TESTS RESULT OUT OF RANGE REFERENCE UNITS LAB 2885-2([facility]) Prot SerPl-mCnc 7.5 6.3-8.0 g/dL LAB 1751-7(LOINC) Albumin SerPl-mCnc 4.3 3.9-4.9 g/dL LAB 95091-3(LOINC) Calcium SerPl-mCnc 9.7 8.5-10.2 mg/dL LAB 1975-2(LOINC) Bilirub SerPl-mCnc 0.3 0.2-1.3 mg/dL LAB 6768-6[facility] ALP SerPl-cCnc 108 34-123 U/L LAB 1920-8(LOINC) AST SerPl-cCnc 13 13-35 U/L LAB 1742-6(LOINC) ALT SerPl-cCnc 13 7-38 U/L LAB 2345-7(INC) Glucose SerPl-mCnc 80 74-99 mg/dL Result Comment: The [place] Diabetes Association (ADA) provides guidance for cutoff [...] Standards of Medical Care in Diabetes 2016, [place] Diabetes Association. Diabetes Care. 2016.39(Suppl 1). LAB 3094-0(LOINC) BUN SerPl-mCnc 14 7-21 mg/ dL LAB 2160-0(LOINC) Creat SerPl-mCnc 0.70 0.58-0.96 mg/dL LAB 2951-2(LOINC) Sodium SerPl-sCnc 140 136-144 mmol/L LAB 2823-3(LOINC) Potassium SerPl-sCnc 3.9 3.7-5.1 mmol/L LAB 2075-0(LOINC) Chloride SerPl-sCnc 104 98-107 mmol/L LAB 8-9(LOINC) CO2 SerPl-sCnc 25 22-30 mmo l/L LAB 00848-0(LOINC) Anion Gap SerPl-sCnc 11 8-15 mmol/L LAB 47000-1(LOINC) Creatinine + eGFR Pnl SerPlBld 126 >=60 mL/min/1 .73m??? Result Comment: Estimated Gl omerular Filtration Rate (eGFR) is calculated using the 2020 CKD-EPI creatinine equation. This equation utilizes serum creatinine, sex, and age as parameters. The creatinine assay has traceable calibration to isotope dilution-mass spectrometry. Refer to KDIGO guidelines for clinical interpretation. In patients with unstable renal function, e.g. those with acute kidney injury, the eGFR may not accurately reflect actual GFR. Performed By: #### 3016-3, 1 9123-9, 03703-0 #### [facility] CLIA [id number] [address] [place] [address] MAGNESIUM SERPL-MCNC Collected: 12/28/2024 8:19 AM S tatus: F Source: [facility] Order Comment: Specimen Type : BLOOD SPECIMEN Ordering Facility: [facility] Address: [address] [place] [address] TYPE CODE TESTS RESULT OUT OF RANGE REFERENCE UNITS LAB 63387-2([facility]) Magnesium SerPl-mCnc 2.1 1.7-2.3 mg/dL Performed By: #### 3016-3, 1 9123-9, 49561-0 #### [facility] CLIA [id number] [address] [place] [address] [facility] TSH SERPL-ACNC Collected: 8:19 AM Status: F Source: [facility] Order Comment: Specimen Type : BLOOD SPECIMEN Ordering Facility: [facility] Address: [address] [place] [address] TYPE CODE TESTS RESULT OUT OF RANGE REFERENCE UNITS LAB 3016-3([facility]) TSH SerPl-aCnc 1.190 0.270-4.200 mIU/L Result Comment: If the patie nt is , TSH reference range varies by gestational period: First Trimester (weeks 9-12): 0.180-2.990 mIU/L Second Trimester: 0.110-3.980 mIU/L Third Trimester: 0.480-4.710 mIU/L Khoa Hernandez et al. A Practical Approach for the Verifications and Determination of Site- and Trimester-Specific Reference Intervals for Thyroid Function tests in . Thyroid, 2019:29:3:412-420. Macario Choe, et al. 2017 Guidelines of the [place] Thyroid Association for the Diagnosis and Management of Thyroid Disease during and the . Thyroid, 2017:27:3:315-389. Performed By: #### 3016-3, 1 9123-9, 97669-0 #### [facility] CLIA [id number] [address] [place] [address] ECG COMPLETE Observed: 12/27/2024 12:37 PM Status: F Source: [facility] Ventricular Rate : 73 BPM Atrial Rate : 73 BPM P-R Interval : 136 ms QRS Duration : 82 ms Q-T Interval : 394 ms QTC Calculation(Bazett) : 434 ms Calculated P [place] : 41 degrees Calculated R [place] : 7 degrees Calculated T [place] : 34 degrees NORMAL SINUS RHYTHM WITH SINUS ARRHYTHMIA NORMAL ECG Confirmed by MD MCCALL QARAB ([id number]) on 12/31/2024 11:01:42 AM NAME : SHAWANDA BRINK PID : [id number] : 2005 Gender : Female Race : ORD : [id number] Procedure Date : Dec 27 2024 12:37:06 Edit Date : Dec 31 2024 11:01:47 Diagnosis: NORMAL SINUS RHYTHM WITH SINUS ARRHYTHMIA NORMAL ECG Confirmed by MD MCCALL QARAB ([id number]) on 12/31/2024 11:01:42 AM Test Reason : R00.2 Palpitations Location : 136 : [place] Overread By : MD MCCALL QARAB Edited By : MD MCCALL QARAB Referred By : , Acquired by : KEYANA CHRISTIANSON Observed: 12/27/2024 12:20 PM Status: COMPLETED Source: [facility] ([id number]) 1 F Date Time Provider Department 12/27/24 12:20 PM ISSAC FERNÁNDEZ During your visit today, we recorded the following information about you: Pulse Blood pressure Weight Height 80/minute 104/84 78 kg [id number] m Issac Fernández MD 12/27/2024 1:15 PM Signed Chief Complaint Patient presents with: Migraine Tachycardia Recording using eZelleron software for draft documentation of the visit was discussed with the patient/authorized sales representative printing paper; all questions welcomed and answered. Patient/authorized sales representative printing paper agreed to proceed HPI Shawanda Brink is [...] of gestational diabetes. - Previous evaluation by [facility] in September or October 2022; [...] Maternal Grandmother Cervical Cancer Maternal Grandmother other (PR) Maternal Grandfather 49 other (depression and anxiety) [...] which included preparing to see the patient, [id number] patient care, completing clinical documentation, obtaining and/or reviewing separately obtained history, performing a medically appropriate examination, counseling and educating the patient/family/caregiver, ordering medications, tests, or procedures, independently interpreting results (not separately reported), and communicating results to the patient/family/caregiver. MD Pradeep Hinojosa Christopher B, MD 12/27/2024 1:07 PM Signed - Start propranolol 40 mg twice daily [...] condoms during sexual intercourse or follow up [facility] COMMERCIAL TIRE SERVICE TECHNICIAN to discuss control options. If you were to become or are trying to become , please notify our office right away. - Check in at the front end web developer and go to the lab today for your blood tests. - front desk admin will schedule your heart ultrasound (echocardiogram) and [...] pain, shortness of breath, or feel faint. Allergies As of Date: 12/27/2024 Noted Allergy Reaction CELEXA (CITALOPRAM) 03/21/2024 14 - Other: See Comments Comments: Tunnel vision LEXAPRO (ESCITALOPRAM) 03/21/2024 2 - Rash Date Reviewed: 12/27/2024 Reviewed by: Nasima Guthrie MA - Fully Assessed Reason for Visit: Migraine [4107] Tachycardia [3908] Primary Visit Diagnosis:Migraine with aura, intractable, without status migrainosus [G43.119] Other Visit Diagnoses:Palpitations [R00.2] Tachycardia [R00.0] Encounter for test, result unknown [Z32.00] Order(s):propranolol (INDERAL) 40 mg tabletTake 1 tablet by mouth two times a day.Disp: 180 tabletRfl: 0 COMPLETE BLOOD COUNT AND DIFFERENTIAL [SQCBCDIF] Order #: [id number] FUTURE COMPREHENSIVE METABOLIC PANEL [SQCMP] Order #: [id number] FUTURE THYROID STIMULATING HORMONE [SQTSH] Order #: [id number] FUTURE MAGNESIUM [SQMG1] Order #: [id number] FUTURE HCG QUAL UR B/O [2935230] Order #: [id number] ECG COMPLETE [ECG01] Order #: [id number]. #:[id number]--XIBAwnq ECHO [914440] Order #: [id number]: 1 FUTURE UA DIP,URINE HCG (POC) [0551007] Order #: [id number]. #:[id number] OUTSIDE VENDOR CARDIAC OUTPATIENT EXTENDED RHYTHM RECORDING (WITHOUT TELEMETRY) [8150998] Order #: [id number]: 1 Prescriptions as of 12/27/2024 - propranolol (INDERAL) 40 mg tablet Take 1 tablet by mouth two times a day. - SUMAtriptan (IMITREX) 50 mg tablet Take 1 tablet by mouth as needed for migraine headache (see administration instructions). May repeat dose after 2 hours if needed. Maximum daily dose is 200 mg per day. - FLUoxetine (PROZAC) 20 mg capsule Take 1 capsule by mouth once daily. Medication notes this encounter FLUOXETINE 20 MG CAPSULE >> Nasima Guthrie MA 12/27/2024 12:00 PM >> NASIMA GUTHRIE Alaina Dec 27, 2024 12:00 PM Has not started yet Problem List As Of Date 12/27/2024 Noted Resolved Acne vulgaris [L70.0] 08/18/2015 Mild persistent asthma without complication [J4*09/27/2016 Flat foot [M21.40] 07/20/2017 Influenza vaccine refused [Z28.21] 07/20/2017 Depression [F32.A] 08/04/2021 Generalized anxiety disorder [F41.1] 08/04/2021 Other instructions from your clinician: - Start propranolol 40 mg twice daily [...] condoms during sexual intercourse or follow up [facility] COMMERCIAL TIRE SERVICE TECHNICIAN to discuss control options. If you were to become or are trying to become , please notify our office right away. - Check in at the front end web developer and go to the lab today for your blood tests. - front desk admin will schedule your heart ultrasound (echocardiogram) and [...] pain, shortness of breath, or feel faint. Prescriptions ordered this encounter Disp Refills Start End PROPRANOLOL 40 MG TABLET 180 * 0 12/27/2024 03/27/2025 Route: PO Sig: Take 1 tablet by mouth two times a day. Encounter Status:Closed by ISSAC FERNÁNDEZ on 12/27/24 PROGRESS Observed: 12/27/2024 12:17 PM Status: COMPLETED Source: [facility] ID: [id number] Author: ISSAC FERNÁNDEZ MD Service: ? Author Type: Physician Type: Progress Notes Filed: 12/27/2024 13:15 Note Text: Chief Complaint Patient presents with: Migraine Tachycardia Recording using eZelleron software for draft documentation of the visit was discussed with the patient/authorized sales representative printing paper; all questions welcomed and answered. Patient/authorized sales representative printing paper agreed to proceed HPI Shawanda Brink is [...] of gestational diabetes. - Previous evaluation by [facility] in September or October 2022; [...] Maternal Grandmother Cervical Cancer Maternal Grandmother other (PR) Maternal Grandfather 49 other (depression and anxiety) [...] which included preparing to see the patient, [id number] patient care, completing clinical documentation, obtaining and/or reviewing separately obtained history, performing a medically appropriate examination, counseling and educating the patient/family/caregiver, ordering medications, tests, or procedures, independently interpreting results (not separately reported), and communicating results to the patient/family/caregiver. Issac Fernández MD PROCEDURE Observed: 12/27/2024 11:55 AM Status: COMPLETED Source: [facility] ID: [id number] Author: MINDY BORREGO MD Service: ? Author [...] VE Couplets or VE Triplets were present. PROGRESS Observed: 11/30/2024 10:26 AM Status: COMPLETED Source: [facility] HNO ID: [id number] Author: VERONICA MUSE APRN.DRAFTER CONSTRUCTION Service: ? Author Type: Nurse Practitioner Type: Progress Notes Filed: 11/30/2024 10:59 Note Text: 11/30/2024 Patient presents with: Headache: Another that started this AM. Has been having one x8 days Recording using eZelleron software for draft documentation of the visit was discussed with the patient/authorized sales representative printing paper; all questions welcomed and answered. Patient/authorized sales representative printing paper agreed to proceed SUBJECTIVE: This is a [...] Asthma Action Plan due on 08/27/2023 Covid-19 Vaccine() Never done Cervical Cancer Screening Never done [...] Z39.1 - plan as above Veronica Muse APRN.DRAFTER CONSTRUCTION Prescription instructions reviewed with patient as applicable. [...] Medical Decision Making Level: 4 - Moderate CNOV Observed: 11/30/2024 10:20 AM Status: COMPLETED Source: [facility] SHAWANDA BRINK ([id number]) 1 F Date Time Provider Department 11/30/24 10:20 AM VERONICA MUSE During your visit today, we recorded the following information about you: Pulse Respiration Blood pressure Weight 66/minute 16/minute 108/86 78.2 kg Veronica Muse APRN.CNP 11/30/2024 10:59 AM Signed 11/30/2024 Patient presents with: Headache: Another that started this AM. Has been having one x8 days Recording using eZelleron software for draft documentation of the visit was discussed with the patient/authorized sales representative printing paper; all questions welcomed and answered. Patient/authorized sales representative printing paper agreed to proceed SUBJECTIVE: This is a [...] Bipolar 2 disorder (HCC) Cough variant asthma ([facility]) 09/27/2016 Depression Migraines PMH - [...] Z39.1 - plan as above Veronica Muse APRN.DRAFTER CONSTRUCTION Prescription instructions reviewed with patient as applicable. [...] Medical Decision Making Level: 4 - Moderate Veronica Muse APRN.CNP 11/30/2024 10:45 AM Addendum The most commonly used are magnesium 400 [...] help reduce the frequency of your migraines. Allergies As of Date: 11/30/2024 Noted Allergy Reaction CELEXA (CITALOPRAM) 03/21/2024 14 - Other: See Comments Comments: Tunnel vision LEXAPRO (ESCITALOPRAM) 03/21/2024 2 - Rash Date Reviewed: 11/30/2024 Reviewed by: Yohana Bird LPN - Fully Assessed Reason for Visit: Headache [52] Cmt: Another that started this AM. Has been having one x8 days Visit Diagnoses:Migraine with aura, intractable, without status migrainosus [G43.119] Mother currently breast-feeding ([facility]) [Z39.1] Order(s):SUMAtriptan (IMITREX) 50 mg tabletTake 1 tablet by mouth as needed for migraine headache (see administration instructions). May repeat dose after 2 hours if needed. Maximum daily dose is 200 mg per day.Disp: 9 tabletRfl: 3 Prescriptions as of 11/30/2024 - SUMAtriptan (IMITREX) 50 mg tablet Take 1 tablet by mouth as needed for migraine headache (see administration instructions). May repeat dose after 2 hours if needed. Maximum daily dose is 200 mg per day. - FLUoxetine (PROZAC) 20 mg capsule Take 1 capsule by mouth once daily. Problem List As Of Date 11/30/2024 Noted Resolved Acne vulgaris [L70.0] 08/18/2015 Mild persistent asthma without complication [J4*09/27/2016 Flat foot [M21.40] 07/20/2017 Influenza vaccine refused [Z28.21] 07/20/2017 Depression [F32.A] 08/04/2021 Generalized anxiety disorder [F41.1] 08/04/2021 Other instructions from your clinician: The most commonly used are magnesium 400 [...] help reduce the frequency of your migraines. Prescriptions ordered this encounter Disp Refills Start End SUMATRIPTAN 50 MG TABLET 9 ta* 3 11/30/2024 Route: ORAL Sig: Take 1 tablet by mouth as needed for migraine headache (see administration instructions). May repeat dose after 2 hours if needed. Maximum daily dose is 200 mg per day. Disposition: Return if symptoms worsen or fail to improve. Follow-up and Disposition History for Encounter Date Provider Department Center 11/30/2024 [id number] MUSE [facility] Encounter Status:Closed by VERONICA MUSE on 11/30/24 PROGRESS Observed: 11/22/2024 8:13 AM Status: COMPLETED Source: [facility] HNO ID: [id number] Author: MAXINE ELLIS APRN.DRAFTER CONSTRUCTION Service: ? Author Type: Nurse Practitioner Type: Progress Notes Filed: 11/22/2024 08:14 Note Text: Patient did not log in for her virtual appointment with the provider. BACTERIA UR CULT Observed: 11/06/2024 9:34 AM Status: F Source: [facility] ORGANISM ID: 1 10,000 -<50,000 CFU/ml Normal urogenital johnathan Performed By: #### 630-4 ### # [facility] CLIA [id number] [address] [place] [address] [place] [address] [place] CRISTEL/TRICHOMONAS NAAT Collected: 9:34 AM Status: F Source: [facility] Order Comment: Specimen Type : SWAB Ordering Facility: [facility] Address: [address] [place] [address] TYPE CODE TESTS RESULT OUT OF RANGE REFERENCE UNITS LAB 39322-7(LOINC ) Cristel DNA Vag Ql REYNALDO+probe Not detected Not detected Result Comment: The Cristel species group target includes C. albicans, C. tropicalis, C. parapsilosis, and C. dubliniensis. LAB 40058-3(LOINC ) C glabrata RNA Vag Ql REYNALDO+probe Not detected Not detected LAB 21139-0(LOINC ) T vaginalis DNA Spec Ql REYNALDO+probe Not detected Not detected Performed By: #### BVAMP, CV TV #### [facility] CLIA [id number] [address] [place] [address] BACTERIAL VAGINOSIS NAAT Collected: 9:34 AM Status: F Source: [facility] Order Comment: Specimen Type : SWAB Ordering Facility: [facility] Address: [address] [place] [address] TYPE CODE TESTS RESULT OUT OF RANGE REFERENCE UNITS LAB 69337-2([facility]) BV bacteria rRNA Vag Ql REYNALDO+probe Not detected Not detected Performed By: #### BVAMP, CV TV #### [facility] CLIA [id number] [address] [place] [address] LO PROGRESS Observed: 11/06/2024 9:04 AM Status: COMPLETED Source: [facility] HNO ID: [id number] Author: JAMAL CORTEZ APRN.DRAFTER CONSTRUCTION Service: ? Author Type: Nurse Practitioner Type: [...] Maternal Grandmother Cervical Cancer Maternal Grandmother other (PR) Maternal Grandfather 49 other (depression and anxiety) [...] of care. This note was generated using Kwaab software. It may contain errors in wording, punctuation, or spelling. Jamal Cortez APRN.DRAFTER CONSTRUCTION CNOV Observed: 11/06/2024 8:45 AM Status: COMPLETED Source: [facility] Office Visit (WSTR) SHAWANDA BRINK ([id number]) 1 F Date Time Provider Department 11/06/24 8:45 AM JAMAL CORTEZ [facility] During your visit today, we recorded the following information about you: Temperature Pulse Respiration Blood pressure 98.1 degrees 72/minute 16/minute 120/76 Weight 79.2 kg Jamal Cortez, LAVELL.DRAFTER CONSTRUCTION 11/06/2024 9:31 AM Signed Subjective HPI Nontoxic-appearing [...] Maternal Grandmother Cervical Cancer Maternal Grandmother other (PR) Maternal Grandfather 49 other (depression and anxiety) [...] of care. This note was generated using Kwaab software. It may contain errors in wording, punctuation, or spelling. Jamal Cortez APRN.DRAFTER CONSTRUCTION Allergies As of Date: 11/06/2024 Noted Allergy Reaction CELEXA (CITALOPRAM) 03/21/2024 14 - Other: See Comments Comments: Tunnel vision LEXAPRO (ESCITALOPRAM) 03/21/2024 2 - Rash Date Reviewed: 11/06/2024 Reviewed by: Jamal Cortez APRN.DRAFTER CONSTRUCTION - Fully Assessed Reason for Visit: Urinary Frequency [1086] Cmt: urgency and low back pain, requesting hcg- Primary Visit Diagnosis:Urinary frequency [R35.0] Other Visit Diagnosis:Low back pain with sciatica, sciatica laterality unspecified, unspecified back pain laterality, unspecified chronicity [M54.40] Order(s):UA DIP, URINE (POC) [4762901] Order #: [id number]. #:[id number] HCG QUAL UR B/O [0012934] Order #: [id number] BACTERIAL CULTURE, URINE [SQURCUL] Order #: [id number]. #:[id number] UA DIP,URINE HCG (POC) [4500927] Order #: [id number]. #:[id number] CRISTEL/TRICHOMONAS NAAT [SQCVTV] Order #: [id number]. #:[id number] BACTERIAL VAGINOSIS NAAT [SQBVAMP] Order #: [id number]. #:[id number] Prescriptions as of 11/06/2024 - FLUoxetine (PROZAC) 20 mg capsule Take 1 capsule by mouth once daily. Problem List As Of Date 11/06/2024 Noted Resolved Acne vulgaris [L70.0] 08/18/2015 Mild persistent asthma without complication [J4*09/27/2016 Flat foot [M21.40] 07/20/2017 Influenza vaccine refused [Z28.21] 07/20/2017 Depression [F32.A] 08/04/2021 Generalized anxiety disorder [F41.1] 08/04/2021 Level of Service: OFFICE/OUTPATIENT ESTABLISHED LOW MDM 20 MIN [92121] Encounter Status:Closed by JAMAL CORTEZ on 11/06/24 PROGRESS Observed: 11/01/2024 9:04 AM Status: COMPLETED Source: [facility] HNO ID: [id number] Author: ?, ?, ? Service: ? Author Type: LICENSED NURSE Type: Progress Notes Filed: 11/01/2024 09:05 Note Text: Patient presents for Hepatitis B vaccine. Denies any problems at this time. Tolerated injection well. Meenakshi Spangler LPN CNNURSE Observed: 11/01/2024 8:45 AM Status: COMPLETED Source: [facility] Nurse Visit (FAMPWS) SHAWANDA [id number]) 1 F Date Time Provider Department 11/01/24 8:45 AM PR NURSE DON During your visit today, we recorded the [...] Encounter Status:Closed by MEENAKSHI SPANGLER on 11/01/24 CNPN Observed: 10/29/2024 12:00 AM Status: COMPLETED Source: [facility] Telephone (PSWSTR) SHAWANDA BRINK ([id number]) 1 F Date Time Provider Department 10/29/24 MAXINE ELLIS PSRORYTR During your visit today, we recorded the following information about you: Queta Mccarty LPN 10/29/2024 2:19 PM Signed Labs scanned to chart for you to review. SHIRA Diaz Nishi J, LAVELL.DRAFTER CONSTRUCTION 10/29/2024 4:07 PM Signed Reviewed lab results. [...] Encounter Status:Closed by QUETA MCCARTY on 10/30/24 SUSANAN Observed: 10/23/2024 12:00 AM Status: COMPLETED Source: [facility]AW[facility]INK ([id number]) 1 F Date Time Provider Department 10/23/24 ISSAC [facility]ERN[facility]NDEZ [facility] During your visit today, we recorded the following information about you: Antoinette Burgess, RN 10/23/2024 12:12 PM Signed Patient calls and states that she had Hepatitis B titers done at [facility]. Patient reports that titers showed that she [...] 3-DOSE, AGE 20+ YR (ENGERIX-B, RECOMBIVAX HB) [45047YDV] Order #: [id number] HEP B VACCINE, 3-DOSE, AGE 20+ YR (ENGERIX-B, RECOMBIVAX HB) [[id number]] Order #: [id number] FUTURE HEP B VACCINE, 3-DOSE, AGE 20+ YR (ENGERIX-B, RECOMBIVAX HB) [[id number]] Order #: [id number] FUTURE Prescriptions as of 10/24/2024 - FLUoxetine (PROZAC) 20 mg capsule Take 1 capsule by mouth once daily. Problem List As Of Date 10/23/2024 Noted Resolved Acne vulgaris [L70.0] 08/18/2015 Mild persistent asthma without complication [J4*09/27/2016 Flat foot [M21.40] 07/20/2017 Influenza vaccine refused [Z28.21] 07/20/2017 Depression [F32.A] 08/04/2021 Generalized anxiety disorder [F41.1] 08/04/2021 Encounter Status:Closed by CAITLIN HAN on 10/24/24 PROGRESS Observed: 10/18/2024 8:11 AM Status: COMPLETED Source: [facility] HNO ID: [id number] Author: MAXINE ELLIS APRN.DRAFTER CONSTRUCTION Service: ? Author Type: Nurse Practitioner Type: [...] visit. 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 Complete the CMP lab work [...] in the past month. [facility] Encouraged to reach out to them again to schedule an appointment. She shares that she has completed some blood work at [facility] and will be able to share those [...] DATE: October 18, 2024 TIME: 8:12 AM OCC (LAB) Collected: 1:15 PM Status: F Source: [facility] MAIN TYPE CODE TESTS RESULT OUT OF RANGE REFERENCE UNITS LAB OCC(LOINC) Occult Blood Fecal Negative Negative Result Comment: This test ut ilizes the guaiac fecal blood method, which detects peroxidase activity (heme) indicating bleeding from stomach, small intestine, or large intestine. If bleeding from either upper or lower gastrointestinal tract is a clinical consideration, the [facility] recommends the use of both the guaiac fecal blood test and the Immunochemical fecal blood test. Performed By: #### OCC #### [place] [address] CMP Collected: 10/09/2024 8:59 AM Status: F Source: [facility] MAIN TYPE CODE TESTS RESULT OUT OF RANGE REFERENCE UNITS LAB GLU(LOINC) Glucose Level 92 70-110 mg/dL LAB NA(LOINC) Sodium Level 141 136-145 mEq/L LAB K(LOINC) Potassium Level 4.3 3.5-5.0 mEq/L LAB CL(LOINC) Chloride 106 98-110 mEq/L LAB CO2(LOINC) CO2 30 22-32 mEq/L LAB EBAL(LOINC) Electrolyte Balance 5.0 4.0-15.0 mEq/L LAB BUN(LOINC) BUN 9.0 8.0-22.0 mg/dL LAB CRE(LOINC) Creatinine Lvl (s) 0.70 0.50-1.20 mg/dL Result Comment: Testing perf ormed on [email or web address] analyzer using enzymatic creatinine methodology. LAB BC(LOINC) BUN/Creatinine Ratio 12.9 10.0-22.0 ratio LAB CA(LOINC) Calcium Lvl 9.8 8.7-10.4 mg/dL LAB PROT(LOINC) Total Protein 8.2 5.7-8.2 G/dL LAB ALB(LOINC) Albumin Level 4.2 3.2-4.8 G/dL LAB GLB(LOINC) Globulin 4.0 High 1.5-3.8 G/dL LAB AG(LOINC) A/G Ratio 1.0 0.9-1.6 ratio LAB BILT(LOINC) Bili Total 0.50 0.20-1.20 mg/dL Result Comment: Use of this assay is not recommended for patients undergoing treatment with eltrombopag due to the potential for falsely elevated results. LAB AP(LOINC) Alk Phos 111 38-126 U/L LAB AST(LOINC) AST/SGOT 11 8-34 U/L LAB ALT(LOINC) ALT/SGPT 12 10-49 U/L Performed By: #### LIPID, CB C, ANEU, GFR, ADIFF, CMP, HCV1 #### [address] [address] .GFR Collected: 10/09/2024 8:59 AM Status: F Source: [facility] MAIN TYPE CODE TESTS RESULT OUT OF RANGE REFERENCE UNITS LAB eGFR(LOINC) Estimated Glomerular Filtration Rate >120 ml/min/1. 73sqm Result Comment: Stages of Chronic Kidney Disease [...] calculate the eGFR results. Performed By: #### LIPID, CB C, ANEU, GFR, ADIFF, CMP, HCV1 #### [place] [address] LIPID Collected: 10/09/2024 8:59 AM Status: F Source: [facility] MAIN TYPE CODE TESTS RESULT OUT OF RANGE REFERENCE UNITS LAB CHOL(LOINC) Cholesterol 112 50-199 mg/dL Result Comment: Cholesterol Reference Interval: Less than 200 Desirable 200-239 Borderline high risk 240 and above High risk LAB TRIG(LOINC) Triglycerides 78 3-149 mg/dL LAB HD(LOINC) HDL Cholesterol 38 Low 40-59 mg/dL LAB LDL(LOINC) LDL Cholesterol 58 0-129 mg/dL Performed By: #### LIPID, CB C, ANEU, GFR, ADIFF, CMP, HCV1 #### [place] [address] HCV Collected: 8:59 AM Status: F Source: [facility] MAIN TYPE CODE TESTS RESULT OUT OF RANGE REFERENCE UNITS LAB HCV(LOINC) Hep C Ab Non-Reactive Non-Reactive LAB HCV1(LOINC) Hep C Ab Int Result Comment: Nonreactive: Samples with a value < 0.80 are considered nonreactive (negative) for antibodies to HCV. A negative test result does not exclude the possibility of exposure to or infection with HCV. HCV antibodies may be undetectable in some stages of the infection and in some clinical conditions. See Interp Performed By: #### LIPID, CB C, ANEU, GFR, ADIFF, CMP, HCV1 #### [address] [address] CBC Collected: 8:59 AM Status: F Source: [facility] MAIN TYPE CODE TESTS RESULT OUT OF RANGE REFERENCE UNITS LAB WBC(LOINC) WBC 6.7 4.5-10.8 10 3/mcL LAB RBCCT(LOINC) RBC 4.87 4.10-5.30 10 6/mcL LAB HGB(LOINC) Hgb 14.2 12.0-16.0 G/dL LAB HCT(LOINC) Hct 42.3 34.0-46.0 % LAB MCV(LOINC) MCV 86.9 80.0-99.0 fL LAB MCH(LOINC) MCH 29.2 27.0-33.0 pg LAB MCHC(LOINC) MCHC 33.6 32.0-36.0 G/dL LAB RDW(LOINC) RDW 13.1 11.5-15.5 % LAB PLT(LOINC) Platelet 297 150-450 10 3/mcL LAB MPV(LOINC) MPV 9.2 6.6-10.5 fL Performed By: #### LIPID, CB C, ANEU, GFR, ADIFF, CMP, HCV1 #### [address] [address] .AUTO DIFF Collected: 10/09/2024 8:59 AM Status: F Source: [facility] MAIN TYPE CODE TESTS RESULT OUT OF RANGE REFERENCE UNITS LAB RAMSEY(LOINC) Neutrophil % 70.4 50.0-75.0 % LAB LYM(LOINC) Lymphocyte % 19.9 Low 20.0-40.0 % LAB MON(LOINC) Monocyte % 5.8 2.0-13.0 % LAB EO(LOINC) Eosinophil % 3.1 0.0-6.0 % LAB BAS(LOINC) Basophil % 0.8 0.0-2.5 % LAB ABLYM(LOINC) Lymphocyte, Absolute 1.3 0.9-4.3 10 3/mcL LAB YOLA(LOINC) Monocyte, Absolute 0.4 0.1-1.4 10 3/mcL LAB AEOS(LOINC) Eosinophil, Absolute 0.2 0.0-0.7 10 3/mcL LAB ABAS(LOINC) Basophil, Absolute 0.1 0.0-0.3 10 3/mcL Performed By: #### LIPID, CB C, ANEU, GFR, ADIFF, CMP, HCV1 #### [address] [address] .NEUABS Collected: 8:59 AM Status: F Source: [facility] MAIN TYPE CODE TESTS RESULT OUT OF RANGE REFERENCE UNITS LAB ANEU(LOINC) Neutrophil, Absolute 4.7 2.3-8.1 10 3/mcL Performed By: #### LIPID, CB C, ANEU, GFR, ADIFF, CMP, HCV1 #### [address] [address] PROGRESS Observed: 09/25/2024 8:53 AM Status: COMPLETED Source: [facility] HNO ID: [id number] Author: MAXINE ELLIS APRN.DRAFTER CONSTRUCTION Service: ? Author Type: Nurse Practitioner Type: Progress Notes Filed: 09/25/2024 08:54 Note Text: Patient cancelled the appointment right before her appointment with the provider. FLUABV+SARS-COV-2+RSV PNL RE SP REYNALDO+PROBE Observed: 09/12/2024 4:51 PM Status: F Source: [facility] SARS-COV-2 (AGENT OF COVID-1 9) RNA: Not detectedINFLUENZA A RNA: Not detectedINFLUENZA B RNA: Not detectedRESPIRATORY SYNCYTIAL VIRUS (RSV) RNA: Not detected Performed By: #### [id number] # ### [facility] CLIA [id number] [address] [place] [address] OF LO CNOV Observed: 09/12/2024 4:45 PM Status: COMPLETED Source: [facility] Office Visit (WSTR) SHAWANDA BRINK ([id number]) 1 F Date Time Provider Department 09/12/24 4:45 PM BHARAT MOSHER [facility] During your visit today, we recorded [...] AND RSV PCR, ROUTINE [SQCVFLRS] Order #: [id number]. #:[id number] Prescriptions as of 09/12/2024 - sertraline (ZOLOFT) 100 mg tablet Take 1 tablet by mouth once daily. Problem List As Of Date 09/12/2024 Noted Resolved Acne vulgaris [L70.0] 08/18/2015 Mild persistent asthma without complication [J4*09/27/2016 Flat foot [M21.40] 07/20/2017 Influenza vaccine refused [Z28.21] 07/20/2017 Depression [F32.A] 08/04/2021 Generalized anxiety disorder [F41.1] 08/04/2021 Level of Service: OFFICE/OUTPATIENT ESTABLISHED LOW MDM 20 MIN [39184] Letter Text Encounter Status:Closed by BHARAT MOSHER on 09/12/24 PROGRESS Observed: 09/12/2024 4:23 PM Status: COMPLETED Source: [facility] ID: [id number] Author: BHARAT MOSHER MD Service: ? 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 Bharat Mosher MD PROGRESS Observed: 08/14/2024 8:46 AM Status: COMPLETED Source: [facility] HNO ID: [id number] Author: MAXINE ELLIS APRN.DRAFTER CONSTRUCTION Service: ? Author Type: Nurse Practitioner Type: [...] visit. Either the patient or their legal sales representative printing paper has been informed of the risks and [...] she experienced some difficulties logging in through [employer] for the appointment. She is 6 months [...] job in August. 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 Complete the CMP lab work [...] DATE: August 14, 2024 TIME: 8:47 AM HBSAB Collected: 12:00 PM Status: F Source: [facility] MAIN TYPE CODE TESTS RESULT OUT OF RANGE REFERENCE UNITS LAB HBSAB(LOINC) Hep B Surf Ab <3.1 Low >=10.0 mIU/mL Result Comment: 0 to < 10.0 mIU/mL [...] WHO International Reference Preparation. Performed By: #### HBSAB ### # [place] [address] MARS Observed: 07/26/2024 12:00 AM Status: COMPLETED Source: [facility] Telephone (PSWSTR) SHAWANDA BRINK ([id number]) 1 F Date Time Provider Department 07/26/24 MAXINE ELLIS PSWSTR During your visit today, we recorded the following information about you: Queat Mccarty LPN 07/26/2024 2:16 PM Signed Call placed to scheduled VV for patient so refills can be sent to [facility] for Zoloft. VV on 08/14/2024 @ 8:30 Zoloft 50 mg 1 tab PO every day SHIRA Diaz Nishi J, SERVICES PROGRAM MANAGER.DRAFTER CONSTRUCTION 07/26/2024 2:21 PM Signed Noted scheduled follow [...] Encounter Status:Closed by MAXINE ELLIS on 07/26/24 PROGRESS Observed: 06/28/2024 11:27 AM Status: COMPLETED Source: [facility] HNO ID: [id number] Author: MAXINE ELLIS APRN.SUSANA Service: ? Author Type: Nurse Practitioner Type: Progress Notes Filed: 06/28/2024 11:41 Note Text: Patient did not log in for her virtual appointment with the provider today. She did not warp picker her phone when she was contacted prior to the appointment time. MARS Observed: 06/05/2024 12:00 AM Status: COMPLETED Source: [facility] Telephone (IsaiPWS) SHAWANDA BRINK ([id number]) 1 F Date Time Provider Department 06/05/24 ISSAC FERNÁNDEZPWS During your visit today, we recorded the following information about you: Tessy Prabhakar LPN 06/05/2024 4:02 PM Signed Pt states her breast is tender, swollen AND painful, she is beginning to develop a rash. She has not checked her temp. Pt is concerned that she has mastitis. Pt is breast feeding. She has tried to contact her BUS REPAIR SUPERVISOR but they have not returned her call. [...] Encounter Status:Closed by TESSY PRABHAKAR on 06/05/24 PROGRESS Observed: 05/17/2024 10:06 AM Status: COMPLETED Source: [facility] ID: [id number] Author: MAXINE ELLIS APRN.DRAFTER CONSTRUCTION Service: ? Author Type: Nurse Practitioner Type: Progress Notes Filed: 05/23/2024 23:13 Note Text: PSYC NEW - PSYCHIATRIC ASSESSMENT PATIENT: Shawanda Brink DATE: May 17, 2024 Patient was seen for an initial evaluation. I have communicated my name and active licensure. The patient's identity and physical location were verified at the time of this visit. Either the patient or their legal sales representative printing paper has been informed of the risks and [...] 2 months. 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 She completed High school. She described her childhood as loving and supportive. My early teenage years were rough when my parents were going through a divorce. Patient states that her parents and stepparents are very supportive and helpful to her. The patient lives [facility] and her two children. Service: None Legal: Pt. denied any past legal history Spirituality/Restorationism: Hindu FAMILY PSYCHIATRIC HISTORY: Mother-Major Depressive Disorder Dad- [...] which included preparing to see the patient, [id number] patient care, completing clinical documentation, obtaining and/or reviewing separately obtained history, counseling and educating the patient/family/caregiver, ordering medications, tests, or procedures, communicating with other HCPs (not separately reported), independently interpreting results (not separately reported), and communicating results to the patient/family/caregiver. ADD ON PSYCHOTHERAPY CODE : No SIGNATURE: Maxine Ellis APRN.SUSANA PATIENT NAME: Shawanda Brink DATE: May 17, 2024 TIME: 10:06 AM XR CHEST 2V FRONTAL/LAT Observed: 2023 11:56 AM Status: F Source: [facility] * * *Final Report* * * DATE [...] tissues: Unremarkable. IMPRESSION: No acute radiographic abnormality. Accounts Specialist: VLADIMIR Transcribe Date/Time: May 14 2024 12:07P Dictated by : ALEX CASTRO MD This examination was interpreted and the report reviewed and electronically signed by: ALEX CASTRO MD on May 14 2024 12:07PM EST [id number] PROGRESS Observed: 05/14/2024 11:40 AM Status: COMPLETED Source: [facility] HNO ID: [id number] Author: SANTY COKER RT(R) Service: Radiology Author Type: Technologist Type: [...] PATIENT PRESENTS WITH AN IMPLANTABLE OR ATTACHED CERTIFIED NURSE PRACTITIONER: No RADIOLOGY DEPARTMENT: General X-ray: Exam(s) Completed: Chest X-Ray PERIPHERAL IV DATA: Not applicable SIGNED BY: RT Miguel(R) May 14, 2024 11:37 AM PROGRESS Observed: 05/14/2024 11:20 AM Status: COMPLETED Source: [facility] HNO ID: [id number] Author: SANTOS SOLER APRN.DRAFTER CONSTRUCTION Service: ? Author Type: Nurse Practitioner Type: [...] Maternal Grandmother Cervical Cancer Maternal Grandmother other (PR) Maternal Grandfather 49 other (depression and anxiety) [...] abnormality. Dictated by : MD Santos BURGOS APRN.DRAFTER CONSTRUCTION CNOV Observed: 05/14/2024 11:15 AM Status: COMPLETED Source: [facility] Office Visit (WSTR) SHAWANDA BRINK ([id number]) 03 F Date Time Provider Department 05/14/24 11:15 AM SANTOS SOLER [facility] [place] During your visit today, we recorded the following information about you: Temperature Pulse Respiration Blood pressure 97.9 degrees 97/minute 18/minute 110/78 Weight 83.8 kg Santos Soler APRN.DRAFTER CONSTRUCTION 05/14/2024 12:33 PM Signed Subjective HPI HPI Shawanda Sawyerpooja is a 18 year old female who [...] Maternal Grandmother Cervical Cancer Maternal Grandmother other (PR) Maternal Grandfather 49 other (depression and anxiety) [...] abnormality. Dictated by : MD Santos BURGOS APRN.DRAFTER CONSTRUCTION Allergies As of Date: 05/14/2024 Noted Allergy Reaction CELEXA (CITALOPRAM) 03/21/2024 14 - Other: See Comments Comments: Tunnel vision LEXAPRO (ESCITALOPRAM) 03/21/2024 2 - Rash Date Reviewed: 05/14/2024 Reviewed by: Jes Acosta LPN - Fully Assessed Reason for Visit: Cough [28] Cmt: Cough, congestion, fever, AKERS and sinus x 8 days Primary Visit Diagnosis:Sinobronchitis [J32.9, J40] Other Visit Diagnosis:Acute cough [R05.1] Order(s):XR CHEST 2V FRONTAL/LAT [[id number]] Order #: [id number]. #:[id number] amoxicillin-clavulanate potassium (AUGMENTIN) 875-125 mg per tabletTake [...] wheezing/shortness of breath. Administer using a spacer. Problem List As Of Date 05/14/2024 Noted Resolved Acne vulgaris [L70.0] 08/18/2015 Mild persistent asthma without complication [J4*09/27/2016 Flat foot [M21.40] 07/20/2017 Influenza vaccine refused [Z28.21] 07/20/2017 Depression [F32.A] 08/04/2021 Generalized anxiety disorder [F41.1] 08/04/2021 Prescriptions ordered this encounter Disp Refills Start End AMOXICILLIN 875 MG-POTASSIUM CLAVULA* 14 t* 0 05/14/2024 05/21/2024 Route: ORAL Sig: Take 1 tablet by mouth two times a day for 7 days. Encounter Status:Closed by SANTOS SOLER on 05/14/24 ALLERGIES DATE TYPE / CODE NAME / CODE REACTION SEVERITY SOURCE 03/21/2024 DRUG INGREDI/[id number] (SNOMED CT) CITALOPRAM OTHER: SEE C [facility] 03/21/2024 DRUG INGREDI/[id number] (SNOMED CT) ESCITALOPRAM RASH [facility] ENCOUNTERS ADMIT/DISCHARGE ACCOUNT NUMBER ADMITTING ENCOUNTER CLASS LOCATION SOURCE 04/12/2025 [id number] [facility]/ 5 [id number] [facility]/06/2025/ 5 [id number] [facility]/28[facility]/ 5 [id number] [facility]WOL[facility] 03/28/2025/ 5 [id number] [facility] 03/22/2025/ 5 [id number] [facility] 03[facility]21/2025/ 5 [id number] [facility]:PSWSTR [facility] 03/20/2025/ 5 [id number] [facility] 03/19/2025/ 5 [id number] [facility] 03/14/2025/ 5 [id number] [facility]/ 5 [id number] [facility] 03[facility]03/2025/ 5 [id number] [facility] 02/22/2025 [id number] [facility] 02/18/2025/ 5 [id number] [facility]:WOL[facility] 02/14/2025/ 5 [id number] [facility]:WOL[facility] 02/14/2025/ 5 [id number] [facility] 02/10/2025/ 5 [id number] [facility] 02/07/2025/ 5 [id number] [facility] 01/31/2025 [id number] [facility] 01/25/[facility]/ 5 [id number] [facility] 12/28/2024/ 5 [id number] [facility]:WOLB [facility] 12/27/2024/ 5 [id number] [facility] 11/30/2024/ 5 [id number] [facility] 11/22/2024/ 5 [id number] [facility]/06/[facility]/ 5 [id number] [facility]:WOUC [facility] 11/01/2024/ 5 [id number] [facility]:WOFM [facility] 10/18/2024/ 5 [id number] [facility] ing:PSWSTR [facility] 10/09/2024/ 5 [id number] Ambulatory ABuilding:DPO B [facility] 10/08/2024/ 5 [id number] Ambulatory ABuilding:UCW A [facility] 09/12/2024/ 5 [id number] [facility]:W[facility] 08/14/2024/ 5 [id number] Amb[facility] ing:PSWSTR [facility] 06/28/2024/ 4 [id number] [facility]:PSWSTR [facility] 05/17/2024/ 4 [id number] [facility] ing:PSWSTR [facility] 05/14/2024/ 4 [id number] [facility]:WORG [facility] 05/14/2024/ 4 [id number] Amb[facility]:W[facility]C [facility] PAYERS ENCOUNTER GUARANTOR PAYER SUBSCRIBER SOURCE 04/12/2025 Primary Insurance:CIGNA OAPPolicy Number: [id number] Date:1647-04-27Yfax Name:[place] SHAWANDA ANGELES: [id number] [address]RE[address] ROSA [address] [place] [id number] [place] [address] 04/07/2025 Primary Insurance:CIGNA OAPPolicy Number: [id number] Date:5769-17-87Xtzm Name:[place] SHAWANDA HOWELLB: [id number] [address] 04/06/2025 Primary Insurance:CIGNA OAPPolicy Number: [id number] Date:1417-12-87Vdwr Name:Loraine SAWYERESDOB: [id number] [address] [place] [address] 03/28/2025 Primary Insurance:CIGNA OAPPolicy Number: [id number] Date:6217-05-32Srij Name:Loraine SAWYERESDOB: [id number] [address] [place] [address] 03/28/2025 Primary Insurance:CIGNA OAPPolicy Number: [id number] Date:1456-24-88Aadx Name:Loraine SAWYERESDOB: [id number] [facility] [address] [place] [address] 03/22/2025 Primary Insurance:CIGNA OAPPolicy Number: [id number] Date:0090-03-44Fkbf Name:Loraine SAWYERESDOB: [id number] [address]GÓMEZ [address] [place] [address] 03/21/2025 Primary Insurance:CIGNA OAPPolicy Number: [id number] Date:1724-72-09Gnrn Name:Loraine SAWYERESDOB: [id number] [address]RE[address] DRGÓMEZ [address] [place] [address] 03/20/2025 Primary Insurance:CIGNA OAPPolicy Number: [id number] Date:0301-04-09Xcjy Name:Loraine SAWYERESDOB: [id number] FREEDOM ROSA [address] [place] [address] 03/19/2025 Primary Insurance:CIGNA OAPPolicy Number: [id number] Date:4005-77-89Swuc Name:Loraine SAWYERESDOB: [id number] [address] [place] [phone] [place] [address] 03/14/2025 Primary Insurance:CIGNA OAPPolicy Number: [id number] Date:2615-23-41Ygbp Name:Loraine SAWYERESDOB: [id number] [address] [place] [phone] [place] [address] 03/05/2025 Primary Insurance:CIGNA OAPPolicy Number: [id number] Date:5869-50-92Ypbm Name:Loraine SAWYERESDOB: [id number] [address] [place] [phone] [place] [address] 03/03/2025 Primary Insurance:CIGNA OAPPolicy Number: [id number] Date:3059-25-08Xnbv Name:Loraine SAWYERESDOB: [id number] [address] [place] [phone] [place] [address] 02/22/2025 Primary Insurance:CIGNA OAPPolicy Number: [id number] Date:5470-37-29Wdfw Name:Loraine SAWYERESDOB: [id number] [address] [place] [id number] [place] [address] 02/18/2025 Primary Insurance:CIGNA OAPPolicy Number: [id number] Date:5567-09-66Tvmi Name:Loraine SAWYERESDOB: [id number] [address] [place] [phone] [place] [address] 02/14/2025 Primary Insurance:CIGNA OAPPolicy Number: [id number] Date:2604-63-54Lsiv Name:Loraine SAWYERESDOB: [id number] [address] [place] [phone] [place] [address] 02/14/2025 Primary Insurance:CIGNA OAPPolicy Number: [id number] Date:5934-60-52Ekkt Name:Loraine BRINKDOB: [id number] [address] [place] [phone] [place] [address] 02/10/2025 Primary Insurance:CIGNA OAPPolicy Number: [id number] Date:2342-35-26Wsqj Name:Loraine SAWYERESDOB: [id number] [address] [place] [phone] [place] [address] 02/07/2025 Primary Insurance:CIGNA OAPPolicy Number: [id number] Date:2164-95-87Vare Name:Loraine BRINKDOB: [id number] [address] [place] [phone] [place] [address] 01/31/2025 Primary Insurance:CIGNA OAPPolicy Number: [id number] Date:2139-97-56Oadn Name:Loraine BRINKDOB: 2025 [address] [place] [phone] [place] [address] 01/25/2025 Primary Insurance:CIGNA OAPPolicy Number: [id number] Date:8760-33-69Flrx Name:Loraine BRINKDOB: [id number] [address] [place] [phone] [place] [address] 12/28/2024 Primary Insurance:CIGNA OAPPolicy Number: [id number] Date:3197-28-85Zyhs Name:Loraine SAWYERESDOB: [id number] [address] [place] [phone] [place] [address] 12/27/2024 Primary Insurance:CIGNA OAPPolicy Number: [id number] Date:5404-14-67Nbws Name:Loraine BRINKDOB: [id number] [address] [place] [phone] [place] [address] 11/30/2024 Primary Insurance:CIGNA OAPPolicy Number: [id number] Date:3140-93-97Fsas Name:Loraine SAWYERESDOB: [id number] [address] [place] [phone] [place] [address] 11/22/2024 Primary Insurance:CIGNA OAPPolicy Number: [id number] Date:6593-90-33Krdm Name:Loraine SAWYERESDOB: [id number] [address] [place] [phone] [place] [address] 11/06/2024 Primary Insurance:CIGNA OAPPolicy Number: [id number] Date:4666-09-08Gqvv Name:Loraine SAWYERESDOB: [id number] [address] [place] [address] 11/01/2024 Primary Insurance:CIGNA OAPPolicy Number: [id number] Date:3019-74-42Zwhv Name:Loraine SAWYERESDOB: [id number] [address] [place] [address] 10/18/2024 Primary Insurance:CIGNA OAPPolicy Number: [id number] Date:9032-10-95Fxgp Name:Loraine SAWYERESDOB: [id number] [address] [place] [address] 10/09/2024 SHAWANDA MANGESDOB: [address] MAGAÑA [address] [place] [phone]~[email or web address] : () Primary Insurance:CIGNA INSCOPolicy Number: [id number] Date:6077-05-49Zqfe Name:CPO [address]is [id number], [place] [address]ME: SHAWANDA MANGESDOB: [id number] [place] [phone]: () [facility] 10/08/2024 SHAWANDA MANGPOOJADOB: [address] MAGAÑA [address] [place] [email or web address] : () Primary Insurance:CIGNA INSCOPolicy Number: [id number] Date:6904-83-78Toiz Name:CPO SOLIS [id number] [address]RS: MARILOU MANGESDOB: [id number] MAGAÑA [address] [place] [phone]: () () [facility] 09/12/2024 Primary Insurance:CIGNA OAPPolicy Number: [id number] Date:6710-01-83Yzkm Name:Loraine Nuñez MANGPOOJADOB: [id number] [address] [place] [address] 08/14/2024 Primary Insurance:CIGNA OAPPolicy Number: [id number] Date:4454-73-25Fadw Name:Loraine Nuñez MANGESDOB: [id number] [address] [place], [place] [phone] [place] [address] 06/28/2024 Primary Insurance:CIGNA OAPPolicy Number: [id number] Date:4634-12-67Dfbb Name:Loraine Nuñez MANGESDOB: [id number] [address] [place] [address] 05/17/2024 Primary Insurance:CIGNA OAPPolicy Number: [id number] Date:0275-49-12Sipc Name:Loraine BRINKDOB: [id number] [address] [place] [address] 05/14/2024 Primary Insurance:CIGNA OAPPolicy Number: [id number] Date:2885-88-38Zpdq Name:Loraine ANGELES: [id number] [address]A [address] [place] [phone] [facility] 05/14/2024 Primary Insurance:CIGNA OAPPolicy Number: [id number] Date:2355-89-91Xoqx Name:Loraine ANGELES: [id number] [address]A [address] [place] [address] [facility]
[2025-04-13 15:19] VITALS: BP 111/76; PULSE 100; RESP 18; TEMP 37.5; O2SAT 114; BMI 27.8
--- NOTE | 2025-04-13 15:46 | EKG12_ITS ---
Test Reason : PALPS Blood Pressure : */* mmHG Vent. Rate : 89 BPM Atrial Rate : 89 BPM P-R Int : 130 ms QRS Dur : 82 ms QT Int : 354 ms P-R-T Axes : 52 26 46 degrees QTcB Int : 430 ms Normal sinus rhythm Normal ECG Confirmed by STONE SMITH ([id number]), film or videotape editor PEDRO DURHAM ([id number]) on 04/15/2025 8:42:53 AM Referred By: Confirmed By: STONE SMITH
--- NOTE | 2025-04-13 15:48 | EX.ED.DYSGE1 ---
HPI History of Present Illness Chief Complaint: General Illness Informant: patient Narrative Narrative: Patient is a 19-year-old female currently breast-feeding (has a 2-year-old and 1-year-old) presenting with continued fevers episodes of tachycardia and generalized malaise. She states on 03/30 (2 weeks ago) she developed head pressure and fever. She then developed mouth sores the following day and got better after about 3 days. She states her kids had dheu-vzda-drc-mouth. She states started on 04/03 (10 days ago) she started having episodes of tachycardia her heart rate would go up to 130-160 with standing. At rest it is 100 110 bpm. She states this lasted for about 3 days. Since 04/04 she did have an intermittent fevers as high as 101.8 last night but her baseline temperatures been around 99 which she states is high for her. She is very fatigued so much that makes her feel short of breath. She has had some intermittent nausea did have 1 episode of diarrhea yesterday. She states she is having headaches that feel like a lot of pressure especially behind her left ear, her forehead and the back of her head. She notes that yesterday her symptoms resolved with Excedrin and she been feeling better for the past 2 days but then today again developed fevers and not feeling well so she came in. She notes that she is currently breast-feeding and does not have regular periods. Is been taking Tylenol for symptoms and last had a dose an hour and a half prior to arrival. She states that she did have some bug bite recently with rash but she is not sure if she had a tick bite. Has had some intermittent breast pain but it does not feel like mastitis. No other complaints or concerns reported at this time [facility] Medical History Navel cellulitis Former smoker Hx of gestational diabetes in prior , currently Vaginal delivery hemorrhage depression Gestational diabetes Panic disorder Generalized anxiety disorder Bipolar 2 disorder Seasonal allergies Contraception management Anemia due to blood loss, acute hemorrhage macrosomia GBS (group B Streptococcus carrier), +RV culture, currently Gestational diabetes Anxiety Palpitations Supervision of high risk , antepartum Asthma Depression Home Medications ?Medication ?Instructions ?Recorded ?Last Taken ?Type fluticasone propionate 50 1 spray intranasal BID #16 grams 02/08/25 Unknown Rx mcg/actuation nasal spray,suspension loratadine 10 mg tablet (Claritin) 10 mg PO QDAY 04/03/25 Unknown History mupirocin 2 % topical ointment 1 applic topical BID #22 grams 04/03/25 Unknown Rx amitriptyline 25 mg tablet 25 mg PO QHS 04/13/25 Unknown History cephalexin 500 mg capsule 500 mg PO Q6 #28 CAPSULES 04/13/25 Unknown Rx eletriptan 20 mg tablet 20 mg PO PRN PRN migraine 04/13/25 Unknown History propranolol 10 mg tablet 10 mg PO BID 04/13/25 Unknown History Allergy/AdvReac Type Severity Reaction Status Date / Time prochlorperazine (From Allergy Mild anxiety Verified 04/13/25 15:19 Compazine) citalopram (From Celexa) Allergy Other Verified 04/13/25 15:19 escitalopram (From Lexapro) Allergy Other Verified 04/13/25 15:19 Family History Grandmother Cervical cancer, Onset Age: 40 maternal Family history of recurrent miscarriage maternal- 2 miscarriages Grandfather Myocardial infarction Father Heart disease Mother Family history of recurrent miscarriage 2 miscarriages Aunt Family history of recurrent miscarriage Maternal- 2 miscarriages Social History adopted: No household members: significant other and children housing: house number of children: 1 current occupational status: employed current occupation: Will be starting at 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 ) history of recent travel: No ([place]) sexually active: Yes Smoking Status: Former smoker Electronic Cigarette Use: with nicotine how long ago did patient quit smoking: Quit 04/08 alcohol intake: never substance use type: does not use well-balanced diet: daily or most days caffeine: No (ocassional) eating out: 1-3 times/week during the past year weight has: increased > 10 lbs what type of physical activity do you participate in: none jose/sabianism: Gnosticism seatbelt use: always do you feel safe at home: Yes additional social history: Fiance- Joseph Amstutz, Jr.- [employer] ROS ROS ED Constitutional Constitutional ED: Reports chills, fever(s) and sweats; Denies weight loss Eyes Eyes: Denies blurry vision ENT ENT ED: Reports ear pain bilateral (Left worse than right) and sore throat Cardiovascular Cardiovascular: Reports racing heartbeat; Denies chest pain or palpitations Respiratory/Chest Respiratory/Chest: Reports dyspnea; Denies cough or sputum Gastrointestinal Gastrointestinal: Reports diarrhea and nausea; Denies abdominal pain or vomiting Genitourinary Genitourinary ED: Reports urinary frequency; Denies dysuria Musculoskeletal Musculoskeletal: Denies arthralgias, back pain, myalgias or neck pain Integumentary Reports rash Neurologic Neurologic: Reports headache(s); Denies paresthesias or weakness EXAM Physical Exam Const Vital Signs: 04/13/25 15:19 04/13/25 16:23 04/13/25 16:25 Temperature 99.5 F H 99.0 F Temperature Source Oral Oral Pulse Rate 100 98 Respiratory Rate 18 19 H Respiratory Effort Normal Respiratory Pattern Normal Blood Pressure 111/76 111/68 Blood Pressure Mean 87 82 Pulse Ox 114 100 Oxygen Delivery Method Room Air Room Air 04/13/25 17:18 04/13/25 17:23 Temperature 98.6 F Temperature Source Oral Pulse Rate 92 89 Respiratory Rate 16 20 H Respiratory Effort Respiratory Pattern Blood Pressure 111/86 H 111/86 H Blood Pressure Mean 94 94 Pulse Ox 97 98 Oxygen Delivery Method Room Air Room Air Positive well nourished and well developed General Appearance ED: well developed and NAD HEENT Reports TM's clear and moist mucous membranes HEENT Narrative: No redness or tenderness over the mastoids Tympanic Membrane ED: Yes TM's clear Eyes PERRL and EOMs intact bilaterally Eyes Narrative: No photophobia present Neck supple Neck Narrative: No meningeal signs, normal range of motion of the neck General: Negative for tenderness Chest Wall inspection of chest normal and palpation of chest normal Chest Narrative: Chaperoned breast exam performed?erythema, warmth and tenderness of the left lower outer breast consistent with mastitis. No associated lymphangitic streaking. No area of fluctuance or abscess appreciated. Normal areola and nipple. No significant drainage noted from the nipple. Normal right breast Resp normal respiratory effort and clear to auscultation bilaterally Auscultation: Negative for rhonchi or wheezes Cardio regular rhythm and no murmurs Rate: tachycardic GI normal to inspection, nondistended, normoactive bowel sounds and non-tender Back/Spine no CVA tenderness Extremity normal to inspection Neuro oriented x3, CN's II-XII intact bilaterally and no sensory deficits noted Sensorium / Orientation: alert Motor Exam: strength 5/5 throughout; Negative for general weakness Psych mental status grossly normal Skin no rashes or lesions noted and no wounds MDM MDM MDM Narrative Medical decision making narrative: Patient evaluated for recurrent fevers, generalized weakness and recent illness. She had chmm-enck-pgb-mouth 2 weeks ago, some episodes of intermittent tachycardia and now recurrent fevers. Differential is broad including Lyme disease, thyroid dysfunction, mononucleosis, occult infection, endocarditis, myocarditis, electrolyte derangement and recurrent viral illness as well as mastitis. She does not have any meningeal signs the emergency room, photophobia or nuchal rigidity. She has had symptoms for 2 weeks with no other obvious source of infection so I do not think she needs workup for meningitis or CT imaging of the brain. She has a normal neurologic exam. Patient ordered IV fluids and Toradol but declined the Toradol in the emergency room. Initial is a low-grade temperature of 99.5 but took Tylenol an hour and half prior to arrival. Repeat temperatures 98.6. Patient is given IV fluids with some improvement of her heart rate in the ER. Workup is largely reassuring with a normal white blood cell count, normal BMP, TSH and urinalysis is not consistent with infection (consistent is mild contamination). Monospot is negative. She has a very mild transaminitis with an AST of 34, ALT of 42 and alkaline phosphatase of 117. Is mildly above her baseline. Question of this could be from recent viral illness. Lyme titer is sent but pending. Clinically patient has mastitis will be treated for that with Keflex and given first dose in the emergency room. I counseled follow-up for repeat labs for her laboratory abnormalities and will be contacted if her Lyme screen does come back positive and she requires treatment for that. She verbalizes given understand this. Lab Data Attestation: I reviewed the patient's lab results. Labs: Laboratory Results - last 24 hr 04/13/25 16:00 WBC 9.4 RBC 4.08 L Hgb 12.0 Hct 35.8 L MCV 87.7 MCH 29.4 MCHC 33.5 RDW Std Deviation 41.9 RDW Coeff of Smyone 13.5 Plt Count 199 MPV 10.5 Immature Gran % (Auto) 0.200 Neut % (Auto) 41.8 L Lymph % (Auto) 53.6 H Calhoun % (Auto) 3.4 Eos % (Auto) 0.7 Baso % (Auto) 0.3 Absolute Neuts (auto) 3.9 Absolute Lymphs (auto) 5.02 H Nucleated RBC % 0 Reactive Lymphocytes 1+ Smudge Cells RARE Polychromasia RARE Sodium 140 Potassium 3.3 Chloride 105 Carbon Dioxide 25.8 Anion Gap 9 BUN 9 Creatinine 0.62 L Estim Creat Clear Calc 140.97 Est GFR (MDRD) Non-Af 130 BUN/Creatinine Ratio 13.9 Glucose 76 Calcium 8.6 Total Bilirubin 0.51 AST 34 H ALT 42 H Alkaline Phosphatase 117 H Troponin T High Sens < 6 Total Protein 6.7 Albumin 3.9 Globulin 2.8 Albumin/Globulin Ratio 1.4 TSH 0.614 Urine Color Yellow Urine Clarity Clear Urine pH 6.0 Ur Specific Lafferty 1.015 Urine Protein 30 H Urine Glucose (UA) Normal Urine Ketones Negative Urine Occult Blood Negative Urine Nitrite Negative Urine Bilirubin Negative Urine Urobilinogen 4 H Ur Leukocyte Esterase Negative Urine RBC 0-5 SEEN Urine WBC 5-10 SEEN Ur Squamous Epith Cells 0-5 SEEN Urine Bacteria 1+ Urine Mucus 1+ Urine Test Negative Monoscreen Negative Rhythm Strip Rhythm Strip: Sinus Rhythm Rate: 89 Ectopy: None EKG Initial EKG: Attestation: I personally reviewed and interpreted this EKG as follows: Interpretation: Sinus Rhythm Comments: Normal sinus rhythm at 89 bpm Normal axis Normal intervals Normal ST segment Prior EKG tracings: available for review Prior: Unchanged Discharge Plan Triage Chief Complaint: General Illness ED Provider: Fay Olvera Dx/Rx/DC Orders Clinical Impression: Mastitis, Transaminitis Instructions: ED Mastitis Prescriptions: New cephalexin 500 mg capsule 500 mg PO Q6 Qty: 28 0RF No Action loratadine [Claritin] 10 mg tablet 10 mg PO QDAY mupirocin 2 % ointment 1 applic topical BID Qty: 22 0RF Rx Instructions: for 10 days; if no improvement then f/u w/ primary care provider fluticasone propionate 50 mcg/actuation spray,suspension 1 spray intranasal BID Qty: 16 0RF Rx Instructions: administer 1 spray into each nostril propranolol 10 mg tablet 10 mg PO BID Patient Comments: pt has not started med yet eletriptan 20 mg tablet 20 mg PO PRN PRN (Reason: migraine) amitriptyline 25 mg tablet 25 mg PO QHS Primary Care Provider: Veronica Muse NP Referrals: Veronica Muse NP, [facility] [Primary Care Provider, Medical] Activity Restrictions/Additional Instructions: Please follow with your family doctor for recheck of your liver enzymes (AST, ALT and alkaline phosphatase) which are minimally elevated today. It is possible this could be associated with your recent viral illness. Your hemoglobin is normal which makes mildly low RBC and HCT counts less worrisome. As we discussed please follow-up with your family doctor for repeat of your labs in about a month. Lyme test was sent off but will take a couple days to come back. You will be contacted is positive and you require treatment for this. In the meantime you do have mastitis of your left breast and concern on antibiotics for this. Please take the entire course of antibiotics. Continue to nurse/breast-feed from that breast is expression of milk is good for healing of mastitis and the milk itself is safe for the child. Alternate ibuprofen and Tylenol for fever and pain control. Apply warm compresses to your breast and massage to the area as tolerated to help break up any clogged ducts Print Language: Uzbek Disposition Disposition: Home, Self Care
[2025-04-13] MEDS: 0.9% Normal Saline (1000mL) 1,000 ML 1000 ML IV (16:03)
[2025-04-13 16:21] LABS: Color, Urine Yellow (Yellow); Glucose, Dipstick Normal (Normal); Ketone-Dipstick Negative (Negative); Leukocyte Esterase-Dipstick Negative /ul (Negative); Nitrite-Dipstick Negative (Negative); Occult Blood-Urine Negative /ul (Negative); Protein-Dipstick 30 mg/dl (Negative); Specific Gravity, Urine 1.015 (1.002-1.030); Urine Bilirubin Dipstick Negative (Negative)
[2025-04-13 16:22] LABS: Internal QC Validated? YES +Cl - CLEAR BKGD; Record Kit Lot#,Urine Preg 0000964736
[2025-04-13 16:23] VITALS: BP 111/68; PULSE 98; RESP 19; TEMP 37.2; O2SAT 100
[2025-04-13 16:23] LABS: Pregnancy, Urine Negative Negative
[2025-04-13 16:25] LABS: Hematocrit 35.8 % (37-47); Hemoglobin 12.0 g/dL (12.0-15.0); Immature Granulocytes Count 0.020 X10^3/uL (0.0-0.0); Mean Corp Hgb Conc 33.5 g/dL (32-36); Mean Corpuscular Volume 87.7 fL (81-99); Mean Platelet Vol. 10.5 fl (6.2-12.0); NRBC Flagged by Analyzer 0 % (0-5); POSITIVE DIFFERENTIAL YES; POSITIVE MORPHOLOGY YES; Platelet Count 199 K/mm3 (150-450); RBC Distribution Width CV 13.5 % (11.6-14.6); RBC Distribution Width SD 41.9 fl (35.1-43.9); Red Blood Count 4.08 M/mm3 (4.2-5.4); White Blood Count 9.4 K/mm3 (4.4-11.0)
[2025-04-13 16:36] LABS: Mucous, Urine 1+ /hpf (<or=2+); Red Blood Cells-Urine 0-5 SEEN /hpf (0-5)
[2025-04-13 16:37] LABS: Squamous Epithelial Cells - UA 0-5 SEEN /hpf (5-10)
[2025-04-13 16:39] LABS: AST(SGOT) 34 U/L (<=31); Alanine Aminotransfer ALT/SGPT 42 U/L (<=34); Albumin, Serum 3.9 g/dL (3.5-5.0); Alkaline Phosphatase 117 U/L (35-104); Anion Gap 9 (5-15); BUN 9 mg/dL (4-19); BUN/Creat Ratio 13.9 RATIO (10-20); Calcium,Total 8.6 mg/dL (7.6-11.0); Carbon Dioxide 25.8 mmol/L (21.0-32.0); Chloride 105 mmol/L (98-108); Estimated Creatinine Clearance 140.97 ml/min (50-250); Globulin 2.8 g/dL (2.2-4.2); Glucose 76 mg/dL (70-99); Potassium 3.3 mmol/L (3.3-5.1)
[2025-04-13 16:47] LABS: Troponin T High Sensitivity < 6 ng/L (<=14)
[2025-04-13 16:56] LABS: Internal QC Validated? YES +Cl - CLEAR BKGD
[2025-04-13 16:57] LABS: Record Kit Lot#, Mono 16251077
[2025-04-13 17:15] LABS: Differential Indicated SCAN CRITERIA MET
[2025-04-13 17:17] LABS: Reactive Lymphocyte 1+
[2025-04-13 17:18] VITALS: BP 111/86; PULSE 92; RESP 16; O2SAT 97
[2025-04-13 17:20] LABS: Polychromasia RARE; Smudge Cells RARE
[2025-04-13 17:23] VITALS: BP 111/86; PULSE 89; RESP 20; TEMP 37; O2SAT 98
[2025-04-16 14:08] LABS: Lyme Scn Total Ab w/Rflx Negative (Negative)
== END 2025-04-13 18:19 | disposition home or self-care (01) ==
PROVIDERS: Emergency Provider Emergency Medicine; PCP Nurse Practitioner Primary Care; Visit Provider Emergency Medicine
DX: N61.0 Mastitis without abscess (principal); R74.01 Elevation of levels of liver transaminase levels; Z87.891 Personal history of nicotine dependence; Z79.899 Other long term (current) drug therapy
CPT/HCPCS: 80053; 81001; 81025; 84443; 84484; 85025; 86308; 86618; 93005; 96360; 96361; 99284; A4216

== ENCOUNTER 2025-04-15 12:04 | Emergency (ER) | payer OTHER, SELFPAY ==
--- OUTSIDE RECORDS SUMMARY | 2025-04-12 09:38 | XMS RPT_ITS ---
Author Name [employer] Organization OH[facility] Care Team Providers Care Fitness Sales Consultant Name Role Phone ISSAC FERNÁNDEZ Primary Care Unavailab le VERONICA MUSE Attending Unavailable MAXINE ELLIS Referring Unavailable ISSAC FERNÁNDEZ Primary Care Unavailab MAXINE Jones Attending Unavailable ISSAC FERNÁNDEZ Primary Care Unavailab ROHAN Antunez Attending Unavailable ISSAC FERNÁNDEZ Primary Care Unavailab VERONICA Stockton Referring Unavailable VERONICA MUSE Attending Unavailable ISSAC FERNÁNDEZ Primary Care Unavailab le ISSAC FERNÁNDEZ Primary Care Unavailab ISSAC Lock [...] Referring Unavailab ISSAC Lock Primary Care Unavailab JAMAL [...] Unavailab ISSAC Lock Primary Care Unavailab le MAXINE ELLIS Referring [...] Care Unavailab ISSAC Lock Primary Care Unavailab SANTOS Bell Referring Unavailable MAXINE ELLIS Attending Unavailable ISSAC FERNÁNDEZ Primary Care Unavailab le MAXINE ELLIS Referring Unavailable ISSAC FERNÁNDEZ Primary Care Unavailab MAXINE Jones Attending Unavailable TOBIAS TAN PA-C Attending Unavailable TOBIAS TAN PA-C Primary Care Unavailable BRITNEY WHITEHEAD, TOBIAS Nuñez Primary Care Unavailable CAROL MONTE-SUSANA, MARIELLE Early Attending Unavaila ble PROBLEMS DATE TYPE CONDITION / CODE ATTENDING STATUS [facility] 04/12/2025 Active Hand, foot and m outh disease / B08.4(ICD-10) ISSAC FERNÁNDEZ Active [facility] 04/12/2025 Active Fever, unspecifi ed fever cause / R50.9(ICD-10) ISSAC FERNÁNDEZ Active [facility] 04/07/2025 Active Dizziness / R42(ICD-10) JADE VILLALBA Active [facility] 04/07/2025 Active Tachycardia / R00.0(ICD-10) ROHAN VILLALBA Active [facility] 03/28/2025 Active Positional lightheadedness / R42(ICD-10) NA Active [facility] 03/28/2025 Active SOB (shortness o f breath) / R06.02(ICD-10) HBARAT MOSHER Active [facility] 03/28/2025 Active Nasal congestion / R09.81(ICD-10) BHARAT MOSHER Active [facility] 03/28/2025 Active Right leg pain / M79.604(ICD-10) BHARAT MOSHER Active [facility] 03/22/2025 Active Asymptomatic erika icose veins of right lower extremity / I83.91(ICD-10) ISSAC FERNÁNDEZ [facility] 03/22/2025 Active Hypotension, uns pecified hypotension type / I95.9(ICD-10) ISSAC FERNÁNDEZ [facility] 08/04/2021 Active Moderate episode of recurrent major depressive disorder (HCC) / F33.1(ICD-10) MAXINE ELLIS [facility] 03/21/2025 Active Mixed obsessiona l thoughts and acts / F42.2(ICD-10) MAXINE ELLIS [facility] 03/21/2025 Active Encounter for lo ng-term (current) use of medications / Z79.899(ICD-10) MAXINE ELLIS [facility] 03/21/2025 Active anxie ty ([facility]) / O99.345(ICD-10) MAXINE ELLIS Active [facility] 03/21/2025 Active anxie ty ([facility]) / F41.8(ICD-10) MAXINE ELLIS Active [facility] 03/20/2025 Active Hx of gestationa l diabetes mellitus, not currently / Z86.32(ICD-10) NA Active [facility] 03/14/2025 Active 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 / G43.119(ICD-10) CITLALI CEJA Active [facility] 03/05/2025 Active Annual physical exam / Z00.00(ICD-10) PODLOGAR, VERONICA Active [facility] 03/05/2025 Active Screening-pulmon ambika TB / Z11.1(ICD-10) PODLOGAR, VERONICA Active [facility] 03/05/2025 Active Gastroesophageal reflux disease, unspecified whether esophagitis present / K21.9(ICD-10) PODLOGAR, VERONICA Active [facility] 03/05/2025 Active Migraine without aura, not intractable, without status migrainosus / G43.009(ICD-10) PODLOGAR, VERONICA Active [facility] 03/05/2025 Active Anxiety disorder , unspecified type / F41.9(ICD-10) PODLOGAR, VERONICA Active [facility] 03/03/2025 Active Sore throat / J02.9(ICD-10) ROHAN VILLALBA Active [facility] 02/22/2025 Active Migraine without status migrainosus, not intractable, unspecified migraine type / G43.909(ICD-10) CITLALI CEJA Active [facility] 02/22/2025 Active Unsteadiness on feet / R26.81(ICD-10) CITLALI CEJA Active [facility] 02/22/2025 Active Numbness and tin gling / R20.0(ICD-10) CITLALI CEJA Active [facility] 02/22/2025 Active Numbness and tin gling / R20.2(ICD-10) CITLALI CEJA Active [facility] 02/22/2025 Active Demyelinating di sease of central nervous system (HCC) / G37.9(ICD-10) CITLALI CEJA Active [facility] 02/18/2025 Active Family history o f thyroid disease / Z83.49(ICD-10) NA Active [facility] 02/14/2025 Active Pharyngitis, uns pecified etiology / J02.9(ICD-10) NA Active [facility] 02/07/2025 Active Impacted cerumen of right ear / H61.21(ICD-10) ROHAN VILLALBA Active [facility] 02/07/2025 Active Rhinosinusitis / J32.9(ICD-10) ROHAN VILLALBA Active [facility] 01/25/2025 Active Blurred vision / H53.8(ICD-10) ISSAC FERNÁNDEZ Active [facility] 01/25/2025 Active Dizziness and gi ddiness / R42(ICD-10) ISSAC FERNÁNDEZ Active [facility] 12/27/2024 Active Palpitations / R00.2(ICD-10) ISSAC FERNÁNDEZ Active [facility] 12/27/2024 Active Encounter for pr egnancy test, result unknown / Z32.00(ICD-10) ISSAC FERNÁNDEZ Active [facility] 11/30/2024 Active Migraine with au ra, intractable, without status migrainosus / G43.119(ICD-10) PODLOGVERONICA BERGER Active [facility] 11/30/2024 Active Mother currently breast-feeding (HCC) / Z39.1(ICD-10) PODLOGVERONICA BERGER Active [facility] 11/06/2024 Active Urinary frequenc y / R35.0(ICD-10) JAMAL CORTEZ Active [facility] 11/06/2024 Active Low back pain wi th sciatica, sciatica laterality unspecified, unspecified back pain laterality, unspecified chronicity / M54.40(ICD-10) JAMAL CORTEZ Active [facility] 11/01/2024 Active Encounter for immunization / Z23(ICD-10) NA Active [facility] 10/08/2024 Unknown Dizziness and gi ddiness / R42(ICD-10) MARIELLE DANG Active [facility] 08/14/2024 Active anxie ty / O99.345(ICD-10) MAXINE ELLIS [facility] 08/14/2024 Active anxie ty / F41.8(ICD-10) MAXINE ELLIS [facility] 08/14/2024 Active MARK (generalized anxiety disorder) / F41.1(ICD-10) MAXINE ELLIS [facility] 08/14/2024 Active Social anxiety d isorder / F40.10(ICD-10) MAXINE ELLIS [facility] PROCEDURES No Procedure Records Found RESULTS CNOV Observed: 04/12/2025 10:00 AM Status: COMPLETED Source: [facility] SHAWANDA BRINK ([id number]) 1 F Date Time Provider Department 04/12/25 10:00 AM ISSAC FERNÁNDEZ [facility] During your visit today, we recorded the [...] Intermittent fevers last 7 days Recording using PRX software for draft documentation of the visit was discussed with the patient/authorized outside sales representative; all questions welcomed and answered. Patient/authorized outside sales representative agreed to proceed HPI Shawanda Brink [...] are associated with near-syncope. - Evaluated at [facility] ED on 04/07 for these complaints and [...] Maternal Grandmother Cervical Cancer Maternal Grandmother other (ND) Maternal Grandfather 49 other (depression and anxiety) [...] Abs Lymph 1.00 - 4.00 k/uL 2.47 [place]% % 3.8 Abs [place] <0.87 k/uL 0.23 Eosin% % 1.3 Abs [...] Fernández MD 04/12/2025 10:23 AM Signed - supervisor burling and joining your propranolol prescription and begin taking 10 mg by mouth twice daily as directed. - Continue taking your migraine medications as previously prescribed. - Attend your scheduled tilt table test on April 19 at [facility] to evaluate for postural orthostatic tachycardia syndrome (POTS). - Arrange and attend a cardiology appointment as directed; the front end software developer will help you schedule this. - [...] [R50.9] Order(s):CONSULT TO CARDIOLOGY [9004] Order #: [id number]: 1 FUTURE Prescriptions as of 04/12/2025 - [...] 08/04/2021 Other instructions from your clinician: - supervisor burling and joining your propranolol prescription and begin taking 10 mg by mouth twice daily as directed. - Continue taking your migraine medications as previously prescribed. - Attend your scheduled tilt table test on April 19 at [facility] to evaluate for postural orthostatic tachycardia syndrome (POTS). - Arrange and attend a cardiology appointment as directed; the front end software developer will help you schedule this. - [...] for Encounter Date Provider Department Center 04/12/2025 [id number]-GKRDEZLDIAZ FERNÁNDEZ*DON [place] [facility] Encounter Status:Closed by ISSAC FERNÁNDEZ on 04/12/25 PROGRESS Observed: 04/12/2025 9:59 AM Status: COMPLETED Source: [facility] HNO ID: [id number] Author: ISSAC FERNÁNDEZ MD Service: ? Author Type: Physician Type: Progress Notes Filed: 04/12/2025 10:33 Note Text: Chief Complaint Patient presents with: ER F/U: Concerned about her immune system. Recently had Hand Foot Mouth. She states her tachycardia and head pressure symptoms have been exacerbated since Hand Foot Mouth. Fever: Intermittent fevers last 7 days Recording using PRX software for draft documentation of the visit was discussed with the patient/authorized outside sales representative; all questions welcomed and answered. Patient/authorized outside sales representative agreed to proceed HPI Shawanda Brink [...] are associated with near-syncope. - Evaluated at [facility] on 04/07 for these complaints and [...] Maternal Grandmother Cervical Cancer Maternal Grandmother other (ND) Maternal Grandfather 49 other (depression and anxiety) [...] Abs Lymph 1.00 - 4.00 k/uL 2.47 [place]% % 3.8 Abs [place] <0.87 k/uL 0.23 Eosin% % 1.3 Abs [...] Observed: 04/07/2025 10:03 AM Status: COMPLETED Source: [facility] ID: [id number] Author: ROHAN VILLALBA APRN.SUPERVISOR [employer] Service: ? Author Type: Nurse Practitioner Type: Progress Notes Filed: 04/07/2025 10:05 Note Text: URGENT CARE SHIRAZ Brink is [...] follow-up and further testing. and Recording using PRX software for draft documentation of the visit was discussed with the patient/authorized outside sales representative; all questions welcomed and answered. Patient/authorized outside sales representative agreed to proceed MDM Procedures CNOV Observed: 04/07/2025 9:45 AM Status: COMPLETED Source: [facility] Office Visit ([facility]) SHAWANDA BRINK ([id number]) 1 F Date Time Provider Department 04/07/25 9:45 AM ROHAN VILLALBA During your visit today, we recorded the following information about you: Temperature Pulse Respiration Blood pressure 98.7 degrees 102/minute 20/minute 108/90 Weight 73.2 kg Rohan Villalba APRN.SUPERVISOR [employer] 04/07/2025 10:05 AM Signed [facility] Subjective Shawanda Brink [...] follow-up and further testing. and Recording using PRX software for draft documentation of the visit was discussed with the patient/authorized outside sales representative; all questions welcomed and answered. Patient/authorized outside sales representative agreed to proceed MDM Procedures Allergies [...] Observed: 04/06/2025 3:58 PM Status: COMPLETED Source: [facility] ID: [id number] Author: TIMMY KRUEGER PA-C Service: ? Author Type: Physician Skin Care Therapist Type: Progress Notes Filed: 04/06/2025 16:03 Note Text: Telemedicine Visit - Distance Health Virtual Visit Note Patient seen on [employer] Video Visit platform. Location of patient: [place] Issac Fernández MD I have communicated my name and active licensure. The patient's identity and physical location were verified at the time of this visit. Either the patient or their legal outside sales representative has been informed of the risks [...] ear infections without visual inspection. Recording using PRX software for draft documentation of the visit was discussed with the patient/authorized outside sales representative; all questions welcomed and answered. Patient/authorized outside sales representative agreed to proceed IF YOUR SYMPTOMS PERSIST [...] Observed: 04/02/2025 8:29 AM Status: COMPLETED Source: [facility] HNO ID: [id number] Author: MAXINE ELLIS APRN.CNP Service: ? Author Type: Nurse Practitioner Type: Progress Notes Filed: 04/02/2025 08:29 Note Text: Patient did not come in for her follow up appointment with the provider. CNOV Observed: 04/02/2025 8:00 AM Status: COMPLETED Source: [facility] Office Visit (PSWSTR) SHAWANDA BRINK ([id number]) 1 F Date Time Provider Department 04/02/25 8:00 AM MAXINE ELLIS [facility] During your visit today, we recorded the following information about you: Maxine Ellis APRN.SUPERVISOR WOOD CREW 04/02/2025 8:29 AM Signed Patient did not come in for her follow up appointment with the provider. Referring Provider: MAXINE ELLIS [[id number]] Allergies As of Date: 04/02/2025 Noted Allergy [...] 03/28/2025 2:13 PM Sta tus: F Source: [facility] Comment: Specimen Type : BLOOD SPECIMEN Ordering Facility: [facility] Address: [address] [place] [address] TYPE CODE TESTS RESULT OUT OF RANGE REFERENCE UNITS LAB 2132-9(LOINC) Vit B12 SerPl-mCnc 887 268-9113 pg/mL Performed By: #### 3016-3, 2 284-8, 9 #### [facility] CLIA [id number] [address] [place] [address] [place] FOLATE SERPL-MCNC Collected: 2:13 PM Status: F Source: [facility] Comment: Specimen Type : BLOOD SPECIMEN Ordering Facility: [facility] Address: [address] [place] [address] TYPE CODE TESTS RESULT OUT OF RANGE [...] III (Folate III) [package insert V 1.0 Mosotho]. [facility], [place], [place]: May 2015. Performed By: #### 3016-3, 2 284-8, 9 #### [facility] CLIA [id number] [address] [place] [address] [place] TSH SERPL-ACNC Collected: 2:13 PM Status: F Source: [facility] Order Comment: Specimen Type : BLOOD SPECIMEN Ordering Facility: [facility] Address: [address] [place] [address] TYPE CODE TESTS RESULT OUT OF RANGE [...] Choe, et al. 2017 Guidelines of the [place] Thyroid Association for the Diagnosis and Management of Thyroid Disease during and the . Thyroid, 2017:27:3:315-389. Performed By: #### 3016-3, 2 284-8, 2132-9 #### [facility] CLIA [id number] [address] [place] [address] [place] CNOV Observed: 03/28/2025 10:45 AM Status: COMPLETED Source: [facility] Office Visit (W[facility]) SHAWANDA BRINK ([id number]) 1 F Date Time Provider Department 03/28/25 10:45 AM BHARAT MOSHER During your visit today, we recorded the following information about you: Temperature Pulse Respiration Blood pressure 98 degrees 75/minute 18/minute 122/96 Weight 72.4 kg Bharat Mosher MD 03/28/2025 11:10 AM Signed [facility] Subjective Shawandadaija Brink is a 19 year old female. [...] her PCP last week. Her children have fnny-lalg-piw-mouth disease. She was exposed to COVID and works in a [place]. She has taken Advil sinus for symptoms [...] The patient was other (comment) (referred to [facility] ED). Procedures Allergies As of Date: [...] Encounter Level of Service: OFFICE/OUTPATIENT ESTABLISHED MOD [facility] 30 MIN[13646] Date AND Time: 03-28-2025 11:09 AM Recorded by User: BHARAT MOSHER Encounter Status:Closed by BHARAT MOSHER on 03/28/25 PROGRESS Observed: 03/28/2025 10:43 AM Status: [id number] Author: BHARAT MOSHER MD Service: ? Author [...] her PCP last week. Her children have xhwc-qztb-mpu-mouth disease. She was exposed to COVID and works in a [place]. She has taken Advil sinus for symptoms [...] The patient was other (comment) (referred to [facility]). Procedures CNPN Observed: 03/27/2025 12:00 AM Status: COMPLETED Source: [facility] Telephone (PSYLME) SHAWANDA BRINK ([id number]) 1 F Date Time Provider Department 03/27/25 TOSHIA HESS During your visit today, we recorded the following information about you: Toshia Hess LPCC 03/27/2025 2:29 PM Signed Behavioral Health Social Work Progress Note Patient identified for [facility] from: PCP [facility] encounter type: Telephone Encounter Attempts to Outreach: 4 attempts Referral made: Psychology - Internal Psychology-Internal referral type: Therapy Final Disposition: Care established with Patient Discharged?: No therapist returned patient's call, left [facility] for patient to return call to scheduled [...] Observed: 03/22/2025 9:17 AM Status: COMPLETED Source: [facility] ID: [id number] Author: ISSAC FERNÁNDEZ MD Service: ? Author [...] follow up after echo results. Recording using PRX software for draft documentation of the visit was discussed with the patient/authorized outside sales representative; all questions welcomed and answered. Patient/authorized outside sales representative agreed to proceed HPI Shawanda Brink [...] Maternal Grandmother Cervical Cancer Maternal Grandmother other (ND) Maternal Grandfather 49 other (depression and anxiety) [...] Observed: 03/22/2025 9:00 AM Status: COMPLETED Source: [facility] SILVERIOPOOJASHAWANDA ([id number]) 1 F Date Time Provider Department 03/22/25 9:00 AM ISSAC FERNÁNDEZ [facility] During your visit today, we recorded the [...] follow up after echo results. Recording using PRX software for draft documentation of the visit was discussed with the patient/authorized outside sales representative; all questions welcomed and answered. Patient/authorized outside sales representative agreed to proceed HPI Shawanda Brink is a 19 year old female who presents here today for Above Complaints. Lump on Knee: - Shawanda M Silveriopooja noticed a lump on the knee 2-3 [...] Maternal Grandmother Cervical Cancer Maternal Grandmother other (ND) Maternal Grandfather 49 other (depression and anxiety) [...] - Follow-up after tilt table test results. sIsac Fernández MD [1] Social History Tobacco Use [...] Access your after-visit summary and paperwork in [employer] at your convenience. - Keep your routine follow-up appointment in April as scheduled. Allergies As of Date: 03/22/2025 Noted Allergy Reaction CELEXA (CITALOPRAM) 03/21/2024 14 - Other: See Comments Comments: Tunnel vision LEXAPRO (ESCITALOPRAM) 03/21/2024 2 - Rash Date Reviewed: 03/22/2025 Reviewed by: Nasima Guthrie MA - Fully Assessed Reason for Visit: Lump [14896] Cmt: Noticed lump on inner left backside [...] Access your after-visit summary and paperwork in [employer] at your convenience. - Keep your routine follow-up appointment in April as scheduled. Disposition: Return if symptoms worsen or fail to improve. Follow-up and Disposition History for Encounter Date Provider Department Center 03/22/2025 [id number]-ANVNCQTORVILLE FERNÁNDEZ [facility] Encounter Status:Closed by ISSAC FERNÁNDEZ on 03/22/25 PROGRESS Observed: 03/21/2025 11:07 AM Status: [facility]ED [facility] [id number] Author: MAXINE ELLIS APRN.SUPERVISOR [employer] Service: ? Author Type: Nurse Practitioner Type: [...] visit. Either the patient or their legal outside sales representative has been informed of the risks and benefits of -- and alternatives to -- treatment through a remote evaluation and consents to proceed with the evaluation remotely. Recording using PRX software for draft documentation of the visit was discussed with the patient/authorized outside sales representative; all questions welcomed and answered. Patient/authorized outside sales representative agreed to proceed CC: Outpatient follow-up [...] since August. She frequently uses [employer] and [employer] to research symptoms, which exacerbates her anxiety. 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 She reports [...] Worse PATIENT DATA: Generalized Anxiety Disorder Scale (MRAK-7) 10/18/2024 03/05/2025 03/20/2025 MARK - 7 SCORES [...] (current) use of medications (Z79.899) - Monitor superintendent terminal side effects related to Amitriptyline. Increase dose [...] Collected: 03/20 12:27 PM Status: F Source: [facility] Order Comment: Specimen Type : BLOOD SPECIMEN Ordering Facility: [facility] Address: [address] [place] [address] TYPE CODE TESTS RESULT OUT OF RANGE REFERENCE UNITS LAB 4548-4(LOINC) HbA1c MFr Bld 5.1 4.3-5.6 % Result Comment: [place] Jaylyn betes Association guidelines indicate that patients with HgbA1c in the range 5.7-6.4% are at increased risk for development of diabetes, and intervention by lifestyle modification may be beneficial. HgbA1c greater or equal to 6.5% is considered diagnostic of diabetes. LAB 42999-2(LOINC) Est. average glucose Bld gHb Est-mCnc 100 mg/dL Result Comment: eAG: (Estima charlie average glucose) is a calculated value from HgbA1c and is outside sales representative of the average blood glucose level in the last 2-3 month period. Performed By: #### 75639-1 # ### [facility] CLIA [id number] [address] [place], [place] [address] [address] [place] ECHO Observed: 03/19/2025 3:32 PM Status: F Source: [facility] Echocardiography Report: Tra nsthoracic Echo [facility] Date of service: 03/19/2025 3:32:13 PM MAKER Ordering physician: ISSAC FERNÁNDEZ Exam indication: Palpitations Technologist: Antoinette Vicente [facility] Interpreting physician: [...] * * * Final * * * [employer] [facility] : [id number] [facility] FOR WOMENWarren Observed: 03/16/2025 12:00 AM Status: COMPLETED Source: [facility] SHAWANDA BRNIK ([id number]) 1 F Date Time Provider Department 03/16/25 ISSAC FERNÁNDEZ [facility] During your visit today, we recorded the [...] dicussed during call. Bela Martinez RN Podlogar, LORENA Martin 03/19/2025 7:14 AM Signed Reviewed. Veronica PodlogLORENA berger Allergies As of Date: 03/16/2025 Noted Allergy [...] Observed: 03/14/2025 8:12 AM Status: COMPLETED Source: [facility] HNO ID: [id number] Author: CITLALI CEJA PA-C Service: ? Author Type: Physician Skin Care Therapist Type: Progress Notes Filed: 03/14/2025 09:13 Note Text: Neurology Outpatient Clinic Date: March 14, 2025 Patient Name: Shawanda Brink Referring physician: Issac Fernández [address] [place], [place] [id number] Consult requested for headache by Dr. Fernández. Recommendations will be communicated via shared medical record or US mail. Primary physician: Issac Fernández [address] [place], [place] [id number] Reason for Evaluation: Headaches Subjective HPI Shawanda [...] gradual Location: Right sided. Aura: 5-6 times Prodrome:bxo7pyg, kaleidsecope lasting 30-45 minuhtes . Accompanying symptoms: [...] Maternal Grandmother Cervical Cancer Maternal Grandmother other (ND) Maternal Grandfather 49 other (depression and anxiety) [...] Negative Coordination: finger-to- nose-finger intact bilaterally and oame-ma-arxv intact bilaterally. Gait: Patient's gait is normal [...] which included preparing to see the patient, owka-oi-phxt patient care, completing clinical documentation, obtaining and/or reviewing separately obtained history, performing a medically appropriate examination, counseling and educating the patient/family/caregiver, and ordering medications, tests, or procedures. Citlali Ceja PA-C [facility] Neurology This document has been created with the use of voice recognition technology. It may contain inaccuracies: (e.g. misspellings, inaccurate syntax or word sense) that have escaped review. [1] Social History Tobacco Use Smoking status: Never Smokeless tobacco: Never Vaping Use Vaping status: Never Used Substance Use Topics Alcohol use: Never Drug use: Never CNOV Observed: 03/14/2025 8:00 AM Status: COMPLETED Source: [facility] Office Visit ([facility]) SHAWANDA BRINK ([id number]) 1 F Date Time Provider Department 03/14/25 8:00 AM CITLALI CEJA [facility] During your visit today, we recorded the following information about you: Weight Height 73.1 kg 1.624 m Citlali Ceja PA-C 03/14/2025 9:13 AM Signed Neurology Outpatient Clinic Date: March 14, 2025 Patient Name: Shawanda Brink Referring physician: Issac Fernández [address] [facility] [address] Consult requested for headache by Dr. Fernández. Recommendations will be communicated via shared medical record or US mail. Primary physician: Issac Fernández [address] [place] [address] Reason for Evaluation: Headaches Subjective HPI Shawanda [...] gradual Location: Right sided. Aura: 5-6 times Prodrome:ivo1dsl, kaleidsecope lasting 30-45 minuhtes . Accompanying symptoms: [...] Maternal Grandmother Cervical Cancer Maternal Grandmother other (ND) Maternal Grandfather 49 other (depression and anxiety) [...] Negative Coordination: finger-to- nose-finger intact bilaterally and ivul-cu-hrrw intact bilaterally. Gait: Patient's gait is normal [...] which included preparing to see the patient, omka-ve-rttf patient care, completing clinical documentation, obtaining and/or reviewing separately obtained history, performing a medically appropriate examination, counseling and educating the patient/family/caregiver, and ordering medications, tests, or procedures. Citlali Ceja PA-C [facility] Neurology This document has been created [...] tips for improved daily living with POTS. http://www.[facility].org/pots Orthostatic Workout There are videos /playlist/podcast to viewed and helped for exercises and wellness for POTS and Orthostatics Instructions:https://www.[employer]ube.com/channel/IY7LYsLMg0IIODTEpPbmDnDV In your search bar in the internet [...] support people Also follow us along on Flipkart account BUDDY Also besides the exercise are some nneka mediation videos . Click and watch. Utilize when your adrenaline is active. May even play music to go along. Play the video as often you want to help as an additional tool to reset the adrenaline https://www.youtube.com/watch?v=fQOu3uXuGB9 https://www.youtube.com/watch?v=d0pLcyX-5qTQZAwcrxrgo=jsdae.perla https://www.youPuma Biotechnologyube.com/watch?v=U9mK3mUaU28 Headache Preventive Treatment: Please keep in mind [...] Feverfew: Feverfew is a common garden herb tan[place]ross to [place] and popular in [facility] as a treatment for disorders [...] pepperoni, Pickled villanueva Pods of broad chacon (Mosotho beans, Maori pea pods, German (sohail) beans, dubois and navy beans Ripe [...] much light. These can be obtained at [employer] or [employer]: see list above. 2. Limit use of acute treatments (tmpn-eps-hnfsago medications, triptans, etc.) to no more than [...] and quiet environment. Relax and reduce stress. Cgcujqg7Apaos is a free pravin that can instruct you on some simple relaxtion and breathing techniques. Http://Stayhound is a free website that provides teaching [...] and will be handling your phone calls, [employer] Messages and inquiries, if any. Unless explicitly told otherwise at the time of your office visit, your study results and ensuing treatment plans will be released via [employer] and discussed during your follow-up appointment. [employer]: Please ask the schedulers to give you an activation code. The main way of communication is by [employer] rather than phone lines, so if you have not signed up, please do so. [employer] is also the way that you can review your labs and testing. We are not able to contact everyone to tell them results are normal. If you do not hear back from us regarding testing you have had, it should be considered normal or within normal range. If you have any questions about the results, you are free to message us. [employer] is meant for simple questions regarding medications, possible side effects, or other simple straight forward questions in limited sentences, rather than multiple paragraphs of discussion. [employer] is not meant for, or efficient for [...] do not comment on most testing on [employer] in a message or commentary unless there [...] with this process. Referring Provider: ISSAC FERNÁNDEZ [[id number]] Allergies As of Date: 03/14/2025 Noted Allergy [...] headache.Disp: 10 tabletRfl: 2 TILT TABLE EVALUATION [35197YKV] Order #: [id number]: 1 Prescriptions as of 03/14/2025 - eletriptan [...] exercises and wellness for POTS and Orthostatics Instructions:https://www.[employer]ube.com/channel/DP2UExWBs6OBYGOPgMezHfPB In your search bar in the internet [...] support people Also follow us along on Flipkart account POTSWILSON Also besides the exercise are some nneka mediation videos . Click and watch. Utilize when your adrenaline is active. May even play music to go along. Play the video as often you want to help as an additional tool to reset the adrenaline https://www.Robot[employer]ube.com/watch?v=nUEm6kUwFU9 https://www.youtube.com/watch?v=e7uQhtA-6jKRWSmfiohtc=ugbgghi https://www.youtube.com/watch?v=D0oM8iYuD16 Headache Preventive Treatment: Please keep in mind [...] Feverfew: Feverfew is a common garden herb tanacross to [place] and popular in [place] [...] pepperoni, Pickled villanueva Pods of broad chacon (Mosotho beans, Maori pea pods, German (sohail) beans, dubois and navy beans Ripe [...] much light. These can be obtained at [employer] or [employer]: see list above. 2. Limit use of acute treatments (sltu-aua-zyrbygf medications, triptans, etc.) to no more than [...] and quiet environment. Relax and reduce stress. Gszsqsq1Vbiio is a free pravin that can instruct you on some simple relaxtion and breathing techniques. Http://Stayhound is a free website that provides teaching videos on relaxation. Also, there are many apps that can be downloaded for ?mindful? relaxation. An pravin called YOGA NIDI Do Now I Don't will help walk you through mindfulness. Cold [...] and will be handling your phone calls, [employer] Messages and inquiries, if any. Unless explicitly told otherwise at the time of your office visit, your study results and ensuing treatment plans will be released via [employer] and discussed during your follow-up appointment. MyChart: Please ask the schedulers to give you an activation code. The main way of communication is by [employer] rather than phone lines, so if you have not signed up, please do so. [employer] is also the way that you can review your labs and testing. We are not able to contact everyone to tell them results are normal. If you do not hear back from us regarding testing you have had, it should be considered normal or within normal range. If you have any questions about the results, you are free to message us. [employer] is meant for simple questions regarding medications, possible side effects, or other simple straight forward questions in limited sentences, rather than multiple paragraphs of discussion. [employer] is not meant for, or efficient for [...] do not comment on most testing on [employer] in a message or commentary unless there [...] for Encounter Date Provider Department Center 03/14/2025 [id number], MELANIE [facility] Encounter Status:Closed by CITLALI CEJA on 03/14/25 MARS Observed: 03/08/2025 12:00 AM Status: COMPLETED Source: [facility] ([id number]) 1 F Date Time Provider Department 03/08/25 ISSAC FERNÁNDEZ During your visit today, we [...] await provider's advise. SHERLY Quezada Nishi J, APRN.SUPERVISOR WOOD [employer]W 03/08/2025 10:17 AM Signed Please tell the [...] Observed: 03/08/2025 12:00 AM Status: COMPLETED Source: [facility] SHAWAN[facility] BR[facility] ([id number]) 1 F Date Time Provider Department 03/08/25 [...] ordering blood work. Please review and advise, SHERLY Cavazos Julie, APRN.SUSANA 03/11/2025 7:50 AM Signed Orders for [...] - Rash Date Reviewed: 03/05/2025 Reviewed by: Yhoana Bird LPN - Fully Assessed Reason for Visit: Patient Question [1747] Primary Visit Diagnosis:Hx of gestational diabetes mellitus, not currently [Z86.32] Order(s):HEMOGLOBIN A1C [ILSRI4L] Order #: [id number] FUTURE Prescriptions as of 03/11/2025 - FLUoxetine [...] Observed: 03/05/2025 11:00 AM Status: COMPLETED Source: [facility] ([id number]) 1 F Date Time Provider Department 03/05/25 11:00 AM VERONICA MUSE During your visit today, we recorded the following information about you: Pulse Respiration Blood pressure Weight 82/minute 18/minute 106/74 74.4 kg Height 1.624 m Veronica Muse APRN.CNP 03/05/2025 11:27 AM Signed 03/05/2025 Patient presents with: Physical Recording using PRX software for draft documentation of the visit was discussed with the patient/authorized outside sales representative; all questions welcomed and answered. Patient/authorized outside sales representative agreed to proceed SUBJECTIVE: This is [...] No history of dysuria, frequency or incontinence SURGICAL ASSIST: Negative for abnormal vaginal bleeding, abnormal vaginal [...] Abs Lymph 1.00 - 4.00 k/uL 2.47 Anasco% % 3.8 Abs Anasco <0.87 k/uL 0.23 Eosin% % 1.3 Abs [...] amitriptyline. - follow-up as needed Veronica Muse APRN.SUPERVISOR WOOD [employer]W Prescription instructions reviewed with patient as applicable. [...] [F41.9] Order(s):BLOOD TB SCREEN [SQINFTBP] Order #: [id number] FUTURE Prescriptions as of 03/05/2025 - pantoprazole [...] Observed: 03/05/2025 10:56 AM Status: [facility]TED [id number] Author: VERONICA MUSE APRN.SUPERVISOR WOOD CREW Service: ? Author Type: Nurse Practitioner Type: Progress Notes Filed: 03/05/2025 11:27 Note Text: 03/05/2025 Patient presents with: Physical Recording using PRX software for draft documentation of the visit was discussed with the patient/authorized outside sales representative; all questions welcomed and answered. Patient/authorized outside sales representative agreed to proceed SUBJECTIVE: This is [...] No history of dysuria, frequency or incontinence SURGICAL ASSIST: Negative for abnormal vaginal bleeding, abnormal vaginal [...] Abs Lymph 1.00 - 4.00 k/uL 2.47 Anasco% % 3.8 Abs Anasco <0.87 k/uL 0.23 Eosin% % 1.3 Abs [...] Continue amitriptyline. - follow-up as needed Veronica PodlogLAVELL berger.SUPERVISOR WOOD [employer]W Prescription instructions reviewed with patient as applicable. [...] Observed: 03/03/2025 3:08 PM Status: COMPLETED Source: [facility] HNO ID: [id number] Author: ROHAN VILLALBA APRN.SUPERVISOR WOOD [employer]W Service: ? Author Type: Nurse Practitioner Type: Progress Notes Filed: 03/03/2025 15:08 Note Text: [facility] Subjective Shawanda [...] agreeable to care plan. and Recording using PRX software for draft documentation of the visit was discussed with the patient/authorized outside sales representative; all questions welcomed and answered. Patient/authorized outside sales representative agreed to proceed MDM Procedures CNOV Observed: 03/03/2025 2:30 PM Status: COMPLETED Source: [facility] Office Visit ([facility]) SHAWANDA BRINK ([id number]) 1 F Date Time Provider Department 03/03/25 2:30 PM ROHAN VILLALBA During your visit today, we recorded the following information about you: Temperature Pulse Respiration Blood pressure 97.6 degrees 76/minute 20/minute 120/78 Weight Last Period 74 kg 11/04/21 Rohan Villalba APRN.SUPERVISOR WOOD [employer]W 03/03/2025 3:08 PM Signed [facility]ARE [facility] Ayse Nuñez [place] is a 19 year old [...] agreeable to care plan. and Recording using PRX software for draft documentation of the visit was discussed with the patient/authorized outside sales representative; all questions welcomed and answered. Patient/authorized outside sales representative agreed to proceed MDM Procedures Allergies [...] Diagnosis:Sore throat [J02.9] Order(s):STREP A MOLECULAR (POC) [5736087] Order #: [id number]. #:[id number] CONSULT TO ENT [9008] Order #: [id number]: [address] (PROTONIX) 20 mg [...] Encounter Status:Closed by ROHAN VILLALBA on 03/03/25 CNPN Observed: 02/22/2025 12:00 AM Status: COMPLETED Source: [facility] Telephone ([facility]) SHAWANDA BRINK ([id number]) 1 F Date Time Provider Department 02/22/25 CITLALI CEJA During your visit today, we recorded the following information about you: Tessy Chow LPN 02/22/2025 1:21 PM Signed Patient was unaware when they scheduled her appointment it was [place]. Patient was in [facility] waiting area after being checked in for appointment by [facility]. Assisted rescheduling patient for [facility]. Tessy Chow LPN Allergies As of Date: 02/22/2025 Noted Allergy Reaction CELEXA (CITALOPRAM) 03/21/2024 14 - Other: See Comments Comments: Tunnel vision LEXAPRO (ESCITALOPRAM) 03/21/2024 2 - Rash Date Reviewed: 02/14/2025 Reviewed by: Jamal Cortez APRN.SUPERVISOR [employer]W - Fully Assessed Reason for Visit: Appointment [...] 02/18/2025 2:2 0 PM Status: F Source: [facility] Comment: Specimen Type : BLOOD SPECIMEN Ordering Facility: [facility] Address: [address] [place] [address] TYPE CODE TESTS RESULT OUT OF RANGE REFERENCE UNITS LAB 8099-4(LOINC) Thyroperoxidase Ab SerPl-aCnc <3.0 <5.6 IU/mL Result Comment: Thyroid Lisa xidase Antibody test is used as an aid in diagnosis of autoimmune thyroid disease. Clinical correlation is required. Performed By: #### MICRO ### # [facility] CLIA [id number] [address] [place] [address] T4 FREE SERPL-MCNC Collected: 02/18/2025 2:20 PM Sta tus: F Source: [facility] Comment: Specimen Type : BLOOD SPECIMEN Ordering Facility: [facility] Address: [address] [place] [address] TYPE CODE TESTS RESULT OUT OF RANGE REFERENCE UNITS LAB 3024-7(LOINC) T4 Free SerPl-mCnc 1.3 0.9-1.7 ng/dL Performed By: #### 3053-6, 3 024-7 #### [facility] CLIA [id number] [address] [place] [address] OF [facility] T3 SERPL-MCNC Collected: 02/18/2025 2:20 PM Status: F Source: [facility] Comment: Specimen Type : BLOOD SPECIMEN Ordering Facility: [facility] Address: [address] [place] [address] TYPE CODE TESTS RESULT OUT OF RANGE REFERENCE UNITS LAB 3053-6(LOINC) T3 SerPl-mCnc 109 79-165 ng/d L Performed By: #### 3053-6, 3 024-7 #### [facility] CLIA [id number] [address] [place] [address] OF [facility] MARS Observed: 02/18/2025 12:00 AM Status: COMPLETED Source: [facility] Telephone ([facility]) SHAWANDA BRINK ([id number]) 1 F Date Time Provider Department 02/18/25 ISSAC FERNÁNDEZWS During your visit today, we recorded the following information about you: Keli Myers RN 02/18/2025 10:58 AM Signed Nadz with [employer] called wanting the billing codes for the [...] Date Reviewed: 02/14/2025 Reviewed by: Jamal Cortez APRN.SUPERVISOR [employer]W - Fully Assessed Reason for Visit: Billing [...] Collected: 2024 4:35 PM Status: F Source: [facility] Order Comment: Specimen Type : BLOOD SPECIMEN Ordering Facility: [facility] Address: [address] [place] [address] TYPE CODE TESTS RESULT OUT OF RANGE REFERENCE UNITS LAB 5213-4([facility]) Heteroph Ab Ser Ql LA Negative Negative [...] required. Performed By: #### 5213-4 ## ## [facility] CLIA [id number] [address] [place] [address] STATES OF LO COMP METAB 2000 PNL SERPL Collected: 4:35 PM Status: F Source: [facility] Order Comment: Specimen Type : BLOOD SPECIMEN Ordering Facility: [facility] Address: [address] [place] [address] TYPE CODE TESTS RESULT OUT OF RANGE REFERENCE UNITS LAB 2885-2(LOINC) Prot SerPl-mCnc 7.5 6.3-8.0 g/dL LAB 1751-7(LOINC) Albumin SerPl-mCnc 4.5 3.9-4.9 g/dL LAB 16185-5(LOINC) Calcium SerPl-mCnc 9.6 8.5-10.2 mg/dL LAB 1975-2(LOINC) Bilirub SerPl-mCnc 0.3 0.2-1.3 mg/dL LAB 6768-6(LOINC) ALP SerPl-cCnc 90 34-123 U/L LAB 1920-8(LOINC) AST SerPl-cCnc 15 13-35 U/L LAB 1742-6(LOINC) ALT SerPl-cCnc 14 7-38 U/L LAB 2345-7(LOINC) Glucose SerPl-mCnc 72 Low 74-99 mg/dL Result Comment: The [place] Diabetes Association (ADA) provides guidance for cutoff [...] Standards of Medical Care in Diabetes 2016, [place] Diabetes Association. Diabetes Care. 2016.39(Suppl 1). LAB 3094-0(LOINC) BUN SerPl-mCnc 11 7-21 mg/dL LAB 2160-0(LOINC) Creat SerPl-mCnc 0.71 0.58-0.96 mg/dL LAB 2951-2(LOINC) Sodium SerPl-sCnc 139 136-144 mmol/L LAB 2823-3(LOINC) Potassium SerPl-sCnc 4.1 3.7-5.1 mmol/L LAB 2075-0(LOINC) Chloride SerPl-sCnc 101 98-107 mmol/L LAB 2027-9(LOINC) CO2 SerPl-sCnc 25 22-30 mmol/L LAB 46904-1(LOINC) Anion Gap SerPl-sCnc 13 8-15 mmol/L LAB 34183-5(LOINC) eGFRcr SerPlBld CKD-EPI 2020 124 >=60 mL/min/1. [...] accurately reflect actual GFR. Performed By: #### 22692-0 # ### [facility] CLIA [id number] [address] [place] [address] STATES OF LO CBC W AUTO DIFF BLD Collected: 02/14/2025 4:[address] atus: F Source: [facility] Order Comment: Specimen Type : BLOOD SPECIMEN Ordering Facility: [facility] Address: [address] [place] [address] TYPE CODE TESTS RESULT OUT OF RANGE [...] MCHC RBC Auto-mCnc 34.5 30.5-36.0 g/dL LAB 75023-6(LOINC) RDW RBC-Rto 12.0 11.5-15.0 % LAB 777-3(LOINC) Platelet # Bld Auto 304 150-400 k/uL LAB 40182-7(LOINC) PMV Bld Auto 10.5 9.0-12.7 fL LAB [...] # Bld Auto 0.03 <0.11 k/uL LAB 89787-6(LOINC) Imm Granulocytes/blanca k NFr Bld Auto 0.3 % LAB 17631-4(LOINC) Imm Granulocytes # Bld Auto <0.03 <0.10 k/uL LAB 05536-3(LOINC) nRBC/100 WBC Bld-Rto 0.0 /100 WBC LAB 771-6(LOINC) nRBC # Bld Auto <0.01 <0.01 k/u L LAB 34874-3(LOINC) Differential method Bld Auto Performed By: #### 71577-9 # ### [facility] CLIA [id number] [address] [place] [address] OF [facility] CNOV Observed: 02/14/2025 4:30 PM Status: COMPLETED Source: [facility] Office Visit ([facility]) SHAWANDA BRINK ([id number]) 1 F Date Time Provider Department 02/14/25 4:30 PM JAMAL CORTEZ During your visit today, we recorded the following information about you: Temperature Pulse Respiration Blood pressure 97.3 degrees 87/minute 18/minute 135/85 Weight 75.6 kg Jamal Cortez APRN.CNP 02/14/2025 7:09 PM Signed URGENT CARE [facility] [...] of care. This note was generated using [employer] software. It may contain errors in wording, punctuation, or spelling. Jamal Cortez APRN.SUPERVISOR WOOD [employer]W History and Record Review Clinical information obtained from an independent historian. History obtained from or confirmed by: parent. External record(s) reviewed: prior outpatient record. Disposition The patient was discharged. Procedures Allergies As of Date: 02/14/2025 Noted Allergy Reaction CELEXA (CITALOPRAM) 03/21/2024 14 - Other: See Comments Comments: Tunnel vision LEXAPRO (ESCITALOPRAM) 03/21/2024 2 - Rash Date Reviewed: 02/14/2025 Reviewed by: Jamal Cortez APRN.SUPERVISOR [employer] - Fully Assessed Reason for Visit: Sore Throat [200] Cmt: Fever, AKERS, neck pain, pressure in ears and dizziness x8 days Primary Visit Diagnosis:Pharyngitis, unspecified etiology [J02.9] Other Visit Diagnosis:Viral illness [B34.9] Order(s):MONOTEST, INFECTIOUS MONO [SQMONOLX] Order #: [id number] FUTURE COMPLETE BLOOD COUNT AND DIFFERENTIAL [SQCBCDIF] Order #: [id number] FUTURE COMPREHENSIVE METABOLIC PANEL [SQCMP] Order #: [id number] FUTURE Prescriptions as of 02/14/2025 - meclizine [...] 08/04/2021 Level of Service: OFFICE/OUTPATIENT ESTABLISHED LOW [facility] 20 MIN [55498] Encounter Status:Closed by JAMAL CORTEZ on 02/14/25 PROGRESS Observed: 02/14/2025 4:15 PM Status: COMPLETED Source: [facility] HNO ID: [id number] Author: JAMAL CORTEZ APRN.SUPERVISOR [employer] Service: ? Author Type: Nurse Practitioner Type: [...] of care. This note was generated using [employer] software. It may contain errors in wording, punctuation, or spelling. Jamal Cortez APRN.SUPERVISOR [employer]W History and Record Review Clinical information obtained from an independent historian. History obtained from or confirmed by: parent. External record(s) reviewed: prior outpatient record. Disposition The patient was discharged. Procedures CNPN Observed: 02/14/2025 12:00 AM Status: COMPLETED Source: [facility] Telephone ([facility]) SHAWANDA BRINK ([id number]) 1 F Date Time Provider Department 02/14/25 ISSAC FERNÁNDEZ [facility] During your visit today, we recorded the [...] Observed: 02/10/2025 2:28 PM Status: COMPLETED Source: [facility] ID: [id number] Author: SIERRA ALTAMIRANO APRN.SUPERVISOR [employer] Service: ? Author Type: Nurse Practitioner Type: Progress Notes Filed: 02/10/2025 14:31 Note Text: Subjective Shawanda Brink is a 19 year old female. The history is provided by the patient. No residential treatment specialist was used. HPI Shawanda Brink is a [...] from review of inpatient records: ER record [facility] 02/08 Systemic symptoms present included: fever Differential [...] detail warranting prompt ER evaluation. Sierra Altamirano APRN.SUPERVISOR WO[employer]W CNOV Observed: 02/10/2025 1:00 PM Status: COMPLETED Source: [facility] Office Visit ([facility]) SHAWANDA BRINK ([id number]) 1 F Date Time Provider Department 02/10/25 1:00 PM SIERRA ALTAMIRANO During your visit today, we recorded the following information about you: Temperature Pulse Respiration Blood pressure 98.2 degrees 89/minute 18/minute 121/87 Weight 75.7 kg Sierra Altamirano APRN.CNP 02/10/2025 1:20 PM Signed Make sure to [...] also be helpful for pain. Sierra Altamirano APRN.CNP 02/10/2025 2:31 PM Signed Subjective Shawanda Brink is a 19 year old female. The history is provided by the patient. No residential treatment specialist was used. HPI Shawanda Brink is a [...] from review of inpatient records: ER record [facility] Thursday 02/08 Systemic symptoms present included: fever [...] detail warranting prompt ER evaluation. Sierra Altamirano APRN.SUPERVISOR WO[employer]W Allergies As of Date: 02/10/2025 Noted Allergy Reaction CELEXA (CITALOPRAM) 03/21/2024 14 - Other: See Comments Comments: Tunnel vision LEXAPRO (ESCITALOPRAM) 03/21/2024 2 - Rash Date Reviewed: 02/10/2025 Reviewed by: Janett Pino MA - Fully Assessed Reason for Visit: Sore Throat [200] Cmt: Bodyaches, fever x3 days Primary Visit Diagnosis:Strep pharyngitis [J02.0] Other Visit Diagnosis:Sore throat [J02.9] Order(s):STREP A MOLECULAR (POC) [0226067] Order #: [id number]. #:[id number] amoxicillin (AMOXIL) 500 mg capsuleTake 1 capsule [...] Observed: 02/07/2025 11:18 AM Status: COMPLETED Source: [facility] HNO ID: [id number] Author: JANETT PINO MA Service: ? Author Type: Garnett Mechanic Type: Progress Notes Filed: 02/07/2025 11:42 Note [...] Observed: 02/07/2025 10:31 AM Status: COMPLETED Source: [facility] HNO ID: [id number] Author: DEEJAY, ROHAN, AUTISTIC TEACHER.SUPERVISOR [employer]W Service: ? Author Type: Nurse Practitioner Type: Progress Notes Filed: 02/07/2025 11:42 Note Text: Subjective Patient ID: Shawanda is a 19 year old female who presents for Ear Problem (Bilateral ear pressure x4 days, head pressure x1 month). The history is provided by the patient. No residential treatment specialist was used. Patient presents to from home [...] Maternal Grandmother Cervical Cancer Maternal Grandmother other (ND) Maternal Grandfather 49 other (depression and anxiety) [...] and frontal sinus tenderness present. Mouth/Throat: Lips: [place]. No lesions. Mouth: Mucous membranes are moist. [...] ears Deyanira Hung NP student TEACHING PROVIDER (Physician/PA/AUTISTIC TEACHER) NOTE OF PERSONAL INVOLVEMENT IN CARE: I have personally seen and examined the patient and performed the medical decision-making components. I have reviewed the Advanced Practice Registered Nurse (AUTISTIC TEACHER) Student's documentation and verified the findings in the note as written. Any additions or changes are noted in bold/italics. Signature: Rohan Villalba Date: 02/07/2025 Time: 11:41 AM CNOV Observed: 02/07/2025 10:30 AM Status: COMPLETED Source: [facility] Office Visit (WOUCA) SHAWANDA BRINK ([id number]) 1 F Date Time Provider Department 02/07/25 10:30 AM ROHAN VILLALBA During your visit today, we recorded the following information about you: Temperature Pulse Respiration Blood pressure 97.7 degrees 81/minute 18/minute 126/83 Weight 77 kg Rohan Villalba APRN.[facility] 02/07/2025 11:42 AM Signed Subjective Patient ID: Shawanda is a 19 year old female who presents for Ear Problem (Bilateral ear pressure x4 days, head pressure x1 month). The history is provided by the patient. No residential treatment specialist was used. Patient presents to from home [...] Maternal Grandmother Cervical Cancer Maternal Grandmother other (ND) Maternal Grandfather 49 other (depression and anxiety) [...] and frontal sinus tenderness present. Mouth/Throat: Lips: [place]. No lesions. Mouth: Mucous membranes are moist. [...] ears Deyanira Hung NP student TEACHING PROVIDER (Physician/PA/AUTISTIC TEACHER) NOTE OF PERSONAL INVOLVEMENT IN CARE: I have personally seen and examined the patient and performed the medical decision-making components. I have reviewed the Advanced Practice Registered Nurse (AUTISTIC TEACHER) Student's documentation and verified the findings in [...] Order(s): REMOVAL OF IMPACTED CERUMEN - INSTRUMENTATION [33094TWA] Order #: [id number] amoxicillin-clavulanate potassium (AUGMENTIN) 875-125 mg per tabletTake [...] Observed: 01/31/2025 8:30 AM Status: F Source: [facility] * * *Final Report* * * DATE OF EXAM: Jan 31 2025 8:30AM [facility] 0294 - MRI BRAIN WO IVCON / [...] Unremarkable appearance of the cerebral white matter. Refrigeration Lead: PSCB Transcribe Date/Time: Jan 31 2025 8:48A Dictated by : ISSAC GEIGER MD This examination was interpreted and the report reviewed and electronically signed by: ISSAC GEIGER MD on Jan 31 2025 8:52AM EST [id number] PROGRESS Observed: 01/31/2025 8:00 AM Status: COMPLETED Source: [facility] HNO ID: [id number] Author: DAVID TOLEDO RT(R) Service: ? Author [...] PATIENT PRESENTS WITH AN IMPLANTABLE OR ATTACHED AGRICULTURAL SERVICE TECHNICIAN: No RADIOLOGY DEPARTMENT: MR; Exam(s) Completed: Head: Routine Brain. Aromatherapy Administered: No PERIPHERAL IV DATA: Not applicable SIGNED BY: RT Agustina(R) January 31, 2025 8:03 AM PROGRESS Observed: 01/25/2025 10:11 AM Status: COMPLETED Source: [facility] HNO ID: [id number] Author: ISSAC FERNÁNDEZ MD Service: ? Author Type: Physician Type: Progress Notes Filed: 01/25/2025 10:46 Note Text: Chief Complaint Patient presents with: Follow Up Recording using PRX software for draft documentation of the visit was discussed with the patient/authorized outside sales representative; all questions welcomed and answered. 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 Past medical history, appointments, medications, allergies reviewed. [...] Maternal Grandmother Cervical Cancer Maternal Grandmother other (ND) Maternal Grandfather 49 other (depression and anxiety) [...] Abs Lymph 1.00 - 4.00 k/uL 2.32 [place]% % 5.4 Abs [place] <0.87 k/uL 0.42 Eosin% % 3.1 Abs [...] mg PO at bedtime; prescription sent to [facility]. - Follow-up in 3 months to re-evaluate [...] Observed: 01/25/2025 10:00 AM Status: COMPLETED Source: [facility]AW[facility] ([id number]) 1 F Date Time Provider Department 01/25/25 10:00 AM ISSAC FERNÁNDEZ During your visit today, we recorded the following information about you: Pulse Blood pressure Weight Height 72/minute 120/86 76.8 kg 1.647 m Issac Fernández MD 01/25/2025 10:46 AM Signed Chief Complaint Patient presents with: Follow Up Recording using PRX software for draft documentation of the visit was discussed with the patient/authorized outside sales representative; all questions welcomed and answered. 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 Past medical history, appointments, medications, allergies reviewed. [...] Maternal Grandmother Cervical Cancer Maternal Grandmother other (ND) Maternal Grandfather 49 other (depression and anxiety) [...] Plan due on 08/27/2023 Covid-19 Vaccine( - 2023- season) Never done Cervical Cancer Screening Never [...] Abs Lymph 1.00 - 4.00 k/uL 2.32 [place]% % 5.4 Abs [place] <0.87 k/uL 0.42 Eosin% % 3.1 Abs [...] mg PO at bedtime; prescription sent to [facility]. - Follow-up in 3 months to re-evaluate [...] supply with refills has been sent to [facility] in [place]. Let us know if your headaches return [...] Dizziness and giddiness [R42] Order(s):CONSULT TO NEUROLOGY [9019] Order #: [id number]: 1 FUTURE [facility] [[id number]] Order #: [id number] FUTURE amitriptyline (ELAVIL) 10 mg tabletTake 1 [...] supply with refills has been sent to [facility] in [place]. Let us know if your headaches return [...] for Encounter Date Provider Department Center 01/25/2025 [id number] FERNÁNDEZ [facility] Encounter Status:Closed by ISSAC FERNÁNDEZ on 01/25/25 CNPN Observed: 01/11/2025 12:00 AM Status: COMPLETED Source: [facility] Telephone (DON) SHAWANDA BRINK ([id number]) 1 F Date Time Provider Department 01/11/25 [...] 10:12 AM Signed Per provider Veronica Muse BUSINESS OBJECTS ARCHITECT, See if they can reschedule the ECHO [...] Assessed Reason for Visit: Patient Question [1477] Prescriptions as of 01/11/2025 - propranolol (INDERAL) [...] 12/28/2024 8:[address] atus: F Source: [facility] Order Comment: Specimen Type : BLOOD SPECIMEN Ordering Facility: [facility] Address: [address] [place] [address] TYPE CODE TESTS RESULT OUT OF RANGE [...] MCHC RBC Auto-mCnc 32.6 30.5-36.0 g/dL LAB 61139-5([facility]) RDW RBC-Rto 12.8 11.5-15.0 % LAB 777-3([facility]) Platelet # Bld Auto 341 150-400 k/uL LAB 00895-1([facility]) PMV Bld Auto 11.1 9.0-12.7 fL LAB 770-8([facility]) Neutrophils/leuk NFr Bld Auto 60.9 % LAB 751-8([facility]) Neutrophils # Bld Auto 4.75 1.45-7.50 k/uL LAB 736-9([facility]) Lymphocytes/leuk NFr Bld Auto 29.8 % LAB 731-0([facility]) Lymphocytes # Bld Auto 2.32 1.00-4.00 k/uL LAB 5905-5([facility]) Monocytes/leuk NFr Bld Auto 5.4 % LAB 742-7([facility]) Monocytes # Bld Auto 0.42 <0.87 k/uL LAB 713-8([facility]) Eosinophil/leuk NFr Bld Auto 3.1 % LAB 711-2([facility]) Eosinophil # Bld Auto 0.24 <0.46 k/uL LAB 706-2([facility]) Basophils/leuk NFr Bld Auto 0.5 % LAB 704-7([facility]) Basophils # Bld Auto 0.04 <0.11 k/uL LAB 55601-5([facility]) Imm Granulocytes/blanca k NFr Bld Auto 0.3 % LAB 48403-7([facility]) Imm Granulocytes # Bld Auto <0.03 <0.10 k/uL LAB 21554-1([facility]) nRBC/100 WBC Bld-Rto 0.0 /100 WBC LAB 771-6([facility]) nRBC # Bld Auto <0.01 <0.01 k/u L LAB 35884-7([facility]) Differential method Bld Auto Performed By: #### 06140-8 # ### [facility] CLIA [id number] [address] [place] [address] [place] COMP METAB 2000 PNL SERPL Collected: 8:19 AM Status: F Source: [facility] Order Comment: Specimen Type : BLOOD SPECIMEN Ordering Facility: [facility] Address: [facility] [place] [address] TYPE CODE TESTS RESULT OUT OF RANGE REFERENCE UNITS LAB 2885-2(LOINC) Prot SerPl-mCnc 7.5 6.3-8.0 g/dL LAB 1751-7(LOINC) Albumin SerPl-mCnc 4.3 3.9-4.9 g/dL LAB 08043-2(LOINC) Calcium SerPl-mCnc 9.7 8.5-10.2 mg/dL LAB 1975-2(LOINC) Bilirub SerPl-mCnc 0.3 0.2-1.3 mg/dL LAB 6768-6(LOINC) ALP SerPl-cCnc 108 34-123 U/L LAB 1920-8(LOINC) AST SerPl-cCnc 13 13-35 U/L LAB 1742-6(LOINC) ALT SerPl-cCnc 13 7-38 U/L LAB 2345-7(LOINC) Glucose SerPl-mCnc 80 74-99 mg/dL Result Comment: The [place] Diabetes Association (ADA) provides guidance for cutoff [...] Standards of Medical Care in Diabetes 2016, [place] Diabetes Association. Diabetes Care. 2016.39(Suppl 1). LAB 3094-0(LOINC) BUN SerPl-mCnc 14 7-21 mg/ dL LAB 2160-0(LOINC) Creat SerPl-mCnc 0.70 0.58-0.96 mg/dL LAB 2951-2(LOINC) Sodium SerPl-sCnc 140 136-144 mmol/L LAB 2823-3(LOINC) Potassium SerPl-sCnc 3.9 3.7-5.1 mmol/L LAB 2075-0(LOINC) Chloride SerPl-sCnc 104 98-107 mmol/L LAB 2027-9(LOINC) CO2 SerPl-sCnc 25 22-30 mmo l/L LAB 66588-4(LOINC) Anion Gap SerPl-sCnc 11 8-15 mmol/L LAB 68129-7(LOINC) Creatinine + eGFR Pnl SerPlBld 126 >=60 [...] GFR. Performed By: #### 3016-3, 1 9123-9, 87115-5 #### [facility] CLIA [id number] [address] [place] [address] STATES OF [facility] MAGNESIUM SERPL-MCNC Collected: 12/28/2024 8:19 AM S tatus: F Source: [facility] Order Comment: Specimen Type : BLOOD SPECIMEN Ordering Facility: [facility] Address: [address] [place] [address] TYPE CODE TESTS RESULT OUT OF RANGE REFERENCE UNITS LAB 15485-3([facility]) Magnesium SerPl-mCnc 2.1 1.7-2.3 mg/dL Performed By: #### 3016-3, 1 23-9, 67046-8 #### [facility] CLIA [id number] [address] [place], [place] [address] [place] LO TSH SERPL-ACNC Collected: 8:19 AM Status: F Source: [facility] Order Comment: Specimen Type : BLOOD SPECIMEN Ordering Facility: [facility] Address: [address] [place] [address] TYPE CODE TESTS RESULT OUT OF RANGE REFERENCE UNITS LAB 3016-3([facility]) TSH SerPl-aCnc 1.190 0.270-4.200 mIU/L Result Comment: [...] Choe, et al. 2017 Guidelines of the [place] Thyroid Association for the Diagnosis and Management of Thyroid Disease during and the . Thyroid, 2017:27:3:315-389. Performed By: #### 3016-3, 1 9123-9, 25288-2 #### [facility] CLIA [id number] [address] [place] [address] OF [facility] ECG COMPLETE Observed: 12/27/2024 12:37 PM Status: F Source: [facility] Ventricular Rate : 73 BPM Atrial Rate : 73 BPM P-R Interval : 136 ms QRS Duration : 82 ms Q-T Interval : 394 ms QTC Calculation(Bazett) : 434 ms Calculated P [place] : 41 degrees Calculated R [place] : 7 degrees Calculated T [place] : 34 degrees NORMAL SINUS RHYTHM WITH SINUS ARRHYTHMIA NORMAL ECG Confirmed by MD MCCALL QARAB ([id number]) on 12/31/2024 11:01:42 AM NAME : SHAWANDA BRINK PID : [id number] : 2005 Gender : Female Race : ORD : [id number] Procedure Date : Dec 27 2024 12:37:06 Edit Date : Dec 31 2024 11:01:47 Diagnosis: NORMAL SINUS RHYTHM WITH SINUS ARRHYTHMIA NORMAL ECG Confirmed by MD MCCALL QARAB ([id number]) on 12/31/2024 11:01:42 AM Test Reason : R00.2 Palpitations Location : 136 : [place] Overread By : MD MCCALL QARAB Edited By : MD MCCALL QARAB Referred By : , Acquired by : KEYANA CHRISTIANSON Observed: 12/27/2024 12:20 PM Status: COMPLETED Source: [facility] Office Visit (FAMPWS) SHAWANDA BRINK ([id number]) 1 F Date Time Provider Department 12/27/24 12:20 PM [facility] During your visit today, we recorded the following information about you: Pulse Blood pressure Weight Height 80/minute 104/84 78 kg 1.647 m Issac Fernández MD 12/27/2024 1:15 PM Signed Chief Complaint Patient presents with: Migraine Tachycardia Recording using PRX software for draft documentation of the visit was discussed with the patient/authorized outside sales representative; all questions welcomed and answered. Patient/authorized outside sales representative agreed to proceed HPI Shawanda Brink [...] of gestational diabetes. - Previous evaluation by [facility] in September or October 2022; [...] Maternal Grandmother Cervical Cancer Maternal Grandmother other (ND) Maternal Grandfather 49 other (depression and anxiety) [...] which included preparing to see the patient, kiue-ce-vbex patient care, completing clinical documentation, obtaining and/or [...] condoms during sexual intercourse or follow up [facility] SURGICAL ASSIST to discuss control options. If you were to become or are trying to become , please notify our office right away. - Check in at the front end software developer and go to the lab today for your blood tests. - helpdesk administrator will schedule your heart ultrasound (echocardiogram) and [...] BLOOD COUNT AND DIFFERENTIAL [SQCBCDIF] Order #: [id number] FUTURE COMPREHENSIVE METABOLIC PANEL [SQCMP] Order #: [id number] FUTURE THYROID STIMULATING HORMONE [SQTSH] Order #: [id number] FUTURE MAGNESIUM [SQMG1] Order #: [id number] FUTURE HCG QUAL UR B/O [1004180] Order #: [id number] ECG COMPLETE [ECG01] Order #: [id number]. #:[id number]--HGGHodv ECHO [246709] Order #: [id number]: 1 FUTURE UA DIP,URINE HCG (POC) [4863534] Order #: [id number]. #:[id number] OUTSIDE VENDOR CARDIAC OUTPATIENT EXTENDED RHYTHM RECORDING (WITHOUT TELEMETRY) [6849379] Order #: [id number]: 1 Prescriptions as of 12/27/2024 - propranolol [...] MA 12/27/2024 12:00 PM >> NASIMA GUTHRIE [facility] Dec 27, 2024 12:00 PM Has not [...] during sexual intercourse or follow up wtih SURGICAL ASSIST to discuss control options. If you were to become or are trying to become , please notify our office right away. - Check in at the front end software developer and go to the lab today for your blood tests. - helpdesk administrator will schedule your heart ultrasound (echocardiogram) and [...] Observed: 12/27/2024 12:17 PM Status: COMPLETED Source: [facility] ID: [id number] Author: ISSAC FERNÁNDEZ MD Service: ? Author Type: Physician Type: Progress Notes Filed: 12/27/2024 13:15 Note Text: Chief Complaint Patient presents with: Migraine Tachycardia Recording using ambient [employer] software for draft documentation of the visit was discussed with the patient/authorized outside sales representative; all questions welcomed and answered. Patient/authorized outside sales representative agreed to proceed HPI Shawanda Brink [...] of gestational diabetes. - Previous evaluation by [facility] in September or October 2022; [...] Maternal Grandmother Cervical Cancer Maternal Grandmother other (ND) Maternal Grandfather 49 other (depression and anxiety) [...] which included preparing to see the patient, [id number] patient care, completing clinical documentation, obtaining and/or reviewing separately obtained history, performing a medically appropriate examination, counseling and educating the patient/family/caregiver, ordering medications, tests, or procedures, independently interpreting results (not separately reported), and communicating results to the patient/family/caregiver. Issac Fernández MD PROCEDURE Observed: 12/27/2024 11:55 AM Status: COMPLETED Source: [facility] HNO ID: [id number] Author: MINDY BORREGO MD Service: ? Author [...] Observed: 11/30/2024 10:26 AM Status: COMPLETED Source: [facility] HNO ID: [id number] Author: VERONICA MUSE APRN.SUPERVISOR [employer] Service: ? Author Type: Nurse Practitioner Type: Progress Notes Filed: 11/30/2024 10:59 Note Text: 11/30/2024 Patient presents with: Headache: Another that started this AM. Has been having one x8 days Recording using ambient [employer] software for draft documentation of the visit was discussed with the patient/authorized outside sales representative; all questions welcomed and answered. Patient/authorized outside sales representative agreed to proceed SUBJECTIVE: This is [...] Z39.1 - plan as above Veronica Muse APRN.SUPERVISOR [employer] Prescription instructions reviewed with patient as applicable. [...] Observed: 11/30/2024 10:20 AM Status: COMPLETED Source: [facility] SHAWANDA BRINK ([id number]) 1 F Date Time Provider Department 11/30/24 10:20 AM VERONICA MUSE During your visit today, we recorded the following information about you: Pulse Respiration Blood pressure Weight 66/minute 16/minute 108/86 78.2 kg Veronica Muse APRN.SUPERVISOR [employer]W 11/30/2024 10:59 AM Signed 11/30/2024 Patient presents with: Headache: Another that started this AM. Has been having one x8 days Recording using PRX software for draft documentation of the visit was discussed with the patient/authorized outside sales representative; all questions welcomed and answered. Patient/authorized outside sales representative agreed to proceed SUBJECTIVE: This is [...] V24.1, ICD10: Z39.1 - plan as above Vernoica Muse APRN.SUPERVISOR [employer] Prescription instructions reviewed with patient as applicable. [...] without status migrainosus [G43.119] Mother currently breast-feeding (HCC) [Z39.1] Order(s):SUMAtriptan (IMITREX) 50 mg tabletTake 1 [...] for Encounter Date Provider Department Center 11/30/2024 [id number] MUSE [facility] Encounter Status:Closed by VERONICA MUSE on 11/30/24 PROGRESS Observed: 11/22/2024 8:13 AM Status: COMPLETED Source: [facility] HNO ID: [id number] Author: MAXINE ELLIS APRN.SUPERVISOR [employer] Service: ? Author Type: Nurse Practitioner Type: Progress Notes Filed: 11/22/2024 08:14 Note Text: Patient did not log in for her virtual appointment with the provider. BACTERIA UR CULT Observed: 11/06/2024 9:34 AM Status: F Source: [facility] ORGANISM ID: 1 10,000 -<50,000 CFU/ml Normal urogenital johnathan Performed By: #### 630-4 ### # [facility] CLIA [id number] [address] [place] [address] [place] CRISTEL/TRICHOMONAS NAAT Collected: 9:34 AM Status: F Source: [facility] Comment: Specimen Type : SWAB Ordering Facility: [facility] Address: [address] [place] [address] TYPE CODE TESTS RESULT OUT OF RANGE REFERENCE UNITS LAB 82495-7(LOINC ) Cristel DNA Vag Ql REYNALDO+probe Not detected Not detected Result Comment: The Cristel species group target includes C. albicans, C. tropicalis, C. parapsilosis, and C. dubliniensis. LAB 04980-4(LOINC ) C glabrata RNA Vag Ql REYNALDO+probe Not detected Not detected LAB 49746-1(LOINC ) T vaginalis DNA Spec Ql REYNALDO+probe Not detected Not detected Performed By: #### BVAMP, CV TV #### [facility] CLIA [id number] [address] [place] [address] STATES OF LO BACTERIAL VAGINOSIS NAAT Collected: 9:34 AM Status: F Source: [facility] Comment: Specimen Type : SWAB Ordering Facility: [facility] Address: [address] [place] [address] TYPE CODE TESTS RESULT OUT OF RANGE REFERENCE UNITS LAB 34821-7(LOINC) BV bacteria rRNA Vag Ql REYNALDO+probe Not detected Not detected Performed By: #### BVAMP, CV TV #### [facility] CLIA [id number] [address] [place] [address] [place] PROGRESS Observed: 11/06/2024 9:04 AM Status: COMPLETED Source: [facility] HNO ID: [id number] Author: JAMLA CORTEZ APRN.SUPERVISOR [employer]W Service: ? Author Type: Nurse Practitioner Type: [...] Maternal Grandmother Cervical Cancer Maternal Grandmother other (ND) Maternal Grandfather 49 other (depression and anxiety) [...] of care. This note was generated using [employer] software. It may contain errors in wording, punctuation, or spelling. Jamal Cortez APRN.SUSANA CNOV Observed: 11/06/2024 8:45 AM Status: COMPLETED Source: [facility] Office Visit (WSTR) SHAWANDA BRINK ([id number]) 1 F Date Time Provider Department 11/06/24 8:45 AM JAMAL CORTEZ RORY During your visit today, we recorded the following information about you: Temperature Pulse Respiration Blood pressure 98.1 degrees 72/minute 16/minute 120/76 Weight 79.2 kg Jamal Cortez APRN.CNP 11/06/2024 9:31 AM Signed Subjective HPI Nontoxic-appearing [...] Maternal Grandmother Cervical Cancer Maternal Grandmother other (ND) Maternal Grandfather 49 other (depression and anxiety) [...] of care. This note was generated using [employer] software. It may contain errors in wording, punctuation, or spelling. Jamal Cortez APRN.SUPERVISOR [employer]W Allergies As of Date: 11/06/2024 Noted Allergy Reaction CELEXA (CITALOPRAM) 03/21/2024 14 - Other: See Comments Comments: Tunnel vision LEXAPRO (ESCITALOPRAM) 03/21/2024 2 - Rash Date Reviewed: 11/06/2024 Reviewed by: Jamal Cortez APRN.SUPERVISOR [employer]W - Fully Assessed Reason for Visit: Urinary Frequency [1086] Cmt: urgency and low back pain, requesting hcg- Primary Visit Diagnosis:Urinary frequency [R35.0] Other Visit Diagnosis:Low back pain with sciatica, sciatica laterality unspecified, unspecified back pain laterality, unspecified chronicity [M54.40] Order(s):UA DIP, URINE (POC) [2773406] Order #: [id number]. #:[id number] HCG QUAL UR B/O [4496494] Order #: [id number] BACTERIAL CULTURE, URINE [SQURCUL] Order #: [id number]. #:[id number] UA DIP,URINE HCG (POC) [5111822] Order #: [id number]. #:[id number] CRISTEL/TRICHOMONAS NAAT [SQCVTV] Order #: [id number]. #:[id number] BACTERIAL VAGINOSIS NAAT [SQBVAMP] Order #: [id number]. #:[id number] Prescriptions as of 11/06/2024 - FLUoxetine (PROZAC) 20 mg capsule Take 1 capsule by mouth once daily. Problem List As Of Date 11/06/2024 Noted Resolved Acne vulgaris [L70.0] 08/18/2015 Mild persistent asthma without complication [J4*09/27/2016 Flat foot [M21.40] 07/20/2017 Influenza vaccine refused [Z28.21] 07/20/2017 Depression [F32.A] 08/04/2021 Generalized anxiety disorder [F41.1] 08/04/2021 Level of Service: OFFICE/OUTPATIENT ESTABLISHED LOW MDM 20 MIN [30000] Encounter Status:Closed by JAMAL CORTEZ on 11/06/24 PROGRESS Observed: 11/01/2024 9:04 AM Status: COMPLETED Source: [facility] HNO ID: [id number] Author: ?, ?, ? Service: ? Author Type: LICENSED NURSE Type: Progress Notes Filed: 11/01/2024 09:05 Note Text: Patient presents for Hepatitis B vaccine. Denies any problems at this time. Tolerated injection well. Meenakshi Spangler LPN CNNURSE Observed: 11/01/2024 8:45 AM Status: COMPLETED Source: [facility]AW[facility] ([id number]) 1 F Date Time Provider Department 11/01/24 8:45 AM ND NURSE DON During your visit today, we [...] Encounter Status:Closed by MEENAKSHI SPANGLER on 11/01/24 SUSANAN Observed: 10/29/2024 12:00 AM Status: COMPLETED Source: [facility] Telephone (PSWSTR) SHAWANDA BRINK ([id number]) 1 F Date Time Provider Department 10/29/24 MAXINE ELLIS PSTR During your visit today, we recorded the following information about you: Queta Mccarty LPN 10/29/2024 2:19 PM Signed Labs scanned to chart for you to review. SHIRA Diaz Nishi J, AUTISTIC TEACHER.[facility] 10/29/2024 4:07 PM Signed Reviewed lab results. [...] Encounter Status:Closed by QUETA MCCARTY on 10/30/24 MARS Observed: 10/23/2024 12:00 AM Status: COMPLETED Source: [facility] SHAWANDA BRINK ([id number]) 1 F Date Time Provider Department 10/23/24 ISSAC FERNÁNDEZ During your visit today, we recorded the following information about you: Antoinette Burgess RN 10/23/2024 12:12 PM Signed Patient calls and states that she had Hepatitis B titers done at [facility]. Patient reports that titers showed that [...] 3-DOSE, AGE 20+ YR (ENGERIX-B, RECOMBIVAX HB) [63906VIM] Order #: [id number] HEP B VACCINE, 3-DOSE, AGE 20+ YR (ENGERIX-B, RECOMBIVAX HB) [81223BIT] Order #: [id number] FUTURE HEP B VACCINE, 3-DOSE, AGE 20+ YR (ENGERIX-B, RECOMBIVAX HB) [36563IQZ] Order #: [id number] FUTURE Prescriptions as of 10/24/2024 - FLUoxetine [...] Observed: 10/18/2024 8:11 AM Status: COMPLETED Source: [facility] HNO ID: [id number] Author: MAXINE ELLIS APRN.SUPERVISOR WOOD CREW Service: ? Author Type: Nurse Practitioner Type: [...] visit. 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 Complete the [facility] lab work for monitoring. Focus on [...] in the past month. Was going to [place]. Encouraged to reach out to them again to schedule an appointment. She shares that she has completed some blood work at [facility] and will be able to share those [...] Ellis APRN.SUSANA PATIENT NAME: Shawanda Brink DATE: October 18, 2024 TIME: 8:12 AM OCC (LAB) Collected: 1:15 PM Status: F Source: [facility] MAIN TYPE CODE TESTS RESULT OUT OF RANGE REFERENCE UNITS LAB OCC(LOINC) Occult Blood Fecal Negative Negative Result Comment: This test ut ilizes the guaiac fecal blood method, which detects peroxidase activity (heme) indicating bleeding from stomach, small intestine, or large intestine. If bleeding from either upper or lower gastrointestinal tract is a clinical consideration, the [facility] recommends the use of both the guaiac fecal blood test and the Immunochemical fecal blood test. Performed By: #### OCC #### [place] [address] CMP Collected: 10/09/2024 8:59 AM Status: F Source: [facility] MAIN TYPE CODE TESTS RESULT OUT OF [...] mg/dL Result Comment: Testing perf ormed on Semantria analyzer using enzymatic creatinine methodology. LAB BC(LOINC) [...] C, ANEU, GFR, ADIFF, CMP, HCV1 #### [place] [address] .GFR Collected: 10/09/2024 8:59 AM Status: F Source: [facility] MAIN TYPE CODE TESTS RESULT OUT OF [...] C, ANEU, GFR, ADIFF, CMP, HCV1 #### [place] [address] LIPID Collected: 10/09/2024 8:59 AM Status: F Source: [facility] MAIN TYPE CODE TESTS RESULT OUT OF [...] C, ANEU, GFR, ADIFF, CMP, HCV1 #### [place] [address] HCV Collected: 8:59 AM Status: F Source: [facility] MAIN TYPE CODE TESTS RESULT OUT OF [...] C, ANEU, GFR, ADIFF, CMP, HCV1 #### [address] [address] CBC Collected: 8:59 AM Status: F Source: [facility] MAIN TYPE CODE TESTS RESULT OUT OF [...] C, ANEU, GFR, ADIFF, CMP, HCV1 #### [address] [address] .AUTO DIFF Collected: 10/09/2024 8:59 AM Status: F Source: [facility] MAIN TYPE CODE TESTS RESULT OUT OF [...] C, ANEU, GFR, ADIFF, CMP, HCV1 #### [place] [id number] .NEUABS Collected: 8:59 AM Status: F Source: [facility] TYPE CODE TESTS RESULT OUT OF RANGE REFERENCE UNITS LAB ANEU(LOINC) Neutrophil, Absolute 4.7 2.3-8.1 10 3/mcL Performed By: #### LIPID, CB C, ANEU, GFR, ADIFF, CMP, HCV1 #### [place] [address] PROGRESS Observed: 09/25/2024 8:53 AM Status: COMPLETED Source: [facility] HNO ID: [id number] Author: MAXINE ELLIS APRN.SUPERVISOR WOOD CREW Service: ? Author Type: Nurse Practitioner Type: Progress Notes Filed: 09/25/2024 08:54 Note Text: Patient cancelled the appointment right before her appointment with the provider. FLUABV+SARS-COV-2+RSV PNL RE SP REYNALDO+PROBE Observed: 09/12/2024 4:51 PM Status: F Source: [facility] SARS-COV-2 (AGENT OF COVID-1 9) RNA: Not detectedINFLUENZA A RNA: Not detectedINFLUENZA B RNA: Not detectedRESPIRATORY SYNCYTIAL VIRUS (RSV) RNA: Not detected Performed By: #### [id number] # ### [facility] CLIA [id number] [address] [place] [address] [place] CNOV Observed: 09/12/2024 4:45 PM Status: COMPLETED Source: [facility] Office Visit (WSTR) SHAWANDA BRINK ([id number]) 1 F Date Time Provider Department 09/12/24 4:45 PM BHARAT MOSHER [facility] During your visit today, we [...] AND RSV PCR, ROUTINE [SQCVFLRS] Order #: [id number]. #:[id number] Prescriptions as of 09/12/2024 - sertraline (ZOLOFT) 100 mg tablet Take 1 tablet by mouth once daily. Problem List As Of Date 09/12/2024 Noted Resolved Acne vulgaris [L70.0] 08/18/2015 Mild persistent asthma without complication [J4*09/27/2016 Flat foot [M21.40] 07/20/2017 Influenza vaccine refused [Z28.21] 07/20/2017 Depression [F32.A] 08/04/2021 Generalized anxiety disorder [F41.1] 08/04/2021 Level of Service: OFFICE/OUTPATIENT ESTABLISHED LOW MDM 20 MIN [91995] Letter Text Encounter Status:Closed by BHARAT MOSHER on 09/12/24 PROGRESS Observed: 09/12/2024 4:23 PM Status: COMPLETED Source: [facility] ID: [id number] Author: BHARAT MOSHER MD Service: ? Author [...] Observed: 08/14/2024 8:46 AM Status: COMPLETED Source: [facility] ID: [id number] Author: MAXINE ELLIS APRN.SUSANA Service: ? Author [...] visit. Either the patient or their legal outside sales representative has been informed of the risks [...] she experienced some difficulties logging in through [employer] for the appointment. She is 6 months [...] job in August. 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 Complete the [facility] lab work for monitoring. Focus on [...] PSYCHOTHERAPY CODE : No SIGNATURE: Maxine Ellis APRN.SUPERVISOR WOOD CREW PATIENT NAME: Shawanda Brink DATE: August 14, 2024 TIME: 8:47 AM HBSAB Collected: 12:00 PM Status: F Source: [facility] MAIN TYPE CODE TESTS RESULT OUT OF [...] Preparation. Performed By: #### HBSAB ### # [place] [address] SUSANAN Observed: 07/26/2024 12:00 AM Status: COMPLETED Source: [facility] Telephone (PSWSTR) SHAWANDA BRINK ([id number]) 1 F Date Time Provider Department 07/26/24 MAXINE ELLIS PSWSTR During your visit today, we recorded the following information about you: Queta Mccarty LPN 07/26/2024 2:16 PM Signed Call placed to scheduled VV for patient so refills can be sent to [facility] for Zoloft. VV on 08/14/2024 @ 8:30 Zoloft 50 mg 1 tab PO every day SHIRA Diaz Nishi J, AUTISTIC TEACHER.SUPERVISOR WOOD CREW 07/26/2024 2:21 PM Signed Noted scheduled follow [...] Observed: 06/28/2024 11:27 AM Status: COMPLETED Source: [facility] HNO ID: [id number] Author: MAXINE ELLIS APRN.SUSANA Service: ? Author Type: Nurse Practitioner Type: Progress Notes Filed: 06/28/2024 11:41 Note Text: Patient did not log in for her virtual appointment with the provider today. She did not grain picker her phone when she was contacted prior to the appointment time. MARS Observed: 06/05/2024 12:00 AM Status: COMPLETED Source: [facility] Telephone (CHIARAWS) SHAWANDA BRINK ([id number]) 03 F Date Time Provider Department 06/05/24 ISSAC FERNÁNDEZ During your visit today, we recorded the following information about you: Tessy Prabhakar LPN 06/05/2024 4:02 PM Signed Pt states her breast is tender, swollen AND painful, she is beginning to develop a rash. She has not checked her temp. Pt is concerned that she has mastitis. Pt is breast feeding. She has tried to contact her DISTRICT PLANT SUPERVISOR but they have not returned her [...] Observed: 05/17/2024 10:06 AM Status: COMPLETED Source: [facility] ID: [id number] Author: MAXINE ELLIS APRN.SUPERVISOR WOOD CREW Service: ? Author Type: Nurse Practitioner Type: Progress Notes Filed: 05/23/2024 23:13 Note Text: PSYC NEW - PSYCHIATRIC ASSESSMENT PATIENT: Shawanda Brink DATE: May 17, 2024 Patient was seen for an initial evaluation. I have communicated my name and active licensure. The patient's identity and physical location were verified at the time of this visit. Either the patient or their legal outside sales representative has been informed of the risks [...] 2 months. 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 She completed High school. She described her childhood as loving and supportive. My early teenage years were rough when my parents were going through a divorce. Patient states that her parents and stepparents are very supportive and helpful to her. The patient lives [facility] and her two children. Service: None Legal: Pt. denied any past legal history Spirituality/Muslim: Gnosticism FAMILY PSYCHIATRIC HISTORY: Mother-Major Depressive Disorder Dad- [...] which included preparing to see the patient, [id number] patient care, completing clinical documentation, obtaining and/or [...] Observed: 2023 11:56 AM Status: F Source: [facility] * * *Final Report* * * DATE [...] tissues: Unremarkable. IMPRESSION: No acute radiographic abnormality. Refrigeration Lead: PSCB Transcribe Date/Time: May 14 2024 12:07P Dictated by : ALEX CASTRO MD This examination was interpreted and the report reviewed and electronically signed by: ALEX CASTRO MD on May 14 2024 12:07PM EST [id number] Observed: 05/14/2024 11:40 AM Status: COMPLETED Source: [facility] HNO ID: [id number] Author: SANTY COKER RT(R) Service: Radiology Author [...] PATIENT PRESENTS WITH AN IMPLANTABLE OR ATTACHED AGRICULTURAL SERVICE TECHNICIAN: No RADIOLOGY DEPARTMENT: General X-ray: Exam(s) Completed: Chest X-Ray PERIPHERAL IV DATA: Not applicable SIGNED BY: RT Miguel(R) May 14, 2024 11:37 AM PROGRESS Observed: 05/14/2024 11:20 AM Status: COMPLETED Source: [facility] HNO ID: [id number] Author: SANTOS SOLER APRN.SUPERVISOR WOOD CREW Service: ? Author Type: Nurse Practitioner Type: [...] Maternal Grandmother Cervical Cancer Maternal Grandmother other (ND) Maternal Grandfather 49 other (depression and anxiety) [...] abnormality. Dictated by : MD Santos BURGOS APRN.CNP CNOV Observed: 05/14/2024 11:15 AM Status: COMPLETED Source: [facility] Office Visit (WSTR) CUBASHAWANDA Nuñez ([id number]) 1 F Date Time Provider Department 05/14/24 11:15 AM SANTOS SOLER [facility] During your visit today, we recorded the following information about you: Temperature Pulse Respiration Blood pressure 97.9 degrees 97/minute 18/minute 110/78 Weight 83.8 kg Santos Soler APRN.CNP 05/14/2024 12:33 PM Signed Subjective HPI HPI [...] Maternal Grandmother Cervical Cancer Maternal Grandmother other (ND) Maternal Grandfather 49 other (depression and anxiety) [...] radiographic abnormality. Dictated by : MD Santos BURGOS, LAVELL.SUPERVISOR WOOD CREW Allergies As of Date: 05/14/2024 Noted Allergy [...] Diagnosis:Acute cough [R05.1] Order(s):XR CHEST 2V FRONTAL/LAT [1098742] Order #: [id number]. #:[id number] amoxicillin-clavulanate potassium (AUGMENTIN) 875-125 mg per tabletTake [...] CODE NAME / CODE REACTION SEVERITY SOURCE 04/12/2025 DRUG INGREDI/7206325 03(SNOMED CT) PROCHLORPERAZINE [facility] 03/21/2024 DRUG INGREDI/0040526 03(SNOMED CT) CITALOPRAM OTHER: SEE C [facility] 03/21/2024 DRUG INGREDI/1007013 03(SNOMED CT) ESCITALOPRAM RASH [facility] ENCOUNTERS ADMIT/DISCHARGE ACCOUNT NUMBER ADMITTING ENCOUNTER CLASS LOCATION SOURCE 04/12/2025/ 5 [id number] [facility] 04/07/2025/ 5 [id number] Ambulatory [facility] ing[facility] 04/06/2025/ 5 [id number] [facility] 03/28/2025/ 5 [id number] Ambulatory [facility] HospitalBuild ing:AMARIS [facility] 03/28/2025/ 5 [id number] [facility] 03/22/2025/ 5 [id number] Ambulatory [facility] HospitalBuild ing:[facility] 03/21/2025/ 5 [id number] Ambulatory [facility] HospitalBuild ing:PSWSTR [facility] 03/20/2025/ 5 [id number] Ambulatory [facility] HospitalBuild ing:WOLB [facility] 03/19/2025/ 5 [id number] Ambulatory [facility] HospitalBuild ing:WOCA [facility] 03/14/2025/ 5 [id number] [facility] 03/05/2025/ 5 [id number] [facility] 03/03/2025/ 5 [id number] [facility] 02/22/2025 [id number] Ambulatory [facility] 02/18/2025/ 5 [id number] Ambulatory [facility] HospitalBuild ing:WOLB [facility] 02/14/2025/ 5 [id number] [facility] 02/14/2025/ 5 [id number] Ambulatory [facility] 02/10/2025/ 5 [id number] Ambulatory [facility] 02/07/2025/ 5 [id number] [facility]ulatory [facility] 01/31/2025 [id number] [facility] 01/25/2025/ 5 [id number] Ambulatory [facility] 12/28/2024/ 5 [id number] Ambulatory [facility] HospitalBuild ing:WOLB [facility] 12/27/2024/ 5 [id number] [facility]ulatory [facility] 11/30/2024/ 5 [id number] [facility]ulatory [facility] 11/22/2024/ 5 [id number] Ambulatory [facility] HospitalBuild ing:PSWSTR [facility] 11/06/2024/ 5 [id number] Ambulatory [facility] HospitalBuild ing:WOUC [facility] 11/01/2024/ 5 [id number] [facility] 10/18/2024/ 5 [id number] Ambulatory [facility] HospitalBuild ing:PSWSTR [facility] 10/09/2024/ 5 [id number] Ambulatory ABuilding:DPO B [facility] MAIN 10/08/2024/ 5 [id number] [facility]ulatory [facility] 09/12/2024/ 5 [id number] Ambulatory [facility] 08/14/2024/ 5 [id number] [facility]PSWSTR [facility] 06/28/2024/ 4 [id number] Ambulatory [facility] HospitalBuild ing:PSTR [facility] 05/17/2024/ 4 [id number] Ambulatory [facility] HospitalBuild ing:PSWSTR [facility] 05/14/2024/ 4 [id number] [facility] 05/14/2024/ 4 [id number] [facility]ulatory [facility] PAYERS ENCOUNTER GUARANTOR PAYER SUBSCRIBER SOURCE 04/12/2025 Primary Insurance:ART Root Number: [id number] Date:5766-13-34Xcug Name:Loraine BRINKDOB: [id number] [address] [place] [id number] [place] [address] 04/07/2025 Primary Insurance:CIGNA OAPPolicy Number: [id number] Date:4990-51-57Utci Name:Loraine KCESDOB: [id number] [address] [place] [phone] [place] [address] 04/06/2025 Primary Insurance:CIGNA OAPPolicy Number: [id number] Date:5686-30-66Dtvo Name:Loraine BRINKDOB: [id number] [address] [place] [address] 03/28/2025 Primary Insurance:CIGNA OAPPolicy Number: [id number] Date:7103-86-35Gnda Name:Loraine KCESDOB: [birth year] [address] [place], [place] [address] [place] [address] 03/28/2025 Primary Insurance:CIGNA OAPPolicy Number: [id number] Date:1482-24-73Iylu Name:Loraine KCESDOB: [id number] [address] [place], [place] [address] [place] [address] 03/22/2025 Primary Insurance:CIGNA OAPPolicy Number: [id number] Date:2951-76-75Kjqe Name:Loraine KCESDOB: [id number] [address] [place] [phone] [place] [address] 03/21/2025 Primary Insurance:CIGNA OAPPolicy Number: [id number] Date:9662-74-33Mmnf Name:Loraine KCESDOB: [id number] [address] [place], [place] [address] [place] [address] 03/20/2025 Primary Insurance:CIGNA OAPPolicy Number: [id number] Date:0458-03-27Ivib Name:Loraine KCESDOB: [id number] [address] [place] [phone] [place] [address] 03/19/2025 Primary Insurance:CIGNA OAPPolicy Number: [id number] Date:4926-00-50Iscj Name:Loraine KCESDOB: [id number] [address] [place] [phone] [place] [address] 03/14/2025 Primary Insurance:CIGNA OAPPolicy Number: [id number] Date:6252-28-83Ujop Name:Loraine KCESDOB: [id number] [facility] [address] [place] [phone] [place] [address] 03/05/2025 Primary Insurance:CIGNA OAPPolicy Number: [id number] Date:0023-25-98Ryzo Name:Loraine KCESDOB: [id number] [facility] [address] [place] [id number] [place] [address] 03/03/2025 Primary Insurance:CIGNA OAPPolicy Number: [id number] Date:2566-72-59Ccfo Name:Loraine KCESDOB: [id number] [address] [place] [phone] [place] [address] 02/22/2025 Primary Insurance:CIGNA OAPPolicy Number: [id number] Date:0729-72-80Arbf Name:Loraine KCESDOB: [id number] [address] [place] [phone] [place] [address] 02/18/2025 Primary Insurance:CIGNA OAPPolicy Number: [id number] Date:4053-13-46Klqn Name:Loraine KCESDOB: [id number] [address] 02/14/2025 Primary Insurance:CIGNA OAPPolicy Number: [id number] Date:1040-78-81Bszc Name:Loraine BRINKDOB: [id number] [address] [place] [phone] [place] [address] 02/14/2025 Primary Insurance:CIGNA OAPPolicy Number: [id number] Date:8318-55-13Umvx Name:Loraine KCESDOB: [id number] [facility] [address] [place] [address] 02/10/2025 Primary Insurance:CIGNA OAPPolicy Number: [id number] Date:6098-95-25Scid Name:Loraine KCESDOB: [id number] [facility] [address] [place] [address] 02/07/2025 Primary Insurance:CIGNA OAPPolicy Number: [id number] Date:7227-70-71Hjeh Name:Loraine SHAWANDA M SILVERIOESDOB: [id number] [facility] [address] [place] [address] 01/31/2025 Primary Insurance:CIGNA OAPPolicy Number: [id number] Date:3126-71-70Sigt Name:Loraine KCESDOB: [id number] [address] [place], [place] [address] [place] [address] 01/25/2025 Primary Insurance:CIGNA OAPPolicy Number: [id number] Date:9244-32-91Cdjj Name:Loraine KCESDOB: [id number] [facility] [address] [place] [address] 12/28/2024 Primary Insurance:CIGNA OAPPolicy Number: [id number] Date:3414-43-39Kplo Name:Loraine SHAWANDA M MANGESDOB: [id number] [address] [place] [phone] [place] [address] 12/27/2024 Primary Insurance:CIGNA OAPPolicy Number: [id number] Date:4255-09-93Btnl Name:Loraine KCESDOB: [id number] [address] [place] [address] [facility] 11/30/2024 Primary Insurance:CIGNA OAPPolicy Number: [id number] Date:2794-78-78Tchc Name:Loraine KCESDOB: [id number] [address] [place] [phone] [place] [address] 11/22/2024 Primary Insurance:CIGNA OAPPolicy Number: [id number] Date:6206-72-83Sjqz Name:Loraine KCESDOB: [id number] [address] [place] [id number] [place] [address] 11/06/2024 Primary Insurance:CIGNA OAPPolicy Number: [id number] Date:1727-35-71Qieq Name:Loraine KCESDOB: [id number] [address] [place] [phone] [place] [address] 11/01/2024 Primary Insurance:CIGNA OAPPolicy Number: [id number] Date:4678-64-84Ivxr Name:Loraine KCESDOB: [id number] [address] [place] [phone] [place] [address] 10/18/2024 Primary Insurance:CIGNA OAPPolicy Number: [id number] Date:7489-29-93Nafy Name:Loraine KCESDOB: [id number] [address] [place] [phone] [place] [address] 10/09/2024 SHAWANDA SILVERIOPOOJADOB: [address] [email or web address] : () Primary Insurance:CIGNA INSCOPolicy Number: [id number] Date:9050-32-00Ioup Name:CPO Krystian Quan119800[place] [address]XS: SHAWANDA SILVERIOPOOJADOB: [id number] [address]Ugv: () [facility] 10/08/2024 SHAWANDA SILVERIOPOOJADOB: [address] [email or web address] : () Primary Insurance:CIGNA INSCOPolicy Number: [id number] Date:0647-39-25Zezw Name:CPO SOLIS 401846UNHJZJUPEGU, [place] [address]NP: MARILOU MANGESDOB: [id number] [address]Rhm: (HP) () [facility] 09/12/2024 Primary Insurance:CIGNA OAPPolicy Number: [id number] Date:2546-65-22Fipc Name:Loraine BRINKDOB: [id number] [place] [address] [facility] 08/14/2024 Primary Insurance:CIGNA OAPPolicy Number: [id number] Date:4238-60-42Ttmu Name:Loraine BRINKDOB: [id number] [address] [place] [address] [facility] 06/28/2024 Primary Insurance:CIGNA OAPPolicy Number: [id number] Date:4764-21-02Mmnb Name:Loraine BRINKDOB: [id number] [address] [place] [address] 05/17/2024 Primary Insurance:CIGNA OAPPolicy Number: [id number] Date:9964-98-10Crys Name:Loraine BRINKDOB: [id number] [address] [place] [id number] 05/14/2024 Primary Insurance:CIGNA OAPPolicy Number: [id number] Date:[id number] Name:Loraine BRINKDOB: [birth year] PELICAN ROSA [address] [place], [place] [id number] [place] [address] 05/14/2024 Primary Insurance:CIGNA OAPPolicy Number: [id number] Date:[id number] Name:Loraine BRINKDOB: [birth year] PELICAN ROSA [address] [place] [address]
[2025-04-15 12:05] VITALS: BP 139/103; PULSE 94; RESP 16; TEMP 36.8; O2SAT 100; BMI 27.6
--- NOTE | 2025-04-15 12:23 | EX.ED.DYSGE1 ---
HPI History of Present Illness Chief Complaint: General Illness Informant: patient Onset/Context/Timing Onset: Weeks (1) Context: Gradual Onset Timing: Continuous Quality: Aching, stabbing Location: Low back Worsened by: Nothing Relieved by: Tylenol Narrative Narrative: Patient presents with increasing fatigue, shortness of breath, dizziness, intermittent fevers, and tachycardia that was noted today progressively worse over the past week. Patient describes it as aching and stabbing. Patient states it has been constant. Patient states she had recent labs which showed elevated liver function test. Patient states her pain does get better with Tylenol. Patient admits to some subjective chills. Patient admits to some nausea and urinary frequency. Patient states she has some pain in her low back. Patient also admits to a headache. [facility] Medical History Navel cellulitis Former smoker Hx of gestational diabetes in prior , currently Vaginal delivery hemorrhage depression Gestational diabetes Panic disorder Generalized anxiety disorder Bipolar 2 disorder Seasonal allergies Contraception management Anemia due to blood loss, acute hemorrhage macrosomia GBS (group B Streptococcus carrier), +RV culture, currently Gestational diabetes Anxiety Palpitations Supervision of high risk , antepartum Asthma Depression Home Medications ?Medication ?Instructions ?Recorded ?Last Taken ?Type fluticasone propionate 50 1 spray intranasal BID #16 grams 02/08/25 Unknown Rx mcg/actuation nasal spray,suspension loratadine 10 mg tablet (Claritin) 10 mg PO QDAY 04/03/25 Unknown History mupirocin 2 % topical ointment 1 applic topical BID #22 grams 04/03/25 Unknown Rx amitriptyline 25 mg tablet 25 mg PO QHS 04/13/25 Unknown History cephalexin 500 mg capsule 500 mg PO Q6 #28 CAPSULES 04/13/25 Unknown Rx eletriptan 20 mg tablet 20 mg PO PRN PRN migraine 04/13/25 Unknown History propranolol 10 mg tablet 10 mg PO BID 04/13/25 Unknown History Allergy/AdvReac Type Severity Reaction Status Date / Time prochlorperazine (From Allergy Mild anxiety Verified 04/15/25 12:05 Compazine) citalopram (From Celexa) Allergy Other Verified 04/15/25 12:05 escitalopram (From Lexapro) Allergy Other Verified 04/15/25 12:05 Family History Grandmother Cervical cancer, Onset Age: 40 maternal Family history of recurrent miscarriage maternal- 2 miscarriages Grandfather Myocardial infarction Father Heart disease Mother Family history of recurrent miscarriage 2 miscarriages Aunt Family history of recurrent miscarriage Maternal- 2 miscarriages Social History adopted: No household members: significant other and children housing: house number of children: 1 current occupational status: employed current occupation: Will be starting at [employer] current occupational exposures/hazards: No pets and animals: No (not managing litterbox while ) history of recent travel: No ([place]) sexually active: Yes Smoking Status: Former smoker Electronic Cigarette Use: with nicotine how long ago did patient quit smoking: Quit 04/08 alcohol intake: never substance use type: does not use well-balanced diet: daily or most days caffeine: No (ocassional) eating out: 1-3 times/week during the past year weight has: increased > 10 lbs what type of physical activity do you participate in: none jose/judaism: Christianity seatbelt use: always do you feel safe at home: Yes additional social history: [employer] ROS ROS ED Constitutional Constitutional ED: Reports chills, fever(s) and subjective Eyes Eyes: Reports blurry vision; Denies diplopia ENT ENT ED: Reports sore throat; Denies rhinorrhea Cardiovascular Cardiovascular: Reports chest pain, palpitations and racing heartbeat Respiratory/Chest Respiratory/Chest: Reports dyspnea; Denies cough Gastrointestinal Gastrointestinal: Reports nausea; Denies vomiting Genitourinary Genitourinary ED: Reports urinary frequency; Denies dysuria or hematuria Musculoskeletal Musculoskeletal: Reports back pain; Denies neck pain Integumentary Reports rash; Denies abscess Neurologic Neurologic: Reports headache(s) and weakness Allergic/Immunologic Allergic/Immunologic ED: Denies mouth swelling or urticaria EXAM Physical Exam Const Vital Signs: 04/15/25 12:05 04/15/25 13:27 04/15/25 14:01 Temperature 98.2 F Temperature Source Oral Pulse Rate 94 Pulse Rate [Lying] 83 Pulse Rate [Sitting (for 1 minute prior to obtaining)] 90 Pulse Rate [Standing (for 1 minute prior to obtaining)] 85 Respiratory Rate 16 Respiratory Pattern Normal Blood Pressure 139/103 H Blood Pressure [Lying] 109/72 Blood Pressure [Sitting (for 1 minute prior to obtaining)] 122/88 H Blood Pressure [Standing (for 1 minute prior to obtaining)] 124/90 H Blood Pressure Mean 115 Blood Pressure Mean [Lying] 84 Blood Pressure Mean [Sitting (for 1 minute prior to obtaining)] 99 Blood Pressure Mean [Standing (for 1 minute prior to obtaining)] 101 Pulse Ox 100 Oxygen Delivery Method Room Air 04/15/25 14:05 04/15/25 15:32 Temperature 98 F Temperature Source Pulse Rate 68 83 Pulse Rate [Lying] Pulse Rate [Sitting (for 1 minute prior to obtaining)] Pulse Rate [Standing (for 1 minute prior to obtaining)] Respiratory Rate 15 16 Respiratory Pattern Blood Pressure 111/70 135/99 H Blood Pressure [Lying] Blood Pressure [Sitting (for 1 minute prior to obtaining)] Blood Pressure [Standing (for 1 minute prior to obtaining)] Blood Pressure Mean 83 111 Blood Pressure Mean [Lying] Blood Pressure Mean [Sitting (for 1 minute prior to obtaining)] Blood Pressure Mean [Standing (for 1 minute prior to obtaining)] Pulse Ox 100 98 Oxygen Delivery Method Positive well nourished and well developed Constitutional Narrative: BMI is 27.6. General Appearance ED: well developed and NAD HEENT Reports moist mucous membranes Eyes PERRL and EOMs intact bilaterally General Eye ED: Negative for scleral icterus Neck supple and no JVD General: Negative for tenderness Resp normal respiratory effort and clear to auscultation bilaterally Cardio regular rate and regular rhythm GI non-distended Palpation: soft and tender RUQ and Lopez's sign; Negative for guarding or rebound tenderness present Extremity normal to inspection General Extremety ED: Negative for edema or tenderness General Extremity: Negative for edema Neuro oriented x3, CN's II-XII intact bilaterally and no sensory deficits noted Sensorium / Orientation: alert Motor Exam: strength 5/5 throughout Psych mental status grossly normal Skin no rashes or lesions noted, no wounds and skin turgor normal MDM MDM MDM Narrative Medical decision making narrative: Differential diagnosis includes cholecystitis, cholelithiasis, electrolyte abnormality, dehydration, acute kidney injury, pyelonephritis, urinary tract infection, pancreatitis, and viral illness. CBC will be obtained to assess for leukocytosis and anemia. Comprehensive metabolic profile will be obtained to assess for hepatic function, renal function, and electrolyte abnormality. Lipase will be obtained to assess for pancreatitis. Serum hCG will be obtained to assess for . PT with INR and PTT will be obtained to assess for coagulopathy. Urinalysis will be obtained to assess for urinary tract infection and hematuria. COVID-19, influenza, RSV PCR will be obtained to assess for viral illness. Right upper quadrant ultrasound will be obtained to assess for cholecystitis and cholelithiasis. History & Record Review Additional record(s) reviewed:: Prior outpatient record, Prior ED visit and Prior labs Lab Data Attestation: I reviewed the patient's lab results. Lab results narrative: CBC was reviewed. There is a slight anemia but hemoglobin of 11.7 and hematocrit 33.5. These are essentially unchanged from previous result. Comprehensive metabolic profile was reviewed and was essentially within normal limits. PT with INR and PTT were reviewed and were within normal limits. Lipase was reviewed and was normal at 19. Serum hCG was reviewed and was negative. Urinalysis was reviewed. There is no evidence of urinary tract infection or hematuria. Labs: Laboratory Results - last 24 hr 04/15/25 12:52 WBC 5.9 RBC 3.91 L Hgb 11.7 L Hct 33.5 L MCV 85.7 MCH 29.9 MCHC 34.9 RDW Std Deviation 43.1 RDW Coeff of Symone 14.0 Plt Count 205 MPV 10.2 Immature Gran % (Auto) 0.300 Neut % (Auto) 25.3 L Lymph % (Auto) 67.5 H Whitley % (Auto) 4.2 Eos % (Auto) 1.9 Baso % (Auto) 0.8 Absolute Neuts (auto) 1.5 L Absolute Lymphs (auto) 3.99 Nucleated RBC % 0 Differential Comment SCANNED Diff Path Review May foll Atypical Lymphocytes 1+ PT 14.4 INR 1.1 APTT 31.3 Sodium 141 Potassium 3.6 Chloride 106 Carbon Dioxide 26.3 Anion Gap 10 BUN 6 Creatinine 0.63 L Estim Creat Clear Calc 138.33 Est GFR (MDRD) Non-Af 129 BUN/Creatinine Ratio 8.9 L Glucose 91 Calcium 8.8 Total Bilirubin 0.45 AST 35 H ALT 51 H Alkaline Phosphatase 103 Total Protein 6.7 Albumin 3.9 Globulin 2.8 Albumin/Globulin Ratio 1.4 Lipase 19 Serum , Qual NEGATIVE Urine Color Yellow Urine Clarity Sl. Cloudy Urine pH 8.0 Ur Specific [place] 1.020 Urine Protein Negative Urine Glucose (UA) Normal Urine Ketones Negative Urine Occult Blood Negative Urine Nitrite Negative Urine Bilirubin Negative Urine Urobilinogen Normal Ur Leukocyte Esterase Negative Urine RBC 0 SEEN Urine WBC 0 SEEN Ur Squamous Epith Cells 0-5 SEEN Urine Bacteria 0 SEEN Urine Mucus 0 SEEN Radiography Diagnostic Testing: Clinical Impression(s) from Imaging Studies Gallbladder Ultrasound 04/15/25 12:39 IMPRESSION: Normal gallbladder and bile ducts. Reading Location: [place] [id number] Gallbladder ultrasound was obtained. There is no evidence of acute cholecystitis or cholelithiasis. There is no ductal dilatation noted. This was interpreted by the radiologist and was also independently reviewed by myself. Treatment and Re-Evaluation :: Patient was given IV fluids and Zofran. Orthostatic vital signs were obtained and were within normal limits. Patient was given a GI cocktail. Patient feeling better on reevaluation. Patient was advised of her findings. Patient was instructed to drink plenty of fluids. Patient was instructed to follow-up with her primary care physician in 5 to 7 days. Patient understood and was agreeable with the plan. All questions were answered. Discharge Plan Triage Chief Complaint: General Illness ED Provider: John Dash Dx/Rx/DC Orders Clinical Impression: Dizziness, nonspecific, Nicotine vapor product user Instructions: ED Dizziness, Uncertain Cause Prescriptions: No Action loratadine [Claritin] 10 mg tablet 10 mg PO QDAY mupirocin 2 % ointment 1 applic topical BID Qty: 22 0RF Rx Instructions: for 10 days; if no improvement then f/u w/ primary care provider fluticasone propionate 50 mcg/actuation spray,suspension 1 spray intranasal BID Qty: 16 0RF Rx Instructions: administer 1 spray into each nostril propranolol 10 mg tablet 10 mg PO BID Patient Comments: pt has not started med yet eletriptan 20 mg tablet 20 mg PO PRN PRN (Reason: migraine) amitriptyline 25 mg tablet 25 mg PO QHS cephalexin 500 mg capsule 500 mg PO Q6 Qty: 28 0RF Primary Care Provider: Veronica Muse NP Referrals: Veronica Muse NP, [facility] [Primary Care Provider, Medical] - 5-7 Days Print Language: Hungarian Disposition Disposition: Home, Self Care Discharge Date/Time: 04/15/25 15:33
--- NOTE | 2025-04-15 12:39 | US_ITS ---
PROCEDURE: GALLBLADDER 04/15/2025 REASON FOR EXAM: PAIN TECHNIQUE: Procedure Code: USGB Modality: US Procedure: GALLBLADDER FINDINGS: Liver: The liver has homogeneous echogenicity with smooth contour measuring 17.4 cm. Gallbladder: No stones, sludge, wall thickening or tenderness. Common bile duct: Normal measuring 2.2 mm. Pancreas: Visualized portions are sonographically unremarkable. Other: US/Gallbladder IMPRESSION: Normal gallbladder and bile ducts. Reading Location: [place] [id number]
[2025-04-15 13:06] LABS: Mucous, Urine 0 SEEN /hpf (<or=2+); Red Blood Cells-Urine 0 SEEN /hpf (0-5)
[2025-04-15 13:13] LABS: Color, Urine Yellow (Yellow); Glucose, Dipstick Normal (Normal); Hematocrit 33.5 % (37-47); Hemoglobin 11.7 g/dL (12.0-15.0); Immature Granulocytes Count 0.020 X10^3/uL (0.0-0.0); Ketone-Dipstick Negative (Negative); Leukocyte Esterase-Dipstick Negative /ul (Negative); Mean Corp Hgb Conc 34.9 g/dL (32-36); Mean Corpuscular Volume 85.7 fL (81-99); Mean Platelet Vol. 10.2 fl (6.2-12.0); NRBC Flagged by Analyzer 0 % (0-5); Nitrite-Dipstick Negative (Negative); Occult Blood-Urine Negative /ul (Negative); POSITIVE MORPHOLOGY YES; Platelet Count 205 K/mm3 (150-450); Protein-Dipstick Negative (Negative); RBC Distribution Width CV 14.0 % (11.6-14.6); RBC Distribution Width SD 43.1 fl (35.1-43.9); Red Blood Count 3.91 M/mm3 (4.2-5.4); Specific Gravity, Urine 1.020 (1.002-1.030); Urine Bilirubin Dipstick Negative (Negative); White Blood Count 5.9 K/mm3 (4.4-11.0)
[2025-04-15 13:14] LABS: Differential Indicated SCAN CRITERIA MET
[2025-04-15 13:17] LABS: Prothrombin Time (Protime)PT. 14.4 SECONDS (11.7-14.9)
[2025-04-15 13:18] LABS: Partial Thromboplast Time 31.3 Seconds (24.1-36.2); Squamous Epithelial Cells - UA 0-5 SEEN /hpf (5-10)
[2025-04-15 13:27] VITALS: BP 109/72; BP 122/88; BP 124/90; PULSE 83; PULSE 85; PULSE 90
[2025-04-15 13:35] LABS: Internal QC Validated? YES +Cl - CLEAR BKGD; Pregnancy, Serum, hCG Quali. NEGATIVE Negative; Record Kit Lot#, Serum Preg. 980607
[2025-04-15 13:37] LABS: Differential Comment SCANNED
[2025-04-15 13:38] LABS: AST(SGOT) 35 U/L (<=31); Alanine Aminotransfer ALT/SGPT 51 U/L (<=34); Albumin, Serum 3.9 g/dL (3.5-5.0); Alkaline Phosphatase 103 U/L (35-104); Anion Gap 10 (5-15); BUN 6 mg/dL (4-19); BUN/Creat Ratio 8.9 RATIO (10-20); Calcium,Total 8.8 mg/dL (7.6-11.0); Carbon Dioxide 26.3 mmol/L (21.0-32.0); Chloride 106 mmol/L (98-108); Estimated Creatinine Clearance 138.33 ml/min (50-250); Globulin 2.8 g/dL (2.2-4.2); Glucose 91 mg/dL (70-99); Lipase 19 U/L (13-75); Potassium 3.6 mmol/L (3.3-5.1)
[2025-04-15 14:05] VITALS: BP 111/70; PULSE 68; RESP 15; O2SAT 100
[2025-04-15] MEDS: Lidocaine 2% Viscous15 ML UDC 15 ML PO (14:31)
[2025-04-15 15:32] VITALS: BP 135/99; PULSE 83; RESP 16; TEMP 36.6; O2SAT 98
== END 2025-04-15 15:33 | disposition home or self-care (01) ==
PROVIDERS: Emergency Provider Emergency Medicine; PCP Nurse Practitioner Primary Care; Visit Provider Emergency Medicine
DX: R42 Dizziness and giddiness (principal); Z87.891 Personal history of nicotine dependence
CPT/HCPCS: 76705; 80053; 81001; 83690; 84703; 85025; 85610; 85730; 87631; 99284; A4216; J2405